=== PATIENT | female | born 1985 | race Caucasian/White ===

== ENCOUNTER 2020-08-15 06:34 | Day surgery (SDC) | payer OTHER, SELFPAY ==
[2020-08-12 08:54] VITALS: BMI 20.2
--- NOTE | 2020-08-13 10:50 | HO.ANESPROP2 ---
Documented by User: Claire Bernardo 08/13/20 10:53 HPI - Anesthesia Eval Consult details Narrative: 35yo F for ECT Mult allergies PMFSH Past Medical History Medical History Anxiety Bipolar 1 disorder Depression History of electroconvulsive therapy Vasovagal episode Social History Social History Smoking Status: Never smoker Second Hand Smoke Exposure: No Use of substances other than those prescribed or required for medical reasons: No Advance Directives: No Advance Directives Information Provided: No Meds Allergies Allergy/AdvReac Type Severity Reaction Status Date / Time adhesive tape [ADHESIVE TAPE] Allergy Unknown unknown Unverified 07/31/20 17:22 bee pollen [BEE STINGS] Allergy Unknown anaphylaxis Unverified 07/31/20 17:22 Iodinated Contrast Media Allergy Unknown unknown Unverified 07/31/20 17:22 [CONTRAST, IV] metaxalone [From SKELAXIN] Allergy Unknown unknown Unverified 07/31/20 17:22 monocryl/vicryl sutures Allergy Unknown unknown Unverified 07/31/20 17:22 morphine [MORPHINE] Allergy Unknown unknown Unverified 07/31/20 17:22 moxifloxacin [From AVELOX] Allergy Unknown unknown Unverified 07/31/20 17:22 orange [ORANGES] Allergy Unknown anaphylaxis Unverified 07/31/20 17:22 red dye [RED DYE] Allergy Unknown unknown Unverified 07/31/20 17:22 Sulfa (Sulfonamide Allergy Unknown UNKNOWN Unverified 07/31/20 17:22 Antibiotics) [SULFA (SULFONAMIDE ANTIBIOTICS)] lamotrigine [From LAMICTAL] AdvReac Intermediate hx of Unverified 07/31/20 17:22 yennifer on doses greater that 200 mg Adhesive Bandages Allergy Unknown Uncoded 11/13/19 00:00 bees/wasps Allergy Unknown Uncoded 11/13/19 00:00 ivp contrast dye Allergy Unknown Uncoded 11/13/19 00:00 lychees Allergy Unknown Uncoded 11/13/19 00:00 oranges Allergy Unknown Uncoded 11/13/19 00:00 red dyes Allergy Unknown Uncoded 11/13/19 00:00 Home Medications Medication Instructions Recorded Confirmed Type albuterol mcg INHALATION 08/12/20 History cariprazine [Vraylar] 6 mg PO DAILY 08/12/20 08/12/20 History cetirizine [Zyrtec] 10 mg PO DAILY 08/12/20 08/12/20 History clonazepam 1 mg PO DAILY 08/12/20 08/12/20 History clozapine [Clozaril] 50 mg PO BID 08/12/20 08/12/20 History dexmethylphenidate 10 mg PO BID 08/12/20 08/12/20 History diphenhydramine HCl [Banophen] 50 mg PO TID PRN 08/12/20 08/12/20 History epinephrine 0.1 mg IM Q30M PRN 08/12/20 08/12/20 History famotidine 40 mg PO BEDTIME 08/12/20 08/12/20 History fluticasone propion-salmeterol 1 inh INHALATION BID 08/12/20 08/12/20 History [Advair Diskus] fluticasone propionate [Flonase] 1 spray INTRANASAL BID 08/12/20 08/12/20 History ipratropium-albuterol 3 ml INHALATION QID 08/12/20 08/12/20 History levonorgestrel-ethinyl estrad 1 tab PO DAILY 08/12/20 08/12/20 History [Quasense] metoprolol tartrate 25 mg PO BID 08/12/20 08/12/20 History prazosin 5 mg PO TID 08/12/20 08/12/20 History temazepam 30 mg PO BEDTIME PRN 08/12/20 08/12/20 History topiramate 50 mg PO BID 08/12/20 08/12/20 History zolpidem 10 mg PO BEDTIME PRN 08/12/20 08/12/20 History Exam Exam Date and Time: August 13, 2020 1050 Height,Weight and Vital Signs: Height 5 ft 9 in Weight 62.142 kg Documented by User: Paulina Molina 08/15/20 07:15 [facility] [place] Past Medical History Medical History Anxiety Bipolar 1 disorder Depression History of electroconvulsive therapy Vasovagal episode Social History Social History Smoking Status: Never smoker Second Hand Smoke Exposure: No Use of substances other than those prescribed or required for medical reasons: No Advance Directives: No Advance Directives Information Provided: No Meds Allergies Allergy/AdvReac Type Severity Reaction Status Date / Time adhesive tape [ADHESIVE TAPE] Allergy Unknown unknown Unverified 07/31/20 17:22 bee pollen [BEE STINGS] Allergy Unknown anaphylaxis Unverified 07/31/20 17:22 Iodinated Contrast Media Allergy Unknown unknown Unverified 07/31/20 17:22 [CONTRAST, IV] metaxalone [From SKELAXIN] Allergy Unknown unknown Unverified 07/31/20 17:22 monocryl/vicryl sutures Allergy Unknown unknown Unverified 07/31/20 17:22 morphine [MORPHINE] Allergy Unknown unknown Unverified 07/31/20 17:22 moxifloxacin [From AVELOX] Allergy Unknown unknown Unverified 07/31/20 17:22 orange [ORANGES] Allergy Unknown anaphylaxis Unverified 07/31/20 17:22 red dye [RED DYE] Allergy Unknown unknown Unverified 07/31/20 17:22 Sulfa (Sulfonamide Allergy Unknown UNKNOWN Unverified 07/31/20 17:22 Antibiotics) [SULFA (SULFONAMIDE ANTIBIOTICS)] lamotrigine [From LAMICTAL] AdvReac Intermediate hx of Unverified 07/31/20 17:22 yennifer on doses greater that 200 mg Adhesive Bandages Allergy Unknown Uncoded 11/13/19 00:00 bees/wasps Allergy Unknown Uncoded 11/13/19 00:00 ivp contrast dye Allergy Unknown Uncoded 11/13/19 00:00 lychees Allergy Unknown Uncoded 11/13/19 00:00 oranges Allergy Unknown Uncoded 11/13/19 00:00 red dyes Allergy Unknown Uncoded 11/13/19 00:00 Home Medications Medication Instructions Recorded Confirmed Type albuterol mcg INHALATION 08/12/20 History cariprazine [Vraylar] 6 mg PO DAILY 08/12/20 08/12/20 History cetirizine [Zyrtec] 10 mg PO DAILY 08/12/20 08/12/20 History clonazepam 1 mg PO DAILY 08/12/20 08/12/20 History clozapine [Clozaril] 50 mg PO BID 08/12/20 08/12/20 History dexmethylphenidate 10 mg PO BID 08/12/20 08/12/20 History diphenhydramine HCl [Banophen] 50 mg PO TID PRN 08/12/20 08/12/20 History epinephrine 0.1 mg IM Q30M PRN 08/12/20 08/12/20 History famotidine 40 mg PO BEDTIME 08/12/20 08/12/20 History fluticasone propion-salmeterol 1 inh INHALATION BID 08/12/20 08/12/20 History [Advair Diskus] fluticasone propionate [Flonase] 1 spray INTRANASAL BID 08/12/20 08/12/20 History ipratropium-albuterol 3 ml INHALATION QID 08/12/20 08/12/20 History levonorgestrel-ethinyl estrad 1 tab PO DAILY 08/12/20 08/12/20 History [Quasense] metoprolol tartrate 25 mg PO BID 08/12/20 08/12/20 History prazosin 5 mg PO TID 08/12/20 08/12/20 History temazepam 30 mg PO BEDTIME PRN 08/12/20 08/12/20 History topiramate 50 mg PO BID 08/12/20 08/12/20 History zolpidem 10 mg PO BEDTIME PRN 08/12/20 08/12/20 History Exam Airway Mallampati Class: I TM Dist: >3cm Neck ROM: Full Heart: RRR Lungs: CTA Assessment and Plan Assessment Anesthesia Assessment: Anesthesia Plan Discussed and Consent Obtained Final Anesthetic Review NPO: Yes ASA Class: II Final Preanesthetic Review: No Changes in Pt Med Stat, Meds & Allergies Reviewed, Consent Obtained/Reviewed and Med/Surg/Anes Hx Reviewed Patient Risk: Low Procedure Risk: Intermediate Anesthetic Plan Anesthetic Plan: GA Disposition: Standard PACU
[2020-08-15] VITALS (7 sets, daily range): BP systolic 107–133; BP diastolic 70–89; PULSE 84–112; RESP 16–28; TEMP 36.5–37.3; O2SAT 100
[2020-08-15] MEDS: Lactated Ringers 1,000 ML 100 ML IVCONT (06:46)
--- NOTE | 2020-08-15 07:05 | MHC.SHP ---
Surgical H&P Section B Chief Complaint: SEVERE DEPRESSION Allergies: Allergies Allergy/AdvReac Type Severity Reaction Status Date / Time adhesive tape [ADHESIVE TAPE] Allergy Unknown unknown Unverified 07/31/20 17:22 bee pollen [BEE STINGS] Allergy Unknown anaphylaxis Unverified 07/31/20 17:22 Iodinated Contrast Media Allergy Unknown unknown Unverified 07/31/20 17:22 [CONTRAST, IV] metaxalone [From SKELAXIN] Allergy Unknown unknown Unverified 07/31/20 17:22 monocryl/vicryl sutures Allergy Unknown unknown Unverified 07/31/20 17:22 morphine [MORPHINE] Allergy Unknown unknown Unverified 07/31/20 17:22 moxifloxacin [From AVELOX] Allergy Unknown unknown Unverified 07/31/20 17:22 orange [ORANGES] Allergy Unknown anaphylaxis Unverified 07/31/20 17:22 red dye [RED DYE] Allergy Unknown unknown Unverified 07/31/20 17:22 Sulfa (Sulfonamide Allergy Unknown UNKNOWN Unverified 07/31/20 17:22 Antibiotics) [SULFA (SULFONAMIDE ANTIBIOTICS)] lamotrigine [From LAMICTAL] AdvReac Intermediate hx of Unverified 07/31/20 17:22 yennifer on doses greater that 200 mg Adhesive Bandages Allergy Unknown Uncoded 11/13/19 00:00 bees/wasps Allergy Unknown Uncoded 11/13/19 00:00 ivp contrast dye Allergy Unknown Uncoded 11/13/19 00:00 lychees Allergy Unknown Uncoded 11/13/19 00:00 oranges Allergy Unknown Uncoded 11/13/19 00:00 red dyes Allergy Unknown Uncoded 11/13/19 00:00 Plan Patient has been examined and remains a candidate for the planned procedure
--- NOTE | 2020-08-15 07:33 | HO.ECTPROC ---
ECT Procedure Note Diagnosis/Treatment Diagnosis: Bipolar disorder Previous ECT Date: 08/13/20 Current Treatment Number: 5 Treatment: Series Interval Clinical Notes: pt calmer not over manic flat dysphoric no si ECT Settings Device: THYMATRON DGx Electrode Placement: Right Unilateral Program/Pulse Width: 0.25 Energy Percent: 30 Seizure Duration By EEG (in seconds): 41 Medications Administration General Anesthetic: Etomidate (16 mg) Muscle Relaxant: Succinylcholine (100 mg) Ancillary Medications Analgesics: Torodol - Pre ECT (15) Anti-emetics: Zofran - Pre ECT (4) Miscillaneous Medications: Propofol (30 mg post) and Midazolam (2 mg post) Airway Management Airway Management: Bag Mask Ventilation Treatment Recommendations No Changes Recommended: No change Pt Tolerated Procedure w/o Issue: Yes
--- NOTE | 2020-08-15 07:45 | MHC.SHP ---
Surgical H&P Section A The patient is an INPATIENT: No Changes since office visit: No Cold of Flu in the past 2 weeks, No New Medical Problems, No Changes in Medication and No Patient answered all questions The History & Physical has been completed within 30 days and I have reviewed it.: Yes Section B Chief Complaint: SEVERE DEPRESSION Allergies: Allergies Allergy/AdvReac Type Severity Reaction Status Date / Time adhesive tape [ADHESIVE TAPE] Allergy Unknown unknown Unverified 07/31/20 17:22 bee pollen [BEE STINGS] Allergy Unknown anaphylaxis Unverified 07/31/20 17:22 Iodinated Contrast Media Allergy Unknown unknown Unverified 07/31/20 17:22 [CONTRAST, IV] metaxalone [From SKELAXIN] Allergy Unknown unknown Unverified 07/31/20 17:22 monocryl/vicryl sutures Allergy Unknown unknown Unverified 07/31/20 17:22 morphine [MORPHINE] Allergy Unknown unknown Unverified 07/31/20 17:22 moxifloxacin [From AVELOX] Allergy Unknown unknown Unverified 07/31/20 17:22 orange [ORANGES] Allergy Unknown anaphylaxis Unverified 07/31/20 17:22 red dye [RED DYE] Allergy Unknown unknown Unverified 07/31/20 17:22 Sulfa (Sulfonamide Allergy Unknown UNKNOWN Unverified 07/31/20 17:22 Antibiotics) [SULFA (SULFONAMIDE ANTIBIOTICS)] lamotrigine [From LAMICTAL] AdvReac Intermediate hx of Unverified 07/31/20 17:22 yennifer on doses greater that 200 mg Adhesive Bandages Allergy Unknown Uncoded 11/13/19 00:00 bees/wasps Allergy Unknown Uncoded 11/13/19 00:00 ivp contrast dye Allergy Unknown Uncoded 11/13/19 00:00 lychees Allergy Unknown Uncoded 11/13/19 00:00 oranges Allergy Unknown Uncoded 11/13/19 00:00 red dyes Allergy Unknown Uncoded 11/13/19 00:00 Plan Patient has been examined and remains a candidate for the planned procedure
--- NOTE | 2020-08-15 07:52 | P.CONAN_ITS ---
[facility] Past Medical History Medical History Anxiety Bipolar 1 disorder Depression History of electroconvulsive therapy Vasovagal episode Social History Social History Smoking Status: Never smoker Second Hand Smoke Exposure: No Use of substances other than those prescribed or required for medical reasons: No Advance Directives: No Advance Directives Information Provided: No Meds Allergies Allergy/AdvReac Type Severity Reaction Status Date / Time adhesive tape [ADHESIVE TAPE] Allergy Unknown unknown Unverified 07/31/20 17:22 bee pollen [BEE STINGS] Allergy Unknown anaphylaxis Unverified 07/31/20 17:22 Iodinated Contrast Media Allergy Unknown unknown Unverified 07/31/20 17:22 [CONTRAST, IV] metaxalone [From SKELAXIN] Allergy Unknown unknown Unverified 07/31/20 17:22 monocryl/vicryl sutures Allergy Unknown unknown Unverified 07/31/20 17:22 morphine [MORPHINE] Allergy Unknown unknown Unverified 07/31/20 17:22 moxifloxacin [From AVELOX] Allergy Unknown unknown Unverified 07/31/20 17:22 orange [ORANGES] Allergy Unknown anaphylaxis Unverified 07/31/20 17:22 red dye [RED DYE] Allergy Unknown unknown Unverified 07/31/20 17:22 Sulfa (Sulfonamide Allergy Unknown UNKNOWN Unverified 07/31/20 17:22 Antibiotics) [SULFA (SULFONAMIDE ANTIBIOTICS)] lamotrigine [From LAMICTAL] AdvReac Intermediate hx of Unverified 07/31/20 17:22 yennifer on doses greater that 200 mg Adhesive Bandages Allergy Unknown Uncoded 11/13/19 00:00 bees/wasps Allergy Unknown Uncoded 11/13/19 00:00 ivp contrast dye Allergy Unknown Uncoded 11/13/19 00:00 lychees Allergy Unknown Uncoded 11/13/19 00:00 oranges Allergy Unknown Uncoded 11/13/19 00:00 red dyes Allergy Unknown Uncoded 11/13/19 00:00 Home Medications Medication Instructions Recorded Confirmed Type albuterol mcg INHALATION 08/12/20 History cariprazine [Vraylar] 6 mg PO DAILY 08/12/20 08/12/20 History cetirizine [Zyrtec] 10 mg PO DAILY 08/12/20 08/12/20 History clonazepam 1 mg PO DAILY 08/12/20 08/12/20 History clozapine [Clozaril] 50 mg PO BID 08/12/20 08/12/20 History dexmethylphenidate 10 mg PO BID 08/12/20 08/12/20 History diphenhydramine HCl [Banophen] 50 mg PO TID PRN 08/12/20 08/12/20 History epinephrine 0.1 mg IM Q30M PRN 08/12/20 08/12/20 History famotidine 40 mg PO BEDTIME 08/12/20 08/12/20 History fluticasone propion-salmeterol 1 inh INHALATION BID 08/12/20 08/12/20 History [Advair Diskus] fluticasone propionate [Flonase] 1 spray INTRANASAL BID 08/12/20 08/12/20 Histo ry ipratropium-albuterol 3 ml INHALATION QID 08/12/20 08/12/20 History levonorgestrel-ethinyl estrad 1 tab PO DAILY 08/12/20 08/12/20 History [Quasense] metoprolol tartrate 25 mg PO BID 08/12/20 08/12/20 History prazosin 5 mg PO TID 08/12/20 08/12/20 History temazepam 30 mg PO BEDTIME PRN 08/12/20 08/12/20 History topiramate 50 mg PO BID 08/12/20 08/12/20 History zolpidem 10 mg PO BEDTIME PRN 08/12/20 08/12/20 History Exam Exam Date and Time: August 15, 2020 075 Height,Weight and Vital Signs: Height 5 ft 9 in Weight 62.142 kg Last Vital Signs Temp 97.7 F 08/15/20 07:35 Pulse 105 H 08/15/20 07:43 Resp 25 H 08/15/20 07:43 BP 122/83 08/15/20 07:43 Pulse Ox 100 08/15/20 07:43
--- NOTE | 2020-08-15 08:00 | P.PCN_ITS ---
ECT Procedure Note Diagnosis/Treatment Diagnosis: Bipolar disorder Previous ECT Date: 08/13/20 Current Treatment Number: 5 Treatment: Series Interval Clinical Notes: pt calmer not over manic flat dysphoric no si discou raged ECT Settings Device: THYMATRON DGx Electrode Placement: Right Unilateral Program/Pulse Width: 0.25 Energy Percent: 30 Seizure Duration By EEG (in seconds): 41 Medications Administration General Anesthetic: Etomidate (16 mg) Muscle Relaxant: Succinylcholine (100 mg) Ancillary Medications Analgesics: Torodol - Pre ECT (15) Anti-emetics: Zofran - Pre ECT (4) Miscillaneous Medications: Propofol (30 mg post) and Midazolam (2 mg post) Airway Management Airway Management: Bag Mask Ventilation Treatment Recommendations No Changes Recommended: No change Pt Tolerated Procedure w/o Issue: Yes
[2020-08-15] MEDS: Acetaminophen 325 MG TABLET 650 MG PO (08:03)
[2020-08-15] MEDS: oxyCODONE HCl Immed Release 5 MG TABLET PO (08:04)
== END 2020-08-15 08:30 | disposition home or self-care (01) ==
PROVIDERS: Psychiatry & Neurology Psychiatry; PCP Internal Medicine; Visit Provider Psychiatry & Neurology Psychiatry
PROC: (CPT 90870; principal; 2020-08-15 07:00)
DX: F31.9 Bipolar disorder, unspecified (principal); F98.8 Other specified behavioral and emotional disorders with onset usually occurring in childhood and adolescence; F50.9 Eating disorder, unspecified; F43.10 Post-traumatic stress disorder, unspecified; J45.909 Unspecified asthma, uncomplicated; D64.9 Anemia, unspecified; Z79.51 Long term (current) use of inhaled steroids; Z79.899 Other long term (current) drug therapy; Z91.041 Radiographic dye allergy status; Z88.2 Allergy status to sulfonamides; Z88.1 Allergy status to other antibiotic agents; Z88.8 Allergy status to other drugs, medicaments and biological substances
CPT/HCPCS: 90870; J0330; J1885; J2250; J2405

== ENCOUNTER 2020-08-20 06:07 | Day surgery (SDC) | payer OTHER, SELFPAY ==
[2020-08-20] VITALS (11 sets, daily range): BP systolic 112–134; BP diastolic 68–88; PULSE 74–112; RESP 13–22; TEMP 36.9–37; O2SAT 98–100; BMI 19.2
--- NOTE | 2020-08-20 07:19 | HO.ANESPROP2 ---
[facility] Past Medical History Medical History Anxiety Bipolar 1 disorder Depression History of electroconvulsive therapy Vasovagal episode Social History Social History Smoking Status: Never smoker Second Hand Smoke Exposure: No Use of substances other than those prescribed or required for medical reasons: No Advance Directives: No Advance Directives Information Provided: Yes Advance Directives on File: No Recently lost weight without trying: No Meds Allergies Allergy/AdvReac Type Severity Reaction Status Date / Time adhesive tape [ADHESIVE TAPE] Allergy Unknown unknown Unverified 07/31/20 17:22 bee pollen [BEE STINGS] Allergy Unknown anaphylaxis Unverified 07/31/20 17:22 Iodinated Contrast Media Allergy Unknown unknown Unverified 07/31/20 17:22 [CONTRAST, IV] metaxalone [From SKELAXIN] Allergy Unknown unknown Unverified 07/31/20 17:22 monocryl/vicryl sutures Allergy Unknown unknown Unverified 07/31/20 17:22 morphine [MORPHINE] Allergy Unknown unknown Unverified 07/31/20 17:22 moxifloxacin [From AVELOX] Allergy Unknown unknown Unverified 07/31/20 17:22 orange [ORANGES] Allergy Unknown anaphylaxis Unverified 07/31/20 17:22 red dye [RED DYE] Allergy Unknown unknown Unverified 07/31/20 17:22 Sulfa (Sulfonamide Allergy Unknown UNKNOWN Unverified 07/31/20 17:22 Antibiotics) [SULFA (SULFONAMIDE ANTIBIOTICS)] lamotrigine [From LAMICTAL] AdvReac Intermediate hx of Unverified 07/31/20 17:22 yennifer on doses greater that 200 mg Adhesive Bandages Allergy Unknown Uncoded 11/13/19 00:00 bees/wasps Allergy Unknown Uncoded 11/13/19 00:00 ivp contrast dye Allergy Unknown Uncoded 11/13/19 00:00 lychees Allergy Unknown Uncoded 11/13/19 00:00 oranges Allergy Unknown Uncoded 11/13/19 00:00 red dyes Allergy Unknown Uncoded 11/13/19 00:00 Home Medications Medication Instructions Recorded Confirmed Type Vraylar 6 mg PO DAILY 08/12/20 08/12/20 History albuterol mcg INHALATION 08/12/20 History cetirizine [Zyrtec] 10 mg PO DAILY 08/12/20 08/12/20 History clonazepam 1 mg PO DAILY 08/12/20 08/12/20 History clozapine [Clozaril] 50 mg PO BID 08/12/20 08/12/20 History dexmethylphenidate 10 mg PO BID 08/12/20 08/12/20 History diphenhydramine HCl [Banophen] 50 mg PO TID PRN 08/12/20 08/12/20 History epinephrine 0.1 mg IM Q30M PRN 08/12/20 08/12/20 History famotidine 40 mg PO BEDTIME 08/12/20 08/12/20 History fluticasone propion-salmeterol 1 inh INHALATION BID 08/12/20 08/12/20 History [Advair Diskus] fluticasone propionate 1 spray INTRANASAL BID 08/12/20 08/12/20 History ipratropium-albuterol 3 ml INHALATION QID 08/12/20 08/12/20 History levonorgestrel-ethinyl estrad 1 tab PO DAILY 08/12/20 08/12/20 History metoprolol tartrate 25 mg PO BID 08/12/20 08/12/20 History prazosin 5 mg PO TID 08/12/20 08/12/20 History temazepam 30 mg PO BEDTIME PRN 08/12/20 08/12/20 History topiramate 50 mg PO BID 08/12/20 08/12/20 History zolpidem 10 mg PO BEDTIME PRN 08/12/20 08/12/20 History Exam Exam Date and Time: August 20, [id number] Height,Weight and Vital Signs: Height 5 ft 9 in Weight 133 kg Last Vital Signs Temp 98.4 F 08/20/20 06:51 Pulse 103 H 08/20/20 07:14 Resp 17 08/20/20 07:14 BP 121/81 08/20/20 07:14 Pulse Ox 100 08/20/20 07:14 Assessment and Plan Assessment Anesthesia Assessment: Anesthesia Plan Discussed Final Anesthetic Review NPO: Yes Final Preanesthetic Review: No Changes in Pt Med Stat, Meds/Allgs Chart Reviewed and Consent Obtained/Reviewed Patient Risk: Low Procedure Risk: Low Anesthetic Plan Anesthetic Plan: GA
[2020-08-20] MEDS: Lactated Ringers 1,000 ML 50 ML IVCONT (07:24)
--- NOTE | 2020-08-20 07:25 | P.CONAN_ITS ---
HPI - Anesthesia Eval Consult details Narrative: Major Depression [facility] Past Medical History Medical History Anxiety Bipolar 1 disorder Depression History of electroconvulsive therapy Vasovagal episode Social History Social History Smoking Status: Never smoker Second Hand Smoke Exposure: No Use of substances other than those prescribed or required for medical reasons: No Advance Directives: No Advance Directives Information Provided: Yes Advance Directives on File: No Recently lost weight without trying: No Meds Allergies Allergy/AdvReac Type Severity Reaction Status Date / Time adhesive tape [ADHESIVE TAPE] Allergy Unknown unknown Unverified 07/31/20 17:22 bee pollen [BEE STINGS] Allergy Unknown anaphylaxis Unverified 07/31/20 17:22 Iodinated Contrast Media Allergy Unknown unknown Unverified 07/31/20 17:22 [CONTRAST, IV] metaxalone [From SKELAXIN] Allergy Unknown unknown Unverified 07/31/20 17:22 monocryl/vicryl sutures Allergy Unknown unknown Unverified 07/31/20 17:22 morphine [MORPHINE] Allergy Unknown unknown Unverified 07/31/20 17:22 moxifloxacin [From AVELOX] Allergy Unknown unknown Unverified 07/31/20 17:22 orange [ORANGES] Allergy Unknown anaphylaxis Unverified 07/31/20 17:22 red dye [RED DYE] Allergy Unknown unknown Unverified 07/31/20 17:22 Sulfa (Sulfonamide Allergy Unknown UNKNOWN Unverified 07/31/20 17:22 Antibiotics) [SULFA (SULFONAMIDE ANTIBIOTICS)] lamotrigine [From LAMICTAL] AdvReac Intermediate hx of Unverified 07/31/20 17:22 yennifer on doses greater that 200 mg Adhesive Bandages Allergy Unknown Uncoded 11/13/19 00:00 bees/wasps Allergy Unknown Uncoded 11/13/19 00:00 ivp contrast dye Allergy Unknown Uncoded 11/13/19 00:00 lychees Allergy Unknown Uncoded 11/13/19 00:00 oranges Allergy Unknown Uncoded 11/13/19 00:00 red dyes Allergy Unknown Uncoded 11/13/19 00:00 Home Medications Medication Instructions Recorded Confirmed Type Vraylar 6 mg PO DAILY 08/12/20 08/12/20 History albuterol mcg INHALATION 08/12/20 History cetirizine [Zyrtec] 10 mg PO DAILY 08/12/20 08/12/20 History clonazepam 1 mg PO DAILY 08/12/20 08/12/20 History clozapine [Clozaril] 50 mg PO BID 08/12/20 08/12/20 History dexmethylphenidate 10 mg PO BID 08/12/20 08/12/20 History diphenhydramine HCl [Banophen] 50 mg PO TID PRN 08/12/20 08/12/20 History epinephrine 0.1 mg IM Q30M PRN 08/12/20 08/12/20 History famotidine 40 mg PO BEDTIME 08/12/20 08/12/20 History fluticasone propion-salmeterol 1 inh INHALATION BID 08/12/20 08/12/20 History [Advair Diskus] fluticasone propionate 1 spray INTRANASAL BID 08/12/20 08/12/20 History ipratropium-albuterol 3 ml INHALATION QID 08/12/20 08/12/20 History levonorgestrel-ethinyl estrad 1 tab PO DAILY 08/12/20 08/12/20 History metoprolol tartrate 25 mg PO BID 08/12/20 08/12/20 History prazosin 5 mg PO TID 08/12/20 08/12/20 History temazepam 30 mg PO BEDTIME PRN 08/12/20 08/12/20 History topiramate 50 mg PO BID 08/12/20 08/12/20 History zolpidem 10 mg PO BEDTIME PRN 08/12/20 08/12/20 History Exam Exam Date and Time: August 20, [id number] Height,Weight and Vital Signs: Height 5 ft 9 in Weight 58.967 kg Last Vital Signs Temp 98.4 F 08/20/20 06:51 Pulse 103 H 08/20/20 07:14 Resp 17 08/20/20 07:14 BP 121/81 08/20/20 07:14 Pulse Ox 100 08/20/20 07:14 Airway Mallampati Class: II TM Dist: >3cm Neck ROM: Full Loose/Missing/Broken Teeth: No Heart: [id number] Lungs: cta b/l Assessment and Plan Assessment Anesthesia Assessment: Anesthesia Plan Discussed and Chart Reviewed Final Anesthetic Review NPO: Yes ASA Class: II Final Preanesthetic Review: No Changes in Pt Med Stat, Meds/Allgs Chart Reviewed, Consent Obtained/Reviewed and Anes Risks/Benef Reviewed Patient Risk: Low Procedure Risk: Low Anesthetic Plan Anesthetic Plan: GA Disposition: Standard PACU
--- NOTE | 2020-08-20 07:40 | MHC.SHP ---
Pre-Procedural Eval Section A The patient is an INPATIENT: No Changes since office visit: No Cold of Flu in the past 2 weeks, No New Medical Problems, No Changes in Medication and No Patient answered all questions The History & Physical has been completed within 30 days and I have reviewed it.: Yes Section B Chief Complaint: severe depression Allergies: Allergies Allergy/AdvReac Type Severity Reaction Status Date / Time adhesive tape [ADHESIVE TAPE] Allergy Unknown unknown Unverified 07/31/20 17:22 bee pollen [BEE STINGS] Allergy Unknown anaphylaxis Unverified 07/31/20 17:22 Iodinated Contrast Media Allergy Unknown unknown Unverified 07/31/20 17:22 [CONTRAST, IV] metaxalone [From SKELAXIN] Allergy Unknown unknown Unverified 07/31/20 17:22 monocryl/vicryl sutures Allergy Unknown unknown Unverified 07/31/20 17:22 morphine [MORPHINE] Allergy Unknown unknown Unverified 07/31/20 17:22 moxifloxacin [From AVELOX] Allergy Unknown unknown Unverified 07/31/20 17:22 orange [ORANGES] Allergy Unknown anaphylaxis Unverified 07/31/20 17:22 red dye [RED DYE] Allergy Unknown unknown Unverified 07/31/20 17:22 Sulfa (Sulfonamide Allergy Unknown UNKNOWN Unverified 07/31/20 17:22 Antibiotics) [SULFA (SULFONAMIDE ANTIBIOTICS)] lamotrigine [From LAMICTAL] AdvReac Intermediate hx of Unverified 07/31/20 17:22 yennifer on doses greater that 200 mg Adhesive Bandages Allergy Unknown Uncoded 11/13/19 00:00 bees/wasps Allergy Unknown Uncoded 11/13/19 00:00 ivp contrast dye Allergy Unknown Uncoded 11/13/19 00:00 lychees Allergy Unknown Uncoded 11/13/19 00:00 oranges Allergy Unknown Uncoded 11/13/19 00:00 red dyes Allergy Unknown Uncoded 11/13/19 00:00 Plan Patient has been examined and remains a candidate for the planned procedure
[2020-08-20] MEDS: Acetaminophen 325 MG TABLET 650 MG PO (08:03)
[2020-08-20] MEDS: oxyCODONE HCl Immed Release 5 MG TABLET PO (08:03)
[2020-08-20] MEDS: ondansetron HCL 4 MG/2 ML VIAL IVPUSH (08:21)
--- NOTE | 2020-08-20 08:33 | HO.ECTPROC ---
ECT Procedure Note Diagnosis/Treatment Diagnosis: Bipolar disorder Previous ECT Date: 08/13/20 Current Treatment Number: 5 Treatment: Series Interval Clinical Notes: Depressed ECT Settings Device: THYMATRON DGx Electrode Placement: Right Unilateral Program/Pulse Width: 0.25 Energy Percent: 30 Seizure Duration By EEG (in seconds): 50 By Motor Observation (in seconds): 36 Medications Administration General Anesthetic: Etomidate (16) Muscle Relaxant: Succinylcholine (100) Ancillary Medications Analgesics: Torodol - Pre ECT (15) Anti-emetics: Zofran - Pre ECT (4) Miscillaneous Medications: Propofol (30) Airway Management Airway Management: Bag Mask Ventilation Treatment Recommendations No Changes Recommended: No change (No Flumazenil used. Could use if takes Clonazepam) Electrode Placement: Right Unilateral Program/Pulse Width: 0.25 Energy Percent: 20 Pt Tolerated Procedure w/o Issue: Yes
--- NOTE | 2020-08-20 08:38 | HO.POSTANES ---
Post Anesthesia Evaluation Post Anesthesia Evaluation Vital Signs: Vital Signs Temp Pulse Resp BP Pulse Ox 08/20/20 08:25 90 18 122/76 98 08/20/20 08:10 88 18 119/87 100 08/20/20 07:55 102 H 21 H 132/68 99 08/20/20 07:50 106 H 13 134/88 100 08/20/20 07:45 111 H 22 H 126/78 100 08/20/20 07:40 98.6 F 74 21 H 112/68 99 08/20/20 07:26 112 H 18 127/78 08/20/20 07:14 103 H 17 121/81 100 08/20/20 06:51 98.4 F 93 16 121/81 98 Anesthesia: General Mental Status: Awake Pain Control: Satisfactory Nausea/Vomiting: None Hydration: Adequate Anesthesia-Related Issues: No Anes. Related Issues
[2020-08-20] MEDS: diphenhydrAMINE HCL 25 MG TABLET PO (08:44)
== END 2020-08-20 09:18 | disposition home or self-care (01) ==
PROVIDERS: PCP Internal Medicine; Visit Provider Psychiatry & Neurology Psychiatry
PROC: (CPT 90870; principal; 2020-08-20 07:30)
DX: F31.9 Bipolar disorder, unspecified (principal); F41.9 Anxiety disorder, unspecified
CPT/HCPCS: 90870; J0330; J1885; J2405; Q0163

== ENCOUNTER 2020-08-22 06:28 | Day surgery (SDC) | payer OTHER, SELFPAY ==
[2020-08-22] VITALS (7 sets, daily range): BP systolic 106–130; BP diastolic 38–72; PULSE 76–90; RESP 16–18; TEMP 36.1–36.8; O2SAT 94–100; BMI 22.1
--- NOTE | 2020-08-22 07:01 | HO.ANESPROP2 ---
FORMERLY [facility], 1928–1983 Past Medical History Medical History Anxiety Bipolar 1 disorder Depression History of electroconvulsive therapy Vasovagal episode Social History Social History Are you a primary medicare nurse to a significant other at home: No Do you presently have visiting nurse or other home services: No Smoking Status: Never smoker Second Hand Smoke Exposure: No Use of substances other than those prescribed or required for medical reasons: No Have you been hit, kicked, punched, or otherwise hurt by someone within the past year? If so, by whom?: No Advance Directives: No Recently lost weight without trying: No Meds Allergies Allergy/AdvReac Type Severity Reaction Status Date / Time adhesive tape [ADHESIVE TAPE] Allergy Unknown unknown Unverified 07/31/20 17:22 bee pollen [BEE STINGS] Allergy Unknown anaphylaxis Unverified 07/31/20 17:22 Iodinated Contrast Media Allergy Unknown unknown Unverified 07/31/20 17:22 [CONTRAST, IV] metaxalone [From SKELAXIN] Allergy Unknown unknown Unverified 07/31/20 17:22 monocryl/vicryl sutures Allergy Unknown unknown Unverified 07/31/20 17:22 morphine [MORPHINE] Allergy Unknown unknown Unverified 07/31/20 17:22 moxifloxacin [From AVELOX] Allergy Unknown unknown Unverified 07/31/20 17:22 orange [ORANGES] Allergy Unknown anaphylaxis Unverified 07/31/20 17:22 red dye [RED DYE] Allergy Unknown unknown Unverified 07/31/20 17:22 Sulfa (Sulfonamide Allergy Unknown UNKNOWN Unverified 07/31/20 17:22 Antibiotics) [SULFA (SULFONAMIDE ANTIBIOTICS)] lamotrigine [From LAMICTAL] AdvReac Intermediate hx of Unverified 07/31/20 17:22 yennifer on doses greater that 200 mg Adhesive Bandages Allergy Unknown Uncoded 11/13/19 00:00 bees/wasps Allergy Unknown Uncoded 11/13/19 00:00 ivp contrast dye Allergy Unknown Uncoded 11/13/19 00:00 lychees Allergy Unknown Uncoded 11/13/19 00:00 oranges Allergy Unknown Uncoded 11/13/19 00:00 red dyes Allergy Unknown Uncoded 11/13/19 00:00 Home Medications Medication Instructions Recorded Confirmed Type Vraylar 6 mg PO DAILY 08/12/20 08/12/20 History albuterol mcg INHALATION 08/12/20 History cetirizine [Zyrtec] 10 mg PO DAILY 08/12/20 08/12/20 History clonazepam 1 mg PO DAILY 08/12/20 08/12/20 History clozapine [Clozaril] 50 mg PO BID 08/12/20 08/12/20 History dexmethylphenidate 10 mg PO BID 08/12/20 08/12/20 History diphenhydramine HCl [Banophen] 50 mg PO TID PRN 08/12/20 08/12/20 History epinephrine 0.1 mg IM Q30M PRN 08/12/20 08/12/20 History famotidine 40 mg PO BEDTIME 08/12/20 08/12/20 History fluticasone propion-salmeterol 1 inh INHALATION BID 08/12/20 08/12/20 History [Advair Diskus] fluticasone propionate 1 spray INTRANASAL BID 08/12/20 08/12/20 History ipratropium-albuterol 3 ml INHALATION QID 08/12/20 08/12/20 History levonorgestrel-ethinyl estrad 1 tab PO DAILY 08/12/20 08/12/20 History metoprolol tartrate 25 mg PO BID 08/12/20 08/12/20 History prazosin 5 mg PO TID 08/12/20 08/12/20 History temazepam 30 mg PO BEDTIME PRN 08/12/20 08/12/20 History topiramate 50 mg PO BID 08/12/20 08/12/20 History zolpidem 10 mg PO BEDTIME PRN 08/12/20 08/12/20 History Exam Exam Date and Time: August 22, 2020 07 Height,Weight and Vital Signs: Height 5 ft 5 in Weight 60.328 kg Last Vital Signs Temp 96.9 F 08/22/20 06:32 Pulse 76 08/22/20 06:32 Resp 18 08/22/20 06:32 BP 110/63 08/22/20 06:32 Pulse Ox 100 08/22/20 06:32 Airway Mallampati Class: II TM Dist: >3cm Neck ROM: Full Loose/Missing/Broken Teeth: No Assessment and Plan Assessment Anesthesia Assessment: Anesthesia Plan Discussed and Chart Reviewed Final Anesthetic Review NPO: Yes ASA Class: II Final Preanesthetic Review: No Changes in Pt Med Stat, Meds/Allgs Chart Reviewed, Consent Obtained/Reviewed and Anes Risks/Benef Reviewed Patient Risk: Low Procedure Risk: Low Assessment/Block/Sedation in SS: Assess/Block/Sedation-SS Anesthetic Plan Anesthetic Plan: GA Disposition: Standard PACU
--- NOTE | 2020-08-22 07:08 | MHC.SHP ---
Pre-Procedural Eval Section A The patient is an INPATIENT: No Changes since office visit: No Cold of Flu in the past 2 weeks, No New Medical Problems, No Changes in Medication and No Patient answered all questions The History & Physical has been completed within 30 days and I have reviewed it.: Yes Section B Chief Complaint: Severe Depression Allergies: Allergies Allergy/AdvReac Type Severity Reaction Status Date / Time adhesive tape [ADHESIVE TAPE] Allergy Unknown unknown Unverified 07/31/20 17:22 bee pollen [BEE STINGS] Allergy Unknown anaphylaxis Unverified 07/31/20 17:22 Iodinated Contrast Media Allergy Unknown unknown Unverified 07/31/20 17:22 [CONTRAST, IV] metaxalone [From SKELAXIN] Allergy Unknown unknown Unverified 07/31/20 17:22 monocryl/vicryl sutures Allergy Unknown unknown Unverified 07/31/20 17:22 morphine [MORPHINE] Allergy Unknown unknown Unverified 07/31/20 17:22 moxifloxacin [From AVELOX] Allergy Unknown unknown Unverified 07/31/20 17:22 orange [ORANGES] Allergy Unknown anaphylaxis Unverified 07/31/20 17:22 red dye [RED DYE] Allergy Unknown unknown Unverified 07/31/20 17:22 Sulfa (Sulfonamide Allergy Unknown UNKNOWN Unverified 07/31/20 17:22 Antibiotics) [SULFA (SULFONAMIDE ANTIBIOTICS)] lamotrigine [From LAMICTAL] AdvReac Intermediate hx of Unverified 07/31/20 17:22 yennifer on doses greater that 200 mg Adhesive Bandages Allergy Unknown Uncoded 11/13/19 00:00 bees/wasps Allergy Unknown Uncoded 11/13/19 00:00 ivp contrast dye Allergy Unknown Uncoded 11/13/19 00:00 lychees Allergy Unknown Uncoded 11/13/19 00:00 oranges Allergy Unknown Uncoded 11/13/19 00:00 red dyes Allergy Unknown Uncoded 11/13/19 00:00 Plan Patient has been examined and remains a candidate for the planned procedure
--- NOTE | 2020-08-22 07:08 | HO.ECTPROC ---
ECT Procedure Note Diagnosis/Treatment Diagnosis: Bipolar disorder Previous ECT Date: 08/20/20 Current Treatment Number: 6 Treatment: Series Interval Clinical Notes: improving mood. No SE ECT Settings Device: THYMATRON DGx Electrode Placement: Right Unilateral Program/Pulse Width: 0.25 Energy Percent: 30 Seizure Duration By EEG (in seconds): 69 By Motor Observation (in seconds): 50 Medications Administration General Anesthetic: Etomidate (16) Muscle Relaxant: Succinylcholine (100) Ancillary Medications Analgesics: Torodol - Pre ECT (15), Acetaminophen (650 mg post) and Narcotics (oxycodone 5 mg post) Anti-emetics: Zofran - Pre ECT (4) Miscillaneous Medications: Propofol (30) Airway Management Airway Management: Bag Mask Ventilation Treatment Recommendations Electrode Placement: Right Unilateral Program/Pulse Width: 0.25 Energy Percent: 20 Notes: Reduce to 20% Pt Tolerated Procedure w/o Issue: Yes
[2020-08-22] MEDS: ondansetron HCL 4 MG/2 ML VIAL IVPUSH (07:59)
[2020-08-22] MEDS: oxyCODONE HCl Immed Release 5 MG TABLET PO (08:03)
[2020-08-22] MEDS: Acetaminophen 325 MG TABLET 650 MG PO (08:04)
== END 2020-08-22 08:50 | disposition home or self-care (01) ==
PROVIDERS: PCP Internal Medicine; Visit Provider Psychiatry & Neurology Psychiatry
PROC: (CPT 90870; principal; 2020-08-22 07:30)
DX: F32.9 Major depressive disorder, single episode, unspecified (principal); J45.909 Unspecified asthma, uncomplicated; Z79.51 Long term (current) use of inhaled steroids; Z79.899 Other long term (current) drug therapy; Z91.041 Radiographic dye allergy status; Z91.09 Other allergy status, other than to drugs and biological substances
CPT/HCPCS: 90870; J0330; J1885; J2405

== ENCOUNTER 2020-08-27 07:46 | Day surgery (SDC) | payer OTHER, SELFPAY ==
[2020-08-27 07:58] VITALS: BP 127/80; PULSE 86; RESP 18; TEMP 36.3; O2SAT 100; BMI 19.6
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
--- NOTE | 2020-08-27 08:18 | HO.ECTPROC ---
ECT Procedure Note Diagnosis/Treatment Diagnosis: Bipolar disorder Previous ECT Date: 08/22/20 Current Treatment Number: 7 Treatment: Series Interval Clinical Notes: PT DEPRESSED ANXIOUS RECENT OF THERAPY PET ECT Settings Device: THYMATRON DGx Electrode Placement: Right Unilateral Program/Pulse Width: 0.25 Energy Percent: 30 Seizure Duration By EEG (in seconds): 38 Medications Administration General Anesthetic: Etomidate (16) Ancillary Medications Analgesics: Torodol - Pre ECT (15), Acetaminophen (650) and Narcotics (OXYCODONE 10 MG) Anti-emetics: Zofran - Pre ECT (4 MG) Miscillaneous Medications: Propofol (30 MG), Midazolam (2MG) and Flumazenil (0.5) Airway Management Airway Management: Bag Mask Ventilation Treatment Recommendations No Changes Recommended: No change Notes: CONTINUE TX SERIES WEEKLY FOR NOW Pt Tolerated Procedure w/o Issue: Yes
--- NOTE | 2020-08-27 08:19 | HO.ANESPROP2 ---
FORMERLY [facility] Past Medical History Medical History Anxiety Bipolar 1 disorder Depression History of electroconvulsive therapy Vasovagal episode Social History Social History Smoking Status: Never smoker Second Hand Smoke Exposure: No Use of substances other than those prescribed or required for medical reasons: No Advance Directives: No Advance Directives Information Provided: Yes Advance Directives on File: No Meds Allergies Allergy/AdvReac Type Severity Reaction Status Date / Time adhesive tape [ADHESIVE TAPE] Allergy Unknown unknown Unverified 07/31/20 17:22 bee pollen [BEE STINGS] Allergy Unknown anaphylaxis Unverified 07/31/20 17:22 Iodinated Contrast Media Allergy Unknown unknown Unverified 07/31/20 17:22 [CONTRAST, IV] metaxalone [From SKELAXIN] Allergy Unknown unknown Unverified 07/31/20 17:22 monocryl/vicryl sutures Allergy Unknown unknown Unverified 07/31/20 17:22 morphine [MORPHINE] Allergy Unknown unknown Unverified 07/31/20 17:22 moxifloxacin [From AVELOX] Allergy Unknown unknown Unverified 07/31/20 17:22 orange [ORANGES] Allergy Unknown anaphylaxis Unverified 07/31/20 17:22 red dye [RED DYE] Allergy Unknown unknown Unverified 07/31/20 17:22 Sulfa (Sulfonamide Allergy Unknown UNKNOWN Unverified 07/31/20 17:22 Antibiotics) [SULFA (SULFONAMIDE ANTIBIOTICS)] lamotrigine [From LAMICTAL] AdvReac Intermediate hx of Unverified 07/31/20 17:22 yennifer on doses greater that 200 mg Adhesive Bandages Allergy Unknown Uncoded 11/13/19 00:00 bees/wasps Allergy Unknown Uncoded 11/13/19 00:00 ivp contrast dye Allergy Unknown Uncoded 11/13/19 00:00 lychees Allergy Unknown Uncoded 11/13/19 00:00 oranges Allergy Unknown Uncoded 11/13/19 00:00 red dyes Allergy Unknown Uncoded 11/13/19 00:00 Home Medications Medication Instructions Recorded Confirmed Type Vraylar 6 mg PO DAILY 08/12/20 08/12/20 History albuterol mcg INHALATION 08/12/20 History cetirizine [Zyrtec] 10 mg PO DAILY 08/12/20 08/12/20 History clonazepam 1 mg PO DAILY 08/12/20 08/12/20 History clozapine [Clozaril] 50 mg PO BID 08/12/20 08/12/20 History dexmethylphenidate 10 mg PO BID 08/12/20 08/12/20 History diphenhydramine HCl [Banophen] 50 mg PO TID PRN 08/12/20 08/12/20 History epinephrine 0.1 mg IM Q30M PRN 08/12/20 08/12/20 History famotidine 40 mg PO BEDTIME 08/12/20 08/12/20 History fluticasone propion-salmeterol 1 inh INHALATION BID 08/12/20 08/12/20 History [Advair Diskus] fluticasone propionate 1 spray INTRANASAL BID 08/12/20 08/12/20 History ipratropium-albuterol 3 ml INHALATION QID 08/12/20 08/12/20 History levonorgestrel-ethinyl estrad 1 tab PO DAILY 08/12/20 08/12/20 History metoprolol tartrate 25 mg PO BID 08/12/20 08/12/20 History prazosin 5 mg PO TID 08/12/20 08/12/20 History temazepam 30 mg PO BEDTIME PRN 08/12/20 08/12/20 History topiramate 50 mg PO BID 08/12/20 08/12/20 History zolpidem 10 mg PO BEDTIME PRN 08/12/20 08/12/20 History Exam Exam Date and Time: August 27, 2020818 Height,Weight and Vital Signs: Height 5 ft 9 in Weight 60.328 kg Last Vital Signs Temp 97.4 F 08/27/20 07:58 Pulse 86 08/27/20 07:58 Resp 18 08/27/20 07:58 BP 127/80 08/27/20 07:58 Pulse Ox 100 08/27/20 07:58 Airway Mallampati Class: II TM Dist: >3cm Neck ROM: Full Assessment and Plan Assessment Anesthesia Assessment: Anesthesia Plan Discussed and Chart Reviewed Final Anesthetic Review ASA Class: II Final Preanesthetic Review: No Changes in Pt Med Stat, Meds/Allgs Chart Reviewed, Consent Obtained/Reviewed and Anes Risks/Benef Reviewed Patient Risk: Low Procedure Risk: Low Assessment/Block/Sedation in SS: Assess/Block/Sedation-SS Anesthetic Plan Anesthetic Plan: GA Disposition: Standard PACU
[2020-08-27 08:44] VITALS: BP 124/80; PULSE 62; RESP 16; TEMP 36.9; O2SAT 99
[2020-08-27 08:50] VITALS: BP 110/65; PULSE 55; RESP 16; O2SAT 99
[2020-08-27 08:55] VITALS: BP 107/56; PULSE 56; RESP 16; O2SAT 99
[2020-08-27 09:00] VITALS: BP 120/77; PULSE 57; RESP 16; O2SAT 99
[2020-08-27] MEDS: Acetaminophen 325 MG TABLET 650 MG PO (09:10)
[2020-08-27] MEDS: oxyCODONE HCl Immed Release 5 MG TABLET 10 MG PO (09:11)
[2020-08-27 09:14] VITALS: BP 123/80; PULSE 76; RESP 16; TEMP 36.9; O2SAT 100
--- NOTE | 2020-08-27 12:19 | HO.ECTPROC ---
ECT Procedure Note Diagnosis/Treatment Diagnosis: Bipolar disorder Previous ECT Date: 08/22/20 Current Treatment Number: 7 Treatment: Series Interval Clinical Notes: PT DEPRESSED ANXIOUS RECENT OF THERAPY PET ECT Settings Device: THYMATRON DGx Electrode Placement: Right Unilateral Program/Pulse Width: 0.25 Energy Percent: 25 Seizure Duration By EEG (in seconds): 38 Medications Administration General Anesthetic: Etomidate (16) Muscle Relaxant: Succinylcholine (100 MG) Ancillary Medications Analgesics: Torodol - Pre ECT (15 MG) Anti-emetics: Zofran - Pre ECT (4 MG) Miscillaneous Medications: Propofol (30 MG POST ), Midazolam (2 MG POST) and Flumazenil (0.5) Airway Management Airway Management: Bag Mask Ventilation Treatment Recommendations No Changes Recommended: No change Notes: CONTINUE TX PT LESS DEPRESSED LESS AGITATED Pt Tolerated Procedure w/o Issue: Yes
== END 2020-08-27 09:25 | disposition home or self-care (01) ==
PROVIDERS: PCP Internal Medicine; Visit Provider Psychiatry & Neurology Psychiatry
PROC: (CPT 90870; principal; 2020-08-27 15:00)
DX: F33.2 Major depressive disorder, recurrent severe without psychotic features (principal); J45.909 Unspecified asthma, uncomplicated; Z79.899 Other long term (current) drug therapy
CPT/HCPCS: 90870; J0330; J1885; J2250; J2405

== ENCOUNTER 2020-08-29 08:02 | Day surgery (SDC) | payer OTHER, SELFPAY ==
[2020-08-29] VITALS (7 sets, daily range): BP systolic 108–131; BP diastolic 58–82; PULSE 91–118; RESP 18–23; TEMP 36.6–37.1; O2SAT 99–100
--- NOTE | 2020-08-29 06:42 | HO.ECTPROC ---
ECT Procedure Note Diagnosis/Treatment Previous ECT Date: 08/27/20 Current Treatment Number: 8 Treatment: Series Interval Clinical Notes: Imoroving mood ECT Settings Device: THYMATRON DGx Electrode Placement: Right Unilateral Program/Pulse Width: 0.25 Energy Percent: 25 Seizure Duration By EEG (in seconds): 65 By Motor Observation (in seconds): 45 Medications Administration General Anesthetic: Etomidate (16) Muscle Relaxant: Succinylcholine (100) Ancillary Medications Analgesics: Torodol - Pre ECT (15), Torodol - Post ECT, Acetaminophen (post 650 mg ) and Narcotics (post. Oxycodone 10 mg) Anti-emetics: Zofran - Pre ECT (4 mg) Miscillaneous Medications: Flumazenil (0.5 mg) Airway Management Airway Management: Bag Mask Ventilation Treatment Recommendations No Changes Recommended: No change Notes: Please Metoprolol 50 mg at 0530 am on ECT days Pt Tolerated Procedure w/o Issue: Yes
--- NOTE | 2020-08-29 06:42 | MHC.SHP ---
Pre-Procedural Eval Section A The patient is an INPATIENT: No The History & Physical has been completed within 30 days and I have reviewed it.: Yes Section B Chief Complaint: depression Allergies: Allergies Allergy/AdvReac Type Severity Reaction Status Date / Time adhesive tape [ADHESIVE TAPE] Allergy Unknown unknown Unverified 07/31/20 17:22 bee pollen [BEE STINGS] Allergy Unknown anaphylaxis Unverified 07/31/20 17:22 Iodinated Contrast Media Allergy Unknown unknown Unverified 07/31/20 17:22 [CONTRAST, IV] metaxalone [From SKELAXIN] Allergy Unknown unknown Unverified 07/31/20 17:22 monocryl/vicryl sutures Allergy Unknown unknown Unverified 07/31/20 17:22 morphine [MORPHINE] Allergy Unknown unknown Unverified 07/31/20 17:22 moxifloxacin [From AVELOX] Allergy Unknown unknown Unverified 07/31/20 17:22 orange [ORANGES] Allergy Unknown anaphylaxis Unverified 07/31/20 17:22 red dye [RED DYE] Allergy Unknown unknown Unverified 07/31/20 17:22 Sulfa (Sulfonamide Allergy Unknown UNKNOWN Unverified 07/31/20 17:22 Antibiotics) [SULFA (SULFONAMIDE ANTIBIOTICS)] lamotrigine [From LAMICTAL] AdvReac Intermediate hx of Unverified 07/31/20 17:22 yennifer on doses greater that 200 mg Adhesive Bandages Allergy Unknown Uncoded 11/13/19 00:00 bees/wasps Allergy Unknown Uncoded 11/13/19 00:00 ivp contrast dye Allergy Unknown Uncoded 11/13/19 00:00 lychees Allergy Unknown Uncoded 11/13/19 00:00 oranges Allergy Unknown Uncoded 11/13/19 00:00 red dyes Allergy Unknown Uncoded 11/13/19 00:00 Plan Diagnosis/Plan: Unchanged (Ct ECt. Switch to M-ECT) Patient has been examined and remains a candidate for the planned procedure
[2020-08-29] MEDS: Lactated Ringers 1,000 ML 50 ML IVCONT (08:40)
--- NOTE | 2020-08-29 08:52 | HO.ANESPROP2 ---
HPI - Anesthesia Eval Consult details Narrative: Major Depression. For ECT PMFSH Past Medical History Medical History Anxiety Bipolar 1 disorder Depression History of electroconvulsive therapy Vasovagal episode Social History Social History Smoking Status: Never smoker Second Hand Smoke Exposure: No Use of substances other than those prescribed or required for medical reasons: No Have you been hit, kicked, punched, or otherwise hurt by someone within the past year? If so, by whom?: No Advance Directives: No Advance Directives Information Provided: Yes Recently lost weight without trying: No Meds Allergies Allergy/AdvReac Type Severity Reaction Status Date / Time adhesive tape [ADHESIVE TAPE] Allergy Unknown unknown Unverified 07/31/20 17:22 bee pollen [BEE STINGS] Allergy Unknown anaphylaxis Unverified 07/31/20 17:22 Iodinated Contrast Media Allergy Unknown unknown Unverified 07/31/20 17:22 [CONTRAST, IV] metaxalone [From SKELAXIN] Allergy Unknown unknown Unverified 07/31/20 17:22 monocryl/vicryl sutures Allergy Unknown unknown Unverified 07/31/20 17:22 morphine [MORPHINE] Allergy Unknown unknown Unverified 07/31/20 17:22 moxifloxacin [From AVELOX] Allergy Unknown unknown Unverified 07/31/20 17:22 orange [ORANGES] Allergy Unknown anaphylaxis Unverified 07/31/20 17:22 red dye [RED DYE] Allergy Unknown unknown Unverified 07/31/20 17:22 Sulfa (Sulfonamide Allergy Unknown UNKNOWN Unverified 07/31/20 17:22 Antibiotics) [SULFA (SULFONAMIDE ANTIBIOTICS)] lamotrigine [From LAMICTAL] AdvReac Intermediate hx of Unverified 07/31/20 17:22 yennifer on doses greater that 200 mg Adhesive Bandages Allergy Unknown Uncoded 11/13/19 00:00 bees/wasps Allergy Unknown Uncoded 11/13/19 00:00 ivp contrast dye Allergy Unknown Uncoded 11/13/19 00:00 lychees Allergy Unknown Uncoded 11/13/19 00:00 oranges Allergy Unknown Uncoded 11/13/19 00:00 red dyes Allergy Unknown Uncoded 11/13/19 00:00 Home Medications Medication Instructions Recorded Confirmed Type Vraylar 6 mg PO DAILY 08/12/20 08/12/20 History albuterol mcg INHALATION 08/12/20 History cetirizine [Zyrtec] 10 mg PO DAILY 08/12/20 08/12/20 History clonazepam 1 mg PO DAILY 08/12/20 08/12/20 History clozapine [Clozaril] 50 mg PO BID 08/12/20 08/12/20 History dexmethylphenidate 10 mg PO BID 08/12/20 08/12/20 History diphenhydramine HCl [Banophen] 50 mg PO TID PRN 08/12/20 08/12/20 History epinephrine 0.1 mg IM Q30M PRN 08/12/20 08/12/20 History famotidine 40 mg PO BEDTIME 08/12/20 08/12/20 History fluticasone propion-salmeterol 1 inh INHALATION BID 08/12/20 08/12/20 History [Advair Diskus] fluticasone propionate 1 spray INTRANASAL BID 08/12/20 08/12/20 History ipratropium-albuterol 3 ml INHALATION QID 08/12/20 08/12/20 History levonorgestrel-ethinyl estrad 1 tab PO DAILY 08/12/20 08/12/20 History metoprolol tartrate 25 mg PO BID 08/12/20 08/12/20 History prazosin 5 mg PO TID 08/12/20 08/12/20 History temazepam 30 mg PO BEDTIME PRN 08/12/20 08/12/20 History topiramate 50 mg PO BID 08/12/20 08/12/20 History zolpidem 10 mg PO BEDTIME PRN 08/12/20 08/12/20 History Exam Exam Date and Time: August 29, 2020 0852 Height,Weight and Vital Signs: Height 5 ft 9 in Weight 61.518 kg Last Vital Signs Temp 97.8 F 08/29/20 08:40 Pulse 118 H 08/29/20 08:40 Resp 20 08/29/20 08:40 BP 131/81 08/29/20 08:40 Pulse Ox 99 08/29/20 08:40 Airway Mallampati Class: II TM Dist: >3cm Neck ROM: Full Loose/Missing/Broken Teeth: No Heart: RRR Lungs: CTAB Assessment and Plan Assessment Anesthesia Assessment: Anesthesia Plan Discussed and Chart Reviewed Final Anesthetic Review NPO: Yes ASA Class: II Final Preanesthetic Review: No Changes in Pt Med Stat, Meds/Allgs Chart Reviewed, Consent Obtained/Reviewed and Anes Risks/Benef Reviewed Patient Risk: Low Procedure Risk: Intermediate Anesthetic Plan Anesthetic Plan: GA Disposition: Standard PACU
[2020-08-29] MEDS: oxyCODONE HCl Immed Release 5 MG TABLET 10 MG PO (09:45)
[2020-08-29] MEDS: Acetaminophen 325 MG TABLET 650 MG PO (09:45)
[2020-08-29] MEDS: ondansetron HCL 4 MG/2 ML VIAL IVPUSH (09:49)
--- NOTE | 2020-08-29 11:19 | HO.POSTANES ---
Post Anesthesia Evaluation Post Anesthesia Evaluation Vital Signs: Vital Signs Temp Pulse Resp BP Pulse Ox 08/29/20 10:00 98.7 F 102 H 18 112/67 99 08/29/20 09:45 102 H 18 119/80 100 08/29/20 09:30 118 H 20 127/80 99 08/29/20 09:25 116 H 18 126/82 99 08/29/20 09:20 91 20 108/58 L 99 08/29/20 09:15 98.8 F 93 23 H 118/67 99 08/29/20 08:40 97.8 F 118 H 20 131/81 99 Anesthesia: General Mental Status: Awake Pain Control: Satisfactory Nausea/Vomiting: None Hydration: Adequate Anesthesia-Related Issues: No Anes. Related Issues
== END 2020-08-29 10:25 | disposition home or self-care (01) ==
PROVIDERS: PCP Internal Medicine; Visit Provider Psychiatry & Neurology Psychiatry
PROC: (CPT 90870; principal; 2020-08-29 09:30)
DX: F31.9 Bipolar disorder, unspecified (principal); Z79.51 Long term (current) use of inhaled steroids; Z79.899 Other long term (current) drug therapy; Z88.2 Allergy status to sulfonamides; Z91.030 Bee allergy status; Z91.041 Radiographic dye allergy status; Z91.040 Latex allergy status; Z88.1 Allergy status to other antibiotic agents
CPT/HCPCS: 90870; J2250; J2405

== ENCOUNTER 2020-09-08 06:07 | Day surgery (SDC) | payer OTHER, SELFPAY ==
[2020-09-08] VITALS (7 sets, daily range): BP systolic 107–126; BP diastolic 46–72; PULSE 72–93; RESP 16–20; TEMP 36.2–37.2; O2SAT 98–100; BMI 20.3
--- NOTE | 2020-09-08 07:07 | HO.ANESPROP2 ---
[facility], [facility] Past Medical History Medical History Anxiety Bipolar 1 disorder Depression History of electroconvulsive therapy Vasovagal episode Social History Social History Smoking Status: Never smoker Second Hand Smoke Exposure: No Use of substances other than those prescribed or required for medical reasons: No Advance Directives on File: No Meds Allergies Allergy/AdvReac Type Severity Reaction Status Date / Time adhesive tape [ADHESIVE TAPE] Allergy Unknown unknown Verified 08/29/20 09:36 bee pollen [BEE STINGS] Allergy Unknown anaphylaxis Verified 08/29/20 09:36 Iodinated Contrast Media Allergy Unknown unknown Verified 08/29/20 09:36 [CONTRAST, IV] metaxalone [From SKELAXIN] Allergy Unknown unknown Verified 08/29/20 09:36 monocryl/vicryl sutures Allergy Unknown unknown Verified 08/29/20 09:36 morphine [MORPHINE] Allergy Unknown unknown Verified 08/29/20 09:36 moxifloxacin [From AVELOX] Allergy Unknown unknown Verified 08/29/20 09:36 orange [ORANGES] Allergy Unknown anaphylaxis Verified 08/29/20 09:36 red dye [RED DYE] Allergy Unknown unknown Verified 08/29/20 09:36 Sulfa (Sulfonamide Allergy Unknown UNKNOWN Verified 08/29/20 09:36 Antibiotics) [SULFA (SULFONAMIDE ANTIBIOTICS)] lamotrigine [From LAMICTAL] AdvReac Intermediate hx of Verified 08/29/20 09:36 yennifer on doses greater that 200 mg Adhesive Bandages Allergy Unknown Hives Uncoded 08/29/20 09:36 bees/wasps Allergy Unknown Anaphylaxis Uncoded 08/29/20 09:36 ivp contrast dye Allergy Unknown Hives Uncoded 08/29/20 09:36 lychees Allergy Unknown Hives Uncoded 08/29/20 09:36 oranges Allergy Unknown Anaphylaxis Uncoded 08/29/20 09:36 red dyes Allergy Unknown Hives Uncoded 08/29/20 09:36 Home Medications Medication Instructions Recorded Confirmed Type Vraylar 6 mg PO DAILY 08/12/20 08/12/20 History albuterol mcg INHALATION 08/12/20 History cetirizine [Zyrtec] 10 mg PO DAILY 08/12/20 08/12/20 History clonazepam 1 mg PO DAILY 08/12/20 08/12/20 History clozapine [Clozaril] 50 mg PO BID 08/12/20 08/12/20 History dexmethylphenidate 10 mg PO BID 08/12/20 08/12/20 History diphenhydramine HCl [Banophen] 50 mg PO TID PRN 08/12/20 08/12/20 History epinephrine 0.1 mg IM Q30M PRN 08/12/20 08/12/20 History famotidine 40 mg PO BEDTIME 08/12/20 08/12/20 History fluticasone propion-salmeterol 1 inh INHALATION BID 08/12/20 08/12/20 History [Advair Diskus] fluticasone propionate 1 spray INTRANASAL BID 08/12/20 08/12/20 History ipratropium-albuterol 3 ml INHALATION QID 08/12/20 08/12/20 History levonorgestrel-ethinyl estrad 1 tab PO DAILY 08/12/20 08/12/20 History metoprolol tartrate 25 mg PO BID 08/12/20 08/12/20 History prazosin 5 mg PO TID 08/12/20 08/12/20 History temazepam 30 mg PO BEDTIME PRN 08/12/20 08/12/20 History topiramate 50 mg PO BID 08/12/20 08/12/20 History zolpidem 10 mg PO BEDTIME PRN 08/12/20 08/12/20 History Exam Exam Date and Time: September 08, 2020 0707 Height,Weight and Vital Signs: Height 5 ft 8 in Weight 60.781 kg Last Vital Signs Temp 97.2 F 09/08/20 06:26 Pulse 80 09/08/20 06:26 Resp 16 09/08/20 06:26 BP 107/60 09/08/20 06:26 Pulse Ox 98 09/08/20 06:26 Airway Mallampati Class: II TM Dist: >3cm Neck ROM: Full Heart: RRR Lungs: CTA BL
--- NOTE | 2020-09-08 07:08 | HO.ANESPROP2 ---
[facility] Past Medical History Medical History Anxiety Bipolar 1 disorder Depression History of electroconvulsive therapy Vasovagal episode Social History Social History Smoking Status: Never smoker Second Hand Smoke Exposure: No Use of substances other than those prescribed or required for medical reasons: No Advance Directives on File: No Meds Allergies Allergy/AdvReac Type Severity Reaction Status Date / Time adhesive tape [ADHESIVE TAPE] Allergy Unknown unknown Verified 08/29/20 09:36 bee pollen [BEE STINGS] Allergy Unknown anaphylaxis Verified 08/29/20 09:36 Iodinated Contrast Media Allergy Unknown unknown Verified 08/29/20 09:36 [CONTRAST, IV] metaxalone [From SKELAXIN] Allergy Unknown unknown Verified 08/29/20 09:36 monocryl/vicryl sutures Allergy Unknown unknown Verified 08/29/20 09:36 morphine [MORPHINE] Allergy Unknown unknown Verified 08/29/20 09:36 moxifloxacin [From AVELOX] Allergy Unknown unknown Verified 08/29/20 09:36 orange [ORANGES] Allergy Unknown anaphylaxis Verified 08/29/20 09:36 red dye [RED DYE] Allergy Unknown unknown Verified 08/29/20 09:36 Sulfa (Sulfonamide Allergy Unknown UNKNOWN Verified 08/29/20 09:36 Antibiotics) [SULFA (SULFONAMIDE ANTIBIOTICS)] lamotrigine [From LAMICTAL] AdvReac Intermediate hx of Verified 08/29/20 09:36 yennifer on doses greater that 200 mg Adhesive Bandages Allergy Unknown Hives Uncoded 08/29/20 09:36 bees/wasps Allergy Unknown Anaphylaxis Uncoded 08/29/20 09:36 ivp contrast dye Allergy Unknown Hives Uncoded 08/29/20 09:36 lychees Allergy Unknown Hives Uncoded 08/29/20 09:36 oranges Allergy Unknown Anaphylaxis Uncoded 08/29/20 09:36 red dyes Allergy Unknown Hives Uncoded 08/29/20 09:36 Home Medications Medication Instructions Recorded Confirmed Type Vraylar 6 mg PO DAILY 08/12/20 08/12/20 History albuterol mcg INHALATION 08/12/20 History cetirizine [Zyrtec] 10 mg PO DAILY 08/12/20 08/12/20 History clonazepam 1 mg PO DAILY 08/12/20 08/12/20 History clozapine [Clozaril] 50 mg PO BID 08/12/20 08/12/20 History dexmethylphenidate 10 mg PO BID 08/12/20 08/12/20 History diphenhydramine HCl [Banophen] 50 mg PO TID PRN 08/12/20 08/12/20 History epinephrine 0.1 mg IM Q30M PRN 08/12/20 08/12/20 History famotidine 40 mg PO BEDTIME 08/12/20 08/12/20 History fluticasone propion-salmeterol 1 inh INHALATION BID 08/12/20 08/12/20 History [Advair Diskus] fluticasone propionate 1 spray INTRANASAL BID 08/12/20 08/12/20 History ipratropium-albuterol 3 ml INHALATION QID 08/12/20 08/12/20 History levonorgestrel-ethinyl estrad 1 tab PO DAILY 08/12/20 08/12/20 History metoprolol tartrate 25 mg PO BID 08/12/20 08/12/20 History prazosin 5 mg PO TID 08/12/20 08/12/20 History temazepam 30 mg PO BEDTIME PRN 08/12/20 08/12/20 History topiramate 50 mg PO BID 08/12/20 08/12/20 History zolpidem 10 mg PO BEDTIME PRN 08/12/20 08/12/20 History Exam Exam Date and Time: September 08, 2020 0708 Height,Weight and Vital Signs: Height 5 ft 8 in Weight 60.781 kg Last Vital Signs Temp 97.2 F 09/08/20 06:26 Pulse 80 09/08/20 06:26 Resp 16 09/08/20 06:26 BP 107/60 09/08/20 06:26 Pulse Ox 98 09/08/20 06:26 Assessment and Plan Assessment Anesthesia Assessment: Anesthesia Plan Discussed and Chart Reviewed Final Anesthetic Review NPO: Yes ASA Class: II Final Preanesthetic Review: No Changes in Pt Med Stat, Meds/Allgs Chart Reviewed and Consent Obtained/Reviewed Patient Risk: Low Procedure Risk: Low Anesthetic Plan Anesthetic Plan: GA Disposition: Standard PACU
--- NOTE | 2020-09-08 07:09 | HO.ECTPROC ---
ECT Procedure Note Diagnosis/Treatment Diagnosis: Bipolar disorder Previous ECT Date: 08/29/20 Current Treatment Number: 9 Treatment: Series Interval Clinical Notes: Stable mood but wants to do 2/week. Had to miss one ECT last week ECT Settings Device: THYMATRON DGx Electrode Placement: Right Unilateral Program/Pulse Width: 0.25 Energy Percent: 25 Seizure Duration By EEG (in seconds): 45 By Motor Observation (in seconds): 42 Medications Administration General Anesthetic: Etomidate (16) Muscle Relaxant: Succinylcholine (100) Ancillary Medications Analgesics: Torodol - Pre ECT (15), Acetaminophen (650 mg post) and Narcotics (oxycodone 10 mg post ect) Anti-emetics: Zofran - Pre ECT (4) Miscillaneous Medications: Propofol (30) and Flumazenil (0.5 mg pre) Airway Management Airway Management: Bag Mask Ventilation Treatment Recommendations No Changes Recommended: No change Electrode Placement: Right Unilateral Program/Pulse Width: 0.25 Energy Percent: 25 Pt Tolerated Procedure w/o Issue: Yes
--- NOTE | 2020-09-08 07:09 | MHC.SHP ---
Pre-Procedural Eval Section A The patient is an INPATIENT: No Changes since office visit: No Cold of Flu in the past 2 weeks, No New Medical Problems, No Changes in Medication and No Patient answered all questions The History & Physical has been completed within 30 days and I have reviewed it.: Yes Section B Chief Complaint: Severe Depression Allergies: Allergies Allergy/AdvReac Type Severity Reaction Status Date / Time adhesive tape [ADHESIVE TAPE] Allergy Unknown unknown Verified 08/29/20 09:36 bee pollen [BEE STINGS] Allergy Unknown anaphylaxis Verified 08/29/20 09:36 Iodinated Contrast Media Allergy Unknown unknown Verified 08/29/20 09:36 [CONTRAST, IV] metaxalone [From SKELAXIN] Allergy Unknown unknown Verified 08/29/20 09:36 monocryl/vicryl sutures Allergy Unknown unknown Verified 08/29/20 09:36 morphine [MORPHINE] Allergy Unknown unknown Verified 08/29/20 09:36 moxifloxacin [From AVELOX] Allergy Unknown unknown Verified 08/29/20 09:36 orange [ORANGES] Allergy Unknown anaphylaxis Verified 08/29/20 09:36 red dye [RED DYE] Allergy Unknown unknown Verified 08/29/20 09:36 Sulfa (Sulfonamide Allergy Unknown UNKNOWN Verified 08/29/20 09:36 Antibiotics) [SULFA (SULFONAMIDE ANTIBIOTICS)] lamotrigine [From LAMICTAL] AdvReac Intermediate hx of Verified 08/29/20 09:36 yennifer on doses greater that 200 mg Adhesive Bandages Allergy Unknown Hives Uncoded 08/29/20 09:36 bees/wasps Allergy Unknown Anaphylaxis Uncoded 08/29/20 09:36 ivp contrast dye Allergy Unknown Hives Uncoded 08/29/20 09:36 lychees Allergy Unknown Hives Uncoded 08/29/20 09:36 oranges Allergy Unknown Anaphylaxis Uncoded 08/29/20 09:36 red dyes Allergy Unknown Hives Uncoded 08/29/20 09:36 Plan Diagnosis/Plan: Unchanged Patient has been examined and remains a candidate for the planned procedure
[2020-09-08] MEDS: Lactated Ringers 1,000 ML 50 ML IVCONT (07:15)
[2020-09-08] MEDS: Acetaminophen 325 MG TABLET 650 MG PO (08:10)
[2020-09-08] MEDS: oxyCODONE HCl Immed Release 5 MG TABLET PO ×2 (08:10→08:36)
[2020-09-08] MEDS: ondansetron HCL 4 MG/2 ML VIAL IVPUSH (08:13)
== END 2020-09-08 08:54 | disposition home or self-care (01) ==
PROVIDERS: PCP Internal Medicine; Visit Provider Psychiatry & Neurology Psychiatry
PROC: (CPT 90870; principal; 2020-09-08 15:00)
DX: F31.9 Bipolar disorder, unspecified (principal); Z79.899 Other long term (current) drug therapy; Z91.040 Latex allergy status; Z79.51 Long term (current) use of inhaled steroids; Z88.2 Allergy status to sulfonamides; Z88.8 Allergy status to other drugs, medicaments and biological substances
CPT/HCPCS: 90870; J0330; J1885; J2405

== ENCOUNTER 2020-09-12 06:04 | Day surgery (SDC) | payer OTHER, SELFPAY ==
[2020-09-12 06:18] VITALS: BMI 19.9
[2020-09-12 06:27] VITALS: BP 104/64; PULSE 79; RESP 17; TEMP 36.3; O2SAT 100
--- NOTE | 2020-09-12 06:54 | MHC.SHP ---
Pre-Procedural Eval Section A The patient is an INPATIENT: No Changes since office visit: No Cold of Flu in the past 2 weeks, No New Medical Problems, No Changes in Medication and No Patient answered all questions The History & Physical has been completed within 30 days and I have reviewed it.: Yes Section B Chief Complaint: Severe Depression Allergies: Allergies Allergy/AdvReac Type Severity Reaction Status Date / Time adhesive tape [ADHESIVE TAPE] Allergy Unknown unknown Verified 08/29/20 09:36 bee pollen [BEE STINGS] Allergy Unknown anaphylaxis Verified 08/29/20 09:36 Iodinated Contrast Media Allergy Unknown unknown Verified 08/29/20 09:36 [CONTRAST, IV] metaxalone [From SKELAXIN] Allergy Unknown unknown Verified 08/29/20 09:36 monocryl/vicryl sutures Allergy Unknown unknown Verified 08/29/20 09:36 morphine [MORPHINE] Allergy Unknown unknown Verified 08/29/20 09:36 moxifloxacin [From AVELOX] Allergy Unknown unknown Verified 08/29/20 09:36 orange [ORANGES] Allergy Unknown anaphylaxis Verified 08/29/20 09:36 red dye [RED DYE] Allergy Unknown unknown Verified 08/29/20 09:36 Sulfa (Sulfonamide Allergy Unknown UNKNOWN Verified 08/29/20 09:36 Antibiotics) [SULFA (SULFONAMIDE ANTIBIOTICS)] lamotrigine [From LAMICTAL] AdvReac Intermediate hx of Verified 08/29/20 09:36 yennifer on doses greater that 200 mg Adhesive Bandages Allergy Unknown Hives Uncoded 08/29/20 09:36 bees/wasps Allergy Unknown Anaphylaxis Uncoded 08/29/20 09:36 ivp contrast dye Allergy Unknown Hives Uncoded 08/29/20 09:36 lychees Allergy Unknown Hives Uncoded 08/29/20 09:36 oranges Allergy Unknown Anaphylaxis Uncoded 08/29/20 09:36 red dyes Allergy Unknown Hives Uncoded 08/29/20 09:36 Plan Patient has been examined and remains a candidate for the planned procedure
--- NOTE | 2020-09-12 06:55 | HO.ECTPROC ---
ECT Procedure Note Diagnosis/Treatment Diagnosis: Bipolar disorder Previous ECT Date: 09/08/20 Treatment: Maintenance (11/23) Interval Clinical Notes: improving ECT Settings Device: THYMATRON DGx Electrode Placement: Right Unilateral Program/Pulse Width: 0.25 Energy Percent: 25 Seizure Duration By EEG (in seconds): 47 By Motor Observation (in seconds): 38 Medications Administration General Anesthetic: Etomidate (16) Muscle Relaxant: Succinylcholine (100) Ancillary Medications Analgesics: Torodol - Pre ECT (15), Acetaminophen (650 mg post) and Narcotics (oxycodone 10 mg post) Anti-emetics: Zofran - Post ECT (4) Miscillaneous Medications: Propofol (30), Midazolam (2 mg bc of ? Flumazenil related anxiety) and Flumazenil (0.5 pre) Airway Management Airway Management: Bag Mask Ventilation Treatment Recommendations No Changes Recommended: No change Electrode Placement: Right Unilateral Program/Pulse Width: 0.25 Energy Percent: 25 Notes: Next ECT in a week 09/19/20 Pt Tolerated Procedure w/o Issue: Yes
--- NOTE | 2020-09-12 07:01 | P.HPSUR_ITS ---
Pre-Procedural Eval Section A The patient is an INPATIENT: No Changes since office visit: No Cold of Flu in the past 2 weeks, No New Medical Problems, No Changes in Medication and No Patient answered all questions Section B Chief Complaint: Severe Depression Details of Present Illness: Mood better. No physical complaints Relevant Family History (Specify if Yes): No Relevant Social History: None Present Medications: see Short Stay Collaborative assessment Medical History: No relevant PMH History of Previous Operations: Relevant previous surgery/procedure and date(s) (bunions/nasal septum) Allergies: Allergies Allergy/AdvReac Type Severity Reaction Status Date / Time adhesive tape [ADHESIVE TAPE] Allergy Unknown unknown Verified 08/29/20 09:36 bee pollen [BEE STINGS] Allergy Unknown anaphylaxis Verified 08/29/20 09:36 Iodinated Contrast Media Allergy Unknown unknown Verified 08/29/20 09:36 [CONTRAST, IV] metaxalone [From SKELAXIN] Allergy Unknown unknown Verified 08/29/20 09:36 monocryl/vicryl sutures Allergy Unknown unknown Verified 08/29/20 09:36 morphine [MORPHINE] Allergy Unknown unknown Verified 08/29/20 09:36 moxifloxacin [From AVELOX] Allergy Unknown unknown Verified 08/29/20 09:36 orange [ORANGES] Allergy Unknown anaphylaxis Verified 08/29/20 09:36 red dye [RED DYE] Allergy Unknown unknown Verified 08/29/20 09:36 Sulfa (Sulfonamide Allergy Unknown UNKNOWN Verified 08/29/20 09:36 Antibiotics) [SULFA (SULFONAMIDE ANTIBIOTICS)] lamotrigine [From LAMICTAL] AdvReac Intermediate hx of Verified 08/29/20 09:36 yennifer on doses greater that 200 mg Adhesive Bandages Allergy Unknown Hives Uncoded 08/29/20 09:36 bees/wasps Allergy Unknown Anaphylaxis Uncoded 08/29/20 09:36 ivp contrast dye Allergy Unknown Hives Uncoded 08/29/20 09:36 lychees Allergy Unknown Hives Uncoded 08/29/20 09:36 oranges Allergy Unknown Anaphylaxis Uncoded 08/29/20 09:36 red dyes Allergy Unknown Hives Uncoded 08/29/20 09:36 Review of Systems Sugical H&P ROS: Negative: Constitution, Cardiovascular, Respiratory, Ne urological, Hem-Onc, Allergic/Immunologic, Gastrointestinal, Genitourinary, Musculoskeletal, Integumentary, Endocrine and Eyes/Ears/Nose/Throat and Yes, Specify: Psychiatric (anxiety) Exam Surgical H&P Exam: Normal: HEENT, Normal: Heart, Normal: Lungs, Normal: Extremities, Normal: Abdomen, Normal: Skin and Normal: Neurological Plan Diagnosis/Plan: Unchanged Patient has been examined and remains a candidate for the planned procedure
[2020-09-12] MEDS: Lactated Ringers 1,000 ML 50 ML IVCONT (07:44)
--- NOTE | 2020-09-12 07:44 | HO.ANESPROP2 ---
[facility] Past Medical History Medical History (Updated 09/12/20 @ 07:42 by Tricia Mathias) Anxiety Bipolar 1 disorder Depression Deviated septum History of electroconvulsive therapy Vasovagal episode Surgical History Surgical History (Updated 09/12/20 @ 07:41 by Tricia Mathias) History of bunionectomy Social History Social History Smoking Status: Never smoker Second Hand Smoke Exposure: No Meds Allergies Allergy/AdvReac Type Severity Reaction Status Date / Time adhesive tape [ADHESIVE TAPE] Allergy Unknown unknown Verified 08/29/20 09:36 bee pollen [BEE STINGS] Allergy Unknown anaphylaxis Verified 08/29/20 09:36 Iodinated Contrast Media Allergy Unknown unknown Verified 08/29/20 09:36 [CONTRAST, IV] metaxalone [From SKELAXIN] Allergy Unknown unknown Verified 08/29/20 09:36 monocryl/vicryl sutures Allergy Unknown unknown Verified 08/29/20 09:36 morphine [MORPHINE] Allergy Unknown unknown Verified 08/29/20 09:36 moxifloxacin [From AVELOX] Allergy Unknown unknown Verified 08/29/20 09:36 orange [ORANGES] Allergy Unknown anaphylaxis Verified 08/29/20 09:36 red dye [RED DYE] Allergy Unknown unknown Verified 08/29/20 09:36 Sulfa (Sulfonamide Allergy Unknown UNKNOWN Verified 08/29/20 09:36 Antibiotics) [SULFA (SULFONAMIDE ANTIBIOTICS)] lamotrigine [From LAMICTAL] AdvReac Intermediate hx of Verified 08/29/20 09:36 yennifer on doses greater that 200 mg Adhesive Bandages Allergy Unknown Hives Uncoded 08/29/20 09:36 bees/wasps Allergy Unknown Anaphylaxis Uncoded 08/29/20 09:36 ivp contrast dye Allergy Unknown Hives Uncoded 08/29/20 09:36 lychees Allergy Unknown Hives Uncoded 08/29/20 09:36 oranges Allergy Unknown Anaphylaxis Uncoded 08/29/20 09:36 red dyes Allergy Unknown Hives Uncoded 08/29/20 09:36 Home Medications Medication Instructions Recorded Confirmed Type Vraylar 6 mg PO DAILY 08/12/20 08/12/20 History albuterol mcg INHALATION 08/12/20 History cetirizine [Zyrtec] 10 mg PO DAILY 08/12/20 08/12/20 History clonazepam 1 mg PO DAILY 08/12/20 08/12/20 History clozapine [Clozaril] 50 mg PO BID 08/12/20 08/12/20 History dexmethylphenidate 10 mg PO BID 08/12/20 08/12/20 History diphenhydramine HCl [Banophen] 50 mg PO TID PRN 08/12/20 08/12/20 History epinephrine 0.1 mg IM Q30M PRN 08/12/20 08/12/20 History famotidine 40 mg PO BEDTIME 08/12/20 08/12/20 History fluticasone propion-salmeterol 1 inh INHALATION BID 08/12/20 08/12/20 History [Advair Diskus] fluticasone propionate 1 spray INTRANASAL BID 08/12/20 08/12/20 History ipratropium-albuterol 3 ml INHALATION QID 08/12/20 08/12/20 History levonorgestrel-ethinyl estrad 1 tab PO DAILY 08/12/20 08/12/20 History metoprolol tartrate 25 mg PO BID 08/12/20 08/12/20 History prazosin 5 mg PO TID 08/12/20 08/12/20 History temazepam 30 mg PO BEDTIME PRN 08/12/20 08/12/20 History topiramate 50 mg PO BID 08/12/20 08/12/20 History zolpidem 10 mg PO BEDTIME PRN 08/12/20 08/12/20 History Exam Exam Date and Time: September 12, 2020 0744 Height,Weight and Vital Signs: Height 5 ft 9 in Weight 61.235 kg Last Vital Signs Temp 97.3 F 09/12/20 06:27 Pulse 79 09/12/20 06:27 Resp 17 09/12/20 06:27 BP 104/64 09/12/20 06:27 Pulse Ox 100 09/12/20 06:27 Airway Mallampati Class: II TM Dist: >3cm Neck ROM: Full Heart: RRR Lungs: CTAB Assessment and Plan Assessment Anesthesia Assessment: Anesthesia Plan Discussed and Chart Reviewed Final Anesthetic Review NPO: Yes ASA Class: II Final Preanesthetic Review: No Changes in Pt Med Stat, Meds/Allgs Chart Reviewed, Consent Obtained/Reviewed and Anes Risks/Benef Reviewed Patient Risk: Intermediate Procedure Risk: Intermediate Anesthetic Plan Disposition: Standard PACU
[2020-09-12 08:07] VITALS: BP 104/44; PULSE 54; RESP 12; TEMP 37.4; O2SAT 99
[2020-09-12 08:12] VITALS: BP 104/51; PULSE 88; RESP 16; O2SAT 99
[2020-09-12 08:17] VITALS: BP 98/67; PULSE 84; RESP 18; O2SAT 99
[2020-09-12 08:22] VITALS: PULSE 77; RESP 18; O2SAT 98
[2020-09-12] MEDS: Acetaminophen 325 MG TABLET 650 MG PO (08:33)
[2020-09-12] MEDS: oxyCODONE HCl Immed Release 5 MG TABLET 10 MG PO (08:34)
[2020-09-12 08:37] VITALS: BP 107/80; PULSE 71; RESP 18; TEMP 37.2; O2SAT 99
--- NOTE | 2020-09-12 08:49 | HO.POSTANES ---
Post Anesthesia Evaluation Post Anesthesia Evaluation Vital Signs: Vital Signs Temp Pulse Resp BP Pulse Ox 09/12/20 08:37 99.0 F 71 18 107/80 99 09/12/20 08:22 77 18 98 09/12/20 08:17 84 18 98/67 99 09/12/20 08:12 88 16 104/51 L 99 09/12/20 08:07 99.4 F 54 12 104/44 L 99 09/12/20 06:27 97.3 F 79 17 104/64 100 Anesthesia: General Mental Status: Awake Pain Control: Satisfactory Nausea/Vomiting: None Hydration: Adequate Anesthesia-Related Issues: No Anes. Related Issues
== END 2020-09-12 09:00 | disposition home or self-care (01) ==
PROVIDERS: PCP Internal Medicine; Visit Provider Psychiatry & Neurology Psychiatry
PROC: (CPT 90870; principal; 2020-09-12 08:00)
DX: F31.4 Bipolar disorder, current episode depressed, severe, without psychotic features (principal); Z79.51 Long term (current) use of inhaled steroids; Z79.899 Other long term (current) drug therapy; Z91.041 Radiographic dye allergy status; Z91.040 Latex allergy status; Z88.2 Allergy status to sulfonamides; Z91.018 Allergy to other foods
CPT/HCPCS: 90870; J2250

== ENCOUNTER 2020-09-24 06:15 | Day surgery (SDC) | payer OTHER, SELFPAY ==
[2020-09-24 06:20] VITALS: BP 125/73; PULSE 98; RESP 16; TEMP 36.7; O2SAT 97; BMI 20.5
--- NOTE | 2020-09-24 07:09 | MHC.SHP ---
Pre-Procedural Eval Section A The patient is an INPATIENT: No Changes since office visit: Yes Patient answered all questions; No Cold of Flu in the past 2 weeks, No New Medical Problems and No Changes in Medication The History & Physical has been completed within 30 days and I have reviewed it.: Yes Section B Chief Complaint: severe depression Allergies: Allergies Allergy/AdvReac Type Severity Reaction Status Date / Time adhesive tape [ADHESIVE TAPE] Allergy Unknown unknown Verified 09/24/20 06:18 bee pollen [BEE STINGS] Allergy Unknown anaphylaxis Verified 09/24/20 06:18 Iodinated Contrast Media Allergy Unknown unknown Verified 09/24/20 06:18 [CONTRAST, IV] metaxalone [From SKELAXIN] Allergy Unknown unknown Verified 09/24/20 06:18 monocryl/vicryl sutures Allergy Unknown unknown Verified 09/24/20 06:18 morphine [MORPHINE] Allergy Unknown unknown Verified 09/24/20 06:18 moxifloxacin [From AVELOX] Allergy Unknown unknown Verified 09/24/20 06:18 orange [ORANGES] Allergy Unknown anaphylaxis Verified 09/24/20 06:18 red dye [RED DYE] Allergy Unknown unknown Verified 09/24/20 06:18 Sulfa (Sulfonamide Allergy Unknown UNKNOWN Verified 09/24/20 06:18 Antibiotics) [SULFA (SULFONAMIDE ANTIBIOTICS)] lamotrigine [From LAMICTAL] AdvReac Intermediate hx of Verified 09/24/20 06:18 yennifer on doses greater that 200 mg Adhesive Bandages Allergy Unknown Hives Uncoded 09/24/20 06:18 bees/wasps Allergy Unknown Anaphylaxis Uncoded 09/24/20 06:18 ivp contrast dye Allergy Unknown Hives Uncoded 09/24/20 06:18 lychees Allergy Unknown Hives Uncoded 09/24/20 06:18 oranges Allergy Unknown Anaphylaxis Uncoded 09/24/20 06:18 red dyes Allergy Unknown Hives Uncoded 09/24/20 06:18 Plan Patient has been examined and remains a candidate for the planned procedure
--- NOTE | 2020-09-24 07:16 | P.CONAN_ITS ---
PENDING SALE TO [facility] Past Medical History Medical History Anxiety Bipolar 1 disorder Depression Deviated septum History of electroconvulsive therapy Vasovagal episode Surgical History Surgical History History of bunionectomy Social History Social History Smoking Status: Never smoker Second Hand Smoke Exposure: No Advance Directives: No Advance Directives Information Provided: No Meds Allergies Allergy/AdvReac Type Severity Reaction Status Date / Time adhesive tape [ADHESIVE TAPE] Allergy Unknown unknown Verified 09/24/20 06:18 bee pollen [BEE STINGS] Allergy Unknown anaphylaxis Verified 09/24/20 06:18 Iodinated Contrast Media Allergy Unknown unknown Verified 09/24/20 06:18 [CONTRAST, IV] metaxalone [From SKELAXIN] Allergy Unknown unknown Verified 09/24/20 06:18 monocryl/vicryl sutures Allergy Unknown unknown Verified 09/24/20 06:18 morphine [MORPHINE] Allergy Unknown unknown Verified 09/24/20 06:18 moxifloxacin [From AVELOX] Allergy Unknown unknown Verified 09/24/20 06:18 orange [ORANGES] Allergy Unknown anaphylaxis Verified 09/24/20 06:18 red dye [RED DYE] Allergy Unknown unknown Verified 09/24/20 06:18 Sulfa (Sulfonamide Allergy Unknown UNKNOWN Verified 09/24/20 06:18 Antibiotics) [SULFA (SULFONAMIDE ANTIBIOTICS)] lamotrigine [From LAMICTAL] AdvReac Intermediate hx of Verified 09/24/20 06:18 yennifer on doses greater that 200 mg Adhesive Bandages Allergy Unknown Hives Uncoded 09/24/20 06:18 bees/wasps Allergy Unknown Anaphylaxis Uncoded 09/24/20 06:18 ivp contrast dye Allergy Unknown Hives Uncoded 09/24/20 06:18 lychees Allergy Unknown Hives Uncoded 09/24/20 06:18 oranges Allergy Unknown Anaphylaxis Uncoded 09/24/20 06:18 red dyes Allergy Unknown Hives Uncoded 09/24/20 06:18 Home Medications Medication Instructions Recorded Confirmed Type Vraylar 6 mg PO DAILY 08/12/20 08/12/20 History albuterol mcg INHALATION 08/12/20 History cetirizine [Zyrtec] 10 mg PO DAILY 08/12/20 08/12/20 History clonazepam 1 mg PO DAILY 08/12/20 08/12/20 History clozapine [Clozaril] 50 mg PO BID 08/12/20 08/12/20 History dexmethylphenidate 10 mg PO BID 08/12/20 08/12/20 History diphenhydramine HCl [Banophen] 50 mg PO TID PRN 08/12/20 08/12/20 History epinephrine 0.1 mg IM Q30M PRN 08/12/20 08/12/20 History famotidine 40 mg PO BEDTIME 08/12/20 08/12/20 History fluticasone propion-salmeterol 1 inh INHALATION BID 08/12/20 08/12/20 History [Advair Diskus] fluticasone propionate 1 spray INTRANASAL BID 08/12/20 08/12/20 History ipratropium-albuterol 3 ml INHALATION QID 08/12/20 08/12/20 History levonorgestrel-ethinyl estrad 1 tab PO DAILY 08/12/20 08/12/20 History metoprolol tartrate 25 mg PO BID 08/12/20 08/12/20 History prazosin 5 mg PO TID 08/12/20 08/12/20 History temazepam 30 mg PO BEDTIME PRN 08/12/20 08/12/20 History topiramate 50 mg PO BID 08/12/20 08/12/20 History zolpidem 10 mg PO BEDTIME PRN 08/12/20 08/12/20 History Exam Exam Date and Time: September 24, 2020 0716 Height,Weight and Vital Signs: Height 5 ft 8 in Weight 61.235 kg Airway Mallampati Class: II TM Dist: >3cm Neck ROM: Full Assessment and Plan Assessment Anesthesia Assessment: Anesthesia Plan Discussed and Chart Reviewed Final Anesthetic Review NPO: Yes ASA Class: II Final Preanesthetic Review: No Changes in Pt Med Stat, Meds/Allgs Chart Reviewed, Consent Obtained/Reviewed and Anes Risks/Benef Reviewed Patient Risk: Low Procedure Risk: Low Assessment/Block/Sedation in SS: Assess/Block/Sedation-SS Anesthetic Plan Anesthetic Plan: GA Disposition: Standard PACU
[2020-09-24 07:28] VITALS: BP 130/74; PULSE 82; RESP 16; TEMP 36.6; O2SAT 97
--- NOTE | 2020-09-24 07:29 | HO.ECTPROC ---
ECT Procedure Note Diagnosis/Treatment Diagnosis: Bipolar disorder Previous ECT Date: 09/08/20 Current Treatment Number: 2 Treatment: Maintenance (11/23) Interval Clinical Notes: improving ECT Settings Device: THYMATRON DGx Electrode Placement: Right Unilateral Program/Pulse Width: 0.25 Energy Percent: 25 Seizure Duration By EEG (in seconds): 65 Medications Administration General Anesthetic: Etomidate (16) Muscle Relaxant: Succinylcholine (100) Ancillary Medications Analgesics: Torodol - Pre ECT (15), Acetaminophen (650 mg post) and Narcotics (oxycodone 10 mg post) Anti-emetics: Zofran - Post ECT (4) Miscillaneous Medications: Propofol (30) and Flumazenil (0.5 pre) Airway Management Airway Management: Bag Mask Ventilation Treatment Recommendations No Changes Recommended: No change Notes: schedule f/u tx approx 3 wks Pt Tolerated Procedure w/o Issue: Yes
[2020-09-24 07:33] VITALS: BP 114/61; PULSE 81; RESP 20; O2SAT 97
[2020-09-24 07:38] VITALS: BP 127/85; PULSE 113; RESP 20; O2SAT 97
[2020-09-24 07:43] VITALS: BP 101/85; PULSE 108; RESP 20; O2SAT 98
[2020-09-24] MEDS: oxyCODONE HCl Immed Release 5 MG TABLET PO ×2 (07:49→07:50)
[2020-09-24 07:51] VITALS: BP 118/75; PULSE 82; RESP 20; O2SAT 97
--- NOTE | 2020-09-24 07:58 | HO.POSTANES ---
Post Anesthesia Evaluation Post Anesthesia Evaluation Vital Signs: Vital Signs Temp Pulse Resp BP Pulse Ox 09/24/20 07:51 82 20 118/75 97 09/24/20 07:43 108 H 20 101/85 98 09/24/20 07:38 113 H 20 127/85 97 09/24/20 07:33 81 20 114/61 97 09/24/20 07:28 97.8 F 82 16 130/74 97 09/24/20 06:20 98.1 F 98 16 125/73 97 Anesthesia: General Mental Status: Awake Pain Control: Satisfactory Nausea/Vomiting: None Hydration: Adequate Anesthesia-Related Issues: No Anes. Related Issues
== END 2020-09-24 08:14 | disposition home or self-care (01) ==
PROVIDERS: PCP Internal Medicine; Visit Provider Psychiatry & Neurology Psychiatry
PROC: (CPT 90870; principal; 2020-09-24 16:30)
DX: F33.2 Major depressive disorder, recurrent severe without psychotic features (principal); Z91.030 Bee allergy status; Z91.041 Radiographic dye allergy status; Z91.040 Latex allergy status; Z88.2 Allergy status to sulfonamides; Z91.018 Allergy to other foods; Z79.899 Other long term (current) drug therapy
CPT/HCPCS: 90870; J2250

== ENCOUNTER 2020-10-22 06:11 | Day surgery (SDC) | payer OTHER, SELFPAY ==
[2020-10-22 06:17] VITALS: BMI 20.5
[2020-10-22 06:26] VITALS: BP 111/75; PULSE 87; RESP 18; TEMP 36.6; O2SAT 98
--- NOTE | 2020-10-22 07:04 | P.CONAN_ITS ---
[facility] Past Medical History Medical History Anxiety Bipolar 1 disorder Depression Deviated septum History of electroconvulsive therapy Vasovagal episode Surgical History Surgical History History of bunionectomy Social History Social History Smoking Status: Never smoker Second Hand Smoke Exposure: No Advance Directives: No Advance Directives Information Provided: Yes Meds Allergies Allergy/AdvReac Type Severity Reaction Status Date / Time adhesive tape [ADHESIVE TAPE] Allergy Unknown unknown Verified 09/24/20 06:18 bee pollen [BEE STINGS] Allergy Unknown anaphylaxis Verified 09/24/20 06:18 Iodinated Contrast Media Allergy Unknown unknown Verified 09/24/20 06:18 [CONTRAST, IV] metaxalone [From SKELAXIN] Allergy Unknown unknown Verified 09/24/20 06:18 monocryl/vicryl sutures Allergy Unknown unknown Verified 09/24/20 06:18 morphine [MORPHINE] Allergy Unknown unknown Verified 09/24/20 06:18 moxifloxacin [From AVELOX] Allergy Unknown unknown Verified 09/24/20 06:18 orange [ORANGES] Allergy Unknown anaphylaxis Verified 09/24/20 06:18 red dye [RED DYE] Allergy Unknown unknown Verified 09/24/20 06:18 Sulfa (Sulfonamide Allergy Unknown UNKNOWN Verified 09/24/20 06:18 Antibiotics) [SULFA (SULFONAMIDE ANTIBIOTICS)] lamotrigine [From LAMICTAL] AdvReac Intermediate hx of Verified 09/24/20 06:18 yennifer on doses greater that 200 mg Adhesive Bandages Allergy Unknown Hives Uncoded 09/24/20 06:18 bees/wasps Allergy Unknown Anaphylaxis Uncoded 09/24/20 06:18 ivp contrast dye Allergy Unknown Hives Uncoded 09/24/20 06:18 lychees Allergy Unknown Hives Uncoded 09/24/20 06:18 oranges Allergy Unknown Anaphylaxis Uncoded 09/24/20 06:18 red dyes Allergy Unknown Hives Uncoded 09/24/20 06:18 Home Medications Medication Instructions Recorded Confirmed Type Vraylar 6 mg PO DAILY 08/12/20 08/12/20 History albuterol mcg INHALATION 08/12/20 History cetirizine [Zyrtec] 10 mg PO DAILY 08/12/20 08/12/20 History clonazepam 1 mg PO DAILY 08/12/20 08/12/20 History clozapine [Clozaril] 50 mg PO BID 08/12/20 08/12/20 History dexmethylphenidate 10 mg PO BID 08/12/20 08/12/20 History diphenhydramine HCl [Banophen] 50 mg PO TID PRN 08/12/20 08/12/20 History epinephrine 0.1 mg IM Q30M PRN 08/12/20 08/12/20 History famotidine 40 mg PO BEDTIME 08/12/20 08/12/20 History fluticasone propion-salmeterol 1 inh INHALATION BID 08/12/20 08/12/20 History [Advair Diskus] fluticasone propionate 1 spray INTRANASAL BID 08/12/20 08/12/20 History ipratropium-albuterol 3 ml INHALATION QID 08/12/20 08/12/20 History levonorgestrel-ethinyl estrad 1 tab PO DAILY 08/12/20 08/12/20 History metoprolol tartrate 25 mg PO BID 08/12/20 08/12/20 History prazosin 5 mg PO TID 08/12/20 08/12/20 History temazepam 30 mg PO BEDTIME PRN 08/12/20 08/12/20 History topiramate 50 mg PO BID 08/12/20 08/12/20 History zolpidem 10 mg PO BEDTIME PRN 08/12/20 08/12/20 History Exam Exam Date and Time: October 22, 2020 0704 Height,Weight and Vital Signs: Height 5 ft 8 in Weight 61.235 kg Last Vital Signs Temp 98 F 10/22/20 06:26 Pulse 87 10/22/20 06:26 Resp 18 10/22/20 06:26 BP 111/75 10/22/20 06:26 Pulse Ox 98 10/22/20 06:26 Airway Mallampati Class: II TM Dist: >3cm Neck ROM: Full Assessment and Plan Assessment Anesthesia Assessment: Anesthesia Plan Discussed and Chart Reviewed Final Anesthetic Review NPO: Yes ASA Class: II Final Preanesthetic Review: No Changes in Pt Med Stat, Meds/Allgs Chart Reviewed, Consent Obtained/Reviewed and Anes Risks/Benef Reviewed Patient Risk: Low Procedure Risk: Low Assessment/Block/Sedation in SS: Assess/Block/Sedation-SS Anesthetic Plan Anesthetic Plan: GA Disposition: Standard PACU
--- NOTE | 2020-10-22 07:09 | HO.ECTPROC ---
ECT Procedure Note Diagnosis/Treatment Diagnosis: Bipolar disorder Previous ECT Date: 09/24/20 Current Treatment Number: 2 (12/25) Treatment: Maintenance Interval Clinical Notes: pt more stable some hypomania noted ECT Settings Device: THYMATRON DGx Electrode Placement: Right Unilateral Program/Pulse Width: 0.25 Energy Percent: 25 Seizure Duration By EEG (in seconds): 87 Medications Administration General Anesthetic: Etomidate (16) Muscle Relaxant: Succinylcholine (100) Ancillary Medications Analgesics: Torodol - Pre ECT Anti-emetics: Zofran - Pre ECT Miscillaneous Medications: Flumazenil (2 mg) Airway Management Airway Management: Bag Mask Ventilation Treatment Recommendations Electrode Placement: Right Unilateral Energy Percent: 15 Notes: pt more stable schedule f/u tx 11/12/20 Pt Tolerated Procedure w/o Issue: Yes
[2020-10-22 07:29] VITALS: BP 99/55; PULSE 78; RESP 16; TEMP 37.2; O2SAT 98
[2020-10-22 07:34] VITALS: BP 112/70; PULSE 98; RESP 16; O2SAT 97
[2020-10-22 07:39] VITALS: BP 122/75; PULSE 99; RESP 16; O2SAT 97
[2020-10-22 07:44] VITALS: BP 126/73; PULSE 97; RESP 16; O2SAT 98
[2020-10-22] MEDS: Acetaminophen 325 MG TABLET 650 MG PO (07:50)
[2020-10-22] MEDS: oxyCODONE HCl Immed Release 5 MG TABLET 10 MG PO (07:52)
[2020-10-22 07:59] VITALS: BP 117/78; PULSE 91; RESP 18; O2SAT 99
--- NOTE | 2020-10-22 08:08 | HO.POSTANES ---
Post Anesthesia Evaluation Post Anesthesia Evaluation Vital Signs: Vital Signs Temp Pulse Resp BP Pulse Ox 10/22/20 07:59 91 18 117/78 99 10/22/20 07:44 97 16 126/73 98 10/22/20 07:39 99 16 122/75 97 10/22/20 07:34 98 16 112/70 97 10/22/20 07:29 98.9 F 78 16 99/55 L 98 10/22/20 06:26 98 F 87 18 111/75 98 Anesthesia: General Mental Status: Awake Pain Control: Satisfactory Nausea/Vomiting: None Hydration: Adequate Anesthesia-Related Issues: No Anes. Related Issues
== END 2020-10-22 08:30 | disposition home or self-care (01) ==
PROVIDERS: PCP Internal Medicine; Visit Provider Psychiatry & Neurology Psychiatry
PROC: (CPT 90870; principal; 2020-10-22 07:00)
DX: F31.9 Bipolar disorder, unspecified (principal)
CPT/HCPCS: 90870; J2250

== ENCOUNTER 2020-11-17 07:10 | Day surgery (SDC) | payer OTHER, SELFPAY ==
[2020-11-17] VITALS (8 sets, daily range): BP systolic 98–172; BP diastolic 54–103; PULSE 65–87; RESP 16–20; TEMP 36.1–36.8; O2SAT 95–98; BMI 19.8
--- NOTE | 2020-11-17 08:01 | PC.NURSE ---
patients med clearance was so therapy was never done and cancelled. patient was sent home.
--- NOTE | 2020-11-17 10:29 | P.CONAN_ITS ---
COUNT INCLUDES THE [facility] Past Medical History Medical History Anxiety Bipolar 1 disorder Depression Deviated septum History of electroconvulsive therapy Vasovagal episode Surgical History Surgical History History of bunionectomy Social History Social History Smoking Status: Never smoker Second Hand Smoke Exposure: No Advance Directives: No Advance Directives Information Provided: Yes Meds Allergies Allergy/AdvReac Type Severity Reaction Status Date / Time adhesive tape [ADHESIVE TAPE] Allergy Unknown unknown Verified 09/24/20 06:18 bee pollen [BEE STINGS] Allergy Unknown anaphylaxis Verified 09/24/20 06:18 Iodinated Contrast Media Allergy Unknown unknown Verified 09/24/20 06:18 [CONTRAST, IV] metaxalone [From SKELAXIN] Allergy Unknown unknown Verified 09/24/20 06:18 monocryl/vicryl sutures Allergy Unknown unknown Verified 09/24/20 06:18 morphine [MORPHINE] Allergy Unknown unknown Verified 09/24/20 06:18 moxifloxacin [From AVELOX] Allergy Unknown unknown Verified 09/24/20 06:18 orange [ORANGES] Allergy Unknown anaphylaxis Verified 09/24/20 06:18 red dye [RED DYE] Allergy Unknown unknown Verified 09/24/20 06:18 Sulfa (Sulfonamide Allergy Unknown UNKNOWN Verified 09/24/20 06:18 Antibiotics) [SULFA (SULFONAMIDE ANTIBIOTICS)] lamotrigine [From LAMICTAL] AdvReac Intermediate hx of Verified 09/24/20 06:18 yennifer on doses greater that 200 mg Adhesive Bandages Allergy Unknown Hives Uncoded 09/24/20 06:18 bees/wasps Allergy Unknown Anaphylaxis Uncoded 09/24/20 06:18 ivp contrast dye Allergy Unknown Hives Uncoded 09/24/20 06:18 lychees Allergy Unknown Hives Uncoded 09/24/20 06:18 oranges Allergy Unknown Anaphylaxis Uncoded 09/24/20 06:18 red dyes Allergy Unknown Hives Uncoded 09/24/20 06:18 Home Medications Medication Instructions Recorded Confirmed Type Vraylar 6 mg PO DAILY 08/12/20 08/12/20 History albuterol mcg INHALATION 08/12/20 History cetirizine [Zyrtec] 10 mg PO DAILY 08/12/20 08/12/20 History clonazepam 1 mg PO DAILY 08/12/20 08/12/20 History clozapine [Clozaril] 50 mg PO BID 08/12/20 08/12/20 History dexmethylphenidate 10 mg PO BID 08/12/20 08/12/20 History diphenhydramine HCl [Banophen] 50 mg PO TID PRN 08/12/20 08/12/20 History epinephrine 0.1 mg IM Q30M PRN 08/12/20 08/12/20 History famotidine 40 mg PO BEDTIME 08/12/20 08/12/20 History fluticasone propion-salmeterol 1 inh INHALATION BID 08/12/20 08/12/20 History [Advair Diskus] fluticasone propionate 1 spray INTRANASAL BID 08/12/20 08/12/20 History ipratropium-albuterol 3 ml INHALATION QID 08/12/20 08/12/20 History levonorgestrel-ethinyl estrad 1 tab PO DAILY 08/12/20 08/12/20 History metoprolol tartrate 25 mg PO BID 08/12/20 08/12/20 History prazosin 5 mg PO TID 08/12/20 08/12/20 History temazepam 30 mg PO BEDTIME PRN 08/12/20 08/12/20 History topiramate 50 mg PO BID 08/12/20 08/12/20 History zolpidem 10 mg PO BEDTIME PRN 08/12/20 08/12/20 History Exam Exam Date and Time: November 17, 2020 1029 Height,Weight and Vital Signs: Height 5 ft 9 in Weight 60.781 kg Airway Mallampati Class: II TM Dist: >3cm Neck ROM: Full Assessment and Plan Assessment Anesthesia Assessment: Anesthesia Plan Discussed and Chart Reviewed Final Anesthetic Review NPO: Yes ASA Class: II Final Preanesthetic Review: No Changes in Pt Med Stat, Meds/Allgs Chart Reviewed, Consent Obtained/Reviewed and Anes Risks/Benef Reviewed Patient Risk: Low Procedure Risk: Low Assessment/Block/Sedation in SS: Assess/Block/Sedation-SS Anesthetic Plan Anesthetic Plan: GA Disposition: Standard PACU
--- NOTE | 2020-11-17 10:36 | MHC.SHP ---
Pre-Procedural Eval Section B Chief Complaint: depression Details of Present Illness: recurrent depression and bipolar dx does well with ect Relevant Social History: None Present Medications: see Short Stay Collaborative assessment Medical History: Significant History (asthma hx trauma ) History of Previous Operations: Relevant previous surgery/procedure and date(s) (hx ect) Allergies: Allergies Allergy/AdvReac Type Severity Reaction Status Date / Time adhesive tape [ADHESIVE TAPE] Allergy Unknown unknown Verified 09/24/20 06:18 bee pollen [BEE STINGS] Allergy Unknown anaphylaxis Verified 09/24/20 06:18 Iodinated Contrast Media Allergy Unknown unknown Verified 09/24/20 06:18 [CONTRAST, IV] metaxalone [From SKELAXIN] Allergy Unknown unknown Verified 09/24/20 06:18 monocryl/vicryl sutures Allergy Unknown unknown Verified 09/24/20 06:18 morphine [MORPHINE] Allergy Unknown unknown Verified 09/24/20 06:18 moxifloxacin [From AVELOX] Allergy Unknown unknown Verified 09/24/20 06:18 orange [ORANGES] Allergy Unknown anaphylaxis Verified 09/24/20 06:18 red dye [RED DYE] Allergy Unknown unknown Verified 09/24/20 06:18 Sulfa (Sulfonamide Allergy Unknown UNKNOWN Verified 09/24/20 06:18 Antibiotics) [SULFA (SULFONAMIDE ANTIBIOTICS)] lamotrigine [From LAMICTAL] AdvReac Intermediate hx of Verified 09/24/20 06:18 yennifer on doses greater that 200 mg Adhesive Bandages Allergy Unknown Hives Uncoded 09/24/20 06:18 bees/wasps Allergy Unknown Anaphylaxis Uncoded 09/24/20 06:18 ivp contrast dye Allergy Unknown Hives Uncoded 09/24/20 06:18 lychees Allergy Unknown Hives Uncoded 09/24/20 06:18 oranges Allergy Unknown Anaphylaxis Uncoded 09/24/20 06:18 red dyes Allergy Unknown Hives Uncoded 09/24/20 06:18 Review of Systems Sugical H&P ROS: Negative: Constitution, Cardiovascular, Respiratory and Neurological and Yes, Specify: Psychiatric (anxiety expansive ) Exam Surgical H&P Exam: Normal: Heart, Normal: Lungs, Normal: Abdomen and Normal: Neurological Plan Diagnosis/Plan: Unchanged I have reviewed the history and physical and performed a pertinent physical examination on my patient. No changes have occurred unless specified.
--- NOTE | 2020-11-17 10:58 | HO.ECTPROC ---
ECT Procedure Note Diagnosis/Treatment Diagnosis: Bipolar disorder Previous ECT Date: 10/22/20 Current Treatment Number: 13 Treatment: Maintenance Interval Clinical Notes: Pt has been having episodes rapid cycling feels ect helpful ECT Settings Device: THYMATRON DGx Electrode Placement: Right Unilateral Program/Pulse Width: 0.25 Energy Percent: 20 Seizure Duration By EEG (in seconds): 36 Medications Administration General Anesthetic: Etomidate (16) Muscle Relaxant: Succinylcholine (100) Ancillary Medications Anti-emetics: Zofran - Pre ECT Miscillaneous Medications: Midazolam (2 mg post) and Flumazenil Airway Management Airway Management: Bag Mask Ventilation Treatment Recommendations No Changes Recommended: No change Notes: f/u tx scheduled 12/10/2019 Pt Tolerated Procedure w/o Issue: Yes
[2020-11-17] MEDS: Acetaminophen 325 MG TABLET 650 MG PO (11:18)
[2020-11-17] MEDS: oxyCODONE HCl Immed Release 5 MG TABLET 10 MG PO (11:19)
== END 2020-11-17 12:25 | disposition home or self-care (01) ==
PROVIDERS: PCP Internal Medicine; Visit Provider Psychiatry & Neurology Psychiatry
PROC: (CPT 90870; principal; 2020-11-17 15:00)
DX: F33.3 Major depressive disorder, recurrent, severe with psychotic symptoms (principal); J45.909 Unspecified asthma, uncomplicated; Z88.8 Allergy status to other drugs, medicaments and biological substances; Z91.030 Bee allergy status; Z91.041 Radiographic dye allergy status; Z91.040 Latex allergy status; Z88.2 Allergy status to sulfonamides; Z91.018 Allergy to other foods; Z79.51 Long term (current) use of inhaled steroids; Z79.899 Other long term (current) drug therapy
CPT/HCPCS: 90870; J0330; J1885; J2250; J2405

== ENCOUNTER 2020-11-18 15:03 | Outpatient (REF) | payer OTHER, SELFPAY ==
[2020-11-20 23:57] LABS: HPV mRNA E6/E7 rflx Not Detected (Not Detected)
== END 2020-11-18 15:04 | disposition home or self-care (01) ==
LOC: HO.LAB 15:03
PROVIDERS: PCP Internal Medicine; Referring Provider Internal Medicine; Visit Provider Advanced Practice Midwife
DX: Z01.419 Encounter for gynecological examination (general) (routine) without abnormal findings (principal); Z86.19 Personal history of other infectious and parasitic diseases
CPT/HCPCS: 36415; 87624; 88141; 88142

== ENCOUNTER → 2020-11-28 14:53 | Outpatient (REF) | payer OTHER, SELFPAY ==
--- NOTE | 2020-11-28 15:05 | ECG_ITS ---
Test Reason : PREOP, ASTHMA Blood Pressure : / mmHG Vent. Rate : 071 BPM Atrial Rate : 071 BPM P-R Int : 128 ms QRS Dur : 076 ms QT Int : 400 ms P-R-T Axes : 021 059 055 degrees QTc Int : 434 ms Normal sinus rhythm Normal ECG When compared with ECG of 17-JUL-2020 14:08, No significant change was found Referred By: Brook Malik Electronically Signed By:REYNALDO BERNAL MD
== END ==
LOC: HO.CARD 14:53
PROVIDERS: PCP Internal Medicine; Visit Provider Internal Medicine
DX: Z01.818 Encounter for other preprocedural examination (principal); J45.909 Unspecified asthma, uncomplicated; F98.8 Other specified behavioral and emotional disorders with onset usually occurring in childhood and adolescence; F31.9 Bipolar disorder, unspecified; F43.10 Post-traumatic stress disorder, unspecified; K21.9 Gastro-esophageal reflux disease without esophagitis
CPT/HCPCS: 93005

== ENCOUNTER 2020-12-19 06:12 | Day surgery (SDC) | payer OTHER, SELFPAY ==
[2020-12-19] VITALS (8 sets, daily range): BP systolic 108–127; BP diastolic 57–73; PULSE 91–125; RESP 14–118; TEMP 36.6–36.9; O2SAT 8–99
--- NOTE | 2020-12-19 07:06 | MHC.SHP ---
Pre-Procedural Eval Section B Chief Complaint: Severe Depression Details of Present Illness: bipolar dx rapid cycling Relevant Family History (Specify if Yes): No Relevant Social History: None Present Medications: see Short Stay Collaborative assessment Medical History: Significant History (asthma) History of Previous Operations: No relevant previous surgery (ect) Allergies: Allergies Allergy/AdvReac Type Severity Reaction Status Date / Time adhesive tape [ADHESIVE TAPE] Allergy Unknown unknown Verified 11/18/20 15:07 bee pollen [BEE STINGS] Allergy Unknown anaphylaxis Verified 11/18/20 15:07 Iodinated Contrast Media Allergy Unknown unknown Verified 11/18/20 15:07 [CONTRAST, IV] metaxalone [From SKELAXIN] Allergy Unknown unknown Verified 11/18/20 15:07 monocryl/vicryl sutures Allergy Unknown unknown Verified 11/18/20 15:07 morphine [MORPHINE] Allergy Unknown unknown Verified 11/18/20 15:07 moxifloxacin [From AVELOX] Allergy Unknown unknown Verified 11/18/20 15:07 orange [ORANGES] Allergy Unknown anaphylaxis Verified 11/18/20 15:07 red dye [RED DYE] Allergy Unknown unknown Verified 11/18/20 15:07 Sulfa (Sulfonamide Allergy Unknown UNKNOWN Verified 11/18/20 15:07 Antibiotics) [SULFA (SULFONAMIDE ANTIBIOTICS)] lamotrigine [From LAMICTAL] AdvReac Intermediate hx of Verified 11/18/20 15:07 yennifer on doses greater that 200 mg Adhesive Bandages Allergy Unknown Hives Uncoded 11/18/20 15:07 bees/wasps Allergy Unknown Anaphylaxis Uncoded 11/18/20 15:07 ivp contrast dye Allergy Unknown Hives Uncoded 11/18/20 15:07 lychees Allergy Unknown Hives Uncoded 11/18/20 15:07 oranges Allergy Unknown Anaphylaxis Uncoded 11/18/20 15:07 red dyes Allergy Unknown Hives Uncoded 11/18/20 15:07 Review of Systems Sugical H&P ROS: Yes, Specify: Cardiovascular, Respiratory and Neurological Exam Surgical H&P Exam: Normal: HEENT, Normal: Heart (rr no murmur ), Normal: Lungs and Normal: Neurological Exam Comment: pressured speech Plan Diagnosis/Plan: Unchanged I have reviewed the history and physical and performed a pertinent physical examination on my patient. No changes have occurred unless specified.
--- NOTE | 2020-12-19 07:15 | P.CONAN_ITS ---
[facility] Past Medical History Medical History Anxiety Bipolar 1 disorder Depression Deviated septum History of electroconvulsive therapy Vasovagal episode Surgical History Surgical History History of bunionectomy Social History Social History Smoking Status: Never smoker Second Hand Smoke Exposure: No Advance Directives: No Advance Directives Information Provided: Yes Meds Allergies Allergy/AdvReac Type Severity Reaction Status Date / Time adhesive tape [ADHESIVE TAPE] Allergy Unknown unknown Verified 11/18/20 15:07 bee pollen [BEE STINGS] Allergy Unknown anaphylaxis Verified 11/18/20 15:07 Iodinated Contrast Media Allergy Unknown unknown Verified 11/18/20 15:07 [CONTRAST, IV] metaxalone [From SKELAXIN] Allergy Unknown unknown Verified 11/18/20 15:07 monocryl/vicryl sutures Allergy Unknown unknown Verified 11/18/20 15:07 morphine [MORPHINE] Allergy Unknown unknown Verified 11/18/20 15:07 moxifloxacin [From AVELOX] Allergy Unknown unknown Verified 11/18/20 15:07 orange [ORANGES] Allergy Unknown anaphylaxis Verified 11/18/20 15:07 red dye [RED DYE] Allergy Unknown unknown Verified 11/18/20 15:07 Sulfa (Sulfonamide Allergy Unknown UNKNOWN Verified 11/18/20 15:07 Antibiotics) [SULFA (SULFONAMIDE ANTIBIOTICS)] lamotrigine [From LAMICTAL] AdvReac Intermediate hx of Verified 11/18/20 15:07 yennifer on doses greater that 200 mg Adhesive Bandages Allergy Unknown Hives Uncoded 11/18/20 15:07 bees/wasps Allergy Unknown Anaphylaxis Uncoded 11/18/20 15:07 ivp contrast dye Allergy Unknown Hives Uncoded 11/18/20 15:07 lychees Allergy Unknown Hives Uncoded 11/18/20 15:07 oranges Allergy Unknown Anaphylaxis Uncoded 11/18/20 15:07 red dyes Allergy Unknown Hives Uncoded 11/18/20 15:07 Home Medications Medication Instructions Recorded Confirmed Type Vraylar 6 mg PO DAILY 08/12/20 08/12/20 History albuterol mcg INHALATION 08/12/20 History cetirizine [Zyrtec] 10 mg PO DAILY 08/12/20 08/12/20 History clonazepam 1 mg PO DAILY 08/12/20 08/12/20 History clozapine [Clozaril] 50 mg PO BID 08/12/20 08/12/20 History dexmethylphenidate 10 mg PO BID 08/12/20 08/12/20 History diphenhydramine HCl [Banophen] 50 mg PO TID PRN 08/12/20 08/12/20 History epinephrine 0.1 mg IM Q30M PRN 08/12/20 08/12/20 History famotidine 40 mg PO BEDTIME 08/12/20 08/12/20 History fluticasone propion-salmeterol 1 inh INHALATION BID 08/12/20 08/12/20 History [Advair Diskus] fluticasone propionate 1 spray INTRANASAL BID 08/12/20 08/12/20 History ipratropium-albuterol 3 ml INHALATION QID 08/12/20 08/12/20 History levonorgestrel-ethinyl estrad 1 tab PO DAILY 08/12/20 08/12/20 History metoprolol tartrate 25 mg PO BID 08/12/20 08/12/20 History prazosin 5 mg PO TID 08/12/20 08/12/20 History temazepam 30 mg PO BEDTIME PRN 08/12/20 08/12/20 History topiramate 50 mg PO BID 08/12/20 08/12/20 History zolpidem 10 mg PO BEDTIME PRN 08/12/20 08/12/20 History Exam Exam Date and Time: December 19, 2020 0715 Height,Weight and Vital Signs: Last Vital Signs Temp 98.4 F 12/19/20 06:54 Pulse 109 H 12/19/20 06:54 Resp 17 12/19/20 06:54 BP 121/70 12/19/20 06:54 Pulse Ox 98 12/19/20 06:54 Airway Mallampati Class: I TM Dist: >3cm Loose/Missing/Broken Teeth: No Heart: tachycardic Lungs: nl Assessment and Plan Assessment Anesthesia Assessment: Anesthesia Plan Discussed and Chart Reviewed Final Anesthetic Review NPO: Yes ASA Class: II Final Preanesthetic Review: No Changes in Pt Med Stat, Meds/Allgs Chart Reviewed, Consent Obtained/Reviewed and Anes Risks/Benef Reviewed Patient Risk: Low Procedure Risk: Low Anesthetic Plan Anesthetic Plan: GA Disposition: Standard PACU
--- NOTE | 2020-12-19 07:15 | HO.ECTPROC ---
ECT Procedure Note Diagnosis/Treatment Diagnosis: Bipolar disorder Current Treatment Number: 14 Treatment: Maintenance ECT Settings Device: THYMATRON DGx Program/Pulse Width: 0.25 Energy Percent: 20 Seizure Duration By EEG (in seconds): 100 Ancillary Medications Analgesics: Torodol - Pre ECT Anti-emetics: Zofran - Pre ECT Miscillaneous Medications: Propofol (20 mg) and Midazolam (2mg) Airway Management Airway Management: Bag Mask Ventilation Treatment Recommendations No Changes Recommended: No change Pt Tolerated Procedure w/o Issue: Yes
[2020-12-19] MEDS: Acetaminophen 325 MG TABLET 650 MG PO (08:16)
[2020-12-19] MEDS: oxyCODONE HCl Immed Release 5 MG TABLET 10 MG PO (08:17)
[2020-12-19] MEDS: clonazePAM 0.5 MG TABLET PO (08:21)
--- NOTE | 2020-12-19 08:24 | HO.POSTANES ---
Post Anesthesia Evaluation Post Anesthesia Evaluation Vital Signs: Vital Signs Temp Pulse Resp BP Pulse Ox 12/19/20 07:45 121 H 118 H 127/69 96 12/19/20 07:40 125 H 17 108/69 98 12/19/20 07:35 118 H 18 110/57 L 8 L 12/19/20 07:30 97.8 F 91 16 112/59 L 99 12/19/20 06:54 98.4 F 109 H 17 121/70 98 Anesthesia: General Mental Status: Awake Pain Control: Satisfactory Nausea/Vomiting: None Hydration: Adequate Anesthesia-Related Issues: No Anes. Related Issues
== END 2020-12-19 09:15 | disposition home or self-care (01) ==
PROVIDERS: PCP Internal Medicine; Visit Provider Psychiatry & Neurology Psychiatry
PROC: (CPT 90870; principal; 2020-12-19 07:30)
DX: F33.2 Major depressive disorder, recurrent severe without psychotic features (principal); F31.9 Bipolar disorder, unspecified; Z88.2 Allergy status to sulfonamides
CPT/HCPCS: 90870; J0330; J1885; J2250; J2405

== ENCOUNTER 2021-01-12 06:10 | Day surgery (SDC) | payer OTHER, SELFPAY ==
[2021-01-12 06:23] VITALS: BP 112/69; PULSE 78; RESP 16; TEMP 36.5; O2SAT 98; BMI 32.7
[2021-01-12 06:55] VITALS: BMI 32.7
--- NOTE | 2021-01-12 07:05 | HO.ANESPROP2 ---
REPLACED BY [facility] Active Problems Active Problems: All Active Problems (Updated 11/18/20 @ 17:28 by Kaylyn Goldberg CNM) History of HPV infection (Acute) Well woman exam with routine gynecological exam (Acute) Past Medical History Medical History Anxiety Bipolar 1 disorder Depression Deviated septum History of electroconvulsive therapy Vasovagal episode Surgical History Surgical History History of bunionectomy Social History Social History Smoking Status: Never smoker Second Hand Smoke Exposure: No Use of substances other than those prescribed or required for medical reasons: No Have you been hit, kicked, punched, or otherwise hurt by someone within the past year? If so, by whom?: No Advance Directives: No Advance Directives Information Provided: Yes Meds Allergies Allergy/AdvReac Type Severity Reaction Status Date / Time adhesive tape [ADHESIVE TAPE] Allergy Unknown unknown Verified 11/18/20 15:07 bee pollen [BEE STINGS] Allergy Unknown anaphylaxis Verified 11/18/20 15:07 Iodinated Contrast Media Allergy Unknown unknown Verified 11/18/20 15:07 [CONTRAST, IV] metaxalone [From SKELAXIN] Allergy Unknown unknown Verified 11/18/20 15:07 monocryl/vicryl sutures Allergy Unknown unknown Verified 11/18/20 15:07 morphine [MORPHINE] Allergy Unknown unknown Verified 11/18/20 15:07 moxifloxacin [From AVELOX] Allergy Unknown unknown Verified 11/18/20 15:07 orange [ORANGES] Allergy Unknown anaphylaxis Verified 11/18/20 15:07 red dye [RED DYE] Allergy Unknown unknown Verified 11/18/20 15:07 Sulfa (Sulfonamide Allergy Unknown UNKNOWN Verified 11/18/20 15:07 Antibiotics) [SULFA (SULFONAMIDE ANTIBIOTICS)] lamotrigine [From LAMICTAL] AdvReac Intermediate hx of Verified 11/18/20 15:07 yennifer on doses greater that 200 mg Adhesive Bandages Allergy Unknown Hives Uncoded 11/18/20 15:07 bees/wasps Allergy Unknown Anaphylaxis Uncoded 11/18/20 15:07 ivp contrast dye Allergy Unknown Hives Uncoded 11/18/20 15:07 lychees Allergy Unknown Hives Uncoded 11/18/20 15:07 oranges Allergy Unknown Anaphylaxis Uncoded 11/18/20 15:07 red dyes Allergy Unknown Hives Uncoded 11/18/20 15:07 Home Medications Medication Instructions Recorded Confirmed Last Taken Type Vraylar 6 mg PO DAILY 08/12/20 08/12/20 08/28/20 History albuterol mcg INHALATION 08/12/20 08/26/20 History mcg cetirizine [Zyrtec] 10 mg PO DAILY 08/12/20 08/12/20 08/28/20 History clonazepam 1 mg PO DAILY 08/12/20 08/12/20 08/26/20 History 1 mg clozapine [Clozaril] 50 mg PO BID 08/12/20 08/12/20 08/28/20 History dexmethylphenidate 10 mg PO BID 08/12/20 08/12/20 08/28/20 History diphenhydramine HCl [Banophen] 50 mg PO TID PRN 08/12/20 08/12/20 Unknown History epinephrine 0.1 mg IM Q30M PRN 08/12/20 08/12/20 08/26/20 History 0.1 mg famotidine 40 mg PO BEDTIME 08/12/20 08/12/20 08/28/20 History fluticasone propion-salmeterol 1 inh INHALATION BID 08/12/20 08/12/20 08/28/20 History [Advair Diskus] fluticasone propionate 1 spray INTRANASAL BID 08/12/20 08/12/20 08/28/20 History ipratropium-albuterol 3 ml INHALATION QID 08/12/20 08/12/20 08/26/20 History 3 mL levonorgestrel-ethinyl estrad 1 tab PO DAILY 08/12/20 08/12/20 08/28/20 History metoprolol tartrate 25 mg PO BID 08/12/20 08/12/20 09/12/20 History 0530 prazosin 5 mg PO TID 08/12/20 08/12/20 08/28/20 History temazepam 30 mg PO BEDTIME PRN 08/12/20 08/12/20 08/26/20 History 30 mg topiramate 50 mg PO BID 08/12/20 08/12/20 08/27/20 History zolpidem 10 mg PO BEDTIME PRN 08/12/20 08/12/20 08/26/20 History 10 mg Exam Exam Date and Time: January 12, 202105 Height,Weight and Vital Signs: Height 5 ft 8 in Weight 97.7 kg Last Vital Signs Temp 97.7 F 01/12/21 06:23 Pulse 78 01/12/21 06:23 Resp 16 01/12/21 06:23 BP 112/69 01/12/21 06:23 Pulse Ox 98 01/12/21 06:23 Airway Mallampati Class: II TM Dist: >3cm Neck ROM: Full Assessment and Plan Assessment Anesthesia Assessment: Anesthesia Plan Discussed and Chart Reviewed Final Anesthetic Review NPO: Yes ASA Class: II Final Preanesthetic Review: No Changes in Pt Med Stat, Meds/Allgs Chart Reviewed, Consent Obtained/Reviewed and Anes Risks/Benef Reviewed Patient Risk: Low Procedure Risk: Low Assessment/Block/Sedation in SS: Assess/Block/Sedation-SS Anesthetic Plan Anesthetic Plan: GA Disposition: Standard PACU
--- NOTE | 2021-01-12 07:10 | MHC.SHP ---
Pre-Procedural Eval Section A The patient is an INPATIENT: No Changes since office visit: Yes Patient answered all questions; No Cold of Flu in the past 2 weeks, No New Medical Problems and No Changes in Medication The History & Physical has been completed within 30 days and I have reviewed it.: Yes Section B Chief Complaint: Severe Depression Allergies: Allergies Allergy/AdvReac Type Severity Reaction Status Date / Time adhesive tape [ADHESIVE TAPE] Allergy Unknown unknown Verified 11/18/20 15:07 bee pollen [BEE STINGS] Allergy Unknown anaphylaxis Verified 11/18/20 15:07 Iodinated Contrast Media Allergy Unknown unknown Verified 11/18/20 15:07 [CONTRAST, IV] metaxalone [From SKELAXIN] Allergy Unknown unknown Verified 11/18/20 15:07 monocryl/vicryl sutures Allergy Unknown unknown Verified 11/18/20 15:07 morphine [MORPHINE] Allergy Unknown unknown Verified 11/18/20 15:07 moxifloxacin [From AVELOX] Allergy Unknown unknown Verified 11/18/20 15:07 orange [ORANGES] Allergy Unknown anaphylaxis Verified 11/18/20 15:07 red dye [RED DYE] Allergy Unknown unknown Verified 11/18/20 15:07 Sulfa (Sulfonamide Allergy Unknown UNKNOWN Verified 11/18/20 15:07 Antibiotics) [SULFA (SULFONAMIDE ANTIBIOTICS)] lamotrigine [From LAMICTAL] AdvReac Intermediate hx of Verified 11/18/20 15:07 yennifer on doses greater that 200 mg Adhesive Bandages Allergy Unknown Hives Uncoded 11/18/20 15:07 bees/wasps Allergy Unknown Anaphylaxis Uncoded 11/18/20 15:07 ivp contrast dye Allergy Unknown Hives Uncoded 11/18/20 15:07 lychees Allergy Unknown Hives Uncoded 11/18/20 15:07 oranges Allergy Unknown Anaphylaxis Uncoded 11/18/20 15:07 red dyes Allergy Unknown Hives Uncoded 11/18/20 15:07 Plan I have reviewed the history and physical and performed a pertinent physical examination on my patient. No changes have occurred unless specified.
--- NOTE | 2021-01-12 07:27 | HO.ECTPROC ---
ECT Procedure Note Diagnosis/Treatment Date of Service: 01/12/21 Diagnosis: Bipolar disorder Current Treatment Number: Other (16) Treatment: Maintenance Interval Clinical Notes: pt has had inc cycling as she is going down on clozapine ECT Settings Device: THYMATRON DGx Electrode Placement: Right Unilateral Program/Pulse Width: 0.25 Energy Percent: 15 Seizure Duration By EEG (in seconds): 38 Medications Administration General Anesthetic: Etomidate (16) Muscle Relaxant: Succinylcholine (100) Ancillary Medications Analgesics: Torodol - Pre ECT Anti-emetics: Zofran - Pre ECT Miscillaneous Medications: Propofol (30) and Midazolam (2 mg) Airway Management Airway Management: Bag Mask Ventilation Treatment Recommendations No Changes Recommended: No change Notes: f/u tx 3 weeks Pt Tolerated Procedure w/o Issue: Yes
[2021-01-12 07:34] VITALS: BP 112/69; PULSE 64; RESP 16; TEMP 36.3; O2SAT 99
[2021-01-12 07:39] VITALS: BP 110/69; PULSE 80; RESP 18; O2SAT 100
[2021-01-12 07:43] VITALS: BP 112/66; PULSE 78; RESP 20; O2SAT 96
[2021-01-12 07:48] VITALS: BP 90/67; PULSE 75; RESP 14; O2SAT 99
[2021-01-12 08:03] VITALS: BP 108/73; PULSE 72; RESP 16; O2SAT 99
[2021-01-12] MEDS: Acetaminophen 325 MG TABLET 650 MG PO (08:04)
[2021-01-12] MEDS: oxyCODONE HCl Immed Release 5 MG TABLET 10 MG PO (08:05)
== END 2021-01-12 08:41 | disposition home or self-care (01) ==
PROVIDERS: PCP Internal Medicine; Visit Provider Psychiatry & Neurology Psychiatry
PROC: (CPT 90870; principal; 2021-01-12 07:00)
DX: F31.4 Bipolar disorder, current episode depressed, severe, without psychotic features (principal); Z91.041 Radiographic dye allergy status; Z91.040 Latex allergy status; Z88.2 Allergy status to sulfonamides; Z88.8 Allergy status to other drugs, medicaments and biological substances
CPT/HCPCS: 90870; J0330; J1885; J2250; J2405

== ENCOUNTER 2021-02-02 08:58 | Day surgery (SDC) | payer OTHER, SELFPAY ==
[2021-02-02] VITALS (7 sets, daily range): BP systolic 97–118; BP diastolic 44–72; PULSE 78–101; RESP 16–19; TEMP 36.8–37.2; O2SAT 98–100; BMI 19.8
--- NOTE | 2021-02-02 09:43 | HO.ANESPROP2 ---
[facility] Active Problems Active Problems: All Active Problems (Updated 11/18/20 @ 17:28 by Kaylyn Goldberg CNM) History of HPV infection (Acute) Well woman exam with routine gynecological exam (Acute) Past Medical History Medical History Anxiety Bipolar 1 disorder Depression Deviated septum History of electroconvulsive therapy Vasovagal episode Surgical History Surgical History History of bunionectomy Social History Social History Smoking Status: Never smoker Second Hand Smoke Exposure: No Use of substances other than those prescribed or required for medical reasons: No Advance Directives: No Advance Directives Information Provided: Yes Recently lost weight without trying: No Meds Allergies Allergy/AdvReac Type Severity Reaction Status Date / Time adhesive tape [ADHESIVE TAPE] Allergy Unknown unknown Verified 11/18/20 15:07 bee pollen [BEE STINGS] Allergy Unknown anaphylaxis Verified 11/18/20 15:07 Iodinated Contrast Media Allergy Unknown unknown Verified 11/18/20 15:07 [CONTRAST, IV] metaxalone [From SKELAXIN] Allergy Unknown unknown Verified 11/18/20 15:07 monocryl/vicryl sutures Allergy Unknown unknown Verified 11/18/20 15:07 morphine [MORPHINE] Allergy Unknown unknown Verified 11/18/20 15:07 moxifloxacin [From AVELOX] Allergy Unknown unknown Verified 11/18/20 15:07 orange [ORANGES] Allergy Unknown anaphylaxis Verified 11/18/20 15:07 red dye [RED DYE] Allergy Unknown unknown Verified 11/18/20 15:07 Sulfa (Sulfonamide Allergy Unknown UNKNOWN Verified 11/18/20 15:07 Antibiotics) [SULFA (SULFONAMIDE ANTIBIOTICS)] lamotrigine [From LAMICTAL] AdvReac Intermediate hx of Verified 11/18/20 15:07 yennifer on doses greater that 200 mg Adhesive Bandages Allergy Unknown Hives Uncoded 11/18/20 15:07 bees/wasps Allergy Unknown Anaphylaxis Uncoded 11/18/20 15:07 ivp contrast dye Allergy Unknown Hives Uncoded 11/18/20 15:07 lychees Allergy Unknown Hives Uncoded 11/18/20 15:07 oranges Allergy Unknown Anaphylaxis Uncoded 11/18/20 15:07 red dyes Allergy Unknown Hives Uncoded 11/18/20 15:07 Active Medications: Current Medications Generic Name Dose Route Start Last Admin Trade Name Tonya PRN Reason Stop Dose Admin Sodium Chloride 1,000 mls @ 50 mls/hr 02/02/21 09:45 Ns IVCONT .Q20H [place] Home Medications Medication Instructions Recorded Confirmed Last Taken Type Vraylar 6 mg PO DAILY 08/12/20 08/12/20 08/28/20 History albuterol mcg INHALATION 08/12/20 08/26/20 History mcg cetirizine [Zyrtec] 10 mg PO DAILY 08/12/20 08/12/20 08/28/20 History clonazepam 1 mg PO DAILY 08/12/20 08/12/20 08/26/20 History 1 mg clozapine [Clozaril] 50 mg PO BID 08/12/20 08/12/20 08/28/20 History dexmethylphenidate 10 mg PO BID 08/12/20 08/12/20 08/28/20 History diphenhydramine HCl [Banophen] 50 mg PO TID PRN 08/12/20 08/12/20 Unknown History epinephrine 0.1 mg IM Q30M PRN 08/12/20 08/12/20 08/26/20 History 0.1 mg famotidine 40 mg PO BEDTIME 08/12/20 08/12/20 08/28/20 History fluticasone propion-salmeterol 1 inh INHALATION BID 08/12/20 08/12/20 08/28/20 History [Advair Diskus] fluticasone propionate 1 spray INTRANASAL BID 08/12/20 08/12/20 08/28/20 History ipratropium-albuterol 3 ml INHALATION QID 08/12/20 08/12/20 08/26/20 History 3 mL levonorgestrel-ethinyl estrad 1 tab PO DAILY 08/12/20 08/12/20 08/28/20 History metoprolol tartrate 25 mg PO BID 08/12/20 08/12/20 09/12/20 History 0530 prazosin 5 mg PO TID 08/12/20 08/12/20 08/28/20 History temazepam 30 mg PO BEDTIME PRN 08/12/20 08/12/20 08/26/20 History 30 mg topiramate 50 mg PO BID 08/12/20 08/12/20 08/27/20 History zolpidem 10 mg PO BEDTIME PRN 08/12/20 08/12/20 08/26/20 History 10 mg Exam Exam Date and Time: February 02, 2021 0943 Height,Weight and Vital Signs: Height 5 ft 8 in Weight 58.967 kg Last Vital Signs Temp 98.2 F 02/02/21 09:12 Pulse 95 02/02/21 09:12 Resp 17 02/02/21 09:12 BP 111/70 02/02/21 09:12 Pulse Ox 98 02/02/21 09:12 Airway Mallampati Class: II TM Dist: >3cm Neck ROM: Full Heart: RRr Lungs: CTa BL Assessment and Plan Assessment Anesthesia Assessment: Anesthesia Plan Discussed and Chart Reviewed Final Anesthetic Review NPO: Yes ASA Class: III Final Preanesthetic Review: No Changes in Pt Med Stat and Consent Obtained/Reviewed Patient Risk: Intermediate Procedure Risk: Intermediate Anesthetic Plan Anesthetic Plan: MAC: Disposition: Standard PACU
--- NOTE | 2021-02-02 09:59 | MHC.SHP ---
Pre-Procedural Eval Section A The patient is an INPATIENT: No Changes since office visit: Yes Changes in Medication and Yes Patient answered all questions; No Cold of Flu in the past 2 weeks and No New Medical Problems Section B Chief Complaint: depression Details of Present Illness: rcurrent bipoolar dep Relevant Social History: None Present Medications: see Short Stay [facility] assessment Medical History: Significant History (asthma) History of Previous Operations: Relevant previous surgery/procedure and date(s) (ect ) Allergies: Allergies Allergy/AdvReac Type Severity Reaction Status Date / Time adhesive tape [ADHESIVE TAPE] Allergy Unknown unknown Verified 11/18/20 15:07 bee pollen [BEE STINGS] Allergy Unknown anaphylaxis Verified 11/18/20 15:07 Iodinated Contrast Media Allergy Unknown unknown Verified 11/18/20 15:07 [CONTRAST, IV] metaxalone [From SKELAXIN] Allergy Unknown unknown Verified 11/18/20 15:07 monocryl/vicryl sutures Allergy Unknown unknown Verified 11/18/20 15:07 morphine [MORPHINE] Allergy Unknown unknown Verified 11/18/20 15:07 moxifloxacin [From AVELOX] Allergy Unknown unknown Verified 11/18/20 15:07 orange [ORANGES] Allergy Unknown anaphylaxis Verified 11/18/20 15:07 red dye [RED DYE] Allergy Unknown unknown Verified 11/18/20 15:07 Sulfa (Sulfonamide Allergy Unknown UNKNOWN Verified 11/18/20 15:07 Antibiotics) [SULFA (SULFONAMIDE ANTIBIOTICS)] lamotrigine [From LAMICTAL] AdvReac Intermediate hx of Verified 11/18/20 15:07 yennifer on doses greater that 200 mg Adhesive Bandages Allergy Unknown Hives Uncoded 11/18/20 15:07 bees/wasps Allergy Unknown Anaphylaxis Uncoded 11/18/20 15:07 ivp contrast dye Allergy Unknown Hives Uncoded 11/18/20 15:07 lychees Allergy Unknown Hives Uncoded 11/18/20 15:07 oranges Allergy Unknown Anaphylaxis Uncoded 11/18/20 15:07 red dyes Allergy Unknown Hives Uncoded 11/18/20 15:07 Review of Systems Sugical H&P ROS: Negative: Cardiovascular, Respiratory and Neurological and Yes, Specify: Psychiatric (rapid cycling) Exam Surgical H&P Exam: Normal: Heart (rr no murmur), Normal: Lungs (clear) and Normal: Neurological Plan Diagnosis/Plan: Unchanged I have reviewed the history and physical and performed a pertinent physical examination on my patient. No changes have occurred unless specified.
--- NOTE | 2021-02-02 10:07 | HO.ECTPROC ---
ECT Procedure Note Diagnosis/Treatment Date of Service: 02/02/21 Diagnosis: Bipolar disorder Current Treatment Number: Other (maint) Treatment: Maintenance Interval Clinical Notes: pt has been rapid cycling ECT Settings Device: THYMATRON DGx Electrode Placement: Right Unilateral Program/Pulse Width: 0.25 Energy Percent: 15 Seizure Duration By EEG (in seconds): 51 Medications Administration General Anesthetic: Etomidate (16) Muscle Relaxant: Succinylcholine (100) Ancillary Medications Analgesics: Torodol - Pre ECT Anti-emetics: Zofran - Pre ECT Cardiovascular Medications: Esmolol Miscillaneous Medications: Propofol and Midazolam Airway Management Airway Management: Bag Mask Ventilation Treatment Recommendations No Changes Recommended: No change Notes: f/u tx 2 weeks
[2021-02-02] MEDS: Acetaminophen 325 MG TABLET 650 MG PO (11:11)
[2021-02-02] MEDS: oxyCODONE HCl Immed Release 5 MG TABLET 10 MG PO (11:12)
== END 2021-02-02 11:31 | disposition home or self-care (01) ==
PROVIDERS: PCP Internal Medicine; Visit Provider Psychiatry & Neurology Psychiatry
PROC: (CPT 90870; principal; 2021-02-02 10:00)
DX: F31.89 Other bipolar disorder (principal)
CPT/HCPCS: 90870; J0330; J1885; J2250; J2405

== ENCOUNTER 2021-04-03 08:01 | Day surgery (SDC) | payer OTHER, SELFPAY ==
[2021-04-03] VITALS (9 sets, daily range): BP systolic 92–119; BP diastolic 37–83; PULSE 69–101; RESP 16–22; TEMP 36.7–37.2; O2SAT 95–100; BMI 20.3
--- NOTE | 2021-04-03 09:09 | HO.ANESPROP2 ---
[facility] Active Problems Active Problems: All Active Problems (Updated 11/18/20 @ 17:28 by Kaylyn Goldberg CNM) History of HPV infection (Acute) Well woman exam with routine gynecological exam (Acute) Past Medical History Medical History Anxiety Bipolar 1 disorder Depression Deviated septum History of electroconvulsive therapy Vasovagal episode Surgical History Surgical History History of bunionectomy Social History Social History Smoking Status: Never smoker Second Hand Smoke Exposure: No Are you DNR?: No Advance Directives: No Advance Directives Information Provided: Yes Meds Allergies Allergy/AdvReac Type Severity Reaction Status Date / Time adhesive tape [ADHESIVE TAPE] Allergy Unknown unknown Verified 11/18/20 15:07 bee pollen [BEE STINGS] Allergy Unknown anaphylaxis Verified 11/18/20 15:07 Iodinated Contrast Media Allergy Unknown unknown Verified 11/18/20 15:07 [CONTRAST, IV] metaxalone [From SKELAXIN] Allergy Unknown unknown Verified 11/18/20 15:07 monocryl/vicryl sutures Allergy Unknown unknown Verified 11/18/20 15:07 morphine [MORPHINE] Allergy Unknown unknown Verified 11/18/20 15:07 moxifloxacin [From AVELOX] Allergy Unknown unknown Verified 11/18/20 15:07 orange [ORANGES] Allergy Unknown anaphylaxis Verified 11/18/20 15:07 red dye [RED DYE] Allergy Unknown unknown Verified 11/18/20 15:07 Sulfa (Sulfonamide Allergy Unknown UNKNOWN Verified 11/18/20 15:07 Antibiotics) [SULFA (SULFONAMIDE ANTIBIOTICS)] lamotrigine [From LAMICTAL] AdvReac Intermediate hx of Verified 11/18/20 15:07 yennifer on doses greater that 200 mg Adhesive Bandages Allergy Unknown Hives Uncoded 11/18/20 15:07 bees/wasps Allergy Unknown Anaphylaxis Uncoded 11/18/20 15:07 ivp contrast dye Allergy Unknown Hives Uncoded 11/18/20 15:07 lychees Allergy Unknown Hives Uncoded 11/18/20 15:07 oranges Allergy Unknown Anaphylaxis Uncoded 11/18/20 15:07 red dyes Allergy Unknown Hives Uncoded 11/18/20 15:07 Home Medications Medication Instructions Recorded Confirmed Last Taken Type Vraylar 6 mg PO DAILY 08/12/20 08/12/20 08/28/20 History albuterol mcg INHALATION 08/12/20 08/26/20 History mcg cetirizine [Zyrtec] 10 mg PO DAILY 08/12/20 08/12/20 08/28/20 History clonazepam 1 mg PO DAILY 08/12/20 08/12/20 08/26/20 History 1 mg clozapine [Clozaril] 50 mg PO BID 08/12/20 08/12/20 08/28/20 History dexmethylphenidate 10 mg PO BID 08/12/20 08/12/20 08/28/20 History diphenhydramine HCl [Banophen] 50 mg PO TID PRN 08/12/20 08/12/20 Unknown History epinephrine 0.1 mg IM Q30M PRN 08/12/20 08/12/20 08/26/20 History 0.1 mg famotidine 40 mg PO BEDTIME 08/12/20 08/12/20 08/28/20 History fluticasone propion-salmeterol 1 inh INHALATION BID 08/12/20 08/12/20 08/28/20 History [Advair Diskus] fluticasone propionate 1 spray INTRANASAL BID 08/12/20 08/12/20 08/28/20 History ipratropium-albuterol 3 ml INHALATION QID 08/12/20 08/12/20 08/26/20 History 3 mL levonorgestrel-ethinyl estrad 1 tab PO DAILY 08/12/20 08/12/20 08/28/20 History metoprolol tartrate 25 mg PO BID 08/12/20 08/12/20 09/12/20 History 0530 prazosin 5 mg PO TID 08/12/20 08/12/20 08/28/20 History temazepam 30 mg PO BEDTIME PRN 08/12/20 08/12/20 08/26/20 History 30 mg topiramate 50 mg PO BID 08/12/20 08/12/20 08/27/20 History zolpidem 10 mg PO BEDTIME PRN 08/12/20 08/12/20 08/26/20 History 10 mg Exam Exam Date and Time: April 03, 2021 0909 Height,Weight and Vital Signs: Height 5 ft 9 in Weight 62.596 kg Last Vital Signs Temp 98.1 F 04/03/21 08:26 Pulse 82 04/03/21 08:26 Resp 18 04/03/21 08:26 BP 110/70 04/03/21 08:26 Pulse Ox 98 04/03/21 08:26 Airway Mallampati Class: II TM Dist: >3cm Neck ROM: Full Assessment and Plan Assessment Anesthesia Assessment: Anesthesia Plan Discussed and Chart Reviewed Final Anesthetic Review NPO: Yes ASA Class: II Final Preanesthetic Review: No Changes in Pt Med Stat, Meds/Allgs Chart Reviewed, Consent Obtained/Reviewed and Anes Risks/Benef Reviewed Patient Risk: Low Procedure Risk: Low Assessment/Block/Sedation in SS: Assess/Block/Sedation-SS Anesthetic Plan Anesthetic Plan: GA Disposition: Standard PACU
--- NOTE | 2021-04-03 09:16 | MHC.SHP ---
Pre-Procedural Eval Section A The patient is an INPATIENT: Yes Changes since office visit: Yes Changes in Medication and Yes Patient answered all questions; No Cold of Flu in the past 2 weeks and No New Medical Problems The History & Physical has been completed within 30 days and I have reviewed it.: Yes Section B Chief Complaint: depression Allergies: Allergies Allergy/AdvReac Type Severity Reaction Status Date / Time adhesive tape [ADHESIVE TAPE] Allergy Unknown unknown Verified 11/18/20 15:07 bee pollen [BEE STINGS] Allergy Unknown anaphylaxis Verified 11/18/20 15:07 Iodinated Contrast Media Allergy Unknown unknown Verified 11/18/20 15:07 [CONTRAST, IV] metaxalone [From SKELAXIN] Allergy Unknown unknown Verified 11/18/20 15:07 monocryl/vicryl sutures Allergy Unknown unknown Verified 11/18/20 15:07 morphine [MORPHINE] Allergy Unknown unknown Verified 11/18/20 15:07 moxifloxacin [From AVELOX] Allergy Unknown unknown Verified 11/18/20 15:07 orange [ORANGES] Allergy Unknown anaphylaxis Verified 11/18/20 15:07 red dye [RED DYE] Allergy Unknown unknown Verified 11/18/20 15:07 Sulfa (Sulfonamide Allergy Unknown UNKNOWN Verified 11/18/20 15:07 Antibiotics) [SULFA (SULFONAMIDE ANTIBIOTICS)] lamotrigine [From LAMICTAL] AdvReac Intermediate hx of Verified 11/18/20 15:07 yennifer on doses greater that 200 mg Adhesive Bandages Allergy Unknown Hives Uncoded 11/18/20 15:07 bees/wasps Allergy Unknown Anaphylaxis Uncoded 11/18/20 15:07 ivp contrast dye Allergy Unknown Hives Uncoded 11/18/20 15:07 lychees Allergy Unknown Hives Uncoded 11/18/20 15:07 oranges Allergy Unknown Anaphylaxis Uncoded 11/18/20 15:07 red dyes Allergy Unknown Hives Uncoded 11/18/20 15:07 Plan I have reviewed the history and physical and performed a pertinent physical examination on my patient. No changes have occurred unless specified.
--- NOTE | 2021-04-03 09:17 | MHC.SHP ---
Pre-Procedural Eval Section B Chief Complaint: depression Details of Present Illness: recurrent bioplar depression Relevant Social History: None Present Medications: see Short Stay [facility] assessment History of Previous Operations: Relevant previous surgery/procedure and date(s) (orthopedic surgery ect ) Allergies: Allergies Allergy/AdvReac Type Severity Reaction Status Date / Time adhesive tape [ADHESIVE TAPE] Allergy Unknown unknown Verified 11/18/20 15:07 bee pollen [BEE STINGS] Allergy Unknown anaphylaxis Verified 11/18/20 15:07 Iodinated Contrast Media Allergy Unknown unknown Verified 11/18/20 15:07 [CONTRAST, IV] metaxalone [From SKELAXIN] Allergy Unknown unknown Verified 11/18/20 15:07 monocryl/vicryl sutures Allergy Unknown unknown Verified 11/18/20 15:07 morphine [MORPHINE] Allergy Unknown unknown Verified 11/18/20 15:07 moxifloxacin [From AVELOX] Allergy Unknown unknown Verified 11/18/20 15:07 orange [ORANGES] Allergy Unknown anaphylaxis Verified 11/18/20 15:07 red dye [RED DYE] Allergy Unknown unknown Verified 11/18/20 15:07 Sulfa (Sulfonamide Allergy Unknown UNKNOWN Verified 11/18/20 15:07 Antibiotics) [SULFA (SULFONAMIDE ANTIBIOTICS)] lamotrigine [From LAMICTAL] AdvReac Intermediate hx of Verified 11/18/20 15:07 yennifer on doses greater that 200 mg Adhesive Bandages Allergy Unknown Hives Uncoded 11/18/20 15:07 bees/wasps Allergy Unknown Anaphylaxis Uncoded 11/18/20 15:07 ivp contrast dye Allergy Unknown Hives Uncoded 11/18/20 15:07 lychees Allergy Unknown Hives Uncoded 11/18/20 15:07 oranges Allergy Unknown Anaphylaxis Uncoded 11/18/20 15:07 red dyes Allergy Unknown Hives Uncoded 11/18/20 15:07 Review of Systems Sugical H&P ROS: Negative: Cardiovascular and Yes, Specify: Psychiatric (manic dissociative ) Exam Surgical H&P Exam: Normal: Heart and Normal: Lungs Plan Diagnosis/Plan: Unchanged I have reviewed the history and physical and performed a pertinent physical examination on my patient. No changes have occurred unless specified.
--- NOTE | 2021-04-03 09:30 | HO.ECTPROC ---
ECT Procedure Note Diagnosis/Treatment Date of Service: 04/12/21 Diagnosis: Bipolar disorder Treatment: Maintenance Interval Clinical Notes: Patient has been rapid cycling recently severe rejection by her mother denies active suicidal intent ECT Settings Device: THYMATRON DGx Electrode Placement: Right Unilateral Program/Pulse Width: 0.25 Energy Percent: 20 Seizure Duration By EEG (in seconds): 54 Medications Administration General Anesthetic: Etomidate (16) Muscle Relaxant: Succinylcholine (100) Ancillary Medications Analgesics: Torodol - Pre ECT Anti-emetics: Zofran - Pre ECT Miscillaneous Medications: Midazolam Treatment Recommendations Notes: Schedule short course of ECT to help with mood stabilization Pt Tolerated Procedure w/o Issue: Yes
[2021-04-03] MEDS: clonazePAM 1 MG TABLET PO (10:15)
--- NOTE | 2021-04-03 10:30 | PC.NURSE ---
Patient began coughing again with slight wheezes. Dr. Mathias aware with orders for updraft treatment.
[2021-04-03] MEDS: Albuterol/Iprat 2.5/0.5MG 3 ML AMPUL.NEB INHALE (10:39)
--- NOTE | 2021-04-03 11:14 | PC.NURSE ---
patient remains in pacu resting with c/o headache Dr. Mena ordering tylenol
[2021-04-03] MEDS: Acetaminophen 325 MG TABLET 650 MG PO (11:21)
[2021-04-03] MEDS: oxyCODONE HCl Immed Release 5 MG TABLET 10 MG PO (11:57)
== END 2021-04-03 12:29 | disposition home or self-care (01) ==
PROVIDERS: PCP Internal Medicine; Visit Provider Psychiatry & Neurology Psychiatry
PROC: (CPT 90870; principal; 2021-04-03 09:00)
DX: F31.5 Bipolar disorder, current episode depressed, severe, with psychotic features (principal)
CPT/HCPCS: 90870; 94640; J0330; J1885; J2250; J2405

== ENCOUNTER 2021-04-06 06:08 | Day surgery (SDC) | payer OTHER, SELFPAY ==
[2021-04-06] VITALS (8 sets, daily range): BP systolic 98–120; BP diastolic 59–84; PULSE 70–90; RESP 16; TEMP 36.1–36.8; O2SAT 95–98; BMI 20.2; BMI 20.3
--- NOTE | 2021-04-06 06:54 | HO.ANESPROP2 ---
[facility] Active Problems Active Problems: All Active Problems (Updated 11/18/20 @ 17:28 by Kaylyn Goldberg CNM) History of HPV infection (Acute) Well woman exam with routine gynecological exam (Acute) Past Medical History Medical History Anxiety Bipolar 1 disorder Depression Deviated septum History of electroconvulsive therapy Vasovagal episode Surgical History Surgical History History of bunionectomy Social History Social History Smoking Status: Never smoker Second Hand Smoke Exposure: No Are you DNR?: No Advance Directives: No Advance Directives Information Provided: Yes Meds Allergies Allergy/AdvReac Type Severity Reaction Status Date / Time adhesive tape [ADHESIVE TAPE] Allergy Unknown unknown Verified 11/18/20 15:07 bee pollen [BEE STINGS] Allergy Unknown anaphylaxis Verified 11/18/20 15:07 Iodinated Contrast Media Allergy Unknown unknown Verified 11/18/20 15:07 [CONTRAST, IV] metaxalone [From SKELAXIN] Allergy Unknown unknown Verified 11/18/20 15:07 monocryl/vicryl sutures Allergy Unknown unknown Verified 11/18/20 15:07 morphine [MORPHINE] Allergy Unknown unknown Verified 11/18/20 15:07 moxifloxacin [From AVELOX] Allergy Unknown unknown Verified 11/18/20 15:07 orange [ORANGES] Allergy Unknown anaphylaxis Verified 11/18/20 15:07 red dye [RED DYE] Allergy Unknown unknown Verified 11/18/20 15:07 Sulfa (Sulfonamide Allergy Unknown UNKNOWN Verified 11/18/20 15:07 Antibiotics) [SULFA (SULFONAMIDE ANTIBIOTICS)] lamotrigine [From LAMICTAL] AdvReac Intermediate hx of Verified 11/18/20 15:07 yennifer on doses greater that 200 mg Adhesive Bandages Allergy Unknown Hives Uncoded 11/18/20 15:07 bees/wasps Allergy Unknown Anaphylaxis Uncoded 11/18/20 15:07 ivp contrast dye Allergy Unknown Hives Uncoded 11/18/20 15:07 lychees Allergy Unknown Hives Uncoded 11/18/20 15:07 oranges Allergy Unknown Anaphylaxis Uncoded 11/18/20 15:07 red dyes Allergy Unknown Hives Uncoded 11/18/20 15:07 Active Medications: Current Medications Generic Name Dose Route Start Last Admin Trade Name Tonya PRN Reason Stop Dose Admin Lactated Ringer's 1,000 mls @ 20 mls/hr 04/06/21 07:00 Lr IVCONT .Q24H AUGUSTO Home Medications Medication Instructions Recorded Confirmed Last Taken Type Vraylar 6 mg PO DAILY 08/12/20 08/12/20 08/28/20 History albuterol mcg INHALATION 08/12/20 08/26/20 History mcg cetirizine [Zyrtec] 10 mg PO DAILY 08/12/20 08/12/20 08/28/20 History clonazepam 1 mg PO DAILY 08/12/20 08/12/20 08/26/20 History 1 mg clozapine [Clozaril] 50 mg PO BID 08/12/20 08/12/20 08/28/20 History dexmethylphenidate 10 mg PO BID 08/12/20 08/12/20 08/28/20 History diphenhydramine HCl [Banophen] 50 mg PO TID PRN 08/12/20 08/12/20 Unknown History epinephrine 0.1 mg IM Q30M PRN 08/12/20 08/12/20 08/26/20 History 0.1 mg famotidine 40 mg PO BEDTIME 08/12/20 08/12/20 08/28/20 History fluticasone propion-salmeterol 1 inh INHALATION BID 08/12/20 08/12/20 08/28/20 History [Advair Diskus] fluticasone propionate 1 spray INTRANASAL BID 08/12/20 08/12/20 08/28/20 History ipratropium-albuterol 3 ml INHALATION QID 08/12/20 08/12/20 08/26/20 History 3 mL levonorgestrel-ethinyl estrad 1 tab PO DAILY 08/12/20 08/12/20 08/28/20 History metoprolol tartrate 25 mg PO BID 08/12/20 08/12/20 09/12/20 History 0530 prazosin 5 mg PO TID 08/12/20 08/12/20 08/28/20 History temazepam 30 mg PO BEDTIME PRN 08/12/20 08/12/20 08/26/20 History 30 mg topiramate 50 mg PO BID 08/12/20 08/12/20 08/27/20 History zolpidem 10 mg PO BEDTIME PRN 08/12/20 08/12/20 08/26/20 History 10 mg Exam Exam Date and Time: April 06, 2021 0654 Height,Weight and Vital Signs: Height 5 ft 8.5 in Weight 61.235 kg Last Vital Signs Temp 97.7 F 04/06/21 06:17 Pulse 87 04/06/21 06:17 Resp 16 04/06/21 06:17 BP 117/84 04/06/21 06:17 Pulse Ox 97 04/06/21 06:17 Airway Mallampati Class: II TM Dist: >3cm Neck ROM: Full Heart: RRR Lungs: CTA BL Assessment and Plan Assessment Anesthesia Assessment: Anesthesia Plan Discussed and Chart Reviewed Final Anesthetic Review NPO: Yes ASA Class: II Final Preanesthetic Review: No Changes in Pt Med Stat and Consent Obtained/Reviewed Patient Risk: Intermediate Procedure Risk: Intermediate Anesthetic Plan Anesthetic Plan: GA Disposition: Standard PACU
--- NOTE | 2021-04-06 06:58 | MHC.SHP ---
Pre-Procedural Eval Section A The patient is an INPATIENT: No Changes since office visit: No Cold of Flu in the past 2 weeks, No New Medical Problems, No Changes in Medication and No Patient answered all questions The History & Physical has been completed within 30 days and I have reviewed it.: Yes Section B Chief Complaint: depression Allergies: Allergies Allergy/AdvReac Type Severity Reaction Status Date / Time adhesive tape [ADHESIVE TAPE] Allergy Unknown unknown Verified 11/18/20 15:07 bee pollen [BEE STINGS] Allergy Unknown anaphylaxis Verified 11/18/20 15:07 Iodinated Contrast Media Allergy Unknown unknown Verified 11/18/20 15:07 [CONTRAST, IV] metaxalone [From SKELAXIN] Allergy Unknown unknown Verified 11/18/20 15:07 monocryl/vicryl sutures Allergy Unknown unknown Verified 11/18/20 15:07 morphine [MORPHINE] Allergy Unknown unknown Verified 11/18/20 15:07 moxifloxacin [From AVELOX] Allergy Unknown unknown Verified 11/18/20 15:07 orange [ORANGES] Allergy Unknown anaphylaxis Verified 11/18/20 15:07 red dye [RED DYE] Allergy Unknown unknown Verified 11/18/20 15:07 Sulfa (Sulfonamide Allergy Unknown UNKNOWN Verified 11/18/20 15:07 Antibiotics) [SULFA (SULFONAMIDE ANTIBIOTICS)] lamotrigine [From LAMICTAL] AdvReac Intermediate hx of Verified 11/18/20 15:07 yennifer on doses greater that 200 mg Adhesive Bandages Allergy Unknown Hives Uncoded 11/18/20 15:07 bees/wasps Allergy Unknown Anaphylaxis Uncoded 11/18/20 15:07 ivp contrast dye Allergy Unknown Hives Uncoded 11/18/20 15:07 lychees Allergy Unknown Hives Uncoded 11/18/20 15:07 oranges Allergy Unknown Anaphylaxis Uncoded 11/18/20 15:07 red dyes Allergy Unknown Hives Uncoded 11/18/20 15:07 Plan I have reviewed the history and physical and performed a pertinent physical examination on my patient. No changes have occurred unless specified.
--- NOTE | 2021-04-06 06:59 | HO.ECTPROC ---
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 She feels scared that she could end up hospitalized. ECT Settings Device: THYMATRON DGx Electrode Placement: Right Unilateral Program/Pulse Width: 0.25 Energy Percent: 20 Seizure Duration By EEG (in seconds): 50 Medications Administration General Anesthetic: Etomidate (16) Muscle Relaxant: Succinylcholine (100) Ancillary Medications Analgesics: Torodol - Pre ECT Anti-emetics: Zofran - Pre ECT Miscillaneous Medications: Midazolam Airway Management Airway Management: Bag Mask Ventilation Treatment Recommendations No Changes Recommended: No change Electrode Placement: Right Unilateral Program/Pulse Width: 0.25 Energy Percent: 15 Pt Tolerated Procedure w/o Issue: Yes
[2021-04-06] MEDS: Lactated Ringers 1,000 ML 20 ML IVCONT (07:48)
[2021-04-06] MEDS: oxyCODONE HCl Immed Release 5 MG TABLET 10 MG PO (08:44)
[2021-04-06] MEDS: Acetaminophen 325 MG TABLET 650 MG PO (08:45)
== END 2021-04-06 09:04 | disposition home or self-care (01) ==
PROVIDERS: PCP Internal Medicine; Visit Provider Psychiatry & Neurology Psychiatry
PROC: (CPT 90870; principal; 2021-04-06 07:00)
DX: F31.5 Bipolar disorder, current episode depressed, severe, with psychotic features (principal); F98.8 Other specified behavioral and emotional disorders with onset usually occurring in childhood and adolescence; F43.10 Post-traumatic stress disorder, unspecified; F50.9 Eating disorder, unspecified; D64.9 Anemia, unspecified; J45.909 Unspecified asthma, uncomplicated; Z79.51 Long term (current) use of inhaled steroids; Z79.899 Other long term (current) drug therapy
CPT/HCPCS: 90870; J0330; J1885; J2250; J2405

== ENCOUNTER 2021-04-10 06:08 | Day surgery (SDC) | payer OTHER, SELFPAY ==
[2021-04-10] VITALS (8 sets, daily range): BP systolic 105–135; BP diastolic 55–79; PULSE 68–97; RESP 14–20; TEMP 36.4–36.7; O2SAT 95–100; BMI 20.6
--- NOTE | 2021-04-10 07:46 | HO.ANESPROP2 ---
[facility] Active Problems Active Problems: All Active Problems (Updated 11/18/20 @ 17:28 by Kaylyn Goldberg CNM) History of HPV infection (Acute) Well woman exam with routine gynecological exam (Acute) Past Medical History Medical History Anxiety Bipolar 1 disorder Depression Deviated septum History of electroconvulsive therapy Vasovagal episode Surgical History Surgical History History of bunionectomy Social History Social History Are you a primary respiratory care assistant to a significant other at home: No Do you presently have visiting nurse or other home services: No Patient Tobacco Use Status: Never used Tobacco Second Hand Smoke Exposure: No Are you DNR?: No Advance Directives: No Advance Directives Information Provided: Yes Meds Allergies Allergy/AdvReac Type Severity Reaction Status Date / Time adhesive tape [ADHESIVE TAPE] Allergy Unknown unknown Verified 11/18/20 15:07 bee pollen [BEE STINGS] Allergy Unknown anaphylaxis Verified 11/18/20 15:07 Iodinated Contrast Media Allergy Unknown unknown Verified 11/18/20 15:07 [CONTRAST, IV] metaxalone [From SKELAXIN] Allergy Unknown unknown Verified 11/18/20 15:07 monocryl/vicryl sutures Allergy Unknown unknown Verified 11/18/20 15:07 morphine [MORPHINE] Allergy Unknown unknown Verified 11/18/20 15:07 moxifloxacin [From AVELOX] Allergy Unknown unknown Verified 11/18/20 15:07 orange [ORANGES] Allergy Unknown anaphylaxis Verified 11/18/20 15:07 red dye [RED DYE] Allergy Unknown unknown Verified 11/18/20 15:07 Sulfa (Sulfonamide Allergy Unknown UNKNOWN Verified 11/18/20 15:07 Antibiotics) [SULFA (SULFONAMIDE ANTIBIOTICS)] lamotrigine [From LAMICTAL] AdvReac Intermediate hx of Verified 11/18/20 15:07 yennifer on doses greater that 200 mg Adhesive Bandages Allergy Unknown Hives Uncoded 11/18/20 15:07 bees/wasps Allergy Unknown Anaphylaxis Uncoded 11/18/20 15:07 ivp contrast dye Allergy Unknown Hives Uncoded 01/05/21 15:07 lychees Allergy Unknown Hives Uncoded 11/18/20 15:07 oranges Allergy Unknown Anaphylaxis Uncoded 11/18/20 15:07 red dyes Allergy Unknown Hives Uncoded 11/18/20 15:07 Home Medications Medication Instructions Recorded Confirmed Last Taken Type Vraylar 6 mg PO DAILY 08/12/20 08/12/20 08/28/20 History albuterol mcg INHALATION 08/12/20 08/26/20 History mcg cetirizine [Zyrtec] 10 mg PO DAILY 08/12/20 08/12/20 08/28/20 History clonazepam 1 mg PO DAILY 08/12/20 08/12/20 08/26/20 History 1 mg clozapine [Clozaril] 50 mg PO BID 08/12/20 08/12/20 08/28/20 History dexmethylphenidate 10 mg PO BID 08/12/20 08/12/20 08/28/20 History diphenhydramine HCl [Banophen] 50 mg PO TID PRN 08/12/20 08/12/20 Unknown History epinephrine 0.1 mg IM Q30M PRN 08/12/20 08/12/20 08/26/20 History 0.1 mg famotidine 40 mg PO BEDTIME 08/12/20 08/12/20 08/28/20 History fluticasone propion-salmeterol 1 inh INHALATION BID 08/12/20 08/12/20 08/28/20 History [Advair Diskus] fluticasone propionate 1 spray INTRANASAL BID 08/12/20 08/12/20 08/28/20 History ipratropium-albuterol 3 ml INHALATION QID 08/12/20 08/12/20 08/26/20 History 3 mL levonorgestrel-ethinyl estrad 1 tab PO DAILY 08/12/20 08/12/20 08/28/20 History metoprolol tartrate 25 mg PO BID 08/12/20 08/12/20 09/12/20 History 0530 prazosin 5 mg PO TID 08/12/20 08/12/20 08/28/20 History temazepam 30 mg PO BEDTIME PRN 08/12/20 08/12/20 08/26/20 History 30 mg topiramate 50 mg PO BID 09/08/12/20 08/27/20 History zolpidem 10 mg PO BEDTIME PRN 08/12/20 08/12/20 08/26/20 History 10 mg Exam Exam Date and Time: April 10, 2021 0746 Height,Weight and Vital Signs: Height 5 ft 8 in Weight 135 lb 9.985 oz Last Vital Signs Temp 97.6 F 04/10/21 07:02 Pulse 97 04/10/21 07:02 Resp 17 04/10/21 07:02 BP 105/63 04/10/21 07:02 Pulse Ox 100 04/10/21 07:02 Airway Mallampati Class: I TM Dist: >3cm Neck ROM: Full Loose/Missing/Broken Teeth: No Heart: RRR Lungs: NL Assessment and Plan Assessment Anesthesia Assessment: Anesthesia Plan Discussed and Chart Reviewed Final Anesthetic Review NPO: Yes ASA Class: II and III Final Preanesthetic Review: No Changes in Pt Med Stat, Meds/Allgs Chart Reviewed, Consent Obtained/Reviewed and Anes Risks/Benef Reviewed Patient Risk: Low Procedure Risk: Low Anesthetic Plan Anesthetic Plan: GA Disposition: Standard PACU
--- NOTE | 2021-04-10 07:46 | MHC.SHP ---
Pre-Procedural Eval Section A The patient is an INPATIENT: No Changes since office visit: Yes Changes in Medication and Yes Patient answered all questions; No Cold of Flu in the past 2 weeks and No New Medical Problems The History & Physical has been completed within 30 days and I have reviewed it.: Yes Section B Chief Complaint: depression Allergies: Allergies Allergy/AdvReac Type Severity Reaction Status Date / Time adhesive tape [ADHESIVE TAPE] Allergy Unknown unknown Verified 11/18/20 15:07 bee pollen [BEE STINGS] Allergy Unknown anaphylaxis Verified 11/18/20 15:07 Iodinated Contrast Media Allergy Unknown unknown Verified 11/18/20 15:07 [CONTRAST, IV] metaxalone [From SKELAXIN] Allergy Unknown unknown Verified 11/18/20 15:07 monocryl/vicryl sutures Allergy Unknown unknown Verified 11/18/20 15:07 morphine [MORPHINE] Allergy Unknown unknown Verified 11/18/20 15:07 moxifloxacin [From AVELOX] Allergy Unknown unknown Verified 11/18/20 15:07 orange [ORANGES] Allergy Unknown anaphylaxis Verified 11/18/20 15:07 red dye [RED DYE] Allergy Unknown unknown Verified 11/18/20 15:07 Sulfa (Sulfonamide Allergy Unknown UNKNOWN Verified 11/18/20 15:07 Antibiotics) [SULFA (SULFONAMIDE ANTIBIOTICS)] lamotrigine [From LAMICTAL] AdvReac Intermediate hx of Verified 11/18/20 15:07 yennifer on doses greater that 200 mg Adhesive Bandages Allergy Unknown Hives Uncoded 11/18/20 15:07 bees/wasps Allergy Unknown Anaphylaxis Uncoded 11/18/20 15:07 ivp contrast dye Allergy Unknown Hives Uncoded 11/18/20 15:07 lychees Allergy Unknown Hives Uncoded 11/18/20 15:07 oranges Allergy Unknown Anaphylaxis Uncoded 11/18/20 15:07 red dyes Allergy Unknown Hives Uncoded 11/18/20 15:07 Plan I have reviewed the history and physical and performed a pertinent physical examination on my patient. No changes have occurred unless specified.
--- NOTE | 2021-04-10 08:04 | HO.ECTPROC ---
ECT Procedure Note Diagnosis/Treatment Date of Service: 04/10/21 Diagnosis: Bipolar disorder Previous ECT Date: 04/06/21 Treatment: Maintenance Interval Clinical Notes: some decrease cycling denies active si ECT Settings Device: THYMATRON DGx Electrode Placement: Right Unilateral Program/Pulse Width: 0.25 Energy Percent: 20 Seizure Duration By EEG (in seconds): 51 Medications Administration General Anesthetic: Etomidate (16) Muscle Relaxant: Succinylcholine (100) Ancillary Medications Analgesics: Torodol - Pre ECT Anti-emetics: Zofran - Pre ECT Miscillaneous Medications: Midazolam Airway Management Airway Management: Bag Mask Ventilation Treatment Recommendations No Changes Recommended: No change Notes: f/u scheduled
[2021-04-10] MEDS: Acetaminophen 325 MG TABLET 650 MG PO (08:42)
[2021-04-10] MEDS: oxyCODONE HCl Immed Release 5 MG TABLET 10 MG PO (08:42)
== END 2021-04-10 09:39 | disposition home or self-care (01) ==
PROVIDERS: PCP Internal Medicine; Visit Provider Psychiatry & Neurology Psychiatry
PROC: (CPT 90870; principal; 2021-04-10 15:00)
DX: F31.9 Bipolar disorder, unspecified (principal)
CPT/HCPCS: 90870; J0330; J1885; J2250; J2405

== ENCOUNTER 2021-04-20 06:07 | Day surgery (SDC) | payer OTHER, SELFPAY ==
[2021-04-20] VITALS (7 sets, daily range): BP systolic 105–119; BP diastolic 50–82; PULSE 74–116; RESP 16–20; TEMP 36.6–36.8; O2SAT 97–100; BMI 20.5
--- NOTE | 2021-04-20 06:58 | P.CONAN_ITS ---
[facility] Active Problems Active Problems: All Active Problems (Updated 11/18/20 @ 17:28 by Kaylyn bowden CNM) History of HPV infection (Acute) Well woman exam with routine gynecological exam (Acute) Past Medical History Medical History Anxiety Bipolar 1 disorder Depression Deviated septum History of electroconvulsive therapy Vasovagal episode Surgical History Surgical History History of bunionectomy Social History Social History Are you a primary career services coordinator to a significant other at home: No Do you presently have visiting nurse or other home services: No Patient Tobacco Use Status: Never used Tobacco Second Hand Smoke Exposure: No Are you DNR?: No Advance Directives: No Advance Directives Information Provided: Yes Meds Allergies Allergy/AdvReac Type Severity Reaction Status Date / Time adhesive tape [ADHESIVE TAPE] Allergy Unknown unknown Verified 11/18/20 15:07 bee pollen [BEE STINGS] Allergy Unknown anaphylaxis Verified 11/18/20 15:07 Iodinated Contrast Media Allergy Unknown unknown Verified 11/18/20 15:07 [CONTRAST, IV] metaxalone [From SKELAXIN] Allergy Unknown unknown Verified 11/18/20 15:07 monocryl/vicryl sutures Allergy Unknown unknown Verified 11/18/20 15:07 morphine [MORPHINE] Allergy Unknown unknown Verified 11/18/20 15:07 moxifloxacin [From AVELOX] Allergy Unknown unknown Verified 11/18/20 15:07 orange [ORANGES] Allergy Unknown anaphylaxis Verified 11/18/20 15:07 red dye [RED DYE] Allergy Unknown unknown Verified 11/18/20 15:07 Sulfa (Sulfonamide Allergy Unknown UNKNOWN Verified 11/18/20 15:07 Antibiotics) [SULFA (SULFONAMIDE ANTIBIOTICS)] lamotrigine [From LAMICTAL] AdvReac Intermediate hx of Verified 11/18/20 15:07 yennifer on doses greater that 200 mg Adhesive Bandages Allergy Unknown Hives Uncoded 11/18/20 15:07 bees/wasps Allergy Unknown Anaphylaxis Uncoded 11/18/20 15:07 ivp contrast dye Allergy Unknown Hives Uncoded 11/18/20 15:07 lychees Allergy Unknown Hives Uncoded 11/18/20 15:07 oranges Allergy Unknown Anaphylaxis Uncoded 11/18/20 15:07 red dyes Allergy Unknown Hives Uncoded 11/18/20 15:07 Active Medications: Current Medications Generic Name Dose Route Start Last Admin Trade Name Tonya PRN Reason Stop Dose Admin Lactated Ringer's 1,000 mls @ 50 mls/hr 04/20/21 07:00 Lr IVCONT .Q20H [place] Home Medications Medication Instructions Recorded Confirmed Last Taken Type Vraylar 6 mg PO DAILY 08/12/20 08/12/20 08/28/20 History albuterol mcg INHALATION 08/12/20 08/26/20 History mcg cetirizine [Zyrtec] 10 mg PO DAILY 08/12/20 08/12/20 08/28/20 History clonazepam 1 mg PO DAILY 08/12/20 08/12/20 08/26/20 History 1 mg clozapine [Clozaril] 50 mg PO BID 08/12/20 08/12/20 08/28/20 History dexmethylphenidate 10 mg PO BID 08/12/20 08/12/20 08/28/20 History diphenhydramine HCl [Banophen] 50 mg PO TID PRN 08/12/20 08/12/20 Unknown History epinephrine 0.1 mg IM Q30M PRN 08/12/20 08/12/20 08/26/20 History 0.1 mg famotidine 40 mg PO BEDTIME 08/12/20 08/12/20 08/28/20 History fluticasone propion-salmeterol 1 inh INHALATION BID 08/12/20 08/12/20 08/28/20 History [Advair Diskus] fluticasone propionate 1 spray INTRANASAL BID 08/12/20 08/12/20 08/28/20 History ipratropium-albuterol 3 ml INHALATION QID 08/12/20 08/12/20 08/26/20 History 3 mL levonorgestrel-ethinyl estrad 1 tab PO DAILY 08/12/20 08/12/20 08/28/20 History metoprolol tartrate 25 mg PO BID 08/12/20 08/12/20 09/12/20 History 0530 prazosin 5 mg PO TID 08/12/20 08/12/20 08/28/20 History temazepam 30 mg PO BEDTIME PRN 08/12/20 08/12/20 08/26/20 History 30 mg topiramate 50 mg PO BID 08/12/20 08/12/20 08/27/20 History zolpidem 10 mg PO BEDTIME PRN 08/12/20 08/12/20 08/26/20 History 10 mg Exam Exam Date and Time: April 20, 2021 0658 Airway Mallampati Class: II TM Dist: >3cm Neck ROM: Full Heart: RRR Lungs: CTa Assessment and Plan Assessment Anesthesia Assessment: Anesthesia Plan Discussed and Chart Reviewed Final Anesthetic Review NPO: Yes ASA Class: III Final Preanesthetic Review: No Changes in Pt Med Stat and Consent Obtained/Reviewed Patient Risk: Intermediate Procedure Risk: Intermediate Anesthetic Plan Anesthetic Plan: GA Disposition: Standard PACU
--- NOTE | 2021-04-20 07:06 | MHC.SHP ---
Pre-Procedural Eval Section A The patient is an INPATIENT: No Changes since office visit: No Cold of Flu in the past 2 weeks, No New Medical Problems, No Changes in Medication and No Patient answered all questions The History & Physical has been completed within 30 days and I have reviewed it.: No Section B Chief Complaint: Severe Depression Allergies: Allergies Allergy/AdvReac Type Severity Reaction Status Date / Time adhesive tape [ADHESIVE TAPE] Allergy Unknown unknown Verified 11/18/20 15:07 bee pollen [BEE STINGS] Allergy Unknown anaphylaxis Verified 11/18/20 15:07 Iodinated Contrast Media Allergy Unknown unknown Verified 11/18/20 15:07 [CONTRAST, IV] metaxalone [From SKELAXIN] Allergy Unknown unknown Verified 11/18/20 15:07 monocryl/vicryl sutures Allergy Unknown unknown Verified 11/18/20 15:07 morphine [MORPHINE] Allergy Unknown unknown Verified 11/18/20 15:07 moxifloxacin [From AVELOX] Allergy Unknown unknown Verified 11/18/20 15:07 orange [ORANGES] Allergy Unknown anaphylaxis Verified 11/18/20 15:07 red dye [RED DYE] Allergy Unknown unknown Verified 11/18/20 15:07 Sulfa (Sulfonamide Allergy Unknown UNKNOWN Verified 11/18/20 15:07 Antibiotics) [SULFA (SULFONAMIDE ANTIBIOTICS)] lamotrigine [From LAMICTAL] AdvReac Intermediate hx of Verified 11/18/20 15:07 yennifer on doses greater that 200 mg Adhesive Bandages Allergy Unknown Hives Uncoded 11/18/20 15:07 bees/wasps Allergy Unknown Anaphylaxis Uncoded 11/18/20 15:07 ivp contrast dye Allergy Unknown Hives Uncoded 11/18/20 15:07 lychees Allergy Unknown Hives Uncoded 11/18/20 15:07 oranges Allergy Unknown Anaphylaxis Uncoded 11/18/20 15:07 red dyes Allergy Unknown Hives Uncoded 11/18/20 15:07 Plan I have reviewed the history and physical and performed a pertinent physical examination on my patient. No changes have occurred unless specified.
--- NOTE | 2021-04-20 07:07 | HO.ECTPROC ---
ECT Procedure Note Diagnosis/Treatment Date of Service: 04/20/21 Treatment: Maintenance ECT Settings Device: THYMATRON DGx
--- NOTE | 2021-04-20 07:29 | HO.ECTPROC ---
ECT Procedure Note Diagnosis/Treatment Date of Service: 04/20/21 Previous ECT Date: 04/06/21 Treatment: Maintenance Interval Clinical Notes: The patient's mood is less depressed, she seems to be at her mild hypomanic baseline state. She complaints of poor attention and memory in the last week. She burned herself accidentally with the stove since she forgot it let it on. ECT Settings Device: THYMATRON DGx Electrode Placement: Right Unilateral Program/Pulse Width: 0.25 Energy Percent: 15 Seizure Duration By EEG (in seconds): 55 Medications Administration General Anesthetic: Etomidate (16) Muscle Relaxant: Succinylcholine (100) Ancillary Medications Analgesics: Torodol - Pre ECT Anti-emetics: Zofran - Pre ECT Miscillaneous Medications: Propofol Airway Management Airway Management: Bag Mask Ventilation Treatment Recommendations No Changes Recommended: No change Pt Tolerated Procedure w/o Issue: Yes
[2021-04-20] MEDS: Acetaminophen 325 MG TABLET 650 MG PO (08:10)
[2021-04-20] MEDS: oxyCODONE HCl Immed Release 5 MG TABLET 10 MG PO (08:10)
== END 2021-04-20 09:00 | disposition home or self-care (01) ==
PROVIDERS: PCP Internal Medicine; Visit Provider Psychiatry & Neurology Psychiatry
PROC: (CPT 90870; principal; 2021-04-20 07:30)
DX: F33.3 Major depressive disorder, recurrent, severe with psychotic symptoms (principal)
CPT/HCPCS: 90870; J0330; J1885; J2250; J2405

== ENCOUNTER 2021-05-06 06:10 | Day surgery (SDC) | payer OTHER, SELFPAY ==
[2021-05-06] VITALS (8 sets, daily range): BP systolic 101–131; BP diastolic 50–71; PULSE 75–87; RESP 16–19; TEMP 36.4–37.2; O2SAT 96–99; BMI 20.5
--- NOTE | 2021-05-06 06:49 | P.CONAN_ITS ---
[facility] Active Problems Active Problems: All Active Problems (Updated 11/18/20 @ 17:28 by Kaylyn bowden CNM) History of HPV infection (Acute) Well woman exam with routine gynecological exam (Acute) Past Medical History Medical History Anxiety Bipolar 1 disorder Depression Deviated septum History of electroconvulsive therapy Vasovagal episode Surgical History Surgical History History of bunionectomy Social History Social History Are you a primary intensive care unit nurse to a significant other at home: No Do you presently have visiting nurse or other home services: No Patient Tobacco Use Status: Never used Tobacco Second Hand Smoke Exposure: No Are you DNR?: No Advance Directives: No Advance Directives Information Provided: Yes Recently lost weight without trying: No Meds Allergies Allergy/AdvReac Type Severity Reaction Status Date / Time adhesive tape [ADHESIVE TAPE] Allergy Unknown unknown Verified 11/18/20 15:07 bee pollen [BEE STINGS] Allergy Unknown anaphylaxis Verified 11/18/20 15:07 Iodinated Contrast Media Allergy Unknown unknown Verified 11/18/20 15:07 [CONTRAST, IV] metaxalone [From SKELAXIN] Allergy Unknown unknown Verified 11/18/20 15:07 monocryl/vicryl sutures Allergy Unknown unknown Verified 11/18/20 15:07 morphine [MORPHINE] Allergy Unknown unknown Verified 11/18/20 15:07 moxifloxacin [From AVELOX] Allergy Unknown unknown Verified 11/18/20 15:07 orange [ORANGES] Allergy Unknown anaphylaxis Verified 11/18/20 15:07 red dye [RED DYE] Allergy Unknown unknown Verified 11/18/20 15:07 Sulfa (Sulfonamide Allergy Unknown UNKNOWN Verified 11/18/20 15:07 Antibiotics) [SULFA (SULFONAMIDE ANTIBIOTICS)] lamotrigine [From LAMICTAL] AdvReac Intermediate hx of Verified 11/18/20 15:07 yennifer on doses greater that 200 mg Adhesive Bandages Allergy Unknown Hives Uncoded 11/18/20 15:07 bees/wasps Allergy Unknown Anaphylaxis Uncoded 11/18/20 15:07 ivp contrast dye Allergy Unknown Hives Uncoded 11/18/20 15:07 lychees Allergy Unknown Hives Uncoded 11/18/20 15:07 oranges Allergy Unknown Anaphylaxis Uncoded 11/18/20 15:07 red dyes Allergy Unknown Hives Uncoded 11/18/20 15:07 Active Medications: Current Medications Generic Name Dose Route Start Last Admin Trade Name Freq PRN Reason Stop Dose Admin Acetaminophen 650 mg 05/06/21 06:48 Acetaminophen 325 Mg Tablet PO ONCE PRN Pain, Mild (Pain Scale 1-3) Sodium Chloride 1,000 mls @ 50 mls/hr 05/06/21 07:00 Ns IVCONT .Q20H [place] Oxycodone HCl 10 mg 05/06/21 06:48 Oxycodone Hcl Immed Release 5 Mg Tablet PO ONCE PRN Pain, Severe (Pain Scale 7-10) Home Medications Medication Instructions Recorded Confirmed Last Taken Type Vraylar 6 mg PO DAILY 08/12/20 08/12/20 08/28/20 History albuterol mcg INHALATION 08/12/20 08/26/20 History mcg cetirizine [Zyrtec] 10 mg PO DAILY 08/12/20 08/12/20 08/28/20 History clonazepam 1 mg PO DAILY 08/12/20 08/12/20 08/26/20 History 1 mg clozapine [Clozaril] 50 mg PO BID 08/12/20 08/12/20 08/28/20 History dexmethylphenidate 10 mg PO BID 08/12/20 08/12/20 08/28/20 History diphenhydramine HCl [Banophen] 50 mg PO TID PRN 08/12/20 08/12/20 Unknown History epinephrine 0.1 mg IM Q30M PRN 08/12/20 08/12/20 08/26/20 History 0.1 mg famotidine 40 mg PO BEDTIME 08/12/20 08/12/20 08/28/20 History fluticasone propion-salmeterol 1 inh INHALATION BID 08/12/20 08/12/20 08/28/20 History [Advair Diskus] fluticasone propionate 1 spray INTRANASAL BID 08/12/20 08/12/20 08/28/20 History ipratropium-albuterol 3 ml INHALATION QID 08/12/20 08/12/20 08/26/20 History 3 mL levonorgestrel-ethinyl estrad 1 tab PO DAILY 08/12/20 08/12/20 08/28/20 History metoprolol tartrate 25 mg PO BID 08/12/20 08/12/20 09/12/20 History 0530 prazosin 5 mg PO TID 08/12/20 08/12/20 08/28/20 History temazepam 30 mg PO BEDTIME PRN 08/12/20 08/12/20 08/26/20 History 30 mg topiramate 50 mg PO BID 08/12/20 08/12/20 08/27/20 History zolpidem 10 mg PO BEDTIME PRN 08/12/20 08/12/20 08/26/20 History 10 mg Exam Exam Date and Time: May 06, 2021 0649 Height,Weight and Vital Signs: Height 5 ft 8 in Weight 61.235 kg Last Vital Signs Temp 97.5 F 05/06/21 06:18 Pulse 81 05/06/21 06:18 Resp 18 05/06/21 06:18 BP 131/71 05/06/21 06:18 Pulse Ox 99 05/06/21 06:18 Airway Mallampati Class: II TM Dist: >3cm Neck ROM: Full Heart: rrr Lungs: cta Assessment and Plan Assessment Anesthesia Assessment: Anesthesia Plan Discussed and Chart Reviewed Final Anesthetic Review NPO: Yes ASA Class: III Final Preanesthetic Review: No Changes in Pt Med Stat and Consent Obtained/R eviewed Patient Risk: Intermediate Procedure Risk: Intermediate Anesthetic Plan Anesthetic Plan: MAC: Disposition: Standard PACU
--- NOTE | 2021-05-06 07:06 | MHC.SHP ---
Pre-Procedural Eval Section A The patient is an INPATIENT: No Changes since office visit: Yes Changes in Medication and Yes Patient answered all questions; No Cold of Flu in the past 2 weeks and No New Medical Problems The History & Physical has been completed within 30 days and I have reviewed it.: Yes Section B Chief Complaint: major depression Allergies: Allergies Allergy/AdvReac Type Severity Reaction Status Date / Time adhesive tape [ADHESIVE TAPE] Allergy Unknown unknown Verified 11/18/20 15:07 bee pollen [BEE STINGS] Allergy Unknown anaphylaxis Verified 11/18/20 15:07 Iodinated Contrast Media Allergy Unknown unknown Verified 11/18/20 15:07 [CONTRAST, IV] metaxalone [From SKELAXIN] Allergy Unknown unknown Verified 11/18/20 15:07 monocryl/vicryl sutures Allergy Unknown unknown Verified 11/18/20 15:07 morphine [MORPHINE] Allergy Unknown unknown Verified 11/18/20 15:07 moxifloxacin [From AVELOX] Allergy Unknown unknown Verified 11/18/20 15:07 orange [ORANGES] Allergy Unknown anaphylaxis Verified 11/18/20 15:07 red dye [RED DYE] Allergy Unknown unknown Verified 11/18/20 15:07 Sulfa (Sulfonamide Allergy Unknown UNKNOWN Verified 11/18/20 15:07 Antibiotics) [SULFA (SULFONAMIDE ANTIBIOTICS)] lamotrigine [From LAMICTAL] AdvReac Intermediate hx of Verified 11/18/20 15:07 yennifer on doses greater that 200 mg Adhesive Bandages Allergy Unknown Hives Uncoded 11/18/20 15:07 bees/wasps Allergy Unknown Anaphylaxis Uncoded 11/18/20 15:07 ivp contrast dye Allergy Unknown Hives Uncoded 11/18/20 15:07 lychees Allergy Unknown Hives Uncoded 11/18/20 15:07 oranges Allergy Unknown Anaphylaxis Uncoded 11/18/20 15:07 red dyes Allergy Unknown Hives Uncoded 11/18/20 15:07 Plan I have reviewed the history and physical and performed a pertinent physical examination on my patient. No changes have occurred unless specified.
--- NOTE | 2021-05-06 07:07 | HO.ECTPROC ---
ECT Procedure Note Diagnosis/Treatment Date of Service: 05/06/21 Diagnosis: Bipolar disorder Previous ECT Date: 04/20/21 Treatment: Maintenance Interval Clinical Notes: somewhat better cycling yennifer depressive states less intensely in school chronic demoralization ECT Settings Device: THYMATRON DGx Electrode Placement: Right Unilateral Program/Pulse Width: 0.25 Energy Percent: 15 Seizure Duration By EEG (in seconds): 90 Medications Administration General Anesthetic: Etomidate (16) Muscle Relaxant: Succinylcholine (100) Ancillary Medications Analgesics: Torodol - Pre ECT Anti-emetics: Zofran - Pre ECT Miscillaneous Medications: Propofol (30) and Midazolam (2mg) Airway Management Airway Management: Bag Mask Ventilation Treatment Recommendations No Changes Recommended: No change Notes: ck clozaril level f/u tx 2 weeks Pt Tolerated Procedure w/o Issue: Yes
[2021-05-06] MEDS: Acetaminophen 325 MG TABLET 650 MG PO (08:20)
[2021-05-06] MEDS: oxyCODONE HCl Immed Release 5 MG TABLET 10 MG PO (08:20)
[2021-05-10 09:26] LABS: Clozapine (Clozaril) <10 mcg/L; Norclozapine <10 mcg/L (25-400)
== END 2021-05-06 08:55 | disposition home or self-care (01) ==
PROVIDERS: PCP Internal Medicine; Visit Provider Psychiatry & Neurology Psychiatry
PROC: (CPT 90870; principal; 2021-05-06 07:30)
DX: F31.9 Bipolar disorder, unspecified (principal)
CPT/HCPCS: 36415; 80159; 90870; J0330; J1885; J2250; J2405

== ENCOUNTER 2021-05-20 06:03 | Day surgery (SDC) | payer OTHER, SELFPAY ==
[2021-05-20] VITALS (8 sets, daily range): BP systolic 93–117; BP diastolic 49–79; PULSE 77–89; RESP 16–20; TEMP 36.3–36.7; O2SAT 96–100; BMI 20.9
--- NOTE | 2021-05-20 06:45 | P.CONAN_ITS ---
[facility] Active Problems Active Problems: All Active Problems (Updated 11/18/20 @ 17:28 by Kaylyn bowden CNM) History of HPV infection (Acute) Well woman exam with routine gynecological exam (Acute) Past Medical History Medical History Anxiety Bipolar 1 disorder Depression Deviated septum History of electroconvulsive therapy Vasovagal episode Surgical History Surgical History History of bunionectomy Social History Social History Are you a primary resident care manager to a significant other at home: No Do you presently have visiting nurse or other home services: No Patient Tobacco Use Status: Never used Tobacco Second Hand Smoke Exposure: No Use of substances other than those prescribed or required for medical reasons: No Are you DNR?: No Advance Directives: No Advance Directives Information Provided: Yes Recently lost weight without trying: No Patient : No Meds Allergies Allergy/AdvReac Type Severity Reaction Status Date / Time adhesive tape [ADHESIVE TAPE] Allergy Unknown unknown Verified 11/18/20 15:07 bee pollen [BEE STINGS] Allergy Unknown anaphylaxis Verified 11/18/20 15:07 Iodinated Contrast Media Allergy Unknown unknown Verified 11/18/20 15:07 [CONTRAST, IV] metaxalone [From SKELAXIN] Allergy Unknown unknown Verified 11/18/20 15:07 monocryl/vicryl sutures Allergy Unknown unknown Verified 11/18/20 15:07 morphine [MORPHINE] Allergy Unknown unknown Verified 11/18/20 15:07 moxifloxacin [From AVELOX] Allergy Unknown unknown Verified 11/18/20 15:07 orange [ORANGES] Allergy Unknown anaphylaxis Verified 11/18/20 15:07 red dye [RED DYE] Allergy Unknown unknown Verified 11/18/20 15:07 Sulfa (Sulfonamide Allergy Unknown UNKNOWN Verified 11/18/20 15:07 Antibiotics) [SULFA (SULFONAMIDE ANTIBIOTICS)] lamotrigine [From LAMICTAL] AdvReac Intermediate hx of Verified 11/18/20 15:07 yennifer on doses greater that 200 mg Adhesive Bandages Allergy Unknown Hives Uncoded 11/18/20 15:07 bees/wasps Allergy Unknown Anaphylaxis Uncoded 11/18/20 15:07 ivp contrast dye Allergy Unknown Hives Uncoded 11/18/20 15:07 lychees Allergy Unknown Hives Uncoded 11/18/20 15:07 oranges Allergy Unknown Anaphylaxis Uncoded 11/18/20 15:07 red dyes Allergy Unknown Hives Uncoded 11/18/20 15:07 Active Medications: Current Medications Generic Name Dose Route Start Last Admin Trade Name Freq PRN Reason Stop Dose Admin Lactated Ringer's 1,000 mls @ 50 mls/hr 05/20/21 06:45 Lr IVCONT .Q20H [facility] Home Medications Medication Instructions Recorded Confirmed Last Taken Type Vraylar 6 mg PO DAILY 08/12/20 08/12/20 08/28/20 History albuterol mcg INHALATION 08/12/20 08/26/20 History mcg cetirizine [Zyrtec] 10 mg PO DAILY 08/12/20 08/12/20 08/28/20 History clonazepam 1 mg PO DAILY 08/12/20 08/12/20 08/26/20 History 1 mg clozapine [Clozaril] 50 mg PO BID 08/12/20 08/12/20 08/28/20 History dexmethylphenidate 10 mg PO BID 08/12/20 08/12/20 08/28/20 History diphenhydramine HCl [Banophen] 50 mg PO TID PRN 08/12/20 08/12/20 Unknown History epinephrine 0.1 mg IM Q30M PRN 08/12/20 08/12/20 08/26/20 History 0.1 mg famotidine 40 mg PO BEDTIME 08/12/20 08/12/20 08/28/20 History fluticasone propion-salmeterol 1 inh INHALATION BID 08/12/20 08/12/20 08/28/20 History [Advair Diskus] fluticasone propionate 1 spray INTRANASAL BID 08/12/20 08/12/20 08/28/20 History ipratropium-albuterol 3 ml INHALATION QID 08/12/20 08/12/20 08/26/20 History 3 mL levonorgestrel-ethinyl estrad 1 tab PO DAILY 08/12/20 08/12/20 08/28/20 History metoprolol tartrate 25 mg PO BID 08/12/20 08/12/20 09/12/20 History 0530 prazosin 5 mg PO TID 08/12/20 08/12/20 08/28/20 History temazepam 30 mg PO BEDTIME PRN 08/12/20 08/12/20 08/26/20 History 30 mg topiramate 50 mg PO BID 08/12/20 08/12/20 08/27/20 History zolpidem 10 mg PO BEDTIME PRN 08/12/20 08/12/20 08/26/20 History 10 mg Exam Exam Date and Time: May 20, 2021 0645 Height,Weight and Vital Signs: Height 5 ft 8 in Weight 62.596 kg Last Vital Signs Temp 97.3 F 05/20/21 06:36 Pulse 89 05/20/21 06:36 Resp 16 05/20/21 06:36 BP 117/73 05/20/21 06:36 Pulse Ox 98 05/20/21 06:36 Airway Mallampati Class: II TM Dist: >3cm Neck ROM: Full Heart: RRR Lungs: CTA Assessment and Plan Assessment Anesthesia Assessment: Anesthesia Plan Discussed and Chart Reviewed Final Anesthetic Review NPO: Yes ASA Class: III Final Preanesthetic Review: No Changes in Pt Med Stat and Consent Obtained/Reviewed Patient Risk: Intermediate Procedure Risk: Intermediate Anesthetic Plan Anesthetic Plan: GA Disposition: Standard PACU
--- NOTE | 2021-05-20 07:04 | MHC.SHP ---
Pre-Procedural Eval Section A Date of Service: 05/20/21 The patient is an INPATIENT: No Changes since office visit: Yes Patient answered all questions; No Cold of Flu in the past 2 weeks, No New Medical Problems and No Changes in Medication The History & Physical has been completed within 30 days and I have reviewed it.: Yes Section B Chief Complaint: major depression Allergies: Allergies Allergy/AdvReac Type Severity Reaction Status Date / Time adhesive tape [ADHESIVE TAPE] Allergy Unknown unknown Verified 11/18/20 15:07 bee pollen [BEE STINGS] Allergy Unknown anaphylaxis Verified 11/18/20 15:07 Iodinated Contrast Media Allergy Unknown unknown Verified 11/18/20 15:07 [CONTRAST, IV] metaxalone [From SKELAXIN] Allergy Unknown unknown Verified 11/18/20 15:07 monocryl/vicryl sutures Allergy Unknown unknown Verified 11/18/20 15:07 morphine [MORPHINE] Allergy Unknown unknown Verified 11/18/20 15:07 moxifloxacin [From AVELOX] Allergy Unknown unknown Verified 11/18/20 15:07 orange [ORANGES] Allergy Unknown anaphylaxis Verified 11/18/20 15:07 red dye [RED DYE] Allergy Unknown unknown Verified 11/18/20 15:07 Sulfa (Sulfonamide Allergy Unknown UNKNOWN Verified 11/18/20 15:07 Antibiotics) [SULFA (SULFONAMIDE ANTIBIOTICS)] lamotrigine [From LAMICTAL] AdvReac Intermediate hx of Verified 11/18/20 15:07 yennifer on doses greater that 200 mg Adhesive Bandages Allergy Unknown Hives Uncoded 11/18/20 15:07 bees/wasps Allergy Unknown Anaphylaxis Uncoded 11/18/20 15:07 ivp contrast dye Allergy Unknown Hives Uncoded 11/18/20 15:07 lychees Allergy Unknown Hives Uncoded 11/18/20 15:07 oranges Allergy Unknown Anaphylaxis Uncoded 11/18/20 15:07 red dyes Allergy Unknown Hives Uncoded 11/18/20 15:07 Plan I have reviewed the history and physical and performed a pertinent physical examination on my patient. No changes have occurred unless specified.
--- NOTE | 2021-05-20 07:06 | HO.ECTPROC ---
ECT Procedure Note Diagnosis/Treatment Date of Service: 05/20/21 Diagnosis: Bipolar disorder Previous ECT Date: 05/06/21 Treatment: Maintenance Interval Clinical Notes: less labile stress with relationship with mother ECT Settings Device: THYMATRON DGx Electrode Placement: Right Unilateral Program/Pulse Width: 0.25 Energy Percent: 15 Seizure Duration By EEG (in seconds): 63 Medications Administration General Anesthetic: Etomidate (16) Muscle Relaxant: Succinylcholine (100) Ancillary Medications Analgesics: Torodol - Pre ECT Anti-emetics: Zofran - Pre ECT Miscillaneous Medications: Propofol and Midazolam Airway Management Airway Management: Bag Mask Ventilation Treatment Recommendations No Changes Recommended: No change Pt Tolerated Procedure w/o Issue: Yes
[2021-05-20] MEDS: Acetaminophen 325 MG TABLET 650 MG PO (08:08)
[2021-05-20] MEDS: Lactated Ringers 1,000 ML 50 ML IVCONT (08:08)
[2021-05-20] MEDS: oxyCODONE HCl Immed Release 5 MG TABLET 10 MG PO (08:09)
== END 2021-05-20 08:35 | disposition home or self-care (01) ==
PROVIDERS: PCP Internal Medicine; Visit Provider Psychiatry & Neurology Psychiatry
PROC: (CPT 90870; principal; 2021-05-20 07:00)
DX: F31.9 Bipolar disorder, unspecified (principal); Z79.899 Other long term (current) drug therapy; Z88.2 Allergy status to sulfonamides; Z91.041 Radiographic dye allergy status
CPT/HCPCS: 90870; J0330; J1885; J2250; J2405

== ENCOUNTER 2021-06-12 06:10 | Day surgery (SDC) | payer OTHER, SELFPAY ==
--- NOTE | 2021-05-29 08:10 | ECG_ITS ---
Test Reason : PRE OP Blood Pressure : / mmHG Vent. Rate : 083 BPM Atrial Rate : 083 BPM P-R Int : 144 ms QRS Dur : 088 ms QT Int : 330 ms P-R-T Axes : 064 065 067 degrees QTc Int : 388 ms Normal sinus rhythm Prominent U waves and T-U fusion in some leads appearing as prolonged QT Borderine ECG When compared with ECG of 28-NOV-2020 15:12, No significant changes seen Referred By: Robel Mena Electronically Signed By:Arnold Acevedo
[2021-05-29 08:37] LABS: MANUAL DIFF FLAG NO
[2021-05-29 08:40] LABS: Basophils Absolute Auto 0.1 X10*3/uL (0.0-0.2); Basophils Percent Auto 1.2 % (0-2); Eosinophils Absolute Auto 0.2 X10*3/uL (0.0-0.4); Eosinophils Percent Auto 2.6 % (0-4); Hematocrit 33.9 % (37-47); Hemoglobin 11.4 g/dl (12.0-16.0); Imm Gran Abs Auto 0.02 X10*3/uL (0.00-0.03); Imm Gran Pct Auto 0.2 % (0.0-0.4); Lymphocytes Absolute Auto 2.1 X10*3/uL (1.2-4.9); Lymphocytes Percent Auto 25.6 % (20-40); Mean Corpuscular HGB Conc 33.6 g/dl (31.0-35.0); Mean Corpuscular Hemoglobin 29.5 pg (27.0-33.0); Mean Corpuscular Volume 87.8 fL (80-98); Mean Platelet Volume 9.9 fL (9.4-12.3); Monocytes Absolute Auto 0.9 X10*3/uL (0.1-1.2); Monocytes Percent Auto 11.2 % (2-11); Neutrophils Absolute Auto 4.8 X10*3/uL (2.0-8.3); Neutrophils Percent Auto 59.2 % (45-73); Platelet Count 322 X10*3/uL (160-400); Red Blood Count 3.86 X10*6/uL (4.20-5.50); Red Cell Distribution Width 12.5 % (11.0-16.0); White Blood Count 8.1 X10*3/uL (4.8-10.8)
[2021-05-29 09:24] LABS: Alanine Aminotransferase 26 U/L (0-31); Albumin Level 4.4 g/dL (3.5-5.0); Alkaline Phosphatase 51 U/L (39-117); Anion Gap 13 (12-20); Aspartate Amino Transferase 29 U/L (5-31); Bilirubin Total 0.4 mg/dL (0.0-1.0); Blood Urea Nitrogen 7 mg/dL (9-16); Calcium 9.8 mg/dL (8.4-10.2); Carbon Dioxide 25 mmol/L (22-29); Chloride 105 mmol/L (96-108); Estimated Glomerular Filt Rate 52; Glucose Random 89 mg/dL (60-115); Potassium 3.4 mmol/L (3.3-5.1); Sodium 140 mmol/L (135-145); Total Protein 7.5 g/dL (6.5-8.0)
[2021-06-12] VITALS (8 sets, daily range): BP systolic 101–117; BP diastolic 36–79; PULSE 71–90; RESP 16–20; TEMP 36.1–37; O2SAT 97–100; BMI 21.5
--- NOTE | 2021-06-12 07:16 | MHC.SHP ---
Pre-Procedural Eval Section A Date of Service: 06/12/21 The patient is an INPATIENT: No Changes since office visit: Yes Patient answered all questions; No Cold of Flu in the past 2 weeks, No New Medical Problems and No Changes in Medication The History & Physical has been completed within 30 days and I have reviewed it.: Yes Section B Chief Complaint: depression Allergies: Allergies Allergy/AdvReac Type Severity Reaction Status Date / Time adhesive tape [ADHESIVE TAPE] Allergy Unknown unknown Verified 11/18/20 15:07 bee pollen [BEE STINGS] Allergy Unknown anaphylaxis Verified 11/18/20 15:07 Iodinated Contrast Media Allergy Unknown unknown Verified 11/18/20 15:07 [CONTRAST, IV] metaxalone [From SKELAXIN] Allergy Unknown unknown Verified 11/18/20 15:07 monocryl/vicryl sutures Allergy Unknown unknown Verified 11/18/20 15:07 morphine [MORPHINE] Allergy Unknown unknown Verified 11/18/20 15:07 moxifloxacin [From AVELOX] Allergy Unknown unknown Verified 11/18/20 15:07 orange [ORANGES] Allergy Unknown anaphylaxis Verified 11/18/20 15:07 red dye [RED DYE] Allergy Unknown unknown Verified 11/18/20 15:07 Sulfa (Sulfonamide Allergy Unknown UNKNOWN Verified 11/18/20 15:07 Antibiotics) [SULFA (SULFONAMIDE ANTIBIOTICS)] lamotrigine [From LAMICTAL] AdvReac Intermediate hx of Verified 11/18/20 15:07 yennifer on doses greater that 200 mg Adhesive Bandages Allergy Unknown Hives Uncoded 11/18/20 15:07 bees/wasps Allergy Unknown Anaphylaxis Uncoded 11/18/20 15:07 ivp contrast dye Allergy Unknown Hives Uncoded 11/18/20 15:07 lychees Allergy Unknown Hives Uncoded 11/18/20 15:07 oranges Allergy Unknown Anaphylaxis Uncoded 11/18/20 15:07 red dyes Allergy Unknown Hives Uncoded 11/18/20 15:07 Plan I have reviewed the history and physical and performed a pertinent physical examination on my patient. No changes have occurred unless specified.
--- NOTE | 2021-06-12 07:19 | P.CONAN_ITS ---
HPI - Anesthesia Eval Consult details Narrative: 36 yo female patient for ECT PMFSH Active Problems Active Problems: All Active Problems (Updated 11/18/20 @ 17:28 by Kaylyn Goldberg CNM) History of HPV infection (Acute) Well woman exam with routine gynecological exam (Acute) Past Medical History Medical History Anxiety Bipolar 1 disorder Depression Deviated septum History of electroconvulsive therapy Vasovagal episode Family History Family history of problems with anesthesia: No Surgical History Surgical History History of bunionectomy History of Problems with Anesthesia: No Social History Social History Are you a primary skin care instructor to a significant other at home: No Do you presently have visiting nurse or other home services: No Patient Tobacco Use Status: Never used Tobacco Second Hand Smoke Exposure: No Are you DNR?: No Advance Directives: No Advance Directives Information Provided: Yes Meds Allergies Allergy/AdvReac Type Severity Reaction Status Date / Time adhesive tape [ADHESIVE TAPE] Allergy Unknown unknown Verified 11/18/20 15:07 bee pollen [BEE STINGS] Allergy Unknown anaphylaxis Verified 11/18/20 15:07 Iodinated Contrast Media Allergy Unknown unknown Verified 11/18/20 15:07 [CONTRAST, IV] metaxalone [From SKELAXIN] Allergy Unknown unknown Verified 11/18/20 15:07 monocryl/vicryl sutures Allergy Unknown unknown Verified 11/18/20 15:07 morphine [MORPHINE] Allergy Unknown unknown Verified 11/18/20 15:07 moxifloxacin [From AVELOX] Allergy Unknown unknown Verified 11/18/20 15:07 orange [ORANGES] Allergy Unknown anaphylaxis Verified 11/18/20 15:07 red dye [RED DYE] Allergy Unknown unknown Verified 11/18/20 15:07 Sulfa (Sulfonamide Allergy Unknown UNKNOWN Verified 11/18/20 15:07 Antibiotics) [SULFA (SULFONAMIDE ANTIBIOTICS)] lamotrigine [From LAMICTAL] AdvReac Intermediate hx of Verified 11/18/20 15:07 yennifer on doses greater that 200 mg Adhesive Bandages Allergy Unknown Hives Uncoded 11/18/20 15:07 bees/wasps Allergy Unknown Anaphylaxis Uncoded 11/18/20 15:07 ivp contrast dye Allergy Unknown Hives Uncoded 11/18/20 15:07 lychees Allergy Unknown Hives Uncoded 11/18/20 15:07 oranges Allergy Unknown Anaphylaxis Uncoded 11/18/20 15:07 red dyes Allergy Unknown Hives Uncoded 11/18/20 15:07 Active Medications: Current Medications Generic Name Dose Route Start Last Admin Trade Name Freq PRN Reason Stop Dose Admin Lactated Ringer's 1,000 mls @ 50 mls/hr 06/12/21 07:30 Lr IVCONT .Q20H [facility] Home Medications Medication Instructions Recorded Confirmed Last Taken Type albuterol 90 mcg/actuation aerosol mcg INHALATION 08/12/20 08/26/20 History inhaler mcg cariprazine 6 mg capsule (Vraylar) 6 mg PO DAILY 08/12/20 08/12/20 08/28/20 History cetirizine 10 mg tablet (Zyrtec) 10 mg PO DAILY 08/12/20 08/12/20 08/28/20 History clonazepam 1 mg tablet 1 mg PO DAILY 08/12/20 08/12/20 08/26/20 History 1 mg clozapine 50 mg tablet (Clozaril) 50 mg PO BID 08/12/20 08/12/20 08/28/20 History dexmethylphenidate 10 mg tablet 10 mg PO BID 08/12/20 08/12/20 08/28/20 History diphenhydramine HCl 50 mg capsule 50 mg PO TID PRN 08/12/20 08/12/20 Unknown History (Banophen) epinephrine 0.1 mg/mL injection 0.1 mg IM Q30M PRN 08/12/20 08/12/20 08/26/20 History syringe 0.1 mg famotidine 40 mg tablet 40 mg PO BEDTIME 08/12/20 08/12/20 08/28/20 History fluticasone 100 mcg-salmeterol 50 1 inh INHALATION BID 08/12/20 08/12/20 08/28/20 History mcg/dose blistr powdr for inhalation (Advair Diskus) fluticasone propionate 50 1 spray INTRANASAL BID 08/12/20 08/12/20 08/28/20 History mcg/actuation nasal spray,suspension ipratropium 0.5 mg-albuterol 3 mg 3 ml INHALATION QID 08/12/20 08/12/20 08/26/20 History (2.5 mg base)/3 mL nebulization 3 mL soln levonorgestrel 0.15 mg-ethinyl 1 tab PO DAILY 08/12/20 08/12/20 08/28/20 History estradiol 30 mcg tablets,3 mos pack(91) metoprolol tartrate 25 mg tablet 25 mg PO BID 08/12/20 08/12/20 09/12/20 History 0530 prazosin 5 mg capsule 5 mg PO TID 08/12/20 08/12/20 08/28/20 History temazepam 30 mg capsule 30 mg PO BEDTIME PRN 08/12/20 08/12/20 08/26/20 History 30 mg topiramate 50 mg tablet 50 mg PO BID 08/12/20 08/12/20 08/27/20 History zolpidem 10 mg tablet 10 mg PO BEDTIME PRN 08/12/20 08/12/20 08/26/20 History 10 mg Exam Exam Date and Time: June 12, 2021 0719 Height,Weight and Vital Signs: Height 5 ft 9 in Weight 66.224 kg Last Vital Signs Temp 98.2 F 06/12/21 06:37 Pulse 75 06/12/21 06:37 Resp 18 06/12/21 06:37 BP 107/36 L 06/12/21 06:37 Pulse Ox 99 06/12/21 06:37 Pertinent Lab Results Pertinent Lab Results: Laboratory Tests 05/29/21 05/29/21 08:27 08:27 WBC 8.1 RBC 3.86 L Hgb 11.4 L Hct 33.9 L MCV 87.8 MCH 29.5 MCHC 33.6 RDW 12.5 Plt Count 322 MPV 9.9 Immature Gran % (Auto) 0.2 Neut % (Auto) 59.2 Lymph % (Auto) 25.6 [place] % (Auto) 11.2 H Eos % (Auto) 2.6 Baso % (Auto) 1.2 Lymph # (Auto) 2.1 [place] # (Auto) 0.9 Eos # (Auto) 0.2 Baso # (Auto) 0.1 Abs Immat Gran (auto) 0.02 Absolute Neuts (auto) 4.8 Absolute Nucleated RBC 0.000 Nucleated RBC % (auto) 0.0 Sodium 140 Potassium 3.4 Chloride 105 Carbon Dioxide 25 Anion Gap 13 BUN 7 L Creatinine 1.18 Estim Creat Clear Calc TNP Estimated GFR 52 Random Glucose 89 Calcium 9.8 Total Bilirubin 0.4 AST 29 ALT 26 Alkaline Phosphatase 51 Total Protein 7.5 Albumin 4.4 Airway Mallampati Class: II TM Dist: >3cm Neck ROM: Full Heart: RRR Lungs: CTAB Assessment and Plan Assessment Anesthesia Assessment: Anesthesia Plan Discussed and Chart Reviewed Final Anesthetic Review Family History of Problems with Anesthesia: No History of Problems with Anesthesia: No NPO: Yes ASA Class: II Final Preanesthetic Review: No Changes in Pt Med Stat, Meds/Allgs Chart Rev iewed, Consent Obtained/Reviewed and Anes Risks/Benef Reviewed Patient Risk: Intermediate Procedure Risk: Intermediate Assessment/Block/Sedation in SS: Assess/Block/Sedation-SS Anesthetic Plan Anesthetic Plan: GA Disposition: Standard PACU
--- NOTE | 2021-06-12 07:51 | HO.ECTPROC ---
ECT Procedure Note Diagnosis/Treatment Date of Service: 06/12/21 Diagnosis: Bipolar disorder Current Treatment Number: 1 Treatment: Series Interval Clinical Notes: quite depressed ruminating pressure from mother school ECT Settings Device: THYMATRON DGx Electrode Placement: Right Unilateral Program/Pulse Width: 0.25 Energy Percent: 15 Seizure Duration By EEG (in seconds): 53 Medications Administration General Anesthetic: Etomidate (16) Muscle Relaxant: Succinylcholine (100) Ancillary Medications Analgesics: Torodol - Pre ECT and Narcotics Anti-emetics: Zofran - Pre ECT Airway Management Airway Management: Bag Mask Ventilation Treatment Recommendations No Changes Recommended: No change Pt Tolerated Procedure w/o Issue: Yes
[2021-06-12] MEDS: oxyCODONE HCl Immed Release 5 MG TABLET 10 MG PO (08:57)
[2021-06-12] MEDS: Acetaminophen 325 MG TABLET 650 MG PO (08:59)
== END 2021-06-12 09:32 | disposition home or self-care (01) ==
PROVIDERS: Absent Provider Internal Medicine; PCP Internal Medicine; Visit Provider Psychiatry & Neurology Psychiatry
PROC: (CPT 90870; principal; 2021-06-12 07:30)
DX: F33.9 Major depressive disorder, recurrent, unspecified (principal); F98.8 Other specified behavioral and emotional disorders with onset usually occurring in childhood and adolescence; J45.909 Unspecified asthma, uncomplicated; F50.9 Eating disorder, unspecified; F43.10 Post-traumatic stress disorder, unspecified; Z79.51 Long term (current) use of inhaled steroids; Z79.899 Other long term (current) drug therapy; Z91.040 Latex allergy status; Z91.041 Radiographic dye allergy status; Z88.2 Allergy status to sulfonamides; Z88.8 Allergy status to other drugs, medicaments and biological substances
CPT/HCPCS: 36415; 80053; 85025; 90870; 93005; J0330; J1885; J2250; J2405

== ENCOUNTER 2021-06-17 06:04 | Day surgery (SDC) | payer OTHER, SELFPAY ==
[2021-06-17] VITALS (7 sets, daily range): BP systolic 97–123; BP diastolic 35–71; PULSE 78–94; RESP 12–20; TEMP 37.2–37.3; O2SAT 98–100; BMI 20.5
[2021-06-17 06:45] LABS: UPreg QC Valid YES; Urine Pregnancy NEGATIVE (NEGATIVE)
--- NOTE | 2021-06-17 07:02 | HO.ANESPROP2 ---
[facility] Active Problems Active Problems: All Active Problems (Updated 11/18/20 @ 17:28 by Kaylyn Goldberg CNM) History of HPV infection (Acute) Well woman exam with routine gynecological exam (Acute) Past Medical History Medical History Anxiety Bipolar 1 disorder Depression Deviated septum History of electroconvulsive therapy Vasovagal episode Family History Family history of problems with anesthesia: No Surgical History Surgical History History of bunionectomy History of Problems with Anesthesia: No Social History Social History Are you a primary md do resident urgent care to a significant other at home: No Do you presently have visiting nurse or other home services: No Patient Tobacco Use Status: Never used Tobacco Second Hand Smoke Exposure: No Advance Directives: No Advance Directives Information Provided: Yes Meds Allergies Allergy/AdvReac Type Severity Reaction Status Date / Time adhesive tape [ADHESIVE TAPE] Allergy Unknown unknown Verified 11/18/20 15:07 bee pollen [BEE STINGS] Allergy Unknown anaphylaxis Verified 11/18/20 15:07 Iodinated Contrast Media Allergy Unknown unknown Verified 11/18/20 15:07 [CONTRAST, IV] metaxalone [From SKELAXIN] Allergy Unknown unknown Verified 11/18/20 15:07 monocryl/vicryl sutures Allergy Unknown unknown Verified 11/18/20 15:07 morphine [MORPHINE] Allergy Unknown unknown Verified 11/18/20 15:07 moxifloxacin [From AVELOX] Allergy Unknown unknown Verified 11/18/20 15:07 orange [ORANGES] Allergy Unknown anaphylaxis Verified 11/18/20 15:07 red dye [RED DYE] Allergy Unknown unknown Verified 11/18/20 15:07 Sulfa (Sulfonamide Allergy Unknown UNKNOWN Verified 11/18/20 15:07 Antibiotics) [SULFA (SULFONAMIDE ANTIBIOTICS)] lamotrigine [From LAMICTAL] AdvReac Intermediate hx of Verified 11/18/20 15:07 yennifer on doses greater that 200 mg Adhesive Bandages Allergy Unknown Hives Uncoded 11/18/20 15:07 bees/wasps Allergy Unknown Anaphylaxis Uncoded 11/18/20 15:07 ivp contrast dye Allergy Unknown Hives Uncoded 11/18/20 15:07 lychees Allergy Unknown Hives Uncoded 11/18/20 15:07 oranges Allergy Unknown Anaphylaxis Uncoded 11/18/20 15:07 red dyes Allergy Unknown Hives Uncoded 11/18/20 15:07 Active Medications: Current Medications Generic Name Dose Route Start Last Admin Trade Name Flakoq PRN Reason Stop Dose Admin Lactated Ringer's 1,000 mls @ 50 mls/hr 06/17/21 07:15 Lr IVCONT .Q20H [place] Home Medications Medication Instructions Recorded Confirmed Last Taken Type albuterol 90 mcg/actuation aerosol mcg INHALATION 08/12/20 08/26/20 History inhaler mcg cariprazine 6 mg capsule (Vraylar) 6 mg PO DAILY 08/12/20 08/12/20 08/28/20 History cetirizine 10 mg tablet (Zyrtec) 10 mg PO DAILY 08/12/20 08/12/20 08/28/20 History clonazepam 1 mg tablet 1 mg PO DAILY 08/12/20 08/12/20 08/26/20 History 1 mg clozapine 50 mg tablet (Clozaril) 50 mg PO BID 08/12/20 08/12/20 08/28/20 History dexmethylphenidate 10 mg tablet 10 mg PO BID 08/12/20 08/12/20 08/28/20 History diphenhydramine HCl 50 mg capsule 50 mg PO TID PRN 08/12/20 08/12/20 Unknown History (Banophen) epinephrine 0.1 mg/mL injection 0.1 mg IM Q30M PRN 08/12/20 08/12/20 08/26/20 History syringe 0.1 mg famotidine 40 mg tablet 40 mg PO BEDTIME 08/12/20 08/12/20 08/28/20 History fluticasone 100 mcg-salmeterol 50 1 inh INHALATION BID 08/12/20 08/12/20 08/28/20 History mcg/dose blistr powdr for inhalation (Advair Diskus) fluticasone propionate 50 1 spray INTRANASAL BID 08/12/20 08/12/20 08/28/20 History mcg/actuation nasal spray,suspension ipratropium 0.5 mg-albuterol 3 mg 3 ml INHALATION QID 08/12/20 08/12/20 08/26/20 History (2.5 mg base)/3 mL nebulization 3 mL soln levonorgestrel 0.15 mg-ethinyl 1 tab PO DAILY 08/12/20 08/12/20 08/28/20 History estradiol 30 mcg tablets,3 mos pack(91) metoprolol tartrate 25 mg tablet 25 mg PO BID 08/12/20 08/12/20 09/12/20 History 0530 prazosin 5 mg capsule 5 mg PO TID 08/12/20 08/12/20 08/28/20 History temazepam 30 mg capsule 30 mg PO BEDTIME PRN 08/12/20 08/12/20 08/26/20 History 30 mg topiramate 50 mg tablet 50 mg PO BID 08/12/20 08/12/20 08/27/20 History zolpidem 10 mg tablet 10 mg PO BEDTIME PRN 08/12/20 08/12/20 08/26/20 History 10 mg Exam Exam Date and Time: June 17, 2021 0702 Pertinent Lab Results Pertinent Lab Results: Laboratory Tests 06/17/21 06:12 Urine Test NEGATIVE Airway Mallampati Class: II TM Dist: >3cm Neck ROM: Full Heart: rrr Lungs: cta Assessment and Plan Assessment Anesthesia Assessment: Anesthesia Plan Discussed and Chart Reviewed Final Anesthetic Review Family History of Problems with Anesthesia: No History of Problems with Anesthesia: No NPO: Yes ASA Class: III Final Preanesthetic Review: No Changes in Pt Med Stat, Meds/Allgs Chart Reviewed and Consent Obtained/Reviewed Patient Risk: Intermediate Procedure Risk: Intermediate Anesthetic Plan Anesthetic Plan: GA Disposition: Standard PACU
--- NOTE | 2021-06-17 07:30 | MHC.SHP ---
Pre-Procedural Eval Section A Date of Service: 06/17/21 The patient is an INPATIENT: No Changes since office visit: Yes Patient answered all questions; No Cold of Flu in the past 2 weeks, No New Medical Problems and No Changes in Medication The History & Physical has been completed within 30 days and I have reviewed it.: Yes Section B Chief Complaint: Severe Depression Allergies: Allergies Allergy/AdvReac Type Severity Reaction Status Date / Time adhesive tape [ADHESIVE TAPE] Allergy Unknown unknown Verified 11/18/20 15:07 bee pollen [BEE STINGS] Allergy Unknown anaphylaxis Verified 11/18/20 15:07 Iodinated Contrast Media Allergy Unknown unknown Verified 11/18/20 15:07 [CONTRAST, IV] metaxalone [From SKELAXIN] Allergy Unknown unknown Verified 11/18/20 15:07 monocryl/vicryl sutures Allergy Unknown unknown Verified 11/18/20 15:07 morphine [MORPHINE] Allergy Unknown unknown Verified 11/18/20 15:07 moxifloxacin [From AVELOX] Allergy Unknown unknown Verified 11/18/20 15:07 orange [ORANGES] Allergy Unknown anaphylaxis Verified 11/18/20 15:07 red dye [RED DYE] Allergy Unknown unknown Verified 11/18/20 15:07 Sulfa (Sulfonamide Allergy Unknown UNKNOWN Verified 11/18/20 15:07 Antibiotics) [SULFA (SULFONAMIDE ANTIBIOTICS)] lamotrigine [From LAMICTAL] AdvReac Intermediate hx of Verified 11/18/20 15:07 yennifer on doses greater that 200 mg Adhesive Bandages Allergy Unknown Hives Uncoded 11/18/20 15:07 bees/wasps Allergy Unknown Anaphylaxis Uncoded 11/18/20 15:07 ivp contrast dye Allergy Unknown Hives Uncoded 11/18/20 15:07 lychees Allergy Unknown Hives Uncoded 11/18/20 15:07 oranges Allergy Unknown Anaphylaxis Uncoded 11/18/20 15:07 red dyes Allergy Unknown Hives Uncoded 11/18/20 15:07 Plan I have reviewed the history and physical and performed a pertinent physical examination on my patient. No changes have occurred unless specified.
--- NOTE | 2021-06-17 07:32 | HO.ECTPROC ---
ECT Procedure Note Diagnosis/Treatment Date of Service: 06/17/21 Diagnosis: Bipolar disorder Previous ECT Date: 05/13/21 Current Treatment Number: 2 Treatment: Series Interval Clinical Notes: pt quite depressed ruminating irritable denies active si ECT Settings Device: THYMATRON DGx Electrode Placement: Right Unilateral Program/Pulse Width: 0.25 Energy Percent: 15 Seizure Duration By EEG (in seconds): 49 Medications Administration General Anesthetic: Etomidate (16) Muscle Relaxant: Succinylcholine (100) Ancillary Medications Analgesics: Torodol - Pre ECT Anti-emetics: Zofran - Pre ECT Miscillaneous Medications: Propofol and Midazolam Treatment Recommendations Notes: pt remains quite depressed ruminating irritable asking about miniseries will schedule 2 ect Pt Tolerated Procedure w/o Issue: Yes
[2021-06-17] MEDS: Acetaminophen 325 MG TABLET 650 MG PO (08:10)
[2021-06-17] MEDS: oxyCODONE HCl Immed Release 5 MG TABLET 10 MG PO (08:11)
== END 2021-06-17 08:45 | disposition home or self-care (01) ==
PROVIDERS: PCP Internal Medicine; Visit Provider Psychiatry & Neurology Psychiatry
PROC: (CPT 90870; principal; 2021-06-17 07:30)
DX: F31.4 Bipolar disorder, current episode depressed, severe, without psychotic features (principal); R45.4 Irritability and anger
CPT/HCPCS: 81025; 90870; J0330; J1885; J2250; J2405

== ENCOUNTER 2021-06-19 06:07 | Day surgery (SDC) | payer OTHER, SELFPAY ==
[2021-06-19] VITALS (7 sets, daily range): BP systolic 118–160; BP diastolic 73–96; PULSE 98–120; RESP 16–22; TEMP 36.2–37; O2SAT 97–100; BMI 19.9
--- NOTE | 2021-06-19 07:09 | MHC.SHP ---
Pre-Procedural Eval Section A Date of Service: 06/19/21 The patient is an INPATIENT: No Changes since office visit: Yes Patient answered all questions; No Cold of Flu in the past 2 weeks, No New Medical Problems and No Changes in Medication Section B Chief Complaint: depression Allergies: Allergies Allergy/AdvReac Type Severity Reaction Status Date / Time adhesive tape [ADHESIVE TAPE] Allergy Unknown unknown Verified 11/18/20 15:07 bee pollen [BEE STINGS] Allergy Unknown anaphylaxis Verified 11/18/20 15:07 Iodinated Contrast Media Allergy Unknown unknown Verified 11/18/20 15:07 [CONTRAST, IV] metaxalone [From SKELAXIN] Allergy Unknown unknown Verified 11/18/20 15:07 monocryl/vicryl sutures Allergy Unknown unknown Verified 11/18/20 15:07 morphine [MORPHINE] Allergy Unknown unknown Verified 11/18/20 15:07 moxifloxacin [From AVELOX] Allergy Unknown unknown Verified 11/18/20 15:07 orange [ORANGES] Allergy Unknown anaphylaxis Verified 11/18/20 15:07 red dye [RED DYE] Allergy Unknown unknown Verified 11/18/20 15:07 Sulfa (Sulfonamide Allergy Unknown UNKNOWN Verified 11/18/20 15:07 Antibiotics) [SULFA (SULFONAMIDE ANTIBIOTICS)] lamotrigine [From LAMICTAL] AdvReac Intermediate hx of Verified 11/18/20 15:07 yennifer on doses greater that 200 mg Adhesive Bandages Allergy Unknown Hives Uncoded 11/18/20 15:07 bees/wasps Allergy Unknown Anaphylaxis Uncoded 11/18/20 15:07 ivp contrast dye Allergy Unknown Hives Uncoded 11/18/20 15:07 lychees Allergy Unknown Hives Uncoded 11/18/20 15:07 oranges Allergy Unknown Anaphylaxis Uncoded 11/18/20 15:07 red dyes Allergy Unknown Hives Uncoded 11/18/20 15:07 Plan I have reviewed the history and physical and performed a pertinent physical examination on my patient. No changes have occurred unless specified.
--- NOTE | 2021-06-19 07:09 | HO.ECTPROC ---
ECT Procedure Note Diagnosis/Treatment Date of Service: 06/19/21 Diagnosis: Bipolar disorder Previous ECT Date: 06/17/21 Current Treatment Number: 3 Treatment: Series (MINISERIES 3) Interval Clinical Notes: PT DEPRESSED ANXIOUS RUMINATING NEG SI ECT Settings Device: THYMATRON DGx Electrode Placement: Right Unilateral Program/Pulse Width: 0.25 Energy Percent: 10 Seizure Duration By EEG (in seconds): 38 Medications Administration General Anesthetic: Etomidate (12) Muscle Relaxant: Succinylcholine (100) Ancillary Medications Analgesics: Torodol - Pre ECT and Narcotics (OXYCODONE POST) Anti-emetics: Zofran - Pre ECT Airway Management Airway Management: Bag Mask Ventilation Treatment Recommendations No Changes Recommended: No change Notes: GARCÍA AFFECT POST TX CASE REVIEWED DR COLEMAN Pt Tolerated Procedure w/o Issue: Yes
[2021-06-19] MEDS: oxyCODONE HCl Immed Release 5 MG TABLET PO (08:04)
[2021-06-19] MEDS: Acetaminophen 325 MG TABLET 650 MG PO (08:05)
--- NOTE | 2021-06-19 08:52 | HO.POSTANES ---
Post Anesthesia Evaluation Post Anesthesia Evaluation Vital Signs: Vital Signs Temp Pulse Resp BP Pulse Ox 06/19/21 08:18 97.3 F 102 H 20 123/76 98 06/19/21 08:03 98 17 120/79 97 06/19/21 07:48 102 H 20 118/75 99 06/19/21 07:43 105 H 22 H 124/81 100 06/19/21 07:38 104 H 16 120/76 99 06/19/21 07:33 97.2 F 120 H 19 160/96 H 99 06/19/21 06:45 98.6 F 109 H 18 119/73 99 Anesthesia: General Mental Status: Awake Pain Control: Satisfactory Nausea/Vomiting: None Hydration: Adequate Anesthesia-Related Issues: No Anes. Related Issues
== END 2021-06-19 08:41 | disposition home or self-care (01) ==
PROVIDERS: PCP Internal Medicine; Visit Provider Psychiatry & Neurology Psychiatry
PROC: (CPT 90870; principal; 2021-06-19 07:30)
DX: F31.9 Bipolar disorder, unspecified (principal); F98.8 Other specified behavioral and emotional disorders with onset usually occurring in childhood and adolescence; F50.9 Eating disorder, unspecified; F43.10 Post-traumatic stress disorder, unspecified; D64.9 Anemia, unspecified; K21.9 Gastro-esophageal reflux disease without esophagitis; J45.909 Unspecified asthma, uncomplicated
CPT/HCPCS: 90870; J0330; J1885; J2405

== ENCOUNTER 2021-06-22 06:01 | Day surgery (SDC) | payer OTHER, SELFPAY ==
[2021-06-22] VITALS (8 sets, daily range): BP systolic 96–126; BP diastolic 69–91; PULSE 79–121; RESP 14–18; TEMP 36.2–36.8; O2SAT 94–100; BMI 19.9
[2021-06-22 06:51] LABS: UPreg QC Valid YES; Urine Pregnancy NEGATIVE (NEGATIVE)
--- NOTE | 2021-06-22 06:55 | P.CONAN_ITS ---
[facility] Active Problems Active Problems: All Active Problems (Updated 11/18/20 @ 17:28 by Kaylyn bowden CNM) History of HPV infection (Acute) Well woman exam with routine gynecological exam (Acute) Past Medical History Medical History Anxiety Bipolar 1 disorder Depression Deviated septum History of electroconvulsive therapy Vasovagal episode Family History Family history of problems with anesthesia: No Surgical History Surgical History History of bunionectomy History of Problems with Anesthesia: No Social History Social History Are you a primary direct support professional caregiver to a significant other at home: No Do you presently have visiting nurse or other home services: No Patient Tobacco Use Status: Never used Tobacco Second Hand Smoke Exposure: No Are you DNR?: No Advance Directives: No Advance Directives Information Provided: Yes Recently lost weight without trying: No Nutrition Risks: No Nutritional Risk Patient : No Meds Allergies Allergy/AdvReac Type Severity Reaction Status Date / Time adhesive tape [ADHESIVE TAPE] Allergy Unknown unknown Verified 11/18/20 15:07 bee pollen [BEE STINGS] Allergy Unknown anaphylaxis Verified 11/18/20 15:07 Iodinated Contrast Media Allergy Unknown unknown Verified 11/18/20 15:07 [CONTRAST, IV] metaxalone [From SKELAXIN] Allergy Unknown unknown Verified 11/18/20 15:07 monocryl/vicryl sutures Allergy Unknown unknown Verified 11/18/20 15:07 morphine [MORPHINE] Allergy Unknown unknown Verified 11/18/20 15:07 moxifloxacin [From AVELOX] Allergy Unknown unknown Verified 11/18/20 15:07 orange [ORANGES] Allergy Unknown anaphylaxis Verified 11/18/20 15:07 red dye [RED DYE] Allergy Unknown unknown Verified 11/18/20 15:07 Sulfa (Sulfonamide Allergy Unknown UNKNOWN Verified 11/18/20 15:07 Antibiotics) [SULFA (SULFONAMIDE ANTIBIOTICS)] lamotrigine [From LAMICTAL] AdvReac Intermediate hx of Verified 11/18/20 15:07 yennifer on doses greater that 200 mg Adhesive Bandages Allergy Unknown Hives Uncoded 11/18/20 15:07 bees/wasps Allergy Unknown Anaphylaxis Uncoded 11/18/20 15:07 ivp contrast dye Allergy Unknown Hives Uncoded 11/18/20 15:07 lychees Allergy Unknown Hives Uncoded 11/18/20 15:07 oranges Allergy Unknown Anaphylaxis Uncoded 11/18/20 15:07 red dyes Allergy Unknown Hives Uncoded 11/18/20 15:07 Home Medications Medication Instructions Recorded Confirmed Last Taken Type albuterol 90 mcg/actuation aerosol mcg INHALATION 08/12/20 08/26/20 History inhaler mcg cariprazine 6 mg capsule (Vraylar) 6 mg PO DAILY 08/12/20 08/12/20 08/28/20 History cetirizine 10 mg tablet (Zyrtec) 10 mg PO DAILY 08/12/20 08/12/20 08/28/20 History clonazepam 1 mg tablet 1 mg PO DAILY 08/12/20 08/12/20 08/26/20 History 1 mg clozapine 50 mg tablet (Clozaril) 50 mg PO BID 08/12/20 08/12/20 08/28/20 History dexmethylphenidate 10 mg tablet 10 mg PO BID 08/12/20 08/12/20 08/28/20 History diphenhydramine HCl 50 mg capsule 50 mg PO TID PRN 08/12/20 08/12/20 Unknown Hi story (Banophen) epinephrine 0.1 mg/mL injection 0.1 mg IM Q30M PRN 08/12/20 08/12/20 08/26/20 History syringe 0.1 mg famotidine 40 mg tablet 40 mg PO BEDTIME 08/12/20 08/12/20 08/28/20 History fluticasone 100 mcg-salmeterol 50 1 inh INHALATION BID 08/12/20 08/12/20 08/28/20 History mcg/dose blistr powdr for inhalation (Advair Diskus) fluticasone propionate 50 1 spray INTRANASAL BID 08/12/20 08/12/20 08/28/20 History mcg/actuation nasal spray,suspension ipratropium 0.5 mg-albuterol 3 mg 3 ml INHALATION QID 08/12/20 08/12/20 08/26/20 History (2.5 mg base)/3 mL nebulization 3 mL soln levonorgestrel 0.15 mg-ethinyl 1 tab PO DAILY 08/12/20 08/12/20 08/28/20 History estradiol 30 mcg tablets,3 mos pack(91) metoprolol tartrate 25 mg tablet 25 mg PO BID 08/12/20 08/12/20 09/12/20 History 0530 prazosin 5 mg capsule 5 mg PO TID 08/12/20 08/12/20 08/28/20 History temazepam 30 mg capsule 30 mg PO BEDTIME PRN 08/12/20 08/12/20 08/26/20 History 30 mg topiramate 50 mg tablet 50 mg PO BID 08/12/20 08/12/20 08/27/20 History zolpidem 10 mg tablet 10 mg PO BEDTIME PRN 08/12/20 08/12/20 08/26/20 History 10 mg Exam Exam Date and Time: June 22, 2021 0655 Height,Weight and Vital Signs: Height 5 ft 9 in Weight 61.235 kg Last Vital Signs Temp 97.7 F 06/22/21 06:20 Pulse 81 06/22/21 06:20 Resp 18 06/22/21 06:20 BP 96/69 06/22/21 06:20 Pulse Ox 100 06/22/21 06:20 Pertinent Lab Results Pertinent Lab Results: Laboratory Tests 06/22/21 06:10 Urine Test NEGATIVE Airway Mallampati Class: II TM Dist: >3cm Neck ROM: Full Assessment and Plan Final Anesthetic Review Family History of Problems with Anesthesia: No History of Problems with Anesthesia: No
--- NOTE | 2021-06-22 07:08 | MHC.SHP ---
Pre-Procedural Eval Section A Date of Service: 06/22/21 The patient is an INPATIENT: No Changes since office visit: No Cold of Flu in the past 2 weeks, No New Medical Problems, No Changes in Medication and No Patient answered all questions The History & Physical has been completed within 30 days and I have reviewed it.: Yes Section B Chief Complaint: depression Allergies: Allergies Allergy/AdvReac Type Severity Reaction Status Date / Time adhesive tape [ADHESIVE TAPE] Allergy Unknown unknown Verified 11/18/20 15:07 bee pollen [BEE STINGS] Allergy Unknown anaphylaxis Verified 11/18/20 15:07 Iodinated Contrast Media Allergy Unknown unknown Verified 11/18/20 15:07 [CONTRAST, IV] metaxalone [From SKELAXIN] Allergy Unknown unknown Verified 11/18/20 15:07 monocryl/vicryl sutures Allergy Unknown unknown Verified 11/18/20 15:07 morphine [MORPHINE] Allergy Unknown unknown Verified 11/18/20 15:07 moxifloxacin [From AVELOX] Allergy Unknown unknown Verified 11/18/20 15:07 orange [ORANGES] Allergy Unknown anaphylaxis Verified 11/18/20 15:07 red dye [RED DYE] Allergy Unknown unknown Verified 11/18/20 15:07 Sulfa (Sulfonamide Allergy Unknown UNKNOWN Verified 11/18/20 15:07 Antibiotics) [SULFA (SULFONAMIDE ANTIBIOTICS)] lamotrigine [From LAMICTAL] AdvReac Intermediate hx of Verified 11/18/20 15:07 yennifer on doses greater that 200 mg Adhesive Bandages Allergy Unknown Hives Uncoded 11/18/20 15:07 bees/wasps Allergy Unknown Anaphylaxis Uncoded 11/18/20 15:07 ivp contrast dye Allergy Unknown Hives Uncoded 11/18/20 15:07 lychees Allergy Unknown Hives Uncoded 11/18/20 15:07 oranges Allergy Unknown Anaphylaxis Uncoded 11/18/20 15:07 red dyes Allergy Unknown Hives Uncoded 11/18/20 15:07 Plan I have reviewed the history and physical and performed a pertinent physical examination on my patient. No changes have occurred unless specified.
--- NOTE | 2021-06-22 07:10 | HO.ECTPROC ---
ECT Procedure Note Diagnosis/Treatment Date of Service: 06/22/21 Diagnosis: Bipolar disorder Previous ECT Date: 06/19/21 Current Treatment Number: 4 Treatment: Series Interval Clinical Notes: The patient remains dysphoric with some fast cycling. The case was discussed before with her outpatient psychiatrist and Dr. Mena and we agreed to continue a series of ECT. ECT Settings Device: THYMATRON DGx Electrode Placement: Right Unilateral Program/Pulse Width: 0.25 Energy Percent: 10 Seizure Duration By EEG (in seconds): 31 Medications Administration General Anesthetic: Etomidate (16) Muscle Relaxant: Succinylcholine (100) Ancillary Medications Analgesics: Torodol - Pre ECT Anti-emetics: Zofran - Pre ECT Miscillaneous Medications: Propofol Airway Management Airway Management: Bag Mask Ventilation Treatment Recommendations No Changes Recommended: No change Pt Tolerated Procedure w/o Issue: Yes
[2021-06-22] MEDS: Acetaminophen 325 MG TABLET 650 MG PO (08:07)
[2021-06-22] MEDS: oxyCODONE HCl Immed Release 5 MG TABLET 10 MG PO (08:08)
--- NOTE | 2021-06-22 08:40 | PC.NURSE ---
patient states I am very anxious and fearful like somthing bad is going to happen unable to sit still. Patient was tearful and unable to stay in place. Dr. Pimentel notified by this rn. New orderers to give iv ativan.
[2021-06-22] MEDS: LORazepam 2 MG/ML VIAL 1 MG IV (08:57)
== END 2021-06-22 09:25 | disposition home or self-care (01) ==
PROVIDERS: PCP Internal Medicine; Visit Provider Psychiatry & Neurology Psychiatry
PROC: (CPT 90870; principal; 2021-06-22 07:00)
DX: F31.9 Bipolar disorder, unspecified (principal); Z79.899 Other long term (current) drug therapy; Z91.041 Radiographic dye allergy status; Z91.040 Latex allergy status; Z88.2 Allergy status to sulfonamides; Z88.8 Allergy status to other drugs, medicaments and biological substances
CPT/HCPCS: 81025; 90870; J0330; J1885; J2060; J2405

== ENCOUNTER 2021-06-24 06:04 | Day surgery (SDC) | payer OTHER, SELFPAY ==
[2021-06-24] VITALS (7 sets, daily range): BP systolic 110–135; BP diastolic 58–82; PULSE 82–115; RESP 12–18; TEMP 36.2–37.1; O2SAT 95–99; BMI 19.9
[2021-06-24 06:52] LABS: UPreg QC Valid YES; Urine Pregnancy NEGATIVE (NEGATIVE)
--- NOTE | 2021-06-24 07:01 | MHC.SHP ---
Pre-Procedural Eval Section A Date of Service: 06/24/21 The patient is an INPATIENT: No Changes since office visit: No Cold of Flu in the past 2 weeks, No New Medical Problems, No Changes in Medication and No Patient answered all questions The History & Physical has been completed within 30 days and I have reviewed it.: Yes Section B Chief Complaint: depression Allergies: Allergies Allergy/AdvReac Type Severity Reaction Status Date / Time adhesive tape [ADHESIVE TAPE] Allergy Unknown unknown Verified 11/18/20 15:07 bee pollen [BEE STINGS] Allergy Unknown anaphylaxis Verified 11/18/20 15:07 Iodinated Contrast Media Allergy Unknown unknown Verified 11/18/20 15:07 [CONTRAST, IV] metaxalone [From SKELAXIN] Allergy Unknown unknown Verified 11/18/20 15:07 monocryl/vicryl sutures Allergy Unknown unknown Verified 11/18/20 15:07 morphine [MORPHINE] Allergy Unknown unknown Verified 11/18/20 15:07 moxifloxacin [From AVELOX] Allergy Unknown unknown Verified 11/18/20 15:07 orange [ORANGES] Allergy Unknown anaphylaxis Verified 11/18/20 15:07 red dye [RED DYE] Allergy Unknown unknown Verified 11/18/20 15:07 Sulfa (Sulfonamide Allergy Unknown UNKNOWN Verified 11/18/20 15:07 Antibiotics) [SULFA (SULFONAMIDE ANTIBIOTICS)] lamotrigine [From LAMICTAL] AdvReac Intermediate hx of Verified 11/18/20 15:07 yennifer on doses greater that 200 mg Adhesive Bandages Allergy Unknown Hives Uncoded 11/18/20 15:07 bees/wasps Allergy Unknown Anaphylaxis Uncoded 11/18/20 15:07 ivp contrast dye Allergy Unknown Hives Uncoded 11/18/20 15:07 lychees Allergy Unknown Hives Uncoded 11/18/20 15:07 oranges Allergy Unknown Anaphylaxis Uncoded 11/18/20 15:07 red dyes Allergy Unknown Hives Uncoded 11/18/20 15:07 Plan I have reviewed the history and physical and performed a pertinent physical examination on my patient. No changes have occurred unless specified.
--- NOTE | 2021-06-24 07:05 | P.CONAN_ITS ---
[facility] Active Problems Active Problems: All Active Problems (Updated 11/18/20 @ 17:28 by Kaylyn bowden CNM) History of HPV infection (Acute) Well woman exam with routine gynecological exam (Acute) Past Medical History Medical History Anxiety Bipolar 1 disorder Depression Deviated septum History of electroconvulsive therapy Vasovagal episode Family History Family history of problems with anesthesia: No Surgical History Surgical History History of bunionectomy History of Problems with Anesthesia: No Social History Social History Are you a primary emergency care attendant to a significant other at home: No Do you presently have visiting nurse or other home services: No Patient Tobacco Use Status: Never used Tobacco Second Hand Smoke Exposure: No Are you DNR?: No Advance Directives: No Advance Directives Information Provided: Yes Meds Allergies Allergy/AdvReac Type Severity Reaction Status Date / Time adhesive tape [ADHESIVE TAPE] Allergy Unknown unknown Verified 11/18/20 15:07 bee pollen [BEE STINGS] Allergy Unknown anaphylaxis Verified 11/18/20 15:07 Iodinated Contrast Media Allergy Unknown unknown Verified 11/18/20 15:07 [CONTRAST, IV] metaxalone [From SKELAXIN] Allergy Unknown unknown Verified 11/18/20 15:07 monocryl/vicryl sutures Allergy Unknown unknown Verified 11/18/20 15:07 morphine [MORPHINE] Allergy Unknown unknown Verified 11/18/20 15:07 moxifloxacin [From AVELOX] Allergy Unknown unknown Verified 11/18/20 15:07 orange [ORANGES] Allergy Unknown anaphylaxis Verified 11/18/20 15:07 red dye [RED DYE] Allergy Unknown unknown Verified 11/18/20 15:07 Sulfa (Sulfonamide Allergy Unknown UNKNOWN Verified 11/18/20 15:07 Antibiotics) [SULFA (SULFONAMIDE ANTIBIOTICS)] lamotrigine [From LAMICTAL] AdvReac Intermediate hx of Verified 11/18/20 15:07 yennifer on doses greater that 200 mg Adhesive Bandages Allergy Unknown Hives Uncoded 11/18/20 15:07 bees/wasps Allergy Unknown Anaphylaxis Uncoded 01/05/21 15:07 ivp contrast dye Allergy Unknown Hives Uncoded 11/18/20 15:07 lychees Allergy Unknown Hives Uncoded 11/18/20 15:07 oranges Allergy Unknown Anaphylaxis Uncoded 11/18/20 15:07 red dyes Allergy Unknown Hives Uncoded 11/18/20 15:07 Home Medications Medication Instructions Recorded Confirmed Last Taken Type albuterol 90 mcg/actuation aerosol mcg INHALATION 08/12/20 08/26/20 History inhaler mcg cariprazine 6 mg capsule (Vraylar) 6 mg PO DAILY 08/12/20 08/12/20 08/28/20 History cetirizine 10 mg tablet (Zyrtec) 10 mg PO DAILY 08/12/20 08/12/20 08/28/20 History clonazepam 1 mg tablet 1 mg PO DAILY 08/12/20 08/12/20 08/26/20 History 1 mg clozapine 50 mg tablet (Clozaril) 50 mg PO BID 08/12/20 08/12/20 08/28/20 History dexmethylphenidate 10 mg tablet 10 mg PO BID 08/12/20 08/12/20 08/28/20 History diphenhydramine HCl 50 mg capsule 50 mg PO TID PRN 08/12/20 08/12/20 Unknown Hi story (Banophen) epinephrine 0.1 mg/mL injection 0.1 mg IM Q30M PRN 08/12/20 08/12/20 08/26/20 History syringe 0.1 mg famotidine 40 mg tablet 40 mg PO BEDTIME 08/12/20 08/12/20 08/28/20 History fluticasone 100 mcg-salmeterol 50 1 inh INHALATION BID 08/12/20 08/12/20 08/28/20 History mcg/dose blistr powdr for inhalation (Advair Diskus) fluticasone propionate 50 1 spray INTRANASAL BID 08/12/20 08/12/20 08/28/20 History mcg/actuation nasal spray,suspension ipratropium 0.5 mg-albuterol 3 mg 3 ml INHALATION QID 08/12/20 08/12/20 08/26/20 History (2.5 mg base)/3 mL nebulization 3 mL soln levonorgestrel 0.15 mg-ethinyl 1 tab PO DAILY 08/12/20 08/12/20 08/28/20 History estradiol 30 mcg tablets,3 mos pack(91) metoprolol tartrate 25 mg tablet 25 mg PO BID 08/12/20 08/12/20 09/12/20 History 0530 prazosin 5 mg capsule 5 mg PO TID 08/12/20 08/12/20 08/28/20 History temazepam 30 mg capsule 30 mg PO BEDTIME PRN 08/12/20 08/12/20 08/26/20 History 30 mg topiramate 50 mg tablet 50 mg PO BID 08/12/20 08/12/20 08/27/20 History zolpidem 10 mg tablet 10 mg PO BEDTIME PRN 08/12/20 08/12/20 08/26/20 History 10 mg Exam Exam Date and Time: June 24, 2021 0705 Height,Weight and Vital Signs: Height 5 ft 9 in Weight 61.235 kg Last Vital Signs Temp 98.3 F 06/24/21 06:53 Pulse 104 H 06/24/21 06:53 Resp 18 06/24/21 06:53 BP 117/79 06/24/21 06:53 Pulse Ox 99 06/24/21 06:53 Pertinent Lab Results Pertinent Lab Results: Laboratory Tests 06/24/21 06:20 Urine Test NEGATIVE Airway Mallampati Class: II TM Dist: >3cm Neck ROM: Full Assessment and Plan Final Anesthetic Review Family History of Problems with Anesthesia: No History of Problems with Anesthesia: No NPO: Yes ASA Class: II Final Preanesthetic Review: No Changes in Pt Med Stat, Meds/Allgs Chart Reviewed, Consent Obtained/Reviewed and Anes Risks/Benef Reviewed Patient Risk: Low Procedure Risk: Low Assessment/Block/Sedation in SS: Assess/Block/Sedation-SS Anesthetic Plan Anesthetic Plan: MAC: Disposition: Standard PACU
--- NOTE | 2021-06-24 07:29 | HO.ECTPROC ---
ECT Procedure Note Diagnosis/Treatment Date of Service: 06/24/21 Diagnosis: Bipolar disorder Previous ECT Date: 06/22/21 Treatment: Series (Miniseries) Interval Clinical Notes: The patient remains dysphoric, medication changes have already started. ECT Settings Device: THYMATRON DGx Electrode Placement: Right Unilateral Program/Pulse Width: 0.25 Energy Percent: 15 Seizure Duration By EEG (in seconds): 60 Medications Administration General Anesthetic: Etomidate (16 + 10) Muscle Relaxant: Succinylcholine (100) Ancillary Medications Analgesics: Torodol - Pre ECT Anti-emetics: Zofran - Pre ECT Miscillaneous Medications: Other (Oxycodone and Ativan after waking up) Airway Management Airway Management: Bag Mask Ventilation Treatment Recommendations No Changes Recommended: No change Pt Tolerated Procedure w/o Issue: Yes
[2021-06-24] MEDS: Acetaminophen 325 MG TABLET 650 MG PO (07:53)
[2021-06-24] MEDS: oxyCODONE HCl Immed Release 5 MG TABLET 10 MG PO (07:53)
== END 2021-06-24 08:40 | disposition home or self-care (01) ==
PROVIDERS: PCP Internal Medicine; Visit Provider Psychiatry & Neurology Psychiatry
PROC: (CPT 90870; principal; 2021-06-24 07:30)
DX: F31.2 Bipolar disorder, current episode manic severe with psychotic features (principal); Z79.899 Other long term (current) drug therapy
CPT/HCPCS: 81025; 90870; J0330; J1885; J2405

== ENCOUNTER 2021-06-26 06:05 | Day surgery (SDC) | payer OTHER, SELFPAY ==
[2021-06-26] VITALS (7 sets, daily range): BP systolic 107–125; BP diastolic 58–80; PULSE 93–120; RESP 16–19; TEMP 36.3; O2SAT 97–100; BMI 19.9
--- NOTE | 2021-06-26 07:06 | P.CONAN_ITS ---
[facility] Active Problems Active Problems: All Active Problems (Updated 11/18/20 @ 17:28 by Kaylyn bowden CNM) History of HPV infection (Acute) Well woman exam with routine gynecological exam (Acute) Past Medical History Medical History Anxiety Bipolar 1 disorder Depression Deviated septum History of electroconvulsive therapy Vasovagal episode Family History Family history of problems with anesthesia: No Surgical History Surgical History History of bunionectomy History of Problems with Anesthesia: No Social History Social History Are you a primary congregational care pastor to a significant other at home: No Do you presently have visiting nurse or other home services: No Patient Tobacco Use Status: Never used Tobacco Second Hand Smoke Exposure: No Are you DNR?: No Advance Directives: No Advance Directives Information Provided: Yes Recently lost weight without trying: No Patient : No : No Meds Allergies Allergy/AdvReac Type Severity Reaction Status Date / Time adhesive tape [ADHESIVE TAPE] Allergy Unknown unknown Verified 11/18/20 15:07 bee pollen [BEE STINGS] Allergy Unknown anaphylaxis Verified 11/18/20 15:07 Iodinated Contrast Media Allergy Unknown unknown Verified 11/18/20 15:07 [CONTRAST, IV] metaxalone [From SKELAXIN] Allergy Unknown unknown Verified 11/18/20 15:07 monocryl/vicryl sutures Allergy Unknown unknown Verified 11/18/20 15:07 morphine [MORPHINE] Allergy Unknown unknown Verified 11/18/20 15:07 moxifloxacin [From AVELOX] Allergy Unknown unknown Verified 11/18/20 15:07 orange [ORANGES] Allergy Unknown anaphylaxis Verified 11/18/20 15:07 red dye [RED DYE] Allergy Unknown unknown Verified 11/18/20 15:07 Sulfa (Sulfonamide Allergy Unknown UNKNOWN Verified 11/18/20 15:07 Antibiotics) [SULFA (SULFONAMIDE ANTIBIOTICS)] lamotrigine [From LAMICTAL] AdvReac Intermediate hx of Verified 11/18/20 15:07 yennifer on doses greater that 200 mg Adhesive Bandages Allergy Unknown Hives Uncoded 11/18/20 15:07 bees/wasps Allergy Unknown Anaphylaxis Uncoded 11/18/20 15:07 ivp contrast dye Allergy Unknown Hives Uncoded 11/18/20 15:07 lychees Allergy Unknown Hives Uncoded 11/18/20 15:07 oranges Allergy Unknown Anaphylaxis Uncoded 11/18/20 15:07 red dyes Allergy Unknown Hives Uncoded 11/18/20 15:07 Home Medications Medication Instructions Recorded Confirmed Last Taken Type albuterol 90 mcg/actuation aerosol mcg INHALATION 08/12/20 08/26/20 History inhaler mcg cariprazine 6 mg capsule (Vraylar) 6 mg PO DAILY 08/12/20 08/12/20 08/28/20 History cetirizine 10 mg tablet (Zyrtec) 10 mg PO DAILY 08/12/20 08/12/20 08/28/20 History clonazepam 1 mg tablet 1 mg PO DAILY 08/12/20 08/12/20 08/26/20 History 1 mg clozapine 50 mg tablet (Clozaril) 50 mg PO BID 08/12/20 08/12/20 08/28/20 History dexmethylphenidate 10 mg tablet 10 mg PO BID 08/12/20 08/12/20 08/28/20 History diphenhydramine HCl 50 mg capsule 50 mg PO TID PRN 08/12/20 08/12/20 Unknown History (Banophen) epinephrine 0.1 mg/mL injection 0.1 mg IM Q30M PRN 08/12/20 08/12/20 08/26/20 History syringe 0.1 mg famotidine 40 mg tablet 40 mg PO BEDTIME 08/12/20 08/12/20 08/28/20 History fluticasone 100 mcg-salmeterol 50 1 inh INHALATION BID 08/12/20 08/12/20 08/28/20 History mcg/dose blistr powdr for inhalation (Advair Diskus) fluticasone propionate 50 1 spray INTRANASAL BID 08/12/20 08/12/20 08/28/20 History mcg/actuation nasal spray,suspension ipratropium 0.5 mg-albuterol 3 mg 3 ml INHALATION QID 08/12/20 08/12/20 08/26/20 History (2.5 mg base)/3 mL nebulization 3 mL soln levonorgestrel 0.15 mg-ethinyl 1 tab PO DAILY 08/12/20 08/12/20 08/28/20 History estradiol 30 mcg tablets,3 mos pack(91) metoprolol tartrate 25 mg tablet 25 mg PO BID 08/12/20 08/12/20 09/12/20 History 0530 prazosin 5 mg capsule 5 mg PO TID 08/12/20 08/12/20 08/28/20 History temazepam 30 mg capsule 30 mg PO BEDTIME PRN 08/12/20 08/12/20 08/26/20 History 30 mg topiramate 50 mg tablet 50 mg PO BID 08/12/20 08/12/20 08/27/20 History zolpidem 10 mg tablet 10 mg PO BEDTIME PRN 08/12/20 08/12/20 08/26/20 History 10 mg Exam Exam Date and Time: June 26, 2021 0706 Height,Weight and Vital Signs: Height 5 ft 9 in Weight 61.235 kg Last Vital Signs Temp 97.4 F 06/26/21 06:37 Pulse 93 06/26/21 06:37 Resp 17 06/26/21 06:37 BP 111/80 06/26/21 06:37 Pulse Ox 99 06/26/21 06:37 Airway Mallampati Class: II TM Dist: >3cm Neck ROM: Full Assessment and Plan Assessment Anesthesia Assessment: Anesthesia Plan Discussed and Chart Reviewed Final Anesthetic Review Family History of Problems with Anesthesia: No History of Problems with Anesthesia: No NPO: Yes ASA Class: II Final Preanesthetic Review: No Changes in Pt Med Stat, Meds/Allgs Chart Reviewed, Consent Obtained/Reviewed and Anes Risks/Benef Reviewed Patient Risk: Low Procedure Risk: Low Assessment/Block/Sedation in SS: Assess/Block/Sedation-SS Anesthetic Plan Anesthetic Plan: GA Disposition: Standard PACU
--- NOTE | 2021-06-26 07:06 | MHC.SHP ---
Pre-Procedural Eval Section A Date of Service: 06/26/21 The patient is an INPATIENT: No Changes since office visit: No Cold of Flu in the past 2 weeks, No New Medical Problems, No Changes in Medication and No Patient answered all questions The History & Physical has been completed within 30 days and I have reviewed it.: No Section B Chief Complaint: depression Allergies: Allergies Allergy/AdvReac Type Severity Reaction Status Date / Time adhesive tape [ADHESIVE TAPE] Allergy Unknown unknown Verified 11/18/20 15:07 bee pollen [BEE STINGS] Allergy Unknown anaphylaxis Verified 11/18/20 15:07 Iodinated Contrast Media Allergy Unknown unknown Verified 11/18/20 15:07 [CONTRAST, IV] metaxalone [From SKELAXIN] Allergy Unknown unknown Verified 11/18/20 15:07 monocryl/vicryl sutures Allergy Unknown unknown Verified 11/18/20 15:07 morphine [MORPHINE] Allergy Unknown unknown Verified 11/18/20 15:07 moxifloxacin [From AVELOX] Allergy Unknown unknown Verified 11/18/20 15:07 orange [ORANGES] Allergy Unknown anaphylaxis Verified 11/18/20 15:07 red dye [RED DYE] Allergy Unknown unknown Verified 11/18/20 15:07 Sulfa (Sulfonamide Allergy Unknown UNKNOWN Verified 11/18/20 15:07 Antibiotics) [SULFA (SULFONAMIDE ANTIBIOTICS)] lamotrigine [From LAMICTAL] AdvReac Intermediate hx of Verified 11/18/20 15:07 yennifer on doses greater that 200 mg Adhesive Bandages Allergy Unknown Hives Uncoded 11/18/20 15:07 bees/wasps Allergy Unknown Anaphylaxis Uncoded 11/18/20 15:07 ivp contrast dye Allergy Unknown Hives Uncoded 11/18/20 15:07 lychees Allergy Unknown Hives Uncoded 11/18/20 15:07 oranges Allergy Unknown Anaphylaxis Uncoded 11/18/20 15:07 red dyes Allergy Unknown Hives Uncoded 11/18/20 15:07 Plan I have reviewed the history and physical and performed a pertinent physical examination on my patient. No changes have occurred unless specified.
--- NOTE | 2021-06-26 07:22 | P.PCN_ITS ---
ECT Procedure Note Diagnosis/Treatment Date of Service: 06/26/21 Diagnosis: Bipolar disorder Previous ECT Date: 06/24/21 Treatment: Series Interval Clinical Notes: The patient remains dysphoric, she reported mild impro vement, overwhelmed with her college but today she showed a brighter affect, seems much better. ECT Settings Device: THYMATRON DGx Electrode Placement: Right Unilateral Program/Pulse Width: 0.25 Energy Percent: 15 Seizure Duration By EEG (in seconds): 30 Medications Administration General Anesthetic: Etomidate (16) Muscle Relaxant: Succinylcholine (100) Ancillary Medications Analgesics: Torodol - Pre ECT Anti-emetics: Zofran - Pre ECT Miscillaneous Medications: Propofol and Other (ativan and oxycodone) Airway Management Airway Management: Bag Mask Ventilation Treatment Recommendations No Changes Recommended: No change Pt Tolerated Procedure w/o Issue: Yes
[2021-06-26] MEDS: Acetaminophen 325 MG TABLET 650 MG PO (08:05)
[2021-06-26] MEDS: oxyCODONE HCl Immed Release 5 MG TABLET 10 MG PO (08:05)
[2021-06-26] MEDS: ondansetron HCL 4 MG/2 ML VIAL IVPUSH (08:27)
== END 2021-06-26 08:52 | disposition home or self-care (01) ==
PROVIDERS: PCP Internal Medicine; Visit Provider Psychiatry & Neurology Psychiatry
PROC: (CPT 90870; principal; 2021-06-26 07:30)
DX: F31.9 Bipolar disorder, unspecified (principal); Z91.041 Radiographic dye allergy status; Z88.2 Allergy status to sulfonamides; Z88.8 Allergy status to other drugs, medicaments and biological substances; Z79.899 Other long term (current) drug therapy
CPT/HCPCS: 90870; J0330; J1885; J2405

== ENCOUNTER 2021-06-29 06:47 | Day surgery (SDC) | payer OTHER, SELFPAY ==
[2021-06-29] VITALS (7 sets, daily range): BP systolic 106–122; BP diastolic 61–81; PULSE 77–99; RESP 16–20; TEMP 36.6–36.7; O2SAT 97–100; BMI 19.9
--- NOTE | 2021-06-29 06:53 | MHC.SHP ---
Pre-Procedural Eval Section A Date of Service: 06/29/21 The patient is an INPATIENT: No Changes since office visit: No Cold of Flu in the past 2 weeks, No New Medical Problems, No Changes in Medication and No Patient answered all questions The History & Physical has been completed within 30 days and I have reviewed it.: Yes Section B Chief Complaint: depression Allergies: Allergies Allergy/AdvReac Type Severity Reaction Status Date / Time adhesive tape [ADHESIVE TAPE] Allergy Unknown unknown Verified 11/18/20 15:07 bee pollen [BEE STINGS] Allergy Unknown anaphylaxis Verified 11/18/20 15:07 Iodinated Contrast Media Allergy Unknown unknown Verified 11/18/20 15:07 [CONTRAST, IV] metaxalone [From SKELAXIN] Allergy Unknown unknown Verified 11/18/20 15:07 monocryl/vicryl sutures Allergy Unknown unknown Verified 11/18/20 15:07 morphine [MORPHINE] Allergy Unknown unknown Verified 11/18/20 15:07 moxifloxacin [From AVELOX] Allergy Unknown unknown Verified 11/18/20 15:07 orange [ORANGES] Allergy Unknown anaphylaxis Verified 11/18/20 15:07 red dye [RED DYE] Allergy Unknown unknown Verified 11/18/20 15:07 Sulfa (Sulfonamide Allergy Unknown UNKNOWN Verified 11/18/20 15:07 Antibiotics) [SULFA (SULFONAMIDE ANTIBIOTICS)] lamotrigine [From LAMICTAL] AdvReac Intermediate hx of Verified 11/18/20 15:07 yennifer on doses greater that 200 mg Adhesive Bandages Allergy Unknown Hives Uncoded 11/18/20 15:07 bees/wasps Allergy Unknown Anaphylaxis Uncoded 11/18/20 15:07 ivp contrast dye Allergy Unknown Hives Uncoded 11/18/20 15:07 lychees Allergy Unknown Hives Uncoded 11/18/20 15:07 oranges Allergy Unknown Anaphylaxis Uncoded 11/18/20 15:07 red dyes Allergy Unknown Hives Uncoded 11/18/20 15:07 Plan I have reviewed the history and physical and performed a pertinent physical examination on my patient. No changes have occurred unless specified.
--- NOTE | 2021-06-29 06:56 | P.CONAN_ITS ---
[facility] Active Problems Active Problems: All Active Problems (Updated 11/18/20 @ 17:28 by Kaylyn bowden CNM) History of HPV infection (Acute) Well woman exam with routine gynecological exam (Acute) Past Medical History Medical History Anxiety Bipolar 1 disorder Depression Deviated septum History of electroconvulsive therapy Vasovagal episode Family History Family history of problems with anesthesia: No Surgical History Surgical History History of bunionectomy History of Problems with Anesthesia: No Social History Social History Are you a primary after school caregiver to a significant other at home: No Do you presently have visiting nurse or other home services: No Patient Tobacco Use Status: Never used Tobacco Second Hand Smoke Exposure: No Advance Directives: No Advance Directives Information Provided: Yes Meds Allergies Allergy/AdvReac Type Severity Reaction Status Date / Time adhesive tape [ADHESIVE TAPE] Allergy Unknown unknown Verified 11/18/20 15:07 bee pollen [BEE STINGS] Allergy Unknown anaphylaxis Verified 11/18/20 15:07 Iodinated Contrast Media Allergy Unknown unknown Verified 11/18/20 15:07 [CONTRAST, IV] metaxalone [From SKELAXIN] Allergy Unknown unknown Verified 11/18/20 15:07 monocryl/vicryl sutures Allergy Unknown unknown Verified 11/18/20 15:07 morphine [MORPHINE] Allergy Unknown unknown Verified 11/18/20 15:07 moxifloxacin [From AVELOX] Allergy Unknown unknown Verified 11/18/20 15:07 orange [ORANGES] Allergy Unknown anaphylaxis Verified 11/18/20 15:07 red dye [RED DYE] Allergy Unknown unknown Verified 11/18/20 15:07 Sulfa (Sulfonamide Allergy Unknown UNKNOWN Verified 11/18/20 15:07 Antibiotics) [SULFA (SULFONAMIDE ANTIBIOTICS)] lamotrigine [From LAMICTAL] AdvReac Intermediate hx of Verified 11/18/20 15:07 yennifer on doses greater that 200 mg Adhesive Bandages Allergy Unknown Hives Uncoded 11/18/20 15:07 bees/wasps Allergy Unknown Anaphylaxis Uncoded 11/18/20 15:07 ivp contrast dye Allergy Unknown Hives Uncoded 11/18/20 15:07 lychees Allergy Unknown Hives Uncoded 11/18/20 15:07 oranges Allergy Unknown Anaphylaxis Uncoded 11/18/20 15:07 red dyes Allergy Unknown Hives Uncoded 11/18/20 15:07 Home Medications Medication Instructions Recorded Confirmed Last Taken Type albuterol 90 mcg/actuation aerosol mcg INHALATION 08/12/20 08/26/20 History inhaler mcg cariprazine 6 mg capsule (Vraylar) 6 mg PO DAILY 08/12/20 08/12/20 08/28/20 History cetirizine 10 mg tablet (Zyrtec) 10 mg PO DAILY 08/12/20 08/12/20 08/28/20 History clonazepam 1 mg tablet 1 mg PO DAILY 08/12/20 08/12/20 08/26/20 History 1 mg clozapine 50 mg tablet (Clozaril) 50 mg PO BID 08/12/20 08/12/20 08/28/20 History dexmethylphenidate 10 mg tablet 10 mg PO BID 08/12/20 08/12/20 08/28/20 History diphenhydramine HCl 50 mg capsule 50 mg PO TID PRN 08/12/20 08/12/20 Unknown History (Banophen) epinephrine 0.1 mg/mL injection 0.1 mg IM Q30M PRN 08/12/20 08/12/20 08/26/20 History syringe 0.1 mg famotidine 40 mg tablet 40 mg PO BEDTIME 08/12/20 08/12/20 08/28/20 History fluticasone 100 mcg-salmeterol 50 1 inh INHALATION BID 08/12/20 08/12/20 08/28/20 History mcg/dose blistr powdr for inhalation (Advair Diskus) fluticasone propionate 50 1 spray INTRANASAL BID 08/12/20 08/12/20 08/28/20 History mcg/actuation nasal spray,suspension ipratropium 0.5 mg-albuterol 3 mg 3 ml INHALATION QID 08/12/20 08/12/20 08/26/20 History (2.5 mg base)/3 mL nebulization 3 mL soln levonorgestrel 0.15 mg-ethinyl 1 tab PO DAILY 08/12/20 08/12/20 08/28/20 History estradiol 30 mcg tablets,3 mos pack(91) metoprolol tartrate 25 mg tablet 25 mg PO BID 08/12/20 08/12/20 09/12/20 History 0530 prazosin 5 mg capsule 5 mg PO TID 08/12/20 08/12/20 08/28/20 History temazepam 30 mg capsule 30 mg PO BEDTIME PRN 08/12/20 08/12/20 08/26/20 History 30 mg topiramate 50 mg tablet 50 mg PO BID 08/12/20 08/12/20 08/27/20 History zolpidem 10 mg tablet 10 mg PO BEDTIME PRN 08/12/20 08/12/20 08/26/20 History 10 mg Exam Exam Date and Time: June 29, 2021 0656 Height,Weight and Vital Signs: Last Vital Signs Temp 97.8 F 06/29/21 06:48 Pulse 99 06/29/21 06:48 Resp 20 06/29/21 06:48 BP 122/81 06/29/21 06:48 Pulse Ox 97 06/29/21 06:48 Airway Mallampati Class: II TM Dist: >3cm Neck ROM: Full Heart: rrr Lungs: cta bl Assessment and Plan Assessment Anesthesia Assessment: Anesthesia Plan Discussed and Chart Reviewed Final Anesthetic Review Family History of Problems with Anesthesia: No History of Problems with Anesthesia: No NPO: Yes ASA Class: III Final Preanesthetic Review: No Changes in Pt Med Stat and Consent Obtained/Reviewed Patient Risk: Intermediate Procedure Risk: Intermediate Anesthetic Plan Anesthetic Plan: GA Disposition: Standard PACU
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
[2021-06-29] MEDS: Lactated Ringers 1,000 ML 50 ML IVCONT (07:35)
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
[2021-06-29] MEDS: ondansetron HCL 4 MG/2 ML VIAL IVPUSH (08:17)
[2021-06-29] MEDS: Acetaminophen 325 MG TABLET 650 MG PO (08:36)
[2021-06-29] MEDS: oxyCODONE HCl Immed Release 5 MG TABLET 10 MG PO (08:37)
== END 2021-06-29 09:15 | disposition home or self-care (01) ==
PROVIDERS: PCP Internal Medicine; Visit Provider Psychiatry & Neurology Psychiatry
PROC: (CPT 90870; principal; 2021-06-29 07:00)
DX: F31.9 Bipolar disorder, unspecified (principal); Z79.899 Other long term (current) drug therapy; Z88.2 Allergy status to sulfonamides; Z91.040 Latex allergy status; Z91.041 Radiographic dye allergy status
CPT/HCPCS: 90870; J0330; J1885; J2405

== ENCOUNTER 2021-07-01 12:02 | Inpatient (IN) | payer OTHER, SELFPAY ==
[2021-07-01] VITALS (9 sets, daily range): BP systolic 118–129; BP diastolic 66–88; PULSE 82–112; RESP 16–20; TEMP 37–37.4; O2SAT 96–100; BMI 19.9
[2021-07-01 07:16] LABS: UPreg QC Valid YES; Urine Pregnancy NEGATIVE (NEGATIVE)
--- NOTE | 2021-07-01 07:24 | HO.ANESPROP2 ---
[facility] Active Problems Active Problems: All Active Problems (Updated 11/18/20 @ 17:28 by Kaylyn Goldberg CNM) History of HPV infection (Acute) Well woman exam with routine gynecological exam (Acute) Past Medical History Medical History Anxiety Bipolar 1 disorder Depression Deviated septum History of electroconvulsive therapy Vasovagal episode Family History Family history of problems with anesthesia: No Surgical History Surgical History History of bunionectomy History of Problems with Anesthesia: No Social History Social History Are you a primary day care supervisor to a significant other at home: No Do you presently have visiting nurse or other home services: No Patient Tobacco Use Status: Never used Tobacco Second Hand Smoke Exposure: No Are you DNR?: No Advance Directives: No Advance Directives Information Provided: Yes Meds Allergies Allergy/AdvReac Type Severity Reaction Status Date / Time adhesive tape [ADHESIVE TAPE] Allergy Unknown unknown Verified 11/18/20 15:07 bee pollen [BEE STINGS] Allergy Unknown anaphylaxis Verified 11/18/20 15:07 Iodinated Contrast Media Allergy Unknown unknown Verified 11/18/20 15:07 [CONTRAST, IV] metaxalone [From SKELAXIN] Allergy Unknown unknown Verified 11/18/20 15:07 monocryl/vicryl sutures Allergy Unknown unknown Verified 11/18/20 15:07 morphine [MORPHINE] Allergy Unknown unknown Verified 11/18/20 15:07 moxifloxacin [From AVELOX] Allergy Unknown unknown Verified 11/18/20 15:07 orange [ORANGES] Allergy Unknown anaphylaxis Verified 11/18/20 15:07 red dye [RED DYE] Allergy Unknown unknown Verified 11/18/20 15:07 Sulfa (Sulfonamide Allergy Unknown UNKNOWN Verified 11/18/20 15:07 Antibiotics) [SULFA (SULFONAMIDE ANTIBIOTICS)] lamotrigine [From LAMICTAL] AdvReac Intermediate hx of Verified 11/18/20 15:07 yennifer on doses greater that 200 mg Adhesive Bandages Allergy Unknown Hives Uncoded 11/18/20 15:07 bees/wasps Allergy Unknown Anaphylaxis Uncoded 11/18/20 15:07 ivp contrast dye Allergy Unknown Hives Uncoded 11/18/20 15:07 lychees Allergy Unknown Hives Uncoded 11/18/20 15:07 oranges Allergy Unknown Anaphylaxis Uncoded 11/18/20 15:07 red dyes Allergy Unknown Hives Uncoded 11/18/20 15:07 Active Medications: Current Medications Generic Name Dose Route Start Last Admin Trade Name Tonya PRN Reason Stop Dose Admin Lactated Ringer's 1,000 mls @ 50 mls/hr 07/01/21 07:30 Lr IVCONT .Q20H [facility] Home Medications Medication Instructions Recorded Confirmed Last Taken Type albuterol 90 mcg/actuation aerosol mcg INHALATION 08/12/20 08/26/20 History inhaler mcg cariprazine 6 mg capsule (Vraylar) 6 mg PO DAILY 08/12/20 08/12/20 08/28/20 History cetirizine 10 mg tablet (Zyrtec) 10 mg PO DAILY 08/12/20 08/12/20 08/28/20 History clonazepam 1 mg tablet 1 mg PO DAILY 08/12/20 08/12/20 08/26/20 History 1 mg clozapine 50 mg tablet (Clozaril) 50 mg PO BID 08/12/20 08/12/20 08/28/20 History dexmethylphenidate 10 mg tablet 10 mg PO BID 08/12/20 08/12/20 08/28/20 History diphenhydramine HCl 50 mg capsule 50 mg PO TID PRN 08/12/20 08/12/20 Unknown History (Banophen) epinephrine 0.1 mg/mL injection 0.1 mg IM Q30M PRN 08/12/20 08/12/20 08/26/20 History syringe 0.1 mg famotidine 40 mg tablet 40 mg PO BEDTIME 08/12/20 08/12/20 08/28/20 History fluticasone 100 mcg-salmeterol 50 1 inh INHALATION BID 08/12/20 08/12/20 08/28/20 History mcg/dose blistr powdr for inhalation (Advair Diskus) fluticasone propionate 50 1 spray INTRANASAL BID 08/12/20 08/12/20 08/28/20 History mcg/actuation nasal spray,suspension ipratropium 0.5 mg-albuterol 3 mg 3 ml INHALATION QID 08/12/20 08/12/20 08/26/20 History (2.5 mg base)/3 mL nebulization 3 mL soln levonorgestrel 0.15 mg-ethinyl 1 tab PO DAILY 08/12/20 08/12/20 08/28/20 History estradiol 30 mcg tablets,3 mos pack(91) metoprolol tartrate 25 mg tablet 25 mg PO BID 08/12/20 08/12/20 09/12/20 History 0530 prazosin 5 mg capsule 5 mg PO TID 08/12/20 08/12/20 08/28/20 History temazepam 30 mg capsule 30 mg PO BEDTIME PRN 08/12/20 08/12/20 08/26/20 History 30 mg topiramate 50 mg tablet 50 mg PO BID 08/12/20 08/12/20 08/27/20 History zolpidem 10 mg tablet 10 mg PO BEDTIME PRN 08/12/20 08/12/20 08/26/20 History 10 mg Exam Exam Date and Time: July 01, 2021 0724 Height,Weight and Vital Signs: Height 5 ft 9 in Weight 61.235 kg Pertinent Lab Results Pertinent Lab Results: Laboratory Tests 07/01/21 06:40 Urine Test NEGATIVE Airway Mallampati Class: II TM Dist: >3cm Neck ROM: Full Heart: rrr Lungs: cta Assessment and Plan Assessment Anesthesia Assessment: Anesthesia Plan Discussed and Chart Reviewed Final Anesthetic Review Family History of Problems with Anesthesia: No History of Problems with Anesthesia: No NPO: Yes ASA Class: III Final Preanesthetic Review: No Changes in Pt Med Stat, Meds/Allgs Chart Reviewed, Consent Obtained/Reviewed and Anes Risks/Benef Reviewed Patient Risk: Intermediate Procedure Risk: Intermediate Anesthetic Plan Anesthetic Plan: GA Disposition: Standard PACU
--- NOTE | 2021-07-01 07:38 | HO.ECTPROC ---
ECT Procedure Note Diagnosis/Treatment Date of Service: 07/01/21 Diagnosis: Bipolar disorder Previous ECT Date: 06/29/21 Treatment: Series ECT Settings Device: THYMATRON DGx Electrode Placement: Right Unilateral Program/Pulse Width: 0.25 Energy Percent: 15 Seizure Duration By EEG (in seconds): 59 Medications Administration General Anesthetic: Etomidate (16) Muscle Relaxant: Succinylcholine (100) Ancillary Medications Analgesics: Torodol - Pre ECT Anti-emetics: Zofran - Pre ECT Miscillaneous Medications: Propofol (30) Airway Management Airway Management: Bag Mask Ventilation Treatment Recommendations Electrode Placement: Right Unilateral Program/Pulse Width: 0.25 Energy Percent: 15
[2021-07-01] MEDS: oxyCODONE HCl Immed Release 5 MG TABLET 10 MG PO (08:37)
[2021-07-01] MEDS: Acetaminophen 325 MG TABLET 650 MG PO (08:37)
--- NOTE | 2021-07-01 09:26 | PC.NURSE ---
PATIENT STATES FEELING A LITTLE NAUSEOUS. ZOFRAN ORDER REQUESTED FROM ANA CRISTINA.
[2021-07-01] MEDS: ondansetron HCL 4 MG/2 ML VIAL IVPUSH (09:49)
--- NOTE | 2021-07-01 09:52 | MHC.CARE ---
CARE Team spoke with [facility] training coordinator Shivani, regarding referral for this patient, must be submitted by Smart Sheet, PACU staff does not have access to that form and ED does not have access to patient records. Call to [facility] tank builder supervisor Russ, he stated that CARE Team can take this case, he will call training coordinator and get back to CARE.
[2021-07-01 12:52] LABS: COVID-19 Test Negative (Negative); IDNOW Serial# 08D9AD1C
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
--- NOTE | 2021-07-01 17:18 | PC.NURSE ---
Contact information for father. Xavier Marty Cell phone [phone] Home phone [phone] Work phone [phone] [employer] [email or web address]
--- NOTE | 2021-07-01 19:40 | PC.NURSE ---
Text sent to Dr. Maria Esther Pratt 6:36pm to clarify HS medication order. Patient has only PRN medication, is requesting Temazepam 30 mg. Call placed to MD waiting call back to clarify orders. Text sent to FINISHING RANGE SUPERVISOR crop production advisor Rosa Ibarra as MD has not responded. Waiting response.
[2021-07-01] MEDS: Temazepam 15 MG CAPSULE 30 MG PO (21:30)
[2021-07-01] MEDS: Topiramate 25 MG TABLET 50 MG PO (21:31)
[2021-07-01] MEDS: lamoTRIgine 25 MG TABLET 50 MG PO (21:31)
[2021-07-01] MEDS: Famotidine 20 MG TABLET 40 MG PO (21:31)
[2021-07-01] MEDS: Fluticasone Propionate Nasal 16 GM SPRAY 1 SPRAY NOSTRIL-B (21:34)
[2021-07-01] MEDS: diphenhydrAMINE HCL 25 MG TABLET 50 MG PO (21:42)
[2021-07-01] MEDS: cloZAPine 25 MG TABLET 50 MG PO (21:43)
[2021-07-02 06:00] VITALS: BP 103/53; PULSE 102; RESP 18; TEMP 36.5; O2SAT 97
[2021-07-02 07:03] LABS: MANUAL DIFF FLAG NO
[2021-07-02 07:17] LABS: Basophils Absolute Auto 0.1 X10*3/uL (0.0-0.2); Basophils Percent Auto 1.2 % (0-2); Eosinophils Absolute Auto 0.2 X10*3/uL (0.0-0.4); Eosinophils Percent Auto 4.1 % (0-4); Hematocrit 33.1 % (37-47); Hemoglobin 11.1 g/dl (12.0-16.0); Imm Gran Abs Auto 0.01 X10*3/uL (0.00-0.03); Imm Gran Pct Auto 0.2 % (0.0-0.4); Lymphocytes Absolute Auto 2.1 X10*3/uL (1.2-4.9); Lymphocytes Percent Auto 36.6 % (20-40); Mean Corpuscular HGB Conc 33.5 g/dl (31.0-35.0); Mean Corpuscular Hemoglobin 29.6 pg (27.0-33.0); Mean Corpuscular Volume 88.3 fL (80-98); Monocytes Absolute Auto 0.6 X10*3/uL (0.1-1.2); Monocytes Percent Auto 10.4 % (2-11); Neutrophils Absolute Auto 2.8 X10*3/uL (2.0-8.3); Neutrophils Percent Auto 47.5 % (45-73); Platelet Count 245 X10*3/uL (160-400); Red Blood Count 3.75 X10*6/uL (4.20-5.50); White Blood Count 5.8 X10*3/uL (4.8-10.8)
[2021-07-02 07:38] LABS: Cholesterol 200 mg/dL; HDL Cholesterol 52 mg/dL; LDL Cholesterol Calculated 133 mg/dl; Triglycerides 75 mg/dL
[2021-07-02 08:00] LABS: Thyroid Stimulating Hormone 0.51 uIU/mL (0.32-4.0)
--- NOTE | 2021-07-02 08:00 | ECG_ITS ---
Test Reason : QTC PROLONG MEDS Blood Pressure : / mmHG Vent. Rate : 079 BPM Atrial Rate : 079 BPM P-R Int : 148 ms QRS Dur : 076 ms QT Int : 410 ms P-R-T Axes : 071 059 059 degrees QTc Int : 470 ms Normal sinus rhythm Normal ECG When compared with ECG of 29-MAY-2021 08:19, No significant change was found Referred By: Rosa Ibarra Electronically Signed By:INOCENCIO BRIONES
[2021-07-02 08:19] LABS: Estimated Average Glucose 97 mg/dL
[2021-07-02] MEDS: Topiramate 25 MG TABLET 50 MG PO ×2 (09:06→21:30)
[2021-07-02 09:07] VITALS: BP 103/53; PULSE 102
[2021-07-02] MEDS: lamoTRIgine 25 MG TABLET PO (09:07)
[2021-07-02] MEDS: cloZAPine 25 MG TABLET 50 MG PO ×2 (09:07→21:30)
[2021-07-02] MEDS: Metoprolol Tartrate 25 MG TABLET PO ×2 (09:07→21:38)
[2021-07-02] MEDS: Fluticasone Propionate Nasal 16 GM SPRAY 1 SPRAY NOSTRIL-B ×2 (09:09→21:40)
[2021-07-02 09:22] LABS: Folate 14.3 ng/mL (> or = 4.0); Vitamin B12 306 pg/mL (200-900)
--- NOTE | 2021-07-02 10:04 | PM.EVENT ---
Event Note Date of Service: 07/02/21 Event Note: I attempted to see pt, she declined evaluation you can contact us for any acute medical problem that may rise
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
[2021-07-02] MEDS: Albuterol Sulfate 90 MCG 8 GM INHALER 2 PUFF INHALE (20:49)
[2021-07-02 21:20] VITALS: BP 102/60; PULSE 83; TEMP 36.6; O2SAT 97
[2021-07-02 21:28] VITALS: BP 102/60; PULSE 83
[2021-07-02] MEDS: lamoTRIgine 25 MG TABLET 50 MG PO (21:28)
[2021-07-02] MEDS: Prazosin HCL 1 MG CAPSULE 2 MG PO (21:28)
[2021-07-02] MEDS: Famotidine 20 MG TABLET 40 MG PO (21:31)
[2021-07-02 21:38] VITALS: BP 102/60; PULSE 83
[2021-07-03] VITALS (8 sets, daily range): BP systolic 102–116; BP diastolic 59–73; PULSE 82–97; RESP 14–22; TEMP 36.5–36.6; O2SAT 97–100
--- NOTE | 2021-07-03 02:59 | PC.NURSE ---
ECT-will prepare patient for ECT. Is aware of tenative treatment and aware of NPO status. Is an outpatient of Dr. Flanagan. Pt reports she will not wear hospital johnnies, take off her bra, underwear, jewelry or her clothing. ''They know me I go as I am and I wear my leggings''
--- NOTE | 2021-07-03 08:26 | HO.ANESPROP2 ---
[facility] Active Problems Active Problems: All Active Problems (Updated 07/01/21 @ 15:08 by Parker Flanagan) Bipolar 1 disorder (Acute) History of HPV infection (Acute) Well woman exam with routine gynecological exam (Acute) Past Medical History Medical History Anxiety Bipolar 1 disorder Depression Deviated septum History of electroconvulsive therapy Vasovagal episode Functional capacity: independent ambulation Patient : No Family History Family history of problems with anesthesia: No Surgical History Surgical History History of bunionectomy History of Problems with Anesthesia: No Social History Social History Household Members: None Housing: Apartment Are you a primary healthcare administration intern to a significant other at home: No Do you presently have visiting nurse or other home services: No Patient Tobacco Use Status: Never used Tobacco Second Hand Smoke Exposure: No Use of substances other than those prescribed or required for medical reasons: No Currently Displaying Signs/Symptoms of Drug Intoxication Withdrawal: No Have you been hit, kicked, punched, or otherwise hurt by someone within the past year? If so, by whom?: No Do you feel safe in your current relationship?: No Current Relationship Is there a partner from a previous relationship who is making you feel unsafe now?: No Are you made to feel afraid or neglected: No Spiritual Healthcare Practices: Vanessa marin Taoist Healthcare Practices: Attends [facility] Jainism Are you DNR?: No Advance Directives: No Advance Directives Information Provided: Yes Advance Directives on File: Yes (organ donor) Healthcare Proxy: No Guardian: No Do you have thoughts of harming others: None Do you have a plan to hurt others: No Plan Recently lost weight without trying: No Nutrition Risks: Anorexia and Binging/Purging service: No Sexual orientation: Did not discuss. Meds Allergies Allergy/AdvReac Type Severity Reaction Status Date / Time adhesive tape [ADHESIVE TAPE] Allergy Unknown unknown Verified 11/18/20 15:07 bee pollen [BEE STINGS] Allergy Unknown anaphylaxis Verified 11/18/20 15:07 Iodinated Contrast Media Allergy Unknown unknown Verified 11/18/20 15:07 [CONTRAST, IV] metaxalone [From SKELAXIN] Allergy Unknown unknown Verified 11/18/20 15:07 monocryl/vicryl sutures Allergy Unknown unknown Verified 11/18/20 15:07 morphine [MORPHINE] Allergy Unknown unknown Verified 11/18/20 15:07 moxifloxacin [From AVELOX] Allergy Unknown unknown Verified 11/18/20 15:07 orange [ORANGES] Allergy Unknown anaphylaxis Verified 11/18/20 15:07 red dye [RED DYE] Allergy Unknown unknown Verified 11/18/20 15:07 Sulfa (Sulfonamide Allergy Unknown UNKNOWN Verified 11/18/20 15:07 Antibiotics) [SULFA (SULFONAMIDE ANTIBIOTICS)] lamotrigine [From LAMICTAL] AdvReac Intermediate hx of Verified 11/18/20 15:07 yennifer on doses greater that 200 mg Adhesive Bandages Allergy Unknown Hives Uncoded 11/18/20 15:07 bees/wasps Allergy Unknown Anaphylaxis Uncoded 11/18/20 15:07 ivp contrast dye Allergy Unknown Hives Uncoded 11/18/20 15:07 lychees Allergy Unknown Hives Uncoded 11/18/20 15:07 oranges Allergy Unknown Anaphylaxis Uncoded 11/18/20 15:07 red dyes Allergy Unknown Hives Uncoded 11/18/20 15:07 Active Medications: Current Medications Generic Name Dose Route Start Last Admin Trade Name Freq PRN Reason Stop Dose Admin Acetaminophen 650 mg 07/01/21 12:01 Acetaminophen 325 Mg Tablet PO Q6H PRN Headache/Pain Mild Scale (1-3) Al Hydroxide/Mg Hydroxide 30 ml 07/01/21 12:01 Magnesium Hydrox/Alum Hydrox 30 Ml Oral.Susp PO Q6H PRN Heartburn/Nausea Albuterol Sulfate 2 puff 07/01/21 17:35 07/02/21 20:49 Albuterol Sulfate 90 Mcg 8 Gm Inhaler INHALE 2 puff Q4H PRN Administration Shortness of Breath Albuterol/Ipratropium 3 ml 07/02/21 08:00 07/02/21 21:40 Albuterol/Iprat 2.5/0.5mg 3 Ml Ampul.Neb INHALE Not Given RQID [place]O Clonazepam 1 mg 07/01/21 22:56 Clonazepam 1 Mg Tablet PO BID PRN Anxiety Clozapine 50 mg 07/01/21 21:00 07/02/21 21:30 Clozapine 25 Mg Tablet PO 50 mg BID [place]O Administration Diphenhydramine HCl 50 mg 07/01/21 20:55 07/01/21 21:42 Diphenhydramine Hcl 25 Mg Tablet PO 50 mg TID PRN Administration Allergic Reaction Epinephrine 0.3 mg 07/01/21 20:52 Epinephrine 1 Mg/Ml Vial IM STAT PRN severe citrus allergy (orange) Famotidine 40 mg 07/01/21 21:00 07/02/21 21:31 Famotidine 20 Mg Tablet PO 40 mg BEDTIME AUG[place]O Administration Fluticasone Propionate 1 spray 07/01/21 21:00 07/02/21 21:40 Fluticasone Propionate Nasal 16 Gm [place] NOSTRIL-B 1 spray BID [place]O Administration Hydroxyzine HCl 25 mg 07/01/21 12:01 Hydroxyzine Hcl 25 Mg Tablet PO BEDTIME PRN Anxiety Lamotrigine 25 mg 07/02/21 09:00 07/02/21 09:07 Lamotrigine 25 Mg Tablet PO 25 mg DAILY [place]O Administration Lamotrigine 50 mg 07/01/21 21:00 07/02/21 21:28 Lamotrigine 25 Mg Tablet PO 50 mg BEDTIME AUG[place]O Administration Magnesium Hydroxide 30 ml 07/01/21 12:01 Milk Of Magnesia 30 Ml Oral.Susp PO DAILY PRN Constipation Metoprolol Tartrate 25 mg 07/02/21 21:00 07/02/21 21:38 Metoprolol Tartrate 25 Mg Tablet PO 25 mg BEDTIME AUG[place]O Administration Protocol Patient Own 1 each 07/02/21 09:00 07/02/21 09:09 Medication ( BUCCAL 1 each Levonorgestrel And DAILY AUG[place]O Administration Ethinyl Estradiol 0. 15/0.03 Mg) Patient Own 1 each 07/02/21 09:00 07/02/21 09:06 Medication ( PO 1 each Dexmethylphenidate DAILY [place]O Administration Er 40 Mg) Ondansetron HCl 4 mg 07/01/21 20:50 Ondansetron Odt 4 Mg Tab.Rapdis TRANSLINGU BID PRN Nausea Prazosin HCl 2 mg 07/01/21 21:00 07/02/21 21:28 Prazosin Hcl 1 Mg Capsule PO 2 mg TID AUG[place]O Administration Protocol Temazepam 30 mg 07/01/21 20:22 07/01/21 21:30 Temazepam 15 Mg Capsule PO 30 mg BEDTIME PRN Administration insomnia Topiramate 50 mg 07/01/21 21:00 07/02/21 21:30 Topiramate 25 Mg Tablet PO 50 mg BID [place] Administration Trazodone HCl 50 mg 07/01/21 12:01 Trazodone Hcl 50 Mg Tablet PO BEDTIME PRN Insomnia Home Medications Medication Instructions Recorded Confirmed Last Taken Type albuterol 90 mcg/actuation aerosol mcg INHALATION 08/12/20 08/26/20 History inhaler mcg cariprazine 6 mg capsule (Vraylar) 6 mg PO DAILY 08/12/20 08/12/20 08/28/20 History cetirizine 10 mg tablet (Zyrtec) 10 mg PO DAILY 08/12/20 08/12/20 08/28/20 History clonazepam 1 mg tablet 1 mg PO DAILY 08/12/20 08/12/20 08/26/20 History 1 mg clozapine 50 mg tablet (Clozaril) 50 mg PO BID 08/12/20 08/12/20 08/28/20 History dexmethylphenidate 10 mg tablet 10 mg PO BID 08/12/20 08/12/20 08/28/20 History diphenhydramine HCl 50 mg capsule 50 mg PO TID PRN 08/12/20 08/12/20 Unknown History (Banophen) epinephrine 0.1 mg/mL injection 0.1 mg IM Q30M PRN 08/12/20 08/12/20 08/26/20 History syringe 0.1 mg famotidine 40 mg tablet 40 mg PO BEDTIME 08/12/20 08/12/20 08/28/20 History fluticasone 100 mcg-salmeterol 50 1 inh INHALATION BID 08/12/20 08/12/20 08/28/20 History mcg/dose blistr powdr for inhalation (Advair Diskus) fluticasone propionate 50 1 spray INTRANASAL BID 08/12/20 08/12/20 08/28/20 History mcg/actuation nasal spray,suspension ipratropium 0.5 mg-albuterol 3 mg 3 ml INHALATION QID 08/12/20 08/12/20 08/26/20 History (2.5 mg base)/3 mL nebulization 3 mL soln levonorgestrel 0.15 mg-ethinyl 1 tab PO DAILY 08/12/20 08/12/20 08/28/20 History estradiol 30 mcg tablets,3 mos pack(91) metoprolol tartrate 25 mg tablet 25 mg PO BID 08/12/20 08/12/20 09/12/20 History 0530 prazosin 5 mg capsule 5 mg PO TID 08/12/20 08/12/20 08/28/20 History temazepam 30 mg capsule 30 mg PO BEDTIME PRN 08/12/20 08/12/20 08/26/20 History 30 mg topiramate 50 mg tablet 50 mg PO BID 08/12/20 08/12/20 08/27/20 History zolpidem 10 mg tablet 10 mg PO BEDTIME PRN 08/12/20 08/12/20 08/26/20 History 10 mg Exam Exam Date and Time: July 03, 2021 0826 Height,Weight and Vital Signs: Height 5 ft 9 in Weight 61.235 kg Last Vital Signs Temp 97.8 F 07/02/21 21:20 Pulse 83 07/02/21 21:38 Resp 18 07/02/21 06:00 BP 102/60 07/02/21 21:38 Pulse Ox 97 07/02/21 21:20 Pertinent Lab Results Pertinent Lab Results: Laboratory Tests 07/01/21 07/01/21 07/02/21 06:40 12:25 06:53 WBC 5.8 RBC 3.75 L Hgb 11.1 L Hct 33.1 L MCV 88.3 MCH 29.6 MCHC 33.5 RDW 13.0 Plt Count 245 MPV 10.0 Immature Gran % (Auto) 0.2 Neut % (Auto) 47.5 Lymph % (Auto) 36.6 [place] % (Auto) 10.4 Eos % (Auto) 4.1 H Baso % (Auto) 1.2 Lymph # (Auto) 2.1 [place] # (Auto) 0.6 Eos # (Auto) 0.2 Baso # (Auto) 0.1 Abs Immat Gran (auto) 0.01 Absolute Neuts (auto) 2.8 Absolute Nucleated RBC 0.000 Nucleated RBC % (auto) 0.0 Estimat Average Glucose Hemoglobin A1c % Triglycerides Cholesterol LDL Cholesterol, Calc HDL Cholesterol Vitamin B12 Folate TSH Urine Test NEGATIVE COVID-19 (DEXTER) Negative COVID-19 Clin Com See Note 07/02/21 07/02/21 07/02/21 06:53 06:53 06:53 WBC RBC Hgb Hct MCV MCH MCHC RDW Plt Count MPV Immature Gran % (Auto) Neut % (Auto) Lymph % (Auto) [place] % (Auto) Eos % (Auto) Baso % (Auto) Lymph # (Auto) [place] # (Auto) Eos # (Auto) Baso # (Auto) Abs Immat Gran (auto) Absolute Neuts (auto) Absolute Nucleated RBC Nucleated RBC % (auto) Estimat Average Glucose 97 Hemoglobin A1c % 5.0 Triglycerides 75 Cholesterol 200 LDL Cholesterol, Calc 133 HDL Cholesterol 52 Vitamin B12 306 Folate 14.3 TSH 0.51 Urine Test COVID-19 (DEXTER) COVID-19 Clin Com Airway Mallampati Class: II TM Dist: >3cm Neck ROM: Full Heart: RRR Lungs: CTA Assessment and Plan Final Anesthetic Review Family History of Problems with Anesthesia: No History of Problems with Anesthesia: No
--- NOTE | 2021-07-03 09:14 | MHC.SHP ---
Pre-Procedural Eval Section A Date of Service: 07/03/21 The patient is an INPATIENT: Yes Changes since office visit: Yes Cold of Flu in the past 2 weeks, Yes New Medical Problems, Yes Changes in Medication and Yes Patient answered all questions The History & Physical has been completed within 30 days and I have reviewed it.: No Section B Chief Complaint: depression Allergies: Allergies Allergy/AdvReac Type Severity Reaction Status Date / Time adhesive tape [ADHESIVE TAPE] Allergy Unknown unknown Verified 11/18/20 15:07 bee pollen [BEE STINGS] Allergy Unknown anaphylaxis Verified 11/18/20 15:07 Iodinated Contrast Media Allergy Unknown unknown Verified 11/18/20 15:07 [CONTRAST, IV] metaxalone [From SKELAXIN] Allergy Unknown unknown Verified 11/18/20 15:07 monocryl/vicryl sutures Allergy Unknown unknown Verified 11/18/20 15:07 morphine [MORPHINE] Allergy Unknown unknown Verified 11/18/20 15:07 moxifloxacin [From AVELOX] Allergy Unknown unknown Verified 11/18/20 15:07 orange [ORANGES] Allergy Unknown anaphylaxis Verified 11/18/20 15:07 red dye [RED DYE] Allergy Unknown unknown Verified 11/18/20 15:07 Sulfa (Sulfonamide Allergy Unknown UNKNOWN Verified 11/18/20 15:07 Antibiotics) [SULFA (SULFONAMIDE ANTIBIOTICS)] lamotrigine [From LAMICTAL] AdvReac Intermediate hx of Verified 11/18/20 15:07 yennifer on doses greater that 200 mg Adhesive Bandages Allergy Unknown Hives Uncoded 11/18/20 15:07 bees/wasps Allergy Unknown Anaphylaxis Uncoded 11/18/20 15:07 ivp contrast dye Allergy Unknown Hives Uncoded 11/18/20 15:07 lychees Allergy Unknown Hives Uncoded 11/18/20 15:07 oranges Allergy Unknown Anaphylaxis Uncoded 11/18/20 15:07 red dyes Allergy Unknown Hives Uncoded 11/18/20 15:07 Plan I have reviewed the history and physical and performed a pertinent physical examination on my patient. No changes have occurred unless specified.
--- NOTE | 2021-07-03 09:15 | P.PCN_ITS ---
ECT Procedure Note Diagnosis/Treatment Date of Service: 07/03/21 Diagnosis: Bipolar disorder Previous ECT Date: 07/01/21 Treatment: Series Interval Clinical Notes: The patient is now inpatient and she reported less dys phoria but still some hypomania ECT Settings Device: THYMATRON DGx Electrode Placement: Right Unilateral Program/Pulse Width: 0.25 Energy Percent: 15 Seizure Duration By EEG (in seconds): 22 Medications Administration General Anesthetic: Etomidate (14) Muscle Relaxant: Succinylcholine (100) Ancillary Medications Analgesics: Torodol - Pre ECT Anti-emetics: Zofran - Pre ECT Miscillaneous Medications: Propofol (30) Airway Management Airway Management: Bag Mask Ventilation Treatment Recommendations No Changes Recommended: No change Pt Tolerated Procedure w/o Issue: Yes
[2021-07-03] MEDS: Albuterol/Iprat 2.5/0.5MG 3 ML AMPUL.NEB INHALE (10:26)
[2021-07-03] MEDS: Acetaminophen 325 MG TABLET 650 MG PO (10:37)
[2021-07-03] MEDS: oxyCODONE HCl Immed Release 5 MG TABLET 10 MG PO (10:37)
[2021-07-03] MEDS: lamoTRIgine 25 MG TABLET PO (11:10)
[2021-07-03] MEDS: cloZAPine 25 MG TABLET 50 MG PO (11:10)
[2021-07-03] MEDS: Topiramate 25 MG TABLET 50 MG PO (11:11)
[2021-07-03] MEDS: Fluticasone Propionate Nasal 16 GM SPRAY 1 SPRAY NOSTRIL-B (11:12)
--- NOTE | 2021-07-03 13:34 | PM.PSYDC ---
DS: Providers Provider Date of Service: 07/03/21 Date of admission: 07/01/21 12:02 Date of discharge: 07/03/21 Primary care physician: Brook Malik MD Attending physician on discharge: Parker Flanagan DS: Diagnosis Discharge Diagnosis (1) Bipolar 1 disorder: Status: Acute DS: Medications Discharge Medications Home Medications: Home Medications Medication Instructions Recorded Confirmed albuterol 90 mcg/actuation aerosol mcg INHALATION 08/12/20 inhaler cariprazine 6 mg capsule (Vraylar) 6 mg PO DAILY 08/12/20 08/12/20 cetirizine 10 mg tablet (Zyrtec) 10 mg PO DAILY 08/12/20 08/12/20 clonazepam 1 mg tablet 1 mg PO DAILY 08/12/20 08/12/20 clozapine 50 mg tablet (Clozaril) 50 mg PO BID 08/12/20 08/12/20 dexmethylphenidate 10 mg tablet 10 mg PO BID 08/12/20 08/12/20 diphenhydramine HCl 50 mg capsule 50 mg PO TID PRN 08/12/20 08/12/20 (Banophen) epinephrine 0.1 mg/mL injection 0.1 mg IM Q30M PRN 08/12/20 08/12/20 syringe famotidine 40 mg tablet 40 mg PO BEDTIME 08/12/20 08/12/20 fluticasone 100 mcg-salmeterol 50 1 inh INHALATION BID 08/12/20 08/12/20 mcg/dose blistr powdr for inhalation (Advair Diskus) fluticasone propionate 50 1 spray INTRANASAL BID 08/12/20 08/12/20 mcg/actuation nasal spray,suspension ipratropium 0.5 mg-albuterol 3 mg 3 ml INHALATION QID 08/12/20 08/12/20 (2.5 mg base)/3 mL nebulization soln levonorgestrel 0.15 mg-ethinyl 1 tab PO DAILY 08/12/20 08/12/20 estradiol 30 mcg tablets,3 mos pack(91) metoprolol tartrate 25 mg tablet 25 mg PO BID 08/12/20 08/12/20 prazosin 5 mg capsule 5 mg PO TID 08/12/20 08/12/20 temazepam 30 mg capsule 30 mg PO BEDTIME PRN 08/12/20 08/12/20 topiramate 50 mg tablet 50 mg PO BID 08/12/20 08/12/20 zolpidem 10 mg tablet 10 mg PO BEDTIME PRN 08/12/20 08/12/20 Previous Rx's Medication Instructions Recorded levonorgestrel 0.15 mg-ethinyl 1 tab PO DAILY 91 Days #91 ea 03/04/21 estradiol 30 mcg tablets,3 mos pack() Mental Status Exam Mental Status Exam Patient Appearance: Well Grooomed Patient Orientation: Person, Place, Time and Situation Level of Consciousness: Awake and Appropriate Patient Behavior: Cooperative Mood Description: Constricted Affect Description: Constricted Patient Cognition Impaired: No Speech Pattern: Clear Memory Description: Intact Hallucinations: None Delusions: Not Present Thought Process: Goal Oriented Thought Content: positive for Circumstantial Judgement: Fair Data Data Completed and Pending Completed studies during hospitalization [Text1]: 07/01/21 07/01/21 07/02/21 06:40 12:25 06:53 WBC 5.8 RBC 3.75 L Hgb 11.1 L Hct 33.1 L MCV 88.3 MCH 29.6 MCHC 33.5 RDW 13.0 Plt Count 245 MPV 10.0 Immature Gran % (Auto) 0.2 Neut % (Auto) 47.5 Lymph % (Auto) 36.6 Petroleum % (Auto) 10.4 Eos % (Auto) 4.1 H Baso % (Auto) 1.2 Lymph # (Auto) 2.1 Petroleum # (Auto) 0.6 Eos # (Auto) 0.2 Baso # (Auto) 0.1 Abs Immat Gran (auto) 0.01 Absolute Neuts (auto) 2.8 Absolute Nucleated RBC 0.000 Nucleated RBC % (auto) 0.0 Estimat Average Glucose Hemoglobin A1c % Triglycerides Cholesterol LDL Cholesterol, Calc HDL Cholesterol Vitamin B12 Folate TSH Urine Test NEGATIVE Clozapine Norclozapine COVID-19 (DEXTER) Negative COVID-19 Clin Com See Note 07/02/21 07/02/21 07/02/21 06:53 06:53 06:53 WBC RBC Hgb Hct MCV MCH MCHC RDW Plt Count MPV Immature Gran % (Auto) Neut % (Auto) Lymph % (Auto) Petroleum % (Auto) Eos % (Auto) Baso % (Auto) Lymph # (Auto) Petroleum # (Auto) Eos # (Auto) Baso # (Auto) Abs Immat Gran (auto) Absolute Neuts (auto) Absolute Nucleated RBC Nucleated RBC % (auto) Estimat Average Glucose 97 Hemoglobin A1c % 5.0 Triglycerides 75 Cholesterol 200 LDL Cholesterol, Calc 133 HDL Cholesterol 52 Vitamin B12 306 Folate 14.3 TSH 0.51 Urine Test Clozapine Norclozapine COVID-19 (DEXTER) COVID-19 Clin Com 07/02/21 06:53 WBC RBC Hgb Hct MCV MCH MCHC RDW Plt Count MPV Immature Gran % (Auto) Neut % (Auto) Lymph % (Auto) Petroleum % (Auto) Eos % (Auto) Baso % (Auto) Lymph # (Auto) Petroleum # (Auto) Eos # (Auto) Baso # (Auto) Abs Immat Gran (auto) Absolute Neuts (auto) Absolute Nucleated RBC Nucleated RBC % (auto) Estimat Average Glucose Hemoglobin A1c % Triglycerides Cholesterol LDL Cholesterol, Calc HDL Cholesterol Vitamin B12 Folate TSH Urine Test Clozapine Pending Norclozapine Pending COVID-19 (DEXTER) COVID-19 Clin Com DS: Summary Hospital Course Hospital Course: The patient was initially admitted from PACU, after ECT, due to unstable mood with depressive symptoms elicited by depressed mood, anhedonia, lack of energy and feelings of hopelessness and hypomanic symptoms elicited was flight of ideas rapid speech and impulsivity. She was admitted into the unit and apparently, she felt much better. She adamantly denies suicidal ideation, she is able to contract for safety. We did minor medication changes such as a discontinuation of metoprolol with no evidence of side effects or adverse reactions. Today of the discharge, the patient had her ECT and after ECT her affect was full and appropriate, able to contract for safety and willing to continue treatment as an outpatient. Her regular psychiatrist, Dr. Barbosa was contact and a sooner appointment was arranged. Six there were no safety concerns discharge planning was discussed. Time spent discussing smoking cessation with patient: 3 to 10 minutes Status at Discharge Cognitive/behavioral status at discharge: Stable Functional status at discharge: independent ambulation Overall status at discharge: patient is back to baseline Time Spent with Patient Time attestation: Total time spent providing and/or coordinating discharge services: Time spent: Less than 30 minutes Discharge Plan Discharge Patient Disposition: Home, Self-Care Discharge Diagnosis: Bipolar disorder type 1 most recent episode mixed Referrals: Dr. Barbosa (psychiatrist) [Other] - 07/07/21 11:00 am (Telehealth appointment) Therapy [Other] - 1 Week (You will remain on the waitlist for assignment of a therapist, but someone will be reaching out next week to schedule a bridge therapy appointment) Brook Malik MD [Primary Care Provider] - 1 Week Discharge Medications: New prazosin 1 mg Capsule 2 mg PO TID 14 Days Qty: 84 RF: 0 lamotrigine 25 mg Tablet 25 mg PO DAILY Qty: 14 RF: 0 lamotrigine 25 mg Tablet 50 mg PO BEDTIME Qty: 28 RF: 0 Continued ipratropium-albuterol 0.5 mg-3 mg(2.5 mg base)/3 mL Solution For Nebulization 3 ml INHALATION QID RF: 0 diphenhydramine HCl [Banophen] 50 mg Capsule 50 mg PO TID PRN (Reason: Allergy Symptoms) RF: 0 clonazepam 1 mg Tablet 1 mg PO DAILY RF: 0 dexmethylphenidate 10 mg Tablet 10 mg PO BID RF: 0 epinephrine 0.1 mg/mL Syringe 0.1 mg IM Q30M PRN (Reason: Allergic Reaction) RF: 0 albuterol 90 mcg/actuation Aerosol INHALATION RF: 0 fluticasone propion-salmeterol [Advair Diskus] 100-50 mcg/dose Blister With Device 1 inh INHALATION BID RF: 0 famotidine 40 mg Tablet 40 mg PO BEDTIME RF: 0 fluticasone propionate 50 mcg/actuation [place],Suspension 1 spray INTRANASAL BID RF: 0 cetirizine [Zyrtec] 10 mg Tablet 10 mg PO DAILY RF: 0 temazepam 30 mg Capsule 30 mg PO BEDTIME PRN (Reason: Insomnia) RF: 0 zolpidem 10 mg Tablet 10 mg PO BEDTIME PRN (Reason: Insomnia) RF: 0 levonorgestrel-ethinyl estrad 0.15 mg-30 mcg (91) Tablets,Dose Pack,3 Month 1 tab PO DAILY RF: 0 topiramate 50 mg Tablet 50 mg PO BID RF: 0 clozapine [Clozaril] 50 mg Tablet 50 mg PO BID RF: 0 Discontinued levonorgestrel-ethinyl estrad 0.15 mg-30 mcg (91) tablets,dose pack,3 month 1 tab PO DAILY 91 Days Qty: 91 RF: 4 prazosin 5 mg Capsule 5 mg PO TID RF: 0 metoprolol tartrate 25 mg Tablet 25 mg PO BID RF: 0 Vraylar 6 mg Capsule 6 mg PO DAILY RF: 0 Discharge Orders: Discharge Order (Routine); Ordered 07/03/21 Ordered By: Parker Flanagan Diet: regular diet Activity on Discharge: As tolerated Stand Alone Forms: Patient Portal Discharge page Care Plan Goals: Care Plan Goals achieved on admission Health Concerns: Continue treatment with PCP Plan of Treatment: ECT as scheduled Continue outpatient providers Assessment: Evelyn female with a long history of bipolar type 1, on ECT and Clozaril admitted for mixed symptoms, at this moment the patient is at baseline with no safety concerns.
--- NOTE | 2021-07-03 15:30 | HO.POSTANES ---
Post Anesthesia Evaluation Post Anesthesia Evaluation Vital Signs: Vital Signs Temp Pulse Resp BP Pulse Ox 07/03/21 10:41 97.7 F 82 16 109/62 99 07/03/21 10:27 90 07/03/21 10:26 85 18 116/59 L 97 07/03/21 10:11 88 22 H 102/73 100 07/03/21 10:06 86 16 110/66 98 07/03/21 10:01 94 14 110/60 100 07/03/21 09:56 97.8 F 95 16 115/70 100 07/03/21 08:36 97.9 F 97 16 116/71 97 Anesthesia: General Mental Status: Awake Pain Control: Satisfactory Nausea/Vomiting: None Hydration: Adequate Anesthesia-Related Issues: No Anes. Related Issues
[2021-07-09 17:11] LABS: Clozapine (Clozaril) 32 mcg/L; Norclozapine 15 mcg/L (25-400)
== END 2021-07-03 18:29 | disposition home or self-care (01) | DRG 885 ==
LOC: HO.PADLT16 12:24
PROVIDERS: Psychiatry & Neurology Psychiatry; Admitting Provider Psychiatry & Neurology Psychiatry; PCP Internal Medicine; Visit Provider Psychiatry & Neurology Psychiatry
PROC: (CPT 90870; principal; 2021-07-01 08:00)
PROC: GZB4ZZZ Other Electroconvulsive Therapy (ICD-10-PCS; CPT 90870; principal; 2021-07-03 10:00)
DX: F31.60 Bipolar disorder, current episode mixed, unspecified (principal); Z20.822 Contact with and (suspected) exposure to COVID-19; Z88.5 Allergy status to narcotic agent; Z79.51 Long term (current) use of inhaled steroids; Z79.899 Other long term (current) drug therapy
CPT/HCPCS: 36415; 80061; 80159; 81025; 82607; 82746; 83036; 84443; 85025; 87635; 90870; 93005; 94640; 94644; 94645; J0330; J1885; J2405; Q0163

== ENCOUNTER 2021-07-08 06:18 | Day surgery (SDC) | payer OTHER, SELFPAY ==
[2021-07-08] VITALS (8 sets, daily range): BP systolic 104–149; BP diastolic 65–79; PULSE 61–116; RESP 16–27; TEMP 36.1–36.6; O2SAT 93–100; BMI 20.7
[2021-07-08 06:43] LABS: UPreg QC Valid YES; Urine Pregnancy NEGATIVE (NEGATIVE)
[2021-07-08] MEDS: Lactated Ringers 1,000 ML 50 ML IVCONT (06:47)
--- NOTE | 2021-07-08 07:08 | MHC.SHP ---
Pre-Procedural Eval Section A Date of Service: 07/08/21 The patient is an INPATIENT: No Changes since office visit: Yes Changes in Medication and Yes Patient answered all questions; No Cold of Flu in the past 2 weeks and No New Medical Problems The History & Physical has been completed within 30 days and I have reviewed it.: Yes Section B Chief Complaint: major depressive disorder Allergies: Allergies Allergy/AdvReac Type Severity Reaction Status Date / Time adhesive tape [ADHESIVE TAPE] Allergy Unknown unknown Verified 11/18/20 15:07 bee pollen [BEE STINGS] Allergy Unknown anaphylaxis Verified 11/18/20 15:07 Iodinated Contrast Media Allergy Unknown unknown Verified 11/18/20 15:07 [CONTRAST, IV] metaxalone [From SKELAXIN] Allergy Unknown unknown Verified 11/18/20 15:07 monocryl/vicryl sutures Allergy Unknown unknown Verified 11/18/20 15:07 morphine [MORPHINE] Allergy Unknown unknown Verified 11/18/20 15:07 moxifloxacin [From AVELOX] Allergy Unknown unknown Verified 11/18/20 15:07 orange [ORANGES] Allergy Unknown anaphylaxis Verified 11/18/20 15:07 red dye [RED DYE] Allergy Unknown unknown Verified 11/18/20 15:07 Sulfa (Sulfonamide Allergy Unknown UNKNOWN Verified 11/18/20 15:07 Antibiotics) [SULFA (SULFONAMIDE ANTIBIOTICS)] lamotrigine [From LAMICTAL] AdvReac Intermediate hx of Verified 11/18/20 15:07 yennifer on doses greater that 200 mg Adhesive Bandages Allergy Unknown Hives Uncoded 11/18/20 15:07 bees/wasps Allergy Unknown Anaphylaxis Uncoded 11/18/20 15:07 ivp contrast dye Allergy Unknown Hives Uncoded 11/18/20 15:07 lychees Allergy Unknown Hives Uncoded 11/18/20 15:07 oranges Allergy Unknown Anaphylaxis Uncoded 11/18/20 15:07 red dyes Allergy Unknown Hives Uncoded 11/18/20 15:07 Plan I have reviewed the history and physical and performed a pertinent physical examination on my patient. No changes have occurred unless specified.
--- NOTE | 2021-07-08 07:09 | HO.ECTPROC ---
ECT Procedure Note Diagnosis/Treatment Date of Service: 07/08/21 Diagnosis: Bipolar disorder Treatment: Maintenance Interval Clinical Notes: pt with manic sx mixed states feels ect helpful ECT Settings Device: THYMATRON DGx Electrode Placement: Right Unilateral Program/Pulse Width: 0.25 Energy Percent: 25 Seizure Duration By EEG (in seconds): 63 Medications Administration General Anesthetic: Etomidate (16 plus 4) Muscle Relaxant: Succinylcholine (80) Ancillary Medications Analgesics: Torodol - Pre ECT Anti-emetics: Zofran - Pre ECT Miscillaneous Medications: Midazolam Airway Management Airway Management: Bag Mask Ventilation Treatment Recommendations No Changes Recommended: No change Notes: f.u tx in 1 week
--- NOTE | 2021-07-08 07:32 | HO.ANESPROP2 ---
HPI - Anesthesia Eval Consult details Narrative: 36 yo female patient for ECT PMFSH Active Problems Active Problems: All Active Problems (Updated 07/01/21 @ 15:08 by Parker Flanagan) Bipolar 1 disorder (Acute) History of HPV infection (Acute) Well woman exam with routine gynecological exam (Acute) Past Medical History Medical History Anxiety Bipolar 1 disorder Depression Deviated septum History of electroconvulsive therapy Vasovagal episode Family History Family history of problems with anesthesia: No Surgical History Surgical History History of bunionectomy History of Problems with Anesthesia: No Social History Social History Household Members: None Housing: Apartment Are you a primary director of managed care to a significant other at home: No Do you presently have visiting nurse or other home services: No Patient Tobacco Use Status: Never used Tobacco Second Hand Smoke Exposure: No Use of substances other than those prescribed or required for medical reasons: No Are you DNR?: No Advance Directives: No Advance Directives Information Provided: Yes Recently lost weight without trying: No Nutrition Risks: No Nutritional Risk service: No Sexual orientation: Did not discuss. Meds Allergies Allergy/AdvReac Type Severity Reaction Status Date / Time adhesive tape [ADHESIVE TAPE] Allergy Unknown unknown Verified 11/18/20 15:07 bee pollen [BEE STINGS] Allergy Unknown anaphylaxis Verified 11/18/20 15:07 Iodinated Contrast Media Allergy Unknown unknown Verified 11/18/20 15:07 [CONTRAST, IV] metaxalone [From SKELAXIN] Allergy Unknown unknown Verified 11/18/20 15:07 monocryl/vicryl sutures Allergy Unknown unknown Verified 11/18/20 15:07 morphine [MORPHINE] Allergy Unknown unknown Verified 11/18/20 15:07 moxifloxacin [From AVELOX] Allergy Unknown unknown Verified 11/18/20 15:07 orange [ORANGES] Allergy Unknown anaphylaxis Verified 11/18/20 15:07 red dye [RED DYE] Allergy Unknown unknown Verified 11/18/20 15:07 Sulfa (Sulfonamide Allergy Unknown UNKNOWN Verified 11/18/20 15:07 Antibiotics) [SULFA (SULFONAMIDE ANTIBIOTICS)] lamotrigine [From LAMICTAL] AdvReac Intermediate hx of Verified 11/18/20 15:07 yennifer on doses greater that 200 mg Adhesive Bandages Allergy Unknown Hives Uncoded 11/18/20 15:07 bees/wasps Allergy Unknown Anaphylaxis Uncoded 11/18/20 15:07 ivp contrast dye Allergy Unknown Hives Uncoded 11/18/20 15:07 lychees Allergy Unknown Hives Uncoded 11/18/20 15:07 oranges Allergy Unknown Anaphylaxis Uncoded 11/18/20 15:07 red dyes Allergy Unknown Hives Uncoded 11/18/20 15:07 Active Medications: Current Medications Generic Name Dose Route Start Last Admin Trade Name Freq PRN Reason Stop Dose Admin Acetaminophen 650 mg 07/08/21 07:19 Acetaminophen 325 Mg Tablet PO ONCE PRN Pain, Mild (Pain Scale 1-3) Lactated Ringer's 1,000 mls @ 50 mls/hr 07/08/21 07:15 Lr IVCONT .Q20H [place] Ondansetron HCl 4 mg 07/08/21 07:19 Ondansetron Hcl 4 Mg/2 Ml Vial IVPUSH ONCE PRN Nausea and Vomiting Oxycodone HCl 10 mg 07/08/21 07:19 Oxycodone Hcl Immed Release 5 Mg Tablet PO ONCE PRN Pain, Severe (Pain Scale 7-10) Home Medications Medication Instructions Recorded Confirmed Last Taken Type albuterol 90 mcg/actuation aerosol mcg INHALATION 08/12/20 08/26/20 History inhaler mcg cetirizine 10 mg tablet (Zyrtec) 10 mg PO DAILY 08/12/20 08/12/20 08/28/20 History clonazepam 1 mg tablet 1 mg PO DAILY 08/12/20 08/12/20 08/26/20 History 1 mg clozapine 50 mg tablet (Clozaril) 50 mg PO BID 08/12/20 08/12/20 08/28/20 History dexmethylphenidate 10 mg tablet 10 mg PO BID 08/12/20 08/12/20 08/28/20 History diphenhydramine HCl 50 mg capsule 50 mg PO TID PRN 08/12/20 08/12/20 Unknown History (Banophen) epinephrine 0.1 mg/mL injection 0.1 mg IM Q30M PRN 08/12/20 08/12/20 08/26/20 History syringe 0.1 mg famotidine 40 mg tablet 40 mg PO BEDTIME 08/12/20 08/12/20 08/28/20 History fluticasone 100 mcg-salmeterol 50 1 inh INHALATION BID 08/12/20 08/12/20 08/28/20 History mcg/dose blistr powdr for inhalation (Advair Diskus) fluticasone propionate 50 1 spray INTRANASAL BID 08/12/20 08/12/20 08/28/20 History mcg/actuation nasal spray,suspension ipratropium 0.5 mg-albuterol 3 mg 3 ml INHALATION QID 08/12/20 08/12/20 08/26/20 History (2.5 mg base)/3 mL nebulization 3 mL soln levonorgestrel 0.15 mg-ethinyl 1 tab PO DAILY 08/12/20 08/12/20 08/28/20 History estradiol 30 mcg tablets,3 mos pack(91) temazepam 30 mg capsule 30 mg PO BEDTIME PRN 08/12/20 08/12/20 08/26/20 History 30 mg topiramate 50 mg tablet 50 mg PO BID 08/12/20 08/12/20 08/27/20 History zolpidem 10 mg tablet 10 mg PO BEDTIME PRN 08/12/20 08/12/20 08/26/20 History 10 mg Exam Exam Date and Time: July 08, 2021 0732 Height,Weight and Vital Signs: Height 5 ft 9 in Weight 63.503 kg Last Vital Signs Temp 97.8 F 07/08/21 06:42 Pulse 116 H 07/08/21 06:42 Resp 16 07/08/21 06:42 BP 125/65 07/08/21 06:42 Pulse Ox 99 07/08/21 06:42 Pertinent Lab Results Pertinent Lab Results: Laboratory Tests 07/08/21 06:21 Urine Test NEGATIVE Airway Mallampati Class: II TM Dist: >3cm Neck ROM: Full Heart: RRR Lungs: CTAB Assessment and Plan Assessment Anesthesia Assessment: Anesthesia Plan Discussed and Chart Reviewed Final Anesthetic Review Family History of Problems with Anesthesia: No History of Problems with Anesthesia: No NPO: Yes ASA Class: II Final Preanesthetic Review: No Changes in Pt Med Stat, Meds/Allgs Chart Reviewed, Consent Obtained/Reviewed and Anes Risks/Benef Reviewed Patient Risk: Intermediate Procedure Risk: Low Assessment/Block/Sedation in SS: Assess/Block/Sedation-SS Anesthetic Plan Anesthetic Plan: GA Disposition: Standard PACU
--- NOTE | 2021-07-08 08:36 | PC.NURSE ---
patient remains restless in bed . 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 crying, emotional, laying on left side. multiple complaints. remains confused. repeating questions. no resp distress. alert and awake.
[2021-07-08] MEDS: ondansetron HCL 4 MG/2 ML VIAL IVPUSH (08:50)
--- NOTE | 2021-07-08 08:50 | PC.NURSE ---
after drinking po apple juice patient started to feel nauseous. stopped drinking apple juice and medicated for nausea with zofran.
--- NOTE | 2021-07-08 08:55 | PC.NURSE ---
denies nausea and no longer confused.
[2021-07-08] MEDS: oxyCODONE HCl Immed Release 5 MG TABLET 10 MG PO (09:03)
[2021-07-08] MEDS: Acetaminophen 325 MG TABLET 650 MG PO (09:04)
== END 2021-07-08 09:35 | disposition home or self-care (01) ==
PROVIDERS: PCP Internal Medicine; Visit Provider Psychiatry & Neurology Psychiatry
PROC: (CPT 90870; principal; 2021-07-08 08:00)
DX: F31.60 Bipolar disorder, current episode mixed, unspecified (principal)
CPT/HCPCS: 81025; 90870; J0330; J1885; J2250; J2405

== ENCOUNTER 2021-07-15 06:13 | Day surgery (SDC) | payer OTHER, SELFPAY ==
[2021-07-15] VITALS (7 sets, daily range): BP systolic 107–130; BP diastolic 64–84; PULSE 85–109; RESP 16–19; TEMP 36.7–36.8; O2SAT 98–100; BMI 20.7
[2021-07-15 06:36] LABS: UPreg QC Valid YES; Urine Pregnancy NEGATIVE (NEGATIVE)
--- NOTE | 2021-07-15 07:19 | HO.ANESPROP2 ---
[facility] Active Problems Active Problems: All Active Problems (Updated 07/01/21 @ 15:08 by Parker Flanagan) Bipolar 1 disorder (Acute) History of HPV infection (Acute) Well woman exam with routine gynecological exam (Acute) Past Medical History Medical History Anxiety Bipolar 1 disorder Depression Deviated septum History of electroconvulsive therapy Vasovagal episode Functional capacity: independent ambulation Patient : No Family History Family history of problems with anesthesia: No Surgical History Surgical History History of bunionectomy History of Problems with Anesthesia: No Social History Social History Household Members: None Housing: Apartment Are you a primary child care to a significant other at home: No Do you presently have visiting nurse or other home services: No Patient Tobacco Use Status: Never used Tobacco Second Hand Smoke Exposure: No Are you DNR?: No Advance Directives: No Advance Directives Information Provided: Yes Recently lost weight without trying: No service: No Sexual orientation: Did not discuss. Meds Allergies Allergy/AdvReac Type Severity Reaction Status Date / Time adhesive tape [ADHESIVE TAPE] Allergy Unknown unknown Verified 11/18/20 15:07 bee pollen [BEE STINGS] Allergy Unknown anaphylaxis Verified 11/18/20 15:07 Iodinated Contrast Media Allergy Unknown unknown Verified 11/18/20 15:07 [CONTRAST, IV] metaxalone [From SKELAXIN] Allergy Unknown unknown Verified 11/18/20 15:07 monocryl/vicryl sutures Allergy Unknown unknown Verified 11/18/20 15:07 morphine [MORPHINE] Allergy Unknown unknown Verified 11/18/20 15:07 moxifloxacin [From AVELOX] Allergy Unknown unknown Verified 11/18/20 15:07 orange [ORANGES] Allergy Unknown anaphylaxis Verified 11/18/20 15:07 red dye [RED DYE] Allergy Unknown unknown Verified 11/18/20 15:07 Sulfa (Sulfonamide Allergy Unknown UNKNOWN Verified 11/18/20 15:07 Antibiotics) [SULFA (SULFONAMIDE ANTIBIOTICS)] lamotrigine [From LAMICTAL] AdvReac Intermediate hx of Verified 11/18/20 15:07 yennifer on doses greater that 200 mg Adhesive Bandages Allergy Unknown Hives Uncoded 11/18/20 15:07 bees/wasps Allergy Unknown Anaphylaxis Uncoded 11/18/20 15:07 ivp contrast dye Allergy Unknown Hives Uncoded 11/18/20 15:07 lychees Allergy Unknown Hives Uncoded 11/18/20 15:07 oranges Allergy Unknown Anaphylaxis Uncoded 11/18/20 15:07 red dyes Allergy Unknown Hives Uncoded 11/18/20 15:07 Home Medications Medication Instructions Recorded Confirmed Last Taken Type albuterol 90 mcg/actuation aerosol mcg INHALATION 08/12/20 08/26/20 History inhaler mcg cetirizine 10 mg tablet (Zyrtec) 10 mg PO DAILY 08/12/20 08/12/20 08/28/20 History clonazepam 1 mg tablet 1 mg PO DAILY 08/12/20 08/12/20 08/26/20 History 1 mg clozapine 50 mg tablet (Clozaril) 50 mg PO BID 08/12/20 08/12/20 08/28/20 History dexmethylphenidate 10 mg tablet 10 mg PO BID 08/12/20 08/12/20 08/28/20 History diphenhydramine HCl 50 mg capsule 50 mg PO TID PRN 08/12/20 08/12/20 Unknown History (Banophen) epinephrine 0.1 mg/mL injection 0.1 mg IM Q30M PRN 08/12/20 08/12/20 08/26/20 History syringe 0.1 mg famotidine 40 mg tablet 40 mg PO BEDTIME 08/12/20 08/12/20 08/28/20 History fluticasone 100 mcg-salmeterol 50 1 inh INHALATION BID 08/12/20 08/12/20 08/28/20 History mcg/dose blistr powdr for inhalation (Advair Diskus) fluticasone propionate 50 1 spray INTRANASAL BID 08/12/20 08/12/20 08/28/20 History mcg/actuation nasal spray,suspension ipratropium 0.5 mg-albuterol 3 mg 3 ml INHALATION QID 08/12/20 08/12/20 08/26/20 History (2.5 mg base)/3 mL nebulization 3 mL soln levonorgestrel 0.15 mg-ethinyl 1 tab PO DAILY 08/12/20 08/12/20 08/28/20 History estradiol 30 mcg tablets,3 mos pack(91) temazepam 30 mg capsule 30 mg PO BEDTIME PRN 08/12/20 08/12/20 08/26/20 History 30 mg topiramate 50 mg tablet 50 mg PO BID 08/12/20 08/12/20 08/27/20 History Exam Exam Date and Time: July 15, 2021 0719 Height,Weight and Vital Signs: Height 5 ft 9 in Weight 63.503 kg Last Vital Signs Temp 98.1 F 07/15/21 06:22 Pulse 101 H 07/15/21 06:22 Resp 16 07/15/21 06:22 BP 124/65 07/15/21 06:22 Pulse Ox 100 07/15/21 06:22 Pertinent Lab Results Pertinent Lab Results: Laboratory Tests 07/15/21 06:20 Urine Test NEGATIVE Airway Mallampati Class: II TM Dist: >3cm Neck ROM: Full Heart: RRR Lungs: CTA Assessment and Plan Final Anesthetic Review Family History of Problems with Anesthesia: No History of Problems with Anesthesia: No
--- NOTE | 2021-07-15 07:58 | MHC.SHP ---
Pre-Procedural Eval Section A Date of Service: 07/15/21 The patient is an INPATIENT: No Changes since office visit: No Cold of Flu in the past 2 weeks, No New Medical Problems, No Changes in Medication and No Patient answered all questions The History & Physical has been completed within 30 days and I have reviewed it.: Yes Section B Chief Complaint: depression Allergies: Allergies Allergy/AdvReac Type Severity Reaction Status Date / Time adhesive tape [ADHESIVE TAPE] Allergy Unknown unknown Verified 11/18/20 15:07 bee pollen [BEE STINGS] Allergy Unknown anaphylaxis Verified 11/18/20 15:07 Iodinated Contrast Media Allergy Unknown unknown Verified 11/18/20 15:07 [CONTRAST, IV] metaxalone [From SKELAXIN] Allergy Unknown unknown Verified 11/18/20 15:07 monocryl/vicryl sutures Allergy Unknown unknown Verified 11/18/20 15:07 morphine [MORPHINE] Allergy Unknown unknown Verified 11/18/20 15:07 moxifloxacin [From AVELOX] Allergy Unknown unknown Verified 11/18/20 15:07 orange [ORANGES] Allergy Unknown anaphylaxis Verified 11/18/20 15:07 red dye [RED DYE] Allergy Unknown unknown Verified 11/18/20 15:07 Sulfa (Sulfonamide Allergy Unknown UNKNOWN Verified 11/18/20 15:07 Antibiotics) [SULFA (SULFONAMIDE ANTIBIOTICS)] lamotrigine [From LAMICTAL] AdvReac Intermediate hx of Verified 11/18/20 15:07 yennifer on doses greater that 200 mg Adhesive Bandages Allergy Unknown Hives Uncoded 11/18/20 15:07 bees/wasps Allergy Unknown Anaphylaxis Uncoded 11/18/20 15:07 ivp contrast dye Allergy Unknown Hives Uncoded 11/18/20 15:07 lychees Allergy Unknown Hives Uncoded 11/18/20 15:07 oranges Allergy Unknown Anaphylaxis Uncoded 11/18/20 15:07 red dyes Allergy Unknown Hives Uncoded 11/18/20 15:07 Plan I have reviewed the history and physical and performed a pertinent physical examination on my patient. No changes have occurred unless specified.
--- NOTE | 2021-07-15 07:58 | HO.ECTPROC ---
ECT Procedure Note Diagnosis/Treatment Date of Service: 07/15/21 Interval Clinical Notes: dysphoric but seems less manic. Clozaril on a titration mode slowly ECT Settings Device: THYMATRON DGx Electrode Placement: Right Unilateral Program/Pulse Width: 0.25 Energy Percent: 15 Seizure Duration By EEG (in seconds): 51 By Motor Observation (in seconds): 21 Medications Administration General Anesthetic: Etomidate (16) Muscle Relaxant: Succinylcholine (100) Ancillary Medications Analgesics: Torodol - Pre ECT Anti-emetics: Zofran - Pre ECT Miscillaneous Medications: Propofol (30) Airway Management Airway Management: Bag Mask Ventilation Treatment Recommendations No Changes Recommended: No change Pt Tolerated Procedure w/o Issue: Yes
[2021-07-15] MEDS: oxyCODONE HCl Immed Release 5 MG TABLET 10 MG PO (08:40)
[2021-07-15] MEDS: Acetaminophen 325 MG TABLET 650 MG PO (08:41)
--- NOTE | 2021-07-15 14:37 | HO.POSTANES ---
Post Anesthesia Evaluation Post Anesthesia Evaluation Vital Signs: Vital Signs Temp Pulse Resp BP Pulse Ox 07/15/21 09:00 98.3 F 96 19 126/83 100 07/15/21 08:45 109 H 17 130/84 100 07/15/21 08:30 105 H 18 124/78 98 07/15/21 08:25 105 H 18 121/72 98 07/15/21 08:20 95 18 107/64 99 07/15/21 08:15 98.3 F 85 18 115/72 100 07/15/21 06:22 98.1 F 101 H 16 124/65 100 Anesthesia: General Mental Status: Awake Pain Control: Satisfactory Nausea/Vomiting: None Hydration: Adequate Anesthesia-Related Issues: No Anes. Related Issues
== END 2021-07-15 09:15 | disposition home or self-care (01) ==
PROVIDERS: PCP Internal Medicine; Visit Provider Psychiatry & Neurology Psychiatry
PROC: (CPT 90870; principal; 2021-07-15 07:30)
DX: F32.9 Major depressive disorder, single episode, unspecified (principal)
CPT/HCPCS: 81025; 90870; J0330; J1885; J2405

== ENCOUNTER 2021-07-24 06:08 | Day surgery (SDC) | payer OTHER, SELFPAY ==
[2021-07-24] VITALS (8 sets, daily range): BP systolic 117–131; BP diastolic 67–80; PULSE 101–114; RESP 16–18; TEMP 36.5–36.9; O2SAT 98–100; BMI 20.7
--- NOTE | 2021-07-24 06:49 | HO.ANESPROP2 ---
[facility] Active Problems Active Problems: All Active Problems (Updated 07/01/21 @ 15:08 by Parker Flanagan) Bipolar 1 disorder (Acute) History of HPV infection (Acute) Well woman exam with routine gynecological exam (Acute) Past Medical History Medical History Anxiety Bipolar 1 disorder Depression Deviated septum History of electroconvulsive therapy Vasovagal episode Family History Family history of problems with anesthesia: No Surgical History Surgical History History of bunionectomy History of Problems with Anesthesia: No Social History Social History Household Members: None Housing: Apartment Are you a primary rehab care assistant to a significant other at home: No Do you presently have visiting nurse or other home services: No Patient Tobacco Use Status: Never used Tobacco Second Hand Smoke Exposure: No Advance Directives: No Advance Directives Information Provided: Yes service: No Sexual orientation: Did not discuss. Meds Allergies Allergy/AdvReac Type Severity Reaction Status Date / Time adhesive tape [ADHESIVE TAPE] Allergy Unknown unknown Verified 11/18/20 15:07 bee pollen [BEE STINGS] Allergy Unknown anaphylaxis Verified 11/18/20 15:07 Iodinated Contrast Media Allergy Unknown unknown Verified 11/18/20 15:07 [CONTRAST, IV] metaxalone [From SKELAXIN] Allergy Unknown unknown Verified 11/18/20 15:07 monocryl/vicryl sutures Allergy Unknown unknown Verified 11/18/20 15:07 morphine [MORPHINE] Allergy Unknown unknown Verified 11/18/20 15:07 moxifloxacin [From AVELOX] Allergy Unknown unknown Verified 11/18/20 15:07 orange [ORANGES] Allergy Unknown anaphylaxis Verified 11/18/20 15:07 red dye [RED DYE] Allergy Unknown unknown Verified 11/18/20 15:07 Sulfa (Sulfonamide Allergy Unknown UNKNOWN Verified 11/18/20 15:07 Antibiotics) [SULFA (SULFONAMIDE ANTIBIOTICS)] lamotrigine [From LAMICTAL] AdvReac Intermediate hx of Verified 11/18/20 15:07 yennifer on doses greater that 200 mg Adhesive Bandages Allergy Unknown Hives Uncoded 11/18/20 15:07 bees/wasps Allergy Unknown Anaphylaxis Uncoded 11/18/20 15:07 ivp contrast dye Allergy Unknown Hives Uncoded 11/18/20 15:07 lychees Allergy Unknown Hives Uncoded 11/18/20 15:07 oranges Allergy Unknown Anaphylaxis Uncoded 11/18/20 15:07 red dyes Allergy Unknown Hives Uncoded 11/18/20 15:07 Active Medications: Current Medications Generic Name Dose Route Start Last Admin Trade Name Tonya PRN Reason Stop Dose Admin Lactated Ringer's 1,000 mls @ 50 mls/hr 07/24/21 07:00 Lr IVCONT .Q20H [place] Home Medications Medication Instructions Recorded Confirmed Last Taken Type albuterol 90 mcg/actuation aerosol mcg INHALATION 08/12/20 08/26/20 History inhaler mcg cetirizine 10 mg tablet (Zyrtec) 10 mg PO DAILY 08/12/20 08/12/20 08/28/20 History clonazepam 1 mg tablet 1 mg PO DAILY 08/12/20 08/12/20 08/26/20 History 1 mg clozapine 50 mg tablet (Clozaril) 50 mg PO BID 08/12/20 08/12/20 08/28/20 History dexmethylphenidate 10 mg tablet 10 mg PO BID 08/12/20 08/12/20 08/28/20 History diphenhydramine HCl 50 mg capsule 50 mg PO TID PRN 08/12/20 08/12/20 Unknown History (Banophen) epinephrine 0.1 mg/mL injection 0.1 mg IM Q30M PRN 08/12/20 08/12/20 08/26/20 History syringe 0.1 mg famotidine 40 mg tablet 40 mg PO BEDTIME 08/12/20 08/12/20 08/28/20 History fluticasone 100 mcg-salmeterol 50 1 inh INHALATION BID 08/12/20 08/12/20 08/28/20 History mcg/dose blistr powdr for inhalation (Advair Diskus) fluticasone propionate 50 1 spray INTRANASAL BID 08/12/20 08/12/20 08/28/20 History mcg/actuation nasal spray,suspension ipratropium 0.5 mg-albuterol 3 mg 3 ml INHALATION QID 08/12/20 08/12/20 08/26/20 History (2.5 mg base)/3 mL nebulization 3 mL soln levonorgestrel 0.15 mg-ethinyl 1 tab PO DAILY 08/12/20 08/12/20 08/28/20 History estradiol 30 mcg tablets,3 mos pack(91) temazepam 30 mg capsule 30 mg PO BEDTIME PRN 08/12/20 08/12/20 08/26/20 History 30 mg topiramate 50 mg tablet 50 mg PO BID 08/12/20 08/12/20 08/27/20 History Exam Exam Date and Time: July 24, 2021 0649 Airway Mallampati Class: II TM Dist: >3cm Neck ROM: Full Heart: rrr Lungs: cta Assessment and Plan Assessment Anesthesia Assessment: Anesthesia Plan Discussed and Chart Reviewed Final Anesthetic Review Family History of Problems with Anesthesia: No History of Problems with Anesthesia: No NPO: Yes ASA Class: III Final Preanesthetic Review: No Changes in Pt Med Stat, Meds/Allgs Chart Reviewed and Consent Obtained/Reviewed Patient Risk: Intermediate Procedure Risk: Intermediate Anesthetic Plan Anesthetic Plan: GA Disposition: Standard PACU
--- NOTE | 2021-07-24 07:30 | MHC.SHP ---
Pre-Procedural Eval Section A Date of Service: 07/24/21 The patient is an INPATIENT: No Changes since office visit: Yes Changes in Medication and Yes Patient answered all questions; No Cold of Flu in the past 2 weeks and No New Medical Problems The History & Physical has been completed within 30 days and I have reviewed it.: Yes Section B Chief Complaint: major depression Relevant Social History: None Present Medications: see Short Stay Collaborative assessment Medical History: Significant History (asthma) History of Previous Operations: Relevant previous surgery/procedure and date(s) (hx ect hx trauma) Allergies: Allergies Allergy/AdvReac Type Severity Reaction Status Date / Time adhesive tape [ADHESIVE TAPE] Allergy Unknown unknown Verified 11/18/20 15:07 bee pollen [BEE STINGS] Allergy Unknown anaphylaxis Verified 11/18/20 15:07 Iodinated Contrast Media Allergy Unknown unknown Verified 11/18/20 15:07 [CONTRAST, IV] metaxalone [From SKELAXIN] Allergy Unknown unknown Verified 11/18/20 15:07 monocryl/vicryl sutures Allergy Unknown unknown Verified 11/18/20 15:07 morphine [MORPHINE] Allergy Unknown unknown Verified 11/18/20 15:07 moxifloxacin [From AVELOX] Allergy Unknown unknown Verified 11/18/20 15:07 orange [ORANGES] Allergy Unknown anaphylaxis Verified 11/18/20 15:07 red dye [RED DYE] Allergy Unknown unknown Verified 11/18/20 15:07 Sulfa (Sulfonamide Allergy Unknown UNKNOWN Verified 11/18/20 15:07 Antibiotics) [SULFA (SULFONAMIDE ANTIBIOTICS)] lamotrigine [From LAMICTAL] AdvReac Intermediate hx of Verified 11/18/20 15:07 yennifer on doses greater that 200 mg Adhesive Bandages Allergy Unknown Hives Uncoded 11/18/20 15:07 bees/wasps Allergy Unknown Anaphylaxis Uncoded 11/18/20 15:07 ivp contrast dye Allergy Unknown Hives Uncoded 11/18/20 15:07 lychees Allergy Unknown Hives Uncoded 11/18/20 15:07 oranges Allergy Unknown Anaphylaxis Uncoded 11/18/20 15:07 red dyes Allergy Unknown Hives Uncoded 11/18/20 15:07 Review of Systems Sugical H&P ROS: Negative: Cardiovascular and Respiratory Exam Surgical H&P Exam: Normal: Heart and Normal: Lungs Plan I have reviewed the history and physical and performed a pertinent physical examination on my patient. No changes have occurred unless specified.
--- NOTE | 2021-07-24 07:45 | HO.ECTPROC ---
ECT Procedure Note Diagnosis/Treatment Date of Service: 07/24/21 Diagnosis: Bipolar disorder Treatment: Maintenance Interval Clinical Notes: pt on 300 mg clozapine seems more stable less manic no active si ECT Settings Device: THYMATRON DGx Electrode Placement: Right Unilateral Program/Pulse Width: 0.25 Energy Percent: 15 Seizure Duration By EEG (in seconds): 29 Medications Administration General Anesthetic: Etomidate (16) Muscle Relaxant: Succinylcholine (100) Ancillary Medications Analgesics: Torodol - Pre ECT Anti-emetics: Zofran - Pre ECT Airway Management Airway Management: Bag Mask Ventilation Treatment Recommendations Notes: try and taper ect encourage med compliance f/u 1 week Pt Tolerated Procedure w/o Issue: Yes
[2021-07-24] MEDS: oxyCODONE HCl Immed Release 5 MG TABLET 10 MG PO (08:13)
[2021-07-24] MEDS: Acetaminophen 325 MG TABLET 650 MG PO (08:13)
== END 2021-07-24 09:06 | disposition home or self-care (01) ==
PROVIDERS: PCP Internal Medicine; Visit Provider Psychiatry & Neurology Psychiatry
PROC: (CPT 90870; principal; 2021-07-24 08:00)
DX: F31.9 Bipolar disorder, unspecified (principal)
CPT/HCPCS: 90870; J0330; J1885; J2405; J2550

== ENCOUNTER 2021-07-31 07:57 | Day surgery (SDC) | payer OTHER, SELFPAY ==
[2021-07-31] VITALS (7 sets, daily range): BP systolic 112–133; BP diastolic 64–85; PULSE 98–120; RESP 14–18; TEMP 36.2–36.8; O2SAT 99–100; BMI 20.7
--- NOTE | 2021-07-31 08:14 | HO.ANESPROP2 ---
[facility] Active Problems Active Problems: All Active Problems (Updated 07/01/21 @ 15:08 by Parker Flanagan) Bipolar 1 disorder (Acute) History of HPV infection (Acute) Well woman exam with routine gynecological exam (Acute) Past Medical History Medical History Anxiety Bipolar 1 disorder Depression Deviated septum History of electroconvulsive therapy Vasovagal episode Family History Family history of problems with anesthesia: No Surgical History Surgical History History of bunionectomy History of Problems with Anesthesia: No Social History Social History Household Members: None Housing: Apartment Are you a primary auto care center manager to a significant other at home: No Do you presently have visiting nurse or other home services: No Patient Tobacco Use Status: Never used Tobacco Second Hand Smoke Exposure: No Advance Directives: No Advance Directives Information Provided: Yes service: No Sexual orientation: Did not discuss. Meds Allergies Allergy/AdvReac Type Severity Reaction Status Date / Time adhesive tape [ADHESIVE TAPE] Allergy Unknown unknown Verified 11/18/20 15:07 bee pollen [BEE STINGS] Allergy Unknown anaphylaxis Verified 11/18/20 15:07 Iodinated Contrast Media Allergy Unknown unknown Verified 11/18/20 15:07 [CONTRAST, IV] metaxalone [From SKELAXIN] Allergy Unknown unknown Verified 11/18/20 15:07 monocryl/vicryl sutures Allergy Unknown unknown Verified 11/18/20 15:07 morphine [MORPHINE] Allergy Unknown unknown Verified 11/18/20 15:07 moxifloxacin [From AVELOX] Allergy Unknown unknown Verified 11/18/20 15:07 orange [ORANGES] Allergy Unknown anaphylaxis Verified 11/18/20 15:07 red dye [RED DYE] Allergy Unknown unknown Verified 11/18/20 15:07 Sulfa (Sulfonamide Allergy Unknown UNKNOWN Verified 11/18/20 15:07 Antibiotics) [SULFA (SULFONAMIDE ANTIBIOTICS)] lamotrigine [From LAMICTAL] AdvReac Intermediate hx of Verified 11/18/20 15:07 yennifer on doses greater that 200 mg Adhesive Bandages Allergy Unknown Hives Uncoded 11/18/20 15:07 bees/wasps Allergy Unknown Anaphylaxis Uncoded 11/18/20 15:07 ivp contrast dye Allergy Unknown Hives Uncoded 11/18/20 15:07 lychees Allergy Unknown Hives Uncoded 11/18/20 15:07 oranges Allergy Unknown Anaphylaxis Uncoded 11/18/20 15:07 red dyes Allergy Unknown Hives Uncoded 11/18/20 15:07 Active Medications: Current Medications Generic Name Dose Route Start Last Admin Trade Name Tonya PRN Reason Stop Dose Admin Lactated Ringer's 1,000 mls @ 50 mls/hr 07/31/21 08:15 Lr IVCONT .Q20H [place] Home Medications Medication Instructions Recorded Confirmed Last Taken Type albuterol 90 mcg/actuation aerosol mcg INHALATION 08/12/20 08/26/20 History inhaler mcg cetirizine 10 mg tablet (Zyrtec) 10 mg PO DAILY 08/12/20 08/12/20 08/28/20 History clonazepam 1 mg tablet 1 mg PO DAILY 08/12/20 08/12/20 08/26/20 History 1 mg clozapine 50 mg tablet (Clozaril) 50 mg PO BID 08/12/20 08/12/20 08/28/20 History dexmethylphenidate 10 mg tablet 10 mg PO BID 08/12/20 08/12/20 08/28/20 History diphenhydramine HCl 50 mg capsule 50 mg PO TID PRN 08/12/20 08/12/20 Unknown History (Banophen) epinephrine 0.1 mg/mL injection 0.1 mg IM Q30M PRN 08/12/20 08/12/20 08/26/20 History syringe 0.1 mg famotidine 40 mg tablet 40 mg PO BEDTIME 08/12/20 08/12/20 08/28/20 History fluticasone 100 mcg-salmeterol 50 1 inh INHALATION BID 08/12/20 08/12/20 08/28/20 History mcg/dose blistr powdr for inhalation (Advair Diskus) fluticasone propionate 50 1 spray INTRANASAL BID 08/12/20 08/12/20 08/28/20 History mcg/actuation nasal spray,suspension ipratropium 0.5 mg-albuterol 3 mg 3 ml INHALATION QID 08/12/20 08/12/20 08/26/20 History (2.5 mg base)/3 mL nebulization 3 mL soln levonorgestrel 0.15 mg-ethinyl 1 tab PO DAILY 08/12/20 08/12/20 08/28/20 History estradiol 30 mcg tablets,3 mos pack(91) temazepam 30 mg capsule 30 mg PO BEDTIME PRN 08/12/20 08/12/20 08/26/20 History 30 mg topiramate 50 mg tablet 50 mg PO BID 08/12/20 08/12/20 08/27/20 History Exam Exam Date and Time: July 31, 2021 0814 Height,Weight and Vital Signs: Height 5 ft 9 in Weight 63.63 kg Airway Mallampati Class: II TM Dist: >3cm Neck ROM: Full Heart: rrr Lungs: cta Assessment and Plan Assessment Anesthesia Assessment: Anesthesia Plan Discussed and Chart Reviewed Final Anesthetic Review Family History of Problems with Anesthesia: No History of Problems with Anesthesia: No NPO: Yes ASA Class: III Final Preanesthetic Review: No Changes in Pt Med Stat, Meds/Allgs Chart Reviewed and Consent Obtained/Reviewed Patient Risk: Intermediate Procedure Risk: Intermediate Anesthetic Plan Anesthetic Plan: GA Disposition: Standard PACU
[2021-07-31 08:34] LABS: UPreg QC Valid YES; Urine Pregnancy NEGATIVE (NEGATIVE)
[2021-07-31] MEDS: Lactated Ringers 1,000 ML 50 ML IVCONT (08:35)
--- NOTE | 2021-07-31 09:09 | MHC.SHP ---
Pre-Procedural Eval Section A Date of Service: 07/31/21 The patient is an INPATIENT: No Changes since office visit: Yes New Medical Problems, Yes Changes in Medication and Yes Patient answered all questions; No Cold of Flu in the past 2 weeks The History & Physical has been completed within 30 days and I have reviewed it.: Yes Section B Chief Complaint: Severe Depression Allergies: Allergies Allergy/AdvReac Type Severity Reaction Status Date / Time adhesive tape [ADHESIVE TAPE] Allergy Unknown unknown Verified 11/18/20 15:07 bee pollen [BEE STINGS] Allergy Unknown anaphylaxis Verified 11/18/20 15:07 Iodinated Contrast Media Allergy Unknown unknown Verified 11/18/20 15:07 [CONTRAST, IV] metaxalone [From SKELAXIN] Allergy Unknown unknown Verified 11/18/20 15:07 monocryl/vicryl sutures Allergy Unknown unknown Verified 11/18/20 15:07 morphine [MORPHINE] Allergy Unknown unknown Verified 11/18/20 15:07 moxifloxacin [From AVELOX] Allergy Unknown unknown Verified 11/18/20 15:07 orange [ORANGES] Allergy Unknown anaphylaxis Verified 11/18/20 15:07 red dye [RED DYE] Allergy Unknown unknown Verified 11/18/20 15:07 Sulfa (Sulfonamide Allergy Unknown UNKNOWN Verified 11/18/20 15:07 Antibiotics) [SULFA (SULFONAMIDE ANTIBIOTICS)] lamotrigine [From LAMICTAL] AdvReac Intermediate hx of Verified 11/18/20 15:07 yennifer on doses greater that 200 mg Adhesive Bandages Allergy Unknown Hives Uncoded 11/18/20 15:07 bees/wasps Allergy Unknown Anaphylaxis Uncoded 11/18/20 15:07 ivp contrast dye Allergy Unknown Hives Uncoded 11/18/20 15:07 lychees Allergy Unknown Hives Uncoded 11/18/20 15:07 oranges Allergy Unknown Anaphylaxis Uncoded 11/18/20 15:07 red dyes Allergy Unknown Hives Uncoded 11/18/20 15:07 Plan I have reviewed the history and physical and performed a pertinent physical examination on my patient. No changes have occurred unless specified.
--- NOTE | 2021-07-31 09:10 | HO.ECTPROC ---
ECT Procedure Note Diagnosis/Treatment Date of Service: 07/31/21 Diagnosis: Bipolar disorder Previous ECT Date: 07/24/21 Treatment: Maintenance Interval Clinical Notes: pt on clozapine more stable also on lamictal held day prior ECT Settings Device: THYMATRON DGx Electrode Placement: Right Unilateral Program/Pulse Width: 0.25 Energy Percent: 20 Seizure Duration By EEG (in seconds): 60 Medications Administration General Anesthetic: Etomidate (16) Muscle Relaxant: Succinylcholine (100) Ancillary Medications Analgesics: Torodol - Pre ECT Anti-emetics: Zofran - Pre ECT Miscillaneous Medications: Propofol (40) Airway Management Airway Management: Bag Mask Ventilation Treatment Recommendations No Changes Recommended: No change Notes: f/u tx 2 weeks Pt Tolerated Procedure w/o Issue: Yes
[2021-07-31] MEDS: Acetaminophen 325 MG TABLET 650 MG PO (09:38)
[2021-07-31] MEDS: oxyCODONE HCl Immed Release 5 MG TABLET 10 MG PO (09:39)
== END 2021-07-31 10:35 | disposition home or self-care (01) ==
PROVIDERS: Anesthesiology; PCP Internal Medicine; Visit Provider Psychiatry & Neurology Psychiatry
PROC: (CPT 90870; principal; 2021-07-31 09:00)
DX: F31.9 Bipolar disorder, unspecified (principal); Z91.040 Latex allergy status; Z91.041 Radiographic dye allergy status; Z88.1 Allergy status to other antibiotic agents; Z88.2 Allergy status to sulfonamides
CPT/HCPCS: 81025; 90870; J0330; J1885; J2405

== ENCOUNTER 2021-08-17 06:02 | Day surgery (SDC) | payer OTHER, SELFPAY ==
[2021-08-17] VITALS (7 sets, daily range): BP systolic 107–139; BP diastolic 60–85; PULSE 74–114; RESP 16–18; TEMP 36.5–36.9; O2SAT 94–100; BMI 21.2
[2021-08-17 06:37] LABS: UPreg QC Valid YES; Urine Pregnancy NEGATIVE (NEGATIVE)
--- NOTE | 2021-08-17 07:01 | MHC.SHP ---
Pre-Procedural Eval Section A Date of Service: 08/17/21 The patient is an INPATIENT: No Changes since office visit: No Cold of Flu in the past 2 weeks, No New Medical Problems, No Changes in Medication and No Patient answered all questions The History & Physical has been completed within 30 days and I have reviewed it.: Yes Section B Chief Complaint: depression Allergies: Allergies Allergy/AdvReac Type Severity Reaction Status Date / Time adhesive tape [ADHESIVE TAPE] Allergy Unknown unknown Verified 11/18/20 15:07 bee pollen [BEE STINGS] Allergy Unknown anaphylaxis Verified 11/18/20 15:07 Iodinated Contrast Media Allergy Unknown unknown Verified 11/18/20 15:07 [CONTRAST, IV] metaxalone [From SKELAXIN] Allergy Unknown unknown Verified 11/18/20 15:07 monocryl/vicryl sutures Allergy Unknown unknown Verified 11/18/20 15:07 morphine [MORPHINE] Allergy Unknown unknown Verified 11/18/20 15:07 moxifloxacin [From AVELOX] Allergy Unknown unknown Verified 11/18/20 15:07 orange [ORANGES] Allergy Unknown anaphylaxis Verified 11/18/20 15:07 red dye [RED DYE] Allergy Unknown unknown Verified 11/18/20 15:07 Sulfa (Sulfonamide Allergy Unknown UNKNOWN Verified 11/18/20 15:07 Antibiotics) [SULFA (SULFONAMIDE ANTIBIOTICS)] lamotrigine [From LAMICTAL] AdvReac Intermediate hx of Verified 11/18/20 15:07 yennifer on doses greater that 200 mg Adhesive Bandages Allergy Unknown Hives Uncoded 11/18/20 15:07 bees/wasps Allergy Unknown Anaphylaxis Uncoded 11/18/20 15:07 ivp contrast dye Allergy Unknown Hives Uncoded 11/18/20 15:07 lychees Allergy Unknown Hives Uncoded 11/18/20 15:07 oranges Allergy Unknown Anaphylaxis Uncoded 11/18/20 15:07 red dyes Allergy Unknown Hives Uncoded 11/18/20 15:07 Plan I have reviewed the history and physical and performed a pertinent physical examination on my patient. No changes have occurred unless specified.
--- NOTE | 2021-08-17 07:01 | HO.ECTPROC ---
ECT Procedure Note Diagnosis/Treatment Date of Service: 08/17/21 Treatment: Maintenance Interval Clinical Notes: The patient reported that Clozaril was going to be tapered off slowly. She did well on school, she passes all her courses but she is going to take off this fall. Mood remains stable, chronically dysphoric but safe. ECT Settings Device: THYMATRON DGx Electrode Placement: Right Unilateral Program/Pulse Width: 0.25 Energy Percent: 20 Medications Administration General Anesthetic: Etomidate (16) Muscle Relaxant: Succinylcholine (100) Ancillary Medications Analgesics: Torodol - Pre ECT Anti-emetics: Zofran - Pre ECT Miscillaneous Medications: Propofol (40 mg) Airway Management Airway Management: Bag Mask Ventilation Treatment Recommendations No Changes Recommended: No change Pt Tolerated Procedure w/o Issue: Yes
--- NOTE | 2021-08-17 07:04 | HO.ANESPROP2 ---
[facility] Active Problems Active Problems: All Active Problems (Updated 07/01/21 @ 15:08 by Parker Flanagan) Bipolar 1 disorder (Acute) History of HPV infection (Acute) Well woman exam with routine gynecological exam (Acute) Past Medical History Medical History Anxiety Bipolar 1 disorder Depression Deviated septum History of electroconvulsive therapy Vasovagal episode Family History Family history of problems with anesthesia: No Surgical History Surgical History History of bunionectomy History of Problems with Anesthesia: No Social History Social History Household Members: None Housing: Apartment Are you a primary customer care associate to a significant other at home: No Do you presently have visiting nurse or other home services: No Patient Tobacco Use Status: Never used Tobacco Second Hand Smoke Exposure: No Are you DNR?: No Advance Directives: No Advance Directives Information Provided: Yes Recently lost weight without trying: No Nutrition Risks: No Nutritional Risk Patient : No service: No Sexual orientation: Did not discuss. Meds Allergies Allergy/AdvReac Type Severity Reaction Status Date / Time adhesive tape [ADHESIVE TAPE] Allergy Unknown unknown Verified 11/18/20 15:07 bee pollen [BEE STINGS] Allergy Unknown anaphylaxis Verified 11/18/20 15:07 Iodinated Contrast Media Allergy Unknown unknown Verified 11/18/20 15:07 [CONTRAST, IV] metaxalone [From SKELAXIN] Allergy Unknown unknown Verified 11/18/20 15:07 monocryl/vicryl sutures Allergy Unknown unknown Verified 11/18/20 15:07 morphine [MORPHINE] Allergy Unknown unknown Verified 11/18/20 15:07 moxifloxacin [From AVELOX] Allergy Unknown unknown Verified 11/18/20 15:07 orange [ORANGES] Allergy Unknown anaphylaxis Verified 11/18/20 15:07 red dye [RED DYE] Allergy Unknown unknown Verified 11/18/20 15:07 Sulfa (Sulfonamide Allergy Unknown UNKNOWN Verified 11/18/20 15:07 Antibiotics) [SULFA (SULFONAMIDE ANTIBIOTICS)] lamotrigine [From LAMICTAL] AdvReac Intermediate hx of Verified 11/18/20 15:07 yennifer on doses greater that 200 mg Adhesive Bandages Allergy Unknown Hives Uncoded 11/18/20 15:07 bees/wasps Allergy Unknown Anaphylaxis Uncoded 11/18/20 15:07 ivp contrast dye Allergy Unknown Hives Uncoded 11/18/20 15:07 lychees Allergy Unknown Hives Uncoded 11/18/20 15:07 oranges Allergy Unknown Anaphylaxis Uncoded 11/18/20 15:07 red dyes Allergy Unknown Hives Uncoded 11/18/20 15:07 Active Medications: Current Medications Acetaminophen (Acetaminophen 325 Mg Tablet) 650 mg PO ONCE PRN PRN Reason: Pain, Mild (Pain Scale 1-3) Lactated Ringer's (Lr) 1,000 mls @ 50 mls/hr IVCONT .Q20H [place] Oxycodone HCl (Oxycodone Hcl Immed Release 5 Mg Tablet) 10 mg PO ONCE PRN PRN Reason: Pain, Severe (Pain Scale 7-10) Home Medications Medication Instructions Recorded Confirmed Last Taken Type albuterol 90 mcg/actuation aerosol mcg INHALATION 08/12/20 08/26/20 History inhaler mcg cetirizine 10 mg tablet (Zyrtec) 10 mg PO DAILY 08/12/20 08/12/20 08/28/20 History clonazepam 1 mg tablet 1 mg PO DAILY 08/12/20 08/12/20 08/26/20 History 1 mg clozapine 50 mg tablet (Clozaril) 50 mg PO BID 08/12/20 08/12/20 08/28/20 History dexmethylphenidate 10 mg tablet 10 mg PO BID 08/12/20 08/12/20 08/28/20 History diphenhydramine HCl 50 mg capsule 50 mg PO TID PRN 08/12/20 08/12/20 Unknown History (Banophen) epinephrine 0.1 mg/mL injection 0.1 mg IM Q30M PRN 08/12/20 08/12/20 08/26/20 History syringe 0.1 mg famotidine 40 mg tablet 40 mg PO BEDTIME 08/12/20 08/12/20 08/28/20 History fluticasone 100 mcg-salmeterol 50 1 inh INHALATION BID 08/12/20 08/12/20 08/28/20 History mcg/dose blistr powdr for inhalation (Advair Diskus) fluticasone propionate 50 1 spray INTRANASAL BID 08/12/20 08/12/20 08/28/20 History mcg/actuation nasal spray,suspension ipratropium 0.5 mg-albuterol 3 mg 3 ml INHALATION QID 08/12/20 08/12/20 08/26/20 History (2.5 mg base)/3 mL nebulization 3 mL soln levonorgestrel 0.15 mg-ethinyl 1 tab PO DAILY 08/12/20 08/12/20 08/28/20 History estradiol 30 mcg tablets,3 mos pack(91) temazepam 30 mg capsule 30 mg PO BEDTIME PRN 08/12/20 08/12/20 08/26/20 History 30 mg topiramate 50 mg tablet 50 mg PO BID 08/12/20 08/12/20 08/27/20 History Exam Exam Date and Time: August 17, 2021 0704 Height,Weight and Vital Signs: Height 5 ft 8 in Weight 63.503 kg Last Vital Signs Temp 97.7 F 08/17/21 06:10 Pulse 114 H 08/17/21 06:10 Resp 17 08/17/21 06:10 BP 127/78 08/17/21 06:10 Pulse Ox 97 08/17/21 06:10 Pertinent Lab Results Pertinent Lab Results: Laboratory Tests 08/17/21 06:10 Urine Test NEGATIVE Airway Mallampati Class: II TM Dist: >3cm Neck ROM: Full Heart: rrr Lungs: cta Assessment and Plan Assessment Anesthesia Assessment: Anesthesia Plan Discussed and Chart Reviewed Final Anesthetic Review Family History of Problems with Anesthesia: No History of Problems with Anesthesia: No NPO: Yes ASA Class: III Final Preanesthetic Review: No Changes in Pt Med Stat, Meds/Allgs Chart Reviewed and Consent Obtained/Reviewed Patient Risk: Intermediate Procedure Risk: Intermediate Anesthetic Plan Anesthetic Plan: GA Disposition: Standard PACU
[2021-08-17] MEDS: oxyCODONE HCl Immed Release 5 MG TABLET 10 MG PO (07:50)
[2021-08-17] MEDS: Acetaminophen 325 MG TABLET 650 MG PO (07:51)
== END 2021-08-17 08:31 | disposition home or self-care (01) ==
PROVIDERS: PCP Internal Medicine; Visit Provider Psychiatry & Neurology Psychiatry
PROC: (CPT 90870; principal; 2021-08-17 07:30)
DX: F34.1 Dysthymic disorder (principal); F31.9 Bipolar disorder, unspecified; F41.9 Anxiety disorder, unspecified; Z88.2 Allergy status to sulfonamides; Z88.8 Allergy status to other drugs, medicaments and biological substances; Z91.040 Latex allergy status; Z91.041 Radiographic dye allergy status; Z79.899 Other long term (current) drug therapy
CPT/HCPCS: 81025; 90870; J0330; J1885; J2405

== ENCOUNTER 2021-08-28 08:02 | Day surgery (SDC) | payer OTHER, SELFPAY ==
[2021-08-28] VITALS (7 sets, daily range): BP systolic 99–119; BP diastolic 58–74; PULSE 80–109; RESP 16–19; TEMP 36.6–36.8; O2SAT 96–100; BMI 21.2
--- NOTE | 2021-08-28 08:27 | HO.ANESPROP2 ---
[facility] Active Problems Active Problems: All Active Problems (Updated 07/01/21 @ 15:08 by Parker Flanagan) Bipolar 1 disorder (Acute) History of HPV infection (Acute) Well woman exam with routine gynecological exam (Acute) Past Medical History Medical History Anxiety Bipolar 1 disorder Depression Deviated septum History of electroconvulsive therapy Vasovagal episode Family History Family history of problems with anesthesia: No Surgical History Surgical History History of bunionectomy History of Problems with Anesthesia: No Social History Social History Household Members: None Housing: Apartment Are you a primary patient care director to a significant other at home: No Do you presently have visiting nurse or other home services: No Patient Tobacco Use Status: Never used Tobacco Second Hand Smoke Exposure: No Advance Directives: No Advance Directives Information Provided: Yes service: No Sexual orientation: Did not discuss. Meds Allergies Allergy/AdvReac Type Severity Reaction Status Date / Time adhesive tape [ADHESIVE TAPE] Allergy Unknown unknown Verified 11/18/20 15:07 bee pollen [BEE STINGS] Allergy Unknown anaphylaxis Verified 11/18/20 15:07 Iodinated Contrast Media Allergy Unknown unknown Verified 11/18/20 15:07 [CONTRAST, IV] metaxalone [From SKELAXIN] Allergy Unknown unknown Verified 11/18/20 15:07 monocryl/vicryl sutures Allergy Unknown unknown Verified 11/18/20 15:07 morphine [MORPHINE] Allergy Unknown unknown Verified 11/18/20 15:07 moxifloxacin [From AVELOX] Allergy Unknown unknown Verified 11/18/20 15:07 orange [ORANGES] Allergy Unknown anaphylaxis Verified 11/18/20 15:07 red dye [RED DYE] Allergy Unknown unknown Verified 11/18/20 15:07 Sulfa (Sulfonamide Allergy Unknown UNKNOWN Verified 11/18/20 15:07 Antibiotics) [SULFA (SULFONAMIDE ANTIBIOTICS)] lamotrigine [From LAMICTAL] AdvReac Intermediate hx of Verified 11/18/20 15:07 yennifer on doses greater that 200 mg Adhesive Bandages Allergy Unknown Hives Uncoded 11/18/20 15:07 bees/wasps Allergy Unknown Anaphylaxis Uncoded 11/18/20 15:07 ivp contrast dye Allergy Unknown Hives Uncoded 11/18/20 15:07 lychees Allergy Unknown Hives Uncoded 11/18/20 15:07 oranges Allergy Unknown Anaphylaxis Uncoded 11/18/20 15:07 red dyes Allergy Unknown Hives Uncoded 11/18/20 15:07 Active Medications: Current Medications Lactated Ringer's (Lr) 1,000 mls @ 50 mls/hr IVCONT .Q20H [place]O Home Medications Medication Instructions Recorded Confirmed Last Taken Type albuterol 90 mcg/actuation aerosol mcg INHALATION 08/12/20 08/26/20 History inhaler mcg cetirizine 10 mg tablet (Zyrtec) 10 mg PO DAILY 08/12/20 08/12/20 08/28/20 History clonazepam 1 mg tablet 1 mg PO DAILY 08/12/20 08/12/20 08/26/20 History 1 mg clozapine 50 mg tablet (Clozaril) 50 mg PO BID 08/12/20 08/12/20 08/28/20 History dexmethylphenidate 10 mg tablet 10 mg PO BID 08/12/20 08/12/20 08/28/20 History diphenhydramine HCl 50 mg capsule 50 mg PO TID PRN 08/12/20 08/12/20 Unknown History (Banophen) epinephrine 0.1 mg/mL injection 0.1 mg IM Q30M PRN 08/12/20 08/12/20 08/26/20 History syringe 0.1 mg famotidine 40 mg tablet 40 mg PO BEDTIME 08/12/20 08/12/20 08/28/20 History fluticasone 100 mcg-salmeterol 50 1 inh INHALATION BID 08/12/20 08/12/20 08/28/20 History mcg/dose blistr powdr for inhalation (Advair Diskus) fluticasone propionate 50 1 spray INTRANASAL BID 08/12/20 08/12/20 08/28/20 History mcg/actuation nasal spray,suspension ipratropium 0.5 mg-albuterol 3 mg 3 ml INHALATION QID 08/12/20 08/12/20 08/26/20 History (2.5 mg base)/3 mL nebulization 3 mL soln levonorgestrel 0.15 mg-ethinyl 1 tab PO DAILY 08/12/20 08/12/20 08/28/20 History estradiol 30 mcg tablets,3 mos pack(91) temazepam 30 mg capsule 30 mg PO BEDTIME PRN 08/12/20 08/12/20 08/26/20 History 30 mg topiramate 50 mg tablet 50 mg PO BID 08/12/20 08/12/20 08/27/20 History Exam Exam Date and Time: August 28, 202127 Height,Weight and Vital Signs: Height 5 ft 8 in Weight 63.503 kg Last Vital Signs Temp 97.8 F 08/28/21 08:14 Pulse 100 08/28/21 08:14 Resp 18 08/28/21 08:14 BP 119/69 08/28/21 08:14 Pulse Ox 100 08/28/21 08:14 Airway Mallampati Class: II TM Dist: >3cm Neck ROM: Full Heart: rrr Lungs: cta Assessment and Plan Assessment Anesthesia Assessment: Anesthesia Plan Discussed and Chart Reviewed Final Anesthetic Review Family History of Problems with Anesthesia: No History of Problems with Anesthesia: No NPO: Yes ASA Class: III Final Preanesthetic Review: No Changes in Pt Med Stat, Meds/Allgs Chart Reviewed and Consent Obtained/Reviewed Patient Risk: Intermediate Procedure Risk: Intermediate Anesthetic Plan Anesthetic Plan: GA Disposition: Standard PACU
--- NOTE | 2021-08-28 09:03 | MHC.SHP ---
Pre-Procedural Eval Section A Date of Service: 08/28/21 The patient is an INPATIENT: No Changes since office visit: Yes Changes in Medication and Yes Patient answered all questions; No Cold of Flu in the past 2 weeks and No New Medical Problems The History & Physical has been completed within 30 days and I have reviewed it.: Yes Section B Chief Complaint: depressive order Allergies: Allergies Allergy/AdvReac Type Severity Reaction Status Date / Time adhesive tape [ADHESIVE TAPE] Allergy Unknown unknown Verified 11/18/20 15:07 bee pollen [BEE STINGS] Allergy Unknown anaphylaxis Verified 11/18/20 15:07 Iodinated Contrast Media Allergy Unknown unknown Verified 11/18/20 15:07 [CONTRAST, IV] metaxalone [From SKELAXIN] Allergy Unknown unknown Verified 11/18/20 15:07 monocryl/vicryl sutures Allergy Unknown unknown Verified 11/18/20 15:07 morphine [MORPHINE] Allergy Unknown unknown Verified 11/18/20 15:07 moxifloxacin [From AVELOX] Allergy Unknown unknown Verified 11/18/20 15:07 orange [ORANGES] Allergy Unknown anaphylaxis Verified 11/18/20 15:07 red dye [RED DYE] Allergy Unknown unknown Verified 11/18/20 15:07 Sulfa (Sulfonamide Allergy Unknown UNKNOWN Verified 11/18/20 15:07 Antibiotics) [SULFA (SULFONAMIDE ANTIBIOTICS)] lamotrigine [From LAMICTAL] AdvReac Intermediate hx of Verified 11/18/20 15:07 yennifer on doses greater that 200 mg Adhesive Bandages Allergy Unknown Hives Uncoded 11/18/20 15:07 bees/wasps Allergy Unknown Anaphylaxis Uncoded 11/18/20 15:07 ivp contrast dye Allergy Unknown Hives Uncoded 11/18/20 15:07 lychees Allergy Unknown Hives Uncoded 11/18/20 15:07 oranges Allergy Unknown Anaphylaxis Uncoded 11/18/20 15:07 red dyes Allergy Unknown Hives Uncoded 11/18/20 15:07 Plan I have reviewed the history and physical and performed a pertinent physical examination on my patient. No changes have occurred unless specified.
--- NOTE | 2021-08-28 09:42 | HO.ECTPROC ---
ECT Procedure Note Diagnosis/Treatment Date of Service: 08/28/21 Diagnosis: Bipolar disorder Previous ECT Date: 08/17/21 Treatment: Maintenance Interval Clinical Notes: pt less labile more stable ECT Settings Device: THYMATRON DGx Electrode Placement: Right Unilateral Program/Pulse Width: 0.25 Energy Percent: 20 Seizure Duration By EEG (in seconds): 58 Medications Administration General Anesthetic: Etomidate (16) Muscle Relaxant: Succinylcholine (100) Ancillary Medications Analgesics: Torodol - Pre ECT Anti-emetics: Zofran - Pre ECT Miscillaneous Medications: Propofol and Midazolam Airway Management Airway Management: Bag Mask Ventilation Treatment Recommendations No Changes Recommended: No change Notes: f/u tx 2 weeks Pt Tolerated Procedure w/o Issue: Yes
[2021-08-28] MEDS: Acetaminophen 325 MG TABLET 650 MG PO (09:49)
[2021-08-28] MEDS: Lactated Ringers 1,000 ML 50 ML IVCONT (09:49)
[2021-08-28] MEDS: oxyCODONE HCl Immed Release 5 MG TABLET 10 MG PO (09:49)
== END 2021-08-28 11:00 | disposition home or self-care (01) ==
PROVIDERS: PCP Internal Medicine; Visit Provider Psychiatry & Neurology Psychiatry
PROC: (CPT 90870; principal; 2021-08-28 09:00)
DX: F31.9 Bipolar disorder, unspecified (principal); F41.1 Generalized anxiety disorder; J45.909 Unspecified asthma, uncomplicated; Z88.8 Allergy status to other drugs, medicaments and biological substances; Z88.2 Allergy status to sulfonamides; Z91.040 Latex allergy status; Z91.041 Radiographic dye allergy status; Z79.51 Long term (current) use of inhaled steroids
CPT/HCPCS: 90870; J0330; J1885; J2250; J2405

== ENCOUNTER 2021-09-09 06:11 | Day surgery (SDC) | payer OTHER, SELFPAY ==
[2021-09-09] VITALS (8 sets, daily range): BP systolic 104–137; BP diastolic 61–83; PULSE 74–103; RESP 16–17; TEMP 36.3–36.7; O2SAT 96–99; BMI 21.2
--- NOTE | 2021-09-09 06:47 | HO.ANESPROP2 ---
[facility] Active Problems Active Problems: All Active Problems (Updated 07/01/21 @ 15:08 by Parker Flanagan) Bipolar 1 disorder (Acute) History of HPV infection (Acute) Well woman exam with routine gynecological exam (Acute) Past Medical History Medical History Anxiety Bipolar 1 disorder Depression Deviated septum History of electroconvulsive therapy Vasovagal episode Family History Family history of problems with anesthesia: No Surgical History Surgical History History of bunionectomy History of Problems with Anesthesia: No Social History Social History Household Members: None Housing: Apartment Are you a primary palliative care nurse practitioner to a significant other at home: No Do you presently have visiting nurse or other home services: No Patient Tobacco Use Status: Never used Tobacco Second Hand Smoke Exposure: No Use of substances other than those prescribed or required for medical reasons: No Are you DNR?: No Advance Directives: No Advance Directives Information Provided: Yes service: No Sexual orientation: Did not discuss. Meds Allergies Allergy/AdvReac Type Severity Reaction Status Date / Time adhesive tape [ADHESIVE TAPE] Allergy Unknown unknown Verified 09/09/21 06:26 bee pollen [BEE STINGS] Allergy Unknown anaphylaxis Verified 09/09/21 06:26 Iodinated Contrast Media Allergy Unknown unknown Verified 09/09/21 06:26 [CONTRAST, IV] metaxalone [From SKELAXIN] Allergy Unknown unknown Verified 09/09/21 06:26 monocryl/vicryl sutures Allergy Unknown unknown Verified 09/09/21 06:26 morphine [MORPHINE] Allergy Unknown unknown Verified 09/09/21 06:26 moxifloxacin [From AVELOX] Allergy Unknown unknown Verified 09/09/21 06:26 orange [ORANGES] Allergy Unknown anaphylaxis Verified 09/09/21 06:26 red dye [RED DYE] Allergy Unknown unknown Verified 09/09/21 06:26 Sulfa (Sulfonamide Allergy Unknown UNKNOWN Verified 09/09/21 06:26 Antibiotics) [SULFA (SULFONAMIDE ANTIBIOTICS)] lamotrigine [From LAMICTAL] AdvReac Intermediate hx of Verified 11/18/20 15:07 yennifer on doses greater that 200 mg Adhesive Bandages Allergy Unknown Hives Uncoded 11/18/20 15:07 bees/wasps Allergy Unknown Anaphylaxis Uncoded 11/18/20 15:07 ivp contrast dye Allergy Unknown Hives Uncoded 11/18/20 15:07 lychees Allergy Unknown Hives Uncoded 11/18/20 15:07 oranges Allergy Unknown Anaphylaxis Uncoded 11/18/20 15:07 red dyes Allergy Unknown Hives Uncoded 11/18/20 15:07 Active Medications: Current Medications Lactated Ringer's (Lr) 1,000 mls @ 50 mls/hr IVCONT .Q20H [place] Home Medications Medication Instructions Recorded Confirmed Last Taken Type albuterol 90 mcg/actuation aerosol mcg INHALATION 08/12/20 08/26/20 History inhaler mcg cetirizine 10 mg tablet (Zyrtec) 10 mg PO DAILY 08/12/20 08/12/20 08/28/20 History clonazepam 1 mg tablet 1 mg PO DAILY 08/12/20 08/12/20 08/26/20 History 1 mg clozapine 50 mg tablet (Clozaril) 50 mg PO BID 08/12/20 08/12/20 08/28/20 History dexmethylphenidate 10 mg tablet 10 mg PO BID 08/12/20 08/12/20 08/28/20 History diphenhydramine HCl 50 mg capsule 50 mg PO TID PRN 08/12/20 08/12/20 Unknown History (Banophen) epinephrine 0.1 mg/mL injection 0.1 mg IM Q30M PRN 08/12/20 08/12/20 08/26/20 History syringe 0.1 mg famotidine 40 mg tablet 40 mg PO BEDTIME 08/12/20 08/12/20 08/28/20 History fluticasone 100 mcg-salmeterol 50 1 inh INHALATION BID 08/12/20 08/12/20 08/28/20 History mcg/dose blistr powdr for inhalation (Advair Diskus) fluticasone propionate 50 1 spray INTRANASAL BID 08/12/20 08/12/20 08/28/20 History mcg/actuation nasal spray,suspension ipratropium 0.5 mg-albuterol 3 mg 3 ml INHALATION QID 08/12/20 08/12/20 08/26/20 History (2.5 mg base)/3 mL nebulization 3 mL soln levonorgestrel 0.15 mg-ethinyl 1 tab PO DAILY 08/12/20 08/12/20 08/28/20 History estradiol 30 mcg tablets,3 mos pack(91) temazepam 30 mg capsule 30 mg PO BEDTIME PRN 08/12/20 08/12/20 08/26/20 History 30 mg topiramate 50 mg tablet 50 mg PO BID 08/12/20 08/12/20 08/27/20 History Exam Exam Date and Time: September 09, 2021 0647 Height,Weight and Vital Signs: Height 5 ft 8 in Weight 63.503 kg Last Vital Signs Temp 97.6 F 09/09/21 06:27 Pulse 103 H 09/09/21 06:27 Resp 16 09/09/21 06:27 BP 125/70 09/09/21 06:27 Pulse Ox 97 09/09/21 06:27 Airway Mallampati Class: II TM Dist: >3cm Neck ROM: Full Heart: rrr Lungs: cta Assessment and Plan Assessment Anesthesia Assessment: Anesthesia Plan Discussed and Chart Reviewed Final Anesthetic Review Family History of Problems with Anesthesia: No History of Problems with Anesthesia: No NPO: Yes ASA Class: III Final Preanesthetic Review: No Changes in Pt Med Stat, Meds/Allgs Chart Reviewed and Consent Obtained/Reviewed Patient Risk: Intermediate Procedure Risk: Intermediate Anesthetic Plan Anesthetic Plan: GA Disposition: Standard PACU
[2021-09-09] MEDS: Lactated Ringers 1,000 ML 50 ML IVCONT (07:05)
--- NOTE | 2021-09-09 07:06 | MHC.SHP ---
Pre-Procedural Eval Section A Date of Service: 09/09/21 The patient is an INPATIENT: No Section B Chief Complaint: Severe depression Details of Present Illness: hx bipolar depression Relevant Family History (Specify if Yes): No Relevant Social History: None Present Medications: see Short Stay [facility] assessment Medical History: Significant History (asthma) History of Previous Operations: Relevant previous surgery/procedure and date(s) (ect) Allergies: Allergies Allergy/AdvReac Type Severity Reaction Status Date / Time adhesive tape [ADHESIVE TAPE] Allergy Unknown unknown Verified 09/09/21 06:26 bee pollen [BEE STINGS] Allergy Unknown anaphylaxis Verified 09/09/21 06:26 Iodinated Contrast Media Allergy Unknown unknown Verified 09/09/21 06:26 [CONTRAST, IV] metaxalone [From SKELAXIN] Allergy Unknown unknown Verified 09/09/21 06:26 monocryl/vicryl sutures Allergy Unknown unknown Verified 09/09/21 06:26 morphine [MORPHINE] Allergy Unknown unknown Verified 09/09/21 06:26 moxifloxacin [From AVELOX] Allergy Unknown unknown Verified 09/09/21 06:26 orange [ORANGES] Allergy Unknown anaphylaxis Verified 09/09/21 06:26 red dye [RED DYE] Allergy Unknown unknown Verified 09/09/21 06:26 Sulfa (Sulfonamide Allergy Unknown UNKNOWN Verified 09/09/21 06:26 Antibiotics) [SULFA (SULFONAMIDE ANTIBIOTICS)] lamotrigine [From LAMICTAL] AdvReac Intermediate hx of Verified 11/18/20 15:07 yennifer on doses greater that 200 mg Adhesive Bandages Allergy Unknown Hives Uncoded 11/18/20 15:07 bees/wasps Allergy Unknown Anaphylaxis Uncoded 11/18/20 15:07 ivp contrast dye Allergy Unknown Hives Uncoded 11/18/20 15:07 lychees Allergy Unknown Hives Uncoded 11/18/20 15:07 oranges Allergy Unknown Anaphylaxis Uncoded 11/18/20 15:07 red dyes Allergy Unknown Hives Uncoded 11/18/20 15:07 Review of Systems Sugical H&P ROS: Negative: Cardiovascular, Respiratory and Gastrointestinal and Yes, Specify: Neurological (tremor) Exam Surgical H&P Exam: Normal: HEENT, Normal: Heart (rr no murmur) and Normal: Lungs (clear) Plan Diagnosis/Plan: Unchanged I have reviewed the history and physical and performed a pertinent physical examination on my patient. No changes have occurred unless specified.
--- NOTE | 2021-09-09 07:16 | HO.ECTPROC ---
ECT Procedure Note Diagnosis/Treatment Date of Service: 09/09/21 Diagnosis: Bipolar disorder Previous ECT Date: 08/28/21 Treatment: Maintenance Interval Clinical Notes: pt much more stable ECT Settings Device: THYMATRON DGx Electrode Placement: Right Unilateral Program/Pulse Width: 0.25 Energy Percent: 20 Seizure Duration By EEG (in seconds): 45 Medications Administration General Anesthetic: Etomidate (16) Muscle Relaxant: Succinylcholine (100) Ancillary Medications Analgesics: Torodol - Pre ECT Anti-emetics: Zofran - Pre ECT Miscillaneous Medications: Propofol and Midazolam Airway Management Airway Management: Bag Mask Ventilation Treatment Recommendations No Changes Recommended: No change Notes: f/u tx 3 weeks Pt Tolerated Procedure w/o Issue: Yes
[2021-09-09] MEDS: oxyCODONE HCl Immed Release 5 MG TABLET 10 MG PO (08:13)
[2021-09-09] MEDS: Acetaminophen 325 MG TABLET 650 MG PO (08:13)
== END 2021-09-09 09:00 | disposition home or self-care (01) ==
PROVIDERS: PCP Internal Medicine; Visit Provider Psychiatry & Neurology Psychiatry
PROC: (CPT 90870; principal; 2021-09-09 07:00)
DX: F31.9 Bipolar disorder, unspecified (principal); J45.909 Unspecified asthma, uncomplicated; Z79.899 Other long term (current) drug therapy; Z91.041 Radiographic dye allergy status; Z91.040 Latex allergy status; Z88.2 Allergy status to sulfonamides; Z88.8 Allergy status to other drugs, medicaments and biological substances
CPT/HCPCS: 90870; J0330; J1885; J2250; J2405

== ENCOUNTER 2021-10-05 06:19 | Day surgery (SDC) | payer OTHER, SELFPAY ==
[2021-10-05] VITALS (7 sets, daily range): BP systolic 97–126; BP diastolic 46–82; PULSE 68–99; RESP 16–20; TEMP 36.2–37.3; O2SAT 97–99; BMI 21.2
[2021-10-05 06:08] LABS: COVID-19 Test Negative (Negative)
[2021-10-05 06:31] LABS: UPreg QC Valid YES; Urine Pregnancy NEGATIVE (NEGATIVE)
--- NOTE | 2021-10-05 06:46 | P.CONAN_ITS ---
[facility] Active Problems Active Problems: All Active Problems (Updated 07/01/21 @ 15:08 by Parker cole) Bipolar 1 disorder (Acute) History of HPV infection (Acute) Well woman exam with routine gynecological exam (Acute) Past Medical History Medical History Anxiety Bipolar 1 disorder Depression Deviated septum History of electroconvulsive therapy Vasovagal episode Family History Family history of problems with anesthesia: No Surgical History Surgical History History of bunionectomy History of Problems with Anesthesia: No Social History Social History Household Members: None Housing: Apartment Are you a primary health care administrator to a significant other at home: No Do you presently have visiting nurse or other home services: No Patient Tobacco Use Status: Never used Tobacco Second Hand Smoke Exposure: No Use of substances other than those prescribed or required for medical reasons: No Are you DNR?: No Advance Directives: No Advance Directives Information Provided: Yes service: No Sexual orientation: Did not discuss. Meds Allergies Allergy/AdvReac Type Severity Reaction Status Date / Time adhesive tape [ADHESIVE TAPE] Allergy Unknown unknown Verified 09/09/21 06:26 bee pollen [BEE STINGS] Allergy Unknown anaphylaxis Verified 09/09/21 06:26 Iodinated Contrast Media Allergy Unknown unknown Verified 09/09/21 06:26 [CONTRAST, IV] metaxalone [From SKELAXIN] Allergy Unknown unknown Verified 09/09/21 06:26 monocryl/vicryl sutures Allergy Unknown unknown Verified 09/09/21 06:26 morphine [MORPHINE] Allergy Unknown unknown Verified 09/09/21 06:26 moxifloxacin [From AVELOX] Allergy Unknown unknown Verified 09/09/21 06:26 orange [ORANGES] Allergy Unknown anaphylaxis Verified 09/09/21 06:26 red dye [RED DYE] Allergy Unknown unknown Verified 09/09/21 06:26 Sulfa (Sulfonamide Allergy Unknown UNKNOWN Verified 09/09/21 06:26 Antibiotics) [SULFA (SULFONAMIDE ANTIBIOTICS)] lamotrigine [From LAMICTAL] AdvReac Intermediate hx of Verified 11/18/20 15:07 yennifer on doses greater that 200 mg Adhesive Bandages Allergy Unknown Hives Uncoded 11/18/20 15:07 bees/wasps Allergy Unknown Anaphylaxis Uncoded 11/18/20 15:07 ivp contrast dye Allergy Unknown Hives Uncoded 11/18/20 15:07 lychees Allergy Unknown Hives Uncoded 11/18/20 15:07 oranges Allergy Unknown Anaphylaxis Uncoded 11/18/20 15:07 red dyes Allergy Unknown Hives Uncoded 11/18/20 15:07 Active Medications: Current Medications Lactated Ringer's (Lr) 1,000 mls @ 50 mls/hr IVCONT .Q20H [place] Home Medications Medication Instructions Recorded Confirmed Last Taken Type albuterol 90 mcg/actuation aerosol mcg INHALATION 08/12/20 08/26/20 History inhaler mcg cetirizine 10 mg tablet (Zyrtec) 10 mg PO DAILY 08/12/20 08/12/20 08/28/20 History clonazepam 1 mg tablet 1 mg PO DAILY 08/12/20 08/12/20 08/26/20 History 1 mg clozapine 50 mg tablet (Clozaril) 50 mg PO BID 08/12/20 08/12/20 08/28/20 History dexmethylphenidate 10 mg tablet 10 mg PO BID 08/12/20 08/12/20 08/28/20 History diphenhydramine HCl 50 mg capsule 50 mg PO TID PRN 08/12/20 08/12/20 Unknown History (Banophen) epinephrine 0.1 mg/mL injection 0.1 mg IM Q30M PRN 08/12/20 08/12/20 08/26/20 History syringe 0.1 mg famotidine 40 mg tablet 40 mg PO BEDTIME 08/12/20 08/12/20 08/28/20 History fluticasone 100 mcg-salmeterol 50 1 inh INHALATION BID 08/12/20 08/12/20 08/28/20 History mcg/dose blistr powdr for inhalation (Advair Diskus) fluticasone propionate 50 1 spray INTRANASAL BID 08/12/20 08/12/20 08/28/20 History mcg/actuation nasal spray,suspension ipratropium 0.5 mg-albuterol 3 mg 3 ml INHALATION QID 08/12/20 08/12/20 08/26/20 History (2.5 mg base)/3 mL nebulization 3 mL soln levonorgestrel 0.15 mg-ethinyl 1 tab PO DAILY 08/12/20 08/12/20 08/28/20 History estradiol 30 mcg tablets,3 mos pack(91) temazepam 30 mg capsule 30 mg PO BEDTIME PRN 08/12/20 08/12/20 08/26/20 History 30 mg topiramate 50 mg tablet 50 mg PO BID 08/12/20 08/12/20 08/27/20 History Exam Exam Date and Time: October 05, 2021 0646 Height,Weight and Vital Signs: Height 5 ft 8 in Weight 63.503 kg Last Vital Signs Temp 97.1 F 10/05/21 06:31 Pulse 99 10/05/21 06:31 Resp 16 10/05/21 06:31 BP 114/46 L 10/05/21 06:31 Pulse Ox 97 10/05/21 06:31 Pertinent Lab Results Pertinent Lab Results: Laboratory Tests 10/05/21 10/05/21 05:45 06:20 Urine Test NEGATIVE COVID-19 (DEXTER) Negative COVID-19 Clin Com See Note Airway Mallampati Class: II TM Dist: >3cm Neck ROM: Full Heart: rrr Lungs: cta Assessment and Plan Assessment Anesthesia Assessment: Anesthesia Plan Discussed and Chart Reviewed Final Anesthetic Review Family History of Problems with Anesthesia: No History of Problems with Anesthesia: No NPO: Yes ASA Class: III Final Preanesthetic Review: No Changes in Pt Med Stat, Meds/Allgs Chart Reviewed and Consent Obtained/Reviewed Patient Risk: Intermediate Procedure Risk: Intermediate Anesthetic Plan Anesthetic Plan: GA Disposition: Standard PACU
[2021-10-05] MEDS: Lactated Ringers 1,000 ML 50 ML IVCONT (06:48)
--- NOTE | 2021-10-05 07:04 | MHC.SHP ---
Pre-Procedural Eval Section A Date of Service: 10/05/21 The patient is an INPATIENT: No Changes since office visit: No Cold of Flu in the past 2 weeks, No New Medical Problems, No Changes in Medication and No Patient answered all questions The History & Physical has been completed within 30 days and I have reviewed it.: Yes Section B Chief Complaint: depression Allergies: Allergies Allergy/AdvReac Type Severity Reaction Status Date / Time adhesive tape [ADHESIVE TAPE] Allergy Unknown unknown Verified 09/09/21 06:26 bee pollen [BEE STINGS] Allergy Unknown anaphylaxis Verified 09/09/21 06:26 Iodinated Contrast Media Allergy Unknown unknown Verified 09/09/21 06:26 [CONTRAST, IV] metaxalone [From SKELAXIN] Allergy Unknown unknown Verified 09/09/21 06:26 monocryl/vicryl sutures Allergy Unknown unknown Verified 09/09/21 06:26 morphine [MORPHINE] Allergy Unknown unknown Verified 09/09/21 06:26 moxifloxacin [From AVELOX] Allergy Unknown unknown Verified 09/09/21 06:26 orange [ORANGES] Allergy Unknown anaphylaxis Verified 09/09/21 06:26 red dye [RED DYE] Allergy Unknown unknown Verified 09/09/21 06:26 Sulfa (Sulfonamide Allergy Unknown UNKNOWN Verified 09/09/21 06:26 Antibiotics) [SULFA (SULFONAMIDE ANTIBIOTICS)] lamotrigine [From LAMICTAL] AdvReac Intermediate hx of Verified 11/18/20 15:07 yennifer on doses greater that 200 mg Adhesive Bandages Allergy Unknown Hives Uncoded 11/18/20 15:07 bees/wasps Allergy Unknown Anaphylaxis Uncoded 11/18/20 15:07 ivp contrast dye Allergy Unknown Hives Uncoded 11/18/20 15:07 lychees Allergy Unknown Hives Uncoded 11/18/20 15:07 oranges Allergy Unknown Anaphylaxis Uncoded 11/18/20 15:07 red dyes Allergy Unknown Hives Uncoded 11/18/20 15:07 Plan I have reviewed the history and physical and performed a pertinent physical examination on my patient. No changes have occurred unless specified.
--- NOTE | 2021-10-05 07:05 | HO.ECTPROC ---
ECT Procedure Note Diagnosis/Treatment Date of Service: 10/05/21 Diagnosis: Bipolar disorder Previous ECT Date: 09/09/21 Treatment: Maintenance Interval Clinical Notes: The patient reports stable mood, besides mild chronic dysphoria and insomnia, recently re-started on Trazodone with limited response.. ECT Settings Device: THYMATRON DGx Electrode Placement: Right Unilateral Program/Pulse Width: 0.25 Energy Percent: 20 Seizure Duration By EEG (in seconds): 40 By Motor Observation (in seconds): 0 Medications Administration General Anesthetic: Etomidate (16) Muscle Relaxant: Succinylcholine (100) Ancillary Medications Analgesics: Torodol - Pre ECT Anti-emetics: Zofran - Pre ECT Miscillaneous Medications: Propofol (30) Airway Management Airway Management: Bag Mask Ventilation Treatment Recommendations No Changes Recommended: No change Pt Tolerated Procedure w/o Issue: Yes
[2021-10-05] MEDS: Acetaminophen 325 MG TABLET 650 MG PO (07:50)
[2021-10-05] MEDS: oxyCODONE HCl Immed Release 5 MG TABLET 10 MG PO (07:51)
== END 2021-10-05 08:42 | disposition home or self-care (01) ==
PROVIDERS: Psychiatry & Neurology Psychiatry; PCP Internal Medicine; Visit Provider Psychiatry & Neurology Psychiatry
PROC: (CPT 90870; principal; 2021-10-05 07:30)
DX: F31.9 Bipolar disorder, unspecified (principal); G47.00 Insomnia, unspecified
CPT/HCPCS: 36415; 81025; 87635; 90870; J0330; J1885; J2250; J2405

== ENCOUNTER 2021-10-19 05:50 | Day surgery (SDC) | payer OTHER, SELFPAY ==
[2021-10-19] VITALS (7 sets, daily range): BP systolic 111–132; BP diastolic 68–84; PULSE 85–115; RESP 16–20; TEMP 36.9–37.1; O2SAT 98–100; BMI 21.2
[2021-10-19 06:41] LABS: COVID-19 Test Negative (Negative); IDNOW Serial# 9DD0AD1C
[2021-10-19 07:21] LABS: UPreg QC Valid YES; Urine Pregnancy NEGATIVE (NEGATIVE)
--- NOTE | 2021-10-19 07:26 | P.HPSUR_ITS ---
Pre-Procedural Eval Section A Date of Service: 10/19/21 The patient is an INPATIENT: No Changes since office visit: No Cold of Flu in the past 2 weeks, No New Medical Problems, No Changes in Medication and No Patient answered all questions The History & Physical has been completed within 30 days and I have reviewed it.: Yes Section B Chief Complaint: depression Details of Present Illness: The patient reported exacerbation of dysphoria but no active suicidal thoughts. Chronically dysphoric. Relevant Family History (Specify if Yes): No Relevant Social History: None Present Medications: see Short Stay [facility] assessment Medical History: No relevant PMH History of Previous Operations: No relevant previous surgery Allergies: Allergies Allergy/AdvReac Type Severity Reaction Status Date / Time adhesive tape [ADHESIVE TAPE] Allergy Unknown unknown Verified 09/09/21 06:26 bee pollen [BEE STINGS] Allergy Unknown anaphylaxis Verified 09/09/21 06:26 Iodinated Contrast Media Allergy Unknown unknown Verified 09/09/21 06:26 [CONTRAST, IV] metaxalone [From SKELAXIN] Allergy Unknown unknown Verified 09/09/21 06:26 monocryl/vicryl sutures Allergy Unknown unknown Verified 09/09/21 06:26 morphine [MORPHINE] Allergy Unknown unknown Verified 09/09/21 06:26 moxifloxacin [From AVELOX] Allergy Unknown unknown Verified 09/09/21 06:26 orange [ORANGES] Allergy Unknown anaphylaxis Verified 09/09/21 06:26 red dye [RED DYE] Allergy Unknown unknown Verified 09/09/21 06:26 Sulfa (Sulfonamide Allergy Unknown UNKNOWN Verified 09/09/21 06:26 Antibiotics) [SULFA (SULFONAMIDE ANTIBIOTICS)] lamotrigine [From LAMICTAL] AdvReac Intermediate hx of Verified 11/18/20 15:07 yennifer on doses greater that 200 mg Adhesive Bandages Allergy Unknown Hives Uncoded 11/18/20 15:07 bees/wasps Allergy Unknown Anaphylaxis Uncoded 11/18/20 15:07 ivp contrast dye Allergy Unknown Hives Uncoded 11/18/20 15:07 lychees Allergy Unknown Hives Uncoded 11/18/20 15:07 oranges Allergy Unknown Anaphylaxis Uncoded 11/18/20 15:07 red dyes Allergy Unknown Hives Uncoded 11/18/20 15:07 Review of Systems Sugical H&P ROS: Negative: Constitution, Cardiovascular, Respiratory, Hem-Onc, Allergic/Immunologic, Gastrointestinal, Genitourinary, Musculoskeletal, Integumentary, Endocrine and Eyes/Ears/Nose/Throat and Yes, Specify: Neurological (mild tremor) and Psychiatric (Bipolar disorder) Exam Surgical H&P Exam: Normal: HEENT, Normal: Heart, Normal: Lungs, Normal: Extremi ties, Normal: Abdomen, Normal: Skin and Normal: Neurological (mild tremor) Plan Diagnosis/Plan: Unchanged I have reviewed the history and physical and performed a pertinent physical examination on my patient. No changes have occurred unless specified.
--- NOTE | 2021-10-19 07:27 | P.CONAN_ITS ---
[facility] Active Problems Active Problems: All Active Problems (Updated 07/01/21 @ 15:08 by Parker cole) Bipolar 1 disorder (Acute) History of HPV infection (Acute) Well woman exam with routine gynecological exam (Acute) Past Medical History Medical History Anxiety Bipolar 1 disorder Depression Deviated septum History of electroconvulsive therapy Vasovagal episode Family History Family history of problems with anesthesia: No Surgical History Surgical History History of bunionectomy History of Problems with Anesthesia: No Social History Social History Household Members: None Housing: Apartment Are you a primary memory care program director to a significant other at home: No Do you presently have visiting nurse or other home services: No Patient Tobacco Use Status: Never used Tobacco Second Hand Smoke Exposure: No Use of substances other than those prescribed or required for medical reasons: No Are you DNR?: No Advance Directives: No Advance Directives Information Provided: Yes service: No Sexual orientation: Did not discuss. Meds Allergies Allergy/AdvReac Type Severity Reaction Status Date / Time adhesive tape [ADHESIVE TAPE] Allergy Unknown unknown Verified 09/09/21 06:26 bee pollen [BEE STINGS] Allergy Unknown anaphylaxis Verified 09/09/21 06:26 Iodinated Contrast Media Allergy Unknown unknown Verified 09/09/21 06:26 [CONTRAST, IV] metaxalone [From SKELAXIN] Allergy Unknown unknown Verified 09/09/21 06:26 monocryl/vicryl sutures Allergy Unknown unknown Verified 09/09/21 06:26 morphine [MORPHINE] Allergy Unknown unknown Verified 09/09/21 06:26 moxifloxacin [From AVELOX] Allergy Unknown unknown Verified 09/09/21 06:26 orange [ORANGES] Allergy Unknown anaphylaxis Verified 09/09/21 06:26 red dye [RED DYE] Allergy Unknown unknown Verified 09/09/21 06:26 Sulfa (Sulfonamide Allergy Unknown UNKNOWN Verified 09/09/21 06:26 Antibiotics) [SULFA (SULFONAMIDE ANTIBIOTICS)] lamotrigine [From LAMICTAL] AdvReac Intermediate hx of Verified 11/18/20 15:07 yennifer on doses greater that 200 mg Adhesive Bandages Allergy Unknown Hives Uncoded 11/18/20 15:07 bees/wasps Allergy Unknown Anaphylaxis Uncoded 11/18/20 15:07 ivp contrast dye Allergy Unknown Hives Uncoded 11/18/20 15:07 lychees Allergy Unknown Hives Uncoded 11/18/20 15:07 oranges Allergy Unknown Anaphylaxis Uncoded 11/18/20 15:07 red dyes Allergy Unknown Hives Uncoded 11/18/20 15:07 Active Medications: Current Medications Lactated Ringer's (Lr) 1,000 mls @ 50 mls/hr IVCONT .Q20H [place] Home Medications Medication Instructions Recorded Confirmed Last Taken Type albuterol 90 mcg/actuation aerosol mcg INHALATION 08/12/20 08/26/20 History inhaler mcg cetirizine 10 mg tablet (Zyrtec) 10 mg PO DAILY 08/12/20 08/12/20 08/28/20 History clonazepam 1 mg tablet 1 mg PO DAILY 08/12/20 08/12/20 08/26/20 History 1 mg clozapine 50 mg tablet (Clozaril) 50 mg PO BID 08/12/20 08/12/20 08/28/20 History dexmethylphenidate 10 mg tablet 10 mg PO BID 08/12/20 08/12/20 08/28/20 History diphenhydramine HCl 50 mg capsule 50 mg PO TID PRN 08/12/20 08/12/20 Unknown History (Banophen) epinephrine 0.1 mg/mL injection 0.1 mg IM Q30M PRN 08/12/20 08/12/20 08/26/20 History syringe 0.1 mg famotidine 40 mg tablet 40 mg PO BEDTIME 08/12/20 08/12/20 08/28/20 History fluticasone 100 mcg-salmeterol 50 1 inh INHALATION BID 08/12/20 08/12/20 08/28/20 History mcg/dose blistr powdr for inhalation (Advair Diskus) fluticasone propionate 50 1 spray INTRANASAL BID 08/12/20 08/12/20 08/28/20 History mcg/actuation nasal spray,suspension ipratropium 0.5 mg-albuterol 3 mg 3 ml INHALATION QID 08/12/20 08/12/20 08/26/20 History (2.5 mg base)/3 mL nebulization 3 mL soln levonorgestrel 0.15 mg-ethinyl 1 tab PO DAILY 08/12/20 08/12/20 08/28/20 History estradiol 30 mcg tablets,3 mos pack(91) temazepam 30 mg capsule 30 mg PO BEDTIME PRN 08/12/20 08/12/20 08/26/20 History 30 mg topiramate 50 mg tablet 50 mg PO BID 08/12/20 08/12/20 08/27/20 History Exam Exam Date and Time: October 19, 2021 0727 Height,Weight and Vital Signs: Height 5 ft 8 in Weight 63.503 kg Last Vital Signs Temp 98.4 F 10/19/21 06:56 Pulse 115 H 10/19/21 06:56 Resp 16 10/19/21 06:56 BP 132/81 10/19/21 06:56 Pulse Ox 98 10/19/21 06:56 Pertinent Lab Results Pertinent Lab Results: Laboratory Tests 10/19/21 10/19/21 06:15 06:50 Urine Test NEGATIVE COVID-19 (DEXTER) Negative COVID-19 Clin Com See Note Airway Mallampati Class: II TM Dist: >3cm Neck ROM: Full Heart: rrr Lungs: cta Assessment and Plan Assessment Anesthesia Assessment: Anesthesia Plan Discussed and Chart Reviewed Final Anesthetic Review Family History of Problems with Anesthesia: No History of Problems with Anesthesia: No NPO: Yes ASA Class: III Final Preanesthetic Review: No Changes in Pt Med Stat, Meds/Allgs Chart Reviewed and Consent Obtained/Reviewed Patient Risk: Intermediate Procedure Risk: Intermediate Anesthetic Plan Anesthetic Plan: GA Disposition: Standard PACU
--- NOTE | 2021-10-19 07:27 | HO.ECTPROC ---
ECT Procedure Note Diagnosis/Treatment Date of Service: 10/19/21 Diagnosis: Bipolar disorder Treatment: Maintenance Interval Clinical Notes: The patient reported chronic dysphoria, worsened depression in the last weeks. ECT Settings Device: THYMATRON DGx Electrode Placement: Right Unilateral Program/Pulse Width: 0.25 Energy Percent: 20 Seizure Duration By EEG (in seconds): 59 By Motor Observation (in seconds): 0 Medications Administration General Anesthetic: Etomidate (16) Muscle Relaxant: Succinylcholine (100) Ancillary Medications Analgesics: Torodol - Pre ECT Anti-emetics: Zofran - Pre ECT Miscillaneous Medications: Propofol and Midazolam Airway Management Airway Management: Bag Mask Ventilation Treatment Recommendations No Changes Recommended: No change Pt Tolerated Procedure w/o Issue: Yes
[2021-10-19] MEDS: Acetaminophen 325 MG TABLET 650 MG PO (08:34)
[2021-10-19] MEDS: oxyCODONE HCl Immed Release 5 MG TABLET 10 MG PO (08:35)
[2021-10-19] MEDS: LORazepam 1 MG TABLET PO (09:10)
== END 2021-10-19 09:37 | disposition home or self-care (01) ==
PROVIDERS: PCP Internal Medicine; Visit Provider Psychiatry & Neurology Psychiatry
PROC: (CPT 90870; principal; 2021-10-19 08:00)
DX: F31.5 Bipolar disorder, current episode depressed, severe, with psychotic features (principal); Z91.040 Latex allergy status; Z91.041 Radiographic dye allergy status; Z88.2 Allergy status to sulfonamides; Z88.8 Allergy status to other drugs, medicaments and biological substances
CPT/HCPCS: 36415; 81025; 87635; 90870; J0330; J1885; J2250; J2405

== ENCOUNTER 2021-11-02 06:25 | Day surgery (SDC) | payer OTHER, SELFPAY ==
[2021-11-02] VITALS (10 sets, daily range): BP systolic 105–128; BP diastolic 63–92; PULSE 72–100; RESP 12–20; TEMP 36.4–36.8; O2SAT 96–100; BMI 21.6
--- NOTE | 2021-11-02 | ECG_ITS ---
Test Reason : preop Blood Pressure : / mmHG Vent. Rate : 082 BPM Atrial Rate : 082 BPM P-R Int : 142 ms QRS Dur : 084 ms QT Int : 362 ms P-R-T Axes : 069 046 052 degrees QTc Int : 422 ms Normal sinus rhythm Normal ECG When compared with ECG of 02-JUL-2021 08:20, No significant change was found Referred By: Robel Mena Electronically Signed By:MONIQUE MARCIAL
[2021-11-02 06:41] LABS: COVID-19 Test Negative (Negative); IDNOW Serial# 9DD0AD1C
--- NOTE | 2021-11-02 06:58 | P.CONAN_ITS ---
[facility] Active Problems Active Problems: All Active Problems (Updated 07/01/21 @ 15:08 by Parker cole) Bipolar 1 disorder (Acute) History of HPV infection (Acute) Well woman exam with routine gynecological exam (Acute) Past Medical History Medical History Anxiety Bipolar 1 disorder Depression Deviated septum History of electroconvulsive therapy Vasovagal episode Family History Family history of problems with anesthesia: No Surgical History Surgical History History of bunionectomy History of Problems with Anesthesia: No Social History Social History Household Members: None Housing: Apartment Are you a primary career orientation teacher to a significant other at home: No Do you presently have visiting nurse or other home services: No Patient Tobacco Use Status: Never used Tobacco Second Hand Smoke Exposure: No Advance Directives: No Advance Directives Information Provided: Yes service: No Sexual orientation: Did not discuss. Meds Allergies Allergy/AdvReac Type Severity Reaction Status Date / Time adhesive tape [ADHESIVE TAPE] Allergy Unknown unknown Verified 09/09/21 06:26 bee pollen [BEE STINGS] Allergy Unknown anaphylaxis Verified 09/09/21 06:26 Iodinated Contrast Media Allergy Unknown unknown Verified 09/09/21 06:26 [CONTRAST, IV] metaxalone [From SKELAXIN] Allergy Unknown unknown Verified 09/09/21 06:26 monocryl/vicryl sutures Allergy Unknown unknown Verified 09/09/21 06:26 morphine [MORPHINE] Allergy Unknown unknown Verified 09/09/21 06:26 moxifloxacin [From AVELOX] Allergy Unknown unknown Verified 09/09/21 06:26 orange [ORANGES] Allergy Unknown anaphylaxis Verified 09/09/21 06:26 red dye [RED DYE] Allergy Unknown unknown Verified 09/09/21 06:26 Sulfa (Sulfonamide Allergy Unknown UNKNOWN Verified 09/09/21 06:26 Antibiotics) [SULFA (SULFONAMIDE ANTIBIOTICS)] lamotrigine [From LAMICTAL] AdvReac Intermediate hx of Verified 11/18/20 15:07 yennifer on doses greater that 200 mg Adhesive Bandages Allergy Unknown Hives Uncoded 11/18/20 15:07 bees/wasps Allergy Unknown Anaphylaxis Uncoded 11/18/20 15:07 ivp contrast dye Allergy Unknown Hives Uncoded 11/18/20 15:07 lychees Allergy Unknown Hives Uncoded 11/18/20 15:07 oranges Allergy Unknown Anaphylaxis Uncoded 11/18/20 15:07 red dyes Allergy Unknown Hives Uncoded 11/18/20 15:07 Active Medications: Current Medications Lactated Ringer's (Lr) 1,000 mls @ 50 mls/hr IVCONT .Q20H [place] Home Medications Medication Instructions Recorded Confirmed Last Taken Type albuterol 90 mcg/actuation aerosol mcg INHALATION 08/12/20 08/26/20 History inhaler mcg cetirizine 10 mg tablet (Zyrtec) 10 mg PO DAILY 08/12/20 08/12/20 08/28/20 History clonazepam 1 mg tablet 1 mg PO DAILY 08/12/20 08/12/20 08/26/20 History 1 mg clozapine 50 mg tablet (Clozaril) 50 mg PO BID 08/12/20 08/12/20 08/28/20 History dexmethylphenidate 10 mg tablet 10 mg PO BID 08/12/20 08/12/20 08/28/20 History diphenhydramine HCl 50 mg capsule 50 mg PO TID PRN 08/12/20 08/12/20 Unknown History (Banophen) epinephrine 0.1 mg/mL injection 0.1 mg IM Q30M PRN 08/12/20 08/12/20 08/26/20 History syringe 0.1 mg famotidine 40 mg tablet 40 mg PO BEDTIME 08/12/20 08/12/20 08/28/20 History fluticasone 100 mcg-salmeterol 50 1 inh INHALATION BID 08/12/20 08/12/20 0 History mcg/dose blistr powdr for inhalation (Advair Diskus) fluticasone propionate 50 1 spray INTRANASAL BID 08/12/20 08/12/20 08/28/20 History mcg/actuation nasal spray,suspension ipratropium 0.5 mg-albuterol 3 mg 3 ml INHALATION QID 08/12/20 08/12/20 08/26/20 History (2.5 mg base)/3 mL nebulization 3 mL soln levonorgestrel 0.15 mg-ethinyl 1 tab PO DAILY 08/12/20 08/12/20 08/28/20 History estradiol 30 mcg tablets,3 mos pack(91) temazepam 30 mg capsule 30 mg PO BEDTIME PRN 08/12/20 08/12/20 08/26/20 History 30 mg topiramate 50 mg tablet 50 mg PO BID 08/12/20 08/12/20 08/27/20 History Exam Exam Date and Time: November 02, 2021 0658 Pertinent Lab Results Pertinent Lab Results: Laboratory Tests 11/02/21 06:16 COVID-19 (DEXTER) Negative COVID-19 Clin Com See Note Airway Mallampati Class: II TM Dist: >3cm Neck ROM: Full Heart: rrr Lungs: cta Assessment and Plan Assessment Anesthesia Assessment: Anesthesia Plan Discussed and Chart Reviewed Final Anesthetic Review Family History of Problems with Anesthesia: No History of Problems with Anesthesia: No NPO: Yes ASA Class: III Final Preanesthetic Review: No Changes in Pt Med Stat, Meds/Allgs Chart Reviewed and Consent Obtained/Reviewed Patient Risk: Intermediate Procedure Risk: Intermediate Anesthetic Plan Anesthetic Plan: GA Disposition: Standard PACU
--- NOTE | 2021-11-02 07:15 | MHC.SHP ---
Pre-Procedural Eval Section A Date of Service: 11/02/21 The patient is an INPATIENT: No Changes since office visit: Yes Changes in Medication and Yes Patient answered all questions; No Cold of Flu in the past 2 weeks and No New Medical Problems The History & Physical has been completed within 30 days and I have reviewed it.: Yes Section B Chief Complaint: Severe Depression Allergies: Allergies Allergy/AdvReac Type Severity Reaction Status Date / Time adhesive tape [ADHESIVE TAPE] Allergy Unknown unknown Verified 09/09/21 06:26 bee pollen [BEE STINGS] Allergy Unknown anaphylaxis Verified 09/09/21 06:26 Iodinated Contrast Media Allergy Unknown unknown Verified 09/09/21 06:26 [CONTRAST, IV] metaxalone [From SKELAXIN] Allergy Unknown unknown Verified 09/09/21 06:26 monocryl/vicryl sutures Allergy Unknown unknown Verified 09/09/21 06:26 morphine [MORPHINE] Allergy Unknown unknown Verified 09/09/21 06:26 moxifloxacin [From AVELOX] Allergy Unknown unknown Verified 09/09/21 06:26 orange [ORANGES] Allergy Unknown anaphylaxis Verified 09/09/21 06:26 red dye [RED DYE] Allergy Unknown unknown Verified 09/09/21 06:26 Sulfa (Sulfonamide Allergy Unknown UNKNOWN Verified 09/09/21 06:26 Antibiotics) [SULFA (SULFONAMIDE ANTIBIOTICS)] lamotrigine [From LAMICTAL] AdvReac Intermediate hx of Verified 11/18/20 15:07 yennifer on doses greater that 200 mg Adhesive Bandages Allergy Unknown Hives Uncoded 11/18/20 15:07 bees/wasps Allergy Unknown Anaphylaxis Uncoded 11/18/20 15:07 ivp contrast dye Allergy Unknown Hives Uncoded 11/18/20 15:07 lychees Allergy Unknown Hives Uncoded 11/18/20 15:07 oranges Allergy Unknown Anaphylaxis Uncoded 11/18/20 15:07 red dyes Allergy Unknown Hives Uncoded 11/18/20 15:07 Plan I have reviewed the history and physical and performed a pertinent physical examination on my patient. No changes have occurred unless specified.
--- NOTE | 2021-11-02 07:56 | HO.ECTPROC ---
ECT Procedure Note Diagnosis/Treatment Date of Service: 11/02/21 Diagnosis: Bipolar disorder Previous ECT Date: 10/19/21 Treatment: Maintenance Interval Clinical Notes: pt not overly manic periods anxiety ECT Settings Device: THYMATRON DGx Electrode Placement: Right Unilateral Program/Pulse Width: 0.25 Energy Percent: 20 Seizure Duration By EEG (in seconds): 38 Ancillary Medications Analgesics: Torodol - Pre ECT Anti-emetics: Zofran - Pre ECT Miscillaneous Medications: Propofol and Midazolam Airway Management Airway Management: Bag Mask Ventilation Treatment Recommendations No Changes Recommended: No change Pt Tolerated Procedure w/o Issue: Yes
--- NOTE | 2021-11-02 08:04 | HO.ECTPROC ---
ECT Procedure Note Diagnosis/Treatment Date of Service: 11/02/21 Diagnosis: Bipolar disorder ECT Settings Device: THYMATRON DGx
[2021-11-02 08:32] LABS: MANUAL DIFF FLAG NO
[2021-11-02 08:33] LABS: Basophils Absolute Auto 0.1 X10*3/uL (0.0-0.2); Basophils Percent Auto 1.3 % (0-2); Eosinophils Absolute Auto 0.2 X10*3/uL (0.0-0.4); Eosinophils Percent Auto 3.8 % (0-4); Hematocrit 34.3 % (37.0-47.0); Hemoglobin 11.6 g/dl (12.0-16.0); Imm Gran Abs Auto 0.01 X10*3/uL (0.00-0.03); Imm Gran Pct Auto 0.2 % (0.0-0.4); Lymphocytes Absolute Auto 2.4 X10*3/uL (1.2-4.9); Lymphocytes Percent Auto 43.6 % (20-40); Mean Corpuscular HGB Conc 33.8 g/dl (31.0-35.0); Mean Corpuscular Hemoglobin 29.8 pg (27.0-33.0); Mean Corpuscular Volume 88.2 fL (80.0-98.0); Mean Platelet Volume 9.8 fL (9.4-12.3); Monocytes Absolute Auto 0.5 X10*3/uL (0.1-1.2); Monocytes Percent Auto 8.5 % (2-11); Neutrophils Absolute Auto 2.4 x10*3/uL (2.0-8.3); Neutrophils Percent Auto 42.6 % (45-73); Platelet Count 249 X10*3/uL (160-400); Red Blood Count 3.89 X10*6/uL (4.20-5.50); Red Cell Distribution Width 12.4 % (11.0-16.0); White Blood Count 5.5 X10*3/uL (4.8-10.8)
[2021-11-02] MEDS: Acetaminophen 325 MG TABLET 650 MG PO (08:52)
[2021-11-02] MEDS: oxyCODONE HCl Immed Release 5 MG TABLET 10 MG PO (08:52)
== END 2021-11-02 10:05 | disposition home or self-care (01) ==
PROVIDERS: Psychiatry & Neurology Psychiatry; PCP Internal Medicine; Visit Provider Psychiatry & Neurology Psychiatry
PROC: (CPT 90870; principal; 2021-11-02 07:00)
DX: F31.9 Bipolar disorder, unspecified (principal); F41.9 Anxiety disorder, unspecified; Z20.822 Contact with and (suspected) exposure to COVID-19; Z91.040 Latex allergy status; Z91.041 Radiographic dye allergy status; Z88.8 Allergy status to other drugs, medicaments and biological substances; Z88.2 Allergy status to sulfonamides
CPT/HCPCS: 36415; 85025; 87635; 90870; 93005; J0330; J1885; J2250; J2405

== ENCOUNTER 2021-11-19 14:01 | Outpatient (REF) | payer OTHER, SELFPAY ==
[2021-11-20 14:02] LABS: CT PCR NOT DETECTED (Not Detect.)
[2021-11-20 14:03] LABS: NG PCR NOT DETECTED (Not Detect.)
[2021-11-21 16:00] LABS: BV Int Neg Control Negative (Negative); BV Int Pos Control Positive (Positive)
[2021-11-25 01:07] LABS: HPV mRNA E6/E7 rflx Not Detected (Not Detected)
== END 2021-11-19 14:02 | disposition home or self-care (01) ==
LOC: HO.LAB 14:01
PROVIDERS: PCP Internal Medicine; Visit Provider Advanced Practice Midwife
DX: Z01.419 Encounter for gynecological examination (general) (routine) without abnormal findings (principal); Z11.51 Encounter for screening for human papillomavirus (HPV); F31.9 Bipolar disorder, unspecified; Z20.2 Contact with and (suspected) exposure to infections with a predominantly sexual mode of transmission; Z86.19 Personal history of other infectious and parasitic diseases; Z80.3 Family history of malignant neoplasm of breast
CPT/HCPCS: 87480; 87491; 87510; 87591; 87624; 87660; 88142

== ENCOUNTER 2021-11-20 06:14 | Day surgery (SDC) | payer OTHER, SELFPAY ==
[2021-11-20] VITALS (10 sets, daily range): BP systolic 100–127; BP diastolic 59–75; PULSE 86–115; RESP 16–20; TEMP 36.9–37.3; O2SAT 95–100; BMI 21.6
[2021-11-20 06:41] LABS: COVID-19 Test Negative (Negative)
--- NOTE | 2021-11-20 07:04 | P.HPSUR_ITS ---
Pre-Procedural Eval Section A Date of Service: 11/20/21 The patient is an INPATIENT: No Changes since office visit: No Cold of Flu in the past 2 weeks, No New Medical Problems, No Changes in Medication and No Patient answered all questions The History & Physical has been completed within 30 days and I have reviewed it.: Yes Section B Chief Complaint: depression Details of Present Illness: Long history of mood lability, on Clozaril and ECT for stabilization, chronically dysphoric Relevant Family History (Specify if Yes): Yes Relevant Social History: None Present Medications: see Short Stay Collaborative assessment Medical History: No relevant PMH History of Previous Operations: No relevant previous surgery Allergies: Allergies Allergy/AdvReac Type Severity Reaction Status Date / Time adhesive tape [ADHESIVE TAPE] Allergy Unknown unknown Verified 09/09/21 06:26 bee pollen [BEE STINGS] Allergy Unknown anaphylaxis Verified 09/09/21 06:26 Iodinated Contrast Media Allergy Unknown unknown Verified 09/09/21 06:26 [CONTRAST, IV] metaxalone [From SKELAXIN] Allergy Unknown unknown Verified 09/09/21 06:26 monocryl/vicryl sutures Allergy Unknown unknown Verified 09/09/21 06:26 morphine [MORPHINE] Allergy Unknown unknown Verified 09/09/21 06:26 moxifloxacin [From AVELOX] Allergy Unknown unknown Verified 09/09/21 06:26 orange [ORANGES] Allergy Unknown anaphylaxis Verified 09/09/21 06:26 red dye [RED DYE] Allergy Unknown unknown Verified 09/09/21 06:26 Sulfa (Sulfonamide Allergy Unknown UNKNOWN Verified 09/09/21 06:26 Antibiotics) [SULFA (SULFONAMIDE ANTIBIOTICS)] lamotrigine [From LAMICTAL] AdvReac Intermediate hx of Verified 11/18/20 15:07 yennifer on doses greater that 200 mg Adhesive Bandages Allergy Unknown Hives Uncoded 11/18/20 15:07 bees/wasps Allergy Unknown Anaphylaxis Uncoded 11/18/20 15:07 ivp contrast dye Allergy Unknown Hives Uncoded 11/18/20 15:07 lychees Allergy Unknown Hives Uncoded 11/18/20 15:07 oranges Allergy Unknown Anaphylaxis Uncoded 11/18/20 15:07 red dyes Allergy Unknown Hives Uncoded 11/18/20 15:07 Review of Systems Sugical H&P ROS: Negative: Constitution, Cardiovascular, Respiratory, Neurological, Psychiatric, Hem-Onc, Allergic/Immunologic, Gastrointestinal, Genitourinary, Musculoskeletal, Integumentary, Endocrine and Eyes/Ears/Nose/Thro at Exam Surgical H&P Exam: Normal: HEENT, Normal: Heart, Normal: Lungs, Normal: Extremities, Normal: Abdomen, Normal: Skin and Normal: Neurological Plan Diagnosis/Plan: Unchanged I have reviewed the history and physical and performed a pertinent physical examination on my patient. No changes have occurred unless specified.
--- NOTE | 2021-11-20 07:25 | HO.ECTPROC ---
ECT Procedure Note Diagnosis/Treatment Date of Service: 11/20/21 Diagnosis: Bipolar disorder Treatment: Maintenance Interval Clinical Notes: The patient reported several stressors but able to cope, no evidence of exacerbation of depression but chronic dysphoria and mood lability. ECT Settings Device: THYMATRON DGx Electrode Placement: Right Unilateral Program/Pulse Width: 0.25 Energy Percent: 20 Seizure Duration By EEG (in seconds): 38 By Motor Observation (in seconds): 0 Medications Administration General Anesthetic: Etomidate (18) Muscle Relaxant: Succinylcholine (100) Ancillary Medications Analgesics: Torodol - Pre ECT Anti-emetics: Zofran - Pre ECT Miscillaneous Medications: Propofol Airway Management Airway Management: Bag Mask Ventilation Treatment Recommendations No Changes Recommended: No change Pt Tolerated Procedure w/o Issue: Yes
[2021-11-20] MEDS: oxyCODONE HCl Immed Release 5 MG TABLET 10 MG PO (08:44)
[2021-11-20] MEDS: Acetaminophen 325 MG TABLET 650 MG PO (08:44)
--- NOTE | 2021-11-20 08:47 | HO.ANESPROP2 ---
[facility] Active Problems Active Problems: All Active Problems (Updated 11/19/21 @ 15:11 by Tatyana Boogie CNM) Family history of breast cancer (Acute) Bipolar 1 disorder (Acute) History of HPV infection (Acute) Well woman exam with routine gynecological exam (Acute) Past Medical History Medical History Anxiety Bipolar 1 disorder Depression Deviated septum History of electroconvulsive therapy Vasovagal episode Functional capacity: independent ambulation Patient : No Family History Family history of problems with anesthesia: No Surgical History Surgical History History of bunionectomy History of Problems with Anesthesia: No Social History Social History Household Members: None Housing: Apartment Are you a primary clinical care manager to a significant other at home: No Do you presently have visiting nurse or other home services: No Patient Tobacco Use Status: Never used Tobacco Second Hand Smoke Exposure: No Advance Directives: No Advance Directives Information Provided: Yes service: No Sexual orientation: Did not discuss. Meds Allergies Allergy/AdvReac Type Severity Reaction Status Date / Time adhesive tape [ADHESIVE TAPE] Allergy Unknown unknown Verified 09/09/21 06:26 bee pollen [BEE STINGS] Allergy Unknown anaphylaxis Verified 09/09/21 06:26 Iodinated Contrast Media Allergy Unknown unknown Verified 09/09/21 06:26 [CONTRAST, IV] metaxalone [From SKELAXIN] Allergy Unknown unknown Verified 09/09/21 06:26 monocryl/vicryl sutures Allergy Unknown unknown Verified 09/09/21 06:26 morphine [MORPHINE] Allergy Unknown unknown Verified 09/09/21 06:26 moxifloxacin [From AVELOX] Allergy Unknown unknown Verified 09/09/21 06:26 orange [ORANGES] Allergy Unknown anaphylaxis Verified 09/09/21 06:26 red dye [RED DYE] Allergy Unknown unknown Verified 09/09/21 06:26 Sulfa (Sulfonamide Allergy Unknown UNKNOWN Verified 09/09/21 06:26 Antibiotics) [SULFA (SULFONAMIDE ANTIBIOTICS)] lamotrigine [From LAMICTAL] AdvReac Intermediate hx of Verified 11/18/20 15:07 yennifer on doses greater that 200 mg Adhesive Bandages Allergy Unknown Hives Uncoded 11/18/20 15:07 bees/wasps Allergy Unknown Anaphylaxis Uncoded 11/18/20 15:07 ivp contrast dye Allergy Unknown Hives Uncoded 11/18/20 15:07 lychees Allergy Unknown Hives Uncoded 11/18/20 15:07 oranges Allergy Unknown Anaphylaxis Uncoded 11/18/20 15:07 red dyes Allergy Unknown Hives Uncoded 11/18/20 15:07 Home Medications Medication Instructions Recorded Confirmed Last Taken Type albuterol 90 mcg/actuation aerosol mcg INHALATION 08/12/20 11/19/21 08/26/20 History inhaler mcg cetirizine 10 mg tablet (Zyrtec) 10 mg PO DAILY 08/12/20 11/19/21 08/28/20 History clonazepam 1 mg tablet 1 mg PO DAILY 08/12/20 11/19/21 08/26/20 History 1 mg clozapine 50 mg tablet (Clozaril) 50 mg PO BID 08/12/20 11/19/21 08/28/20 History diphenhydramine HCl 50 mg capsule 50 mg PO TID PRN 08/12/20 11/19/21 Unknown History (Banophen) epinephrine 0.1 mg/mL injection 0.1 mg IM Q30M PRN 08/12/20 11/19/21 08/26/20 History syringe 0.1 mg famotidine 40 mg tablet 40 mg PO BEDTIME 08/12/20 11/19/21 08/28/20 History fluticasone 100 mcg-salmeterol 50 1 inh INHALATION BID 08/12/20 11/19/21 08/28/20 History mcg/dose blistr powdr for inhalation (Advair Diskus) fluticasone propionate 50 1 spray INTRANASAL BID 08/12/20 11/19/21 08/28/20 History mcg/actuation nasal spray,suspension ipratropium 0.5 mg-albuterol 3 mg 3 ml INHALATION QID 08/12/20 11/19/21 08/26/20 History (2.5 mg base)/3 mL nebulization 3 mL soln temazepam 30 mg capsule 30 mg PO BEDTIME PRN 08/12/20 11/19/21 08/26/20 History 30 mg topiramate 50 mg tablet 50 mg PO BID 08/12/20 11/19/21 08/27/20 History Exam Exam Date and Time: November 20, 2021 0847 Height,Weight and Vital Signs: Height 5 ft 8 in Weight 64.41 kg Last Vital Signs Temp 99.1 F 11/20/21 07:30 Pulse 86 11/20/21 08:31 Resp 18 11/20/21 08:31 BP 100/65 11/20/21 08:31 Pulse Ox 95 11/20/21 08:31 Pertinent Lab Results Pertinent Lab Results: Laboratory Tests 11/20/21 06:15 COVID-19 (DEXTER) Negative COVID-19 Clin Com See Note Airway Mallampati Class: II TM Dist: >3cm Neck ROM: Full Heart: RRR Lungs: CTA Assessment and Plan Final Anesthetic Review Family History of Problems with Anesthesia: No History of Problems with Anesthesia: No ASA Class: II Final Preanesthetic Review: No Changes in Pt Med Stat, Meds/Allgs Chart Reviewed, Consent Obtained/Reviewed and Anes Risks/Benef Reviewed Patient Risk: Low Procedure Risk: Low Anesthetic Plan Anesthetic Plan: GA Disposition: Standard PACU
--- NOTE | 2021-11-20 10:18 | HO.POSTANES ---
Post Anesthesia Evaluation Post Anesthesia Evaluation Vital Signs: Vital Signs Temp Pulse Resp BP Pulse Ox 11/20/21 09:01 86 16 100/68 99 11/20/21 08:46 97 16 100/65 97 11/20/21 08:31 86 18 100/65 95 11/20/21 08:16 89 19 101/59 L 95 11/20/21 08:01 102 H 20 110/64 99 11/20/21 07:45 98 19 113/68 100 11/20/21 07:40 99 16 120/69 100 11/20/21 07:35 96 16 111/68 100 11/20/21 07:30 99.1 F 87 16 127/72 99 11/20/21 07:05 98.4 F 115 H 20 118/75 100 Anesthesia: Monitored Mental Status: Awake Pain Control: Satisfactory Nausea/Vomiting: None Hydration: Adequate Anesthesia-Related Issues: No Anes. Related Issues
== END 2021-11-20 09:28 | disposition home or self-care (01) ==
PROVIDERS: PCP Internal Medicine; Visit Provider Psychiatry & Neurology Psychiatry
PROC: (CPT 90870; principal; 2021-11-20 07:30)
DX: F33.3 Major depressive disorder, recurrent, severe with psychotic symptoms (principal); F39 Unspecified mood [affective] disorder; F31.9 Bipolar disorder, unspecified; F41.1 Generalized anxiety disorder; F43.0 Acute stress reaction
CPT/HCPCS: 87635; 90870; J0330; J1885; J2405

== ENCOUNTER → 2021-12-03 14:10 | Outpatient (REF) | payer OTHER, SELFPAY ==
--- NOTE | 2021-12-03 | ECG_ITS ---
Test Reason : preop Blood Pressure : / mmHG Vent. Rate : 090 BPM Atrial Rate : 090 BPM P-R Int : 136 ms QRS Dur : 076 ms QT Int : 380 ms P-R-T Axes : 078 073 073 degrees QTc Int : 464 ms Normal sinus rhythm Normal ECG When compared with ECG of 02-NOV-2021 08:47, No significant change was found Referred By: Brook Malik Electronically Signed By:Arnlod Acevedo
[2021-12-03 14:33] LABS: MANUAL DIFF FLAG NO
[2021-12-03 14:43] LABS: Basophils Absolute Auto 0.1 X10*3/uL (0.0-0.2); Basophils Percent Auto 1.4 % (0-2); Eosinophils Absolute Auto 0.2 X10*3/uL (0.0-0.4); Eosinophils Percent Auto 2.1 % (0-4); Hemoglobin 12.6 g/dl (12.0-16.0); Imm Gran Abs Auto 0.02 X10*3/uL (0.00-0.03); Imm Gran Pct Auto 0.2 % (0.0-0.4); Lymphocytes Absolute Auto 2.3 X10*3/uL (1.2-4.9); Lymphocytes Percent Auto 29.2 % (20-40); Mean Corpuscular HGB Conc 33.2 g/dl (31.0-35.0); Mean Corpuscular Hemoglobin 29.4 pg (27.0-33.0); Mean Corpuscular Volume 88.6 fL (80.0-98.0); Mean Platelet Volume 9.5 fL (9.4-12.3); Monocytes Absolute Auto 0.6 X10*3/uL (0.1-1.2); Monocytes Percent Auto 7.7 % (2-11); Neutrophils Absolute Auto 4.8 x10*3/uL (2.0-8.3); Neutrophils Percent Auto 59.4 % (45-73); Platelet Count 343 X10*3/uL (160-400); Red Blood Count 4.29 X10*6/uL (4.20-5.50); Red Cell Distribution Width 12.7 % (11.0-16.0)
[2021-12-03 15:00] LABS: Appearance Urine CLEAR; Color Urine YELLOW; Glucose Urine UA NEG (NEG); Leukocyte Esterase Urine NEG (NEG); Nitrite Urine NEG (NEG); Specific Gravity - Urine 1.015 (1.005-1.025); Urine Blood 2+ (NEG); Urine Ketones NEG (NEG); Urine Protein NEG (NEG-TRACE)
[2021-12-03 15:04] LABS: Alanine Aminotransferase 12 U/L (0-31); Albumin Level 4.5 g/dL (3.5-5.0); Alkaline Phosphatase 44 U/L (39-117); Anion Gap 12 (12-20); Aspartate Amino Transferase 21 U/L (5-31); Bilirubin Direct < 0.2 mg/dL (0.0-0.5); Bilirubin Total 0.4 mg/dL (0.0-1.0); Blood Urea Nitrogen 8 mg/dL (9-16); Calcium 9.8 mg/dL (8.4-10.2); Carbon Dioxide 23 mmol/L (22-29); Chloride 109 mmol/L (96-108); Cholesterol 253 mg/dL; Estimated Glomerular Filt Rate > 60; Glucose Random 98 mg/dL (60-115); HDL Cholesterol 52 mg/dL; LDL Cholesterol Calculated 177 mg/dl; Potassium 3.6 mmol/L (3.3-5.1); Sodium 140 mmol/L (135-145); Triglycerides 124 mg/dL
[2021-12-03 15:08] LABS: Bacteria Urine TRACE /LPF; RBC Urine 0-2 /HPF (0); Squamous Epithelial Cell Urine 1+ /LPF; WBC Urine 0 /HPF (0-4)
[2021-12-03 15:25] LABS: TSH reflex Free T4 1.26 uIU/mL (0.32-4.0)
== END ==
LOC: HO.CARD 14:10
PROVIDERS: Absent Provider Psychiatry & Neurology Psychiatry; PCP Internal Medicine; Visit Provider Internal Medicine
DX: Z00.00 Encounter for general adult medical examination without abnormal findings (principal); F31.9 Bipolar disorder, unspecified; F43.10 Post-traumatic stress disorder, unspecified; F50.9 Eating disorder, unspecified; F98.8 Other specified behavioral and emotional disorders with onset usually occurring in childhood and adolescence
CPT/HCPCS: 36415; 80048; 80061; 80076; 81001; 81003; 84443; 85025; 93005

== ENCOUNTER 2021-12-21 06:06 | Day surgery (SDC) | payer OTHER, SELFPAY ==
[2021-12-21] VITALS (7 sets, daily range): BP systolic 110–121; BP diastolic 63–77; PULSE 75–92; RESP 18–23; TEMP 37.1–37.4; O2SAT 98–99; BMI 20.9
[2021-12-21 06:34] LABS: COVID-19 Test Negative (Negative)
--- NOTE | 2021-12-21 07:00 | P.CONAN_ITS ---
[facility] Active Problems Active Problems: All Active Problems (Updated 11/30/21 @ 16:55 by Tatyana Boogie CNM) Family history of breast cancer (Acute) Bipolar 1 disorder (Acute) History of HPV infection (Acute) Well woman exam with routine gynecological exam (Acute) Past Medical History Medical History Anxiety Bipolar 1 disorder Depression Deviated septum History of electroconvulsive therapy Vasovagal episode Family History Family history of problems with anesthesia: No Surgical History Surgical History History of bunionectomy History of Problems with Anesthesia: No Social History Social History Household Members: None Housing: Apartment Are you a primary rn coronary care unit to a significant other at home: No Do you presently have visiting nurse or other home services: No Patient Tobacco Use Status: Never used Tobacco Second Hand Smoke Exposure: No Advance Directives: No Advance Directives Information Provided: Yes service: No Sexual orientation: Did not discuss. Meds Allergies Allergy/AdvReac Type Severity Reaction Status Date / Time adhesive tape Allergy Unknown unknown Verified 09/09/21 06:26 [ADHESIVE TAPE] bee pollen [BEE Allergy Unknown anaphylaxis Verified 09/09/21 06:26 STINGS] Iodinated Contrast Allergy Unknown unknown Verified 09/09/21 06:26 Media [CONTRAST, IV] metaxalone [From Allergy Unknown unknown Verified 09/09/21 06:26 SKELAXIN] monocryl/vicryl Allergy Unknown unknown Verified 09/09/21 06:26 sutures morphine Allergy Unknown unknown Verified 09/09/21 06:26 [MORPHINE] moxifloxacin [From Allergy Unknown unknown Verified 09/09/21 06:26 AVELOX] orange [ORANGES] Allergy Unknown anaphylaxis Verified 09/09/21 06:26 red dye [RED DYE] Allergy Unknown unknown Verified 09/09/21 06:26 Sulfa (Sulfonamide Allergy Unknown UNKNOWN Verified 09/09/21 06:26 Antibiotics) [SULFA (SULFONAMIDE ANTIBIOTICS)] lamotrigine [From AdvReac Intermediate hx of Verified 11/18/20 15:07 LAMICTAL] yennifer on doses greater that 200 mg Adhesive Bandages Allergy Unknown Hives Uncoded 11/18/20 15:07 bees/wasps Allergy Unknown Anaphylaxis Uncoded 11/18/20 15:07 ivp contrast dye Allergy Unknown Hives Uncoded 11/18/20 15:07 lychees Allergy Unknown Hives Uncoded 11/18/20 15:07 oranges Allergy Unknown Anaphylaxis Uncoded 11/18/20 15:07 red dyes Allergy Unknown Hives Uncoded 11/18/20 15:07 Active Medications: Current Medications Lactated Ringer's (Lr) 1,000 mls @ 50 mls/hr IVCONT .Q20H [place] Home Medications Medication Instructions Recorded Confirmed Last Taken Type albuterol 90 mcg INHALATION 08/12/20 11/19/21 08/26/20 History mcg/actuation aerosol inhaler mcg cetirizine 10 mg 10 mg PO DAILY 08/12/20 11/19/21 08/28/20 History tablet (Zyrtec) clonazepam 1 mg 1 mg PO DAILY 08/12/20 11/19/21 08/26/20 History tablet 1 mg clozapine 50 mg 50 mg PO BID 08/12/20 11/19/21 08/28/20 History tablet (Clozaril) diphenhydramine 50 mg PO TID PRN 08/12/20 11/19/21 Unknown History HCl 50 mg capsule (Banophen) epinephrine 0.1 0.1 mg IM Q30M 08/12/20 11/19/21 08/26/20 History mg/mL injection PRN syringe 0.1 mg famotidine 40 mg 40 mg PO BEDTIME 08/12/20 11/19/21 08/28/20 History tablet fluticasone 100 1 inh INHALATION 08/12/20 11/19/21 08/28/20 History mcg-salmeterol 50 BID mcg/dose blistr powdr for inhalation (Advair Diskus) fluticasone 1 spray 08/12/20 11/19/21 08/28/20 History propionate 50 INTRANASAL BID mcg/actuation nasal spray,suspension ipratropium 0.5 3 ml INHALATION 08/12/20 11/19/21 08/26/20 History mg-albuterol 3 mg QID (2.5 mg base)/3 3 mL mL nebulization soln temazepam 30 mg 30 mg PO BEDTIME 08/12/20 11/19/21 08/26/20 History capsule PRN 30 mg topiramate 50 mg 50 mg PO BID 08/12/20 11/19/21 08/27/20 History tablet Exam Exam Date and Time: December 21, 2021 0700 Height,Weight and Vital Signs: Height 5 ft 8 in Weight 62.596 kg Last Vital Signs Temp 98.9 F 12/21/21 06:46 Pulse 92 12/21/21 06:46 Resp 18 12/21/21 06:46 BP 111/63 12/21/21 06:46 Pulse Ox 99 12/21/21 06:46 Pertinent Lab Results Pertinent Lab Results: Laboratory Tests 12/21/21 06:05 COVID-19 (DEXTER) Negative COVID-19 Clin Com See Note Airway Mallampati Class: II TM Dist: >3cm Neck ROM: Full Heart: rrr Lungs: cta Assessment and Plan Assessment Anesthesia Assessment: Anesthesia Plan Discussed and Chart Reviewed Final Anesthetic Review Family History of Problems with Anesthesia: No History of Problems with Anesthesia: No NPO: Yes ASA Class: III Final Preanesthetic Review: No Changes in Pt Med Stat, Meds/Allgs Chart Reviewed and Consent Obtained/Reviewed Patient Risk: Intermediate Procedure Risk: Intermediate Anesthetic Plan Anesthetic Plan: GA Disposition: Standard PACU
--- NOTE | 2021-12-21 07:00 | HO.ANESPROP2 ---
[facility] Active Problems Active Problems: All Active Problems (Updated 11/30/21 @ 16:55 by Tatyana Boogie CNM) Family history of breast cancer (Acute) Bipolar 1 disorder (Acute) History of HPV infection (Acute) Well woman exam with routine gynecological exam (Acute) Past Medical History Medical History Anxiety Bipolar 1 disorder Depression Deviated septum History of electroconvulsive therapy Vasovagal episode Family History Family history of problems with anesthesia: No Surgical History Surgical History History of bunionectomy History of Problems with Anesthesia: No Social History Social History Household Members: None Housing: Apartment Are you a primary hospice care consultant to a significant other at home: No Do you presently have visiting nurse or other home services: No Patient Tobacco Use Status: Never used Tobacco Second Hand Smoke Exposure: No Advance Directives: No Advance Directives Information Provided: Yes service: No Sexual orientation: Did not discuss. Meds Allergies Allergy/AdvReac Type Severity Reaction Status Date / Time adhesive tape [ADHESIVE TAPE] Allergy Unknown unknown Verified 09/09/21 06:26 bee pollen [BEE STINGS] Allergy Unknown anaphylaxis Verified 09/09/21 06:26 Iodinated Contrast Media Allergy Unknown unknown Verified 09/09/21 06:26 [CONTRAST, IV] metaxalone [From SKELAXIN] Allergy Unknown unknown Verified 09/09/21 06:26 monocryl/vicryl sutures Allergy Unknown unknown Verified 09/09/21 06:26 morphine [MORPHINE] Allergy Unknown unknown Verified 09/09/21 06:26 moxifloxacin [From AVELOX] Allergy Unknown unknown Verified 09/09/21 06:26 orange [ORANGES] Allergy Unknown anaphylaxis Verified 09/09/21 06:26 red dye [RED DYE] Allergy Unknown unknown Verified 09/09/21 06:26 Sulfa (Sulfonamide Allergy Unknown UNKNOWN Verified 09/09/21 06:26 Antibiotics) [SULFA (SULFONAMIDE ANTIBIOTICS)] lamotrigine [From LAMICTAL] AdvReac Intermediate hx of Verified 11/18/20 15:07 yennifer on doses greater that 200 mg Adhesive Bandages Allergy Unknown Hives Uncoded 11/18/20 15:07 bees/wasps Allergy Unknown Anaphylaxis Uncoded 11/18/20 15:07 ivp contrast dye Allergy Unknown Hives Uncoded 11/18/20 15:07 lychees Allergy Unknown Hives Uncoded 11/18/20 15:07 oranges Allergy Unknown Anaphylaxis Uncoded 11/18/20 15:07 red dyes Allergy Unknown Hives Uncoded 11/18/20 15:07 Active Medications: Current Medications Lactated Ringer's (Lr) 1,000 mls @ 50 mls/hr IVCONT .Q20H [place] Home Medications Medication Instructions Recorded Confirmed Last Taken Type albuterol 90 mcg/actuation aerosol mcg INHALATION 08/12/20 11/19/21 08/26/20 History inhaler mcg cetirizine 10 mg tablet (Zyrtec) 10 mg PO DAILY 08/12/20 11/19/21 08/28/20 History clonazepam 1 mg tablet 1 mg PO DAILY 08/12/20 11/19/21 08/26/20 History 1 mg clozapine 50 mg tablet (Clozaril) 50 mg PO BID 08/12/20 11/19/21 08/28/20 History diphenhydramine HCl 50 mg capsule 50 mg PO TID PRN 08/12/20 11/19/21 Unknown History (Banophen) epinephrine 0.1 mg/mL injection 0.1 mg IM Q30M PRN 08/12/20 11/19/21 08/26/20 History syringe 0.1 mg famotidine 40 mg tablet 40 mg PO BEDTIME 08/12/20 11/19/21 08/28/20 History fluticasone 100 mcg-salmeterol 50 1 inh INHALATION BID 08/12/20 11/19/21 08/28/20 History mcg/dose blistr powdr for inhalation (Advair Diskus) fluticasone propionate 50 1 spray INTRANASAL BID 08/12/20 11/19/21 08/28/20 History mcg/actuation nasal spray,suspension ipratropium 0.5 mg-albuterol 3 mg 3 ml INHALATION QID 08/12/20 11/19/21 08/26/20 History (2.5 mg base)/3 mL nebulization 3 mL soln temazepam 30 mg capsule 30 mg PO BEDTIME PRN 08/12/20 11/19/21 08/26/20 History 30 mg topiramate 50 mg tablet 50 mg PO BID 08/12/20 11/19/21 08/27/20 History Exam Exam Date and Time: December 21, 2021 0700 Height,Weight and Vital Signs: Height 5 ft 8 in Weight 62.596 kg Last Vital Signs Temp 98.9 F 12/21/21 06:46 Pulse 92 12/21/21 06:46 Resp 18 12/21/21 06:46 BP 111/63 12/21/21 06:46 Pulse Ox 99 12/21/21 06:46 Pertinent Lab Results Pertinent Lab Results: Laboratory Tests 12/21/21 06:05 COVID-19 (DEXTER) Negative COVID-19 Clin Com See Note Airway Mallampati Class: II TM Dist: >3cm Neck ROM: Full Heart: rrr Lungs: cta Assessment and Plan Assessment Anesthesia Assessment: Anesthesia Plan Discussed and Chart Reviewed Final Anesthetic Review Family History of Problems with Anesthesia: No History of Problems with Anesthesia: No NPO: Yes ASA Class: III Final Preanesthetic Review: No Changes in Pt Med Stat, Meds/Allgs Chart Reviewed and Consent Obtained/Reviewed Patient Risk: Intermediate Procedure Risk: Intermediate Anesthetic Plan Anesthetic Plan: GA Disposition: Standard PACU
--- NOTE | 2021-12-21 07:09 | MHC.SHP ---
Pre-Procedural Eval Section A Date of Service: 12/21/21 The patient is an INPATIENT: No Changes since office visit: Yes Changes in Medication and Yes Patient answered all questions; No Cold of Flu in the past 2 weeks and No New Medical Problems The History & Physical has been completed within 30 days and I have reviewed it.: No Section B Chief Complaint: Severe Depression Details of Present Illness: recurrent bipolar depression Relevant Social History: None Present Medications: see Short Stay Collaborative assessment Medical History: Significant History History of Previous Operations: Relevant previous surgery/procedure and date(s) (ect) Allergies: Allergies Allergy/AdvReac Type Severity Reaction Status Date / Time adhesive tape [ADHESIVE TAPE] Allergy Unknown unknown Verified 09/09/21 06:26 bee pollen [BEE STINGS] Allergy Unknown anaphylaxis Verified 09/09/21 06:26 Iodinated Contrast Media Allergy Unknown unknown Verified 09/09/21 06:26 [CONTRAST, IV] metaxalone [From SKELAXIN] Allergy Unknown unknown Verified 09/09/21 06:26 monocryl/vicryl sutures Allergy Unknown unknown Verified 09/09/21 06:26 morphine [MORPHINE] Allergy Unknown unknown Verified 09/09/21 06:26 moxifloxacin [From AVELOX] Allergy Unknown unknown Verified 09/09/21 06:26 orange [ORANGES] Allergy Unknown anaphylaxis Verified 09/09/21 06:26 red dye [RED DYE] Allergy Unknown unknown Verified 09/09/21 06:26 Sulfa (Sulfonamide Allergy Unknown UNKNOWN Verified 09/09/21 06:26 Antibiotics) [SULFA (SULFONAMIDE ANTIBIOTICS)] lamotrigine [From LAMICTAL] AdvReac Intermediate hx of Verified 11/18/20 15:07 yennifer on doses greater that 200 mg Adhesive Bandages Allergy Unknown Hives Uncoded 11/18/20 15:07 bees/wasps Allergy Unknown Anaphylaxis Uncoded 11/18/20 15:07 ivp contrast dye Allergy Unknown Hives Uncoded 11/18/20 15:07 lychees Allergy Unknown Hives Uncoded 11/18/20 15:07 oranges Allergy Unknown Anaphylaxis Uncoded 11/18/20 15:07 red dyes Allergy Unknown Hives Uncoded 11/18/20 15:07 Review of Systems Sugical H&P ROS: Negative: Cardiovascular, Respiratory and Neurological Exam Surgical H&P Exam: Normal: Heart, Normal: Lungs (clear) and Normal: Extremities Plan Diagnosis/Plan: Unchanged I have reviewed the history and physical and performed a pertinent physical examination on my patient. No changes have occurred unless specified.
--- NOTE | 2021-12-21 07:32 | HO.ECTPROC ---
ECT Procedure Note Diagnosis/Treatment Date of Service: 12/21/21 Diagnosis: Bipolar disorder Previous ECT Date: 11/20/21 Treatment: Maintenance Interval Clinical Notes: pt generally seems more stable ECT Settings Device: THYMATRON DGx Electrode Placement: Right Unilateral Program/Pulse Width: 0.25 Energy Percent: 20 Seizure Duration By EEG (in seconds): 33 Medications Administration General Anesthetic: Etomidate (16) Muscle Relaxant: Succinylcholine (100) Ancillary Medications Analgesics: Torodol - Pre ECT Anti-emetics: Zofran - Pre ECT Airway Management Airway Management: Bag Mask Ventilation Treatment Recommendations No Changes Recommended: No change Notes: may need picc line had mottling
[2021-12-21] MEDS: oxyCODONE HCl Immed Release 5 MG TABLET 10 MG PO (08:28)
[2021-12-21] MEDS: Acetaminophen 325 MG TABLET 650 MG PO (08:28)
== END 2021-12-21 09:01 | disposition home or self-care (01) ==
PROVIDERS: PCP Internal Medicine; Visit Provider Psychiatry & Neurology Psychiatry
PROC: (CPT 90870; principal; 2021-12-21 07:00)
DX: F33.3 Major depressive disorder, recurrent, severe with psychotic symptoms (principal); Z20.822 Contact with and (suspected) exposure to COVID-19; Z91.040 Latex allergy status; Z91.041 Radiographic dye allergy status; Z88.2 Allergy status to sulfonamides; Z88.8 Allergy status to other drugs, medicaments and biological substances
CPT/HCPCS: 87635; 90870; J0330; J1885; J2405

== ENCOUNTER 2022-01-29 08:08 | Day surgery (SDC) | payer OTHER, SELFPAY ==
[2022-01-29] VITALS (9 sets, daily range): BP systolic 97–123; BP diastolic 51–70; PULSE 1–101; RESP 16–27; TEMP 36.6–36.7; O2SAT 93–100; BMI 20.9
[2022-01-29 08:32] LABS: COVID-19 Test Negative (Negative); IDNOW Serial# 16C4AD1C
--- NOTE | 2022-01-29 09:28 | MHC.SHP ---
Pre-Procedural Eval Section A Date of Service: 01/29/22 The patient is an INPATIENT: No Changes since office visit: Yes Changes in Medication and Yes Patient answered all questions; No Cold of Flu in the past 2 weeks and No New Medical Problems The History & Physical has been completed within 30 days and I have reviewed it.: Yes Section B Chief Complaint: Severe Depression Details of Present Illness: has some manic sx Relevant Social History: None Present Medications: see Short Stay Collaborative assessment Medical History: Significant History (hx phys trauma asthma) Allergies: Allergies Allergy/AdvReac Type Severity Reaction Status Date / Time adhesive tape [ADHESIVE TAPE] Allergy Unknown unknown Verified 09/09/21 06:26 bee pollen [BEE STINGS] Allergy Unknown anaphylaxis Verified 09/09/21 06:26 Iodinated Contrast Media Allergy Unknown unknown Verified 09/09/21 06:26 [CONTRAST, IV] metaxalone [From SKELAXIN] Allergy Unknown unknown Verified 09/09/21 06:26 monocryl/vicryl sutures Allergy Unknown unknown Verified 09/09/21 06:26 morphine [MORPHINE] Allergy Unknown unknown Verified 09/09/21 06:26 moxifloxacin [From AVELOX] Allergy Unknown unknown Verified 09/09/21 06:26 orange [ORANGES] Allergy Unknown anaphylaxis Verified 09/09/21 06:26 red dye [RED DYE] Allergy Unknown unknown Verified 09/09/21 06:26 Sulfa (Sulfonamide Allergy Unknown UNKNOWN Verified 09/09/21 06:26 Antibiotics) [SULFA (SULFONAMIDE ANTIBIOTICS)] lamotrigine [From LAMICTAL] AdvReac Intermediate hx of Verified 11/18/20 15:07 yennifer on doses greater that 200 mg Adhesive Bandages Allergy Unknown Hives Uncoded 11/18/20 15:07 bees/wasps Allergy Unknown Anaphylaxis Uncoded 11/18/20 15:07 ivp contrast dye Allergy Unknown Hives Uncoded 11/18/20 15:07 lychees Allergy Unknown Hives Uncoded 11/18/20 15:07 oranges Allergy Unknown Anaphylaxis Uncoded 11/18/20 15:07 red dyes Allergy Unknown Hives Uncoded 11/18/20 15:07 Review of Systems Sugical H&P ROS: Negative: Constitution, Cardiovascular and Neurological and Yes, Specify: Psychiatric (yennifer) Exam Surgical H&P Exam: Normal: Heart and Normal: Lungs Plan Diagnosis/Plan: Unchanged I have reviewed the history and physical and performed a pertinent physical examination on my patient. No changes have occurred unless specified.
--- NOTE | 2022-01-29 09:46 | HO.ECTPROC ---
ECT Procedure Note Diagnosis/Treatment Date of Service: 01/29/22 Diagnosis: Bipolar disorder Previous ECT Date: 12/21/21 Treatment: Maintenance Interval Clinical Notes: some manic sx dec need for sleep ECT Settings Device: THYMATRON DGx Electrode Placement: Right Unilateral Program/Pulse Width: 0.25 Energy Percent: 20 Seizure Duration By EEG (in seconds): 63 Medications Administration General Anesthetic: Etomidate (18) Muscle Relaxant: Succinylcholine (100) Ancillary Medications Analgesics: Torodol - Pre ECT Anti-emetics: Zofran - Pre ECT Airway Management Airway Management: Bag Mask Ventilation Treatment Recommendations No Changes Recommended: No change Notes: continue maintenance tx feels helpful ongoing Pt Tolerated Procedure w/o Issue: Yes
[2022-01-29] MEDS: LORazepam 2 MG/ML VIAL 1 MG IVPUSH (10:17)
[2022-01-29] MEDS: Albuterol Sulfate (0.083%) 2.5 MG/3 ML VIAL.NEB INHALE (10:17)
[2022-01-29] MEDS: LORazepam 2 MG/ML VIAL 0.5 MG IVPUSH (10:20)
[2022-01-29] MEDS: Acetaminophen 325 MG TABLET 650 MG PO (10:39)
[2022-01-29] MEDS: oxyCODONE HCl Immed Release 5 MG TABLET 10 MG PO (10:40)
== END 2022-01-29 11:22 | disposition home or self-care (01) ==
PROVIDERS: PCP Internal Medicine; Visit Provider Psychiatry & Neurology Psychiatry
PROC: (CPT 90870; principal; 2022-01-29 09:00)
DX: F31.2 Bipolar disorder, current episode manic severe with psychotic features (principal); R06.02 Shortness of breath; Z91.040 Latex allergy status; Z91.041 Radiographic dye allergy status; Z20.822 Contact with and (suspected) exposure to COVID-19; Z88.8 Allergy status to other drugs, medicaments and biological substances; Z88.2 Allergy status to sulfonamides
CPT/HCPCS: 87635; 90870; 94640; J0330; J1885; J2060; J2405

== ENCOUNTER 2022-02-19 06:02 | Day surgery (SDC) | payer OTHER, SELFPAY ==
[2022-02-19] VITALS (8 sets, daily range): BP systolic 107–142; BP diastolic 46–75; PULSE 63–110; RESP 18–26; TEMP 36.6–37.2; O2SAT 96–98; BMI 20.5
[2022-02-19 06:45] LABS: COVID-19 Test Negative (Negative); IDNOW Serial# 16C4AD1C
--- NOTE | 2022-02-19 06:58 | P.CONAN_ITS ---
[facility] Active Problems Active Problems: All Active Problems (Updated 11/30/21 @ 16:55 by Tatyana Boogie CNM) Family history of breast cancer (Acute) Bipolar 1 disorder (Acute) History of HPV infection (Acute) Well woman exam with routine gynecological exam (Acute) Past Medical History Medical History Anxiety Bipolar 1 disorder Depression Deviated septum History of electroconvulsive therapy Vasovagal episode Family History Family history of problems with anesthesia: No Surgical History Surgical History History of bunionectomy History of Problems with Anesthesia: No Social History Social History Household Members: None Housing: Apartment Are you a primary hospice home care coordinator to a significant other at home: No Do you presently have visiting nurse or other home services: No Patient Tobacco Use Status: Never used Tobacco Second Hand Smoke Exposure: No Advance Directives: No Advance Directives Information Provided: Yes service: No Sexual orientation: Did not discuss. Meds Allergies Allergy/AdvReac Type Severity Reaction Status Date / Time adhesive tape [ADHESIVE TAPE] Allergy Unknown unknown Verified 09/09/21 06:26 bee pollen [BEE STINGS] Allergy Unknown anaphylaxis Verified 09/09/21 06:26 Iodinated Contrast Media Allergy Unknown unknown Verified 09/09/21 06:26 [CONTRAST, IV] metaxalone [From SKELAXIN] Allergy Unknown unknown Verified 09/09/21 06:26 monocryl/vicryl sutures Allergy Unknown unknown Verified 09/09/21 06:26 morphine [MORPHINE] Allergy Unknown unknown Verified 09/09/21 06:26 moxifloxacin [From AVELOX] Allergy Unknown unknown Verified 09/09/21 06:26 orange [ORANGES] Allergy Unknown anaphylaxis Verified 09/09/21 06:26 red dye [RED DYE] Allergy Unknown unknown Verified 09/09/21 06:26 Sulfa (Sulfonamide Allergy Unknown UNKNOWN Verified 09/09/21 06:26 Antibiotics) [SULFA (SULFONAMIDE ANTIBIOTICS)] lamotrigine [From LAMICTAL] AdvReac Intermediate hx of Verified 11/18/20 15:07 yennifer on doses greater that 200 mg Adhesive Bandages Allergy Unknown Hives Uncoded 11/18/20 15:07 bees/wasps Allergy Unknown Anaphylaxis Uncoded 11/18/20 15:07 ivp contrast dye Allergy Unknown Hives Uncoded 11/18/20 15:07 lychees Allergy Unknown Hives Uncoded 11/18/20 15:07 oranges Allergy Unknown Anaphylaxis Uncoded 11/18/20 15:07 red dyes Allergy Unknown Hives Uncoded 11/18/20 15:07 Active Medications: Current Medications Lactated Ringer's (Lr) 1,000 mls @ 50 mls/hr IVCONT .Q20H [place] Home Medications Medication Instructions Recorded Confirmed Last Taken Type albuterol 90 mcg/actuation aerosol mcg INHALATION 08/12/20 11/19/21 08/26/20 History inhaler mcg cetirizine 10 mg tablet (Zyrtec) 10 mg PO DAILY 08/12/20 11/19/21 08/28/20 History clonazepam 1 mg tablet 1 mg PO DAILY 08/12/20 11/19/21 08/26/20 History 1 mg clozapine 50 mg tablet (Clozaril) 50 mg PO BID 08/12/20 11/19/21 08/28/20 History diphenhydramine HCl 50 mg capsule 50 mg PO TID PRN 08/12/20 11/19/21 Unknown History (Banophen) epinephrine 0.1 mg/mL injection 0.1 mg IM Q30M PRN 08/12/20 11/19/21 08/26/20 History syringe 0.1 mg famotidine 40 mg tablet 40 mg PO BEDTIME 08/12/20 11/19/21 08/28/20 History fluticasone 100 mcg-salmeterol 50 1 inh INHALATION BID 08/12/20 11/19/21 08/28/20 History mcg/dose blistr powdr for inhalation (Advair Diskus) fluticasone propionate 50 1 spray INTRANASAL BID 08/12/20 11/19/21 08/28/20 History mcg/actuation nasal spray,suspension ipratropium 0.5 mg-albuterol 3 mg 3 ml INHALATION QID 08/12/20 11/19/21 08/26/20 History (2.5 mg base)/3 mL nebulization 3 mL soln temazepam 30 mg capsule 30 mg PO BEDTIME PRN 08/12/20 11/19/21 08/26/20 History 30 mg topiramate 50 mg tablet 50 mg PO BID 08/12/20 11/19/21 08/27/20 History Exam Exam Date and Time: February 19, 2022 0658 Height,Weight and Vital Signs: Height 5 ft 8 in Weight 61.235 kg Last Vital Signs Temp 97.8 F 02/19/22 06:34 Pulse 83 02/19/22 06:34 Resp 18 02/19/22 06:34 BP 107/49 L 02/19/22 06:34 Pulse Ox 98 02/19/22 06:34 Pertinent Lab Results Pertinent Lab Results: Laboratory Tests 02/19/22 06:13 COVID-19 (DEXTER) Negative COVID-19 Clin Com See Note Airway Mallampati Class: II TM Dist: >3cm Neck ROM: Full Heart: rrr Lungs: cta Assessment and Plan Assessment Anesthesia Assessment: Anesthesia Plan Discussed and Chart Reviewed Final Anesthetic Review Family History of Problems with Anesthesia: No History of Problems with Anesthesia: No NPO: Yes ASA Class: III Final Preanesthetic Review: No Changes in Pt Med Stat, Meds/Allgs Chart Reviewed and Consent Obtained/Reviewed Patient Risk: Intermediate Procedure Risk: Intermediate Anesthetic Plan Anesthetic Plan: GA Disposition: Standard PACU
[2022-02-19] MEDS: Lactated Ringers 1,000 ML 50 ML IVCONT (07:33)
--- NOTE | 2022-02-19 07:37 | MHC.SHP ---
Pre-Procedural Eval Section A Date of Service: 02/19/22 The patient is an INPATIENT: No Changes since office visit: Yes Cold of Flu in the past 2 weeks, Yes New Medical Problems, Yes Changes in Medication and Yes Patient answered all questions The History & Physical has been completed within 30 days and I have reviewed it.: Yes Section B Chief Complaint: depression Allergies: Allergies Allergy/AdvReac Type Severity Reaction Status Date / Time adhesive tape [ADHESIVE TAPE] Allergy Unknown unknown Verified 09/09/21 06:26 bee pollen [BEE STINGS] Allergy Unknown anaphylaxis Verified 09/09/21 06:26 Iodinated Contrast Media Allergy Unknown unknown Verified 09/09/21 06:26 [CONTRAST, IV] metaxalone [From SKELAXIN] Allergy Unknown unknown Verified 09/09/21 06:26 monocryl/vicryl sutures Allergy Unknown unknown Verified 09/09/21 06:26 morphine [MORPHINE] Allergy Unknown unknown Verified 09/09/21 06:26 moxifloxacin [From AVELOX] Allergy Unknown unknown Verified 09/09/21 06:26 orange [ORANGES] Allergy Unknown anaphylaxis Verified 09/09/21 06:26 red dye [RED DYE] Allergy Unknown unknown Verified 09/09/21 06:26 Sulfa (Sulfonamide Allergy Unknown UNKNOWN Verified 09/09/21 06:26 Antibiotics) [SULFA (SULFONAMIDE ANTIBIOTICS)] lamotrigine [From LAMICTAL] AdvReac Intermediate hx of Verified 11/18/20 15:07 yennifer on doses greater that 200 mg Adhesive Bandages Allergy Unknown Hives Uncoded 11/18/20 15:07 bees/wasps Allergy Unknown Anaphylaxis Uncoded 11/18/20 15:07 ivp contrast dye Allergy Unknown Hives Uncoded 11/18/20 15:07 lychees Allergy Unknown Hives Uncoded 11/18/20 15:07 oranges Allergy Unknown Anaphylaxis Uncoded 11/18/20 15:07 red dyes Allergy Unknown Hives Uncoded 11/18/20 15:07 Plan I have reviewed the history and physical and performed a pertinent physical examination on my patient. No changes have occurred unless specified.
--- NOTE | 2022-02-19 07:37 | HO.ECTPROC ---
ECT Procedure Note Diagnosis/Treatment Date of Service: 02/19/22 Diagnosis: Bipolar disorder Previous ECT Date: 01/29/22 Treatment: Maintenance Interval Clinical Notes: the patient denies new symptoms, still a little hypomanic ECT Settings Device: THYMATRON DGx Electrode Placement: Right Unilateral Program/Pulse Width: 0.25 Energy Percent: 20 Seizure Duration By EEG (in seconds): 81 By Motor Observation (in seconds): 0 Medications Administration General Anesthetic: Etomidate (18) Muscle Relaxant: Succinylcholine (100) Ancillary Medications Analgesics: Torodol - Pre ECT Anti-emetics: Zofran - Pre ECT Airway Management Airway Management: Bag Mask Ventilation Treatment Recommendations No Changes Recommended: No change Pt Tolerated Procedure w/o Issue: Yes
[2022-02-19] MEDS: oxyCODONE HCl Immed Release 5 MG TABLET 10 MG PO (08:48)
[2022-02-19] MEDS: Acetaminophen 325 MG TABLET 650 MG PO (08:49)
== END 2022-02-19 09:16 | disposition home or self-care (01) ==
PROVIDERS: PCP Internal Medicine; Visit Provider Psychiatry & Neurology Psychiatry
PROC: (CPT 90870; principal; 2022-02-19 07:30)
DX: F31.0 Bipolar disorder, current episode hypomanic (principal); J45.909 Unspecified asthma, uncomplicated; Z87.828 Personal history of other (healed) physical injury and trauma; Z88.8 Allergy status to other drugs, medicaments and biological substances; Z88.2 Allergy status to sulfonamides; Z91.040 Latex allergy status; Z91.041 Radiographic dye allergy status; Z20.822 Contact with and (suspected) exposure to COVID-19
CPT/HCPCS: 87635; 90870; J0330; J1885; J2405

== ENCOUNTER 2022-04-26 06:19 | Day surgery (SDC) | payer OTHER, SELFPAY ==
[2022-04-26] VITALS (8 sets, daily range): BP systolic 97–129; BP diastolic 44–77; PULSE 56–84; RESP 16–25; TEMP 36.6–37.2; O2SAT 97–100; BMI 20.9
--- NOTE | 2022-04-26 06:46 | P.CONAN_ITS ---
[facility], [facility]–1983 Active Problems Active Problems: All Active Problems (Updated 11/30/21 @ 16:55 by Tatyana Boogie CNM) Family history of breast cancer (Acute) Bipolar 1 disorder (Acute) History of HPV infection (Acute) Well woman exam with routine gynecological exam (Acute) Past Medical History Medical History Anxiety Bipolar 1 disorder Depression Deviated septum History of electroconvulsive therapy Vasovagal episode Family History Family history of problems with anesthesia: No Surgical History Surgical History History of bunionectomy History of Problems with Anesthesia: No Social History Social History Household Members: None Housing: Apartment Are you a primary customer care consultant to a significant other at home: No Do you presently have visiting nurse or other home services: No Patient Tobacco Use Status: Never used Tobacco Second Hand Smoke Exposure: No Advance Directives: No Advance Directives Information Provided: Yes service: No Sexual orientation: Did not discuss. Meds Allergies Allergy/AdvReac Type Severity Reaction Status Date / Time bee pollen [BEE STINGS] Allergy Unknown anaphylaxis Verified 09/09/21 06:26 metaxalone [From SKELAXIN] Allergy Unknown unknown Verified 09/09/21 06:26 monocryl/vicryl sutures Allergy Unknown unknown Verified 09/09/21 06:26 morphine [MORPHINE] Allergy Unknown unknown Verified 09/09/21 06:26 moxifloxacin [From AVELOX] Allergy Unknown unknown Verified 09/09/21 06:26 orange [ORANGES] Allergy Unknown anaphylaxis Verified 09/09/21 06:26 Sulfa (Sulfonamide Allergy Unknown UNKNOWN Verified 09/09/21 06:26 Antibiotics) [SULFA (SULFONAMIDE ANTIBIOTICS)] lamotrigine [From LAMICTAL] AdvReac Intermediate hx of Verified 11/18/20 15:07 yennifer on doses greater that 200 mg Adhesive Bandages Allergy Unknown Hives Uncoded 11/18/20 15:07 bees/wasps Allergy Unknown Anaphylaxis Uncoded 11/18/20 15:07 ivp contrast dye Allergy Unknown Hives Uncoded 11/18/20 15:07 lychees Allergy Unknown Hives Uncoded 11/18/20 15:07 red dyes Allergy Unknown Hives Uncoded 11/18/20 15:07 Home Medications Medication Instructions Recorded Confirmed Last Taken Type albuterol 90 mcg/actuation aerosol mcg inhalation 08/12/20 11/19/21 08/26/20 History inhaler mcg cetirizine 10 mg tablet (Zyrtec) 10 mg PO DAILY 08/12/20 11/19/21 08/28/20 History clonazepam 1 mg tablet 1 mg PO DAILY 08/12/20 11/19/21 08/26/20 History 1 mg clozapine 50 mg tablet (Clozaril) 50 mg PO BID 08/12/20 11/19/21 08/28/20 History diphenhydramine HCl 50 mg capsule 50 mg PO TID PRN Allergy Symptoms 08/12/20 11/19/21 Unknown History (Banophen) epinephrine 0.1 mg/mL injection 0.1 mg IM Q30M PRN Allergic 08/12/20 11/19/21 08/26/20 History syringe Reaction 0.1 mg famotidine 40 mg tablet 40 mg PO BEDTIME 08/12/20 11/19/21 08/28/20 History fluticasone 100 mcg-salmeterol 50 1 inh inhalation BID 08/12/20 11/19/21 08/28/20 History mcg/dose blistr powdr for inhalation (Advair Diskus) fluticasone propionate 50 1 spray intranasal BID 08/12/20 11/19/21 08/28/20 History mcg/actuation nasal spray,suspension ipratropium 0.5 mg-albuterol 3 mg 3 ml inhalation QID 08/12/20 11/19/21 08/26/20 History (2.5 mg base)/3 mL nebulization 3 mL soln temazepam 30 mg capsule 30 mg PO BEDTIME PRN Insomnia 08/12/20 11/19/21 08/26/20 History 30 mg topiramate 50 mg tablet 50 mg PO BID 08/12/20 11/19/21 08/27/20 History Exam Exam Date and Time: April 26, 2022 0646 Height,Weight and Vital Signs: Height 5 ft 8 in Weight 62.596 kg Last Vital Signs Temp 97.8 F 04/26/22 06:34 Pulse 74 04/26/22 06:34 Resp 18 06/13/22 06:34 BP 97/62 04/26/22 06:34 Pulse Ox 100 04/26/22 06:34 O2 Del Method 04/26/22 06:34 Airway Mallampati Class: II TM Dist: >3cm Neck ROM: Full Heart: rrr Lungs: cta Assessment and Plan Assessment Anesthesia Assessment: Anesthesia Plan Discussed and Chart Reviewed Final Anesthetic Review Family History of Problems with Anesthesia: No History of Problems with Anesthesia: No NPO: Yes ASA Class: III Final Preanesthetic Review: No Changes in Pt Med Stat, Meds/Allgs Chart Reviewed and Consent Obtained/Reviewed Patient Risk: Intermediate Procedure Risk: Intermediate Anesthetic Plan Anesthetic Plan: GA Disposition: Standard PACU
[2022-04-26 06:53] LABS: COVID-19 Test Negative (Negative)
--- NOTE | 2022-04-26 07:05 | MHC.SHP ---
Pre-Procedural Eval Section A Date of Service: 04/26/22 The patient is an INPATIENT: No Changes since office visit: No Cold of Flu in the past 2 weeks, No New Medical Problems, No Changes in Medication and No Patient answered all questions The History & Physical has been completed within 30 days and I have reviewed it.: Yes Section B Chief Complaint: depression Details of Present Illness: Long history of bipolar depression with partial improvement with ECT and several atypical antipsychotics Relevant Family History (Specify if Yes): No Relevant Social History: None Present Medications: see Short Stay Collaborative assessment Medical History: No relevant PMH History of Previous Operations: No relevant previous surgery Allergies: Allergies Allergy/AdvReac Type Severity Reaction Status Date / Time bee pollen [BEE STINGS] Allergy Unknown anaphylaxis Verified 09/09/21 06:26 metaxalone [From SKELAXIN] Allergy Unknown unknown Verified 09/09/21 06:26 monocryl/vicryl sutures Allergy Unknown unknown Verified 09/09/21 06:26 morphine [MORPHINE] Allergy Unknown unknown Verified 09/09/21 06:26 moxifloxacin [From AVELOX] Allergy Unknown unknown Verified 09/09/21 06:26 orange [ORANGES] Allergy Unknown anaphylaxis Verified 09/09/21 06:26 Sulfa (Sulfonamide Allergy Unknown UNKNOWN Verified 09/09/21 06:26 Antibiotics) [SULFA (SULFONAMIDE ANTIBIOTICS)] lamotrigine [From LAMICTAL] AdvReac Intermediate hx of Verified 11/18/20 15:07 yennifer on doses greater that 200 mg Adhesive Bandages Allergy Unknown Hives Uncoded 11/18/20 15:07 bees/wasps Allergy Unknown Anaphylaxis Uncoded 11/18/20 15:07 ivp contrast dye Allergy Unknown Hives Uncoded 11/18/20 15:07 lychees Allergy Unknown Hives Uncoded 11/18/20 15:07 red dyes Allergy Unknown Hives Uncoded 11/18/20 15:07 Review of Systems Sugical H&P ROS: Negative: Constitution, Cardiovascular, Respiratory, Neurological, Psychiatric, Hem-Onc, Allergic/Immunologic, Gastrointestinal, Genitourinary, Musculoskeletal, Integumentary, Endocrine and Eyes/Ears/Nose/Throat Exam Surgical H&P Exam: Normal: HEENT, Normal: Heart, Normal: Lungs, Normal: Extremities, Normal: Abdomen, Normal: Skin and Normal: Neurological Plan Diagnosis/Plan: Unchanged I have reviewed the history and physical and performed a pertinent physical examination on my patient. No changes have occurred unless specified.
--- NOTE | 2022-04-26 07:21 | HO.ECTPROC ---
ECT Procedure Note Diagnosis/Treatment Date of Service: 04/26/22 Diagnosis: Bipolar disorder Previous ECT Date: 02/19/22 Treatment: Maintenance Interval Clinical Notes: The patient reported poor sleep, chronic dysphoric with mixed symptoms. ECT Settings Device: THYMATRON DGx Electrode Placement: Right Unilateral Program/Pulse Width: 0.25 Energy Percent: 20 Seizure Duration By EEG (in seconds): 37 By Motor Observation (in seconds): 0 Medications Administration General Anesthetic: Etomidate (18) Muscle Relaxant: Succinylcholine (100) Ancillary Medications Analgesics: Torodol - Pre ECT Anti-emetics: Zofran - Pre ECT Airway Management Airway Management: Bag Mask Ventilation Treatment Recommendations No Changes Recommended: No change Pt Tolerated Procedure w/o Issue: Yes
[2022-04-26] MEDS: Acetaminophen 325 MG TABLET 650 MG PO (08:19)
[2022-04-26] MEDS: oxyCODONE HCl Immed Release 5 MG TABLET 10 MG PO (08:19)
== END 2022-04-26 08:54 | disposition home or self-care (01) ==
PROVIDERS: PCP Internal Medicine; Visit Provider Psychiatry & Neurology Psychiatry
PROC: (CPT 90870; principal; 2022-04-26 07:00)
DX: F31.89 Other bipolar disorder (principal); F34.1 Dysthymic disorder; G47.9 Sleep disorder, unspecified; Z20.822 Contact with and (suspected) exposure to COVID-19
CPT/HCPCS: 87635; 90870; J0330; J2405

== ENCOUNTER 2022-06-03 13:35 | Outpatient (REF) | payer OTHER, SELFPAY ==
--- NOTE | 2022-06-03 13:44 | ECG_ITS ---
Test Reason : Z01.810 Blood Pressure : / mmHG Vent. Rate : 106 BPM Atrial Rate : 106 BPM P-R Int : 130 ms QRS Dur : 090 ms QT Int : 360 ms P-R-T Axes : 077 065 065 degrees QTc Int : 478 ms Sinus tachycardia Otherwise normal ECG When compared with ECG of 03-DEC-2021 14:35, No significant change was found Referred By: Brook Malik Electronically Signed By:Arnold Acevedo
[2022-06-03 13:54] LABS: MANUAL DIFF FLAG NO
[2022-06-03 14:06] LABS: Basophils Absolute Auto 0.1 X10*3/uL (0.0-0.2); Basophils Percent Auto 0.8 % (0-2); Eosinophils Absolute Auto 0.1 X10*3/uL (0.0-0.4); Eosinophils Percent Auto 1.9 % (0-4); Hematocrit 37.8 % (37.0-47.0); Hemoglobin 12.4 g/dl (12.0-16.0); Imm Gran Abs Auto 0.03 X10*3/uL (0.00-0.03); Imm Gran Pct Auto 0.5 % (0.0-0.4); Lymphocytes Absolute Auto 2.3 X10*3/uL (1.2-4.9); Lymphocytes Percent Auto 34.9 % (20-40); Mean Corpuscular HGB Conc 32.8 g/dl (31.0-35.0); Mean Corpuscular Volume 88.3 fL (80.0-98.0); Mean Platelet Volume 9.5 fL (9.4-12.3); Monocytes Absolute Auto 0.5 X10*3/uL (0.1-1.2); Neutrophils Absolute Auto 3.5 x10*3/uL (2.0-8.3); Neutrophils Percent Auto 53.9 % (45-73); Platelet Count 288 X10*3/uL (160-400); Red Blood Count 4.28 X10*6/uL (4.20-5.50); Red Cell Distribution Width 12.8 % (11.0-16.0); White Blood Count 6.5 X10*3/uL (4.8-10.8)
[2022-06-03 14:32] LABS: Alanine Aminotransferase 14 U/L (0-31); Albumin Level 4.4 g/dL (3.5-5.0); Alkaline Phosphatase 48 U/L (39-117); Anion Gap 12 (12-20); Aspartate Amino Transferase 16 U/L (5-31); Bilirubin Direct < 0.2 mg/dL (0.0-0.5); Bilirubin Total 0.2 mg/dL (0.0-1.0); Blood Urea Nitrogen 11 mg/dL (9-16); Carbon Dioxide 24 mmol/L (22-29); Chloride 107 mmol/L (96-108); Estimated Glomerular Filt Rate > 60; Glucose Random 129 mg/dL (60-115); Potassium 4.1 mmol/L (3.3-5.1); Sodium 139 mmol/L (135-145); Total Protein 7.6 g/dL (6.5-8.0)
[2022-06-03 14:52] LABS: TSH reflex Free T4 1.02 uIU/mL (0.32-4.0)
[2022-06-03 14:59] LABS: Appearance Urine HAZY; Color Urine STRAW; Glucose Urine UA NEG (NEG); Leukocyte Esterase Urine NEG (NEG); Nitrite Urine NEG (NEG); Specific Gravity - Urine 1.015 (1.005-1.025); Urine Blood TRACE (NEG); Urine Ketones NEG (NEG); Urine Protein NEG (NEG-TRACE)
[2022-06-03 15:17] LABS: WBC Urine 0 /HPF (0-4)
[2022-06-03 15:18] LABS: Squamous Epithelial Cell Urine 1+ /LPF
[2022-06-03 15:21] LABS: Bacteria Urine 1+ /LPF
== END 2022-06-03 13:36 | disposition home or self-care (01) ==
LOC: HO.LAB 13:35
PROVIDERS: PCP Internal Medicine; Visit Provider Internal Medicine
DX: F31.9 Bipolar disorder, unspecified (principal); K21.9 Gastro-esophageal reflux disease without esophagitis; J45.909 Unspecified asthma, uncomplicated; F43.10 Post-traumatic stress disorder, unspecified
CPT/HCPCS: 36415; 80048; 80076; 81001; 84443; 85025; 93005

== ENCOUNTER 2022-07-07 06:05 | Day surgery (SDC) | payer OTHER, SELFPAY ==
[2022-07-07 06:38] LABS: COVID-19 Test Negative (Negative)
[2022-07-07 06:50] VITALS: BP 127/65; PULSE 98; RESP 20; TEMP 36.6; O2SAT 97; BMI 21.6
--- NOTE | 2022-07-07 07:02 | P.CONAN_ITS ---
[facility]CLUD[facility] Active Problems Active Problems: All Active Problems (Updated 11/30/21 @ 16:55 by Tatyana Boogie CNM) Family history of breast cancer (Acute) Bipolar 1 disorder (Acute) History of HPV infection (Acute) Well woman exam with routine gynecological exam (Acute) Past Medical History Medical History Anxiety Bipolar 1 disorder Depression Deviated septum History of electroconvulsive therapy Vasovagal episode Family History Family history of problems with anesthesia: No Surgical History Surgical History History of bunionectomy History of Problems with Anesthesia: No Social History Social History Household Members: None Housing: Apartment Are you a primary ostomy care nurse to a significant other at home: No Do you presently have visiting nurse or other home services: No Patient Tobacco Use Status: Never used Tobacco Second Hand Smoke Exposure: No Advance Directives: No Advance Directives Information Provided: Yes service: No Sexual orientation: Did not discuss. Meds Allergies Allergy/AdvReac Type Severity Reaction Status Date / Time bee pollen [BEE STINGS] Allergy Unknown anaphylaxis Verified 09/09/21 06:26 metaxalone [From SKELAXIN] Allergy Unknown unknown Verified 09/09/21 06:26 monocryl/vicryl sutures Allergy Unknown unknown Verified 09/09/21 06:26 morphine [MORPHINE] Allergy Unknown unknown Verified 09/09/21 06:26 moxifloxacin [From AVELOX] Allergy Unknown unknown Verified 09/09/21 06:26 orange [ORANGES] Allergy Unknown anaphylaxis Verified 09/09/21 06:26 Sulfa (Sulfonamide Allergy Unknown UNKNOWN Verified 09/09/21 06:26 Antibiotics) [SULFA (SULFONAMIDE ANTIBIOTICS)] lamotrigine [From LAMICTAL] AdvReac Intermediate hx of Verified 11/18/20 15:07 yennifer on doses greater that 200 mg Adhesive Bandages Allergy Unknown Hives Uncoded 11/18/20 15:07 bees/wasps Allergy Unknown Anaphylaxis Uncoded 11/18/20 15:07 ivp contrast dye Allergy Unknown Hives Uncoded 11/18/20 15:07 lychees Allergy Unknown Hives Uncoded 11/18/20 15:07 red dyes Allergy Unknown Hives Uncoded 11/18/20 15:07 Home Medications Medication Instructions Recorded Confirmed Last Taken Type albuterol 90 mcg/actuation aerosol mcg inhalation 08/12/20 11/19/21 08/26/20 History inhaler mcg cetirizine 10 mg tablet (Zyrtec) 10 mg PO DAILY 08/12/20 11/19/21 08/28/20 History clonazepam 1 mg tablet 1 mg PO DAILY 08/12/20 11/19/21 08/26/20 History 1 mg clozapine 50 mg tablet (Clozaril) 50 mg PO BID 08/12/20 11/19/21 08/28/20 History diphenhydramine HCl 50 mg capsule 50 mg PO TID PRN Allergy Symptoms 08/12/20 11/19/21 Unknown History (Banophen) epinephrine 0.1 mg/mL injection 0.1 mg IM Q30M PRN Allergic 08/12/20 11/19/21 08/26/20 History syringe Reaction 0.1 mg famotidine 40 mg tablet 40 mg PO BEDTIME 08/12/20 11/19/21 08/28/20 History fluticasone 100 mcg-salmeterol 50 1 inh inhalation BID 08/12/20 11/19/21 08/28/20 History mcg/dose blistr powdr for inhalation (Advair Diskus) fluticasone propionate 50 1 spray intranasal BID 08/12/20 11/19/21 08/28/20 History mcg/actuation nasal spray,suspension ipratropium 0.5 mg-albuterol 3 mg 3 ml inhalation QID 08/12/20 11/19/21 08/26/20 History (2.5 mg base)/3 mL nebulization 3 mL soln temazepam 30 mg capsule 30 mg PO BEDTIME PRN Insomnia 08/12/20 11/19/21 08/26/20 History 30 mg topiramate 50 mg tablet 50 mg PO BID 08/12/20 11/19/21 08/27/20 History Exam Exam Date and Time: July 07, [id number] Height,Weight and Vital Signs: Height 5 ft 8 in Weight 64.41 kg Last Vital Signs Temp 97.9 F 07/07/22 06:50 Pulse 98 07/07/22 06:50 Resp 20 08/24/22 06:50 BP 127/65 07/07/22 06:50 Pulse Ox 97 07/07/22 06:50 O2 Del Method 07/07/22 06:50 Pertinent Lab Results Pertinent Lab Results: Laboratory Tests 07/07/22 06:10 COVID-19 (DEXTER) Negative COVID-19 Clin Com See Note Airway Mallampati Class: II TM Dist: >3cm Neck ROM: Full Loose/Missing/Broken Teeth: No Heart: RRR Lungs: CTA Assessment and Plan Final Anesthetic Review Family History of Problems with Anesthesia: No History of Problems with Anesthesia: No NPO: Yes ASA Class: II Final Preanesthetic Review: Meds/Allgs Chart Reviewed, Consent Obtained/Reviewed and Anes Risks/Benef Reviewed Patient Risk: Low Procedure Risk: Intermediate Anesthetic Plan Anesthetic Plan: GA Disposition: Standard PACU
--- NOTE | 2022-07-07 07:16 | P.HPSUR_ITS ---
Pre-Procedural Eval Section A Date of Service: 07/07/22 The patient is an INPATIENT: No Section B Chief Complaint: depression Details of Present Illness: bipolar dx Relevant Family History (Specify if Yes): No Relevant Social History: None Present Medications: see Short Stay [facility] assessment Medical History: Significant History (asthma) History of Previous Operations: No relevant previous surgery (trauma surgery / hx ect) Allergies: Allergies Allergy/AdvReac Type Severity Reaction Status Date / Time bee pollen [BEE STINGS] Allergy Unknown anaphylaxis Verified 09/09/21 06:26 metaxalone [From SKELAXIN] Allergy Unknown unknown Verified 09/09/21 06:26 monocryl/vicryl sutures Allergy Unknown unknown Verified 09/09/21 06:26 morphine [MORPHINE] Allergy Unknown unknown Verified 09/09/21 06:26 moxifloxacin [From AVELOX] Allergy Unknown unknown Verified 09/09/21 06:26 orange [ORANGES] Allergy Unknown anaphylaxis Verified 09/09/21 06:26 Sulfa (Sulfonamide Allergy Unknown UNKNOWN Verified 09/09/21 06:26 Antibiotics) [SULFA (SULFONAMIDE ANTIBIOTICS)] lamotrigine [From LAMICTAL] AdvReac Intermediate hx of Verified 11/18/20 15:07 yennifer on doses greater that 200 mg Adhesive Bandages Allergy Unknown Hives Uncoded 11/18/20 15:07 bees/wasps Allergy Unknown Anaphylaxis Uncoded 11/18/20 15:07 ivp contrast dye Allergy Unknown Hives Uncoded 11/18/20 15:07 lychees Allergy Unknown Hives Uncoded 11/18/20 15:07 red dyes Allergy Unknown Hives Uncoded 11/18/20 15:07 Review of Systems Sugical H&P ROS: Negative: Cardiovascular and Neurological and Yes, Specify: Psychiatric (elevated) Exam Surgical H&P Exam: Normal: Heart and Normal: Lungs Plan Diagnosis/Plan: Unchanged I have reviewed the history and physical and performed a pertinent physical examination on my patient. No changes have occurred unless specified.
[2022-07-07 07:35] VITALS: BP 126/67; PULSE 88; RESP 22; TEMP 37; O2SAT 100
--- NOTE | 2022-07-07 07:39 | HO.ECTPROC ---
ECT Procedure Note Diagnosis/Treatment Date of Service: 07/07/22 Diagnosis: Bipolar disorder Treatment: Maintenance Interval Clinical Notes: pt has elevated mood state has been in school sees dr jacobs ECT Settings Device: THYMATRON DGx Electrode Placement: Right Unilateral Program/Pulse Width: 0.50 Energy Percent: 20 Seizure Duration By EEG (in seconds): 77 Medications Administration General Anesthetic: Etomidate (18) Muscle Relaxant: Succinylcholine (100) Treatment Recommendations Electrode Placement: Right Unilateral Program/Pulse Width: 0.25 Notes: schedule ect for 07/09 given elevated mood state Pt Tolerated Procedure w/o Issue: Yes
[2022-07-07 07:40] VITALS: BP 116/88; PULSE 118; RESP 12; O2SAT 97
[2022-07-07 07:45] VITALS: BP 116/75; PULSE 104; RESP 16; O2SAT 95
[2022-07-07 07:50] VITALS: BP 125/78; PULSE 103; RESP 18; O2SAT 96
[2022-07-07] MEDS: oxyCODONE HCl Immed Release 5 MG TABLET 10 MG PO (08:00)
[2022-07-07] MEDS: Acetaminophen 325 MG TABLET 650 MG PO (08:00)
[2022-07-07 08:05] VITALS: BP 113/79; PULSE 105; RESP 20; TEMP 37; O2SAT 96
== END 2022-07-07 08:26 | disposition home or self-care (01) ==
PROVIDERS: PCP Internal Medicine; Visit Provider Psychiatry & Neurology Psychiatry
PROC: (CPT 90870; principal; 2022-07-07 07:00)
DX: F31.89 Other bipolar disorder (principal); F43.10 Post-traumatic stress disorder, unspecified; Z88.2 Allergy status to sulfonamides; Z88.8 Allergy status to other drugs, medicaments and biological substances; Z91.041 Radiographic dye allergy status; J45.909 Unspecified asthma, uncomplicated
CPT/HCPCS: 87635; 90870; J0330; J2405

== ENCOUNTER 2022-07-09 06:02 | Day surgery (SDC) | payer OTHER, SELFPAY ==
[2022-07-09] VITALS (7 sets, daily range): BP systolic 92–117; BP diastolic 39–69; PULSE 74–83; RESP 14–31; TEMP 36.1–36.9; O2SAT 96–100; BMI 21.6
[2022-07-09 06:39] LABS: COVID-19 Test Negative (Negative)
--- NOTE | 2022-07-09 07:13 | MHC.SHP ---
Pre-Procedural Eval Section A Date of Service: 07/09/22 The patient is an INPATIENT: No Changes since office visit: Yes Changes in Medication and Yes Patient answered all questions; No Cold of Flu in the past 2 weeks and No New Medical Problems The History & Physical has been completed within 30 days and I have reviewed it.: Yes Section B Chief Complaint: depression Allergies: Allergies Allergy/AdvReac Type Severity Reaction Status Date / Time bee pollen [BEE STINGS] Allergy Unknown anaphylaxis Verified 09/09/21 06:26 metaxalone [From SKELAXIN] Allergy Unknown unknown Verified 09/09/21 06:26 monocryl/vicryl sutures Allergy Unknown unknown Verified 09/09/21 06:26 morphine [MORPHINE] Allergy Unknown unknown Verified 09/09/21 06:26 moxifloxacin [From AVELOX] Allergy Unknown unknown Verified 09/09/21 06:26 orange [ORANGES] Allergy Unknown anaphylaxis Verified 09/09/21 06:26 Sulfa (Sulfonamide Allergy Unknown UNKNOWN Verified 09/09/21 06:26 Antibiotics) [SULFA (SULFONAMIDE ANTIBIOTICS)] lamotrigine [From LAMICTAL] AdvReac Intermediate hx of Verified 11/18/20 15:07 yennifer on doses greater that 200 mg Adhesive Bandages Allergy Unknown Hives Uncoded 11/18/20 15:07 bees/wasps Allergy Unknown Anaphylaxis Uncoded 11/18/20 15:07 ivp contrast dye Allergy Unknown Hives Uncoded 11/18/20 15:07 lychees Allergy Unknown Hives Uncoded 11/18/20 15:07 red dyes Allergy Unknown Hives Uncoded 11/18/20 15:07 Plan I have reviewed the history and physical and performed a pertinent physical examination on my patient. No changes have occurred unless specified.
--- NOTE | 2022-07-09 08:04 | HO.ANESPROP2 ---
HPI - Anesthesia Eval Consult details Narrative: 37 yo female patient for ECT PMFSH Active Problems Active Problems: All Active Problems (Updated 11/30/21 @ 16:55 by Tatyana Boogie CNM) Family history of breast cancer (Acute) Bipolar 1 disorder (Acute) History of HPV infection (Acute) Well woman exam with routine gynecological exam (Acute) Past Medical History Medical History Anxiety Bipolar 1 disorder Depression Deviated septum History of electroconvulsive therapy Vasovagal episode Family History Family history of problems with anesthesia: No Surgical History Surgical History History of bunionectomy History of Problems with Anesthesia: No Social History Social History Household Members: None Housing: Apartment Are you a primary career services assistant to a significant other at home: No Do you presently have visiting nurse or other home services: No Patient Tobacco Use Status: Never used Tobacco Second Hand Smoke Exposure: No Are you DNR?: No Advance Directives: No Advance Directives Information Provided: Yes service: No Sexual orientation: Did not discuss. Meds Allergies Allergy/AdvReac Type Severity Reaction Status Date / Time bee pollen [BEE STINGS] Allergy Unknown anaphylaxis Verified 09/09/21 06:26 metaxalone [From SKELAXIN] Allergy Unknown unknown Verified 09/09/21 06:26 monocryl/vicryl sutures Allergy Unknown unknown Verified 09/09/21 06:26 morphine [MORPHINE] Allergy Unknown unknown Verified 09/09/21 06:26 moxifloxacin [From AVELOX] Allergy Unknown unknown Verified 09/09/21 06:26 orange [ORANGES] Allergy Unknown anaphylaxis Verified 09/09/21 06:26 Sulfa (Sulfonamide Allergy Unknown UNKNOWN Verified 09/09/21 06:26 Antibiotics) [SULFA (SULFONAMIDE ANTIBIOTICS)] lamotrigine [From LAMICTAL] AdvReac Intermediate hx of Verified 11/18/20 15:07 yennifer on doses greater that 200 mg Adhesive Bandages Allergy Unknown Hives Uncoded 11/18/20 15:07 bees/wasps Allergy Unknown Anaphylaxis Uncoded 11/18/20 15:07 ivp contrast dye Allergy Unknown Hives Uncoded 11/18/20 15:07 lychees Allergy Unknown Hives Uncoded 11/18/20 15:07 red dyes Allergy Unknown Hives Uncoded 11/18/20 15:07 Active Medications: Current Medications Acetaminophen (Acetaminophen 325 Mg Tablet) 650 mg PO ONCE PRN PRN Reason: Pain, Mild (Pain Scale 1-3) Ondansetron HCl (Ondansetron Hcl 4 Mg/2 Ml Vial) 4 mg IVPUSH ONCE PRN PRN Reason: Nausea and Vomiting Oxycodone HCl (Oxycodone Hcl Immed Release 5 Mg Tablet) 10 mg PO ONCE PRN PRN Reason: Pain, Severe (Pain Scale 7-10) Home Medications Medication Instructions Recorded Confirmed Last Taken Type albuterol 90 mcg/actuation aerosol mcg inhalation 08/12/20 11/19/21 08/26/20 History inhaler mcg cetirizine 10 mg tablet (Zyrtec) 10 mg PO DAILY 08/12/20 11/19/21 08/28/20 History clonazepam 1 mg tablet 1 mg PO DAILY 08/12/20 11/19/21 08/26/20 History 1 mg clozapine 50 mg tablet (Clozaril) 50 mg PO BID 08/12/20 11/19/21 08/28/20 History diphenhydramine HCl 50 mg capsule 50 mg PO TID PRN Allergy Symptoms 08/12/20 11/19/21 Unknown History (Banophen) epinephrine 0.1 mg/mL injection 0.1 mg IM Q30M PRN Allergic 08/12/20 11/19/21 08/26/20 History syringe Reaction 0.1 mg famotidine 40 mg tablet 40 mg PO BEDTIME 08/12/20 11/19/21 08/28/20 History fluticasone 100 mcg-salmeterol 50 1 inh inhalation BID 08/12/20 11/19/21 08/28/20 History mcg/dose blistr powdr for inhalation (Advair Diskus) fluticasone propionate 50 1 spray intranasal BID 08/12/20 11/19/21 08/28/20 History mcg/actuation nasal spray,suspension ipratropium 0.5 mg-albuterol 3 mg 3 ml inhalation QID 08/12/20 11/19/21 08/26/20 History (2.5 mg base)/3 mL nebulization 3 mL soln temazepam 30 mg capsule 30 mg PO BEDTIME PRN Insomnia 08/12/20 11/19/21 08/26/20 History 30 mg topiramate 50 mg tablet 50 mg PO BID 08/12/20 11/19/21 08/27/20 History Exam Exam Date and Time: July 09, 2022 0804 Height,Weight and Vital Signs: Height 5 ft 8 in Weight 64.41 kg Last Vital Signs Temp 97 F 07/09/22 07:46 Pulse 77 07/09/22 07:46 Resp 26 H 07/09/22 07:46 BP 117/57 L 07/09/22 07:46 Pulse Ox 99 07/09/22 07:46 O2 Del Method 07/09/22 07:46 O2 Flow Rate 2 07/09/22 07:46 Pertinent Lab Results Pertinent Lab Results: Laboratory Tests 07/09/22 06:14 COVID-19 (DEXTER) Negative COVID-19 Clin Com See Note Airway Mallampati Class: II TM Dist: >3cm Neck ROM: Full Loose/Missing/Broken Teeth: No Heart: RRR Lungs: CTAB Assessment and Plan Assessment Anesthesia Assessment: Anesthesia Plan Discussed and Chart Reviewed Final Anesthetic Review Family History of Problems with Anesthesia: No History of Problems with Anesthesia: No NPO: Yes ASA Class: II Final Preanesthetic Review: No Changes in Pt Med Stat, Meds/Allgs Chart Reviewed, Consent Obtained/Reviewed and Anes Risks/Benef Reviewed Patient Risk: Intermediate Procedure Risk: Intermediate Assessment/Block/Sedation in SS: Assess/Block/Sedation-SS Anesthetic Plan Anesthetic Plan: GA Disposition: Standard PACU
[2022-07-09] MEDS: Acetaminophen 325 MG TABLET 650 MG PO (08:08)
[2022-07-09] MEDS: oxyCODONE HCl Immed Release 5 MG TABLET 10 MG PO (08:09)
--- NOTE | 2022-07-09 08:17 | HO.ECTPROC ---
ECT Procedure Note Diagnosis/Treatment Date of Service: 07/09/22 Diagnosis: Bipolar disorder Treatment: Maintenance Interval Clinical Notes: pt has elevated mood state has been in school sees dr jacobs DOING BRIEF COURSE SEC TO ECT ECT Settings Device: THYMATRON DGx Electrode Placement: Right Unilateral Program/Pulse Width: 0.25 Energy Percent: 20 Seizure Duration By EEG (in seconds): 22 Medications Administration General Anesthetic: Etomidate (18) Muscle Relaxant: Succinylcholine (100) Ancillary Medications Anti-emetics: Zofran - Pre ECT Airway Management Airway Management: Bag Mask Ventilation Treatment Recommendations Electrode Placement: Right Unilateral Program/Pulse Width: 0.50 Notes: CONT ECT FOR [place] Pt Tolerated Procedure w/o Issue: Yes
== END 2022-07-09 08:16 | disposition home or self-care (01) ==
PROVIDERS: PCP Internal Medicine; Visit Provider Psychiatry & Neurology Psychiatry
PROC: (CPT 90870; principal; 2022-07-09 07:00)
DX: F31.2 Bipolar disorder, current episode manic severe with psychotic features (principal); Z20.822 Contact with and (suspected) exposure to COVID-19; Z88.2 Allergy status to sulfonamides; Z88.8 Allergy status to other drugs, medicaments and biological substances; Z88.1 Allergy status to other antibiotic agents; Z91.041 Radiographic dye allergy status
CPT/HCPCS: 87635; 90870; J0330; J2405

== ENCOUNTER 2022-08-25 06:01 | Day surgery (SDC) | payer OTHER, SELFPAY ==
[2022-08-25] VITALS (10 sets, daily range): BP systolic 93–130; BP diastolic 41–89; PULSE 58–91; RESP 16–22; TEMP 36.3–36.8; O2SAT 96–99; BMI 21.6
[2022-08-25 06:39] LABS: COVID-19 Test Negative (Negative)
--- NOTE | 2022-08-25 06:41 | P.CONAN_ITS ---
[facility] Active Problems Active Problems: All Active Problems (Updated 11/30/21 @ 16:55 by Tatyana Boogie CNM) Family history of breast cancer (Acute) Bipolar 1 disorder (Acute) History of HPV infection (Acute) Well woman exam with routine gynecological exam (Acute) Past Medical History Medical History Anxiety Bipolar 1 disorder Depression Deviated septum History of electroconvulsive therapy Vasovagal episode Family History Family history of problems with anesthesia: No Surgical History Surgical History History of bunionectomy History of Problems with Anesthesia: No Social History Social History Household Members: None Housing: Apartment Are you a primary career developer to a significant other at home: No Do you presently have visiting nurse or other home services: No Patient Tobacco Use Status: Never used Tobacco Second Hand Smoke Exposure: No Advance Directives: No Advance Directives Information Provided: Yes service: No Sexual orientation: Did not discuss. Meds Allergies Allergy/AdvReac Type Severity Reaction Status Date / Time bee pollen [BEE STINGS] Allergy Unknown anaphylaxis Verified 09/09/21 06:26 metaxalone [From SKELAXIN] Allergy Unknown unknown Verified 09/09/21 06:26 monocryl/vicryl sutures Allergy Unknown unknown Verified 09/09/21 06:26 morphine [MORPHINE] Allergy Unknown unknown Verified 09/09/21 06:26 moxifloxacin [From AVELOX] Allergy Unknown unknown Verified 09/09/21 06:26 orange [ORANGES] Allergy Unknown anaphylaxis Verified 09/09/21 06:26 Sulfa (Sulfonamide Allergy Unknown UNKNOWN Verified 09/09/21 06:26 Antibiotics) [SULFA (SULFONAMIDE ANTIBIOTICS)] lamotrigine [From LAMICTAL] AdvReac Intermediate hx of Verified 11/18/20 15:07 yennifer on doses greater that 200 mg Adhesive Bandages Allergy Unknown Hives Uncoded 11/18/20 15:07 bees/wasps Allergy Unknown Anaphylaxis Uncoded 11/18/20 15:07 ivp contrast dye Allergy Unknown Hives Uncoded 11/18/20 15:07 lychees Allergy Unknown Hives Uncoded 11/18/20 15:07 red dyes Allergy Unknown Hives Uncoded 11/18/20 15:07 Active Medications: Current Medications Lactated Ringer's (Lr) 1,000 mls @ 50 mls/hr IVCONT .Q20H [place] Home Medications Medication Instructions Recorded Confirmed Last Taken Type albuterol 90 mcg/actuation aerosol mcg inhalation 08/12/20 11/19/21 08/26/20 History inhaler mcg cetirizine 10 mg tablet (Zyrtec) 10 mg PO DAILY 08/12/20 11/19/21 08/28/20 History clonazepam 1 mg tablet 1 mg PO DAILY 08/12/20 11/19/21 08/26/20 History 1 mg clozapine 50 mg tablet (Clozaril) 50 mg PO BID 08/12/20 11/19/21 08/28/20 History diphenhydramine HCl 50 mg capsule 50 mg PO TID PRN Allergy Symptoms 08/12/20 11/19/21 Unknown History (Banophen) epinephrine 0.1 mg/mL injection 0.1 mg IM Q30M PRN Allergic 08/12/20 11/19/21 08/26/20 History syringe Reaction 0.1 mg famotidine 40 mg tablet 40 mg PO BEDTIME 08/12/20 11/19/21 08/28/20 History fluticasone 100 mcg-salmeterol 50 1 inh inhalation BID 08/12/20 11/19/21 08/28/20 History mcg/dose blistr powdr for inhalation (Advair Diskus) fluticasone propionate 50 1 spray intranasal BID 08/12/20 11/19/21 08/28/20 History mcg/actuation nasal spray,suspension ipratropium 0.5 mg-albuterol 3 mg 3 ml inhalation QID 08/12/20 11/19/21 08/26/20 History (2.5 mg base)/3 mL nebulization 3 mL soln temazepam 30 mg capsule 30 mg PO BEDTIME PRN Insomnia 08/12/20 11/19/21 08/26/20 History 30 mg topiramate 50 mg tablet 50 mg PO BID 08/12/20 11/19/21 08/27/20 History Exam Exam Date and Time: August 25, 2022 0641 Height,Weight and Vital Signs: Height 5 ft 8 in Weight 64.41 kg Last Vital Signs Temp 97.4 F 08/25/22 06:28 Pulse 86 08/25/22 06:28 Resp 18 08/25/22 06:28 BP 108/69 08/25/22 06:28 Pulse Ox 97 08/25/22 06:28 O2 Del Method 08/25/22 06:28 Pertinent Lab Results Pertinent Lab Results: Laboratory Tests 08/25/22 06:17 COVID-19 (DEXTER) Negative COVID-19 Clin Com See Note Airway Mallampati Class: II TM Dist: >3cm Neck ROM: Full Heart: rrr Lungs: cta Assessment and Plan Assessment Anesthesia Assessment: Anesthesia Plan Discussed and Chart Reviewed Final Anesthetic Review Family History of Problems with Anesthesia: No History of Problems with Anesthesia: No NPO: Yes ASA Class: III Final Preanesthetic Review: No Changes in Pt Med Stat, Meds/Allgs Chart Reviewed and Consent Obtained/Reviewed Patient Risk: Intermediate Procedure Risk: Intermediate Anesthetic Plan Anesthetic Plan: GA Disposition: Standard PACU
--- NOTE | 2022-08-25 07:04 | MHC.SHP ---
Pre-Procedural Eval Section A Date of Service: 08/25/22 The patient is an INPATIENT: No Changes since office visit: No Cold of Flu in the past 2 weeks, No New Medical Problems, No Changes in Medication and No Patient answered all questions The History & Physical has been completed within 30 days and I have reviewed it.: Yes Section B Chief Complaint: Major depressive disorder, recurrent, severe with Details of Present Illness: Long history of bipolar disorder, chronically dysphoric with cluster B traits Relevant Family History (Specify if Yes): Yes Relevant Social History: None Present Medications: see Short Stay Collaborative assessment Medical History: No relevant PMH History of Previous Operations: No relevant previous surgery Allergies: Allergies Allergy/AdvReac Type Severity Reaction Status Date / Time bee pollen [BEE STINGS] Allergy Unknown anaphylaxis Verified 09/09/21 06:26 metaxalone [From SKELAXIN] Allergy Unknown unknown Verified 09/09/21 06:26 monocryl/vicryl sutures Allergy Unknown unknown Verified 09/09/21 06:26 morphine [MORPHINE] Allergy Unknown unknown Verified 09/09/21 06:26 moxifloxacin [From AVELOX] Allergy Unknown unknown Verified 09/09/21 06:26 orange [ORANGES] Allergy Unknown anaphylaxis Verified 09/09/21 06:26 Sulfa (Sulfonamide Allergy Unknown UNKNOWN Verified 09/09/21 06:26 Antibiotics) [SULFA (SULFONAMIDE ANTIBIOTICS)] lamotrigine [From LAMICTAL] AdvReac Intermediate hx of Verified 11/18/20 15:07 yennifer on doses greater that 200 mg Adhesive Bandages Allergy Unknown Hives Uncoded 11/18/20 15:07 bees/wasps Allergy Unknown Anaphylaxis Uncoded 11/18/20 15:07 ivp contrast dye Allergy Unknown Hives Uncoded 11/18/20 15:07 lychees Allergy Unknown Hives Uncoded 11/18/20 15:07 red dyes Allergy Unknown Hives Uncoded 11/18/20 15:07 Review of Systems Sugical H&P ROS: Negative: Constitution, Cardiovascular, Respiratory, Neurological, Psychiatric, Hem-Onc, Allergic/Immunologic, Gastrointestinal, Genitourinary, Musculoskeletal, Integumentary, Endocrine and Eyes/Ears/Nose/Throat Exam Surgical H&P Exam: Normal: HEENT, Normal: Heart, Normal: Lungs, Normal: Extremities, Normal: Abdomen, Normal: Skin and Normal: Neurological Plan Diagnosis/Plan: Unchanged I have reviewed the history and physical and performed a pertinent physical examination on my patient. No changes have occurred unless specified.
--- NOTE | 2022-08-25 07:20 | HO.ECTPROC ---
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 No new symptoms. She stated that she did the CBC with [facility] last Tuesday. Dr. Barbosa asked to do CBC if the patient has not done it yet. ECT Settings Device: THYMATRON DGx Electrode Placement: Right Unilateral Program/Pulse Width: 0.25 Energy Percent: 20 Seizure Duration By EEG (in seconds): 68 By Motor Observation (in seconds): 0 Medications Administration General Anesthetic: Etomidate (16) Muscle Relaxant: Succinylcholine (10) Ancillary Medications Analgesics: Torodol - Pre ECT Anti-emetics: Zofran - Pre ECT Miscillaneous Medications: Propofol Airway Management Airway Management: Bag Mask Ventilation Treatment Recommendations No Changes Recommended: No change Pt Tolerated Procedure w/o Issue: Yes
[2022-08-25] MEDS: Acetaminophen 325 MG TABLET 650 MG PO (07:49)
[2022-08-25] MEDS: Lactated Ringers 1,000 ML 50 ML IVCONT (07:49)
[2022-08-25] MEDS: oxyCODONE HCl Immed Release 5 MG TABLET 10 MG PO (07:50)
[2022-08-25] MEDS: LORazepam 1 MG TABLET PO (07:52)
== END 2022-08-25 09:35 | disposition home or self-care (01) ==
PROVIDERS: PCP Internal Medicine; Visit Provider Psychiatry & Neurology Psychiatry
PROC: (CPT 90870; principal; 2022-08-25 07:30)
DX: F31.9 Bipolar disorder, unspecified (principal); F41.1 Generalized anxiety disorder; Z79.899 Other long term (current) drug therapy; Z79.51 Long term (current) use of inhaled steroids; Z88.2 Allergy status to sulfonamides; Z88.8 Allergy status to other drugs, medicaments and biological substances; Z91.041 Radiographic dye allergy status; Z20.822 Contact with and (suspected) exposure to COVID-19
CPT/HCPCS: 87635; 90870; J0330; J2405

== ENCOUNTER 2022-10-22 06:50 | Day surgery (SDC) | payer OTHER, SELFPAY ==
[2022-10-22] VITALS (8 sets, daily range): BP systolic 92–120; BP diastolic 42–65; PULSE 68–101; RESP 12–22; TEMP 36.1–37.1; O2SAT 95–98
[2022-10-22 06:42] LABS: COVID-19 Test Negative (Negative)
--- NOTE | 2022-10-22 06:45 | HO.ANESPROP2 ---
[facility] Active Problems Active Problems: All Active Problems (Updated 11/30/21 @ 16:55 by Tatyana Boogie CNM) Family history of breast cancer (Acute) Bipolar 1 disorder (Acute) History of HPV infection (Acute) Well woman exam with routine gynecological exam (Acute) Past Medical History Medical History Anxiety Bipolar 1 disorder Depression Deviated septum History of electroconvulsive therapy Vasovagal episode Family History Family history of problems with anesthesia: No Surgical History Surgical History History of bunionectomy History of Problems with Anesthesia: No Social History Social History Household Members: None Housing: Apartment Are you a primary acute care nurse to a significant other at home: No Do you presently have visiting nurse or other home services: No Patient Tobacco Use Status: Never used Tobacco Second Hand Smoke Exposure: No service: No Sexual orientation: Did not discuss. Meds Allergies Allergy/AdvReac Type Severity Reaction Status Date / Time bee pollen [BEE STINGS] Allergy Unknown anaphylaxis Verified 09/09/21 06:26 metaxalone [From SKELAXIN] Allergy Unknown unknown Verified 09/09/21 06:26 monocryl/vicryl sutures Allergy Unknown unknown Verified 09/09/21 06:26 morphine [MORPHINE] Allergy Unknown unknown Verified 09/09/21 06:26 moxifloxacin [From AVELOX] Allergy Unknown unknown Verified 09/09/21 06:26 orange [ORANGES] Allergy Unknown anaphylaxis Verified 09/09/21 06:26 Sulfa (Sulfonamide Allergy Unknown UNKNOWN Verified 09/09/21 06:26 Antibiotics) [SULFA (SULFONAMIDE ANTIBIOTICS)] lamotrigine [From LAMICTAL] AdvReac Intermediate hx of Verified 11/18/20 15:07 yennifer on doses greater that 200 mg Adhesive Bandages Allergy Unknown Hives Uncoded 11/18/20 15:07 bees/wasps Allergy Unknown Anaphylaxis Uncoded 11/18/20 15:07 ivp contrast dye Allergy Unknown Hives Uncoded 11/18/20 15:07 lychees Allergy Unknown Hives Uncoded 11/18/20 15:07 red dyes Allergy Unknown Hives Uncoded 11/18/20 15:07 Home Medications Medication Instructions Recorded Confirmed Last Taken Type albuterol 90 mcg/actuation aerosol mcg inhalation 08/12/20 11/19/21 08/26/20 History inhaler mcg cetirizine 10 mg tablet (Zyrtec) 10 mg PO DAILY 08/12/20 11/19/21 08/28/20 History clonazepam 1 mg tablet 1 mg PO DAILY 08/12/20 11/19/21 08/26/20 History 1 mg clozapine 50 mg tablet (Clozaril) 50 mg PO BID 08/12/20 11/19/21 08/28/20 History diphenhydramine HCl 50 mg capsule 50 mg PO TID PRN Allergy Symptoms 08/12/20 11/19/21 Unknown History (Banophen) epinephrine 0.1 mg/mL injection 0.1 mg IM Q30M PRN Allergic 08/12/20 11/19/21 08/26/20 History syringe Reaction 0.1 mg famotidine 40 mg tablet 40 mg PO BEDTIME 08/12/20 11/19/21 08/28/20 History fluticasone 100 mcg-salmeterol 50 1 inh inhalation BID 08/12/20 11/19/21 08/28/20 History mcg/dose blistr powdr for inhalation (Advair Diskus) fluticasone propionate 50 1 spray intranasal BID 08/12/20 11/19/21 08/28/20 History mcg/actuation nasal spray,suspension ipratropium 0.5 mg-albuterol 3 mg 3 ml inhalation QID 08/12/20 11/19/21 08/26/20 History (2.5 mg base)/3 mL nebulization 3 mL soln temazepam 30 mg capsule 30 mg PO BEDTIME PRN Insomnia 08/12/20 11/19/21 08/26/20 History 30 mg topiramate 50 mg tablet 50 mg PO BID 08/12/20 11/19/21 08/27/20 History Exam Exam Date and Time: October 22, [id number] Height,Weight and Vital Signs: Last Vital Signs Temp 97.5 F 10/22/22 06:34 Pulse 89 10/22/22 06:34 Resp 20 10/22/22 06:34 BP 113/60 10/22/22 06:34 Pulse Ox 98 10/22/22 06:34 O2 Del Method 10/22/22 06:34 Pertinent Lab Results Pertinent Lab Results: Laboratory Tests 10/22/22 06:17 COVID-19 (DEXTER) Negative COVID-19 Clin Com See Note Airway Mallampati Class: II TM Dist: >3cm Neck ROM: Full Heart: rrr Lungs: cta Assessment and Plan Assessment Anesthesia Assessment: Anesthesia Plan Discussed and Chart Reviewed Final Anesthetic Review Family History of Problems with Anesthesia: No History of Problems with Anesthesia: No NPO: Yes ASA Class: III Final Preanesthetic Review: No Changes in Pt Med Stat, Meds/Allgs Chart Reviewed and Consent Obtained/Reviewed Patient Risk: Intermediate Procedure Risk: Intermediate Anesthetic Plan Anesthetic Plan: GA Disposition: Standard PACU
--- NOTE | 2022-10-22 07:03 | MHC.SHP ---
Pre-Procedural Eval Section A Date of Service: 10/22/22 The patient is an INPATIENT: No Changes since office visit: Yes Patient answered all questions; No Cold of Flu in the past 2 weeks, No New Medical Problems and No Changes in Medication The History & Physical has been completed within 30 days and I have reviewed it.: No Section B Chief Complaint: depression Details of Present Illness: Long history of bipolar disorder, chronically dysphoric with cluster B traits now on vraylar Relevant Family History (Specify if Yes): Yes Relevant Social History: None Present Medications: see Short Stay Collaborative assessment Medical History: No relevant PMH History of Previous Operations: No relevant previous surgery Allergies: Allergies Allergy/AdvReac Type Severity Reaction Status Date / Time bee pollen [BEE STINGS] Allergy Unknown anaphylaxis Verified 09/09/21 06:26 metaxalone [From SKELAXIN] Allergy Unknown unknown Verified 09/09/21 06:26 monocryl/vicryl sutures Allergy Unknown unknown Verified 09/09/21 06:26 morphine [MORPHINE] Allergy Unknown unknown Verified 09/09/21 06:26 moxifloxacin [From AVELOX] Allergy Unknown unknown Verified 09/09/21 06:26 orange [ORANGES] Allergy Unknown anaphylaxis Verified 09/09/21 06:26 Sulfa (Sulfonamide Allergy Unknown UNKNOWN Verified 09/09/21 06:26 Antibiotics) [SULFA (SULFONAMIDE ANTIBIOTICS)] lamotrigine [From LAMICTAL] AdvReac Intermediate hx of Verified 11/18/20 15:07 yennifer on doses greater that 200 mg Adhesive Bandages Allergy Unknown Hives Uncoded 11/18/20 15:07 bees/wasps Allergy Unknown Anaphylaxis Uncoded 11/18/20 15:07 ivp contrast dye Allergy Unknown Hives Uncoded 11/18/20 15:07 lychees Allergy Unknown Hives Uncoded 11/18/20 15:07 red dyes Allergy Unknown Hives Uncoded 11/18/20 15:07 Review of Systems Sugical H&P ROS: Negative: Constitution, Cardiovascular, Respiratory, Neurological, Psychiatric, Hem-Onc, Allergic/Immunologic, Gastrointestinal, Genitourinary, Musculoskeletal, Integumentary, Endocrine and Eyes/Ears/Nose/Throat Exam Surgical H&P Exam: Normal: HEENT, Normal: Heart (rr no murmur), Normal: Lungs (clear ), Normal: Extremities, Normal: Abdomen, Normal: Skin and Normal: Neurological Plan Diagnosis/Plan: Unchanged I have reviewed the history and physical and performed a pertinent physical examination on my patient. No changes have occurred unless specified.
--- NOTE | 2022-10-22 07:29 | HO.ECTPROC ---
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
[2022-10-22] MEDS: Lactated Ringers 1,000 ML 50 ML IVCONT (07:52)
[2022-10-22] MEDS: Acetaminophen 325 MG TABLET 650 MG PO (07:54)
[2022-10-22] MEDS: oxyCODONE HCl Immed Release 5 MG TABLET 10 MG PO (07:54)
== END 2022-10-22 10:20 | disposition home or self-care (01) ==
PROVIDERS: PCP Internal Medicine; Visit Provider Psychiatry & Neurology Psychiatry
PROC: (CPT 90870; principal; 2022-10-22 08:30)
DX: F31.9 Bipolar disorder, unspecified (principal); F41.9 Anxiety disorder, unspecified; Z79.899 Other long term (current) drug therapy; Z20.822 Contact with and (suspected) exposure to COVID-19; Z88.1 Allergy status to other antibiotic agents; Z88.2 Allergy status to sulfonamides; Z88.8 Allergy status to other drugs, medicaments and biological substances; Z91.041 Radiographic dye allergy status
CPT/HCPCS: 87635; 90870; J0330; J1885; J2405

== ENCOUNTER 2022-11-19 06:01 | Day surgery (SDC) | payer OTHER, SELFPAY ==
[2022-11-19 06:25] VITALS: BP 116/65; PULSE 100; RESP 20; TEMP 37.2; O2SAT 99; BMI 21.2
[2022-11-19 06:36] LABS: UPreg QC Valid YES; Urine Pregnancy NEGATIVE (NEGATIVE)
--- NOTE | 2022-11-19 06:42 | P.CONAN_ITS ---
[facility] Active Problems Active Problems: All Active Problems (Updated 11/30/21 @ 16:55 by Tatyana Boogie CNM) Family history of breast cancer (Acute) Bipolar 1 disorder (Acute) History of HPV infection (Acute) Well woman exam with routine gynecological exam (Acute) Past Medical History Medical History Anxiety Bipolar 1 disorder Depression Deviated septum History of electroconvulsive therapy Vasovagal episode Family History Family history of problems with anesthesia: No Surgical History Surgical History History of bunionectomy History of Problems with Anesthesia: No Social History Social History Household Members: None Housing: Apartment Are you a primary care transitions manager to a significant other at home: No Do you presently have visiting nurse or other home services: No Patient Tobacco Use Status: Never used Tobacco Second Hand Smoke Exposure: No Advance Directives: No Advance Directives Information Provided: Yes service: No Sexual orientation: Did not discuss. Meds Allergies Allergy/AdvReac Type Severity Reaction Status Date / Time bee pollen [BEE STINGS] Allergy Unknown anaphylaxis Verified 09/09/21 06:26 metaxalone [From SKELAXIN] Allergy Unknown unknown Verified 09/09/21 06:26 monocryl/vicryl sutures Allergy Unknown unknown Verified 09/09/21 06:26 morphine [MORPHINE] Allergy Unknown unknown Verified 09/09/21 06:26 moxifloxacin [From AVELOX] Allergy Unknown unknown Verified 09/09/21 06:26 orange [ORANGES] Allergy Unknown anaphylaxis Verified 09/09/21 06:26 Sulfa (Sulfonamide Allergy Unknown UNKNOWN Verified 09/09/21 06:26 Antibiotics) [SULFA (SULFONAMIDE ANTIBIOTICS)] lamotrigine [From LAMICTAL] AdvReac Intermediate hx of Verified 11/18/20 15:07 yennifer on doses greater that 200 mg Adhesive Bandages Allergy Unknown Hives Uncoded 11/18/20 15:07 bees/wasps Allergy Unknown Anaphylaxis Uncoded 11/18/20 15:07 ivp contrast dye Allergy Unknown Hives Uncoded 11/18/20 15:07 lychees Allergy Unknown Hives Uncoded 11/18/20 15:07 red dyes Allergy Unknown Hives Uncoded 11/18/20 15:07 Active Medications: Current Medications Lactated Ringer's (Lr) 1,000 mls @ 50 mls/hr IVCONT .Q20H [place] Home Medications Medication Instructions Recorded Confirmed Last Taken Type albuterol 90 mcg/actuation aerosol mcg inhalation 08/12/20 11/19/21 08/26/20 History inhaler mcg cetirizine 10 mg tablet (Zyrtec) 10 mg PO DAILY 08/12/20 11/19/21 08/28/20 History clonazepam 1 mg tablet 1 mg PO DAILY 08/12/20 11/19/21 08/26/20 History 1 mg clozapine 50 mg tablet (Clozaril) 50 mg PO BID 08/12/20 11/19/21 08/28/20 History diphenhydramine HCl 50 mg capsule 50 mg PO TID PRN Allergy Symptoms 08/12/20 11/19/21 Unknown History (Banophen) epinephrine 0.1 mg/mL injection 0.1 mg IM Q30M PRN Allergic 08/12/20 11/19/21 08/26/20 History syringe Reaction 0.1 mg famotidine 40 mg tablet 40 mg PO BEDTIME 08/12/20 11/19/21 08/28/20 History fluticasone 100 mcg-salmeterol 50 1 inh inhalation BID 08/12/20 11/19/21 08/28/20 History mcg/dose blistr powdr for inhalation (Advair Diskus) fluticasone propionate 50 1 spray intranasal BID 08/12/20 11/19/21 08/28/20 History mcg/actuation nasal spray,suspension ipratropium 0.5 mg-albuterol 3 mg 3 ml inhalation QID 08/12/20 11/19/21 08/26/20 History (2.5 mg base)/3 mL nebulization 3 mL soln temazepam 30 mg capsule 30 mg PO BEDTIME PRN Insomnia 08/12/20 11/19/21 08/26/20 History 30 mg topiramate 50 mg tablet 50 mg PO BID 08/12/20 11/19/21 08/27/20 History Exam Exam Date and Time: November 19, 2022 0642 Height,Weight and Vital Signs: Height 5 ft 8 in Weight 63.503 kg Last Vital Signs Temp 99 F 11/19/22 06:25 Pulse 100 11/19/22 06:25 Resp 20 11/19/22 06:25 BP 116/65 11/19/22 06:25 Pulse Ox 99 11/19/22 06:25 O2 Del Method 11/19/22 06:25 Pertinent Lab Results Pertinent Lab Results: Laboratory Tests 11/19/22 06:20 Urine Test NEGATIVE Airway Mallampati Class: II TM Dist: >3cm Neck ROM: Full Heart: rrr Lungs: cta Assessment and Plan Assessment Anesthesia Assessment: Anesthesia Plan Discussed and Chart Reviewed Final Anesthetic Review Family History of Problems with Anesthesia: No History of Problems with Anesthesia: No NPO: Yes ASA Class: III Final Preanesthetic Review: No Changes in Pt Med Stat, Meds/Allgs Chart Reviewed and Consent Obtained/Reviewed Patient Risk: Intermediate Procedure Risk: Intermediate Anesthetic Plan Anesthetic Plan: GA Disposition: Standard PACU
[2022-11-19 06:45] LABS: COVID-19 Test Negative (Negative); IDNOW Serial# 6674DD1D
--- NOTE | 2022-11-19 07:09 | MHC.SHP ---
Pre-Procedural Eval Section A Date of Service: 11/19/22 The patient is an INPATIENT: No Changes since office visit: Yes Changes in Medication and Yes Patient answered all questions; No Cold of Flu in the past 2 weeks and No New Medical Problems The History & Physical has been completed within 30 days and I have reviewed it.: No Section B Chief Complaint: Major depressive disorder, recurrent, Details of Present Illness: Long history of bipolar disorder, chronically dysphoric with cluster B traits now on vraylar Relevant Family History (Specify if Yes): Yes Relevant Social History: None Present Medications: see Short Stay Collaborative assessment Medical History: No relevant PMH History of Previous Operations: No relevant previous surgery Allergies: Allergies Allergy/AdvReac Type Severity Reaction Status Date / Time bee pollen [BEE STINGS] Allergy Unknown anaphylaxis Verified 09/09/21 06:26 metaxalone [From SKELAXIN] Allergy Unknown unknown Verified 09/09/21 06:26 monocryl/vicryl sutures Allergy Unknown unknown Verified 09/09/21 06:26 morphine [MORPHINE] Allergy Unknown unknown Verified 09/09/21 06:26 moxifloxacin [From AVELOX] Allergy Unknown unknown Verified 09/09/21 06:26 orange [ORANGES] Allergy Unknown anaphylaxis Verified 09/09/21 06:26 Sulfa (Sulfonamide Allergy Unknown UNKNOWN Verified 09/09/21 06:26 Antibiotics) [SULFA (SULFONAMIDE ANTIBIOTICS)] lamotrigine [From LAMICTAL] AdvReac Intermediate hx of Verified 11/18/20 15:07 yennifer on doses greater that 200 mg Adhesive Bandages Allergy Unknown Hives Uncoded 11/18/20 15:07 bees/wasps Allergy Unknown Anaphylaxis Uncoded 11/18/20 15:07 ivp contrast dye Allergy Unknown Hives Uncoded 11/18/20 15:07 lychees Allergy Unknown Hives Uncoded 11/18/20 15:07 red dyes Allergy Unknown Hives Uncoded 11/18/20 15:07 Review of Systems Sugical H&P ROS: Negative: Constitution, Cardiovascular, Respiratory, Neurological, Psychiatric, Hem-Onc, Allergic/Immunologic, Gastrointestinal, Genitourinary, Musculoskeletal, Integumentary, Endocrine and Eyes/Ears/Nose/Throat Exam Surgical H&P Exam: Normal: HEENT, Normal: Heart (rr no murmur), Normal: Lungs (clear ), Normal: Extremities, Normal: Abdomen, Normal: Skin and Normal: Neurological Plan Diagnosis/Plan: Unchanged I have reviewed the history and physical and performed a pertinent physical examination on my patient. No changes have occurred unless specified. Time Spent With Patient Time: Total time managing care of this patient today ____ minutes.
[2022-11-19 07:30] VITALS: BP 122/60; PULSE 94; RESP 16; TEMP 36.5; O2SAT 97
[2022-11-19 07:35] VITALS: BP 127/65; PULSE 125; RESP 18; O2SAT 95
[2022-11-19 07:40] VITALS: BP 135/69; PULSE 119; RESP 18; O2SAT 95
[2022-11-19 07:45] VITALS: BP 114/79; PULSE 105; RESP 18; O2SAT 95
[2022-11-19] MEDS: oxyCODONE HCl Immed Release 5 MG TABLET 10 MG PO (07:49)
[2022-11-19] MEDS: Acetaminophen 325 MG TABLET 650 MG PO (07:50)
[2022-11-19 08:00] VITALS: BP 117/69; PULSE 100; RESP 18; TEMP 36.8; O2SAT 97
--- NOTE | 2022-11-19 08:09 | HO.ECTPROC ---
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 ECT Settings Device: THYMATRON DGx Electrode Placement: Right Unilateral Program/Pulse Width: 0.25 Energy Percent: 20 Seizure Duration By EEG (in seconds): 66 Medications Administration General Anesthetic: Etomidate (16) Muscle Relaxant: Succinylcholine (80) Ancillary Medications Analgesics: Torodol - Pre ECT (15) Anti-emetics: Zofran - Pre ECT (4) Miscillaneous Medications: Propofol (30) Airway Management Airway Management: Bag Mask Ventilation Treatment Recommendations No Changes Recommended: No change Notes: f/u tx in 3 weeks on tue monitor response to ect during school Pt Tolerated Procedure w/o Issue: Yes
== END 2022-11-19 08:25 ==
LOC: HO.SSS 06:01
PROVIDERS: PCP Internal Medicine; Visit Provider Psychiatry & Neurology Psychiatry
PROC: (CPT 90870; principal; 2022-11-19 07:00)
DX: F33.9 Major depressive disorder, recurrent, unspecified (principal); Z88.2 Allergy status to sulfonamides; Z88.8 Allergy status to other drugs, medicaments and biological substances; Z91.041 Radiographic dye allergy status; Z20.822 Contact with and (suspected) exposure to COVID-19
CPT/HCPCS: 81025; 87635; 90870; J0330; J1885; J2405

== ENCOUNTER → 2022-12-08 15:39 | Outpatient (REF) | payer OTHER, SELFPAY ==
--- NOTE | 2022-12-08 15:48 | ECG_ITS ---
Test Reason : preproc exam Blood Pressure : / mmHG Vent. Rate : 081 BPM Atrial Rate : 081 BPM P-R Int : 142 ms QRS Dur : 074 ms QT Int : 376 ms P-R-T Axes : 073 056 067 degrees QTc Int : 436 ms Normal sinus rhythm Normal ECG When compared with ECG of 03-JUN-2022 13:52, No significant change was found Referred By: Brook Malik Electronically Signed By:MONIQUE MARCIAL
[2022-12-08 16:46] LABS: Basophils Absolute Auto 0.1 X10*3/uL (0.0-0.2); Basophils Percent Auto 1.6 % (0-2); Eosinophils Absolute Auto 0.2 X10*3/uL (0.0-0.4); Eosinophils Percent Auto 3.1 % (0-4); Hematocrit 38.4 % (37.0-47.0); Hemoglobin 12.8 g/dl (12.0-16.0); Imm Gran Abs Auto 0.02 X10*3/uL (0.00-0.03); Imm Gran Pct Auto 0.3 % (0.0-0.4); Lymphocytes Absolute Auto 2.1 X10*3/uL (1.2-4.9); Lymphocytes Percent Auto 34.9 % (20-40); MANUAL DIFF FLAG NO; Mean Corpuscular HGB Conc 33.3 g/dl (31.0-35.0); Mean Corpuscular Hemoglobin 28.8 pg (27.0-33.0); Mean Corpuscular Volume 86.5 fL (80.0-98.0); Mean Platelet Volume 10.4 fL (9.4-12.3); Monocytes Absolute Auto 0.5 X10*3/uL (0.1-1.2); Monocytes Percent Auto 8.6 % (2-11); Neutrophils Absolute Auto 3.2 x10*3/uL (2.0-8.3); Neutrophils Percent Auto 51.5 % (45-73); Platelet Count 318 X10*3/uL (160-400); Red Blood Count 4.44 X10*6/uL (4.20-5.50); Red Cell Distribution Width 12.8 % (11.0-16.0); White Blood Count 6.1 X10*3/uL (4.8-10.8)
[2022-12-08 17:11] LABS: Alanine Aminotransferase 12 U/L (0-31); Albumin Level 4.5 g/dL (3.5-5.0); Alkaline Phosphatase 49 U/L (39-117); Anion Gap 13 (12-20); Aspartate Amino Transferase 26 U/L (5-31); Bilirubin Direct < 0.2 mg/dL (0.0-0.5); Bilirubin Total 0.3 mg/dL (0.0-1.0); Blood Urea Nitrogen 10 mg/dL (9-16); Calcium 9.7 mg/dL (8.4-10.2); Carbon Dioxide 22 mmol/L (22-29); Chloride 108 mmol/L (96-108); Estimated Glomerular Filt Rate > 60; Glucose Random 95 mg/dL (60-115); Potassium 4.8 mmol/L (3.3-5.1); Sodium 138 mmol/L (135-145)
[2022-12-08 17:26] LABS: Free T4 (Free Thyroxine) 0.92 ng/dL (0.71-1.85); Thyroid Stimulating Hormone 0.86 uIU/mL (0.32-4.0)
[2022-12-08 17:51] LABS: Appearance Urine Cloudy; Color Urine Yellow; Glucose Urine UA Negative (Negative); Leukocyte Esterase Urine Trace (Negative); Nitrite Urine Negative (Negative); Specific Gravity - Urine 1.015 (1.005-1.025); UMIC TRIGGER UA YES; Urine Blood Trace (Negative); Urine Ketones Negative (Negative); Urine Protein Negative (Neg-Trace)
[2022-12-08 17:53] LABS: Bacteria Urine 1+ (None Seen); Hyaline Casts Urine 0-2 /LPF (0-2); WBC Urine 0-5 /HPF (0-5)
[2022-12-10 06:42] LABS: HBS Num1 160.45 mIU/mL (0-7.99); ~Hepatitis B Surface Antibody REACTIVE (Nonreactive)
[2022-12-11 03:39] LABS: TS Negative Control Passed; TS Panel A 0; TS Panel B 0; TS Positive Control Passed; TSpotTB Negative (Negative)
== END ==
LOC: HO.CARD 15:39
PROVIDERS: PCP Internal Medicine; Visit Provider Internal Medicine
DX: Z01.810 Encounter for preprocedural cardiovascular examination (principal); J45.909 Unspecified asthma, uncomplicated; F43.10 Post-traumatic stress disorder, unspecified; K21.9 Gastro-esophageal reflux disease without esophagitis; F31.9 Bipolar disorder, unspecified
CPT/HCPCS: 36415; 80048; 80076; 81001; 84439; 84443; 85025; 86481; 86706; 93005

== ENCOUNTER 2022-12-10 13:18 | Day surgery (SDC) | payer OTHER, SELFPAY ==
[2022-12-10] VITALS (11 sets, daily range): BP systolic 109–130; BP diastolic 48–75; PULSE 81–108; RESP 18–23; TEMP 36.8–37.4; O2SAT 98–100; BMI 21.6
[2022-12-10 13:51] LABS: COVID-19 Test Negative (Negative); IDNOW Serial# 16C4AD1C
--- NOTE | 2022-12-10 13:58 | P.CONAN_ITS ---
HPI - Anesthesia Eval Consult details Narrative: 37 yo female patient for ECT PMFSH Active Problems Active Problems: All Active Problems (Updated 11/30/21 @ 16:55 by Tatyana Boogie CNM) Family history of breast cancer (Acute) Bipolar 1 disorder (Acute) History of HPV infection (Acute) Well woman exam with routine gynecological exam (Acute) Past Medical History Medical History Anxiety Bipolar 1 disorder Depression Deviated septum History of electroconvulsive therapy Vasovagal episode Family History Family history of problems with anesthesia: No Surgical History Surgical History History of bunionectomy History of Problems with Anesthesia: No Social History Social History Household Members: None Housing: Apartment Are you a primary animal care provider to a significant other at home: No Do you presently have visiting nurse or other home services: No Patient Tobacco Use Status: Never used Tobacco Second Hand Smoke Exposure: No Advance Directives: No Advance Directives Information Provided: Yes service: No Sexual orientation: Did not discuss. Meds Allergies Allergy/AdvReac Type Severity Reaction Status Date / Time bee pollen [BEE STINGS] Allergy Unknown anaphylaxis Verified 09/09/21 06:26 metaxalone [From SKELAXIN] Allergy Unknown unknown Verified 09/09/21 06:26 monocryl/vicryl sutures Allergy Unknown unknown Verified 09/09/21 06:26 morphine [MORPHINE] Allergy Unknown unknown Verified 09/09/21 06:26 moxifloxacin [From AVELOX] Allergy Unknown unknown Verified 09/09/21 06:26 orange [ORANGES] Allergy Unknown anaphylaxis Verified 09/09/21 06:26 Sulfa (Sulfonamide Allergy Unknown UNKNOWN Verified 09/09/21 06:26 Antibiotics) [SULFA (SULFONAMIDE ANTIBIOTICS)] lamotrigine [From LAMICTAL] AdvReac Intermediate hx of Verified 11/18/20 15:07 yennifer on doses greater that 200 mg Adhesive Bandages Allergy Unknown Hives Uncoded 11/18/20 15:07 bees/wasps Allergy Unknown Anaphylaxis Uncoded 11/18/20 15:07 ivp contrast dye Allergy Unknown Hives Uncoded 11/18/20 15:07 lychees Allergy Unknown Hives Uncoded 11/18/20 15:07 red dyes Allergy Unknown Hives Uncoded 11/18/20 15:07 Home Medications Medication Instructions Recorded Confirmed Last Taken Type albuterol 90 mcg/actuation aerosol mcg inhalation 08/12/20 11/19/21 08/26/20 History inhaler mcg cetirizine 10 mg tablet (Zyrtec) 10 mg PO DAILY 08/12/20 11/19/21 08/28/20 History clonazepam 1 mg tablet 1 mg PO DAILY 08/12/20 11/19/21 08/26/20 History 1 mg clozapine 50 mg tablet (Clozaril) 50 mg PO BID 08/12/20 11/19/21 08/28/20 History diphenhydramine HCl 50 mg capsule 50 mg PO TID PRN Allergy Symptoms 08/12/20 11/19/21 Unknown History (Banophen) epinephrine 0.1 mg/mL injection 0.1 mg IM Q30M PRN Allergic 08/12/20 11/19/21 08/26/20 History syringe Reaction 0.1 mg famotidine 40 mg tablet 40 mg PO BEDTIME 08/12/20 11/19/21 08/28/20 History fluticasone 100 mcg-salmeterol 50 1 inh inhalation BID 08/12/20 11/19/21 08/28/20 History mcg/dose blistr powdr for inhalation (Advair Diskus) fluticasone propionate 50 1 spray intranasal BID 08/12/20 11/19/21 08/28/20 History mcg/actuation nasal spray,suspension ipratropium 0.5 mg-albuterol 3 mg 3 ml inhalation QID 08/12/20 11/19/21 08/26/20 History (2.5 mg base)/3 mL nebulization 3 mL soln temazepam 30 mg capsule 30 mg PO BEDTIME PRN Insomnia 08/12/20 11/19/21 08/26/20 History 30 mg topiramate 50 mg tablet 50 mg PO BID 08/12/20 11/19/21 08/27/20 History Exam Exam Date and Time: December 10, 2022 1358 Height,Weight and Vital Signs: Height 5 ft 8 in Weight 64.41 kg Last Vital Signs Temp 98.2 F 12/10/22 13:38 Pulse 91 12/10/22 13:38 Resp 18 12/10/22 13:38 BP 112/75 12/10/22 13:38 Pulse Ox 100 12/10/22 13:38 O2 Del Method 12/10/22 13:38 Pertinent Lab Results Pertinent Lab Results: Laboratory Tests 12/10/22 13:30 COVID-19 (DEXTER) Negative COVID-19 Clin Com See Note Airway Mallampati Class: II TM Dist: >3cm Neck ROM: Full Loose/Missing/Broken Teeth: No Heart: RRR Lungs: CTAB Assessment and Plan Assessment Anesthesia Assessment: Anesthesia Plan Discussed and Chart Reviewed Final Anesthetic Review Family History of Problems with Anesthesia: No History of Problems with Anesthesia: No NPO: Yes ASA Class: II Final Preanesthetic Review: No Changes in Pt Med Stat, Meds/Allgs Chart Reviewed, Consent Obtained/Reviewed and Anes Risks/Benef Reviewed Patient Risk: Intermediate Procedure Risk: Intermediate Assessment/Block/Sedation in SS: Assess/Block/Sedation-SS Anesthetic Plan Anesthetic Plan: GA Disposition: Standard PACU
--- NOTE | 2022-12-10 14:29 | MHC.SHP ---
Pre-Procedural Eval Section A Date of Service: 12/10/22 The patient is an INPATIENT: No Changes since office visit: No Cold of Flu in the past 2 weeks, No New Medical Problems, No Changes in Medication and No Patient answered all questions The History & Physical has been completed within 30 days and I have reviewed it.: Yes Section B Chief Complaint: Major depressive disorder, recurrent, severe with Relevant Family History (Specify if Yes): No Relevant Social History: None Present Medications: see Short Stay Collaborative assessment Medical History: No relevant PMH History of Previous Operations: No relevant previous surgery Allergies: Allergies Allergy/AdvReac Type Severity Reaction Status Date / Time bee pollen [BEE STINGS] Allergy Unknown anaphylaxis Verified 09/09/21 06:26 metaxalone [From SKELAXIN] Allergy Unknown unknown Verified 09/09/21 06:26 monocryl/vicryl sutures Allergy Unknown unknown Verified 09/09/21 06:26 morphine [MORPHINE] Allergy Unknown unknown Verified 09/09/21 06:26 moxifloxacin [From AVELOX] Allergy Unknown unknown Verified 09/09/21 06:26 orange [ORANGES] Allergy Unknown anaphylaxis Verified 09/09/21 06:26 Sulfa (Sulfonamide Allergy Unknown UNKNOWN Verified 09/09/21 06:26 Antibiotics) [SULFA (SULFONAMIDE ANTIBIOTICS)] lamotrigine [From LAMICTAL] AdvReac Intermediate hx of Verified 11/18/20 15:07 yennifer on doses greater that 200 mg Adhesive Bandages Allergy Unknown Hives Uncoded 11/18/20 15:07 bees/wasps Allergy Unknown Anaphylaxis Uncoded 11/18/20 15:07 ivp contrast dye Allergy Unknown Hives Uncoded 11/18/20 15:07 lychees Allergy Unknown Hives Uncoded 11/18/20 15:07 red dyes Allergy Unknown Hives Uncoded 11/18/20 15:07 Review of Systems Sugical H&P ROS: Negative: Constitution, Cardiovascular, Respiratory, Neurological, Psychiatric, Hem-Onc, Allergic/Immunologic, Gastrointestinal, Genitourinary, Musculoskeletal, Integumentary, Endocrine and Eyes/Ears/Nose/Throat Exam Surgical H&P Exam: Normal: HEENT, Normal: Heart, Normal: Lungs, Normal: Extremities, Normal: Abdomen, Normal: Skin and Normal: Neurological Plan Diagnosis/Plan: Unchanged I have reviewed the history and physical and performed a pertinent physical examination on my patient. No changes have occurred unless specified. Time Spent With Patient Time: Total time managing care of this patient today __15__ minutes.
--- NOTE | 2022-12-10 14:46 | HO.ECTPROC ---
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 No safety concerns. Time: Total time managing care of this patient today __20__ minutes. ECT Settings Device: THYMATRON DGx Electrode Placement: Right Unilateral Program/Pulse Width: 0.25 Energy Percent: 20 Seizure Duration By EEG (in seconds): 52 Medications Administration General Anesthetic: Etomidate (16) Muscle Relaxant: Succinylcholine (80) Ancillary Medications Analgesics: Torodol - Pre ECT Anti-emetics: Zofran - Pre ECT Airway Management Airway Management: Bag Mask Ventilation Treatment Recommendations No Changes Recommended: No change Pt Tolerated Procedure w/o Issue: Yes
[2022-12-10] MEDS: Acetaminophen 325 MG TABLET 650 MG PO (15:04)
[2022-12-10] MEDS: oxyCODONE HCl Immed Release 5 MG TABLET 10 MG PO (15:04)
== END 2022-12-10 16:26 | disposition home or self-care (01) ==
PROVIDERS: PCP Internal Medicine; Visit Provider Psychiatry & Neurology Psychiatry
PROC: (CPT 90870; principal; 2022-12-10 15:00)
DX: F31.0 Bipolar disorder, current episode hypomanic (principal); J45.909 Unspecified asthma, uncomplicated; K21.9 Gastro-esophageal reflux disease without esophagitis; Z79.899 Other long term (current) drug therapy; Z88.1 Allergy status to other antibiotic agents; Z88.2 Allergy status to sulfonamides; Z88.8 Allergy status to other drugs, medicaments and biological substances; Z91.040 Latex allergy status; Z91.041 Radiographic dye allergy status; Z20.822 Contact with and (suspected) exposure to COVID-19
CPT/HCPCS: 87635; 90870; J0330; J1885; J2405

== ENCOUNTER 2023-01-07 06:03 | Day surgery (SDC) | payer OTHER, SELFPAY ==
[2023-01-07] VITALS (9 sets, daily range): BP systolic 112–130; BP diastolic 64–82; PULSE 89–123; RESP 15–27; TEMP 36.3–37.3; O2SAT 98–100; BMI 19.3
[2023-01-07 06:35] LABS: COVID-19 Test Negative (Negative); IDNOW Serial# 9DB6401D
--- NOTE | 2023-01-07 07:09 | P.HPSUR_ITS ---
Pre-Procedural Eval Section A Date of Service: 01/07/23 The patient is an INPATIENT: No Changes since office visit: Yes Changes in Medication and Yes Patient answered all questions; No Cold of Flu in the past 2 weeks and No New Medical Problems The History & Physical has been completed within 30 days and I have reviewed it.: Yes Section B Chief Complaint: depression Relevant Family History (Specify if Yes): No Relevant Social History: None Present Medications: see Short Stay Collaborative assessment Medical History: No relevant PMH History of Previous Operations: No relevant previous surgery (maintenance ect) Allergies: Allergies Allergy/AdvReac Type Severity Reaction Status Date / Time Iodinated Contrast Media Allergy Severe Hives Verified 12/16/22 13:54 [Contrast Dye] bee pollen [BEE STINGS] Allergy Unknown anaphylaxis Verified 09/09/21 06:26 metaxalone [From Skelaxin] Allergy Unknown Unknown Verified 12/16/22 13:54 monocryl/vicryl sutures Allergy Unknown unknown Verified 09/09/21 06:26 morphine [MORPHINE] Allergy Unknown unknown Verified 09/09/21 06:26 moxifloxacin [From Avelox] Allergy Unknown Unknown Verified 12/16/22 13:54 orange [ORANGES] Allergy Unknown anaphylaxis Verified 09/09/21 06:26 red dye Allergy Unknown Hives Verified 12/16/22 13:54 Sulfa (Sulfonamide Allergy Unknown UNKNOWN Verified 09/09/21 06:26 Antibiotics) [SULFA (SULFONAMIDE ANTIBIOTICS)] venom-wasp Allergy Unknown Anaphylaxis Verified 12/16/22 13:54 lamotrigine [From Lamictal] AdvReac Intermediate hx of Verified 12/16/22 13:54 yennifer on doses greater that 200 mg Adhesive Bandages Allergy Unknown Hives Uncoded 11/18/20 15:07 lychees Allergy Unknown Hives Uncoded 11/18/20 15:07 Review of Systems Sugical H&P ROS: Negative: Constitution, Cardiovascular, Respiratory, Neurological, Psychiatric, Hem-Onc, Allergic/Immunologic, Gastrointestinal, Genitourinary, Musculoskeletal, Integumentary, Endocrine and Eyes/Ears/Nose/ Throat Exam Surgical H&P Exam: Normal: HEENT, Normal: Heart (tachycardic ), Normal: Lungs (clear), Normal: Extremities, Normal: Abdomen, Normal: Skin and Normal: Neurological Plan Diagnosis/Plan: Unchanged I have reviewed the history and physical and performed a pertinent physical examination on my patient. No changes have occurred unless specified. Time Spent With Patient Time: Total time managing care of this patient today ____ minutes.
--- NOTE | 2023-01-07 07:12 | P.CONAN_ITS ---
[facility] Active Problems Active Problems: All Active Problems (Updated 11/30/21 @ 16:55 by Tatyana Boogie CNM) Family history of breast cancer (Acute) Bipolar 1 disorder (Acute) History of HPV infection (Acute) Well woman exam with routine gynecological exam (Acute) Past Medical History Medical History Anxiety Bipolar 1 disorder Depression Deviated septum History of electroconvulsive therapy Vasovagal episode Family History Family history of problems with anesthesia: No Surgical History Surgical History History of bunionectomy History of Problems with Anesthesia: No Social History Social History Household Members: None Housing: Apartment Are you a primary adult daycare coordinator to a significant other at home: No Do you presently have visiting nurse or other home services: No Patient Tobacco Use Status: Never used Tobacco Second Hand Smoke Exposure: No Advance Directives: No Advance Directives Information Provided: Yes service: No Sexual orientation: Did not discuss. Meds Allergies Allergy/AdvReac Type Severity Reaction Status Date / Time Iodinated Contrast Media Allergy Severe Hives Verified 12/16/22 13:54 [Contrast Dye] bee pollen [BEE STINGS] Allergy Unknown anaphylaxis Verified 09/09/21 06:26 metaxalone [From Skelaxin] Allergy Unknown Unknown Verified 12/16/22 13:54 monocryl/vicryl sutures Allergy Unknown unknown Verified 09/09/21 06:26 morphine [MORPHINE] Allergy Unknown unknown Verified 09/09/21 06:26 moxifloxacin [From Avelox] Allergy Unknown Unknown Verified 12/16/22 13:54 orange [ORANGES] Allergy Unknown anaphylaxis Verified 09/09/21 06:26 red dye Allergy Unknown Hives Verified 12/16/22 13:54 Sulfa (Sulfonamide Allergy Unknown UNKNOWN Verified 09/09/21 06:26 Antibiotics) [SULFA (SULFONAMIDE ANTIBIOTICS)] venom-wasp Allergy Unknown Anaphylaxis Verified 12/16/22 13:54 lamotrigine [From Lamictal] AdvReac Intermediate hx of Verified 12/16/22 13:54 yennifer on doses greater that 200 mg Adhesive Bandages Allergy Unknown Hives Uncoded 11/18/20 15:07 lychees Allergy Unknown Hives Uncoded 11/18/20 15:07 Home Medications Medication Instructions Recorded Confirmed Last Taken Type albuterol 90 mcg/actuation aerosol mcg inhalation 08/12/20 11/19/21 08/26/20 History inhaler mcg cetirizine 10 mg tablet (Zyrtec) 10 mg PO DAILY 08/12/20 11/19/21 08/28/20 History clonazepam 1 mg tablet 1 mg PO DAILY 08/12/20 11/19/21 08/26/20 History 1 mg clozapine 50 mg tablet (Clozaril) 50 mg PO BID 08/12/20 11/19/21 08/28/20 History diphenhydramine HCl 50 mg capsule 50 mg PO TID PRN Allergy Symptoms 08/12/20 11/19/21 Unknown History (Banophen) epinephrine 0.1 mg/mL injection 0.1 mg IM Q30M PRN Allergic 08/12/20 11/19/21 08/26/20 History syringe Reaction 0.1 mg famotidine 40 mg tablet 40 mg PO BEDTIME 08/12/20 11/19/21 08/28/20 History fluticasone 100 mcg-salmeterol 50 1 inh inhalation BID 08/12/20 11/19/21 08/28/20 History mcg/dose blistr powdr for inhalation (Advair Diskus) fluticasone propionate 50 1 spray intranasal BID 08/12/20 11/19/21 08/28/20 History mcg/actuation nasal spray,suspension ipratropium 0.5 mg-albuterol 3 mg 3 ml inhalation QID 08/12/20 11/19/21 08/26/20 History (2.5 mg base)/3 mL nebulization 3 mL soln temazepam 30 mg capsule 30 mg PO BEDTIME PRN Insomnia 08/12/20 11/19/21 08/26/20 History 30 mg topiramate 50 mg tablet 50 mg PO BID 08/12/20 11/19/21 08/27/20 History Exam Exam Date and Time: January 07, [id number] Height,Weight and Vital Signs: Height 5 ft 8 in Weight 57.606 kg Last Vital Signs Temp 98.5 F 01/07/23 06:31 Pulse 110 H 01/07/23 06:31 Resp 22 H 01/07/23 06:31 BP 114/64 01/07/23 06:31 Pulse Ox 100 01/07/23 06:31 O2 Del Method 01/07/23 06:31 Pertinent Lab Results Pertinent Lab Results: Laboratory Tests 01/07/23 06:13 COVID-19 (DEXTER) Negative COVID-19 Clin Com See Note Airway Mallampati Class: II TM Dist: >3cm Neck ROM: Full Loose/Missing/Broken Teeth: No Heart: RRR Lungs: CTA Assessment and Plan Assessment Anesthesia Assessment: Anesthesia Plan Discussed and Chart Reviewed Final Anesthetic Review Family History of Problems with Anesthesia: No History of Problems with Anesthesia: No NPO: Yes ASA Class: II Final Preanesthetic Review: Meds/Allgs Chart Reviewed, Consent Obtained/Reviewed, Anes Risks/Benef Reviewed and DNR Form (If Appl.) Patient Risk: Low Procedure Risk: Intermediate Anesthetic Plan Anesthetic Plan: GA Disposition: Standard PACU
--- NOTE | 2023-01-07 07:25 | HO.ECTPROC ---
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 ECT Settings Device: THYMATRON DGx Electrode Placement: Right Unilateral Program/Pulse Width: 0.25 Energy Percent: 20 Seizure Duration By EEG (in seconds): 56 Medications Administration General Anesthetic: Etomidate (16) Muscle Relaxant: Succinylcholine (80) Ancillary Medications Analgesics: Torodol - Pre ECT Anti-emetics: Zofran - Pre ECT Miscillaneous Medications: Midazolam Airway Management Airway Management: Bag Mask Ventilation Treatment Recommendations No Changes Recommended: No change Notes: Needed an updraft post for bronchospasm patient try to use inhaler pre treatment next time follow-up 3-4 weeks
[2023-01-07] MEDS: oxyCODONE HCl Immed Release 5 MG TABLET 10 MG PO (08:01)
[2023-01-07] MEDS: Acetaminophen 325 MG TABLET 650 MG PO (08:01)
[2023-01-07] MEDS: Albuterol Sulfate (0.083%) 2.5 MG/3 ML VIAL.NEB INHALE (08:06)
== END 2023-01-07 08:52 | disposition home or self-care (01) ==
PROVIDERS: PCP Internal Medicine; Visit Provider Psychiatry & Neurology Psychiatry
PROC: (CPT 90870; principal; 2023-01-07 07:30)
DX: F31.9 Bipolar disorder, unspecified (principal); Z85.3 Personal history of malignant neoplasm of breast; Z79.51 Long term (current) use of inhaled steroids; Z79.899 Other long term (current) drug therapy; Z88.1 Allergy status to other antibiotic agents; Z88.2 Allergy status to sulfonamides; Z88.8 Allergy status to other drugs, medicaments and biological substances; Z91.041 Radiographic dye allergy status
CPT/HCPCS: 87635; 90870; J0330; J1885; J2250; J2405

== ENCOUNTER 2023-02-09 14:11 | Outpatient (REF) | payer OTHER, SELFPAY ==
[2023-02-10 06:31] LABS: CT PCR NOT DETECTED (Not Detect.); NG PCR NOT DETECTED (Not Detect.)
[2023-02-10 09:17] LABS: BV Int Neg Control Negative (Negative); BV Int Pos Control Positive (Positive)
[2023-02-15 04:08] LABS: HPV mRNA E6/E7 rflx Not Detected (Not Detected)
== END 2023-02-09 14:12 | disposition home or self-care (01) ==
LOC: HO.LNP 14:11
PROVIDERS: PCP Nurse Practitioner Adult Health; Visit Provider Advanced Practice Midwife
DX: Z01.419 Encounter for gynecological examination (general) (routine) without abnormal findings (principal); Z11.51 Encounter for screening for human papillomavirus (HPV); Z86.19 Personal history of other infectious and parasitic diseases; Z20.2 Contact with and (suspected) exposure to infections with a predominantly sexual mode of transmission
CPT/HCPCS: 0353U; 87480; 87510; 87624; 87660; 88142

== ENCOUNTER 2023-02-11 06:03 | Day surgery (SDC) | payer OTHER, SELFPAY ==
[2023-02-11] VITALS (8 sets, daily range): BP systolic 118–128; BP diastolic 72–83; PULSE 85–114; RESP 20–25; TEMP 36.6; O2SAT 99–100; BMI 19.9
[2023-02-11 06:38] LABS: UPreg QC Valid YES; Urine Pregnancy NEGATIVE (NEGATIVE)
[2023-02-11 06:44] LABS: COVID-19 Test Negative (Negative); IDNOW Serial# 6674DD1D
[2023-02-11] MEDS: Lactated Ringers 1,000 ML 50 ML IVCONT (07:06)
--- NOTE | 2023-02-11 07:06 | P.CONAN_ITS ---
[facility] Active Problems Active Problems: All Active Problems (Updated 02/09/23 @ 14:28 by TISH Grissom) Family history of breast cancer (Acute) Bipolar 1 disorder (Acute) History of HPV infection (Acute) Well woman exam with routine gynecological exam (Acute) Past Medical History Medical History (Updated 02/09/23 @ 14:28 by TISH Grissom) ADHD Anxiety Asthma Bipolar 1 disorder Depression Deviated septum GERD (gastroesophageal reflux disease) History of electroconvulsive therapy PTSD (post-traumatic stress disorder) Vasovagal episode Family History Family History (Updated 02/09/23 @ 14:38 by TISH Grissom) Maternal Aunt Breast cancer Maternal Grandmother Breast cancer Paternal Aunt Breast cancer Family history of problems with anesthesia: No Surgical History Surgical History History of bunionectomy History of Problems with Anesthesia: No Social History Social History Household Members: None Housing: Apartment Are you a primary customer care team coach to a significant other at home: No Do you presently have visiting nurse or other home services: No Patient Tobacco Use Status: Never used Tobacco Second Hand Smoke Exposure: No Advance Directives: No Advance Directives Information Provided: Yes service: No Sexual orientation: Did not discuss. Meds Allergies Allergy/AdvReac Type Severity Reaction Status Date / Time Iodinated Contrast Media Allergy Severe Hives Verified 02/11/23 07:02 [Contrast Dye] bee pollen [BEE STINGS] Allergy Unknown anaphylaxis Verified 02/11/23 07:02 metaxalone [From Skelaxin] Allergy Unknown Unknown Verified 02/11/23 07:02 monocryl/vicryl sutures Allergy Unknown unknown Verified 02/11/23 07:02 morphine [MORPHINE] Allergy Unknown unknown Verified 02/11/23 07:02 moxifloxacin [From Avelox] Allergy Unknown Unknown Verified 02/11/23 07:02 orange [ORANGES] Allergy Unknown anaphylaxis Verified 02/11/23 07:02 red dye Allergy Unknown Hives Verified 02/11/23 07:02 Sulfa (Sulfonamide Allergy Unknown UNKNOWN Verified 02/11/23 07:02 Antibiotics) [SULFA (SULFONAMIDE ANTIBIOTICS)] venom-wasp Allergy Unknown Anaphylaxis Verified 02/11/23 07:02 lamotrigine [From Lamictal] AdvReac Intermediate hx of Verified 02/11/23 07:02 yennifer on doses greater that 200 mg Adhesive Bandages Allergy Unknown Hives Uncoded 02/11/23 07:02 lychees Allergy Unknown Hives Uncoded 02/11/23 07:02 Active Medications: Current Medications Acetaminophen (Acetaminophen 325 Mg Tablet) 650 mg PO ONCE PRN PRN Reason: Pain, Mild (Pain Scale 1-3) Lactated Ringer's (Lr) 1,000 mls @ 50 mls/hr IVCONT .Q20H [place] Oxycodone HCl (Oxycodone Hcl Immed Release 5 Mg Tablet) 10 mg PO ONCE PRN PRN Reason: Pain, Severe (Pain Scale 7-10) Home Medications Medication Instructions Recorded Confirmed Last Taken Type albuterol 90 mcg/actuation aerosol mcg inhalation 08/12/20 02/09/23 08/26/20 History inhaler mcg cetirizine 10 mg tablet (Zyrtec) 10 mg PO DAILY 08/12/20 02/09/23 08/28/20 History clonazepam 1 mg tablet 1 mg PO DAILY 08/12/20 02/09/23 08/26/20 History 1 mg clozapine 50 mg tablet (Clozaril) 50 mg PO BID 08/12/20 02/09/23 08/28/20 History diphenhydramine HCl 50 mg capsule 50 mg PO TID PRN Allergy Symptoms 08/12/20 02/09/23 Unknown History (Banophen) epinephrine 0.1 mg/mL injection 0.1 mg IM Q30M PRN Allergic 08/12/20 02/09/23 08/26/20 History syringe Reaction 0.1 mg famotidine 40 mg tablet 40 mg PO BEDTIME 08/12/20 02/09/23 08/28/20 History fluticasone 100 mcg-salmeterol 50 1 inh inhalation BID 08/12/20 02/09/23 08/28/20 History mcg/dose blistr powdr for inhalation (Advair Diskus) fluticasone propionate 50 1 spray intranasal BID 08/12/20 02/09/23 08/28/20 History mcg/actuation nasal spray,suspension ipratropium 0.5 mg-albuterol 3 mg 3 ml inhalation QID 08/12/20 02/09/23 08/26/20 History (2.5 mg base)/3 mL nebulization 3 mL soln temazepam 30 mg capsule 30 mg PO BEDTIME PRN Insomnia 08/12/20 02/09/23 08/26/20 History 30 mg azelastine 137 mcg (0.1 %) nasal 2 spray intranasal BID 02/09/23 02/09/23 Unknown History spray aerosol cariprazine 6 mg capsule (Vraylar) 6 mg PO DAILY 02/09/23 02/09/23 Unknown History dextroamphetamine-amphetamine ER 30 mg PO DAILY 02/09/23 02/09/23 Unknown History 30 mg 24hr capsule,extend release (Adderall XR) hydroxyzine pamoate 50 mg capsule 50 mg PO TID 02/09/23 02/09/23 Unknown History (Vistaril) ipratropium bromide 21 mcg (0.03 2 spray intranasal BID 02/09/23 02/09/23 Unknown History %) nasal spray metoprolol tartrate 25 mg tablet 25 mg PO DAILY 02/09/23 02/09/23 Unknown History ondansetron HCl 8 mg tablet 8 mg PO Q8H 02/09/23 02/09/23 Unknown History trazodone 150 mg tablet 150 mg PO BEDTIME PRN 02/09/23 02/09/23 Unknown History Exam Exam Date and Time: February 11, 2023 0706 Height,Weight and Vital Signs: Height 5 ft 8 in Weight 59.421 kg Last Vital Signs Temp 97.9 F 02/11/23 06:41 Pulse 112 H 02/11/23 06:41 Resp 20 02/11/23 06:41 BP 120/75 02/11/23 06:41 Pulse Ox 100 02/11/23 06:41 O2 Del Method Room Air 02/11/23 06:41 Pertinent Lab Results Pertinent Lab Results: Laboratory Tests 02/11/23 02/11/23 06:18 06:24 Urine Test NEGATIVE COVID-19 (DEXTER) Negative COVID-19 Clin Com See Note Airway Mallampati Class: II TM Dist: >3cm Neck ROM: Full Heart: rrr Lungs: cta Assessment and Plan Assessment Anesthesia Assessment: Anesthesia Plan Discussed and Chart Reviewed Final Anesthetic Review Family History of Problems with Anesthesia: No History of Problems with Anesthesia: No NPO: Yes ASA Class: III Final Preanesthetic Review: No Changes in Pt Med Stat, Meds/Allgs Chart Reviewed and Consent Obtained/Reviewed Patient Risk: Intermediate Procedure Risk: Intermediate Anesthetic Plan Anesthetic Plan: GA Disposition: Standard PACU
--- NOTE | 2023-02-11 08:11 | MHC.SHP ---
Pre-Procedural Eval Section A Date of Service: 02/11/23 The patient is an INPATIENT: No Changes since office visit: Yes Changes in Medication and Yes Patient answered all questions; No Cold of Flu in the past 2 weeks and No New Medical Problems The History & Physical has been completed within 30 days and I have reviewed it.: Yes Section B Chief Complaint: Major depressive disorder, recurrent, severe with Details of Present Illness: HAS BEEN DEPRESSED Relevant Family History (Specify if Yes): No Relevant Social History: None Present Medications: see Short Stay Collaborative assessment Medical History: No relevant PMH History of Previous Operations: No relevant previous surgery (maintenance ect) Allergies: Allergies Allergy/AdvReac Type Severity Reaction Status Date / Time Iodinated Contrast Media Allergy Severe Hives Verified 02/11/23 07:02 [Contrast Dye] bee pollen [BEE STINGS] Allergy Unknown anaphylaxis Verified 02/11/23 07:02 metaxalone [From Skelaxin] Allergy Unknown Unknown Verified 02/11/23 07:02 monocryl/vicryl sutures Allergy Unknown unknown Verified 02/11/23 07:02 morphine [MORPHINE] Allergy Unknown unknown Verified 02/11/23 07:02 moxifloxacin [From Avelox] Allergy Unknown Unknown Verified 02/11/23 07:02 orange [ORANGES] Allergy Unknown anaphylaxis Verified 02/11/23 07:02 red dye Allergy Unknown Hives Verified 02/11/23 07:02 Sulfa (Sulfonamide Allergy Unknown UNKNOWN Verified 02/11/23 07:02 Antibiotics) [SULFA (SULFONAMIDE ANTIBIOTICS)] venom-wasp Allergy Unknown Anaphylaxis Verified 02/11/23 07:02 lamotrigine [From Lamictal] AdvReac Intermediate hx of Verified 02/11/23 07:02 yennifer on doses greater that 200 mg Adhesive Bandages Allergy Unknown Hives Uncoded 02/11/23 07:02 lychees Allergy Unknown Hives Uncoded 02/11/23 07:02 Review of Systems Sugical H&P ROS: Negative: Constitution, Cardiovascular, Respiratory, Neurological, Psychiatric, Hem-Onc, Allergic/Immunologic, Gastrointestinal, Genitourinary, Musculoskeletal, Integumentary, Endocrine and Eyes/Ears/Nose/Throat Exam Surgical H&P Exam: Normal: HEENT, Normal: Heart (tachycardic ), Normal: Lungs (clear), Normal: Extremities, Normal: Abdomen, Normal: Skin and Normal: Neurological Plan Diagnosis/Plan: Unchanged I have reviewed the history and physical and performed a pertinent physical examination on my patient. No changes have occurred unless specified. Time Spent With Patient Time: Total time managing care of this patient today ____ minutes.
--- NOTE | 2023-02-11 08:12 | HO.ECTPROC ---
ECT Procedure Note Diagnosis/Treatment Date of Service: 02/11/23 Diagnosis: Bipolar disorder Previous ECT Date: 12/10/22 Treatment: Maintenance Interval Clinical Notes: Patient has had some increased depressive symptoms Time: Total time managing care of this patient today ____ minutes. ECT Settings Device: THYMATRON DGx Electrode Placement: Right Unilateral Program/Pulse Width: 0.25 Energy Percent: 20 Seizure Duration By EEG (in seconds): 45 Medications Administration General Anesthetic: Etomidate (16) Muscle Relaxant: Succinylcholine (80) Ancillary Medications Analgesics: Torodol - Pre ECT (30) Anti-emetics: Zofran - Pre ECT Miscillaneous Medications: Midazolam Airway Management Airway Management: Bag Mask Ventilation Treatment Recommendations No Changes Recommended: No change Notes: Follow-up treatment in 1 week sent a prescription for oxycodone 10 mg on day of treatment secondary to postop headache Pt Tolerated Procedure w/o Issue: Yes
[2023-02-11] MEDS: oxyCODONE HCl Immed Release 5 MG TABLET 10 MG PO (09:20)
[2023-02-11] MEDS: Acetaminophen 325 MG TABLET 650 MG PO (09:20)
== END 2023-02-11 09:40 | disposition home or self-care (01) ==
PROVIDERS: PCP Internal Medicine; Visit Provider Psychiatry & Neurology Psychiatry
PROC: (CPT 90870; principal; 2023-02-11 15:30)
DX: F31.30 Bipolar disorder, current episode depressed, mild or moderate severity, unspecified (principal); F43.11 Post-traumatic stress disorder, acute; F90.9 Attention-deficit hyperactivity disorder, unspecified type; J45.909 Unspecified asthma, uncomplicated; K21.9 Gastro-esophageal reflux disease without esophagitis; J30.2 Other seasonal allergic rhinitis; L23.1 Allergic contact dermatitis due to adhesives; Z79.899 Other long term (current) drug therapy; Z88.2 Allergy status to sulfonamides; Z88.8 Allergy status to other drugs, medicaments and biological substances; Z88.1 Allergy status to other antibiotic agents; Z91.041 Radiographic dye allergy status; Z20.822 Contact with and (suspected) exposure to COVID-19
CPT/HCPCS: 81025; 87635; 90870; J0330; J1885; J2250; J2405

== ENCOUNTER 2023-02-18 07:10 | Day surgery (SDC) | payer OTHER, SELFPAY ==
--- NOTE | 2023-02-18 07:27 | MHC.SHP ---
Pre-Procedural Eval Section A Date of Service: 02/18/23 Changes since office visit: Yes Patient answered all questions; No Cold of Flu in the past 2 weeks, No New Medical Problems and No Changes in Medication The History & Physical has been completed within 30 days and I have reviewed it.: Yes Section B Chief Complaint: Major depressive disorder, recurrent, severe with Allergies: Allergies Allergy/AdvReac Type Severity Reaction Status Date / Time Iodinated Contrast Media Allergy Severe Hives Verified 02/11/23 07:02 [Contrast Dye] bee pollen [BEE STINGS] Allergy Unknown anaphylaxis Verified 02/11/23 07:02 metaxalone [From Skelaxin] Allergy Unknown Unknown Verified 02/11/23 07:02 monocryl/vicryl sutures Allergy Unknown unknown Verified 02/11/23 07:02 morphine [MORPHINE] Allergy Unknown unknown Verified 02/11/23 07:02 moxifloxacin [From Avelox] Allergy Unknown Unknown Verified 02/11/23 07:02 orange [ORANGES] Allergy Unknown anaphylaxis Verified 02/11/23 07:02 red dye Allergy Unknown Hives Verified 02/11/23 07:02 Sulfa (Sulfonamide Allergy Unknown UNKNOWN Verified 02/11/23 07:02 Antibiotics) [SULFA (SULFONAMIDE ANTIBIOTICS)] venom-wasp Allergy Unknown Anaphylaxis Verified 02/11/23 07:02 lamotrigine [From Lamictal] AdvReac Intermediate hx of Verified 02/11/23 07:02 yennifer on doses greater that 200 mg Adhesive Bandages Allergy Unknown Hives Uncoded 02/11/23 07:02 lychees Allergy Unknown Hives Uncoded 02/11/23 07:02 Plan I have reviewed the history and physical and performed a pertinent physical examination on my patient. No changes have occurred unless specified. Time Spent With Patient Time: Total time managing care of this patient today ____ minutes.
[2023-02-18 07:51] VITALS: BP 105/64; PULSE 92; RESP 20; TEMP 37; O2SAT 99
[2023-02-18 07:53] VITALS: BMI 20.1
[2023-02-18 08:00] LABS: COVID-19 Test Negative (Negative); IDNOW Serial# BCCEAD1C
--- NOTE | 2023-02-18 08:16 | HO.ANESPROP2 ---
[facility] Active Problems Active Problems: All Active Problems (Updated 02/09/23 @ 14:28 by TISH Grissom) Family history of breast cancer (Acute) Bipolar 1 disorder (Acute) History of HPV infection (Acute) Well woman exam with routine gynecological exam (Acute) Past Medical History Medical History (Updated 02/09/23 @ 14:28 by TISH Grissom) ADHD Anxiety Asthma Bipolar 1 disorder Depression Deviated septum GERD (gastroesophageal reflux disease) History of electroconvulsive therapy PTSD (post-traumatic stress disorder) Vasovagal episode Family History Family History (Updated 02/09/23 @ 14:38 by TISH Grissom) Maternal Aunt Breast cancer Maternal Grandmother Breast cancer Paternal Aunt Breast cancer Family history of problems with anesthesia: No Surgical History Surgical History History of bunionectomy History of Problems with Anesthesia: No Social History Social History Household Members: None Housing: Apartment Are you a primary patient care associate to a significant other at home: No Do you presently have visiting nurse or other home services: No Patient Tobacco Use Status: Never used Tobacco Second Hand Smoke Exposure: No Advance Directives: No Advance Directives Information Provided: Yes Patient : No service: No Sexual orientation: Did not discuss. Meds Allergies Allergy/AdvReac Type Severity Reaction Status Date / Time Iodinated Contrast Media Allergy Severe Hives Verified 02/11/23 07:02 [Contrast Dye] bee pollen [BEE STINGS] Allergy Unknown anaphylaxis Verified 02/11/23 07:02 metaxalone [From Skelaxin] Allergy Unknown Unknown Verified 02/11/23 07:02 monocryl/vicryl sutures Allergy Unknown unknown Verified 02/11/23 07:02 morphine [MORPHINE] Allergy Unknown unknown Verified 02/11/23 07:02 moxifloxacin [From Avelox] Allergy Unknown Unknown Verified 02/11/23 07:02 orange [ORANGES] Allergy Unknown anaphylaxis Verified 02/11/23 07:02 red dye Allergy Unknown Hives Verified 02/11/23 07:02 Sulfa (Sulfonamide Allergy Unknown UNKNOWN Verified 02/11/23 07:02 Antibiotics) [SULFA (SULFONAMIDE ANTIBIOTICS)] venom-wasp Allergy Unknown Anaphylaxis Verified 02/11/23 07:02 lamotrigine [From Lamictal] AdvReac Intermediate hx of Verified 02/11/23 07:02 yennifer on doses greater that 200 mg Adhesive Bandages Allergy Unknown Hives Uncoded 02/11/23 07:02 lychees Allergy Unknown Hives Uncoded 02/11/23 07:02 Active Medications: Current Medications Acetaminophen (Acetaminophen 325 Mg Tablet) 650 mg PO ONCE PRN PRN Reason: Pain, Mild (Pain Scale 1-3) Lactated Ringer's (Lr) 1,000 mls @ 50 mls/hr IVCONT .Q20H [place] Oxycodone HCl (Oxycodone Hcl Immed Release 5 Mg Tablet) 10 mg PO ONCE PRN PRN Reason: Pain, Severe (Pain Scale 7-10) Home Medications Medication Instructions Recorded Confirmed Last Taken Type albuterol 90 mcg/actuation aerosol mcg inhalation 08/12/20 02/09/23 08/26/20 History inhaler mcg cetirizine 10 mg tablet (Zyrtec) 10 mg PO DAILY 08/12/20 02/09/23 08/28/20 History clonazepam 1 mg tablet 1 mg PO DAILY 08/12/20 02/09/23 08/26/20 History 1 mg clozapine 50 mg tablet (Clozaril) 50 mg PO BID 08/12/20 02/09/23 08/28/20 History diphenhydramine HCl 50 mg capsule 50 mg PO TID PRN Allergy Symptoms 08/12/20 02/09/23 Unknown History (Banophen) epinephrine 0.1 mg/mL injection 0.1 mg IM Q30M PRN Allergic 08/12/20 02/09/23 08/26/20 History syringe Reaction 0.1 mg famotidine 40 mg tablet 40 mg PO BEDTIME 08/12/20 02/09/23 08/28/20 History fluticasone 100 mcg-salmeterol 50 1 inh inhalation BID 08/12/20 02/09/23 08/28/20 History mcg/dose blistr powdr for inhalation (Advair Diskus) fluticasone propionate 50 1 spray intranasal BID 08/12/20 02/09/23 08/28/20 History mcg/actuation nasal spray,suspension ipratropium 0.5 mg-albuterol 3 mg 3 ml inhalation QID 08/12/20 02/09/23 08/26/20 History (2.5 mg base)/3 mL nebulization 3 mL soln temazepam 30 mg capsule 30 mg PO BEDTIME PRN Insomnia 08/12/20 02/09/23 08/26/20 History 30 mg azelastine 137 mcg (0.1 %) nasal 2 spray intranasal BID 02/09/23 02/09/23 Unknown History spray aerosol cariprazine 6 mg capsule (Vraylar) 6 mg PO DAILY 02/09/23 02/09/23 Unknown History dextroamphetamine-amphetamine ER 30 mg PO DAILY 02/09/23 02/09/23 Unknown History 30 mg 24hr capsule,extend release (Adderall XR) hydroxyzine pamoate 50 mg capsule 50 mg PO TID 02/09/23 02/09/23 Unknown History (Vistaril) ipratropium bromide 21 mcg (0.03 2 spray intranasal BID 02/09/23 02/09/23 Unknown History %) nasal spray metoprolol tartrate 25 mg tablet 25 mg PO DAILY 02/09/23 02/09/23 Unknown History ondansetron HCl 8 mg tablet 8 mg PO Q8H 02/09/23 02/09/23 Unknown History trazodone 150 mg tablet 150 mg PO BEDTIME PRN 02/09/23 02/09/23 Unknown History Exam Exam Date and Time: February 18, 2023 0816 Height,Weight and Vital Signs: Height 5 ft 8 in Weight 60 kg Last Vital Signs Temp 98.6 F 02/18/23 07:51 Pulse 92 02/18/23 07:51 Resp 20 02/18/23 07:51 BP 105/64 02/18/23 07:51 Pulse Ox 99 02/18/23 07:51 O2 Del Method Room Air 02/18/23 07:51 Pertinent Lab Results Pertinent Lab Results: Laboratory Tests 02/18/23 07:12 COVID-19 (DEXTER) Negative COVID-19 Clin Com See Note Airway Mallampati Class: II TM Dist: >3cm Neck ROM: Full Heart: rrr Lungs: cta Assessment and Plan Assessment Anesthesia Assessment: Anesthesia Plan Discussed and Chart Reviewed Final Anesthetic Review Family History of Problems with Anesthesia: No History of Problems with Anesthesia: No NPO: Yes ASA Class: III Final Preanesthetic Review: No Changes in Pt Med Stat, Meds/Allgs Chart Reviewed and Consent Obtained/Reviewed Patient Risk: Intermediate Procedure Risk: Intermediate Anesthetic Plan Anesthetic Plan: GA Disposition: Standard PACU
[2023-02-18 08:33] VITALS: BP 107/57; PULSE 83; RESP 21; TEMP 36.9; O2SAT 98
[2023-02-18 08:38] VITALS: BP 105/64; PULSE 94; RESP 22; O2SAT 99
[2023-02-18 08:43] VITALS: BP 116/66; PULSE 110; RESP 20; O2SAT 100
[2023-02-18 08:48] VITALS: BP 120/75; PULSE 109; RESP 14; O2SAT 97
[2023-02-18] MEDS: oxyCODONE HCl Immed Release 5 MG TABLET 10 MG PO (08:48)
[2023-02-18] MEDS: Acetaminophen 325 MG TABLET 650 MG PO (08:48)
[2023-02-18 09:03] VITALS: BP 108/70; PULSE 100; RESP 16; TEMP 37.1; O2SAT 99
--- NOTE | 2023-02-18 23:59 | HO.ECTPROC ---
ECT Procedure Note Diagnosis/Treatment Date of Service: 02/20/23 Diagnosis: Bipolar disorder Time: Total time managing care of this patient today ____ minutes. ECT Settings Device: THYMATRON DGx Program/Pulse Width: 0.25 Energy Percent: 20 Seizure Duration By EEG (in seconds): 61 Medications Administration General Anesthetic: Etomidate (16) Muscle Relaxant: Succinylcholine (80) Ancillary Medications Analgesics: Torodol - Pre ECT (30) Anti-emetics: Zofran - Pre ECT Airway Management Airway Management: Bag Mask Ventilation Treatment Recommendations No Changes Recommended: No change Electrode Placement: Right Unilateral Notes: 10 mg oxycodone prn sent for aguilar f/u tx 3 wks Pt Tolerated Procedure w/o Issue: Yes
== END 2023-02-18 09:25 | disposition home or self-care (01) ==
PROVIDERS: PCP Internal Medicine; Visit Provider Psychiatry & Neurology Psychiatry
PROC: (CPT 90870; principal; 2023-02-18 08:30)
DX: F31.4 Bipolar disorder, current episode depressed, severe, without psychotic features (principal); F43.11 Post-traumatic stress disorder, acute; J45.909 Unspecified asthma, uncomplicated; K21.9 Gastro-esophageal reflux disease without esophagitis; Z79.899 Other long term (current) drug therapy; Z88.2 Allergy status to sulfonamides; Z88.8 Allergy status to other drugs, medicaments and biological substances; Z88.1 Allergy status to other antibiotic agents; Z91.041 Radiographic dye allergy status; Z20.822 Contact with and (suspected) exposure to COVID-19
CPT/HCPCS: 87635; 90870; J0330; J1885; J2250; J2405

== ENCOUNTER → 2023-03-11 09:12 | Outpatient (BNVA) | payer OTHER, SELFPAY | PROVIDERS: PCP Internal Medicine; Referring Provider Advanced Practice Midwife; Visit Provider Surgery | DX: Z90.3 Acquired absence of stomach [part of] (principal); N64.4 Mastodynia | CPT/HCPCS: 99202 ==

== ENCOUNTER 2023-03-14 06:08 | Day surgery (SDC) | payer OTHER, SELFPAY ==
[2023-03-14] VITALS (7 sets, daily range): BP systolic 102–129; BP diastolic 62–78; PULSE 78–109; RESP 16–18; TEMP 36.3–36.6; O2SAT 97–100
[2023-03-14 06:52] LABS: UPreg QC Valid YES; Urine Pregnancy NEGATIVE (NEGATIVE)
--- NOTE | 2023-03-14 07:05 | MHC.SHP ---
Pre-Procedural Eval Section A Date of Service: 03/14/23 The patient is an INPATIENT: No Changes since office visit: No Cold of Flu in the past 2 weeks, No New Medical Problems, No Changes in Medication and No Patient answered all questions The History & Physical has been completed within 30 days and I have reviewed it.: Yes Section B Chief Complaint: Major depressive disorder, recurrent, severe with Details of Present Illness: Hx of Bipolar, on ECT and Clozaril for chronic suicidality, stable Relevant Family History (Specify if Yes): No Relevant Social History: None Present Medications: see Short Stay Collaborative assessment Medical History: No relevant PMH History of Previous Operations: No relevant previous surgery Allergies: Allergies Allergy/AdvReac Type Severity Reaction Status Date / Time Iodinated Contrast Media Allergy Severe Hives Verified 03/11/23 09:21 [Contrast Dye] bee pollen [BEE STINGS] Allergy Unknown anaphylaxis Verified 03/11/23 09:21 metaxalone [From Skelaxin] Allergy Unknown Unknown Verified 03/11/23 09:21 monocryl/vicryl sutures Allergy Unknown unknown Verified 03/11/23 09:21 morphine [MORPHINE] Allergy Unknown unknown Verified 03/11/23 09:21 moxifloxacin [From Avelox] Allergy Unknown Unknown Verified 03/11/23 09:21 orange [ORANGES] Allergy Unknown anaphylaxis Verified 03/11/23 09:21 red dye Allergy Unknown Hives Verified 03/11/23 09:21 Sulfa (Sulfonamide Allergy Unknown UNKNOWN Verified 03/11/23 09:21 Antibiotics) [SULFA (SULFONAMIDE ANTIBIOTICS)] venom-wasp Allergy Unknown Anaphylaxis Verified 03/11/23 09:21 lamotrigine [From Lamictal] AdvReac Intermediate hx of Verified 03/11/23 09:21 yennifer on doses greater that 200 mg Adhesive Bandages Allergy Unknown Hives Uncoded 03/11/23 09:21 lychees Allergy Unknown Hives Uncoded 03/11/23 09:21 Review of Systems Sugical H&P ROS: Negative: Constitution, Cardiovascular, Respiratory, Neurological, Psychiatric, Hem-Onc, Allergic/Immunologic, Gastrointestinal, Genitourinary, Musculoskeletal, Integumentary, Endocrine and Eyes/Ears/Nose/Throat Exam Surgical H&P Exam: Normal: HEENT, Normal: Heart, Normal: Lungs, Normal: Extremities, Normal: Abdomen, Normal: Skin and Normal: Neurological Plan Diagnosis/Plan: Unchanged I have reviewed the history and physical and performed a pertinent physical examination on my patient. No changes have occurred unless specified. Time Spent With Patient Time: Total time managing care of this patient today __15__ minutes.
--- NOTE | 2023-03-14 07:06 | HO.ECTPROC ---
ECT Procedure Note Diagnosis/Treatment Date of Service: 03/14/23 Diagnosis: Bipolar disorder Previous ECT Date: 02/18/23 Treatment: Maintenance Interval Clinical Notes: Patient's mood remains stable, she complained that stimulants are not working long enough. She has Percocet after treatment, script will be sent today. Time: Total time managing care of this patient today __30__ minutes. ECT Settings Device: THYMATRON DGx Electrode Placement: Right Unilateral Program/Pulse Width: 0.25 Energy Percent: 20 Seizure Duration By EEG (in seconds): 50 By Motor Observation (in seconds): 0 Medications Administration General Anesthetic: Etomidate (16) Muscle Relaxant: Succinylcholine (80) Ancillary Medications Analgesics: Torodol - Pre ECT Anti-emetics: Zofran - Pre ECT Airway Management Airway Management: Bag Mask Ventilation Treatment Recommendations No Changes Recommended: No change Pt Tolerated Procedure w/o Issue: Yes
--- NOTE | 2023-03-14 07:59 | P.CONAN_ITS ---
[facility] Active Problems Active Problems: All Active Problems (Updated 03/14/23 @ 06:36 by Gunjan Cortes RN) Well woman exam with routine gynecological exam (Acute) History of HPV infection (Acute) Family history of breast cancer (Acute) Mastodynia of left breast (Acute) Bipolar 1 disorder (Acute) Past Medical History Medical History ADHD Anxiety Asthma Bipolar 1 disorder Depression Deviated septum GERD (gastroesophageal reflux disease) History of electroconvulsive therapy History of electroconvulsive therapy PTSD (post-traumatic stress disorder) Vasovagal episode Family History Family History Maternal Aunt Breast cancer, Onset Age: 35 Paternal Aunt Breast cancer, Onset Age: 44 Paternal Uncle Renal cancer Pancreatic cancer Family history of problems with anesthesia: No Surgical History Surgical History History of bunionectomy History of Problems with Anesthesia: No Social History Social History Household Members: None Housing: Apartment Are you a primary career development counselor to a significant other at home: No Do you presently have visiting nurse or other home services: No Patient Tobacco Use Status: Never used Tobacco Second Hand Smoke Exposure: No Are you DNR?: No Advance Directives: No Advance Directives Information Provided: Yes Nutrition Risks: No Nutritional Risk FDLMP: stopped 3 days ago service: No Sexual orientation: Did not discuss. Meds Allergies Allergy/AdvReac Type Severity Reaction Status Date / Time Iodinated Contrast Media Allergy Severe Hives Verified 03/11/23 09:21 [Contrast Dye] bee pollen [BEE STINGS] Allergy Unknown anaphylaxis Verified 03/11/23 09:21 metaxalone [From Skelaxin] Allergy Unknown Unknown Verified 03/11/23 09:21 monocryl/vicryl sutures Allergy Unknown unknown Verified 03/11/23 09:21 morphine [MORPHINE] Allergy Unknown unknown Verified 03/11/23 09:21 moxifloxacin [From Avelox] Allergy Unknown Unknown Verified 03/11/23 09:21 orange [ORANGES] Allergy Unknown anaphylaxis Verified 03/11/23 09:21 red dye Allergy Unknown Hives Verified 03/11/23 09:21 Sulfa (Sulfonamide Allergy Unknown UNKNOWN Verified 03/11/23 09:21 Antibiotics) [SULFA (SULFONAMIDE ANTIBIOTICS)] venom-wasp Allergy Unknown Anaphylaxis Verified 03/11/23 09:21 lamotrigine [From Lamictal] AdvReac Intermediate hx of Verified 03/11/23 09:21 yennifer on doses greater that 200 mg Adhesive Bandages Allergy Unknown Hives Uncoded 03/11/23 09:21 lychees Allergy Unknown Hives Uncoded 03/11/23 09:21 Home Medications Medication Instructions Recorded Confirmed Last Taken Type albuterol 90 mcg/actuation aerosol mcg inhalation 08/12/20 03/11/23 08/26/20 History inhaler mcg cetirizine 10 mg tablet (Zyrtec) 10 mg PO DAILY 08/12/20 03/11/23 08/28/20 History clonazepam 1 mg tablet 1 mg PO DAILY 08/12/20 03/11/23 08/26/20 History 1 mg clozapine 50 mg tablet (Clozaril) 50 mg PO BID 08/12/20 03/11/23 08/28/20 History diphenhydramine HCl 50 mg capsule 50 mg PO TID PRN Allergy Symptoms 08/12/20 03/11/23 Unknown History (Banophen) epinephrine 0.1 mg/mL injection 0.1 mg IM Q30M PRN Allergic 08/12/20 03/11/23 08/26/20 History syringe Reaction 0.1 mg famotidine 40 mg tablet 40 mg PO BEDTIME 08/12/20 03/11/23 08/28/20 History fluticasone 100 mcg-salmeterol 50 1 inh inhalation BID 08/12/20 03/11/23 1 History mcg/dose blistr powdr for inhalation (Advair Diskus) fluticasone propionate 50 1 spray intranasal BID 08/12/20 03/11/23 08/28/20 History mcg/actuation nasal spray,suspension ipratropium 0.5 mg-albuterol 3 mg 3 ml inhalation QID 08/12/20 03/11/23 08/26/20 History (2.5 mg base)/3 mL nebulization 3 mL soln temazepam 30 mg capsule 30 mg PO BEDTIME PRN Insomnia 08/12/20 03/11/23 08/26/20 History 30 mg azelastine 137 mcg (0.1 %) nasal 2 spray intranasal BID 02/09/23 03/11/23 Unknown History spray aerosol cariprazine 6 mg capsule (Vraylar) 6 mg PO DAILY 02/09/23 03/11/23 Unknown History dextroamphetamine-amphetamine ER 30 mg PO DAILY 02/09/23 03/11/23 Unknown History 30 mg 24hr capsule,extend release (Adderall XR) hydroxyzine pamoate 50 mg capsule 50 mg PO TID 02/09/23 03/11/23 Unknown History (Vistaril) ipratropium bromide 21 mcg (0.03 2 spray intranasal BID 02/09/23 03/11/23 Unknown History %) nasal spray metoprolol tartrate 25 mg tablet 25 mg PO DAILY 02/09/23 03/11/23 Unknown History ondansetron HCl 8 mg tablet 8 mg PO Q8H 02/09/23 03/11/23 Unknown History trazodone 150 mg tablet 150 mg PO BEDTIME PRN 02/09/23 03/11/23 Unknown History Exam Exam Date and Time: March 14, 2023 0759 Height,Weight and Vital Signs: Height 5 ft 8 in Weight 59.874 kg Last Vital Signs Temp 97.8 F 03/14/23 07:26 Pulse 109 H 03/14/23 07:41 Resp 16 03/14/23 07:41 BP 116/73 03/14/23 07:41 Pulse Ox 98 03/14/23 07:41 O2 Del Method Room Air 03/14/23 07:41 O2 Flow Rate 2 03/14/23 07:36 Pertinent Lab Results Pertinent Lab Results: Laboratory Tests 03/14/23 06:30 Urine Test NEGATIVE Airway Mallampati Class: II TM Dist: >3cm Neck ROM: Full Heart: 1928 Lungs: CTA Assessment and Plan Final Anesthetic Review Family History of Problems with Anesthesia: No History of Problems with Anesthesia: No ASA Class: III Final Preanesthetic Review: Meds/Allgs Chart Reviewed, Consent Obtained/Reviewed and Anes Risks/Benef Reviewed Patient Risk: Low Procedure Risk: Low Anesthetic Plan Anesthetic Plan: GA Disposition: Standard PACU
[2023-03-14] MEDS: Acetaminophen 325 MG TABLET 650 MG PO (08:05)
[2023-03-14] MEDS: oxyCODONE HCl Immed Release 5 MG TABLET 10 MG PO (08:06)
--- NOTE | 2023-03-14 14:19 | HO.POSTANES ---
Post Anesthesia Evaluation Post Anesthesia Evaluation Vital Signs: Vital Signs Temp Pulse Resp BP Pulse Ox O2 Del Method O2 Flow Rate 03/14/23 08:11 99 18 123/78 99 Room Air 03/14/23 07:56 104 H 18 109/63 100 Room Air 03/14/23 07:41 109 H 16 116/73 98 Room Air 03/14/23 07:36 93 18 109/68 98 Nasal Cannula 2 03/14/23 07:31 78 16 102/62 97 Nasal Cannula 4 03/14/23 07:26 97.8 F 82 16 108/63 99 Nasal Cannula 4 03/14/23 06:20 97.3 F 96 18 129/66 100 Room Air Anesthesia: General Mental Status: Awake Pain Control: Satisfactory Nausea/Vomiting: None Hydration: Adequate Anesthesia-Related Issues: No Anes. Related Issues
== END 2023-03-14 08:35 | disposition home or self-care (01) ==
PROVIDERS: PCP Internal Medicine; Visit Provider Psychiatry & Neurology Psychiatry
PROC: (CPT 90870; principal; 2023-03-14 07:30)
DX: F31.9 Bipolar disorder, unspecified (principal); J45.909 Unspecified asthma, uncomplicated; Z88.2 Allergy status to sulfonamides; Z88.5 Allergy status to narcotic agent
CPT/HCPCS: 81025; 90870; J0330; J1885; J2405

== ENCOUNTER 2023-04-13 13:07 | Outpatient (REF) | payer OTHER, SELFPAY ==
--- NOTE | ~2023-04-13 | MM_ITS ---
EXAMINATION: MM SCREENING DIGITAL BREAST TOMOSYNTHESIS, BILATERAL CLINICAL INFORMATION: Screening. Asymptomatic. Age 37. No prior breast imaging. Family history breast cancer. The lifetime risk of breast cancer based on the Tyrer-Cuzick Model is 29%. COMPARISON: None (current study represents initial baseline exam). TECHNIQUE: Digital breast tomosynthesis is performed in both the craniocaudal and mediolateral oblique views along with computer-aided detection (CAD). Synthesized 2D images are generated from the tomosynthesis. FINDINGS: There are scattered areas of fibroglandular density (ACR BI-RADS breast composition Category b). Breast tissue composition borders on heterogeneously dense. There are no significant masses, abnormal calcifications, or other abnormalities. The axilla and skin contours are unremarkable. MM/MM tomosynthesis screening BI IMPRESSION: No mammographic evidence of malignancy. ASSESSMENT: BI-RADS 1: Negative RECOMMENDATION: -Routine annual mammography screening. -The lifetime risk of breast cancer based on the Tyrer-Cuzick Model is 29%. Additional annual adjunct screening with breast MRI may be of benefit in women with a risk score of 20% or greater. This patient's information was entered into a reminder system with a target due date for their next mammogram.
== END 2023-04-13 13:08 | disposition home or self-care (01) ==
LOC: HO.MAMMO 13:07
PROVIDERS: PCP Internal Medicine; Visit Provider Surgery
DX: Z12.31 Encounter for screening mammogram for malignant neoplasm of breast (principal)
CPT/HCPCS: 77063; 77067

== ENCOUNTER → 2023-04-26 15:03 | Outpatient (BNVA) | payer OTHER, SELFPAY | PROVIDERS: PCP Internal Medicine; Visit Provider Surgery | DX: Z91.89 Other specified personal risk factors, not elsewhere classified (principal); Z80.3 Family history of malignant neoplasm of breast | CPT/HCPCS: 99212 ==

== ENCOUNTER 2023-04-29 08:08 | Day surgery (SDC) | payer OTHER, SELFPAY ==
[2023-04-29] VITALS (11 sets, daily range): BP systolic 101–124; BP diastolic 46–78; PULSE 67–125; RESP 12–24; TEMP 36.1–37.3; O2SAT 94–100; BMI 19.5
--- NOTE | 2023-04-29 08:26 | P.CONAN_ITS ---
[facility] Active Problems Active Problems: All Active Problems (Updated 04/26/23 @ 15:25 by Robert Dunham MD) At high risk for breast cancer (Acute) Well woman exam with routine gynecological exam (Acute) History of HPV infection (Acute) Family history of breast cancer (Acute) Mastodynia of left breast (Acute) Bipolar 1 disorder (Acute) Past Medical History Medical History ADHD Anxiety Asthma Bipolar 1 disorder Depression Deviated septum GERD (gastroesophageal reflux disease) History of electroconvulsive therapy History of electroconvulsive therapy PTSD (post-traumatic stress disorder) Vasovagal episode Family History Family History Maternal Aunt Breast cancer, Onset Age: 35 Paternal Aunt Breast cancer, Onset Age: 44 Paternal Uncle Renal cancer Pancreatic cancer Family history of problems with anesthesia: No Surgical History Surgical History History of bunionectomy History of Problems with Anesthesia: No Social History Social History Household Members: None Housing: Apartment Are you a primary customer care representative to a significant other at home: No Do you presently have visiting nurse or other home services: No Patient Tobacco Use Status: Never used Tobacco Second Hand Smoke Exposure: No Advance Directives: No Advance Directives Information Provided: Yes service: No Sexual orientation: Did not discuss. Meds Allergies Allergy/AdvReac Type Severity Reaction Status Date / Time Iodinated Contrast Media Allergy Severe Hives Verified 04/26/23 15:07 [Contrast Dye] bee pollen [BEE STINGS] Allergy Unknown anaphylaxis Verified 04/26/23 15:07 metaxalone [From Skelaxin] Allergy Unknown Unknown Verified 04/26/23 15:07 monocryl/vicryl sutures Allergy Unknown unknown Verified 04/26/23 15:07 morphine [MORPHINE] Allergy Unknown unknown Verified 04/26/23 15:07 moxifloxacin [From Avelox] Allergy Unknown Unknown Verified 04/26/23 15:07 orange [ORANGES] Allergy Unknown anaphylaxis Verified 04/26/23 15:07 red dye Allergy Unknown Hives Verified 04/26/23 15:07 Sulfa (Sulfonamide Allergy Unknown UNKNOWN Verified 04/26/23 15:07 Antibiotics) [SULFA (SULFONAMIDE ANTIBIOTICS)] venom-wasp Allergy Unknown Anaphylaxis Verified 04/26/23 15:07 lamotrigine [From Lamictal] AdvReac Intermediate hx of Verified 04/26/23 15:07 yennifer on doses greater that 200 mg Adhesive Bandages Allergy Unknown Hives Uncoded 04/26/23 15:07 lychees Allergy Unknown Hives Uncoded 04/26/23 15:07 Active Medications: Current Medications Lactated Ringer's (Lr) 1,000 mls @ 50 mls/hr IVCONT .Q20H AUGUSTO Home Medications Medication Instructions Recorded Confirmed Last Taken Type albuterol 90 mcg/actuation aerosol mcg inhalation 08/12/20 04/26/23 08/26/20 History inhaler mcg cetirizine 10 mg tablet (Zyrtec) 10 mg PO DAILY 08/12/20 04/26/23 08/28/20 History clonazepam 1 mg tablet 1 mg PO DAILY 08/12/20 04/26/23 08/26/20 History 1 mg clozapine 50 mg tablet (Clozaril) 50 mg PO BID 08/12/20 04/26/23 08/28/20 History diphenhydramine HCl 50 mg capsule 50 mg PO TID PRN Allergy Symptoms 08/12/20 04/26/23 Unknown History (Banophen) epinephrine 0.1 mg/mL injection 0.1 mg IM Q30M PRN Allergic 08/12/20 04/26/23 08/26/20 History syringe Reaction 0.1 mg famotidine 40 mg tablet 40 mg PO BEDTIME 08/12/20 04/26/23 08/28/20 History fluticasone 100 mcg-salmeterol 50 1 inh inhalation BID 08/12/20 04/26/23 08/28/20 History mcg/dose blistr powdr for inhalation (Advair Diskus) fluticasone propionate 50 1 spray intranasal BID 08/12/20 04/26/23 08/28/20 History mcg/actuation nasal spray,suspension ipratropium 0.5 mg-albuterol 3 mg 3 ml inhalation QID 08/12/20 04/26/23 08/26/20 History (2.5 mg base)/3 mL nebulization 3 mL soln temazepam 30 mg capsule 30 mg PO BEDTIME PRN Insomnia 08/12/20 04/26/23 08/26/20 History 30 mg azelastine 137 mcg (0.1 %) nasal 2 spray intranasal BID 02/09/23 04/26/23 Unknown History spray aerosol cariprazine 6 mg capsule (Vraylar) 6 mg PO DAILY 02/09/23 04/26/23 Unknown History dextroamphetamine-amphetamine ER 30 mg PO DAILY 02/09/23 04/26/23 Unknown History 30 mg 24hr capsule,extend release (Adderall XR) hydroxyzine pamoate 50 mg capsule 50 mg PO TID 02/09/23 04/26/23 Unknown History (Vistaril) ipratropium bromide 21 mcg (0.03 2 spray intranasal BID 02/09/23 04/26/23 Unknown History %) nasal spray metoprolol tartrate 25 mg tablet 25 mg PO DAILY 02/09/23 04/26/23 Unknown History ondansetron HCl 8 mg tablet 8 mg PO Q8H 02/09/23 04/26/23 Unknown History trazodone 150 mg tablet 150 mg PO BEDTIME PRN 02/09/23 04/26/23 Unknown History Exam Exam Date and Time: April 29, 2023 0826 Height,Weight and Vital Signs: Height 5 ft 8 in Weight 58.06 kg Last Vital Signs Temp 98.9 F 04/29/23 08:19 Pulse 109 H 04/29/23 08:19 Resp 20 04/29/23 08:19 BP 121/61 04/29/23 08:19 Pulse Ox 98 04/29/23 08:19 O2 Del Method Room Air 04/29/23 08:19 Airway Mallampati Class: II TM Dist: >3cm Neck ROM: Full Heart: tachy Lungs: cta Assessment and Plan Assessment Anesthesia Assessment: Anesthesia Plan Discussed and Chart Reviewed Final Anesthetic Review Family History of Problems with Anesthesia: No History of Problems with Anesthesia: No NPO: Yes ASA Class: III Final Preanesthetic Review: No Changes in Pt Med Stat, Meds/Allgs Chart Reviewed and Consent Obtained/Reviewed Patient Risk: Intermediate Procedure Risk: Intermediate Anesthetic Plan Anesthetic Plan: GA Disposition: Standard PACU
--- NOTE | 2023-04-29 09:49 | MHC.SHP ---
Pre-Procedural Eval Section A Date of Service: 04/29/23 The patient is an INPATIENT: No Changes since office visit: Yes Patient answered all questions; No Cold of Flu in the past 2 weeks, No New Medical Problems and No Changes in Medication The History & Physical has been completed within 30 days and I have reviewed it.: Yes Section B Chief Complaint: depression disorder Allergies: Allergies Allergy/AdvReac Type Severity Reaction Status Date / Time Iodinated Contrast Media Allergy Severe Hives Verified 04/26/23 15:07 [Contrast Dye] bee pollen [BEE STINGS] Allergy Unknown anaphylaxis Verified 04/26/23 15:07 metaxalone [From Skelaxin] Allergy Unknown Unknown Verified 04/26/23 15:07 monocryl/vicryl sutures Allergy Unknown unknown Verified 04/26/23 15:07 morphine [MORPHINE] Allergy Unknown unknown Verified 04/26/23 15:07 moxifloxacin [From Avelox] Allergy Unknown Unknown Verified 04/26/23 15:07 orange [ORANGES] Allergy Unknown anaphylaxis Verified 04/26/23 15:07 red dye Allergy Unknown Hives Verified 04/26/23 15:07 Sulfa (Sulfonamide Allergy Unknown UNKNOWN Verified 04/26/23 15:07 Antibiotics) [SULFA (SULFONAMIDE ANTIBIOTICS)] venom-wasp Allergy Unknown Anaphylaxis Verified 04/26/23 15:07 lamotrigine [From Lamictal] AdvReac Intermediate hx of Verified 04/26/23 15:07 yennifer on doses greater that 200 mg Adhesive Bandages Allergy Unknown Hives Uncoded 04/26/23 15:07 lychees Allergy Unknown Hives Uncoded 04/26/23 15:07 Plan I have reviewed the history and physical and performed a pertinent physical examination on my patient. No changes have occurred unless specified. Time Spent With Patient Time: Total time managing care of this patient today ____ minutes.
--- NOTE | 2023-04-29 13:09 | PC.NURSE ---
delay in treatment per anesthesia. plan to do procedure at 1330.
[2023-04-29] MEDS: oxyCODONE HCl Immed Release 5 MG TABLET 10 MG PO (14:06)
--- NOTE | 2023-04-29 14:06 | HO.ECTPROC ---
ECT Procedure Note Diagnosis/Treatment Date of Service: 05/02/23 Diagnosis: Bipolar disorder Interval Clinical Notes: pt pressured rapid cycling dysphoric and labile feels ect helpful for school HAD INITIAL ATTEMPT AT TX DID NOT TOLERATE ETOMIDATE AND WAS NOT FULLY SEDATED DECISION AFTER PT URGED NEED FOR TX AFTER COUPLE HRS WAS TX WITH CHANGE TO BREVITAL WHICH SHE TOLERATED WELL Time: Total time managing care of this patient today _60___ minutes. ECT Settings Device: THYMATRON DGx Program/Pulse Width: 0.25 Energy Percent: 20 Seizure Duration By EEG (in seconds): 51 Medications Administration General Anesthetic: Methohexital (100) Muscle Relaxant: Succinylcholine (80) Ancillary Medications Analgesics: Torodol - Pre ECT Anti-emetics: Zofran - Pre ECT Miscillaneous Medications: Propofol Airway Management Airway Management: Bag Mask Ventilation Treatment Recommendations Program/Pulse Width: 0.25 Energy Percent: 20 Notes: DID WELL WITH BREVITAL CONT THIS TX F/U 2 WEEKS DECREASE DOSE
[2023-04-29] MEDS: Acetaminophen 325 MG TABLET 650 MG PO (14:07)
== END 2023-04-29 14:55 | disposition home or self-care (01) ==
PROVIDERS: PCP Internal Medicine; Visit Provider Psychiatry & Neurology Psychiatry
PROC: (CPT 90870; principal; 2023-04-29 10:00)
DX: F31.9 Bipolar disorder, unspecified (principal); F43.10 Post-traumatic stress disorder, unspecified; F98.8 Other specified behavioral and emotional disorders with onset usually occurring in childhood and adolescence; F50.9 Eating disorder, unspecified; Z68.20 Body mass index [BMI] 20.0-20.9, adult; D64.9 Anemia, unspecified; J45.909 Unspecified asthma, uncomplicated; K21.9 Gastro-esophageal reflux disease without esophagitis; L23.1 Allergic contact dermatitis due to adhesives; Z79.51 Long term (current) use of inhaled steroids; Z79.899 Other long term (current) drug therapy; Z88.1 Allergy status to other antibiotic agents; Z88.2 Allergy status to sulfonamides; Z88.8 Allergy status to other drugs, medicaments and biological substances; Z91.041 Radiographic dye allergy status
CPT/HCPCS: 90870; J0330; J1200; J1885; J2405

== ENCOUNTER 2023-05-13 06:24 | Day surgery (SDC) | payer OTHER, SELFPAY ==
[2023-05-13] VITALS (8 sets, daily range): BP systolic 98–119; BP diastolic 50–72; PULSE 75–120; RESP 16–22; TEMP 36.6–37.3; O2SAT 95–100; BMI 19.0
--- NOTE | 2023-05-13 07:30 | MHC.SHP ---
Pre-Procedural Eval Section A Date of Service: 05/13/23 The patient is an INPATIENT: No Changes since office visit: Yes Patient answered all questions; No Cold of Flu in the past 2 weeks, No New Medical Problems and No Changes in Medication The History & Physical has been completed within 30 days and I have reviewed it.: Yes Section B Chief Complaint: Bipolar disorder rapid cycling Details of Present Illness: Hx of Bipolar, on ECT and Clozaril for chronic mood instability Relevant Family History (Specify if Yes): No Relevant Social History: None Present Medications: see Short Stay [facility] assessment Medical History: No relevant PMH History of Previous Operations: Relevant previous surgery/procedure and date(s) (Recurrent ECT) Allergies: Allergies Allergy/AdvReac Type Severity Reaction Status Date / Time Iodinated Contrast Media Allergy Severe Hives Verified 04/26/23 15:07 [Contrast Dye] bee pollen [BEE STINGS] Allergy Unknown anaphylaxis Verified 04/26/23 15:07 metaxalone [From Skelaxin] Allergy Unknown Unknown Verified 04/26/23 15:07 monocryl/vicryl sutures Allergy Unknown unknown Verified 04/26/23 15:07 morphine [MORPHINE] Allergy Unknown unknown Verified 04/26/23 15:07 moxifloxacin [From Avelox] Allergy Unknown Unknown Verified 04/26/23 15:07 orange [ORANGES] Allergy Unknown anaphylaxis Verified 04/26/23 15:07 red dye Allergy Unknown Hives Verified 04/26/23 15:07 Sulfa (Sulfonamide Allergy Unknown UNKNOWN Verified 04/26/23 15:07 Antibiotics) [SULFA (SULFONAMIDE ANTIBIOTICS)] venom-wasp Allergy Unknown Anaphylaxis Verified 04/26/23 15:07 lamotrigine [From Lamictal] AdvReac Intermediate hx of Verified 04/26/23 15:07 yennifer on doses greater that 200 mg Adhesive Bandages Allergy Unknown Hives Uncoded 04/26/23 15:07 lychees Allergy Unknown Hives Uncoded 04/26/23 15:07 Review of Systems Sugical H&P ROS: Negative: Constitution, Cardiovascular, Respiratory, Neurological, Psychiatric, Hem-Onc, Allergic/Immunologic, Gastrointestinal, Genitourinary, Musculoskeletal, Integumentary, Endocrine and Eyes/Ears/Nose/Throat Exam Surgical H&P Exam: Normal: Heart, Normal: Lungs and Normal: Neurological Plan Diagnosis/Plan: Unchanged I have reviewed the history and physical and performed a pertinent physical examination on my patient. No changes have occurred unless specified. Time Spent With Patient Time: Total time managing care of this patient today ____ minutes.
--- NOTE | 2023-05-13 08:36 | HO.ANESPROP2 ---
[facility] Active Problems Active Problems: All Active Problems (Updated 04/26/23 @ 15:25 by Robert Dunham MD) At high risk for breast cancer (Acute) Well woman exam with routine gynecological exam (Acute) History of HPV infection (Acute) Family history of breast cancer (Acute) Mastodynia of left breast (Acute) Bipolar 1 disorder (Acute) Past Medical History Medical History ADHD Anxiety Asthma Bipolar 1 disorder Depression Deviated septum GERD (gastroesophageal reflux disease) History of electroconvulsive therapy History of electroconvulsive therapy PTSD (post-traumatic stress disorder) Vasovagal episode Family History Family History Maternal Aunt Breast cancer, Onset Age: 35 Paternal Aunt Breast cancer, Onset Age: 44 Paternal Uncle Renal cancer Pancreatic cancer Family history of problems with anesthesia: No Surgical History Surgical History History of bunionectomy History of Problems with Anesthesia: No Social History Social History Household Members: None Housing: Apartment Are you a primary healthcare science specialist to a significant other at home: No Do you presently have visiting nurse or other home services: No Patient Tobacco Use Status: Never used Tobacco Second Hand Smoke Exposure: No Advance Directives: No Advance Directives Information Provided: Yes service: No Sexual orientation: Did not discuss. Meds Allergies Allergy/AdvReac Type Severity Reaction Status Date / Time Iodinated Contrast Media Allergy Severe Hives Verified 04/26/23 15:07 [Contrast Dye] bee pollen [BEE STINGS] Allergy Unknown anaphylaxis Verified 04/26/23 15:07 metaxalone [From Skelaxin] Allergy Unknown Unknown Verified 04/26/23 15:07 monocryl/vicryl sutures Allergy Unknown unknown Verified 04/26/23 15:07 morphine [MORPHINE] Allergy Unknown unknown Verified 04/26/23 15:07 moxifloxacin [From Avelox] Allergy Unknown Unknown Verified 04/26/23 15:07 orange [ORANGES] Allergy Unknown anaphylaxis Verified 04/26/23 15:07 red dye Allergy Unknown Hives Verified 04/26/23 15:07 Sulfa (Sulfonamide Allergy Unknown UNKNOWN Verified 04/26/23 15:07 Antibiotics) [SULFA (SULFONAMIDE ANTIBIOTICS)] venom-wasp Allergy Unknown Anaphylaxis Verified 04/26/23 15:07 lamotrigine [From Lamictal] AdvReac Intermediate hx of Verified 04/26/23 15:07 yennifer on doses greater that 200 mg Adhesive Bandages Allergy Unknown Hives Uncoded 04/26/23 15:07 lychees Allergy Unknown Hives Uncoded 04/26/23 15:07 Home Medications Medication Instructions Recorded Confirmed Last Taken Type albuterol 90 mcg/actuation aerosol mcg inhalation 08/12/20 04/26/23 08/26/20 History inhaler mcg cetirizine 10 mg tablet (Zyrtec) 10 mg PO DAILY 08/12/20 04/26/23 08/28/20 History clonazepam 1 mg tablet 1 mg PO DAILY 08/12/20 04/26/23 08/26/20 History 1 mg clozapine 50 mg tablet (Clozaril) 50 mg PO BID 08/12/20 04/26/23 08/28/20 History diphenhydramine HCl 50 mg capsule 50 mg PO TID PRN Allergy Symptoms 08/12/20 04/26/23 Unknown History (Banophen) epinephrine 0.1 mg/mL injection 0.1 mg IM Q30M PRN Allergic 08/12/20 04/26/23 08/26/20 History syringe Reaction 0.1 mg famotidine 40 mg tablet 40 mg PO BEDTIME 08/12/20 04/26/23 08/28/20 History fluticasone 100 mcg-salmeterol 50 1 inh inhalation BID 08/12/20 04/26/23 08/28/20 History mcg/dose blistr powdr for inhalation (Advair Diskus) fluticasone propionate 50 1 spray intranasal BID 08/12/20 04/26/23 08/28/20 History mcg/actuation nasal spray,suspension ipratropium 0.5 mg-albuterol 3 mg 3 ml inhalation QID 08/12/20 04/26/23 08/26/20 History (2.5 mg base)/3 mL nebulization 3 mL soln temazepam 30 mg capsule 30 mg PO BEDTIME PRN Insomnia 08/12/20 04/26/23 08/26/20 History 30 mg azelastine 137 mcg (0.1 %) nasal 2 spray intranasal BID 02/09/23 04/26/23 Unknown History spray aerosol cariprazine 6 mg capsule (Vraylar) 6 mg PO DAILY 02/09/23 04/26/23 Unknown History dextroamphetamine-amphetamine ER 30 mg PO DAILY 02/09/23 04/26/23 Unknown History 30 mg 24hr capsule,extend release (Adderall XR) hydroxyzine pamoate 50 mg capsule 50 mg PO TID 02/09/23 04/26/23 Unknown History (Vistaril) ipratropium bromide 21 mcg (0.03 2 spray intranasal BID 02/09/23 04/26/23 Unknown History %) nasal spray metoprolol tartrate 25 mg tablet 25 mg PO DAILY 02/09/23 04/26/23 Unknown History ondansetron HCl 8 mg tablet 8 mg PO Q8H 02/09/23 04/26/23 Unknown History trazodone 150 mg tablet 150 mg PO BEDTIME PRN 02/09/23 04/26/23 Unknown History Exam Exam Date and Time: May 13, 2023 0836 Height,Weight and Vital Signs: Height 5 ft 8 in Weight 56.699 kg Last Vital Signs Temp 99.2 F 05/13/23 07:59 Pulse 106 H 05/13/23 08:28 Resp 20 05/13/23 08:28 BP 111/71 05/13/23 08:28 Pulse Ox 98 05/13/23 08:28 O2 Del Method Room Air 05/13/23 08:28 Airway Mallampati Class: II TM Dist: >3cm Neck ROM: Full Heart: RRR Lungs: CTA Assessment and Plan Final Anesthetic Review Family History of Problems with Anesthesia: No History of Problems with Anesthesia: No ASA Class: III Final Preanesthetic Review: Meds/Allgs Chart Reviewed, Consent Obtained/Reviewed and Anes Risks/Benef Reviewed Patient Risk: Low Procedure Risk: Low Anesthetic Plan Anesthetic Plan: GA Disposition: Standard PACU
--- NOTE | 2023-05-13 08:37 | HO.POSTANES ---
Post Anesthesia Evaluation Post Anesthesia Evaluation Date of Service: 05/13/23 Vital Signs: Vital Signs Temp Pulse Resp BP Pulse Ox O2 Del Method 05/13/23 08:28 106 H 20 111/71 98 Room Air 05/13/23 08:14 119 H 20 114/72 98 Room Air 05/13/23 08:09 86 21 H 101/54 L 97 Room Air 05/13/23 08:04 88 20 98/50 L 97 Room Air 05/13/23 07:59 99.2 F 90 20 100/52 L 95 Room Air 05/13/23 06:45 98.7 F 120 H 22 H 119/59 L 100 Room Air Anesthesia: General Mental Status: Awake Pain Control: Satisfactory Nausea/Vomiting: None Hydration: Adequate Anesthesia-Related Issues: No Anes. Related Issues
[2023-05-13] MEDS: oxyCODONE HCl Immed Release 5 MG TABLET 10 MG PO (08:43)
[2023-05-13] MEDS: Acetaminophen 325 MG TABLET 650 MG PO (08:44)
--- NOTE | 2023-05-13 13:19 | HO.ECTPROC ---
ECT Procedure Note Diagnosis/Treatment Date of Service: 05/13/23 Diagnosis: Bipolar disorder Previous ECT Date: 04/29/23 Treatment: Maintenance Interval Clinical Notes: pt with rapid cyclingdysphoric with racing thoughts had pre tx anxiety flashbacks to last tx Time: Total time managing care of this patient today __30__ minutes. ECT Settings Device: THYMATRON DGx Electrode Placement: Right Unilateral Program/Pulse Width: 0.25 Energy Percent: 30 Seizure Duration By EEG (in seconds): 44 Medications Administration General Anesthetic: Methohexital (100) Muscle Relaxant: Succinylcholine (80) Ancillary Medications Analgesics: Torodol - Pre ECT Anti-emetics: Zofran - Pre ECT Miscillaneous Medications: Midazolam Airway Management Airway Management: Bag Mask Ventilation Treatment Recommendations Electrode Placement: Right Unilateral Program/Pulse Width: 0.25 Notes: did well with brevital cont tx q 2-4 weeks denies active si
== END 2023-05-13 09:45 | disposition home or self-care (01) ==
PROVIDERS: PCP Internal Medicine; Visit Provider Psychiatry & Neurology Psychiatry
PROC: (CPT 90870; principal; 2023-05-13 07:30)
DX: F31.60 Bipolar disorder, current episode mixed, unspecified (principal); F90.9 Attention-deficit hyperactivity disorder, unspecified type; F41.9 Anxiety disorder, unspecified; F43.10 Post-traumatic stress disorder, unspecified; K21.9 Gastro-esophageal reflux disease without esophagitis; J45.909 Unspecified asthma, uncomplicated; Z79.51 Long term (current) use of inhaled steroids; Z79.899 Other long term (current) drug therapy; Z91.041 Radiographic dye allergy status; Z88.1 Allergy status to other antibiotic agents; Z88.2 Allergy status to sulfonamides; Z88.8 Allergy status to other drugs, medicaments and biological substances; L23.1 Allergic contact dermatitis due to adhesives
CPT/HCPCS: 90870; J0330; J2250; J2405

== ENCOUNTER 2023-05-27 06:27 | Day surgery (SDC) | payer OTHER, SELFPAY ==
[2023-05-27 06:35] VITALS: BP 114/61; PULSE 83; RESP 22; TEMP 36.3; O2SAT 100; BMI 19.8
--- NOTE | 2023-05-27 06:58 | P.CONAN_ITS ---
[facility] Active Problems Active Problems: All Active Problems (Updated 04/26/23 @ 15:25 by Robert Dunham MD) At high risk for breast cancer (Acute) Well woman exam with routine gynecological exam (Acute) History of HPV infection (Acute) Family history of breast cancer (Acute) Mastodynia of left breast (Acute) Bipolar 1 disorder (Acute) Past Medical History Medical History ADHD Anxiety Asthma Bipolar 1 disorder Depression Deviated septum GERD (gastroesophageal reflux disease) History of electroconvulsive therapy History of electroconvulsive therapy PTSD (post-traumatic stress disorder) Vasovagal episode Family History Family History Maternal Aunt Breast cancer, Onset Age: 35 Paternal Aunt Breast cancer, Onset Age: 44 Paternal Uncle Renal cancer Pancreatic cancer Family history of problems with anesthesia: No Surgical History Surgical History History of bunionectomy History of Problems with Anesthesia: No Social History Social History Household Members: None Housing: Apartment Are you a primary home care coordinator to a significant other at home: No Do you presently have visiting nurse or other home services: No Patient Tobacco Use Status: Never used Tobacco Second Hand Smoke Exposure: No Advance Directives: No Advance Directives Information Provided: Yes service: No Sexual orientation: Did not discuss. Meds Allergies Allergy/AdvReac Type Severity Reaction Status Date / Time Iodinated Contrast Media Allergy Severe Hives Verified 04/26/23 15:07 [Contrast Dye] bee pollen [BEE STINGS] Allergy Unknown anaphylaxis Verified 04/26/23 15:07 metaxalone [From Skelaxin] Allergy Unknown Unknown Verified 04/26/23 15:07 monocryl/vicryl sutures Allergy Unknown unknown Verified 04/26/23 15:07 morphine [MORPHINE] Allergy Unknown unknown Verified 04/26/23 15:07 moxifloxacin [From Avelox] Allergy Unknown Unknown Verified 04/26/23 15:07 orange [ORANGES] Allergy Unknown anaphylaxis Verified 04/26/23 15:07 red dye Allergy Unknown Hives Verified 04/26/23 15:07 Sulfa (Sulfonamide Allergy Unknown UNKNOWN Verified 04/26/23 15:07 Antibiotics) [SULFA (SULFONAMIDE ANTIBIOTICS)] venom-wasp Allergy Unknown Anaphylaxis Verified 04/26/23 15:07 lamotrigine [From Lamictal] AdvReac Intermediate hx of Verified 04/26/23 15:07 yennifer on doses greater that 200 mg Adhesive Bandages Allergy Unknown Hives Uncoded 04/26/23 15:07 lychees Allergy Unknown Hives Uncoded 04/26/23 15:07 Home Medications Medication Instructions Recorded Confirmed Last Taken Type albuterol 90 mcg/actuation aerosol mcg inhalation 08/12/20 04/26/23 08/26/20 History inhaler mcg cetirizine 10 mg tablet (Zyrtec) 10 mg PO DAILY 08/12/20 04/26/23 08/28/20 History clonazepam 1 mg tablet 1 mg PO DAILY 08/12/20 04/26/23 08/26/20 History 1 mg clozapine 50 mg tablet (Clozaril) 50 mg PO BID 08/12/20 04/26/23 08/28/20 History diphenhydramine HCl 50 mg capsule 50 mg PO TID PRN Allergy Symptoms 08/12/20 04/26/23 Unknown History (Banophen) epinephrine 0.1 mg/mL injection 0.1 mg IM Q30M PRN Allergic 08/12/20 04/26/23 08/26/20 History syringe Reaction 0.1 mg famotidine 40 mg tablet 40 mg PO BEDTIME 08/12/20 04/26/23 08/28/20 History fluticasone 100 mcg-salmeterol 50 1 inh inhalation BID 08/12/20 04/26/23 08/28/20 History mcg/dose blistr powdr for inhalation (Advair Diskus) fluticasone propionate 50 1 spray intranasal BID 08/12/20 04/26/23 08/28/20 History mcg/actuation nasal spray,suspension ipratropium 0.5 mg-albuterol 3 mg 3 ml inhalation QID 08/12/20 04/26/23 08/26/20 History (2.5 mg base)/3 mL nebulization 3 mL soln temazepam 30 mg capsule 30 mg PO BEDTIME PRN Insomnia 08/12/20 04/26/23 08/26/20 History 30 mg azelastine 137 mcg (0.1 %) nasal 2 spray intranasal BID 02/09/23 04/26/23 Unknown History spray aerosol cariprazine 6 mg capsule (Vraylar) 6 mg PO DAILY 02/09/23 04/26/23 Unknown History dextroamphetamine-amphetamine ER 30 mg PO DAILY 02/09/23 04/26/23 Unknown History 30 mg 24hr capsule,extend release (Adderall XR) hydroxyzine pamoate 50 mg capsule 50 mg PO TID 02/09/23 04/26/23 Unknown History (Vistaril) ipratropium bromide 21 mcg (0.03 2 spray intranasal BID 02/09/23 04/26/23 Unknown History %) nasal spray metoprolol tartrate 25 mg tablet 25 mg PO DAILY 02/09/23 04/26/23 Unknown History ondansetron HCl 8 mg tablet 8 mg PO Q8H 02/09/23 04/26/23 Unknown History trazodone 150 mg tablet 150 mg PO BEDTIME PRN 02/09/23 04/26/23 Unknown History Exam Exam Date and Time: May 27, 2023 0658 Height,Weight and Vital Signs: Height 5 ft 8 in Weight 58.967 kg Last Vital Signs Temp 97.3 F 05/27/23 06:35 Pulse 83 05/27/23 06:35 Resp 22 H 05/27/23 06:35 BP 114/61 05/27/23 06:35 Pulse Ox 100 05/27/23 06:35 O2 Del Method Room Air 05/27/23 06:35 Airway Mallampati Class: II TM Dist: >3cm Neck ROM: Full Assessment and Plan Assessment Anesthesia Assessment: Anesthesia Plan Discussed and Chart Reviewed Final Anesthetic Review Family History of Problems with Anesthesia: No History of Problems with Anesthesia: No NPO: Yes ASA Class: II Final Preanesthetic Review: No Changes in Pt Med Stat, Meds/Allgs Chart Reviewed, Consent Obtained/Reviewed and Anes Risks/Benef Reviewed Patient Risk: Low Procedure Risk: Low Anesthetic Plan Anesthetic Plan: GA Disposition: Standard PACU
--- NOTE | 2023-05-27 07:11 | MHC.SHP ---
Pre-Procedural Eval Section A Date of Service: 05/27/23 The patient is an INPATIENT: No Changes since office visit: Yes Patient answered all questions; No Cold of Flu in the past 2 weeks, No New Medical Problems and No Changes in Medication The History & Physical has been completed within 30 days and I have reviewed it.: Yes Section B Chief Complaint: Major depressive disorder, recurrent, severe with Details of Present Illness: bipolar yennifer Relevant Family History (Specify if Yes): No Relevant Social History: None Present Medications: see Short Stay Collaborative assessment Medical History: No relevant PMH History of Previous Operations: Relevant previous surgery/procedure and date(s) (Recurrent ECT) Allergies: Allergies Allergy/AdvReac Type Severity Reaction Status Date / Time Iodinated Contrast Media Allergy Severe Hives Verified 04/26/23 15:07 [Contrast Dye] bee pollen [BEE STINGS] Allergy Unknown anaphylaxis Verified 04/26/23 15:07 metaxalone [From Skelaxin] Allergy Unknown Unknown Verified 04/26/23 15:07 monocryl/vicryl sutures Allergy Unknown unknown Verified 04/26/23 15:07 morphine [MORPHINE] Allergy Unknown unknown Verified 04/26/23 15:07 moxifloxacin [From Avelox] Allergy Unknown Unknown Verified 04/26/23 15:07 orange [ORANGES] Allergy Unknown anaphylaxis Verified 04/26/23 15:07 red dye Allergy Unknown Hives Verified 04/26/23 15:07 Sulfa (Sulfonamide Allergy Unknown UNKNOWN Verified 04/26/23 15:07 Antibiotics) [SULFA (SULFONAMIDE ANTIBIOTICS)] venom-wasp Allergy Unknown Anaphylaxis Verified 04/26/23 15:07 lamotrigine [From Lamictal] AdvReac Intermediate hx of Verified 04/26/23 15:07 yennifer on doses greater that 200 mg Adhesive Bandages Allergy Unknown Hives Uncoded 04/26/23 15:07 lychees Allergy Unknown Hives Uncoded 04/26/23 15:07 Review of Systems Sugical H&P ROS: Negative: Constitution, Cardiovascular, Respiratory, Neurological, Hem-Onc, Allergic/Immunologic, Gastrointestinal, Genitourinary, Musculoskeletal, Integumentary, Endocrine and Eyes/Ears/Nose/Throat and Yes, Specify: Psychiatric (pressured expansive ) Exam Surgical H&P Exam: Normal: Heart, Normal: Lungs (clear) and Normal: Neurological Plan Diagnosis/Plan: Unchanged I have reviewed the history and physical and performed a pertinent physical examination on my patient. No changes have occurred unless specified.pt manic euphoric Time Spent With Patient Time: Total time managing care of this patient today ___30_ minutes.
--- NOTE | 2023-05-27 07:11 | HO.ECTPROC ---
ECT Procedure Note Diagnosis/Treatment Date of Service: 05/27/23 Diagnosis: Bipolar disorder Previous ECT Date: 05/13/23 Treatment: Maintenance Interval Clinical Notes: pt with rapid cyclingdysphoric with racing thoughts had pre tx anxiety flashbacks to last tx Time: Total time managing care of this patient today30 ____ minutes. ECT Settings Device: THYMATRON DGx Electrode Placement: Right Unilateral Program/Pulse Width: 0.25 Energy Percent: 30 Seizure Duration By EEG (in seconds): 68 Medications Administration General Anesthetic: Methohexital (100) Muscle Relaxant: Succinylcholine (80) Ancillary Medications Analgesics: Torodol - Pre ECT Anti-emetics: Zofran - Pre ECT Miscillaneous Medications: Propofol Airway Management Airway Management: Bag Mask Ventilation Treatment Recommendations No Changes Recommended: No change Electrode Placement: Right Unilateral Program/Pulse Width: 0.25 Notes: ongoing well with brevital cont tx has manic sx racing thoughts =pressured euphoric Pt Tolerated Procedure w/o Issue: Yes
[2023-05-27 07:33] VITALS: BP 108/60; PULSE 66; RESP 18; TEMP 36.3; O2SAT 100
[2023-05-27 07:38] VITALS: BP 95/53; PULSE 72; RESP 20; O2SAT 97
[2023-05-27 07:43] VITALS: BP 112/73; PULSE 82; RESP 19; O2SAT 98
[2023-05-27] MEDS: Acetaminophen 325 MG TABLET 650 MG PO (07:47)
[2023-05-27] MEDS: oxyCODONE HCl Immed Release 5 MG TABLET 10 MG PO (07:47)
[2023-05-27 07:48] VITALS: BP 103/56; PULSE 97; RESP 18; O2SAT 98
[2023-05-27 08:03] VITALS: BP 123/39; PULSE 85; RESP 20; TEMP 36.3; O2SAT 100
== END 2023-05-27 08:25 | disposition home or self-care (01) ==
PROVIDERS: PCP Internal Medicine; Visit Provider Psychiatry & Neurology Psychiatry
PROC: (CPT 90870; principal; 2023-05-27 07:00)
DX: F31.2 Bipolar disorder, current episode manic severe with psychotic features (principal); F90.9 Attention-deficit hyperactivity disorder, unspecified type; F41.9 Anxiety disorder, unspecified; F43.10 Post-traumatic stress disorder, unspecified; K21.9 Gastro-esophageal reflux disease without esophagitis; J45.909 Unspecified asthma, uncomplicated; Z79.51 Long term (current) use of inhaled steroids; Z79.899 Other long term (current) drug therapy; Z91.041 Radiographic dye allergy status; Z88.1 Allergy status to other antibiotic agents; Z88.2 Allergy status to sulfonamides; Z88.8 Allergy status to other drugs, medicaments and biological substances; L23.1 Allergic contact dermatitis due to adhesives
CPT/HCPCS: 90870; J0330; J2405

== ENCOUNTER → 2023-05-27 06:27 | Outpatient (BNV) | payer OTHER, SELFPAY | PROVIDERS: PCP Internal Medicine; Visit Provider Psychiatry & Neurology Psychiatry | DX: F31.9 Bipolar disorder, unspecified (principal) | CPT/HCPCS: 90870 ==

== ENCOUNTER 2023-06-03 08:08 | Day surgery (SDC) | payer OTHER, SELFPAY ==
[2023-06-03 08:32] VITALS: BP 117/43; PULSE 81; RESP 18; TEMP 37; O2SAT 99; BMI 19.8
--- NOTE | 2023-06-03 08:55 | MHC.SHP ---
Pre-Procedural Eval Section A Date of Service: 06/03/23 The patient is an INPATIENT: No Changes since office visit: Yes Patient answered all questions; No Cold of Flu in the past 2 weeks, No New Medical Problems and No Changes in Medication The History & Physical has been completed within 30 days and I have reviewed it.: Yes Section B Chief Complaint: depression Details of Present Illness: rapid cycling Relevant Family History (Specify if Yes): No Relevant Social History: None Present Medications: see Short Stay Collaborative assessment Medical History: No relevant PMH History of Previous Operations: Relevant previous surgery/procedure and date(s) (Recurrent ECT) Allergies: Allergies Allergy/AdvReac Type Severity Reaction Status Date / Time Iodinated Contrast Media Allergy Severe Hives Verified 04/26/23 15:07 [Contrast Dye] bee pollen [BEE STINGS] Allergy Unknown anaphylaxis Verified 04/26/23 15:07 metaxalone [From Skelaxin] Allergy Unknown Unknown Verified 04/26/23 15:07 monocryl/vicryl sutures Allergy Unknown unknown Verified 04/26/23 15:07 morphine [MORPHINE] Allergy Unknown unknown Verified 04/26/23 15:07 moxifloxacin [From Avelox] Allergy Unknown Unknown Verified 04/26/23 15:07 orange [ORANGES] Allergy Unknown anaphylaxis Verified 04/26/23 15:07 red dye Allergy Unknown Hives Verified 04/26/23 15:07 Sulfa (Sulfonamide Allergy Unknown UNKNOWN Verified 04/26/23 15:07 Antibiotics) [SULFA (SULFONAMIDE ANTIBIOTICS)] venom-wasp Allergy Unknown Anaphylaxis Verified 04/26/23 15:07 lamotrigine [From Lamictal] AdvReac Intermediate hx of Verified 04/26/23 15:07 yennifer on doses greater that 200 mg Adhesive Bandages Allergy Unknown Hives Uncoded 04/26/23 15:07 lychees Allergy Unknown Hives Uncoded 04/26/23 15:07 Review of Systems Sugical H&P ROS: Negative: Constitution, Cardiovascular, Respiratory, Neurological, Hem-Onc, Allergic/Immunologic, Gastrointestinal, Genitourinary, Musculoskeletal, Integumentary, Endocrine and Eyes/Ears/Nose/Throat and Yes, Specify: Psychiatric (pressured expansive ) Exam Surgical H&P Exam: Normal: Heart, Normal: Lungs (clear) and Normal: Neurological Plan Diagnosis/Plan: Unchanged I have reviewed the history and physical and performed a pertinent physical examination on my patient. No changes have occurred unless specified. Time Spent With Patient Time: Total time managing care of this patient today ____ minutes.
[2023-06-03 11:01] VITALS: BP 110/60; PULSE 70; RESP 16; TEMP 37.1; O2SAT 96
[2023-06-03 11:06] VITALS: BP 108/59; PULSE 87; RESP 16; O2SAT 98
[2023-06-03 11:11] VITALS: BP 106/62; PULSE 90; RESP 12; O2SAT 99
[2023-06-03 11:16] VITALS: BP 107/53; PULSE 98; RESP 20; O2SAT 99
[2023-06-03] MEDS: Acetaminophen 325 MG TABLET 650 MG PO (11:27)
[2023-06-03] MEDS: oxyCODONE HCl Immed Release 5 MG TABLET 10 MG PO (11:28)
[2023-06-03 11:31] VITALS: BP 113/63; PULSE 78; RESP 20; TEMP 36.6; O2SAT 100
--- NOTE | 2023-06-03 12:16 | HO.ECTPROC ---
ECT Procedure Note Diagnosis/Treatment Date of Service: 06/03/23 Diagnosis: Bipolar disorder Previous ECT Date: 05/13/23 Treatment: Maintenance Interval Clinical Notes: ? 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 Time: Total time managing care of this patient today ____ minutes. ECT Settings Device: THYMATRON DGx Electrode Placement: Right Unilateral Program/Pulse Width: 0.25 Energy Percent: 30 Seizure Duration By EEG (in seconds): 96 Medications Administration General Anesthetic: Methohexital (100) Muscle Relaxant: Succinylcholine (80) Ancillary Medications Analgesics: Torodol - Pre ECT Anti-emetics: Zofran - Pre ECT Miscillaneous Medications: Propofol Airway Management Airway Management: Bag Mask Ventilation Treatment Recommendations No Changes Recommended: No change Electrode Placement: Right Unilateral Program/Pulse Width: 0.25 Notes: Continue to balance ongoing ECT with needs of educational program and memory. Patient states she has been doing well program generally. 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 We did have somewhat of a discussion after this this should be pursued Pt Tolerated Procedure w/o Issue: Yes
== END 2023-06-03 12:09 | disposition home or self-care (01) ==
PROVIDERS: PCP Internal Medicine; Visit Provider Psychiatry & Neurology Psychiatry
PROC: (CPT 90870; principal; 2023-06-03 15:00)
DX: F31.9 Bipolar disorder, unspecified (principal); F33.3 Major depressive disorder, recurrent, severe with psychotic symptoms; J45.909 Unspecified asthma, uncomplicated; F43.10 Post-traumatic stress disorder, unspecified; Z88.2 Allergy status to sulfonamides; Z88.8 Allergy status to other drugs, medicaments and biological substances
CPT/HCPCS: 90870; J0330; J2405

== ENCOUNTER → 2023-06-03 08:08 | Outpatient (BNV) | payer OTHER, SELFPAY | PROVIDERS: PCP Internal Medicine; Visit Provider Psychiatry & Neurology Psychiatry | DX: F31.9 Bipolar disorder, unspecified (principal) | CPT/HCPCS: 90870 ==

== ENCOUNTER → 2023-06-24 13:21 | Outpatient (REF) | payer OTHER, SELFPAY ==
--- NOTE | 2023-06-24 13:48 | ECG_ITS ---
Test Reason : preproc exam Blood Pressure : / mmHG Vent. Rate : 088 BPM Atrial Rate : 088 BPM P-R Int : 134 ms QRS Dur : 078 ms QT Int : 378 ms P-R-T Axes : 064 059 055 degrees QTc Int : 457 ms Normal sinus rhythm Normal ECG When compared with ECG of 08-DEC-2022 15:50, No significant change was found Referred By: Brook Malik Electronically Signed By:Arnold Acevedo
== END ==
LOC: HO.CARD 13:21
PROVIDERS: Visit Provider Internal Medicine
DX: Z01.810 Encounter for preprocedural cardiovascular examination (principal)
CPT/HCPCS: 93005

== ENCOUNTER → 2023-06-24 13:48 | Outpatient (BNV) | payer OTHER, SELFPAY | PROVIDERS: Visit Provider Internal Medicine Cardiovascular Disease | DX: Z01.818 Encounter for other preprocedural examination (principal) | CPT/HCPCS: 93010 ==

== ENCOUNTER 2023-07-08 06:07 | Day surgery (SDC) | payer OTHER, SELFPAY ==
[2023-07-08 06:30] VITALS: BP 110/86; PULSE 102; RESP 20; TEMP 37; O2SAT 96; BMI 19.5
--- NOTE | 2023-07-08 07:04 | MHC.SHP ---
Pre-Procedural Eval Section A Date of Service: 07/08/23 The patient is an INPATIENT: No Changes since office visit: No Cold of Flu in the past 2 weeks, No New Medical Problems, No Changes in Medication and No Patient answered all questions The History & Physical has been completed within 30 days and I have reviewed it.: Yes Section B Chief Complaint: bipolar disorder Details of Present Illness: Long hx of bipolar and cluster B traits. Relevant Family History (Specify if Yes): Yes Relevant Social History: None Present Medications: see Short Stay Collaborative assessment Medical History: No relevant PMH Allergies: Allergies Allergy/AdvReac Type Severity Reaction Status Date / Time Iodinated Contrast Media Allergy Severe Hives Verified 04/26/23 15:07 [Contrast Dye] bee pollen [BEE STINGS] Allergy Unknown anaphylaxis Verified 04/26/23 15:07 metaxalone [From Skelaxin] Allergy Unknown Unknown Verified 04/26/23 15:07 monocryl/vicryl sutures Allergy Unknown unknown Verified 04/26/23 15:07 morphine [MORPHINE] Allergy Unknown unknown Verified 04/26/23 15:07 moxifloxacin [From Avelox] Allergy Unknown Unknown Verified 04/26/23 15:07 orange [ORANGES] Allergy Unknown anaphylaxis Verified 04/26/23 15:07 red dye Allergy Unknown Hives Verified 04/26/23 15:07 Sulfa (Sulfonamide Allergy Unknown UNKNOWN Verified 04/26/23 15:07 Antibiotics) [SULFA (SULFONAMIDE ANTIBIOTICS)] venom-wasp Allergy Unknown Anaphylaxis Verified 04/26/23 15:07 lamotrigine [From Lamictal] AdvReac Intermediate hx of Verified 04/26/23 15:07 yennifer on doses greater that 200 mg Adhesive Bandages Allergy Unknown Hives Uncoded 04/26/23 15:07 lychees Allergy Unknown Hives Uncoded 04/26/23 15:07 Review of Systems Sugical H&P ROS: Negative: Constitution, Cardiovascular, Respiratory, Neurological, Psychiatric, Hem-Onc, Allergic/Immunologic, Gastrointestinal, Genitourinary, Musculoskeletal, Integumentary, Endocrine and Eyes/Ears/Nose/Throat Exam Surgical H&P Exam: Normal: HEENT, Normal: Heart, Normal: Lungs, Normal: Extremities, Normal: Abdomen, Normal: Skin and Normal: Neurological Plan Diagnosis/Plan: Unchanged I have reviewed the history and physical and performed a pertinent physical examination on my patient. No changes have occurred unless specified. Time Spent With Patient Time: Total time managing care of this patient today __15__ minutes.
--- NOTE | 2023-07-08 07:37 | HO.ECTPROC ---
ECT Procedure Note Diagnosis/Treatment Date of Service: 07/08/23 Diagnosis: Bipolar disorder Previous ECT Date: 06/03/23 Treatment: Maintenance Interval Clinical Notes: The patient is hypomanic with very fast speech and flight of ideas. She had a couple of superficial scratches on her right forearm. She denied suicidal thoughts at this moment. Time: Total time managing care of this patient today __30__ minutes. ECT Settings Device: THYMATRON DGx Electrode Placement: Right Unilateral Program/Pulse Width: 0.25 Energy Percent: 30 Seizure Duration By EEG (in seconds): 61 By Motor Observation (in seconds): 31 Medications Administration General Anesthetic: Methohexital (100) Muscle Relaxant: Succinylcholine (100) Ancillary Medications Analgesics: Torodol - Pre ECT Anti-emetics: Zofran - Pre ECT Miscillaneous Medications: Propofol Airway Management Airway Management: Bag Mask Ventilation Treatment Recommendations No Changes Recommended: No change Notes: Probably, the patient would benefit of more frequent ECT, we will discuss the case with Dr. Barbosa, her primary psychiatrist in the community. Pt Tolerated Procedure w/o Issue: Yes
[2023-07-08 07:41] VITALS: BP 120/68; PULSE 70; RESP 16; TEMP 36.7; O2SAT 98
[2023-07-08 07:46] VITALS: BP 128/78; PULSE 94; RESP 23; O2SAT 99
[2023-07-08 07:51] VITALS: BP 120/62; PULSE 93; RESP 24; O2SAT 99
[2023-07-08 07:56] VITALS: BP 123/77; PULSE 112; RESP 12; O2SAT 100
[2023-07-08] MEDS: oxyCODONE HCl Immed Release 5 MG TABLET 10 MG PO (08:09)
[2023-07-08] MEDS: Acetaminophen 325 MG TABLET 650 MG PO (08:10)
[2023-07-08 08:11] VITALS: BP 122/73; PULSE 99; RESP 17; TEMP 36.7; O2SAT 99
== END 2023-07-08 08:40 | disposition home or self-care (01) ==
PROVIDERS: PCP Internal Medicine; Visit Provider Psychiatry & Neurology Psychiatry
PROC: (CPT 90870; principal; 2023-07-08 07:30)
DX: F31.0 Bipolar disorder, current episode hypomanic (principal); R47.89 Other speech disturbances; F60.89 Other specific personality disorders; Z88.2 Allergy status to sulfonamides; Z88.5 Allergy status to narcotic agent; Z88.8 Allergy status to other drugs, medicaments and biological substances; Z91.041 Radiographic dye allergy status
CPT/HCPCS: 90870; J0330; J2405

== ENCOUNTER → 2023-07-08 06:07 | Outpatient (BNV) | payer OTHER, SELFPAY | PROVIDERS: PCP Internal Medicine; Visit Provider Psychiatry & Neurology Psychiatry | DX: F33.3 Major depressive disorder, recurrent, severe with psychotic symptoms (principal) | CPT/HCPCS: 90870 ==

== ENCOUNTER 2023-08-22 11:50 | Outpatient (REF) | payer OTHER, SELFPAY ==
--- NOTE | ~2023-08-22 | MR_ITS ---
EXAMINATION: MR BREAST WITHOUT AND WITH CONTRAST, BILATERAL CLINICAL INFORMATION: High-risk screening. Lifetime risk of breast cancer based on the Luz Maria Marcos model is 29%. Family history of breast cancer. Several aunts with premenopausal breast cancer. COMPARISON: Mammography 04/13/2023. TECHNIQUE: Imaging was performed with a dedicated breast coil. Prior to the administration of contrast, bilateral axial T1 and bilateral axial T2 weighted sequences were obtained. After the uneventful administration of?6 mL of Gadavist, dynamic contrast-enhanced VIBRANT series through the breasts in the axial plane were performed. Subtracted images were performed and reviewed. A delayed sagittal sequence through both breasts was acquired. Additionally, CAD post-processing, including maximum intensity projections, 3-D reconstructions and kinetic analysis, were performed an independent workstation and reviewed by the interpreting radiologist is a portion of this exam. FINDINGS: The breasts are comprised of scattered fibroglandular elements. The tissue undergoes moderate background enhancement. LEFT BREAST: A 10 mm linear ductal nonmass enhancement at 10 o'clock (series 101 image 47/102) 8 cm from the nipple. Finding is T2 isointense. Type I and type II plateau enhancement kinetics. No mammographic correlate. MR-guided core biopsy is advised. A 5 mm T2 bright nonenhancing left breast mass at 3 o'clock (series 5 image 23/36), 2.5 cm from the nipple, most consistent with a cyst. No additional findings on volume renderings or kinetic analysis. RIGHT BREAST: No suspicious masslike or non-masslike enhancement. No abnormal skin thickening or nipple retraction. No abnormal architectural distortion. Review of the T2 weighted images demonstrates no fibrocystic changes or dilated ducts. Review of kinetic images reveals no additional findings. There is no suspicious internal mammary chain or axillary adenopathy. Limited views of the chest and abdomen are unremarkable. MR/MR breast BI wo/w con IMPRESSION: There is a 10 mm linear ductal nonmass enhancement in the left breast at 10 o'clock. MR-guided core biopsy is advised in this high-risk patient. ASSESSMENT: LEFT BREAST: BI-RADS 4 - Suspicious finding. RIGHT BREAST: BI-RADS 1 - Negative. RECOMMENDATIONS: MR-guided core biopsy left breast nonmass enhancement 10 o'clock. Recommendation given to Chasidy MARQUES on 08/25/23 @ 3:31pm. ANNEMARIE Simmons
== END 2023-08-22 11:51 | disposition home or self-care (01) ==
LOC: HO.MRI 11:50
PROVIDERS: PCP Internal Medicine; Visit Provider Surgery
DX: Z91.89 Other specified personal risk factors, not elsewhere classified (principal); Z80.3 Family history of malignant neoplasm of breast
CPT/HCPCS: 77049; A9585

== ENCOUNTER 2023-12-07 06:22 | Day surgery (SDC) | payer OTHER, SELFPAY ==
[2023-12-07] VITALS (8 sets, daily range): BP systolic 108–145; BP diastolic 66–96; PULSE 77–112; RESP 12–22; TEMP 36.1–37.6; O2SAT 98–100; BMI 20.5
[2023-12-07 07:12] LABS: Urine Pregnancy NEGATIVE (NEGATIVE)
[2023-12-07 07:13] LABS: UPreg QC Valid YES
--- NOTE | 2023-12-07 08:16 | MHC.SHP ---
Pre-Procedural Eval Section A Date of Service: 12/07/23 The patient is an INPATIENT: No Changes since office visit: No Cold of Flu in the past 2 weeks, No New Medical Problems, No Changes in Medication and No Patient answered all questions The History & Physical has been completed within 30 days and I have reviewed it.: No Section B Chief Complaint: Major depressive disorder, recurrent, severe with Details of Present Illness: Long hx of bipolar and cluster B traits.Has been rapid cycling returns to ect Relevant Family History (Specify if Yes): Yes Relevant Social History: None Present Medications: see Short Stay Collaborative assessment Medical History: No relevant PMH Allergies: Allergies Allergy/AdvReac Type Severity Reaction Status Date / Time Iodinated Contrast Media Allergy Severe Hives Verified 04/26/23 15:07 [Contrast Dye] bee pollen [BEE STINGS] Allergy Unknown anaphylaxis Verified 04/26/23 15:07 metaxalone [From Skelaxin] Allergy Unknown Unknown Verified 04/26/23 15:07 monocryl/vicryl sutures Allergy Unknown unknown Verified 04/26/23 15:07 morphine [MORPHINE] Allergy Unknown unknown Verified 04/26/23 15:07 moxifloxacin [From Avelox] Allergy Unknown Unknown Verified 04/26/23 15:07 orange [ORANGES] Allergy Unknown anaphylaxis Verified 04/26/23 15:07 red dye Allergy Unknown Hives Verified 04/26/23 15:07 Sulfa (Sulfonamide Allergy Unknown UNKNOWN Verified 04/26/23 15:07 Antibiotics) [SULFA (SULFONAMIDE ANTIBIOTICS)] venom-wasp Allergy Unknown Anaphylaxis Verified 04/26/23 15:07 lamotrigine [From Lamictal] AdvReac Intermediate hx of Verified 04/26/23 15:07 yennifer on doses greater that 200 mg Adhesive Bandages Allergy Unknown Hives Uncoded 04/26/23 15:07 lychees Allergy Unknown Hives Uncoded 04/26/23 15:07 Review of Systems Sugical H&P ROS: Negative: Neurological and Yes, Specify: Respiratory (recent covid had inc sob asthma ) and Psychiatric (rapid cycling irritability ) Exam Surgical H&P Exam: Normal: Heart (rr mild tachycardia no m), Normal: Lungs (clear ) and Normal: Neurological Plan Diagnosis/Plan: Unchanged I have reviewed the history and physical and performed a pertinent physical examination on my patient. No changes have occurred unless specified. Time Spent With Patient Time: Total time managing care of this patient today ____ minutes.
--- NOTE | 2023-12-07 08:18 | HO.ECTPROC ---
ECT Procedure Note Diagnosis/Treatment Date of Service: 12/07/23 Diagnosis: Bipolar disorder Previous ECT Date: 06/03/23 Current Treatment Number: 1 Treatment: Maintenance Interval Clinical Notes: Patient is pressured labile somewhat agitated complaining of severe mood lability and irritability denies active SI Time: Total time managing care of this patient today 30____ minutes. ECT Settings Device: THYMATRON DGx Electrode Placement: Right Unilateral Program/Pulse Width: 0.25 Energy Percent: 35 Seizure Duration By EEG (in seconds): 33 Medications Administration General Anesthetic: Methohexital (100) Muscle Relaxant: Succinylcholine (100) Ancillary Medications Analgesics: Torodol - Pre ECT Anti-emetics: Zofran - Pre ECT Miscillaneous Medications: Propofol Airway Management Airway Management: Bag Mask Ventilation Treatment Recommendations No Changes Recommended: No change Notes: Patient agreeable to possible mini series will schedule ECT 126 24 would probably benefit from increase clozapine but states she can not tolerate the dose does not want to be on lithium complains of side effects. Did have some transient ectopy CBC metabolic profile ordered was unremarkable EKG unremarkable Pt Tolerated Procedure w/o Issue: Yes
--- NOTE | 2023-12-07 08:35 | ECG_ITS ---
Test Reason : S/P ECT, ECTOPY Blood Pressure : / mmHG Vent. Rate : 096 BPM Atrial Rate : 096 BPM P-R Int : 128 ms QRS Dur : 074 ms QT Int : 356 ms P-R-T Axes : 051 052 062 degrees QTc Int : 449 ms Normal sinus rhythm Normal ECG When compared with ECG of 24-JUN-2023 13:47, No significant change was found Referred By: Robel Mena Electronically Signed By:Arnold Acevedo
[2023-12-07] MEDS: oxyCODONE HCl Immed Release 5 MG TABLET 10 MG PO (08:46)
[2023-12-07] MEDS: Acetaminophen 325 MG TABLET 650 MG PO (08:47)
[2023-12-07 09:46] LABS: MANUAL DIFF FLAG NO
[2023-12-07 09:52] LABS: Basophils Absolute Auto 0.1 X10*3/uL (0.0-0.2); Eosinophils Absolute Auto 0.1 X10*3/uL (0.0-0.4); Eosinophils Percent Auto 1.5 % (0-4); Hematocrit 34.4 % (37.0-47.0); Hemoglobin 11.5 g/dl (12.0-16.0); Imm Gran Abs Auto 0.01 X10*3/uL (0.00-0.03); Imm Gran Pct Auto 0.1 % (0.0-0.4); Lymphocytes Absolute Auto 1.2 X10*3/uL (1.2-4.9); Lymphocytes Percent Auto 17.2 % (20-40); Mean Corpuscular HGB Conc 33.4 g/dl (31.0-35.0); Mean Corpuscular Hemoglobin 29.2 pg (27.0-33.0); Mean Corpuscular Volume 87.3 fL (80.0-98.0); Mean Platelet Volume 9.7 fL (9.4-12.3); Monocytes Absolute Auto 0.6 X10*3/uL (0.1-1.2); Monocytes Percent Auto 8.5 % (2-11); Neutrophils Absolute Auto 5.1 x10*3/uL (2.0-8.3); Neutrophils Percent Auto 71.7 % (45-73); Platelet Count 261 X10*3/uL (160-400); Red Blood Count 3.94 X10*6/uL (4.20-5.50); Red Cell Distribution Width 13.1 % (11.0-16.0); White Blood Count 7.2 X10*3/uL (4.8-10.8)
[2023-12-07 10:21] LABS: Alanine Aminotransferase 19 U/L (0-31); Albumin Level 3.8 g/dL (3.5-5.0); Alkaline Phosphatase 31 U/L (39-117); Anion Gap 11 (12-20); Aspartate Amino Transferase 30 U/L (5-31); Bilirubin Total 0.2 mg/dL (0.0-1.0); Blood Urea Nitrogen 9 mg/dL (9-16); Calcium 9.1 mg/dL (8.4-10.2); Carbon Dioxide 24 mmol/L (22-29); Chloride 107 mmol/L (96-108); Estimated Glomerular Filt Rate > 60; Glucose Random 118 mg/dL (60-115); Potassium 4.3 mmol/L (3.3-5.1); Sodium 138 mmol/L (135-145)
[2023-12-07 11:55] LABS: TSH reflex Free T4 2.63 uIU/mL (0.32-4.0)
== END 2023-12-07 10:04 | disposition home or self-care (01) ==
PROVIDERS: PCP Internal Medicine; Visit Provider Psychiatry & Neurology Psychiatry
PROC: (CPT 90870; principal; 2023-12-07 16:00)
DX: F31.9 Bipolar disorder, unspecified (principal); F39 Unspecified mood [affective] disorder
CPT/HCPCS: 36415; 80053; 81025; 84443; 85025; 90870; 93005; J0330; J2405; J2704

== ENCOUNTER → 2023-12-07 06:22 | Outpatient (BNV) | payer OTHER, SELFPAY | PROVIDERS: PCP Internal Medicine; Visit Provider Psychiatry & Neurology Psychiatry | DX: F33.3 Major depressive disorder, recurrent, severe with psychotic symptoms (principal) | CPT/HCPCS: 90870 ==

== ENCOUNTER → 2023-12-07 08:35 | Outpatient (BNV) | payer OTHER, SELFPAY | PROVIDERS: PCP Internal Medicine; Visit Provider Internal Medicine Cardiovascular Disease | DX: Z51.81 Encounter for therapeutic drug level monitoring (principal); F33.3 Major depressive disorder, recurrent, severe with psychotic symptoms | CPT/HCPCS: 93010 ==

== ENCOUNTER 2023-12-09 06:28 | Day surgery (SDC) | payer OTHER, SELFPAY ==
[2023-12-09] VITALS (7 sets, daily range): BP systolic 115–137; BP diastolic 72–86; PULSE 84–109; RESP 15–22; TEMP 36.6–37.5; O2SAT 95–100; BMI 19.5
--- NOTE | 2023-12-09 06:59 | P.CONAN_ITS ---
[facility] Active Problems Active Problems: All Active Problems (Updated 08/26/23 @ 10:51 by Martin German RN) Abnormal MRI, breast (Acute) At high risk for breast cancer (Acute) Well woman exam with routine gynecological exam (Acute) History of HPV infection (Acute) Family history of breast cancer (Acute) Mastodynia of left breast (Acute) Bipolar 1 disorder (Acute) Past Medical History Medical History ADHD Anxiety Asthma Bipolar 1 disorder Depression Deviated septum GERD (gastroesophageal reflux disease) History of electroconvulsive therapy History of electroconvulsive therapy PTSD (post-traumatic stress disorder) Vasovagal episode Family History Family History Maternal Aunt Breast cancer, Onset Age: 35 Paternal Aunt Breast cancer, Onset Age: 44 Paternal Uncle Renal cancer Pancreatic cancer Family history of problems with anesthesia: No Surgical History Surgical History History of bunionectomy History of Problems with Anesthesia: No Social History Social History Household Members: None Housing: Apartment Are you a primary team primary care physician to a significant other at home: No Do you presently have visiting nurse or other home services: No Comment: patient medicated for BARKER pain. Written on discharge instructions for home Patient Tobacco Use Status: Never used Tobacco Second Hand Smoke Exposure: No Advance Directives: No Advance Directives Information Provided: Yes service: No Sexual orientation: Did not discuss. Meds Allergies Allergy/AdvReac Type Severity Reaction Status Date / Time Iodinated Contrast Media Allergy Severe Hives Verified 04/26/23 15:07 [Contrast Dye] bee pollen [BEE STINGS] Allergy Unknown anaphylaxis Verified 04/26/23 15:07 metaxalone [From Skelaxin] Allergy Unknown Unknown Verified 04/26/23 15:07 monocryl/vicryl sutures Allergy Unknown unknown Verified 04/26/23 15:07 morphine [MORPHINE] Allergy Unknown unknown Verified 04/26/23 15:07 moxifloxacin [From Avelox] Allergy Unknown Unknown Verified 04/26/23 15:07 orange [ORANGES] Allergy Unknown anaphylaxis Verified 04/26/23 15:07 red dye Allergy Unknown Hives Verified 04/26/23 15:07 Sulfa (Sulfonamide Allergy Unknown UNKNOWN Verified 04/26/23 15:07 Antibiotics) [SULFA (SULFONAMIDE ANTIBIOTICS)] venom-wasp Allergy Unknown Anaphylaxis Verified 04/26/23 15:07 lamotrigine [From Lamictal] AdvReac Intermediate hx of Verified 04/26/23 15:07 yennifer on doses greater that 200 mg Adhesive Bandages Allergy Unknown Hives Uncoded 04/26/23 15:07 lychees Allergy Unknown Hives Uncoded 04/26/23 15:07 Home Medications Medication Instructions Recorded Confirmed Last Taken Type albuterol 90 mcg/actuation aerosol mcg inhalation 08/12/20 04/26/23 08/26/20 History inhaler mcg cetirizine 10 mg tablet (Zyrtec) 10 mg PO DAILY 08/12/20 04/26/23 08/28/20 History clonazepam 1 mg tablet 1 mg PO DAILY 08/12/20 04/26/23 08/26/20 History 1 mg clozapine 50 mg tablet (Clozaril) 50 mg PO BID 08/12/20 04/26/23 08/28/20 H istory diphenhydramine HCl 50 mg capsule 50 mg PO TID PRN Allergy Symptoms 08/12/20 04/26/23 Unknown History (Banophen) epinephrine 0.1 mg/mL injection 0.1 mg IM Q30M PRN Allergic 08/12/20 04/26/23 08/26/20 History syringe Reaction 0.1 mg famotidine 40 mg tablet 40 mg PO BEDTIME 08/12/20 04/26/23 08/28/20 History fluticasone 100 mcg-salmeterol 50 1 inh inhalation BID 08/12/20 04/26/23 08/28/20 History mcg/dose blistr powdr for inhalation (Advair Diskus) fluticasone propionate 50 1 spray intranasal BID 08/12/20 04/26/23 08/28/20 History mcg/actuation nasal spray,suspension ipratropium 0.5 mg-albuterol 3 mg 3 ml inhalation QID 08/12/20 04/26/23 08/26/20 History (2.5 mg base)/3 mL nebulization 3 mL soln temazepam 30 mg capsule 30 mg PO BEDTIME PRN Insomnia 08/12/20 04/26/23 08/26/20 History 30 mg azelastine 137 mcg (0.1 %) nasal 2 spray intranasal BID 02/09/23 04/26/23 Unknown History spray aerosol cariprazine 6 mg capsule (Vraylar) 6 mg PO DAILY 02/09/23 04/26/23 Unknown History dextroamphetamine-amphetamine ER 30 mg PO DAILY 02/09/23 04/26/23 Unknown History 30 mg 24hr capsule,extend release (Adderall XR) hydroxyzine pamoate 50 mg capsule 50 mg PO TID 02/09/23 04/26/23 Unknown History (Vistaril) ipratropium bromide 21 mcg (0.03 2 spray intranasal BID 02/09/23 04/26/23 Unknown History %) nasal spray metoprolol tartrate 25 mg tablet 25 mg PO DAILY 02/09/23 04/26/23 Unknown History ondansetron HCl 8 mg tablet 8 mg PO Q8H 02/09/23 04/26/23 Unknown History trazodone 150 mg tablet 150 mg PO BEDTIME PRN 02/09/23 04/26/23 Unknown History Exam Height,Weight and Vital Signs: Height 5 ft 8 in Weight 58.06 kg Last Vital Signs Temp 98.4 F 12/09/23 06:45 Pulse 109 H 12/09/23 06:45 Resp 22 H 12/09/23 06:45 BP 126/85 12/09/23 06:45 Pulse Ox 100 12/09/23 06:45 O2 Del Method Room Air 12/09/23 06:45 Airway Mallampati Class: II TM Dist: >3cm Neck ROM: Full Heart: rrr Lungs: cta Assessment and Plan Assessment Anesthesia Assessment: Anesthesia Plan Discussed and Chart Reviewed Final Anesthetic Review Family History of Problems with Anesthesia: No History of Problems with Anesthesia: No NPO: Yes ASA Class: III Final Preanesthetic Review: No Changes in Pt Med Stat, Meds/Allgs Chart Reviewed and Consent Obtained/Reviewed Patient Risk: Intermediate Procedure Risk: Intermediate Anesthetic Plan Anesthetic Plan: GA Disposition: Standard PACU
--- NOTE | 2023-12-09 07:23 | MHC.SHP ---
Pre-Procedural Eval Section A Date of Service: 12/09/23 The patient is an INPATIENT: No Changes since office visit: Yes Cold of Flu in the past 2 weeks, Yes New Medical Problems, Yes Changes in Medication and Yes Patient answered all questions The History & Physical has been completed within 30 days and I have reviewed it.: Yes Section B Chief Complaint: Major depressive disorder, recurrent, severe with Details of Present Illness: Chronic hypomania, no safety concerns at this moment. Relevant Family History (Specify if Yes): Yes Relevant Social History: None Present Medications: see Short Stay [facility] assessment Medical History: No relevant PMH History of Previous Operations: Relevant previous surgery/procedure and date(s) Allergies: Allergies Allergy/AdvReac Type Severity Reaction Status Date / Time Iodinated Contrast Media Allergy Severe Hives Verified 04/26/23 15:07 [Contrast Dye] bee pollen [BEE STINGS] Allergy Unknown anaphylaxis Verified 04/26/23 15:07 metaxalone [From Skelaxin] Allergy Unknown Unknown Verified 04/26/23 15:07 monocryl/vicryl sutures Allergy Unknown unknown Verified 04/26/23 15:07 morphine [MORPHINE] Allergy Unknown unknown Verified 04/26/23 15:07 moxifloxacin [From Avelox] Allergy Unknown Unknown Verified 04/26/23 15:07 orange [ORANGES] Allergy Unknown anaphylaxis Verified 04/26/23 15:07 red dye Allergy Unknown Hives Verified 04/26/23 15:07 Sulfa (Sulfonamide Allergy Unknown UNKNOWN Verified 04/26/23 15:07 Antibiotics) [SULFA (SULFONAMIDE ANTIBIOTICS)] venom-wasp Allergy Unknown Anaphylaxis Verified 04/26/23 15:07 lamotrigine [From Lamictal] AdvReac Intermediate hx of Verified 04/26/23 15:07 yennifer on doses greater that 200 mg Adhesive Bandages Allergy Unknown Hives Uncoded 04/26/23 15:07 lychees Allergy Unknown Hives Uncoded 04/26/23 15:07 Review of Systems Sugical H&P ROS: Negative: Constitution, Cardiovascular, Respiratory, Neurological, Psychiatric, Hem-Onc, Allergic/Immunologic, Gastrointestinal, Genitourinary, Musculoskeletal, Integumentary, Endocrine and Eyes/Ears/Nose/Throat Exam Surgical H&P Exam: Normal: HEENT, Normal: Heart, Normal: Lungs, Normal: Extremities, Normal: Abdomen, Normal: Skin and Normal: Neurological Plan Diagnosis/Plan: Unchanged I have reviewed the history and physical and performed a pertinent physical examination on my patient. No changes have occurred unless specified. Time Spent With Patient Time: Total time managing care of this patient today __15__ minutes.
[2023-12-09] MEDS: Acetaminophen 325 MG TABLET 650 MG PO (08:32)
[2023-12-09] MEDS: oxyCODONE HCl Immed Release 5 MG TABLET 10 MG PO (08:32)
--- NOTE | 2023-12-14 07:46 | HO.ECTPROC ---
ECT Procedure Note Diagnosis/Treatment Date of Service: 12/09/23 Diagnosis: Bipolar disorder Treatment: Maintenance Interval Clinical Notes: pt with rapid cycling doing better ect generally lido 20 mg very effective Time: Total time managing care of this patient today ____ minutes. ECT Settings Device: THYMATRON DGx Electrode Placement: Right Unilateral Program/Pulse Width: 0.25 Energy Percent: 40 Seizure Duration By EEG (in seconds): 87 Medications Administration General Anesthetic: Methohexital (100) and Other Muscle Relaxant: Succinylcholine (100) Ancillary Medications Anti-emetics: Zofran - Pre ECT Miscillaneous Medications: Propofol Airway Management Airway Management: Bag Mask Ventilation Treatment Recommendations Energy Percent: 30 Notes: cont lidocaine
== END 2023-12-09 09:19 | disposition home or self-care (01) ==
PROVIDERS: PCP Internal Medicine; Visit Provider Psychiatry & Neurology Psychiatry
PROC: (CPT 90870; principal; 2023-12-09 10:00)
DX: F31.60 Bipolar disorder, current episode mixed, unspecified (principal); F90.9 Attention-deficit hyperactivity disorder, unspecified type; F41.9 Anxiety disorder, unspecified; J45.909 Unspecified asthma, uncomplicated; F43.10 Post-traumatic stress disorder, unspecified; Z79.51 Long term (current) use of inhaled steroids; Z79.899 Other long term (current) drug therapy; Z88.5 Allergy status to narcotic agent; Z80.3 Family history of malignant neoplasm of breast; Z88.1 Allergy status to other antibiotic agents; Z88.2 Allergy status to sulfonamides; Z91.041 Radiographic dye allergy status; L23.1 Allergic contact dermatitis due to adhesives
CPT/HCPCS: 90870; J0330; J2405; J2704

== ENCOUNTER → 2023-12-09 06:28 | Outpatient (BNV) | payer OTHER, SELFPAY | PROVIDERS: PCP Internal Medicine; Visit Provider Psychiatry & Neurology Psychiatry | DX: F33.3 Major depressive disorder, recurrent, severe with psychotic symptoms (principal) | CPT/HCPCS: 90870 ==

== ENCOUNTER 2023-12-14 06:23 | Day surgery (SDC) | payer OTHER, SELFPAY ==
[2023-12-14] VITALS (8 sets, daily range): BP systolic 99–118; BP diastolic 54–77; PULSE 70–99; RESP 16; TEMP 36.4–37.3; O2SAT 99–100; BMI 20.7
--- NOTE | 2023-12-14 06:57 | HO.ANESPROP2 ---
[facility] Active Problems Active Problems: All Active Problems (Updated 08/26/23 @ 10:51 by Martin German RN) Abnormal MRI, breast (Acute) At high risk for breast cancer (Acute) Well woman exam with routine gynecological exam (Acute) History of HPV infection (Acute) Family history of breast cancer (Acute) Mastodynia of left breast (Acute) Bipolar 1 disorder (Acute) Past Medical History Medical History ADHD Anxiety Asthma Bipolar 1 disorder Depression Deviated septum GERD (gastroesophageal reflux disease) History of electroconvulsive therapy History of electroconvulsive therapy PTSD (post-traumatic stress disorder) Vasovagal episode Family History Family History Maternal Aunt Breast cancer, Onset Age: 35 Paternal Aunt Breast cancer, Onset Age: 44 Paternal Uncle Renal cancer Pancreatic cancer Family history of problems with anesthesia: No Surgical History Surgical History History of bunionectomy History of Problems with Anesthesia: No Social History Social History Household Members: None Housing: Apartment Are you a primary resident care associate to a significant other at home: No Do you presently have visiting nurse or other home services: No Comment: patient medicated for BARKER pain. Written on discharge instructions for home Patient Tobacco Use Status: Never used Tobacco Second Hand Smoke Exposure: No Are you DNR?: No Advance Directives: No Advance Directives Information Provided: Yes service: No Sexual orientation: Did not discuss. Meds Allergies Allergy/AdvReac Type Severity Reaction Status Date / Time Iodinated Contrast Media Allergy Severe Hives Verified 04/26/23 15:07 [Contrast Dye] bee pollen [BEE STINGS] Allergy Unknown anaphylaxis Verified 04/26/23 15:07 metaxalone [From Skelaxin] Allergy Unknown Unknown Verified 04/26/23 15:07 monocryl/vicryl sutures Allergy Unknown unknown Verified 04/26/23 15:07 morphine [MORPHINE] Allergy Unknown unknown Verified 04/26/23 15:07 moxifloxacin [From Avelox] Allergy Unknown Unknown Verified 04/26/23 15:07 orange [ORANGES] Allergy Unknown anaphylaxis Verified 04/26/23 15:07 red dye Allergy Unknown Hives Verified 04/26/23 15:07 Sulfa (Sulfonamide Allergy Unknown UNKNOWN Verified 04/26/23 15:07 Antibiotics) [SULFA (SULFONAMIDE ANTIBIOTICS)] venom-wasp Allergy Unknown Anaphylaxis Verified 04/26/23 15:07 lamotrigine [From Lamictal] AdvReac Intermediate hx of Verified 04/26/23 15:07 yennifer on doses greater that 200 mg Adhesive Bandages Allergy Unknown Hives Uncoded 04/26/23 15:07 lychees Allergy Unknown Hives Uncoded 04/26/23 15:07 Home Medications Medication Instructions Recorded Confirmed Last Taken Type albuterol 90 mcg/actuation aerosol mcg inhalation 08/12/20 04/26/23 08/26/20 History inhaler mcg cetirizine 10 mg tablet (Zyrtec) 10 mg PO DAILY 08/12/20 04/26/23 08/28/20 History clonazepam 1 mg tablet 1 mg PO DAILY 08/12/20 04/26/23 08/26/20 History 1 mg clozapine 50 mg tablet (Clozaril) 50 mg PO BID 08/12/20 04/26/23 08/28/20 History diphenhydramine HCl 50 mg capsule 50 mg PO TID PRN Allergy Symptoms 08/12/20 04/26/23 Unknown History (Banophen) epinephrine 0.1 mg/mL injection 0.1 mg IM Q30M PRN Allergic 08/12/20 04/26/23 08/26/20 History syringe Reaction 0.1 mg famotidine 40 mg tablet 40 mg PO BEDTIME 08/12/20 04/26/23 08/28/20 History fluticasone 100 mcg-salmeterol 50 1 inh inhalation BID 08/12/20 04/26/23 08/28/20 History mcg/dose blistr powdr for inhalation (Advair Diskus) fluticasone propionate 50 1 spray intranasal BID 08/12/20 04/26/23 08/28/20 History mcg/actuation nasal spray,suspension ipratropium 0.5 mg-albuterol 3 mg 3 ml inhalation QID 08/12/20 04/26/23 08/26/20 History (2.5 mg base)/3 mL nebulization 3 mL soln temazepam 30 mg capsule 30 mg PO BEDTIME PRN Insomnia 08/12/20 04/26/23 08/26/20 History 30 mg azelastine 137 mcg (0.1 %) nasal 2 spray intranasal BID 02/09/23 04/26/23 Unknown History spray aerosol cariprazine 6 mg capsule (Vraylar) 6 mg PO DAILY 02/09/23 04/26/23 Unknown History dextroamphetamine-amphetamine ER 30 mg PO DAILY 02/09/23 04/26/23 Unknown History 30 mg 24hr capsule,extend release (Adderall XR) hydroxyzine pamoate 50 mg capsule 50 mg PO TID 02/09/23 04/26/23 Unknown History (Vistaril) ipratropium bromide 21 mcg (0.03 2 spray intranasal BID 02/09/23 04/26/23 Unknown History %) nasal spray metoprolol tartrate 25 mg tablet 25 mg PO DAILY 02/09/23 04/26/23 Unknown History ondansetron HCl 8 mg tablet 8 mg PO Q8H 02/09/23 04/26/23 Unknown History trazodone 150 mg tablet 150 mg PO BEDTIME PRN 02/09/23 04/26/23 Unknown History Exam Height,Weight and Vital Signs: Height 5 ft 8 in Weight 61.689 kg Last Vital Signs Temp 97.5 F 12/14/23 06:50 Resp 16 12/14/23 06:50 O2 Del Method Room Air 12/14/23 06:50 Airway Mallampati Class: II TM Dist: >3cm Neck ROM: Full Heart: rrr Lungs: cta Assessment and Plan Assessment Anesthesia Assessment: Anesthesia Plan Discussed and Chart Reviewed Final Anesthetic Review Family History of Problems with Anesthesia: No History of Problems with Anesthesia: No NPO: Yes ASA Class: III Final Preanesthetic Review: No Changes in Pt Med Stat, Meds/Allgs Chart Reviewed and Consent Obtained/Reviewed Patient Risk: Intermediate Procedure Risk: Intermediate Anesthetic Plan Anesthetic Plan: GA Disposition: Standard PACU
[2023-12-14] MEDS: Lactated Ringers 1,000 ML 50 ML IVCONT (07:04)
--- NOTE | 2023-12-14 07:14 | MHC.SHP ---
Pre-Procedural Eval Section A - 24 Hr Update-Section A only Date of Service: 12/14/23 The patient is an INPATIENT: No Changes since office visit: Yes Patient answered all questions; No New Medical Problems and No Changes in Medication The patient has been examined within 24 hours of the surgical procedure. The History & Physical has been completed within 30 days and I have reviewed it.: Yes Section B - Complete if H&P > 30 days Chief Complaint: depression Allergies: Allergies Allergy/AdvReac Type Severity Reaction Status Date / Time Iodinated Contrast Media Allergy Severe Hives Verified 04/26/23 15:07 [Contrast Dye] bee pollen [BEE STINGS] Allergy Unknown anaphylaxis Verified 04/26/23 15:07 metaxalone [From Skelaxin] Allergy Unknown Unknown Verified 04/26/23 15:07 monocryl/vicryl sutures Allergy Unknown unknown Verified 04/26/23 15:07 morphine [MORPHINE] Allergy Unknown unknown Verified 04/26/23 15:07 moxifloxacin [From Avelox] Allergy Unknown Unknown Verified 04/26/23 15:07 orange [ORANGES] Allergy Unknown anaphylaxis Verified 04/26/23 15:07 red dye Allergy Unknown Hives Verified 04/26/23 15:07 Sulfa (Sulfonamide Allergy Unknown UNKNOWN Verified 04/26/23 15:07 Antibiotics) [SULFA (SULFONAMIDE ANTIBIOTICS)] venom-wasp Allergy Unknown Anaphylaxis Verified 04/26/23 15:07 lamotrigine [From Lamictal] AdvReac Intermediate hx of Verified 04/26/23 15:07 yennifer on doses greater that 200 mg Adhesive Bandages Allergy Unknown Hives Uncoded 04/26/23 15:07 lychees Allergy Unknown Hives Uncoded 04/26/23 15:07 Plan I have reviewed the history and physical and performed a pertinent physical examination on my patient. No changes have occurred unless specified. Time Spent With Patient Time: Total time managing care of this patient today ____ minutes.
[2023-12-14 07:34] LABS: UPreg QC Valid YES; Urine Pregnancy NEGATIVE (NEGATIVE)
--- NOTE | 2023-12-14 07:46 | HO.ECTPROC ---
ECT Procedure Note Diagnosis/Treatment Date of Service: 12/14/23 Diagnosis: Bipolar disorder Treatment: Maintenance Interval Clinical Notes: Pt seems less labile no c/o side effects Time: Total time managing care of this patient today _30___ minutes. ECT Settings Device: THYMATRON DGx Electrode Placement: Right Unilateral Program/Pulse Width: 0.25 Energy Percent: 30 Seizure Duration By EEG (in seconds): 74 Medications Administration General Anesthetic: Methohexital (100plus 20 lidocaine) Muscle Relaxant: Succinylcholine (100) Ancillary Medications Anti-emetics: Zofran - Pre ECT Miscillaneous Medications: Propofol Airway Management Airway Management: Bag Mask Ventilation Treatment Recommendations Energy Percent: 20 Notes: Did well with 20 mg lidocaine seems more stable with ECT no complaints of side effects less labile improved sleep Pt Tolerated Procedure w/o Issue: Yes
[2023-12-14] MEDS: Acetaminophen 325 MG TABLET 650 MG PO (08:10)
[2023-12-14] MEDS: oxyCODONE HCl Immed Release 5 MG TABLET 10 MG PO (08:11)
== END 2023-12-14 09:23 | disposition home or self-care (01) ==
PROVIDERS: PCP Internal Medicine; Visit Provider Psychiatry & Neurology Psychiatry
PROC: (CPT 90870; principal; 2023-12-14 08:00)
DX: F31.9 Bipolar disorder, unspecified (principal); F90.9 Attention-deficit hyperactivity disorder, unspecified type; F41.9 Anxiety disorder, unspecified; J45.909 Unspecified asthma, uncomplicated; F43.10 Post-traumatic stress disorder, unspecified; Z79.51 Long term (current) use of inhaled steroids; Z79.899 Other long term (current) drug therapy; Z88.5 Allergy status to narcotic agent; Z80.3 Family history of malignant neoplasm of breast; Z88.1 Allergy status to other antibiotic agents; Z88.2 Allergy status to sulfonamides; Z91.041 Radiographic dye allergy status; L23.1 Allergic contact dermatitis due to adhesives
CPT/HCPCS: 81025; 90870; J0330; J2405; J2704

== ENCOUNTER → 2023-12-14 06:23 | Outpatient (BNV) | payer OTHER, SELFPAY | PROVIDERS: PCP Internal Medicine; Visit Provider Psychiatry & Neurology Psychiatry | DX: F33.3 Major depressive disorder, recurrent, severe with psychotic symptoms (principal) | CPT/HCPCS: 90870 ==

== ENCOUNTER 2023-12-21 06:12 | Day surgery (SDC) | payer OTHER, SELFPAY ==
[2023-12-21] VITALS (8 sets, daily range): BP systolic 94–115; BP diastolic 47–71; PULSE 68–87; RESP 18–23; TEMP 36.9–37.3; O2SAT 100; BMI 20.4
--- NOTE | 2023-12-21 06:56 | HO.ANESPROP2 ---
[facility] Active Problems Active Problems: All Active Problems (Updated 08/26/23 @ 10:51 by Martin German RN) Abnormal MRI, breast (Acute) At high risk for breast cancer (Acute) Well woman exam with routine gynecological exam (Acute) History of HPV infection (Acute) Family history of breast cancer (Acute) Mastodynia of left breast (Acute) Bipolar 1 disorder (Acute) Past Medical History Medical History ADHD Anxiety Asthma Bipolar 1 disorder Depression Deviated septum GERD (gastroesophageal reflux disease) History of electroconvulsive therapy History of electroconvulsive therapy PTSD (post-traumatic stress disorder) Vasovagal episode Family History Family History Maternal Aunt Breast cancer, Onset Age: 35 Paternal Aunt Breast cancer, Onset Age: 44 Paternal Uncle Renal cancer Pancreatic cancer Family history of problems with anesthesia: No Surgical History Surgical History History of bunionectomy History of Problems with Anesthesia: No Social History Social History Household Members: None Housing: Apartment Are you a primary child care supervisor to a significant other at home: No Do you presently have visiting nurse or other home services: No Comment: patient medicated for BARKER pain. Written on discharge instructions for home Patient Tobacco Use Status: Never used Tobacco Second Hand Smoke Exposure: No Advance Directives: No Advance Directives Information Provided: Yes service: No Sexual orientation: Did not discuss. Meds Allergies Allergy/AdvReac Type Severity Reaction Status Date / Time Iodinated Contrast Media Allergy Severe Hives Verified 04/26/23 15:07 [Contrast Dye] bee pollen [BEE STINGS] Allergy Unknown anaphylaxis Verified 04/26/23 15:07 metaxalone [From Skelaxin] Allergy Unknown Unknown Verified 04/26/23 15:07 monocryl/vicryl sutures Allergy Unknown unknown Verified 04/26/23 15:07 morphine [MORPHINE] Allergy Unknown unknown Verified 04/26/23 15:07 moxifloxacin [From Avelox] Allergy Unknown Unknown Verified 04/26/23 15:07 orange [ORANGES] Allergy Unknown anaphylaxis Verified 04/26/23 15:07 red dye Allergy Unknown Hives Verified 04/26/23 15:07 Sulfa (Sulfonamide Allergy Unknown UNKNOWN Verified 04/26/23 15:07 Antibiotics) [SULFA (SULFONAMIDE ANTIBIOTICS)] venom-wasp Allergy Unknown Anaphylaxis Verified 04/26/23 15:07 lamotrigine [From Lamictal] AdvReac Intermediate hx of Verified 04/26/23 15:07 yennifer on doses greater that 200 mg Adhesive Bandages Allergy Unknown Hives Uncoded 04/26/23 15:07 lychees Allergy Unknown Hives Uncoded 04/26/23 15:07 Home Medications Medication Instructions Recorded Confirmed Last Taken Type albuterol 90 mcg/actuation aerosol mcg inhalation 08/12/20 04/26/23 08/26/20 History inhaler mcg cetirizine 10 mg tablet (Zyrtec) 10 mg PO DAILY 08/12/20 04/26/23 08/28/20 History clonazepam 1 mg tablet 1 mg PO DAILY 08/12/20 04/26/23 08/26/20 History 1 mg clozapine 50 mg tablet (Clozaril) 50 mg PO BID 08/12/20 04/26/23 08/28/20 History diphenhydramine HCl 50 mg capsule 50 mg PO TID PRN Allergy Symptoms 08/12/20 04/26/23 Unknown History (Banophen) epinephrine 0.1 mg/mL injection 0.1 mg IM Q30M PRN Allergic 08/12/20 04/26/23 08/26/20 History syringe Reaction 0.1 mg famotidine 40 mg tablet 40 mg PO BEDTIME 08/12/20 04/26/23 08/28/20 History fluticasone 100 mcg-salmeterol 50 1 inh inhalation BID 08/12/20 04/26/23 08/28/20 History mcg/dose blistr powdr for inhalation (Advair Diskus) fluticasone propionate 50 1 spray intranasal BID 08/12/20 04/26/23 08/28/20 History mcg/actuation nasal spray,suspension ipratropium 0.5 mg-albuterol 3 mg 3 ml inhalation QID 08/12/20 04/26/23 08/26/20 History (2.5 mg base)/3 mL nebulization 3 mL soln temazepam 30 mg capsule 30 mg PO BEDTIME PRN Insomnia 08/12/20 04/26/23 08/26/20 History 30 mg azelastine 137 mcg (0.1 %) nasal 2 spray intranasal BID 02/09/23 04/26/23 Unknown History spray aerosol cariprazine 6 mg capsule (Vraylar) 6 mg PO DAILY 02/09/23 04/26/23 Unknown History dextroamphetamine-amphetamine ER 30 mg PO DAILY 02/09/23 04/26/23 Unknown History 30 mg 24hr capsule,extend release (Adderall XR) hydroxyzine pamoate 50 mg capsule 50 mg PO TID 02/09/23 04/26/23 Unknown History (Vistaril) ipratropium bromide 21 mcg (0.03 2 spray intranasal BID 02/09/23 04/26/23 Unknown History %) nasal spray metoprolol tartrate 25 mg tablet 25 mg PO DAILY 02/09/23 04/26/23 Unknown History ondansetron HCl 8 mg tablet 8 mg PO Q8H 02/09/23 04/26/23 Unknown History trazodone 150 mg tablet 150 mg PO BEDTIME PRN 02/09/23 04/26/23 Unknown History Exam Airway Mallampati Class: II TM Dist: >3cm Neck ROM: Full Heart: rrr Lungs: cta Assessment and Plan Assessment Anesthesia Assessment: Anesthesia Plan Discussed and Chart Reviewed Final Anesthetic Review Family History of Problems with Anesthesia: No History of Problems with Anesthesia: No NPO: Yes ASA Class: III Final Preanesthetic Review: No Changes in Pt Med Stat, Meds/Allgs Chart Reviewed and Consent Obtained/Reviewed Patient Risk: Intermediate Procedure Risk: Intermediate Anesthetic Plan Anesthetic Plan: GA Disposition: Standard PACU
--- NOTE | 2023-12-21 07:43 | MHC.SHP ---
Pre-Procedural Eval Section A - 24 Hr Update-Section A only Date of Service: 12/21/23 The patient is an INPATIENT: No Changes since office visit: No Cold of Flu in the past 2 weeks, No New Medical Problems, No Changes in Medication and No Patient answered all questions The patient has been examined within 24 hours of the surgical procedure. The History & Physical has been completed within 30 days and I have reviewed it.: Yes Section B - Complete if H&P > 30 days Chief Complaint: depression Allergies: Allergies Allergy/AdvReac Type Severity Reaction Status Date / Time Iodinated Contrast Media Allergy Severe Hives Verified 04/26/23 15:07 [Contrast Dye] bee pollen [BEE STINGS] Allergy Unknown anaphylaxis Verified 04/26/23 15:07 metaxalone [From Skelaxin] Allergy Unknown Unknown Verified 04/26/23 15:07 monocryl/vicryl sutures Allergy Unknown unknown Verified 04/26/23 15:07 morphine [MORPHINE] Allergy Unknown unknown Verified 04/26/23 15:07 moxifloxacin [From Avelox] Allergy Unknown Unknown Verified 04/26/23 15:07 orange [ORANGES] Allergy Unknown anaphylaxis Verified 04/26/23 15:07 red dye Allergy Unknown Hives Verified 04/26/23 15:07 Sulfa (Sulfonamide Allergy Unknown UNKNOWN Verified 04/26/23 15:07 Antibiotics) [SULFA (SULFONAMIDE ANTIBIOTICS)] venom-wasp Allergy Unknown Anaphylaxis Verified 04/26/23 15:07 lamotrigine [From Lamictal] AdvReac Intermediate hx of Verified 04/26/23 15:07 yennifer on doses greater that 200 mg Adhesive Bandages Allergy Unknown Hives Uncoded 04/26/23 15:07 lychees Allergy Unknown Hives Uncoded 04/26/23 15:07 Plan I have reviewed the history and physical and performed a pertinent physical examination on my patient. No changes have occurred unless specified. Time Spent With Patient Time: Total time managing care of this patient today ____ minutes.
--- NOTE | 2023-12-21 07:45 | HO.ECTPROC ---
ECT Procedure Note Diagnosis/Treatment Date of Service: 12/21/23 Diagnosis: Bipolar disorder Previous ECT Date: 12/14/23 Treatment: Maintenance Interval Clinical Notes: The patient reported fast cycling episodes with episodes of irritability and dysphoria. She looks more depressed, no fast speech as usual. No changes on her medications recently, she complaints of poor sleep. No side effects with previous ECT. ECT done as usual, no complications, woke up well as usual. Time: Total time managing care of this patient today __30__ minutes. ECT Settings Device: THYMATRON DGx Electrode Placement: Right Unilateral Program/Pulse Width: 0.25 Energy Percent: 30 Seizure Duration By EEG (in seconds): 87 By Motor Observation (in seconds): 0 Medications Administration General Anesthetic: Methohexital (100 mg, adding Lidocaine before) Muscle Relaxant: Succinylcholine (100) Ancillary Medications Anti-emetics: Zofran - Pre ECT Miscillaneous Medications: Propofol Airway Management Airway Management: Bag Mask Ventilation Treatment Recommendations No Changes Recommended: No change Pt Tolerated Procedure w/o Issue: Yes
[2023-12-21] MEDS: Acetaminophen 325 MG TABLET 650 MG PO (09:21)
[2023-12-21] MEDS: oxyCODONE HCl Immed Release 5 MG TABLET 10 MG PO (09:22)
== END 2023-12-21 10:19 | disposition home or self-care (01) ==
PROVIDERS: PCP Internal Medicine; Visit Provider Psychiatry & Neurology Psychiatry
PROC: (CPT 90870; principal; 2023-12-21 08:00)
DX: F31.9 Bipolar disorder, unspecified (principal); R45.4 Irritability and anger; G47.9 Sleep disorder, unspecified; F90.9 Attention-deficit hyperactivity disorder, unspecified type; J45.909 Unspecified asthma, uncomplicated; F43.10 Post-traumatic stress disorder, unspecified; K21.9 Gastro-esophageal reflux disease without esophagitis; Z79.51 Long term (current) use of inhaled steroids; Z79.899 Other long term (current) drug therapy; Z88.5 Allergy status to narcotic agent; Z80.3 Family history of malignant neoplasm of breast; Z88.1 Allergy status to other antibiotic agents; Z88.2 Allergy status to sulfonamides; Z91.041 Radiographic dye allergy status; L23.1 Allergic contact dermatitis due to adhesives
CPT/HCPCS: 90870; J0330; J1596; J1805; J2405; J2704

== ENCOUNTER → 2023-12-21 06:12 | Outpatient (BNV) | payer OTHER, SELFPAY | PROVIDERS: PCP Internal Medicine; Visit Provider Psychiatry & Neurology Psychiatry | DX: F33.3 Major depressive disorder, recurrent, severe with psychotic symptoms (principal) | CPT/HCPCS: 90870 ==

== ENCOUNTER 2024-01-04 06:12 | Day surgery (SDC) | payer OTHER, SELFPAY ==
[2024-01-04] VITALS (9 sets, daily range): BP systolic 101–125; BP diastolic 58–78; PULSE 60–88; RESP 15–24; TEMP 36.6–36.9; O2SAT 99–100; BMI 20.4
--- NOTE | 2024-01-04 07:24 | MHC.SHP ---
Pre-Procedural Eval Section A - 24 Hr Update-Section A only Date of Service: 01/04/24 The patient is an INPATIENT: No Changes since office visit: No Cold of Flu in the past 2 weeks, No New Medical Problems, No Changes in Medication and No Patient answered all questions The patient has been examined within 24 hours of the surgical procedure. The History & Physical has been completed within 30 days and I have reviewed it.: Yes Section B - Complete if H&P > 30 days Chief Complaint: depression Details of Present Illness: bipolar rapid cycling hx suicide attempt/recent physical reviewed Relevant Social History: None Present Medications: see Short Stay Collaborative assessment History of Previous Operations: Relevant previous surgery/procedure and date(s) (ect) Allergies: Allergies Allergy/AdvReac Type Severity Reaction Status Date / Time Iodinated Contrast Media Allergy Severe Hives Verified 04/26/23 15:07 [Contrast Dye] bee pollen [BEE STINGS] Allergy Unknown anaphylaxis Verified 04/26/23 15:07 metaxalone [From Skelaxin] Allergy Unknown Unknown Verified 04/26/23 15:07 monocryl/vicryl sutures Allergy Unknown unknown Verified 04/26/23 15:07 morphine [MORPHINE] Allergy Unknown unknown Verified 04/26/23 15:07 moxifloxacin [From Avelox] Allergy Unknown Unknown Verified 04/26/23 15:07 orange [ORANGES] Allergy Unknown anaphylaxis Verified 04/26/23 15:07 red dye Allergy Unknown Hives Verified 04/26/23 15:07 Sulfa (Sulfonamide Allergy Unknown UNKNOWN Verified 04/26/23 15:07 Antibiotics) [SULFA (SULFONAMIDE ANTIBIOTICS)] venom-wasp Allergy Unknown Anaphylaxis Verified 04/26/23 15:07 lamotrigine [From Lamictal] AdvReac Intermediate hx of Verified 04/26/23 15:07 yennifer on doses greater that 200 mg Adhesive Bandages Allergy Unknown Hives Uncoded 04/26/23 15:07 lychees Allergy Unknown Hives Uncoded 04/26/23 15:07 Review of Systems Sugical H&P ROS: Negative: Constitution, Cardiovascular and Respiratory and Yes, Specify: Psychiatric (cycling no si) Exam Surgical H&P Exam: Normal: HEENT, Normal: Heart, Normal: Lungs and Normal: Neurological Plan Diagnosis/Plan: Unchanged I have reviewed the history and physical and performed a pertinent physical examination on my patient. No changes have occurred unless specified. Time Spent With Patient Time: Total time managing care of this patient today ____ minutes.
--- NOTE | 2024-01-04 07:53 | P.CONAN_ITS ---
[facility] Active Problems Active Problems: All Active Problems (Updated 08/26/23 @ 10:51 by Martin German RN) Abnormal MRI, breast (Acute) At high risk for breast cancer (Acute) Well woman exam with routine gynecological exam (Acute) History of HPV infection (Acute) Family history of breast cancer (Acute) Mastodynia of left breast (Acute) Bipolar 1 disorder (Acute) Past Medical History Medical History ADHD Anxiety Asthma Bipolar 1 disorder Depression Deviated septum GERD (gastroesophageal reflux disease) History of electroconvulsive therapy History of electroconvulsive therapy PTSD (post-traumatic stress disorder) Vasovagal episode Family History Family History Maternal Aunt Breast cancer, Onset Age: 35 Paternal Aunt Breast cancer, Onset Age: 44 Paternal Uncle Renal cancer Pancreatic cancer Family history of problems with anesthesia: No Surgical History Surgical History History of bunionectomy History of Problems with Anesthesia: No Social History Social History Household Members: None Housing: Apartment Are you a primary aged or disabled carer to a significant other at home: No Do you presently have visiting nurse or other home services: No Comment: medicated in PACU Patient Tobacco Use Status: Never used Tobacco Second Hand Smoke Exposure: No Advance Directives: No Advance Directives Information Provided: Yes service: No Sexual orientation: Did not discuss. Meds Allergies Allergy/AdvReac Type Severity Reaction Status Date / Time Iodinated Contrast Media Allergy Severe Hives Verified 04/26/23 15:07 [Contrast Dye] bee pollen [BEE STINGS] Allergy Unknown anaphylaxis Verified 04/26/23 15:07 metaxalone [From Skelaxin] Allergy Unknown Unknown Verified 04/26/23 15:07 monocryl/vicryl sutures Allergy Unknown unknown Verified 04/26/23 15:07 morphine [MORPHINE] Allergy Unknown unknown Verified 04/26/23 15:07 moxifloxacin [From Avelox] Allergy Unknown Unknown Verified 04/26/23 15:07 orange [ORANGES] Allergy Unknown anaphylaxis Verified 04/26/23 15:07 red dye Allergy Unknown Hives Verified 04/26/23 15:07 Sulfa (Sulfonamide Allergy Unknown UNKNOWN Verified 04/26/23 15:07 Antibiotics) [SULFA (SULFONAMIDE ANTIBIOTICS)] venom-wasp Allergy Unknown Anaphylaxis Verified 04/26/23 15:07 lamotrigine [From Lamictal] AdvReac Intermediate hx of Verified 04/26/23 15:07 yennifer on doses greater that 200 mg Adhesive Bandages Allergy Unknown Hives Uncoded 04/26/23 15:07 lychees Allergy Unknown Hives Uncoded 04/26/23 15:07 Home Medications Medication Instructions Recorded Confirmed Last Taken Type albuterol 90 mcg/actuation aerosol mcg inhalation 08/12/20 04/26/23 08/26/20 History inhaler mcg cetirizine 10 mg tablet (Zyrtec) 10 mg PO DAILY 08/12/20 04/26/23 08/28/20 History clonazepam 1 mg tablet 1 mg PO DAILY 08/12/20 04/26/23 08/26/20 History 1 mg clozapine 50 mg tablet (Clozaril) 50 mg PO BID 08/12/20 04/26/23 08/28/20 History diphenhydramine HCl 50 mg capsule 50 mg PO TID PRN Allergy Symptoms 08/12/20 04/26/23 Unknown History (Banophen) epinephrine 0.1 mg/mL injection 0.1 mg IM Q30M PRN Allergic 08/12/20 04/26/23 08/26/20 History syringe Reaction 0.1 mg famotidine 40 mg tablet 40 mg PO BEDTIME 08/12/20 04/26/23 08/28/20 History fluticasone 100 mcg-salmeterol 50 1 inh inhalation BID 08/12/20 04/26/23 08/28/20 History mcg/dose blistr powdr for inhalation (Advair Diskus) fluticasone propionate 50 1 spray intranasal BID 08/12/20 04/26/23 08/28/20 History mcg/actuation nasal spray,suspension ipratropium 0.5 mg-albuterol 3 mg 3 ml inhalation QID 08/12/20 04/26/23 08/26/20 History (2.5 mg base)/3 mL nebulization 3 mL soln temazepam 30 mg capsule 30 mg PO BEDTIME PRN Insomnia 08/12/20 04/26/23 08/26/20 History 30 mg azelastine 137 mcg (0.1 %) nasal 2 spray intranasal BID 02/09/23 04/26/23 Unknown History spray aerosol cariprazine 6 mg capsule (Vraylar) 6 mg PO DAILY 02/09/23 04/26/23 Unknown History dextroamphetamine-amphetamine ER 30 mg PO DAILY 02/09/23 04/26/23 Unknown History 30 mg 24hr capsule,extend release (Adderall XR) hydroxyzine pamoate 50 mg capsule 50 mg PO TID 02/09/23 04/26/23 Unknown History (Vistaril) ipratropium bromide 21 mcg (0.03 2 spray intranasal BID 02/09/23 04/26/23 Unknown History %) nasal spray metoprolol tartrate 25 mg tablet 25 mg PO DAILY 02/09/23 04/26/23 Unknown History ondansetron HCl 8 mg tablet 8 mg PO Q8H 02/09/23 04/26/23 Unknown History trazodone 150 mg tablet 150 mg PO BEDTIME PRN 02/09/23 04/26/23 Unknown History Exam Height,Weight and Vital Signs: Height 5 ft 8 in Weight 60.781 kg Last Vital Signs Temp 98.5 F 01/04/24 06:45 Pulse 87 01/04/24 06:45 Resp 20 01/04/24 06:45 BP 125/78 01/04/24 06:45 Pulse Ox 100 01/04/24 06:45 O2 Del Method Room Air 01/04/24 06:45 Airway Mallampati Class: II TM Dist: >3cm Neck ROM: Full Assessment and Plan Assessment Anesthesia Assessment: Anesthesia Plan Discussed and Chart Reviewed Final Anesthetic Review Family History of Problems with Anesthesia: No History of Problems with Anesthesia: No NPO: Yes ASA Class: II Final Preanesthetic Review: No Changes in Pt Med Stat, Meds/Allgs Chart Reviewed, Consent Obtained/Reviewed and Anes Risks/Benef Reviewed Patient Risk: Low Procedure Risk: Intermediate Anesthetic Plan Anesthetic Plan: GA Disposition: Standard PACU
[2024-01-04] MEDS: Acetaminophen 325 MG TABLET 650 MG PO (09:05)
[2024-01-04] MEDS: oxyCODONE HCl Immed Release 5 MG TABLET 10 MG PO (09:05)
--- NOTE | 2024-01-04 21:57 | HO.ECTPROC ---
ECT Procedure Note Diagnosis/Treatment Date of Service: 01/04/24 Diagnosis: Bipolar disorder Previous ECT Date: 12/21/23 Treatment: Maintenance Interval Clinical Notes: Patient remains with some degree of cycling mood anxious mildly expansive no SI has generally felt more stable some vulnerability noted did have a date and felt someone understood by male friend. Past suicide attempt regarding relational issue she does feel somewhat vulnerable but states she has felt more stable feels ECT has been helpful Time: Total time managing care of this patient today ____ minutes. ECT Settings Device: THYMATRON DGx Electrode Placement: Right Unilateral Program/Pulse Width: 0.25 Energy Percent: 20 Seizure Duration By EEG (in seconds): 60 Medications Administration General Anesthetic: Methohexital (100 mg, adding Lidocaine before 20 mg) Muscle Relaxant: Succinylcholine (100) Ancillary Medications Anti-emetics: Zofran - Pre ECT Miscillaneous Medications: Propofol Airway Management Airway Management: Bag Mask Ventilation Treatment Recommendations No Changes Recommended: No change Notes: gets oxycodone 5 mg po sent to pharmacy Pt Tolerated Procedure w/o Issue: Yes
== END 2024-01-04 09:30 | disposition home or self-care (01) ==
PROVIDERS: PCP Internal Medicine; Visit Provider Psychiatry & Neurology Psychiatry
PROC: (CPT 90870; principal; 2024-01-04 08:30)
DX: F33.2 Major depressive disorder, recurrent severe without psychotic features (principal); F34.0 Cyclothymic disorder; F41.8 Other specified anxiety disorders; F90.9 Attention-deficit hyperactivity disorder, unspecified type; F43.10 Post-traumatic stress disorder, unspecified; J45.909 Unspecified asthma, uncomplicated; Z79.51 Long term (current) use of inhaled steroids; Z79.899 Other long term (current) drug therapy; Z88.1 Allergy status to other antibiotic agents; Z88.2 Allergy status to sulfonamides; Z88.5 Allergy status to narcotic agent; Z91.041 Radiographic dye allergy status; L23.1 Allergic contact dermatitis due to adhesives; Z88.8 Allergy status to other drugs, medicaments and biological substances
CPT/HCPCS: 90870; J0330; J2405; J2704

== ENCOUNTER → 2024-01-04 06:12 | Outpatient (BNV) | payer OTHER, SELFPAY | PROVIDERS: PCP Internal Medicine; Visit Provider Psychiatry & Neurology Psychiatry | DX: F33.3 Major depressive disorder, recurrent, severe with psychotic symptoms (principal) | CPT/HCPCS: 90870 ==

== ENCOUNTER 2024-01-20 06:09 | Day surgery (SDC) | payer OTHER, SELFPAY ==
[2024-01-20] VITALS (7 sets, daily range): BP systolic 114–167; BP diastolic 66–85; PULSE 60–82; RESP 16–71; TEMP 36.3–37.3; O2SAT 97–100; BMI 19.9
--- NOTE | 2024-01-20 07:55 | MHC.SHP ---
Pre-Procedural Eval Section A - 24 Hr Update-Section A only Date of Service: 01/20/24 The patient is an INPATIENT: No Changes since office visit: No Cold of Flu in the past 2 weeks, No New Medical Problems, No Changes in Medication and No Patient answered all questions The patient has been examined within 24 hours of the surgical procedure. The History & Physical has been completed within 30 days and I have reviewed it.: Yes Section B - Complete if H&P > 30 days Chief Complaint: depression Details of Present Illness: bipolar rapid cycling hx suicide attempt/recent physical reviewed Relevant Social History: None Present Medications: see Short Stay Collaborative assessment History of Previous Operations: Relevant previous surgery/procedure and date(s) (ect) Allergies: Allergies Allergy/AdvReac Type Severity Reaction Status Date / Time Iodinated Contrast Media Allergy Severe Hives Verified 04/26/23 15:07 [Contrast Dye] bee pollen [BEE STINGS] Allergy Unknown anaphylaxis Verified 04/26/23 15:07 metaxalone [From Skelaxin] Allergy Unknown Unknown Verified 04/26/23 15:07 monocryl/vicryl sutures Allergy Unknown unknown Verified 04/26/23 15:07 morphine [MORPHINE] Allergy Unknown unknown Verified 04/26/23 15:07 moxifloxacin [From Avelox] Allergy Unknown Unknown Verified 04/26/23 15:07 orange [ORANGES] Allergy Unknown anaphylaxis Verified 04/26/23 15:07 red dye Allergy Unknown Hives Verified 04/26/23 15:07 Sulfa (Sulfonamide Allergy Unknown UNKNOWN Verified 04/26/23 15:07 Antibiotics) [SULFA (SULFONAMIDE ANTIBIOTICS)] venom-wasp Allergy Unknown Anaphylaxis Verified 04/26/23 15:07 lamotrigine [From Lamictal] AdvReac Intermediate hx of Verified 04/26/23 15:07 yennifer on doses greater that 200 mg Adhesive Bandages Allergy Unknown Hives Uncoded 04/26/23 15:07 lychees Allergy Unknown Hives Uncoded 04/26/23 15:07 Review of Systems Sugical H&P ROS: Negative: Constitution, Cardiovascular and Respiratory and Yes, Specify: Psychiatric (cycling no si) Exam Surgical H&P Exam: Normal: HEENT, Normal: Heart, Normal: Lungs and Normal: Neurological Plan Diagnosis/Plan: Unchanged I have reviewed the history and physical and performed a pertinent physical examination on my patient. No changes have occurred unless specified. Time Spent With Patient Time: Total time managing care of this patient today ____ minutes.
--- NOTE | 2024-01-20 08:09 | HO.ECTPROC ---
ECT Procedure Note Diagnosis/Treatment Date of Service: 01/20/24 Diagnosis: Bipolar disorder Previous ECT Date: 01/04/24 Treatment: Maintenance Interval Clinical Notes: pt continues to have cycling periods of dysphoria Time: Total time managing care of this patient today ____ minutes. ECT Settings Device: THYMATRON DGx Electrode Placement: Right Unilateral Program/Pulse Width: 0.25 Energy Percent: 20 Seizure Duration By EEG (in seconds): 23 Medications Administration General Anesthetic: Methohexital (100 plus 20 lidocaine ) Muscle Relaxant: Succinylcholine (100) Ancillary Medications Anti-emetics: Zofran - Pre ECT Miscillaneous Medications: Propofol (30) Airway Management Airway Management: Bag Mask Ventilation Treatment Recommendations No Changes Recommended: No change Notes: has difficulty with iv access pt states generally feels better with ect more stable denies si no cognitive complaints Pt Tolerated Procedure w/o Issue: Yes
--- NOTE | 2024-01-20 08:24 | HO.ANESPROP2 ---
[facility] Active Problems Active Problems: All Active Problems (Updated 08/26/23 @ 10:51 by Martin German RN) Abnormal MRI, breast (Acute) At high risk for breast cancer (Acute) Well woman exam with routine gynecological exam (Acute) History of HPV infection (Acute) Family history of breast cancer (Acute) Mastodynia of left breast (Acute) Bipolar 1 disorder (Acute) Past Medical History Medical History ADHD Anxiety Asthma Bipolar 1 disorder Depression Deviated septum GERD (gastroesophageal reflux disease) History of electroconvulsive therapy History of electroconvulsive therapy PTSD (post-traumatic stress disorder) Vasovagal episode Family History Family History Maternal Aunt Breast cancer, Onset Age: 35 Paternal Aunt Breast cancer, Onset Age: 44 Paternal Uncle Renal cancer Pancreatic cancer Family history of problems with anesthesia: No Surgical History Surgical History History of bunionectomy History of Problems with Anesthesia: No Social History Social History Household Members: None Housing: Apartment Are you a primary career consultant to a significant other at home: No Do you presently have visiting nurse or other home services: No Comment: medicated in PACU Patient Tobacco Use Status: Never used Tobacco Second Hand Smoke Exposure: No Advance Directives: No Advance Directives Information Provided: Yes service: No Sexual orientation: Did not discuss. Meds Allergies Allergy/AdvReac Type Severity Reaction Status Date / Time Iodinated Contrast Media Allergy Severe Hives Verified 04/26/23 15:07 [Contrast Dye] bee pollen [BEE STINGS] Allergy Unknown anaphylaxis Verified 04/26/23 15:07 metaxalone [From Skelaxin] Allergy Unknown Unknown Verified 04/26/23 15:07 monocryl/vicryl sutures Allergy Unknown unknown Verified 04/26/23 15:07 morphine [MORPHINE] Allergy Unknown unknown Verified 04/26/23 15:07 moxifloxacin [From Avelox] Allergy Unknown Unknown Verified 04/26/23 15:07 orange [ORANGES] Allergy Unknown anaphylaxis Verified 04/26/23 15:07 red dye Allergy Unknown Hives Verified 04/26/23 15:07 Sulfa (Sulfonamide Allergy Unknown UNKNOWN Verified 04/26/23 15:07 Antibiotics) [SULFA (SULFONAMIDE ANTIBIOTICS)] venom-wasp Allergy Unknown Anaphylaxis Verified 04/26/23 15:07 lamotrigine [From Lamictal] AdvReac Intermediate hx of Verified 04/26/23 15:07 yennifer on doses greater that 200 mg Adhesive Bandages Allergy Unknown Hives Uncoded 04/26/23 15:07 lychees Allergy Unknown Hives Uncoded 04/26/23 15:07 Active Medications: Current Medications Lactated Ringer's (Lr) 1,000 mls @ 50 mls/hr IVCONT .Q20H AUGUSTO Home Medications Medication Instructions Recorded Confirmed Last Taken Type albuterol 90 mcg/actuation aerosol mcg inhalation 08/12/20 04/26/23 08/26/20 History inhaler mcg cetirizine 10 mg tablet (Zyrtec) 10 mg PO DAILY 08/12/20 04/26/23 08/28/20 History clonazepam 1 mg tablet 1 mg PO DAILY 08/12/20 04/26/23 08/26/20 History 1 mg clozapine 50 mg tablet (Clozaril) 50 mg PO BID 08/12/20 04/26/23 08/28/20 History diphenhydramine HCl 50 mg capsule 50 mg PO TID PRN Allergy Symptoms 08/12/20 04/26/23 Unknown History (Banophen) epinephrine 0.1 mg/mL injection 0.1 mg IM Q30M PRN Allergic 08/12/20 04/26/23 08/26/20 History syringe Reaction 0.1 mg famotidine 40 mg tablet 40 mg PO BEDTIME 08/12/20 04/26/23 08/28/20 History fluticasone 100 mcg-salmeterol 50 1 inh inhalation BID 08/12/20 04/26/23 08/28/20 History mcg/dose blistr powdr for inhalation (Advair Diskus) fluticasone propionate 50 1 spray intranasal BID 08/12/20 04/26/23 08/28/20 History mcg/actuation nasal spray,suspension ipratropium 0.5 mg-albuterol 3 mg 3 ml inhalation QID 08/12/20 04/26/23 08/26/20 History (2.5 mg base)/3 mL nebulization 3 mL soln temazepam 30 mg capsule 30 mg PO BEDTIME PRN Insomnia 08/12/20 04/26/23 08/26/20 History 30 mg azelastine 137 mcg (0.1 %) nasal 2 spray intranasal BID 02/09/23 04/26/23 Unknown History spray aerosol cariprazine 6 mg capsule (Vraylar) 6 mg PO DAILY 02/09/23 04/26/23 Unknown History dextroamphetamine-amphetamine ER 30 mg PO DAILY 02/09/23 04/26/23 Unknown History 30 mg 24hr capsule,extend release (Adderall XR) hydroxyzine pamoate 50 mg capsule 50 mg PO TID 02/09/23 04/26/23 Unknown History (Vistaril) ipratropium bromide 21 mcg (0.03 2 spray intranasal BID 02/09/23 04/26/23 Unknown History %) nasal spray metoprolol tartrate 25 mg tablet 25 mg PO DAILY 02/09/23 04/26/23 Unknown History ondansetron HCl 8 mg tablet 8 mg PO Q8H 02/09/23 04/26/23 Unknown History trazodone 150 mg tablet 150 mg PO BEDTIME PRN 02/09/23 04/26/23 Unknown History Exam Height,Weight and Vital Signs: Height 5 ft 8 in Weight 59.421 kg Last Vital Signs Temp 97.5 F 01/20/24 06:45 Pulse 82 01/20/24 06:45 Resp 18 01/20/24 06:45 BP 114/66 01/20/24 06:45 Pulse Ox 97 01/20/24 06:45 O2 Del Method Room Air 01/20/24 06:45 Airway Mallampati Class: II TM Dist: >3cm Neck ROM: Full Heart: rrr Lungs: cta Assessment and Plan Assessment Anesthesia Assessment: Anesthesia Plan Discussed and Chart Reviewed Final Anesthetic Review Family History of Problems with Anesthesia: No History of Problems with Anesthesia: No NPO: Yes ASA Class: III Final Preanesthetic Review: No Changes in Pt Med Stat, Meds/Allgs Chart Reviewed and Consent Obtained/Reviewed Patient Risk: Intermediate Procedure Risk: Intermediate Anesthetic Plan Anesthetic Plan: GA Disposition: Standard PACU
[2024-01-20] MEDS: Acetaminophen 325 MG TABLET 650 MG PO (08:55)
[2024-01-20] MEDS: oxyCODONE HCl Immed Release 5 MG TABLET 10 MG PO (08:56)
== END 2024-01-20 09:30 | disposition home or self-care (01) ==
PROVIDERS: PCP Internal Medicine; Visit Provider Psychiatry & Neurology Psychiatry
PROC: (CPT 90870; principal; 2024-01-20 15:00)
DX: F31.9 Bipolar disorder, unspecified (principal); F41.8 Other specified anxiety disorders; F90.9 Attention-deficit hyperactivity disorder, unspecified type; F43.10 Post-traumatic stress disorder, unspecified; J45.909 Unspecified asthma, uncomplicated; Z79.51 Long term (current) use of inhaled steroids; Z79.899 Other long term (current) drug therapy; Z88.1 Allergy status to other antibiotic agents; Z88.2 Allergy status to sulfonamides; Z88.5 Allergy status to narcotic agent; Z88.8 Allergy status to other drugs, medicaments and biological substances; Z91.041 Radiographic dye allergy status; L23.1 Allergic contact dermatitis due to adhesives
CPT/HCPCS: 90870; J0330; J1596; J1805; J2405; J2704

== ENCOUNTER → 2024-01-20 06:09 | Outpatient (BNV) | payer OTHER, SELFPAY | PROVIDERS: PCP Internal Medicine; Visit Provider Psychiatry & Neurology Psychiatry | DX: F33.3 Major depressive disorder, recurrent, severe with psychotic symptoms (principal) | CPT/HCPCS: 90870 ==

== ENCOUNTER 2024-10-04 14:04 | Outpatient (AMB) | payer OTHER, SELFPAY ==
[2024-10-04 14:10] VITALS: BP 118/76; BMI 19.4
--- NOTE | 2024-10-04 14:10 | A.OFFVIS_ITS ---
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: No Information Interpreted: clinical only Loading Inspector: Loading Inspector Present Allergies Iodinated Contrast Media [Contrast Dye] Allergy (Severe, Verified 10/04/24 14:12) Hives bee pollen [BEE STINGS] Allergy (Unknown, Verified 10/04/24 14:12) anaphylaxis metaxalone [From Skelaxin] Allergy (Unknown, Verified 10/04/24 14:12) Unknown monocryl/vicryl sutures Allergy (Unknown, Verified 10/04/24 14:12) unknown morphine [MORPHINE] Allergy (Unknown, Verified 10/04/24 14:12) unknown moxifloxacin [From Avelox] Allergy (Unknown, Verified 10/04/24 14:12) Unknown orange [ORANGES] Allergy (Unknown, Verified 10/04/24 14:12) anaphylaxis red dye Allergy (Unknown, Verified 10/04/24 14:12) Hives Sulfa (Sulfonamide Antibiotics) [SULFA (SULFONAMIDE ANTIBIOTICS)] Allergy (Unknown, Verified 10/04/24 14:12) UNKNOWN venom-wasp Allergy (Unknown, Verified 10/04/24 14:12) Anaphylaxis lamotrigine [From Lamictal] Adverse Reaction (Intermediate, Verified 10/04/24 14:12) hx of yennifer on doses greater that 200 mg Adhesive Bandages Allergy (Unknown, Uncoded 10/04/24 14:12) Hives lychees Allergy (Unknown, Uncoded 10/04/24 14:12) Hives Medication List - Last Reconciled 10/04/24 by Tatyana Boogie CNM albuterol 90 mcg/actuation mcg inhalation azelastine 2 sprays intranasal BID cariprazine (Vraylar) 6 mg PO DAILY cetirizine (Zyrtec) 10 mg PO DAILY clonazepam 1 mg PO DAILY clozapine (Clozaril) 50 mg PO BID dextroamphetamine-amphetamine 30 mg ER (Adderall XR) 30 mg PO DAILY diphenhydramine HCl (Banophen) 50 mg PO TID PRN epinephrine 0.1 mg IM Q30M PRN famotidine 40 mg PO BEDTIME fluticasone propion-salmeterol 100-50 mcg/dose (Advair Diskus) 1 inh inhalation BID fluticasone propionate 50 mcg/actuation 1 spray intranasal BID hydroxyzine pamoate (Vistaril) 50 mg PO TID ipratropium bromide 2 sprays intranasal BID ipratropium-albuterol 0.5 mg-3 mg(2.5 mg base)/3 mL 3 mL inhalation QID levonorgestrel-ethinyl estrad 0.15 mg-30 mcg (91) take 1 tablet daily following the order on blister card(s) PO montelukast (Singulair) 10 mg PO BEDTIME ondansetron HCl 8 mg PO Q8H oxycodone 10 mg PO BID PRN propranolol 20 mg PO BID temazepam 30 mg PO BEDTIME PRN trazodone 150 mg PO BEDTIME PRN Is last menstrual period known: No (no /med.) 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 She needs to stay on the control pills because the help so with the she is not interested in talking about another method such as a Mirena. She suffers from and also low platelets that need to be monitored re because of her medications. She has a lot of difficulty with access to her veins because of multiple uses for all of her procedures and ECT episodes. She was getting regular ECT for her bipolar and she decided that she was good enough take a little bit of a break and she feels very much that she needs to go to it now and she is going to the hospital straight from here for 12 lead EKG so that it can all be arranged. She wants to stay on control pills help her with periods she has in a very distraught way and is hoping CT helps but she has been told she says that she would need to get more of them close together to get her back to where she was and she is hoping it works. [facility] Medical History ADHD Anxiety Asthma Bipolar 1 disorder Depression Deviated septum GERD (gastroesophageal reflux disease) History of electroconvulsive therapy History of electroconvulsive therapy PTSD (post-traumatic stress disorder) Vasovagal episode Surgical History History of bunionectomy Family History Maternal Aunt Breast cancer, Onset Age: 35 Paternal Aunt Breast cancer, Onset Age: 44 Paternal Uncle Renal cancer Pancreatic cancer Social History Household Members: None Housing: Apartment Are you a primary career development facilitator to a significant other at home: No Do you presently have visiting nurse or other home services: No Comment: medicated in PACU Patient Tobacco Use Status: Never used Tobacco Second Hand Smoke Exposure: No service: No Sexual orientation: Did not discuss. Female Reproductive History Menstrual Age of Menarche: 13 control method: pills Total pregnancies: 0 Date of last pap smear: 02/09/23 (neg,2021,neg) History of abnormal pap smear: No Physical Exam Vital Signs: Last Vital Signs BP 118/76 10/04/24 14:10 BMI result Body Mass Index 19.4 Const General: healthy appearing, comfortable, no acute distress, well developed and alert Nutritional Appearance: average body habitus Orientation/consciousness: patient oriented x3 Limitations: no limitations HEENT Head: Yes normocephalic Neck Neck: Yes normal visual inspection Chest Chest palpation & inspection: normal inspection of the chest Breast/axilla inspection: normal inspection of the breasts and normal inspection of the axillae Breast/axilla palpation: normal palpation of the breasts and normal palpation of the axillae Resp Effort & Inspection: normal respiratory effort GI Inspection: Yes normal to inspection, No Abdominal wall edema and No distended Palpation (GI): Soft to palpation and nontender Other: Moist cervix nulliparous pink smooth healthy appearing scant mucus uterus is slightly retroverted slightly levo rotated mobile nontender adnexa nontender very good with Kegel. General: Yes bladder normal to palpation External Female Exam: normal external appearance and normal appearance of the urethra Speculum Exam - Vagina: normal appearance of the vagina, normal palpation and normal vaginal discharge Speculum Exam - Cervix: normal appearance of the cervix, normal palpation and nontender Bimanual exam- vagina & uterus: normal bimanual exam, normal palpation, uterine size normal, bladder normal to palpation, consistency normal, normal palpation, uterine mobility normal, uterine shape normal, No Cervical tenderness present, non-tender and no cervical motion tenderness Bimanual Exam- Adnexa, other: normal adnexae, no masses, normal and No adnexal tenderness Neuro General: patient oriented x3 Results Reviewed Results Reviewed: Name: Radha Ferguson Age/Sex: 37/F Attending: Tatyana Boogie CNM : 1985 Submitted by: Tatyana Boogie CNM Copies to: Jo Pacheco NP MR #: [id number] Status: DEP REF Collected: 02/09/23 Location: [facility] Received: 02/10/23 Interpretation Satisfactory for evaluation. Negative for intraepithelial lesion or malignancy. HPV mRNA E6/E7: NOT DETECTED This assay detects E6/E7 viral messenger RNA (mRNA) from 14 high-risk HPV types (16, 18, 31, 33, 35, 39, 45, 51, 52, 56, 58, 59, 66, 68) HPV testing performed by [facility], [place], [place]. See reference laboratory portion of the EMR for entire report. Clinical Information LMP: Unknown Previous PAP test: 11/23/21, WNL Material Received ThinPrep-Cervical Copies To Jo Pacheco NP [address] [facility] [address] [place], [place] [id number] Tatyana Boogie CNM [address] [place] [address] Dr. Isaac [address] [place] [id number] Electronically Signed By: Jasmin Scott 02/21/23 3264 The Pap Test is a screening procedure with the inherent possibility of both false negative and false positive results. Results should be interpreted in the context of historic and current clinical findings. Reliability of the Pap Test is enhanced by performing the test on a regular repetitive basis. Patient: Radha Ferguson Age/Sex: 37/F MR#: [id number] Page 1 of 1 See pathology section for copied report of MRI guided breast biopsy which was negative in 2023 done at [place] referred by Dr. Dunham. Name: Radha Ferguson Age/Sex: 36/F Attending: Tatyana Boogie CNM : 1985 Submitted by: Tatyana Boogie CNM Copies to: Gregorio Morales MD MR #: [id number] Status: DEP REF Collected: 11/19/21 Location: .LAB Received: 11/23/21 Interpretation Satisfactory for evaluation. Negative for intraepithelial lesion or malignancy. HPV mRNA E6/E7: NOT DETECTED This assay detects E6/E7 viral messenger RNA (mRNA) from 14 high-risk HPV types (16, 18, 31, 33, 35, 39, 45, 51, 52, 56, 58, 59, 66, 68) HPV testing performed by [facility], [place], [place]. See reference laboratory portion of the EMR for entire report. Clinical Information LMP: 08/28/21 BCP Previous PAP test: 2020, Abnormal Other history: 2018, Abnormal Material Received ThinPrep- Cervical Copies To Gregorio Morales MD [address] [place] [address] [address]. [place], [place] [id number] Tatyana Boogie CNM [address] [place] [address] [place] [id number] Electronically Signed By: GLENNY Olivera ([facility]) 11/25/21 0549 The Pap Test is a screening procedure with the inherent possibility of both false negative and false positive results. Results should be interpreted in the context of historic and current clinical findings. Reliability of the Pap Test is enhanced by performing the test on a regular repetitive basis. Patient: Radha Ferguson Age/Sex: 36/F MR#: [id number] Page 1 of 1 Name: Radha Ferguson Age/Sex: 35/F Attending: Kaylyn Goldberg CNM : 1985 Submitted by: Kaylyn Goldberg CNM Copies to: MR #: [id number] Status: DEP REF Collected: 11/18/20 Location: .LAB Received: 11/19/20 Interpretation Satisfactory for evaluation. Cytolysis noted. Negative for intraepithelial lesion or malignancy. HPV mRNA E6/E7: NOT DETECTED This assay detects E6/E7 viral messenger RNA (mRNA) from 14 high-risk HPV types (16, 18, 31, 33, 35, 39, 45, 51, 52, 56, 58, 59, 66, 68) HPV testing performed by [facility], [place], [place]. See reference laboratory portion of the EMR for entire report. Clinical Information LMP: Unknown date Previous PAP test: 11/13/19, abnormal Other history: HPV+ Material Received ThinPrep cervical Electronically Signed By: Xavier Villalobos MD 12/05/20 5588 The Pap Test is a screening procedure with the inherent possibility of both false negative and false positive results. Results should be interpreted in the context of historic and current clinical findings. Reliability of the Pap Test is enhanced by performing the test on a regular repetitive basis. Patient: Radha Ferguson Age/Sex: 35/F MR#: [id number] Page 1 of 1 11/15/2019 Pap was negative with positive HPV [facility]. No previous Paps in system. Assessment & Plan Assessment & Plan (1) Well woman exam with routine gynecological exam: Code(s): Z01.419 - Encounter for gynecological examination (general) (routine) without abnormal findings Category: Medical (2) History of HPV infection: Comment: 11/23/21pap= neg, neg hpv; 02/09/23 pap=neg w neg hpv. Code(s): Z86.19 - Personal history of other infectious and parasitic diseases Category: Medical (3) At high risk for breast cancer: Code(s): Z91.89 - Other specified personal risk factors, not elsewhere classified Category: Medical (4) Encounter for screening examination for sexually transmitted disease: Code(s): Z11.3 - Encounter for screening for infections with a predominantly sexual mode of transmission Category: Medical (5) Counseling for control, oral contraceptives: Code(s): Z30.09 - Encounter for other general counseling and advice on contraception Category: Medical (6) Bipolar 1 disorder: Code(s): F31.9 - Bipolar disorder, unspecified Category: Medical Plan She is heading to the hospital right now for her 12 lead EG that she is going to be getting done preparation for ECT for her bipolar that she gets at [facility] she gets frequent other blood draws usually done at [facility] but she does trust the phlebotomy team at [facility] she does want to get tested for STIs as well I suggest that she get them all done together so that she does not have in increased vena punctures. I wished her well for the ECT to be helpful for her and she asked me to pray for her, as she is hoping it works too. She wants to stay on the control pills and asked me to send them to her [facility] pharmacy on [address]. At her request I did order the blood work I did try to print the orders in case she needs to use a different lab but I was not able to. 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 Orders: Orders Hepatitis B Surface Antigen Today Z01.419 - Encounter for gynecological examination (general) (routine) without abnormal findings, Z11.3 - Encounter for screening for infections with a predominantly sexual mode of transmission, Z30.09 - Encounter for other general counseling and advice on contraception, Z86.19 - Personal history of other infectious and parasitic diseases, Z91.89 - Other specified personal risk factors, not elsewhere classified Hepatitis C Antibody Today Z01.419 - Encounter for gynecological examination (general) (routine) without abnormal findings, Z11.3 - Encounter for screening for infections with a predominantly sexual mode of transmission, Z30.09 - Encounter for other general counseling and advice on contraception, Z86.19 - Personal history of other infectious and parasitic diseases, Z91.89 - Other specified personal risk factors, not elsewhere classified HIV Ab/Ag Today Z01.419 - Encounter for gynecological examination (general) (routine) without abnormal findings, Z11.3 - Encounter for screening for infections with a predominantly sexual mode of transmission, Z30.09 - Encounter for other general counseling and advice on contraception, Z86.19 - Personal history of other infectious and parasitic diseases, Z91.89 - Other specified personal risk factors, not elsewhere classified Syphilis Screen Today Z01.419 - Encounter for gynecological examination (general) (routine) without abnormal findings, Z11.3 - Encounter for screening for infections with a predominantly sexual mode of transmission, Z30.09 - Encounter for other general counseling and advice on contraception, Z86.19 - Personal history of other infectious and parasitic diseases, Z91.89 - Other specified personal risk factors, not elsewhere classified Medications: Refilled levonorgestrel-ethinyl estrad 0.15 mg-30 mcg (91) take 1 tablet daily following the order on blister card(s) PO 91 ea 4RF Coding Level of Care Code Est Pt Prev Care 18-39y(25664) Diagnoses Well woman exam with routine gynecological exam Z01. History of HPV infection Z86.19 At high risk for breast cancer Z91.89 Encounter for screening examination for sexually transmitted disease Z11.3 Counseling for control, oral contraceptives Z30.09 Bipolar 1 disorder F31.9
== END 2024-10-04 14:55 | disposition home or self-care (01) ==
PROVIDERS: PCP Internal Medicine; Visit Provider Advanced Practice Midwife
DX: Z01.419 Encounter for gynecological examination (general) (routine) without abnormal findings (principal); Z86.19 Personal history of other infectious and parasitic diseases; Z91.89 Other specified personal risk factors, not elsewhere classified; Z11.3 Encounter for screening for infections with a predominantly sexual mode of transmission; Z30.09 Encounter for other general counseling and advice on contraception; F31.9 Bipolar disorder, unspecified
CPT/HCPCS: 99395

== ENCOUNTER 2024-10-04 14:04 | Outpatient (REF) | payer OTHER, SELFPAY ==
[2024-10-05 11:59] LABS: Bacterial Vaginosis PCR NEGATIVE (Negative); Candida Group PCR NOT DETECTED (Not Detect); Candida glab krusei PCR NOT DETECTED (Not Detect); Trichomonas vaginalis PCR NOT DETECTED (Not Detect)
[2024-10-05 14:31] LABS: CT PCR NOT DETECTED (Not Detect.); NG PCR NOT DETECTED (Not Detect.)
== END 2024-10-04 14:05 | disposition home or self-care (01) ==
LOC: HO.LAB 14:04
PROVIDERS: PCP Internal Medicine; Visit Provider Advanced Practice Midwife
DX: Z01.419 Encounter for gynecological examination (general) (routine) without abnormal findings (principal); Z20.2 Contact with and (suspected) exposure to infections with a predominantly sexual mode of transmission; Z86.19 Personal history of other infectious and parasitic diseases; Z91.89 Other specified personal risk factors, not elsewhere classified; F31.9 Bipolar disorder, unspecified
CPT/HCPCS: 0352U; 87491; 87591; 99385; 99459

== ENCOUNTER 2025-10-08 14:15 | Outpatient (AMB) | payer OTHER, SELFPAY ==
--- OUTSIDE RECORDS SUMMARY | 2022-12-30 16:28 | XMS_ITS | Continuity of Care Document ---
Author Organization [facility] Address [address] [place] [address] [address] [place] [phone] Phone Care Team Providers Care Oracle Applications Analyst Name Role Phone Juan Yap MD, FACS, RVT Unavailable Unavailable Advance Directives Directive Yes / No Effective Date File Name No Information Encounters Encounter Description Practice Location Reason(s) For Visit Diagnoses Date Provider Providers Copied on Encounter [facility], [address] [place] [address] [address], [place], [id number], tel:[phone] [facility] No Information 3 Joselito Leo. [address], [address], . tel:[phone] Family History Family Member Type Diagnosis Age At Onset No Information Payers Payer name Insurance type Covered constitution party ID Authoriza tion(s) No Information Social History Type Description Quantity Date Captured Comments Sex Female Smoking Status No Information Chief Complaint And Reason For Visit No Information Reason For Referral Reason For Referral No Information History Of Present Illness Encounter Date Complaint History Of Prese nt Illness No Information Functional Status Date Functional Assessmen t No Information Instructions Date Instruction Additional Infor mation No Information Assessments Type Assessment Date No Information Patient Care Teams Name Effective Dates (start - stop) Status Members No Information
--- NOTE | 2025-10-08 14:23 | MHC.OFFVIS ---
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[employer] Present (Mariela) Accompanied by: Self / Same As Patient Allergies Iodinated Contrast Media (Contrast Dye) Allergy (Severe, Verified 10/08/25 14:42) Hives bee pollen (BEE STINGS) Allergy (Unknown, Verified 10/08/25 14:42) anaphylaxis metaxalone (From Skelaxin) Allergy (Unknown, Verified 10/08/25 14:42) Unknown monocryl/vicryl sutures Allergy (Unknown, Verified 10/08/25 14:42) unknown morphine (MORPHINE) Allergy (Unknown, Verified 10/08/25 14:42) unknown moxifloxacin (From Avelox) Allergy (Unknown, Verified 10/08/25 14:42) Unknown orange (ORANGES) Allergy (Unknown, Verified 10/08/25 14:42) anaphylaxis red dye Allergy (Unknown, Verified 10/08/25 14:42) Hives Sulfa (Sulfonamide Antibiotics) (SULFA (SULFONAMIDE ANTIBIOTICS)) Allergy (Unknown, Verified 10/08/25 14:42) UNKNOWN venom-wasp Allergy (Unknown, Verified 10/08/25 14:42) Anaphylaxis lamotrigine (From Lamictal) Adverse Reaction (Intermediate, Verified 10/08/25 14:42) hx of yennifer on doses greater that 200 mg Adhesive Bandages Allergy (Unknown, Uncoded 10/04/24 14:12) Hives lychees Allergy (Unknown, Uncoded 10/04/24 14:12) Hives Medication List - Last Reconciled 10/08/25 by Tatyana Boogie CNM albuterol 90 mcg/actuation mcg inhalation azelastine 2 sprays intranasal BID cariprazine (Vraylar) 6 mg PO DAILY cetirizine (Zyrtec) 10 mg PO DAILY clonazepam 1 mg PO DAILY clozapine (Clozaril) 50 mg PO BID dextroamphetamine-amphetamine 30 mg ER (Adderall XR) 30 mg PO DAILY diphenhydramine HCl (Banophen) 50 mg PO TID PRN epinephrine 0.1 mg IM Q30M PRN famotidine 40 mg PO BEDTIME fluticasone propion-salmeterol 100-50 mcg/dose (Advair Diskus) 1 inh inhalation BID fluticasone propionate 50 mcg/actuation 1 spray intranasal BID hydroxyzine pamoate (Vistaril) 50 mg PO TID ipratropium bromide 2 sprays intranasal BID ipratropium-albuterol 0.5 mg-3 mg(2.5 mg base)/3 mL 3 mL inhalation QID levonorgestrel-ethinyl estrad 0.15 mg-30 mcg (91) take 1 tablet daily following the order on blister card(s) PO montelukast (Singulair) 10 mg PO BEDTIME ondansetron HCl 8 mg PO Q8H oxycodone 10 mg PO BID PRN propranolol 20 mg PO BID temazepam 30 mg PO BEDTIME PRN trazodone 150 mg PO BEDTIME PRN HPI HPI 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 She is interested in STD screening though she has not been sexually active since the previous visit in 2023 however she is possibly anticipating future activity so she would like to have updated testing. She is on control pills which have made her periods much more tolerable and she takes them on a cyclic basis with a withdrawal bleed every 3 months and this works well for her and she is just about to start her menses right now. She had several concerns she had some previous discomfort in her left breast that she likened to sensations that she had had when there were some areas of concern that needed to be evaluated by MRIs and biopsies in the past and so she was concerned about those and was worried she said she did not have any further appointments with Dr. Dunham and she did not know how to get a regular mammogram scheduled as she is now 40. 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 She has never been anything other than a straight a student and this is such a very difficult experienced to process and she has had great difficulty despite people telling her to have jorge. She she told me directly that she is not at risk currently of hurting herself but she is feeling quite hopeless. [facility] Medical History History of electroconvulsive therapy ADHD Asthma GERD (gastroesophageal reflux disease) PTSD (post-traumatic stress disorder) Deviated septum History of electroconvulsive therapy Anxiety Depression Bipolar 1 disorder Vasovagal episode Surgical History History of bunionectomy Family History (Updated 10/08/25 @ 14:40 by Mariela Lara MA) Maternal Aunt Breast cancer, Onset Age: 35 Paternal Aunt Breast cancer, Onset Age: 44 Paternal Uncle Renal cancer Pancreatic cancer Father Colon cancer Social History Household Members: None Housing: Apartment Are you a primary behavioral health care manager to a significant other at home: No Do you presently have visiting nurse or other home services: No Comment: medicated in PACU Patient Tobacco Use Status: Never used Tobacco Second Hand Smoke Exposure: No service: No Sexual orientation: Did not discuss. Female Reproductive History Menstrual Age of Menarche: 13 Date of last pap smear: 02/09/23 (negative pap smear, negative hpv ) Physical Exam Vital Signs: BMI result Body Mass Index 19.7 Const General: healthy appearing, comfortable, no acute distress, well developed and alert Nutritional Appearance: average body habitus Orientation/consciousness: patient oriented x3 Limitations: no limitations HEENT Head: Yes normocephalic Neck Neck: Yes normal visual inspection Chest Chest palpation & inspection: normal inspection of the chest Breast/axilla inspection: normal inspection of the breasts and normal inspection of the axillae Breast/axilla palpation: normal palpation of the breasts and normal palpation of the axillae Resp Effort & Inspection: normal respiratory effort GI Inspection: Yes normal to inspection, No Abdominal wall edema and No distended Palpation (GI): Soft to palpation and nontender Other: External exam within normal limits vagina pink and moist there is a slightly pinkish brownish tinge to the mucus indicative of beginning light menses/withdrawal bleed cervix is nulliparous long close thick mobile nontender uterus feels midposition mobile nontender (patient told me that she had been told in the past she had a tilted uterus it was not very apparent today.). Moderate tone with Kegel. General: Yes bladder normal to palpation External Female Exam: normal external appearance and normal appearance of the urethra Speculum Exam - Vagina: normal appearance of the vagina, normal palpation and normal vaginal discharge Speculum Exam - Cervix: normal appearance of the cervix, normal palpation and nontender Bimanual exam- vagina & uterus: normal bimanual exam, normal palpation, uterine size normal, bladder normal to palpation, consistency normal, normal palpation, uterine mobility normal, uterine shape normal, No Cervical tenderness present, non-tender and no cervical motion tenderness Bimanual Exam- Adnexa, other: normal adnexae, no masses, normal and No adnexal tenderness Neuro General: patient oriented x3 Results Reviewed Results Reviewed: Name: Radha Del Cid Age/Sex: 37/F Attending: Tatyana Boogie CNM : 1985 Submitted by: Tatyana Boogie CNM Copies to: Jo Pacheco NP MR #: [id number] Status: DEP REF Collected: 02/09/23 Location: [facility] Received: 02/10/23 Interpretation Satisfactory for evaluation. Negative for intraepithelial lesion or malignancy. HPV mRNA E6/E7: NOT DETECTED This assay detects E6/E7 viral messenger RNA (mRNA) from 14 high-risk HPV types (16, 18, 31, 33, 35, 39, 45, 51, 52, 56, 58, 59, 66, 68) HPV testing performed by [employer], [place], [place]. See reference laboratory portion of the EMR for entire report. Clinical Information LMP: Unknown Previous PAP test: 11/23/21, WNL Material Received ThinPrep-Cervical Copies To Jo Pacheco [employer] [address] [facility] [address] [place] [address] Tatyana Boogie CNM [address] [place], [place] [address] [place], [place] [id number] Electronically Signed By: Jasmin Scott 02/21/23 8594 The Pap Test is a screening procedure with the inherent possibility of both false negative and false positive results. Results should be interpreted in the context of historic and current clinical findings. Reliability of the Pap Test is enhanced by performing the test on a regular repetitive basis. Patient: Radha Del Cid Age/Sex: 37/F MR#: [id number] Page 1 of 1 atient: Radha Del Cid MR#: [id number] : 1985 Acct:[id number] Age/Sex: 38 / F ADM Date: 08/22/23 Loc: HO.MRI Attending Dr: Robert Dunham MD Ordering Physician: Robert Dunham MD Date of Service: 08/22/23 Procedure(s): MR breast BI wo/w con Accession Number(s): [id number] cc: ROSEMARIE EDWARD MD; Robert Dunham MD; Tatyana Boogie~ EXAMINATION: MR BREAST WITHOUT AND WITH CONTRAST, BILATERAL CLINICAL INFORMATION: High-risk screening. Lifetime risk of breast cancer based on the Luz Maria Marcos model is 29%. Family history of breast cancer. Several aunts with premenopausal breast cancer. COMPARISON: Mammography 04/13/2023. TECHNIQUE: Imaging was performed with a dedicated breast coil. Prior to the administration of contrast, bilateral axial T1 and bilateral axial T2 weighted sequences were obtained. After the uneventful administration of?6 mL of Gadavist, dynamic contrast-enhanced VIBRANT series through the breasts in the axial plane were performed. Subtracted images were performed and reviewed. A delayed sagittal sequence through both breasts was acquired. Additionally, CAD post-processing, including maximum intensity projections, 3-D reconstructions and kinetic analysis, were performed an independent workstation and reviewed by the interpreting radiologist is a portion of this exam. FINDINGS: The breasts are comprised of scattered fibroglandular elements. The tissue undergoes moderate background enhancement. LEFT BREAST: A 10 mm linear ductal nonmass enhancement at 10 o'clock (series 101 image 47/102) 8 cm from the nipple. Finding is T2 isointense. Type I and type II plateau enhancement kinetics. No mammographic correlate. MR-guided core biopsy is advised. A 5 mm T2 bright nonenhancing left breast mass at 3 o'clock (series 5 image 23/36), 2.5 cm from the nipple, most consistent with a cyst. No additional findings on volume renderings or kinetic analysis. RIGHT BREAST: No suspicious masslike or non-masslike enhancement. No abnormal skin thickening or nipple retraction. No abnormal architectural distortion. Review of the T2 weighted images demonstrates no fibrocystic changes or dilated ducts. Review of kinetic images reveals no additional findings. There is no suspicious internal mammary chain or axillary adenopathy. Limited views of the chest and abdomen are unremarkable. MR/MR breast BI wo/w con IMPRESSION: There is a 10 mm linear ductal nonmass enhancement in the left breast at 10 o'clock. MR-guided core biopsy is advised in this high-risk patient. ASSESSMENT: LEFT BREAST: BI-RADS 4 - Suspicious finding. RIGHT BREAST: BI-RADS 1 - Negative. RECOMMENDATIONS: MR-guided core biopsy left breast nonmass enhancement 10 o'clock. Recommendation given to Chasidy MARQUES on 08/25/23 @ 3:31pm. pt-RADHA DEL CID Dictated By: Robetr Maxwell MD Signed By: <Electronically signed by Robert Maxwell MD in OV> 08/25/23 1654 DD/ 1300 TD/TT: Educational Recruiter: VALENCIA Assessment & Plan Assessment & Plan (1) Bipolar 1 disorder: Code(s): F31.9 - Bipolar disorder, unspecified Category: Medical (2) Well woman exam with routine gynecological exam: Code(s): Z01.419 - Encounter for gynecological examination (general) (routine) without abnormal findings Category: Medical (3) History of HPV infection: Comment: 11/23/21pap= neg, neg hpv; 02/09/23 pap=neg w neg hpv. Code(s): Z86.19 - Personal history of other infectious and parasitic diseases Category: Medical (4) Family history of breast cancer: Code(s): Z80.3 - Family history of malignant neoplasm of breast Category: Medical (5) Mastodynia of left breast: Code(s): N64.4 - Mastodynia Category: Medical (6) At high risk for breast cancer: Code(s): Z91.89 - Other specified personal risk factors, not elsewhere classified Category: Medical (7) Encounter for screening examination for sexually transmitted disease: Code(s): Z11.3 - Encounter for screening for infections with a predominantly sexual mode of transmission Category: Medical (8) Counseling for control, oral contraceptives: Code(s): Z30.09 - Encounter for other general counseling and advice on contraception Category: Medical Plan This was a lengthy visit for 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 She is interested in STD screening though she has not been sexually active since the previous visit in 2023 however she is possibly anticipating future activity so she would like to have updated testing. She is on control pills which have made her periods much more tolerable and she takes them on a cyclic basis with a withdrawal bleed every 3 months and this works well for her and she is just about to start her menses right now. She had several concerns she had some previous discomfort in her left breast that she likened to sensations that she had had when there were some areas of concern that needed to be evaluated by MRIs and biopsies in the past and so she was concerned about those and was worried she said she did not have any further appointments with Dr. Dunham and she did not know how to get a regular mammogram scheduled as she is now 40. 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 She has never been anything other than a straight a student and this is such a very difficult experienced to process and she has had great difficulty despite people telling her to have jorge. She she told me directly that she is not at risk currently of hurting herself but she is feeling quite hopeless. I refilled her control prescription for her I ordered STD screening labs at her request that she would get done with her other lab work as there is only 1 gold leaf layer to is able to access her veins and sometimes they have needed a central line. She assures me that she does have close follow-up with her support network and family and therapist and to psychiatrist who check in on her and she assured me that she was okay. I offered what support I could for her in this difficult challenge of her career goals being met with an obstacle. Orders: Orders Hepatitis C Antibody Today F31.9 - Bipolar disorder, unspecified, N64.4 - Mastodynia, Z01.419 - Encounter for gynecological examination (general) (routine) without abnormal findings, Z11.3 - Encounter for screening for infections with a predominantly sexual mode of transmission, Z30.09 - Encounter for other general counseling and advice on contraception, Z80.3 - Family history of malignant neoplasm of breast, Z86.19 - Personal history of other infectious and parasitic diseases, Z91.89 - Other specified personal risk factors, not elsewhere classified HIV Ab/Ag Today F31.9 - Bipolar disorder, unspecified, N64.4 - Mastodynia, Z01.419 - Encounter for gynecological examination (general) (routine) without abnormal findings, Z11.3 - Encounter for screening for infections with a predominantly sexual mode of transmission, Z30.09 - Encounter for other general counseling and advice on contraception, Z80.3 - Family history of malignant neoplasm of breast, Z86.19 - Personal history of other infectious and parasitic diseases, Z91.89 - Other specified personal risk factors, not elsewhere classified Pap Smear Today Z11.3 - Encounter for screening for infections with a predominantly sexual mode of transmission CT NG by PCR Vag/Cerv Today Z11.3 - Encounter for screening for infections with a predominantly sexual mode of transmission Hepatitis B Surface Antigen Today F31.9 - Bipolar disorder, unspecified, N64.4 - Mastodynia, Z01.419 - Encounter for gynecological examination (general) (routine) without abnormal findings, Z11.3 - Encounter for screening for infections with a predominantly sexual mode of transmission, Z30.09 - Encounter for other general counseling and advice on contraception, Z80.3 - Family history of malignant neoplasm of breast, Z86.19 - Personal history of other infectious and parasitic diseases, Z91.89 - Other specified personal risk factors, not elsewhere classified Syphilis Screen Today F31.9 - Bipolar disorder, unspecified, N64.4 - Mastodynia, Z01.419 - Encounter for gynecological examination (general) (routine) without abnormal findings, Z11.3 - Encounter for screening for infections with a predominantly sexual mode of transmission, Z30.09 - Encounter for other general counseling and advice on contraception, Z80.3 - Family history of malignant neoplasm of breast, Z86.19 - Personal history of other infectious and parasitic diseases, Z91.89 - Other specified personal risk factors, not elsewhere classified MM tomosynthesis screening BI Today N64.4 - Mastodynia, Z01.419 - Encounter for gynecological examination (general) (routine) without abnormal findings, Z12.31 - Encounter for screening mammogram for malignant neoplasm of breast, Z80.3 - Family history of malignant neoplasm of breast, Z91.89 - Other specified personal risk factors, not elsewhere classified Bacterial Vaginosis Panel Today Z11.3 - Encounter for screening for infections with a predominantly sexual mode of transmission Referrals Breast Surgery Referral F31.9 - Bipolar disorder, unspecified, N64.4 - Mastodynia, Z01.419 - Encounter for gynecological examination (general) (routine) without abnormal findings, Z30.09 - Encounter for other general counseling and advice on contraception, Z80.3 - Family history of malignant neoplasm of breast, Z86.19 - Personal history of other infectious and parasitic diseases, Z91.89 - Other specified personal risk factors, not elsewhere classified Medications: Refilled levonorgestrel-ethinyl estrad 0.15 mg-30 mcg (91) take 1 tablet daily following the order on blister card(s) PO 91 ea 4RF Coding Level of Care Code Est Pt Prev Care 40-64y(96693) Diagnoses Bipolar 1 disorder F31.9 Well woman exam with routine gynecological exam Z01.419 History of HPV infection Z86.19 Family history of breast cancer Z80.3 Mastodynia of left breast N64.4 At high risk for breast cancer Z91.89 Encounter for screening examination for sexually transmitted disease Z11.3 Counseling for control, oral contraceptives Z30.09
[2025-10-08 14:28] VITALS: BMI 19.7
--- OUTSIDE RECORDS SUMMARY | 2025-10-08 18:08 | XMS_ITS | Encounter Summary ---
Author Organization [facility] Address [address] [place] [address] Care Team Providers Care Clinical Counselor Name Role Phone Brook Malik MD Primary Care Provider [phone] Encounter Details Date Type Department Care Team (Late st Contact Info) Description 03/08/2017 Scanned Document [facility] [place] [address] [place] [address] Samina Maya MD [address] [place] [address] Social History Tobacco Use Types Packs/Day Years Used Date Smoking Tobacco: Never Alcohol Use Standard Drinks/Week Comments No 0 (1 standard drink = 0.6 oz pur e alcohol) Comments No Sex and Gender Information Value Date Recorded Sex Assigned at Female 12/08/2023 10:29 AM EST Legal Sex Female 12:37 PM EDT Gender Identity Female 12/08/2023 10:29 AM EST Sexual Orientation Heterosexual (straight) 12/08 10:29 AM EST documented as of this encounter Plan of Treatment Not on file documented as of this encounter Visit Diagnoses Not on filedocumented in this encounter Care Teams Clinical Counselor Relationship Specialty Start Date End Date Brook Malik MD [address] [place] [address] PCP - General Internal Medicine 11/02/23 documented as of this encounter
--- OUTSIDE RECORDS SUMMARY | 2025-10-08 18:08 | XMS_ITS | Encounter Summary ---
Author Organization [facility] Address [address] [place] [address] Care Team Providers Care Nursing Tech Name Role Phone Brook Malik MD Primary Care Provider [phone] Encounter Details Date Type Department Care Team (Late st Contact Info) Description 07/20/2016 Scanned Document [facility] [place] [address] [place] [id number] Provider, Generic Social History Tobacco Use Types Packs/Day Years Used Date Smoking Tobacco: Never Assessed Alcohol Use Standard Drinks/Week Comments Yes 0 (1 standard drink = 0.6 oz pur e alcohol) Comments Unknown Sex and Gender Information Value Date Recorded Sex Assigned at Female 12/08/2023 10:29 AM EST Legal Sex Female 12:37 PM EDT Gender Identity Female 12/08/2023 10:29 AM EST Sexual Orientation Heterosexual (straight) 12/08 10:29 AM EST documented as of this encounter Plan of Treatment Not on file documented as of this encounter Visit Diagnoses Not on filedocumented in this encounter Care Teams Nursing Tech Relationship Specialty Start Date End Date Brook Malik MD [address] [place] [address] PCP - General Internal Medicine 11/02/23 documented as of this encounter
--- OUTSIDE RECORDS SUMMARY | 2025-10-08 18:08 | XMS_ITS | Clinical Summary ---
Author Organization Formerly [facility] Address [address] [place] [address] Care Team Providers Care Fourdrinier Machine Operator Name Role Phone Brook Malik MD Primary Care Provider [phone] [phone] Allergies Active Allergy Reactions Criticality Noted Date Comments Adhesives/Tape Rash/Dermatitis Low 09/11/2016 Amitriptyline Unknown/Patient and Family Unable to Define Medium 06/07/2016 Amoxicillin-Pot Clavulanate GI Intolerance/Nausea/Vomiti ng Low 06/07/2016 Bee Venom Anaphylaxis High 09/13/2016 Largo Anaphylaxis High 06/07/2016 Doxepin Unknown/Patient and Family Unable to Define Medium 06/07/2016 Fluoxetine Rash/Dermatitis Low 06/07/2016 Iodinated Contrast Media Shortness Of Breath High Metaxalone Unknown/Patient and Family Unable to Define Medium 06/07/2016 Morphine Anaphylaxis High 06/07/2016 Red Dye #40 (Allura Red) Unknown/Patient and Family Unable to Define Medium 09/13/2016 Sulfa Antibiotics Hives Medium 06/07/2016 Trazodone Unknown/Patient and Family Unable to Define Medium 06/07/2016 Zolpidem Unknown/Patient and Family Unable to Define Medium 06/07/2016 Medications * This document contains information received from the source organization and may not represent a complete record from that organization. fluticasone-salm eterol (ADVAIR) 100-50 mcg/inh diskus inhalerIndicatio ns:Asthma 1 puff 2 (two) times a day Indications: Asthma. Advair Diskus 100 mcg-50 mcg inhalation powder 3 Active ipratropium-albu terol (DUONEB) 0.5-2.5 mg/3 mL nebulizer solutionIndicati ons:Bronchospasm Indications: Spasm of Lung Air Passages. DuoNeb 0.5 mg-2.5 mg/3 mL inhalation solution 3 Active EPINEPHrine (EPIPEN JR) 0.15 mg/0.3 mL injectionIndicat ions:Anaphylaxis Indications: Life-Threatenin g Allergic Reaction. EpiPen JR 2-Suresh 0.15 mg injectable kit 3 Active mirtazapine (REMERON) 15 MG tablet Take 15 mg by mouth nightly. 1 7 Active lamoTRIgine (LaMICtal) 100 MG tablet Take 100 mg by mouth daily. Active busPIRone (BUSPAR) 10 MG tablet Take 10 mg by mouth 2 (two) times a day. Active dexmethylphenida te (FOCALIN) 10 MG tablet Take 10 mg by mouth 2 (two) times a day. Active prazosin (MINIPRESS) 2 MG capsule Take 4 mg by mouth. Active clonazePAM (KlonoPIN) 1 MG tablet Take 1 mg by mouth 2 times daily (every 12 hours) as needed. Active cetirizine (ZyrTEC) 10 MG tablet Take 10 mg by mouth daily. Active cloZAPine (CLOZARIL) 100 MG tablet Take 100 mg by mouth. Active OMEprazole (PriLOSEC) 40 MG capsuleIndicatio ns:Gastroesophag eal reflux disease without esophagitis Take 1 capsule (40 mg total) by mouth daily. 90 capsule 7 Active QUASENSE 0.15-0.03 MG per tabletIndication s: control Take 1 tablet by mouth daily. 91 tablet 8 Active levonorgestrel-e thinyl estradiol (SEASONALE) 0.15-0.03 MG per tabletIndication s: control TAKE 1 TABLET BY MOUTH DAILY. 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 Eating disorder 12/28/2016 Bipolar 2 disorder, major depressive episode 04/2017 Suicidal ideation 09/11/2016 Bipolar 1 disorder, depressed, severe 09/11/2016 Attention or concentration deficit 06/10/2015 Depression 06/10/2015 Fatigue 06/10/2015 Generalized anxiety disorder 06/10/2015 Atopic rhinitis 06/04/2014 Asthma 06/04/2014 Insomnia 06/04/2014 Anemia 05/30/2013 Herpes simplex 05/30/2013 Vitamin D deficiency 05/30/2013 Vitamin D deficiency Resolved Problems Problem Noted Date Diagnosed Date Resolved Date Personality disorder in adult 12/28/2016 12/30/2016 Bipolar 1 disorder, depressed 09/13/2016 12/28/2016 Acne 06/10/2015 06/16/2017 Dermatitis of the 05/30/2013 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 06/11/2016 Vitamin D deficiency 017 Immunizations Immunization Administration Dates Next Due HPV Nonavalent 12/03/2008,07/30/2008,06/04/2008 PPD Test 09/14/2016 Tdap 06/09/2011 Family History Medical History Relation Name Comments Drug abuse Cousin Asthma Father Depression Father Diabetes Father Fatty Liver Disease Father Thyroid disease Father Depression Maternal Aunt Suicide attempts Maternal Aunt Bipolar disorder Maternal Uncle Arthritis Mother Depression Mother Mental illness Mother BRISA,DEP Depression Paternal Aunt Relation Name Status Comments Cousin Father Alive Maternal Aunt Maternal Uncle Mother Alive Paternal Aunt Social History Tobacco Use Types Packs/Day Years Used Date Smoking Tobacco: Never Smokeless Tobacco: Never Alcohol Use Standard Drinks/Week Comments No 0 (1 standard drink = 0.6 oz pur e alcohol) Comments No Sex and Gender Information Value Date Recorded Sex Assigned at Female 12/08/2023 10:29 AM EST Legal Sex Female 12:37 PM EDT Gender Identity Female 12/08/2023 10:29 AM EST Sexual Orientation Heterosexual (straight) 12/08 10:29 AM EST Last Filed Vital Signs Vital Sign Reading Time Taken Comments Blood Pressure 140/80 06/16/2017 4:50 PM EDT Pulse 115 06/16/2017 4:50 PM EDT Temperature 37 C (98.6 F) 06/16/2017 4:50 PM EDT Respiratory Rate 16 01/07/2017 10:45 AM EST Oxygen Saturation 98% 01/07/2017 9:45 AM EST Inhaled Oxygen Concentration - - Weight 65.5 kg (144 lb 8 oz) 12/27/2016 6:25 PM EST Height 172.7 cm (5' 8 ) 06/16/2017 4:50 PM EDT Body Mass Index 20.15 12/27/2016 6:25 PM EST Plan of Treatment Health Maintenance Due Date Last Done Comments Hepatitis C Virus Screening 1985 HIV Screening 1998 Hepatitis B Vaccines (1 of 3 - 19+ 3-dose series) 2004 Pneumococcal Vaccine: Pediat candace (0-5 Years) and At-Risk Patients (6 to 49 Years) (1 of 2 - PCV) 2004 Pap Smear (Ages 21-65) 06/16/2020 06/16/2017, 2015 DTaP/Tdap/Td Vaccines (2 - T d or Tdap) 06/09/2021 06/09/2011 Mammogram 2025 Influenza Vaccine 06/14/2025 12/03/2023, , 09/25/2022, Additional history exists COVID-19 Vaccine (2024-2 6 season) 2025 12/03/2023, 03/09/2022, 03/03/2021, Additional history exists HPV Vaccines Completed 12/03/2008, 07/15, 06/04/2008 Procedures Procedure Name Priority Date/Time Associated Diagnosis Comments THINPREP PAP TEST (WARP PICKER) WITH HPV SCREEN Routine 06/16/2017 5:00 PM EDT Routine gynecological examination from Last 3 Months or Most Recently Relevant to Health Maintenance Results * (ABNORMAL) ThinPrep Pap Test (Chair Spring Assembler) with HPV Screen (06/16/2017 5:00 PM EDT) Clinical Information None given [facility] LMP: ? [facility] Previous PAP: NONE GIVEN [facility] Previous Biopsy NONE GIVEN [facility] Source: Cervix [facility] Statement of Adequacy: [facility] Comment: Satisfactory for evaluation. Endocervical/transformation zone component present. Age and/or menstrual status not provided General Categorization: (A) [facility] Comment:EPITHELIAL CELL ABNO RMALITY Interpretation/Re sult: (A) [facility] Comment: Atypical Squamous Cells of Undetermined Significance (ASC-US) Comment: [facility] Comment: This case could not be evaluated with computer assisted technology. The slide was manually screened according to routine procedures. Psychopaedic Nurse: MJ TELLO [facility] Comment: KF, CT(ASCP) CT screening location: [place] [address] Pathologist: JEANE Brown [facility]OLOG[facility] Comment: Tatyana Oneal M.D., (electronic signature) [facility] [phone] Hpv Mrna [id number] Detected( A) Not Detected [facility] Comment: This test was performed using the APTIMA HPV Assay ([employer] This assay detects E6/E7 viral messenger RNA (mRNA) from 14 high-risk HPV types (16,18,31,33,35,39,45,51,52,56,58,59,66,68). 06/16/2017 5:00 PM EDT 06/17/2017 6:10 AM EDT Narrative Resulting Agency Comment Performing Organization Information: Site ID: [id number] Name: [facility] Address: [address] [place] [id number] Director: Anthony Walton MD Site ID: [id number] Name: [facility] Address: [address] [place] [id number] Director: Gabriel Singleton MD us Samina Maya MD LAB AMB PATH/CYTO ORDERABLES Final Result [address] [id number], [place] [phone] [facility] [address] [address] from Last 3 Months or Most Recently Relevant to Health Maintenance Insurance MEDICAID OUT OF STATE [facility]GD MEDICARE OUT OF [facility] Advance Directives Documents on File Type Date Recorded Patient Mail Processing Associate Expl anation Advance Directive-Scan 12/23/2016 * Full Code (Latest Code Status on File) Date Activated Date Inactivated Comments 12/27/2016 5:51 PM 01/07/2017 4:53 PM * Full Code Date Activated Date Inactivated Comments 09/13/2016 9:39 PM 09/17/2016 8:57 PM Question Answer Comments Decision Thoroughly Discussed with: Patient * Full Code Date Activated Date Inactivated Comments 09/11/2016 7:08 PM 09/13/2016 4:34 PM Care Teams Fourdrinier Machine Operator Relationship Specialty Start Date End Date Brook Malik MD [address] [place] [address] PCP - General Internal Medicine 11/02/23
--- OUTSIDE RECORDS SUMMARY | 2025-10-08 18:08 | XMS_ITS | Encounter Summary ---
Author Organization [facility] Address [address] [place] [address] Care Team Providers Care Supervisor Sewing Department Name Role Phone Brook Malik MD Primary Care Provider [phone] [phone] Encounter Details Date Type Department Care Team (Late st Contact Info) Description 03/28/2014 Scanned Document [facility] [place] [address] [place] [id number] Provider, Generic Social History Tobacco Use Types Packs/Day Years Used Date Smoking Tobacco: Never Assessed Comments Unknown Sex and Gender Information Value Date Recorded Sex Assigned at Female 12/08/2023 10:29 AM EST Legal Sex Female 12:37 PM EDT Gender Identity Female 12/08/2023 10:29 AM EST Sexual Orientation Heterosexual (straight) 12/08 10:29 AM EST documented as of this encounter Plan of Treatment Not on file documented as of this encounter Procedures Procedure Name Priority Date/Time Associated Diagnosis Comments LAB RESULT 03/28/2014 documented in this encounter Results * LAB RESULT (03/28/2014) Narrative 03/28/2014 Ordered by an unspecified provider. us Generic Provider HX AMB PROCEDURES Final Result documented in this encounter Visit Diagnoses Not on filedocumented in this encounter Care Teams Supervisor Sewing Department Relationship Specialty Start Date End Date Brook Malik MD [address] [place] [address] PCP - General Internal Medicine 11/02/23 documented as of this encounter
--- OUTSIDE RECORDS SUMMARY | 2025-10-08 18:08 | XMS_ITS | Encounter Summary ---
Author Organization [facility] Address [address] [place] [address] Care Team Providers Care Labor Trainer Name Role Phone Brook Malik MD Primary Care Provider [phone] [phone] Encounter Details Date Type Department Care Team (Late st Contact Info) Description 10/13/2016 Scanned Document [facility] [place] [address] [facility] [place] [address] Samina Maya MD [address] [place] [address] Social History Tobacco Use Types Packs/Day Years [...] on filedocumented in this encounter Care Teams Labor Trainer Relationship Specialty Start Date End Date Brook Malik MD [address] [place] [address] PCP - General Internal Medicine 11/02/23 documented as of this encounter
--- OUTSIDE RECORDS SUMMARY | 2025-10-08 18:08 | XMS_ITS | Encounter Summary ---
Author Organization [facility] Address [address] [place] [address] Care Team Providers Care Financial Institution Vice President Name Role Phone Brook Malik MD Primary Care Provider +1 [phone] Encounter Details Date Type Department Care Team (Late st Contact Info) Description 06/16/2017 Scanned Document [facility] [place] [address] [place] [address] Samina Maya MD [address] [place], [place] [address] Social History Tobacco Use Types Packs/Day Years [...] on filedocumented in this encounter Care Teams Financial Institution Vice President Relationship Specialty Start Date End Date Brook Malik MD [address] [place] [address] PCP - General Internal Medicine 11/02/23 documented as of this encounter
--- OUTSIDE RECORDS SUMMARY | 2025-10-08 18:08 | XMS_ITS | Encounter Summary ---
Author Organization [facility] Address [address] [place] [address] Care Team Providers Care Chair Pad Maker Name Role Phone Brook Malik MD Primary Care Provider [phone] [phone] Encounter Details Date Type Department Care Team (Late st Contact Info) Description 10/30/2018 Scanned Document [facility] [place] [address] [place] [address] Provider, External, [address] [place] [address] Social History Tobacco Use Types Packs/Day Years [...] on filedocumented in this encounter Care Teams Chair Pad Maker Relationship Specialty Start Date End Date Brook Malik MD [address] [place] [address] PCP - General Internal Medicine 11/02/23 documented as of this encounter
--- OUTSIDE RECORDS SUMMARY | 2025-10-08 18:08 | XMS_ITS | Encounter Summary ---
Author Organization [facility] Address [address] [place] [address] Care Team Providers Care Interface Control Officer Name Role Phone Brook Malik MD Primary Care Provider +1 [phone] Encounter Details Date Type Department Care Team (Late st Contact Info) Description 12/27/2016 Scanned Document [facility] [place] [address] [place] [address] Samina Maya MD [address] [place] [address] Social History Tobacco Use Types Packs/Day Years [...] on filedocumented in this encounter Care Teams Interface Control Officer Relationship Specialty Start Date End Date Brook Malik MD [address] [place] [address] PCP - General Internal Medicine 11/02/23 documented as of this encounter
--- OUTSIDE RECORDS SUMMARY | 2025-10-08 18:08 | XMS_ITS | Encounter Summary ---
Author Organization [facility] Address [address] [place] [address] Care Team Providers Care Credit Report Checker Name Role Phone Brook Malik MD Primary Care Provider +1 -[phone] Encounter Details Date Type Department Care Team (Late st Contact Info) Description 11/23/2016 Scanned Document [facility] [place] [address] [place] [address] Samina Maya MD [address] [place] [address] Social History Tobacco Use Types Packs/Day Years [...] on filedocumented in this encounter Care Teams Credit Report Checker Relationship Specialty Start Date End Date Brook Malik MD [address] [place] [address] PCP - General Internal Medicine 11/02/23 documented as of this encounter
--- OUTSIDE RECORDS SUMMARY | 2025-10-08 18:08 | XMS_ITS | Encounter Summary ---
Author Organization [facility] Address [address] [place] [address] Care Team Providers Care Head Chef Name Role Phone Brook Malik MD Primary Care Provider [phone] [phone] Encounter Details Date Type Department Care Team (Late st Contact Info) Description 06/07/2016 Abstract [facility] [place] [address] [place] [address] Kelly Owusu MA [address] [place] [address] Social History Tobacco Use Types Packs/Day Years [...] on filedocumented in this encounter Care Teams Head Chef Relationship Specialty Start Date End Date Brook Malik MD [address] [place] [address] PCP - General Internal Medicine 11/02/23 documented as of this encounter
--- OUTSIDE RECORDS SUMMARY | 2025-10-08 18:08 | XMS_ITS | Encounter Summary ---
Author Organization [facility] Address [address] [place] [address] Care Team Providers Care Division Human Resources Manager Name Role Phone Brook Malik MD Primary Care Provider +1 [phone] Encounter Details Date Type Department Care Team (Late st Contact Info) Description 06/14/2017 Scanned Document [facility] [place] [address] [place] [address] Samina Maya MD [address] [place] [address] Social History Tobacco Use Types Packs/Day Years [...] on filedocumented in this encounter Care Teams Division Human Resources Manager Relationship Specialty Start Date End Date Brook Malik MD [address] [place] [address] PCP - General Internal Medicine 11/02/23 documented as of this encounter
--- OUTSIDE RECORDS SUMMARY | 2025-10-08 18:08 | XMS_ITS | Encounter Summary ---
Author Organization [facility] Address [address] [place] [address] Care Team Providers Care Precision Dancer Name Role Phone Brook Malik MD Primary Care Provider +1 [phone] Encounter Details Date Type Department Care Team (Late st Contact Info) Description 06/17/2017 Scanned Document [facility] [place] [address] [place] [address] Samina Maya MD [address] [place], [place] [address] Social History Tobacco Use Types Packs/Day Years [...] on filedocumented in this encounter Care Teams Precision Dancer Relationship Specialty Start Date End Date Brook Malik MD [address] [place] [address] PCP - General Internal Medicine 11/02/23 documented as of this encounter
--- OUTSIDE RECORDS SUMMARY | 2025-10-08 18:08 | XMS_ITS | Encounter Summary ---
Author Organization [facility] [place] [facility] Address [address] [place] [address] Care Team Providers Care Commercial Sheet Metal Foreman Name Role Phone Brook Malik MD Primary Care Provider +1 [phone] Encounter Details Date Type Department Care Team (Late st Contact Info) Description 11/24/2016 Scanned Document [facility] [place] [address] [place] [address] Samina Maya MD [address] [place] [address] Social History Tobacco Use Types Packs/Day Years [...] on filedocumented in this encounter Care Teams Commercial Sheet Metal Foreman Relationship Specialty Start Date End Date Brook Malik MD [address] [place] [address] PCP - General Internal Medicine 11/02/23 documented as of this encounter
--- OUTSIDE RECORDS SUMMARY | 2025-10-08 18:08 | XMS_ITS | Clinical Summary ---
Author Organization [facility] Address [address] [facility] [address] [place] [address] Phone Care Team Providers Care Sparmaker Name Role Phone Samina Maya MD Primary Care Provider [phone] Allergies Active Allergy Reactions Criticality Noted Date Comments Iodinated Contrast Media 11/11/2016 Morphine (Pf) 11/11/2016 Sulfa (Sulfonamide Antibiotics) 10/15 Medications busPIRone (BUSPAR) 10 MG tablet Take 10 mg by mouth 3 (three) times a day. Active lamoTRIgine (LAMICTAL) 200 MG tablet 200 mg 2 (two) times a day. Active lisdexamfetamine (VYVANSE) 60 MG capsule 60 mg. Active fluticasone-salm eterol (ADVAIR DISKUS) 100-50 mcg/dose DISKUS Acti ve mirtazapine (REMERON) 15 MG tablet nightly. Active clonazePAM (KLONOPIN) 1 MG tablet Active Social History Tobacco Use Types Packs/Day Years Used Date Smoking Tobacco: Never Assessed Education Answer Date Recorded Are you interested in more education? Not on jamee e 03/11/2023 Are you concerned about learning? Not on file 03/11/2023 No 03/11/2023 No 03/11/2023 Digital Access Answer Date Recorded No 04/11/2023 No 04/11/2023 No 04/11/2023 Reliable internet access at home? Not on file 04/11/2023 Device with a working camera? Not on file Comments Unknown Sex and Gender Information Value Date Recorded Sex Assigned at Not on file Legal Sex Female 12:04 AM EDT Gender Identity Not on file Sexual Orientation Not on file Last Filed Vital Signs Vital Sign Reading Time Taken Comments Blood Pressure 109/59 11/12/2016 1:00 AM EST Pulse 74 11/12/2016 1:00 AM EST Temperature 37.4 C (99.3 F) 11/11/2016 9:30 PM EST Respiratory Rate 16 11/12/2016 1:00 AM EST Oxygen Saturation 99% 11/12/2016 1:00 AM EST Inhaled Oxygen Concentration - - Weight - - Height - - Body Mass Index - - Plan of Treatment Health Maintenance Due Date Last Done Comments DEPRESSION SCREENING 1997 SMOKING Hx and SMOKELESS TOBACCO SCREENING 1998 HEPATITIS C SCREENING 2003 HIV ONE-TIME SCREENING (18-65 YEARS) 2003 PAP SMEAR 2006 Adult Td,Tdap Booster 06/09/2021 06/09/2011 INFLUENZA VACCINE (#1) 2025 , 08/30/2019, 08/30/2018, Additional history exists COVID-19 VACCINE ( season) 2025 02/10/2021 MAMMOGRAM 08/22/2025 08/22/2023, 04/13/2023 HEPATITIS A VACCINES Aged Out No long er eligible based on patient's age to complete this topic HIB VACCINES Aged Out No longer eligi ble based on patient's age to complete this topic MENINGOCOCCAL VACCINES (ACWY) Aged Out No longer eligible based on patient's age to complete this topic MENINGOCOCCAL VACCINES (B) Aged Out N o longer eligible based on patient's age to complete this topic PNEUMOCOCCAL VACCINES (0-49 years) Aged Out No longer eligible based on patient's age to complete this topic Medical Devices Not on file Procedures Procedure Name Priority Date/Time Associated Diagnosis Comments BI MRI BREAST OUTSIDE (NO INTERPRETATION) Routine 08/22/2023 12:00 AM EDT from Last 3 Months or Most Recently Relevant to Health Maintenance Results * MRI Breast Outside (No Interpretation) (08/22/2023 12:00 AM EDT) Narrative Brandy Nicholas - 10/20/2023 12:37 PM EST This study is for PACS storage only and not for interpretation. Procedure Note Brandy Nicholas - 10/20/2023 This study is for PACS storage only and not for interpretation. us Unknown Unknown MD BRINK OUTSIDE IMAGING W/OUT INT ERPRETATION Final Result from Last 3 Months or Most Recently Relevant to Health Maintenance Insurance [employer] [place] [address] [place] [place] [address] HEALTH PLANS Member Subscriber Plan / Payer ([facility] 06/14/2015-Present) Name:Radha Ferguson Relation to Subscriber:Self Name:Radha Ferguson Payer ID:Not on file Type:Indemnity [address]: [address] [place] [id number] [place] [address] [place] [address] [place] [address] [place] [place] [address] HEALTH PLANS HEALTH PLANS HEALTH PLANS HEALTH PLANS Care Teams Sparmaker Relationship Specialty Start Date End Date Samina Maya MD PCP - General Family Medicine 01/29/16 Additional Source Comments The information contained in this document represents components of the legal health record. It is not the complete legal health record.[facility]
--- OUTSIDE RECORDS SUMMARY | 2025-10-08 18:08 | XMS_ITS | Encounter Summary ---
Author Organization [facility] Address [address] [place] [address] Care Team Providers Care Beater Out Leveling Machine Name Role Phone Brook Malik MD Primary Care Provider [phone] Encounter Details Date Type Department Care Team (Late st Contact Info) Description 07/21/2018 Scanned Document [facility] [place] [address] [place] [address] Samina Maya MD [address] [place], [place] [address] Social History Tobacco Use Types Packs/Day Years [...] on filedocumented in this encounter Care Teams Beater Out Leveling Machine Relationship Specialty Start Date End Date Brook Malik MD [address] [place] [address] PCP - General Internal Medicine 11/02/23 documented as of this encounter
--- OUTSIDE RECORDS SUMMARY | 2025-10-08 18:08 | XMS_ITS | Encounter Summary ---
Author Organization [facility] Address [address] [place] [address] Care Team Providers Care Rda Name Role Phone Brook Malik MD Primary Care Provider +1 [phone] Encounter Details Date Type Department Care Team (Late st Contact Info) Description 01/27/2017 Scanned Document [facility] [place] [address] [place] [address] Samina Maya MD [address] [place] [address] Social History Tobacco Use Types Packs/Day Years [...] on filedocumented in this encounter Care Teams Rda Relationship Specialty Start Date End Date Brook Malik MD [address] [place] [address] PCP - General Internal Medicine 11/02/23 documented as of this encounter
--- OUTSIDE RECORDS SUMMARY | 2025-10-08 18:08 | XMS_ITS ---
Author Name [facility] Organization Unknown History of Medication Use Medication Directions Dispensed Refills Start Date End Date Stat us gadobutrol (GADAVIST) injection 6 mL 6 mL, Intravenous, Once in imaging, contrast, Starting on Maryse 12/08/23 at 1133, For 1 dose, Radiology Appointment 12/08/2023 12/08/19 completed levonorgestrel-ethinyl estradiol (SEASONALE) 0.15-0.03 MG per tablet TAKE 1 TABLET BY MOUTH DAILY. 05/29/2018 active QUASENSE 0.15-0.03 MG per tablet Take 1 tablet by mouth daily. 05/26/2018 active OMEprazole (PriLOSEC) 40 MG capsule Take 1 capsule (40 mg total) by mouth daily. 07/04/2017 active mirtazapine (REMERON) 15 MG tablet Take 15 mg by mouth nightly. 04/03/2017 active EPINEPHrine (EPIPEN JR) 0.15 mg/0.3 mL injection Indications: Life-Threatening Allergic Reaction. EpiPen JR 2-Suresh 0.15 mg injectable kit 05/30/2013 active fluticasone-salmeterol (ADVAIR) 100-50 mcg/inh diskus inhaler 1 puff 2 (two) times a day Indications: Asthma. Advair Diskus 100 mcg-50 mcg inhalation powder 05/30/2013 active ipratropium-albuterol (DUONEB) 0.5-2.5 mg/3 mL nebulizer solution Indications: Spasm of Lung Air Passages. DuoNeb 0.5 mg-2.5 mg/3 mL inhalation solution 05/30/2013 active busPIRone (BUSPAR) 10 MG tablet Take 10 mg by mouth 2 (two) times a day. active cetirizine (ZyrTEC) 10 MG tablet Take 10 mg by mouth daily. active clonazePAM (KlonoPIN) 1 MG tablet Take 1 mg by mouth 2 times daily (every 12 hours) as needed. active cloZAPine (CLOZARIL) 100 MG tablet Take 100 mg by mouth. active dexmethylphenidate (FOCALIN) 10 MG tablet Take 10 mg by mouth 2 (two) times a day. active lamoTRIgine (LaMICtal) 100 MG tablet Take 100 mg by mouth daily. active prazosin (MINIPRESS) 2 MG capsule Take 4 mg by mouth. active Allergies Allergen Reaction Severity Comment Documented Date Source Statu s RED DYE UNKNOWN/PATIENT AND FAMILY UNABLE TO DEFINE 09/13/2016 [facility] active IODINATED CONTRAST MEDIA SHORTNESS OF BREATH 09/11/2016 [facility] active ZOLPIDEM UNKNOWN/PATIENT AND FAMILY UNABLE TO DEFINE 06/07/2016 [facility] active BEE VENOM ANAPHYLAXIS [facility] ADHESIVES/TAPE RASH/DERMATITIS [facility] AMITRIPTYLINE UNKNOWN/PATIENT AND FAMILY UNABLE TO DEFINE [facility] CITRUS ANAPHYLAXIS [facility] DOXEPIN UNKNOWN/PATIENT AND FAMILY UNABLE TO DEFINE [facility] FLUOXETINE RASH/DERMATITIS [facility] METAXALONE UNKNOWN/PATIENT AND FAMILY UNABLE TO DEFINE [facility] MORPHINE ANAPHYLAXIS [facility] SULFA ANTIBIOTICS HIVES [facility] TRAZODONE UNKNOWN/PATIENT AND FAMILY UNABLE TO DEFINE [facility] Problems Problem Status Onset Date Problem Type Date of Resoluti on Source Other abnormal and inconclusive findings on diagnostic imaging of breast active EncounterDiagnosisAct [facility] Immunizations Vaccine Date Source Lot Number Status PPD Test 09/14/2016 [facility] [id number] completed Tdap 06/09/2011 [facility] completed HPV Nonavalent 12/03/2008 [facility] completed HPV Nonavalent 07/30/2008 [facility] completed HPV Nonavalent 06/04/2008 [facility] completed Encounters Encounter Type Encounter Reason Primary Diagnosis Location Date Ambulatory Other abnormal and inconclusive findings on diagnostic imaging of breast Other abnormal and inconclusive findings on diagnostic imaging of breast [facility] 12/08/2023 Ambulatory Other abnormal and inconclusive findings on diagnostic imaging of breast Other abnormal and inconclusive findings on diagnostic imaging of breast [facility] 12/08/2023 Ambulatory [facility] 11/17/2023 Care Team Organization Name Specialty Phone Email Start Date End Da brandi [facility] 12/04/2023 01/30/2025 [facility] VASU EDWARD Primary Care 11/20/2023 01/30/[address] [facility] 11/17/2023 11/17/2023
== END 2025-10-08 16:03 | disposition home or self-care (01) ==
LOC: HO.HWSM 14:15
PROVIDERS: PCP Internal Medicine; Visit Provider Advanced Practice Midwife
DX: Z01.419 Encounter for gynecological examination (general) (routine) without abnormal findings (principal); F31.9 Bipolar disorder, unspecified; Z86.19 Personal history of other infectious and parasitic diseases; Z80.3 Family history of malignant neoplasm of breast; N64.4 Mastodynia; Z91.89 Other specified personal risk factors, not elsewhere classified; Z11.3 Encounter for screening for infections with a predominantly sexual mode of transmission; Z30.09 Encounter for other general counseling and advice on contraception
CPT/HCPCS: 99396; 99459

== ENCOUNTER 2025-10-08 14:15 | Outpatient (REF) | payer OTHER, SELFPAY ==
[2025-10-09 13:06] LABS: Bacterial Vaginosis PCR NEGATIVE (Negative); Candida Group PCR DETECTED (Not Detect); Candida glab krusei PCR NOT DETECTED (Not Detect); Trichomonas vaginalis PCR NOT DETECTED (Not Detect)
[2025-10-09 13:39] LABS: CT PCR NOT DETECTED (Not Detect.); NG PCR NOT DETECTED (Not Detect.)
== END 2025-10-08 14:16 | disposition home or self-care (01) ==
LOC: HO.LNP 14:15
PROVIDERS: PCP Internal Medicine; Visit Provider Advanced Practice Midwife
DX: Z01.419 Encounter for gynecological examination (general) (routine) without abnormal findings (principal); Z30.09 Encounter for other general counseling and advice on contraception; Z20.2 Contact with and (suspected) exposure to infections with a predominantly sexual mode of transmission; F31.9 Bipolar disorder, unspecified; N64.4 Mastodynia; Z86.19 Personal history of other infectious and parasitic diseases; Z80.3 Family history of malignant neoplasm of breast; Z91.89 Other specified personal risk factors, not elsewhere classified
CPT/HCPCS: 81515; 87491; 87591; 87626; 88175; 99396

== ENCOUNTER 2025-11-04 07:59 | Outpatient (REF) | payer OTHER, SELFPAY ==
--- NOTE | ~2025-11-04 | US_ITS ---
EXAMINATION(S): 1. MM DIAGNOSTIC DIGITAL BREAST TOMOSYNTHESIS, BILATERAL 2. TARGETED ULTRASOUND OF THE LEFT BREAST CLINICAL INFORMATION: Order describes: 1. Left breast pain 2. Abnormal MRI. Patient had breast MRI on August 22, 2023, which describes left breast non-mass enhancement at 10 o'clock position at 8 cm from the nipple, and MR guided needle core biopsy was recommended. 3. Left breast MR guided needle core biopsy at [facility] on December 08, 2023. Target was located at 10 o'clock position at 8 cm from the nipple. Ribbon shape metallic clip was placed. Pathology results were benign and considered concordant with imaging. COMPARISON: Prior mammogram on April 13, 2023. Breast MRI on August 22, 2023. Previous MR guided needle core biopsy on December 08, 2023. Postprocedure mammogram on December 08, 2023. TECHNIQUE: Digital breast tomosynthesis is performed in both the mediolateral oblique and craniocaudal views along with computer-aided detection (CAD). Synthesized 2D images are generated from the tomosynthesis. Spot compression of the right breast was also obtained. Triangular skin marker was placed at the location of the left breast pain as indicated by the patient in the upper inner quadrant. FINDINGS: BREAST COMPOSITION: There are scattered areas of fibroglandular density. RIGHT BREAST: Focal asymmetry in the central breast along the retroareolar plane on the CC view presses out with spot compression, and on today's images, the local parenchyma is similar to 2023; therefore, the area most likely represented overlapping fibroglandular breast tissue. No significant masses, suspicious calcifications or other abnormalities are seen. LEFT BREAST: -Tissue marker associated with residual focal asymmetry in the upper inner quadrant, likely post procedure changes. -No suspicious mammographic findings adjacent to the triangular skin marker. -No new masses, suspicious calcifications or other abnormalities are seen. Targeted ultrasound of the left breast was performed at the location of the pain as indicated by the patient. The survey along the 8:00-10:00 axis did not reveal suspicious sonographic findings. US/US Breast LT Limited Mamm Only IMPRESSION: RIGHT BREAST: Negative, no mammographic evidence of malignancy. Normal interval follow-up is recommended in 12 months. LEFT BREAST: Negative, no evidence of malignancy. Clinical follow-up is recommended for the concern of focal pain. Otherwise, normal interval follow-up is recommended in 12 months. ASSESSMENT: BI-RADS: Category 1: Negative RECOMMENDATION: 1. Patient should be managed based on the clinical impression. 2. Otherwise, routine annual screening mammography. Results were provided to the patient at time of visit by the technologist. This patient's information was entered into a reminder system with a target due date for their next mammogram. Electronically signed by: Rishabh Lam MD 11/04/2025 10:45 AM LIZY
--- OUTSIDE RECORDS SUMMARY | 2025-11-04 08:02 | XMS_ITS | Encounter Summary ---
Author Organization [facility] Address [address] [place] [address] Care Team Providers Care Destaticizer Feeder Name Role Phone Brook Malik MD Primary Care Provider [phone] [phone] Encounter Details Date Type Department Care Team (Late st Contact Info) Description 06/17/2017 Scanned Document [facility] [place] [address] [place] [address] Samina Maya MD [address] [place], [place] [address] Social History Tobacco Use Types Packs/Day Years [...] on filedocumented in this encounter Care Teams Destaticizer Feeder Relationship Specialty Start Date End Date Brook Malik MD [address] [place] [address] PCP - General Internal Medicine 11/02/23 documented as of this encounter
--- OUTSIDE RECORDS SUMMARY | 2025-11-04 08:02 | XMS_ITS | Encounter Summary ---
Author Organization [facility] Address [address] [place] [address] Care Team Providers Care Jet Dyeing Machine Operator Name Role Phone Brook Malik MD Primary Care Provider [phone] [phone] Encounter Details Date Type Department Care Team (Late st Contact Info) Description 03/08/2017 Scanned Document [facility] [place] [address] [place] [address] Samina Maya MD [address] [place] [address] Social History Tobacco Use Types Packs/Day Years [...] on filedocumented in this encounter Care Teams Jet Dyeing Machine Operator Relationship Specialty Start Date End Date Brook Malik MD [address] [place] [address] PCP - General Internal Medicine 11/02/23 documented as of this encounter
--- OUTSIDE RECORDS SUMMARY | 2025-11-04 08:02 | XMS_ITS | Encounter Summary ---
Author Organization [facility] Address [address] [place] [address] Care Team Providers Care Export Packer Name Role Phone Brook Malik MD Primary Care Provider [phone] [phone] Encounter Details Date Type Department Care Team (Late st Contact Info) Description 11/24/2016 Scanned Document [facility] [place] [address] [place] [address] Samina Maya MD [address] [place] [address] Social History Tobacco Use Types Packs/Day Years [...] on filedocumented in this encounter Care Teams Export Packer Relationship Specialty Start Date End Date Brook Malik MD [address] [place] [address] PCP - General Internal Medicine 11/02/23 documented as of this encounter
--- OUTSIDE RECORDS SUMMARY | 2025-11-04 08:02 | XMS_ITS | Encounter Summary ---
Author Organization [facility] Address [address] [place] [address] Care Team Providers Care Avionics Supervisor Name Role Phone Brook Malik MD Primary Care Provider +1 [phone] Encounter Details Date Type Department Care Team (Late st Contact Info) Description 01/27/2017 Scanned Document [facility] [place] [address] [place] [address] Samina Maya MD [address] [place] [address] Social History Tobacco Use Types Packs/Day Years [...] on filedocumented in this encounter Care Teams Avionics Supervisor Relationship Specialty Start Date End Date Brook Malik MD [address] [place] [address] PCP - General Internal Medicine 11/02/23 documented as of this encounter
--- OUTSIDE RECORDS SUMMARY | 2025-11-04 08:02 | XMS_ITS | Encounter Summary ---
Author Organization [facility] Address [address] [place] [address] Care Team Providers Care Staple Side Laster Name Role Phone Brook Malik MD Primary Care Provider [phone] [phone] Encounter Details Date Type Department Care Team (Late st Contact Info) Description 06/14/2017 Scanned Document [facility] [place] [address] [place] [address] Samina Maya MD [address] [place] [address] Social History Tobacco Use Types Packs/Day Years [...] on filedocumented in this encounter Care Teams Staple Side Laster Relationship Specialty Start Date End Date Brook Malik MD [address] [place] [address] PCP - General Internal Medicine 11/02/23 documented as of this encounter
--- OUTSIDE RECORDS SUMMARY | 2025-11-04 08:02 | XMS_ITS | Encounter Summary ---
Author Organization [facility] Address [address] [place] [address] Care Team Providers Care Public Relations Studies Director Name Role Phone Brook Malik MD Primary Care Provider [phone] [phone] Encounter Details Date Type Department Care Team (Late st Contact Info) Description 12/27/2016 Scanned Document [facility] [place] [address] [place] [address] Samina Maya MD [address] [place] [address] Social History Tobacco Use Types Packs/Day Years [...] on filedocumented in this encounter Care Teams Public Relations Studies Director Relationship Specialty Start Date End Date Brook Mlaik MD [address] [place] [address] PCP - General Internal Medicine 11/02/23 documented as of this encounter
--- OUTSIDE RECORDS SUMMARY | 2025-11-04 08:02 | XMS_ITS | Encounter Summary ---
Author Organization [facility] Address [address] [place] [address] Care Team Providers Care Assistant To The Dean Name Role Phone Brook Malik MD Primary Care Provider +1 [phone] Encounter Details Date Type Department Care Team (Late st Contact Info) Description 03/28/2014 Scanned Document [facility] [place] [address] [place] [id number] Provider, Generic Social History Tobacco Use Types [...] on filedocumented in this encounter Care Teams Assistant To The Dean Relationship Specialty Start Date End Date Brook Malik MD [address] [place] [address] PCP - General Internal Medicine 11/02/23 documented as of this encounter
--- OUTSIDE RECORDS SUMMARY | 2025-11-04 08:02 | XMS_ITS | Encounter Summary ---
Author Organization [facility] Address [address] [place] [address] Care Team Providers Care Bag Liner Name Role Phone Brook Malik MD Primary Care Provider [phone] [phone] Encounter Details Date Type Department Care Team (Late st Contact Info) Description 10/13/[address] [facility] [place] [address] [facility] [place] [address] Samina Maya MD [address] [place] [address] Social History Tobacco Use Types Packs/Day Years [...] on filedocumented in this encounter Care Teams Bag Liner Relationship Specialty Start Date End Date Brook Malik MD [address] [place] [address] PCP - General Internal Medicine 11/02/23 documented as of this encounter
--- OUTSIDE RECORDS SUMMARY | 2025-11-04 08:02 | XMS_ITS | Encounter Summary ---
Author Organization [facility] Address [address] [place] [address] Care Team Providers Care Data Manager Name Role Phone Brook Malik MD Primary Care Provider +1 [phone] Encounter Details Date Type Department Care Team (Late st Contact Info) Description 07/20/2016 Scanned Document [facility] [place] [address] [place] [address] Provider, Generic Social History Tobacco Use Types [...] on filedocumented in this encounter Care Teams Data Manager Relationship Specialty Start Date End Date Brook Malik MD [address] [place] [address] PCP - General Internal Medicine 11/02/23 documented as of this encounter
--- OUTSIDE RECORDS SUMMARY | 2025-11-04 08:02 | XMS_ITS | Encounter Summary ---
Author Organization [facility] Address [address] [place] [address] Care Team Providers Care Cost Report Clerk Name Role Phone Brook Malik MD Primary Care Provider +1 [phone] Encounter Details Date Type Department Care Team (Late st Contact Info) Description 06/16/2017 Scanned Document [facility] [place] [address] [place] [address] Samina Maya MD [address] [place], [place] [address] Social History Tobacco Use Types Packs/Day Years [...] on filedocumented in this encounter Care Teams Cost Report Clerk Relationship Specialty Start Date End Date Brook Malik MD [address] [place] [address] PCP - General Internal Medicine 11/02/23 documented as of this encounter
--- OUTSIDE RECORDS SUMMARY | 2025-11-04 08:02 | XMS_ITS | Encounter Summary ---
Author Organization [facility] Address [address] [place] [address] Care Team Providers Care Coach Driver Name Role Phone Brook Malik MD Primary Care Provider +1 [phone] Encounter Details Date Type Department Care Team (Late st Contact Info) Description 11/23/2016 Scanned Document [facility] [place] [address] [place] [address] Samina Maya MD [address] [place] [address] Social History Tobacco Use Types Packs/Day Years [...] on filedocumented in this encounter Care Teams Coach Driver Relationship Specialty Start Date End Date Brook Malik MD [address] [place] [address] PCP - General Internal Medicine 11/02/23 documented as of this encounter
--- OUTSIDE RECORDS SUMMARY | 2025-11-04 08:03 | XMS_ITS | Clinical Summary ---
Author Organization [facility] Address [address] [facility] [address] [place] [address] Phone Care Team Providers Care Therapy Assistant Name Role Phone Samina Maya MD Primary Care Provider [phone] Allergies Active Allergy Reactions Criticality Noted Date [...] Relevant to Health Maintenance Insurance [employer] [place] [address] [place] [address] [place] [address] [place] [address] [place] [place] [address] [place] [place] [address] HE[employer] PLANS HEALTH PLANS HEALTH PLANS HEALTH PLANS Care Teams Therapy Assistant Relationship Specialty Start Date End Date Samina Maya MD PCP - General Family Medicine 01/29/16 Additional Source Comments The information contained in this document represents components of the legal health record. It is not the complete legal health record.[facility]
--- OUTSIDE RECORDS SUMMARY | 2025-11-04 08:03 | XMS_ITS | Encounter Summary ---
Author Organization [facility] Address [address] [place] [address] Care Team Providers Care Jack Setter Name Role Phone Brook Malik MD Primary Care Provider [phone] [phone] Encounter Details Date Type Department Care Team (Late st Contact Info) Description 07/21/2018 Scanned Document [facility] [place] [address] [place] [address] Samina Maya MD [address] [place], [place] [address] Social History Tobacco Use Types Packs/Day Years [...] on filedocumented in this encounter Care Teams Jack Setter Relationship Specialty Start Date End Date Brook Malik MD [address] [place] [address] PCP - General Internal Medicine 11/02/23 documented as of this encounter
--- OUTSIDE RECORDS SUMMARY | 2025-11-04 08:03 | XMS_ITS | Clinical Summary ---
Author Organization [facility] Address [address] [place] [address] Care Team Providers Care Garbage Collector Name Role Phone Brook Malik MD Primary Care Provider [phone] [phone] Allergies Active Allergy Reactions Criticality Noted Date Comments Adhesives/Tape Rash/Dermatitis Low 09/11/2016 Amitriptyline Unknown/Patient and Family Unable to Define Medium 06/07/2016 Amoxicillin-Pot Clavulanate GI Intolerance/Nausea/Vomiti ng Low 06/07/2016 Bee Venom Anaphylaxis High 09/13/2016 [place] Anaphylaxis High 06/07/2016 Doxepin Unknown/Patient and Family [...] Date/Time Associated Diagnosis Comments THINPREP PAP TEST (COMBAT CONTROL) WITH HPV SCREEN Routine 06/16/2017 5:00 PM EDT Routine gynecological examination from Last 3 Months or Most Recently Relevant to Health Maintenance Results * (ABNORMAL) ThinPrep Pap Test (Infant And Toddler Teacher) with HPV Screen (06/16/2017 5:00 PM EDT) Clinical Information None given [facility] LMP: ? [facility] Previous PAP: NONE GIVEN [facility] Previous Biopsy NONE GIVEN [facility] Source: Cervix [facility] Statement of Adequacy: [facility] Comment: Satisfactory for evaluation. Endocervical/transformation zone component present. Age and/or menstrual status not provided General Categorization: (A) [facility] Comment:EPITHELIAL CELL ABNO RMALITY Interpretation/Re sult: (A) [facility] Comment: Atypical Squamous Cells of Undetermined Significance (ASC-US) Comment: [facility] Comment: This case could not be evaluated with computer assisted technology. The slide was manually screened according to routine procedures. Animal Control Licensing Worker: MJ TELLO [facility] Comment: KF, CT(ASCP) CT screening location: [place] [address] Pathologist: JEANE Brown PATHOLOGY [facility] Comment: Tatyana Oneal M.D., (electronic signature) [facility] [phone] Hpv Mrna E6E7 Detected( A) Not Detected e|tab NL1 Comment: This test was performed using the APTIMA HPV Assay ([employer] This assay detects E6/E7 viral messenger RNA (mRNA) from 14 high-risk HPV types (16,18,31,33,35,39,45,51,52,56,58,59,66,68). 06/16/2017 5:00 PM EDT 06/17/2017 6:10 AM EDT Narrative Resulting Agency Comment Performing Organization Information: Site ID: [id number] Name: [employer] Address: [address] [place] [phone] Director: Anthony Walton MD Site ID: [id number] Name: [facility] Address: [address] [place] [phone] Director: Gabriel Singleton MD us Samina Maya MD LAB AMB PATH/CYTO ORDERABLES Final Result [address] [address], [place] [phone] e|tab [address] [address] from Last 3 Months or Most Recently Relevant to Health Maintenance Insurance MEDICAID OUT OF [facility] MEDICARE OUT OF [facility] Advance Directives Documents on File Type Date Recorded Patient Data Power Consultant Expl anation Advance Directive-Scan 12/23/2016 * Full Code (Latest Code Status on File) Date Activated Date Inactivated Comments 12/27/2016 5:51 PM 01/07/2017 4:53 PM * Full Code Date Activated Date Inactivated Comments 09/13/2016 9:39 PM 09/17/2016 8:57 PM Question Answer Comments Decision Thoroughly Discussed with: Patient * Full Code Date Activated Date Inactivated Comments 09/11/2016 7:08 PM 09/13/2016 4:34 PM Care Teams Garbage Collector Relationship Specialty Start Date End Date Brook Malik MD [address] [place] [address] PCP - General Internal Medicine 11/02/23"
--- OUTSIDE RECORDS SUMMARY | 2025-11-04 08:03 | XMS_ITS | Encounter Summary ---
Author Organization [facility] Address [address] [place] [address] Care Team Providers Care Acid Tank Cleaner Name Role Phone Brook Malik MD Primary Care Provider [phone] [phone] Encounter Details Date Type Department Care Team (Late st Contact Info) Description 10/30/2018 Scanned Document [facility] [place] [address] [place] [address] Provider, External, [address] [place] [address] Social History Tobacco Use Types Packs/Day Years [...] on filedocumented in this encounter Care Teams Acid Tank Cleaner Relationship Specialty Start Date End Date Brook Malik MD [address] [place] [address] PCP - General Internal Medicine 11/02/23 documented as of this encounter
== END 2025-11-04 08:00 | disposition home or self-care (01) ==
LOC: HO.MAMMO 07:59
PROVIDERS: PCP Internal Medicine; Visit Provider Advanced Practice Midwife
DX: N64.4 Mastodynia (principal); R92.8 Other abnormal and inconclusive findings on diagnostic imaging of breast; Z80.3 Family history of malignant neoplasm of breast; Z91.89 Other specified personal risk factors, not elsewhere classified
CPT/HCPCS: 76642; 77062; 77066

== ENCOUNTER → 2025-11-04 08:00 | Outpatient (BNV) | payer OTHER, SELFPAY | PROVIDERS: PCP Internal Medicine; Visit Provider Radiology Body Imaging | DX: R92.8 Other abnormal and inconclusive findings on diagnostic imaging of breast (principal) | CPT/HCPCS: 76642; 77066; G0279 ==